=== PATIENT | male | born 1950 | race Caucasian/White ===

== ENCOUNTER 2020-07-20 06:21 | Day surgery (SDC) | payer MEDICARE, SELFPAY ==
--- NOTE | 2020-07-19 12:18 | HO.ANESPROP2 ---
Documented by User: Sasha Henry 07/19/20 12:21 HPI - Anesthesia Eval Consult details Narrative: 69yo M for TURBT Last TURBT done 11/2019 with GA-LMA 5 PMFSH Past Medical History Medical History Bladder tumor Elevated cholesterol Hematuria HTN (hypertension) Prostate CA Surgical History Surgical History H/O prostate biopsy Social History Social History Smoking Status: Never smoker Second Hand Smoke Exposure: No Use of substances other than those prescribed or required for medical reasons: No Advance Directives: No Advance Directives Information Provided: No Meds Allergies Allergy/AdvReac Type Severity Reaction Status Date / Time No Known Allergies Allergy Unverified 07/01/20 15:38 [No Known Allergies*] acetaminophen [Percocet] AdvReac Unknown face got Verified 04/15/20 00:00 really red oxycodone [Percocet] AdvReac Unknown face got Verified 04/15/20 00:00 really red Home Medications Medication Instructions Recorded Confirmed Type atorvastatin 1 tab PO DAILY 07/19/20 07/19/20 History enzalutamide [Xtandi] mg PO 07/19/20 07/19/20 History lisinopril 1 tab PO DAILY 07/19/20 07/19/20 History tamsulosin 1 cap PO BID 07/19/20 07/19/20 History Exam Exam Date and Time: July 19, 2020 1218 Pertinent Lab Results Pertinent Lab Results: EKG 05/2020 NSR@72. LAD Laboratory Tests 06/03/20 06/03/20 06/03/20 20:21 20:21 20:21 WBC 9.0 Hgb 13.2 L Hct 40.3 L Plt Count 305 PT 10.4 L INR 0.9 APTT 30.6 Sodium 140 Potassium 4.8 Chloride 106 Bicarbonate 26 Anion Gap 13 BUN 38 H Creatinine 1.39 Estimated Creat Clear 63.8 Est GFR (Non-Af Amer) 51 Random Glucose 114 Assessment and Plan Assessment Anesthesia Assessment: Chart Reviewed Documented by User: Lisbeth Salas 07/20/20 08:15 PMFSH Past Medical History Medical History Bladder tumor Elevated cholesterol Hematuria HTN (hypertension) Prostate CA Surgical History Surgical History H/O prostate biopsy Social History Social History Smoking Status: Never smoker Second Hand Smoke Exposure: No Use of substances other than those prescribed or required for medical reasons: No Advance Directives: No Advance Directives Information Provided: No Meds Allergies Allergy/AdvReac Type Severity Reaction Status Date / Time No Known Allergies Allergy Unverified 07/01/20 15:38 [No Known Allergies*] acetaminophen [Percocet] AdvReac Unknown face got Verified 04/15/20 00:00 really red oxycodone [Percocet] AdvReac Unknown face got Verified 04/15/20 00:00 really red Home Medications Medication Instructions Recorded Confirmed Type atorvastatin 1 tab PO DAILY 07/19/20 07/19/20 History enzalutamide [Xtandi] mg PO 07/19/20 07/19/20 History lisinopril 1 tab PO DAILY 07/19/20 07/19/20 History tamsulosin 1 cap PO BID 07/19/20 07/19/20 History Assessment and Plan Assessment Anesthesia Assessment: Anesthesia Plan Discussed, Consent Obtained and Chart Reviewed Final Anesthetic Review NPO: Yes ASA Class: II Final Preanesthetic Review: No Changes in Pt Med Stat, Meds & Allergies Reviewed, Consent Obtained/Reviewed, Med/Surg/Anes Hx Reviewed and Anes Risks/Benef Reviewed Patient Risk: Low Procedure Risk: Low Assessment/Block/Sedation in SS: Assess/Block/Sedation-SS Anesthetic Plan Anesthetic Plan: GA Disposition: Standard PACU
[2020-07-20] VITALS (8 sets, daily range): BP systolic 124–141; BP diastolic 76–88; PULSE 59–71; RESP 16–20; TEMP 36; O2SAT 93–99; BMI 30.5
[2020-07-20] MEDS: levoFLOXacin/D5W 500 MG/100 ML PIGGYBACK 100 MG IV (07:00)
[2020-07-20] MEDS: Lactated Ringers 1,000 ML 100 ML IVCONT (07:00)
--- NOTE | 2020-07-20 07:22 | MHC.SHP ---
Surgical H&P Section A The patient is an INPATIENT: No The History & Physical has been completed within 30 days and I have reviewed it.: Yes Section B Chief Complaint: Secondary malignant neoplasm Allergies: Allergies Allergy/AdvReac Type Severity Reaction Status Date / Time No Known Allergies Allergy Unverified 07/01/20 15:38 [No Known Allergies*] acetaminophen [Percocet] AdvReac Unknown face got Verified 04/15/20 00:00 really red oxycodone [Percocet] AdvReac Unknown face got Verified 04/15/20 00:00 really red Plan Patient has been examined and remains a candidate for the planned procedure
[2020-07-20] MEDS: Gentamicin Sulfate/NaCl 80 MG/100 ML PIGGYBACK 100 MG IV (07:45)
--- NOTE | 2020-07-20 08:14 | PM.OP ---
Brief Operative Note Date of procedure: 07/20/20 Pre-op diagnosis: bladder cancer Post-op diagnosis: same Procedure: TURBT Anesthesia: GLMA Surgeon: Leon Jessica III Pathology: other (dome lesions pappillary. >2.5 less gutierrez 5 cm) Condition: stable Disposition: same day
--- NOTE | 2020-07-20 08:15 | HO.ANESPROP2 ---
[facility] Past Medical History Medical History Bladder tumor Elevated cholesterol Hematuria HTN (hypertension) Prostate CA Surgical History Surgical History H/O prostate biopsy Social History Social History Smoking Status: Never smoker Second Hand Smoke Exposure: No Use of substances other than those prescribed or required for medical reasons: No Advance Directives: No Advance Directives Information Provided: No Meds Allergies Allergy/AdvReac Type Severity Reaction Status Date / Time No Known Allergies Allergy Unverified 07/01/20 15:38 [No Known Allergies*] acetaminophen [Percocet] AdvReac Unknown face got Verified 04/15/20 00:00 really red oxycodone [Percocet] AdvReac Unknown face got Verified 04/15/20 00:00 really red Home Medications Medication Instructions Recorded Confirmed Type atorvastatin 1 tab PO DAILY 07/19/20 07/19/20 History enzalutamide [Xtandi] mg PO 07/19/20 07/19/20 History lisinopril 1 tab PO DAILY 07/19/20 07/19/20 History tamsulosin 1 cap PO BID 07/19/20 07/19/20 History Exam Exam Date and Time: July 20, 202015 Height,Weight and Vital Signs: Height 6 ft Weight 102.058 kg Last Vital Signs Temp 96.8 F 07/20/20 07:23 Pulse 71 07/20/20 07:23 Resp 16 07/20/20 07:23 BP 141/87 H 07/20/20 07:23 Pulse Ox 97 07/20/20 07:23 Airway Mallampati Class: II TM Dist: >3cm Neck ROM: Full Loose/Missing/Broken Teeth: No
--- NOTE | 2020-07-20 10:24 | HO.POSTANES ---
Post Anesthesia Evaluation Post Anesthesia Evaluation Vital Signs: Vital Signs Temp Pulse Resp BP Pulse Ox 07/20/20 10:08 60 20 137/87 95 07/20/20 09:51 62 20 139/80 99 07/20/20 09:36 59 20 137/88 98 07/20/20 09:21 65 16 135/77 95 07/20/20 09:16 69 16 133/80 93 07/20/20 09:11 67 16 131/76 93 07/20/20 09:06 71 16 124/77 95 07/20/20 07:23 96.8 F 71 16 141/87 H 97 Anesthesia: General LMA Mental Status: Awake Pain Control: Satisfactory Nausea/Vomiting: None Hydration: Adequate Anesthesia-Related Issues: No Anes. Related Issues
== END 2020-07-20 10:29 | disposition home or self-care (01) ==
PROVIDERS: PCP Family Medicine; Visit Provider Urology
PROC: 0TBB8ZZ Excision of Bladder, Via Natural or Artificial Opening Endoscopic (ICD-10-PCS; CPT 52235; principal; 2020-07-20 07:50)
DX: C67.1 Malignant neoplasm of dome of bladder (principal); Z85.46 Personal history of malignant neoplasm of prostate; I10 Essential (primary) hypertension; E78.00 Pure hypercholesterolemia, unspecified; Z79.899 Other long term (current) drug therapy; Z87.891 Personal history of nicotine dependence
CPT/HCPCS: 52235; 88307; J1580; J1956; J2405; J3010

== ENCOUNTER → 2020-07-29 14:25 | Outpatient (BNVA) | payer MEDICARE, SELFPAY | PROVIDERS: PCP Family Medicine; Visit Provider Urology | DX: Z48.3 Aftercare following surgery for neoplasm (principal); R35.1 Nocturia | CPT/HCPCS: 51798; 99214 ==

== ENCOUNTER 2020-08-26 11:06 | Outpatient (REF) | payer MEDICARE, SELFPAY ==
[2020-08-26 14:51] LABS: Prostate Specific Antigen 0.18 ng/mL (<0.05-4.0)
== END 2020-08-26 11:07 | disposition home or self-care (01) ==
LOC: HO.10HDL 11:06
PROVIDERS: Visit Provider Urology
DX: C61 Malignant neoplasm of prostate (principal)
CPT/HCPCS: 84153

== ENCOUNTER → 2020-10-28 13:27 | Outpatient (BNVA) | payer MEDICARE, SELFPAY | PROVIDERS: PCP Family Medicine; Visit Provider Urology | DX: C61 Malignant neoplasm of prostate (principal); C67.1 Malignant neoplasm of dome of bladder | CPT/HCPCS: 52000; 81002; 99212 ==

== ENCOUNTER 2020-11-08 19:36 | Emergency (ER) | payer MEDICARE, SELFPAY ==
[2020-11-08] VITALS (7 sets, daily range): BP systolic 120–144; BP diastolic 69–84; PULSE 76–129; RESP 16–21; TEMP 36.7–36.8; O2SAT 94–99; BMI 28.8
--- NOTE | 2020-11-08 19:50 | ECG_ITS ---
Test Reason : SYNCOPE Blood Pressure : / mmHG Vent. Rate : 085 BPM Atrial Rate : 085 BPM P-R Int : 152 ms QRS Dur : 108 ms QT Int : 406 ms P-R-T Axes : 023 -77 012 degrees QTc Int : 483 ms Normal sinus rhythm Pulmonary disease pattern Left anterior fascicular block Prolonged QT Abnormal ECG When compared to the previous EKG of No significant changes seen Referred By: Flory Juan Electronically Signed By:Shaheen Damian
--- NOTE | 2020-11-08 19:50 | CT_ITS ---
EXAMINATION: CT HEAD WITH/WITHOUT CONTRAST CLINICAL INFORMATION: Near syncope. Headache. BLADDER CA, HIGH TESS, HTN, PROSTATE CA COMPARISON: CT head 06/03/2020 MR brain 05/25/2020 TECHNIQUE: Contiguous axial imaging was performed from the skull base to vertex before and after the administration of 100 mL of Omnipaque [address] examination was performed using dose optimization techniques as appropriate, variously including the following: *Automated exposure control *Adjustment of mA and/or kV according to patient size (this includes techniques or standardized protocols for targeted exams where dose is matched to indication/reason for exam; i.e. extremities or head) *Use of iterative reconstruction technique DLP: 1638 mGy-cm FINDINGS: There is no evidence of acute intracranial hemorrhage or territorial infarction. No abnormal mass effect or midline shift is seen. Cade to white matter differentiation is well preserved. No extra-axial fluid collections are identified. There is no abnormal enhancement. There is atrophy with prominence of the ventricles and the sulci and hypodensity of the periventricular white matter due to chronic small vessel ischemic disease. There are vascular calcifications of the internal carotid arteries bilaterally. The osseous structures and soft tissues are normal. The mastoid air cells and visualized portions of the paranasal sinuses are well aerated. CT/CT head/brain wo/w con IMPRESSION: No acute intracranial pathology.
--- NOTE | 2020-11-08 19:51 | XR_ITS ---
EXAMINATION: PORTABLE CHEST 1 VIEW CLINICAL INFORMATION: near syncope . COMPARISON: 06/03/2020. TECHNIQUE: Portable frontal view of the chest was obtained. FINDINGS: The lungs are hypoexpanded with linear left basilar markings more likely due to atelectasis. No focal infiltrate, effusion, edema, or pneumothorax. Cardiac and mediastinal silhouettes are within normal limits for technique. No acute bony abnormality seen. XR/XR chest 1V IMPRESSION: Hypoexpanded with linear left basilar markings more likely due to atelectasis
--- NOTE | 2020-11-08 19:59 | CT_ITS ---
EXAMINATION: CTA CHEST, ABDOMEN AND PELVIS WITH CONTRAST CLINICAL INFORMATION: Assess for dissection, abdominal pain, near syncope. COMPARISON: CT abdomen pelvis 07/03/2019 TECHNIQUE: Multidetector volumetric imaging was performed from the thoracic inlet through the pubic symphysis before as well as following administration of 100 mL of Omnipaque 350. Sagittal and coronal reformatted images were obtained on the technologist's workstation. This CT examination was performed using dose optimization techniques as appropriate, variously including the following: *Automated exposure control. *Adjustment of mA and/or kV according to patient size (this includes techniques or standardized protocols for targeted exams where dose is matched to indication/reason for exam; i.e. extremities or head). *Use of iterative reconstruction technique. DLP: 450 mGy-cm VASCULAR FINDINGS: CHEST: The thoracic aorta appears unremarkable without aneurysm or dissection. A three-vessel branching pattern of the aortic arch is seen with widely patent but ectatic great vessels. The pulmonary arteries show no definitive evidence of pulmonary emboli. There is some motion artifact at the bases which limits assessment. The pulmonary veins are unremarkable. ABDOMEN AND PELVIS: The abdominal aorta appears normal without aneurysm or dissection. Aortic bifurcation is patent. The iliofemoral arteries are normal. The right femoral bifurcation is low. The celiac and SMA are patent as is the GRIFFIN. The celiac is a rather small caliber vessel. Single renal arteries are present bilaterally which are patent. NONVASCULAR FINDINGS: CHEST: Lung: There is some patchy opacities/atelectasis present in the lingula. The lungs are otherwise clear without focal opacity or nodule. Mediastinum: The mediastinum is normal. The central vascular structures are unremarkable. No hilar or mediastinal lymphadenopathy. Pericardium/Pleura: No significant effusion. No pleural mass or thickening. Chest Wall/Axilla: Degenerative changes present in the spine. No bony destructive lesions seen. No axillary adenopathy. ABDOMEN/PELVIS: Peritoneal Space: No significant free air or free fluid identified. Previously seen ascites has resolved. Liver, Gallbladder, Biliary Tree: The liver is normal in size, shape, and attenuation. A small 5 mm hypodensity seen just below the dome of the right hemidiaphragm. No other focal hepatic lesion or biliary ductal dilatation is present. The gallbladder is contracted but otherwise unremarkable with no evidence of radiopaque gallstones, gallbladder wall thickening, or obvious pericholecystic inflammatory changes. Pancreas: Unremarkable. Spleen: Unremarkable. Adrenal Glands: Unremarkable. Kidneys and Ureters: The kidneys are normal in size, shape, and attenuation. No hydronephrosis, hydroureter, or calculi seen. No perinephric stranding. Bladder: Unremarkable. Gastrointestinal Tract: Diverticula are present predominantly in the sigmoid without evidence of diverticulitis. The small and large bowel are otherwise unremarkable. The appendix is unremarkable. Abdominal Wall: No significant hernia is appreciated. Lymph Nodes: No lymphadenopathy. PELVIC VISCERA: Unremarkable. A large calcification is noted at the base of the prostate on the left. OSSEUS STRUCTURES: Degenerative changes present throughout the spine most marked at L3-L4, L4-L5 and L5-S1. No bony destructive lesions seen. CT/CT angio chest PE protocol IMPRESSION: 1. No evidence of pulmonary emboli. 2. No evidence of aortic dissection. 3. Incidental note made of patchy changes in the lingula, degenerative changes in the spine, tiny hepatic hypodensity and colonic diverticulosis.
[2020-11-08] MEDS: 0.9 % Sodium Chloride 1,000 ML 999 ML IV (20:20)
--- NOTE | 2020-11-08 20:23 | ED.GENADULT ---
HPI - General Adult General Chief complaint: Syncope Stated complaint: syncope fall Time Seen by Provider: 11/08/20 19:41 Source: patient Mode of arrival: ambulatory Limitations: no limitations History of Present Illness HPI narrative: 62-year-old male with a past medical history of high cholesterol, hypertension, prostate cancer which is metastatic on Xandi and Lupron injections here with complaints of near syncopal episode which occurred in a shower. Per patient he went to get into the shower and felt well prior to this. He started to feel hot all over, had a headache and felt lightheaded. He also had some associated chest pain and abdominal pain with shortness of breath. No nausea, vomiting, diaphoresis, cough, fevers, chills, shaking activity, diarrhea. Patient now at rest denies lightheadedness but is still complaining of a generalized headache with chest and abdominal pain. Per report from EMS there was also concern that the patient was slow to respond, lethargic at times. Onset (ago): hour(s) (<1 hr [employer]) Location: head, chest and abdomen Related Data Home Medications Medication Instructions Recorded Confirmed atorvastatin 1 tab PO DAILY 07/19/20 10/28/20 lisinopril 1 tab PO DAILY 07/19/20 10/28/20 tamsulosin 1 cap PO BID 07/19/20 10/28/20 Previous Rx's Medication Instructions Recorded enzalutamide 40 mg capsule 80 mg PO DAILY #60 cap 09/20/20 Allergies Allergy/AdvReac Type Severity Reaction Status Date / Time No Known Allergies Allergy Unverified 07/01/20 15:38 [No Known Allergies*] acetaminophen [Percocet] AdvReac Unknown face got Verified 04/15/20 00:00 really red oxycodone [Percocet] AdvReac Unknown face got Verified 04/15/20 00:00 really red Review of Systems Review of Systems: Yes all other systems are reviewed and are negative Constitutional: Constitutional: Reports no additional constitutional complaints, Denies body ache(s), Denies chills, Denies fever(s), Reports headache(s) and Denies weakness Eyes: Eyes: Reports no additional eye complaints and Denies change in vision ENT: Reports system reviewed and no additional complaints, except as documented, Reports dizziness, Reports headache(s), Denies nasal congestion, Denies nasal discharge and Denies neck pain Cardiovascular: Cardiovascular: Reports no additional cardiovascular complaints, Reports chest pain, Denies leg edema and Denies dyspnea Respiratory: Respiratory: Reports no additional respiratory complaints, Denies cough and Denies dyspnea Gastrointestinal: Gastrointestinal: Reports no additional gastrointestinal complaints, Reports abdominal pain, Denies diarrhea, Denies nausea and Denies vomiting Genitourinary: Genitourinary: Denies urinary incontinence Musculoskeletal: Musculoskeletal: Reports no additional musculoskeletal complaints, Denies back pain, Denies arthralgias, Denies joint swelling, Denies neck pain, Denies numbness and Denies tingling Integumentary/Breasts: Skin/Breast: Reports system reviewed and no additional complaints, except as docu and Denies rash Neurologic: Reports system reviewed and no additional complaints, except as documented, Denies Abnormal speech present, Reports dizziness, Reports headache(s), Denies numbness, Denies tingling and Denies weakness PMFSH Past Medical History Medical History Bladder tumor Elevated cholesterol Hematuria HTN (hypertension) Prostate CA Surgical History H/O prostate biopsy Social History Social History Alcohol intake: never Smoking Status: Never smoker Smoked in Last 30 Days: No Second Hand Smoke Exposure: No Use of substances other than those prescribed or required for medical reasons: No Advance Directives: No Advance Directives Information Provided: No Physical Exam Vital Signs: Vital Signs: Last Vital Signs Temp 97.6 F 11/09/20 01:44 Pulse 72 11/09/20 01:44 Resp 16 11/09/20 01:44 BP 121/51 L 11/09/20 01:44 Pulse Ox 96 11/09/20 01:44 Body Mass Index 28.8 Const: General: alert Orientation/consciousness: patient oriented x3 Limitations: no limitations HENMT: Head: Yes normal to inspection Ears: hearing grossly normal bilaterally General nose exam: Normal external nose present Face and sinus: Yes normal facial exam Mouth: Normal oral and palatal mucosa present Throat: Yes posterior oropharynx normal Eyes: General: appearance normal, both eyes and all related structures Visual Braxton: normal visual braxton by confrontation Alignment and Position: alignment normal Pupils: Equal, round and reactive pupils present EOM: EOMs intact bilaterally Neck: Neck: Yes normal visual inspection Chest: Chest palpation & inspection: normal inspection of the chest Resp: Effort & Inspection: normal respiratory effort Auscultation: clear to auscultation bilaterally Cardio: Rate: regular rate Rhythm: regular rhythm Bruits: no abdominal aortic bruits Peripheral pulses: Peripheral pulses 2+ throughout GI: Inspection: Yes normal to inspection Palpation (GI): No Abdominal aortic bruit present, Soft to palpation and Tenderness to palpation present (GI) (moderate, mild guarding. no rebound ) in the epigastrum Auscultation: normal bowel sounds Back/Spine/Pelvis: Thoracic/Lumbar Spine: thoracic and lumbar spine normal to inspection Skin: General skin exam: no rashes or lesions noted Neuro: Other: slow to respond, requires frequent prompting for questions General: patient oriented x3, no focal motor deficits, normal sensation to monofilament and Unable to assess gait Cranial nerves: Yes CN's II-XII intact bilaterally, Yes Equal, round and reactive pupils present, Yes Bilaterally intact EOM present, Yes Nystagmus not present, Yes Normal facial strength present and Yes Midline tongue present Cognition (Neuro): normal cognition Speech: No Abnormal speech present Gait exam (Neuro): Unable to assess gait Motor exam (neuro): 5/5 motor strength present throughout Sensory Exam: Normal double simultaneous stimulation for sensation Coordination: [id number] test normal Extrem: General: Yes normal to inspection NIH Stroke Scale Internal: Initial- Upon Arrival Level of Consciousness: Alert Level of Consciousness Questions: Answers both questions correctly Level of Consciousness Commands: Performs both tasks correctly Best Gaze: Normal Visual: No visual loss Facial Palsy: Normal Motor Arm (Right): No drift Motor Arm (Left): No drift Motor Leg (Right): No drift Motor Leg (Left): No drift Limb Ataxia: Absent Sensory: Normal Best Language: No aphasia Dysarthia: Normal Extinction and Inattention: No abnormality Score: 0 Course Course Course Narrative: 70-year-old male after near syncopal episode in the shower now complaining of generalized headache with chest and abdominal pain. There was also concern for some confusion from EMS and family. Patient is alert and oriented but slow to respond to questions and requires frequent prompting. No overt neurological deficit. Will plan for CT head, CT abdomen and pelvis and CTA chest, labs, UA, EKG, orthostatic vital signs. 0100-imaging shows no evidence of PE, no evidence of aortic dissection and no acute intracranial pathology. Labs including troponin are unremarkable. Orthostatics were significantly positive with a more than 40 point increase in his heart rate. The patient received 1 L of normal saline. I went to re-evaluate him and he is feeling much improved. He is alert and oriented and answering questions appropriately. He would like to be discharged home. Likely near syncope, most likely from vasovagal being in the warm shower. Will plan for repeat troponin and if negative discharge home. 0200-Sign out to night team pending above. Medical Decision Making MDM Narrative Medical decision making narrative: ICH vs lesion vs SAH, PE, Aortic dissection orthostatic hypotention, electrolyte abnormality, anemia, acs, underlying infection (PNA, UTI) 0100-less likely ICH or SAH with negative CT head and symptoms improved. Less likely PE with negative CTA. Less likely aortic dissection with negative CT Abd with IV contrast. Less likely electrolyte abnormality with normal labs. Likely anemia with normal CBCs. Less likely ACS with EKG which shows no ischemic changes and troponin x2 negative. The likely underlying infection with negative chest x-ray, UA and COVID-19. Medical Records Medical records reviewed: Yes I reviewed the patient's medical records. Lab Data Lab results reviewed: Yes I reviewed the patient's lab results. Result diagrams: 11/08/20 20:28 11/08/20 21:05 Labs: Lab Results 11/08/20 11/08/20 11/08/20 Range/Units 20:28 20:28 20:28 WBC 10.5 (4.8-10.8) X10*3/uL RBC 4.33 L (4.60-5.80) X10*6/uL Hgb 14.1 (14.0-18.0) g/dl Hct 42.2 (42-52) % MCV 97.5 (80-98) fL MCH 32.6 (27.0-33.0) pg MCHC 33.4 (31.0-36.0) g/dl RDW 13.0 (11.0-16.0) % Plt Count 313 (160-400) X10*3/uL MPV 9.9 (9.4-12.4) fL Immature Gran % (Auto) 0.3 (0.0-0.4) % Neut % (Auto) 71.1 (45-73) % Lymph % (Auto) 21.2 (20-40) % [place] % (Auto) 5.7 (2-11) % Eos % (Auto) 1.2 (0-4) % Baso % (Auto) 0.5 (0-2) % Lymph # (Auto) 2.2 (1.2-4.9) X10*3/uL [place] # (Auto) 0.6 (0.1-1.2) X10*3/uL Eos # (Auto) 0.1 (0.0-0.4) X10*3/uL Baso # (Auto) 0.1 (0.0-0.2) X10*3/uL Abs Immat Gran (auto) 0.03 (0.00-0.03) X10*3/uL Absolute Neuts (auto) 7.4 (2.0-8.3) X10*3/uL Absolute Nucleated RBC 0.000 (0.0-0.012) X10*3/uL Nucleated RBC % (auto) 0.0 (0.0-0.2) /100WBC PT 10.3 L (10.8-13.0) SEC INR 0.9 (0.9-1.1) Sodium (135-145) mmol/L Potassium (3.3-5.1) mmol/l Chloride (96-108) mmol/L Carbon Dioxide (22-29) mmol/L Anion Gap (12-20) BUN (9-16) mg/dL Creatinine (0.5-1.4) mg/dL Estim Creat Clear Calc Estimated GFR Random Glucose (60-115) mg/dL Calcium (8.4-10.2) mg/dL Magnesium (1.6-2.6) mg/dL Total Bilirubin (0.0-1.0) mg/dL Direct Bilirubin (0.0-0.5) mg/dL AST (5-37) U/L ALT (0-40) U/L Alkaline Phosphatase (39-117) U/L Troponin I High Sens < 3.5 (<3.5-35.0) ng/L Total Protein (6.5-8.0) g/dL Albumin (3.5-5.0) g/dL Urine Color Urine Appearance Urine pH (5.0-8.0) Ur Specific [place] (1.005-1.025) Urine Protein (NEG-TRACE) MG/DL Urine Glucose (UA) (NEG) MG/DL Urine Ketones (NEG) MG/DL Urine Blood (NEG) Urine Nitrite (NEG) Ur Leukocyte Esterase (NEG) COVID-19 ([facility]) (Negative) COVID-19 Clin Com 11/08/20 11/08/20 11/08/20 Range/Units 21:05 23:51 23:51 WBC (4.8-10.8) X10*3/uL RBC (4.60-5.80) X10*6/uL Hgb (14.0-18.0) g/dl Hct (42-52) % MCV (80-98) fL MCH (27.0-33.0) pg MCHC (31.0-36.0) g/dl RDW (11.0-16.0) % Plt Count (160-400) X10*3/uL MPV (9.4-12.4) fL Immature Gran % (Auto) (0.0-0.4) % Neut % (Auto) (45-73) % Lymph % (Auto) (20-40) % [place] % (Auto) (2-11) % Eos % (Auto) (0-4) % Baso % (Auto) (0-2) % Lymph # (Auto) (1.2-4.9) X10*3/uL [place] # (Auto) (0.1-1.2) X10*3/uL Eos # (Auto) (0.0-0.4) X10*3/uL Baso # (Auto) (0.0-0.2) X10*3/uL Abs Immat Gran (auto) (0.00-0.03) X10*3/uL Absolute Neuts (auto) (2.0-8.3) X10*3/uL Absolute Nucleated RBC (0.0-0.012) X10*3/uL Nucleated RBC % (auto) (0.0-0.2) /100WBC PT (10.8-13.0) SEC INR (0.9-1.1) Sodium 141 (135-145) mmol/L Potassium 5.1 (3.3-5.1) mmol/l Chloride 109 H (96-108) mmol/L Carbon Dioxide 24 (22-29) mmol/L Anion Gap 13 (12-20) BUN 32 H (9-16) mg/dL Creatinine 1.22 (0.5-1.4) mg/dL Estim Creat Clear Calc 73.8 Estimated GFR 59 Random Glucose 138 H (60-115) mg/dL Calcium 8.7 (8.4-10.2) mg/dL Magnesium 2.2 (1.6-2.6) mg/dL Total Bilirubin 0.9 (0.0-1.0) mg/dL Direct Bilirubin 0.3 (0.0-0.5) mg/dL AST 22 (5-37) U/L ALT 21 (0-40) U/L Alkaline Phosphatase 110 (39-117) U/L Troponin I High Sens (<3.5-35.0) ng/L Total Protein 6.8 (6.5-8.0) g/dL Albumin 3.8 (3.5-5.0) g/dL Urine Color YELLOW Urine Appearance CLEAR Urine pH 6.5 (5.0-8.0) Ur Specific [place] <= 1.005 (1.005-1.025) Urine Protein TRACE (NEG-TRACE) MG/DL Urine Glucose (UA) NEG (NEG) MG/DL Urine Ketones NEG (NEG) MG/DL Urine Blood NEG (NEG) Urine Nitrite NEG (NEG) Ur Leukocyte Esterase NEG (NEG) COVID-19 ([facility]) Negative (Negative) COVID-19 Clin Com See Note 11/09/20 Range/Units 01:43 WBC (4.8-10.8) X10*3/uL RBC (4.60-5.80) X10*6/uL Hgb (14.0-18.0) g/dl Hct (42-52) % MCV (80-98) fL MCH (27.0-33.0) pg MCHC (31.0-36.0) g/dl RDW (11.0-16.0) % Plt Count (160-400) X10*3/uL MPV (9.4-12.4) fL Immature Gran % (Auto) (0.0-0.4) % Neut % (Auto) (45-73) % Lymph % (Auto) (20-40) % [place] % (Auto) (2-11) % Eos % (Auto) (0-4) % Baso % (Auto) (0-2) % Lymph # (Auto) (1.2-4.9) X10*3/uL [place] # (Auto) (0.1-1.2) X10*3/uL Eos # (Auto) (0.0-0.4) X10*3/uL Baso # (Auto) (0.0-0.2) X10*3/uL Abs Immat Gran (auto) (0.00-0.03) X10*3/uL Absolute Neuts (auto) (2.0-8.3) X10*3/uL Absolute Nucleated RBC (0.0-0.012) X10*3/uL Nucleated RBC % (auto) (0.0-0.2) /100WBC PT (10.8-13.0) SEC INR (0.9-1.1) Sodium (135-145) mmol/L Potassium (3.3-5.1) mmol/l Chloride (96-108) mmol/L Carbon Dioxide (22-29) mmol/L Anion Gap (12-20) BUN (9-16) mg/dL Creatinine (0.5-1.4) mg/dL Estim Creat Clear Calc Estimated GFR Random Glucose (60-115) mg/dL Calcium (8.4-10.2) mg/dL Magnesium (1.6-2.6) mg/dL Total Bilirubin (0.0-1.0) mg/dL Direct Bilirubin (0.0-0.5) mg/dL AST (5-37) U/L ALT (0-40) U/L Alkaline Phosphatase (39-117) U/L Troponin I High Sens < 3.5 (<3.5-35.0) ng/L Total Protein (6.5-8.0) g/dL Albumin (3.5-5.0) g/dL Urine Color Urine Appearance Urine pH (5.0-8.0) Ur Specific [place] (1.005-1.025) Urine Protein (NEG-TRACE) MG/DL Urine Glucose (UA) (NEG) MG/DL Urine Ketones (NEG) MG/DL Urine Blood (NEG) Urine Nitrite (NEG) Ur Leukocyte Esterase (NEG) COVID-19 ([facility]) (Negative) COVID-19 Clin Com Imaging Data Chest x-ray: Attestation: I personally reviewed and interpreted this imaging study as follows: Radiologist's impression: [address] [id number] ReportSigned Patient: Kody Tinajero WMR#: [id number]: 1950cct:[id number]/Sex: 70 / MADM Date: 11/08/20Loc: HO.EDAttending Dr: Ordering Physician: KAELA LEON NP Date of Service: 11/08/20 Procedure(s): XR chest 1V Accession Number(s): [id number] cc: KAELA LEON NP~ EXAMINATION: PORTABLE CHEST 1 VIEW CLINICAL INFORMATION: near syncope . COMPARISON: 06/03/2020. TECHNIQUE: Portable frontal view of the chest was obtained. FINDINGS: The lungs are hypoexpanded with linear left basilar markings more likely due to atelectasis. No focal infiltrate, effusion, edema, or pneumothorax. Cardiac and mediastinal silhouettes are within normal limits for technique. No acute bony abnormality seen. XR/XR chest 1V IMPRESSION: Hypoexpanded with linear left basilar markings more likely due to atelectasis CT scan - head: Attestation: I personally reviewed and interpreted this imaging study as follows: Radiologist's impression: EXAMINATION: CT HEAD WITH/WITHOUT CONTRAST CLINICAL INFORMATION: Near syncope. Headache. BLADDER CA, HIGH TESS, HTN, PROSTATE CA COMPARISON: CT head 06/03/2020 MR brain 05/25/2020 TECHNIQUE: Contiguous axial imaging was performed from the skull base to vertex before and after the administration of 100 mL of Omnipaque [address] examination was performed using dose optimization techniques as appropriate, variously including the following: *Automated exposure control *Adjustment of mA and/or kV according to patient size (this includes techniques or standardized protocols for targeted exams where dose is matched to indication/reason for exam; i.e. extremities or head) *Use of iterative reconstruction technique DLP: 1638 mGy-cm FINDINGS: There is no evidence of acute intracranial hemorrhage or territorial infarction. No abnormal mass effect or midline shift is seen. Cade to white matter differentiation is well preserved. No extra-axial fluid collections are identified. There is no abnormal enhancement. There is atrophy with prominence of the ventricles and the sulci and hypodensity of the periventricular white matter due to chronic small vessel ischemic disease. There are vascular calcifications of the internal carotid arteries bilaterally. The osseous structures and soft tissues are normal. The mastoid air cells and visualized portions of the paranasal sinuses are well aerated. CT/CT head/brain wo/w con IMPRESSION: No acute intracranial pathology. CTA chest, Ct A/P with contrast: Attestation: I personally reviewed and interpreted this imaging study as follows: Radiologist's impression: EXAMINATION: CTA CHEST, ABDOMEN AND PELVIS WITH CONTRAST CLINICAL INFORMATION: Assess for dissection, abdominal pain, near syncope. COMPARISON: CT abdomen pelvis 07/03/2019 TECHNIQUE: Multidetector volumetric imaging was performed from the thoracic inlet through the pubic symphysis before as well as following administration of 100 mL of Omnipaque 350. Sagittal and coronal reformatted images were obtained on the technologist's workstation. This CT examination was performed using dose optimization techniques as appropriate, variously including the following: *Automated exposure control. *Adjustment of mA and/or kV according to patient size (this includes techniques or standardized protocols for targeted exams where dose is matched to indication/reason for exam; i.e. extremities or head). *Use of iterative reconstruction technique. DLP: 450 mGy-cm VASCULAR FINDINGS: CHEST: The thoracic aorta appears unremarkable without aneurysm or dissection. A three-vessel branching pattern of the aortic arch is seen with widely patent but ectatic great vessels. The pulmonary arteries show no definitive evidence of pulmonary emboli. There is some motion artifact at the bases which limits assessment. The pulmonary veins are unremarkable. ABDOMEN AND PELVIS: The abdominal aorta appears normal without aneurysm or dissection. Aortic bifurcation is patent. The iliofemoral arteries are normal. The right femoral bifurcation is low. The celiac and SMA are patent as is the GRIFFIN. The celiac is a rather small caliber vessel. Single renal arteries are present bilaterally which are patent. NONVASCULAR FINDINGS: CHEST: Lung: There is some patchy opacities/atelectasis present in the lingula. The lungs are otherwise clear without focal opacity or nodule. Mediastinum: The mediastinum is normal. The central vascular structures are unremarkable. No hilar or mediastinal lymphadenopathy. Pericardium/Pleura: No significant effusion. No pleural mass or thickening. Chest Wall/Axilla: Degenerative changes present in the spine. No bony destructive lesions seen. No axillary adenopathy. ABDOMEN/PELVIS: Peritoneal Space: No significant free air or free fluid identified. Previously seen ascites has resolved. Liver, Gallbladder, Biliary Tree: The liver is normal in size, shape, and attenuation. A small 5 mm hypodensity seen just below the dome of the right hemidiaphragm. No other focal hepatic lesion or biliary ductal dilatation is present. The gallbladder is contracted but otherwise unremarkable with no evidence of radiopaque gallstones, gallbladder wall thickening, or obvious pericholecystic inflammatory changes. Pancreas: Unremarkable. Spleen: Unremarkable. Adrenal Glands: Unremarkable. Kidneys and Ureters: The kidneys are normal in size, shape, and attenuation. No hydronephrosis, hydroureter, or calculi seen. No perinephric stranding. Bladder: Unremarkable. Gastrointestinal Tract: Diverticula are present predominantly in the sigmoid without evidence of diverticulitis. The small and large bowel are otherwise unremarkable. The appendix is unremarkable. Abdominal Wall: No significant hernia is appreciated. Lymph Nodes: No lymphadenopathy. PELVIC VISCERA: Unremarkable. A large calcification is noted at the base of the prostate on the left. OSSEUS STRUCTURES: Degenerative changes present throughout the spine most marked at L3-L4, L4-L5 and L5-S1. No bony destructive lesions seen. CT/CT angio abdomen pelvis IMPRESSION: 1. No evidence of pulmonary emboli. 2. No evidence of aortic dissection. 3. Incidental note made of patchy changes in the lingula, degenerative changes in the spine, tiny hepatic hypodensity and colonic diverticulosis. ECG Data Attestation: I personally reviewed and interpreted this ECG as follows: Interpretation: NSR with rate 85, normal pr, normal qrs, prolonged qtc 483 Discharge Plan Discharge Clinical Impression: Orthostatic hypotension, Vaso vagal episode Patient Disposition: Home, Self-Care Instructions: Hypotension (ED), Near Syncope (ED) Additional Instructions: Change positions slowly Drink plenty of fluids stay well hydrated. Prescriptions: No Action enzalutamide [Xtandi] 40 mg capsule 80 mg PO DAILY Qty: 60 RF: 5 atorvastatin 40 mg tablet 1 tab PO DAILY RF: 0 tamsulosin 0.4 mg capsule 1 cap PO BID RF: 0 lisinopril 10 mg tablet 1 tab PO DAILY RF: 0 Referrals: Physician,Unknown [Primary Care Provider] - 2 days
[2020-11-08 20:38] LABS: MANUAL DIFF FLAG NO
[2020-11-08 20:39] LABS: Basophils Absolute Auto 0.1 X10*3/uL (0.0-0.2); Basophils Percent Auto 0.5 % (0-2); Eosinophils Absolute Auto 0.1 X10*3/uL (0.0-0.4); Eosinophils Percent Auto 1.2 % (0-4); Hematocrit 42.2 % (42-52); Hemoglobin 14.1 g/dl (14.0-18.0); Imm Gran Abs Auto 0.03 X10*3/uL (0.00-0.03); Imm Gran Pct Auto 0.3 % (0.0-0.4); Lymphocytes Absolute Auto 2.2 X10*3/uL (1.2-4.9); Lymphocytes Percent Auto 21.2 % (20-40); Mean Corpuscular HGB Conc 33.4 g/dl (31.0-36.0); Mean Corpuscular Hemoglobin 32.6 pg (27.0-33.0); Mean Corpuscular Volume 97.5 fL (80-98); Mean Platelet Volume 9.9 fL (9.4-12.4); Monocytes Absolute Auto 0.6 X10*3/uL (0.1-1.2); Monocytes Percent Auto 5.7 % (2-11); Neutrophils Absolute Auto 7.4 X10*3/uL (2.0-8.3); Neutrophils Percent Auto 71.1 % (45-73); Platelet Count 313 X10*3/uL (160-400); Red Blood Count 4.33 X10*6/uL (4.60-5.80); White Blood Count 10.5 X10*3/uL (4.8-10.8)
[2020-11-08 20:49] LABS: INTERNATIONAL NORM RATIO 0.9 (0.9-1.1); Prothrombin Time 10.3 SEC (10.8-13.0)
[2020-11-08 21:13] LABS: Troponin-I High Sensitivity < 3.5 ng/L (<3.5-35.0)
[2020-11-08] MEDS: iohexoL 350 MG/ML 100 ML INFUS..BTL IV (21:38)
[2020-11-08 21:39] LABS: Alanine Aminotransferase 21 U/L (0-40); Albumin Level 3.8 g/dL (3.5-5.0); Alkaline Phosphatase 110 U/L (39-117); Anion Gap 13 (12-20); Aspartate Amino Transferase 22 U/L (5-37); Bilirubin Direct 0.3 mg/dL (0.0-0.5); Bilirubin Total 0.9 mg/dL (0.0-1.0); Blood Urea Nitrogen 32 mg/dL (9-16); Calcium 8.7 mg/dL (8.4-10.2); Carbon Dioxide 24 mmol/L (22-29); Chloride 109 mmol/L (96-108); Creatinine Clr Calc Pharmacy 73.8; Estimated Glomerular Filt Rate 59; Glucose Random 138 mg/dL (60-115); Magnesium 2.2 mg/dL (1.6-2.6); Potassium 5.1 mmol/l (3.3-5.1); Sodium 141 mmol/L (135-145); Total Protein 6.8 g/dL (6.5-8.0)
[2020-11-09 00:14] LABS: Glucose Urine UA NEG (NEG); Leukocyte Esterase Urine NEG (NEG); Nitrite Urine NEG (NEG); PH 6.5 (5.0-8.0); Specific Gravity - Urine <= 1.005 (1.005-1.025); Urine Blood NEG (NEG); Urine Ketones NEG (NEG); Urine Protein TRACE MG/DL (NEG-TRACE)
[2020-11-09 00:17] LABS: Appearance Urine CLEAR; Color Urine YELLOW
[2020-11-09 00:20] LABS: COVID-19 Test Negative (Negative)
[2020-11-09 01:44] VITALS: BP 121/51; PULSE 72; RESP 16; TEMP 36.4; O2SAT 96
[2020-11-09 02:12] LABS: Troponin-I High Sensitivity < 3.5 ng/L (<3.5-35.0)
== END 2020-11-09 03:43 | disposition home or self-care (01) ==
PROVIDERS: Nurse Practitioner Family; Emergency Provider Emergency Medicine Emergency Medical Services
DX: R55 Syncope and collapse (principal); I95.1 Orthostatic hypotension; Z20.822 Contact with and (suspected) exposure to COVID-19; I10 Essential (primary) hypertension; Z85.46 Personal history of malignant neoplasm of prostate; Z79.899 Other long term (current) drug therapy
CPT/HCPCS: 36415; 70470; 71045; 71275; 74174; 80048; 80076; 81003; 83735; 84484; 85025; 85610; 87635; 93005; 96360; 99284; 99285; Q9967

== ENCOUNTER → 2020-11-25 09:54 | Outpatient (BNVA) | payer MEDICARE, SELFPAY | PROVIDERS: Visit Provider Urology | DX: C61 Malignant neoplasm of prostate (principal); C79.51 Secondary malignant neoplasm of bone; C67.1 Malignant neoplasm of dome of bladder; M85.80 Other specified disorders of bone density and structure, unspecified site | CPT/HCPCS: 96402; 99212; J9217 ==

== ENCOUNTER 2020-12-13 07:05 | Day surgery (SDC) | payer MEDICARE, SELFPAY ==
--- NOTE | 2020-11-08 13:27 | HO.ANESPROP2 ---
HPI - Anesthesia Eval Consult details Narrative: 70yo M for TUR Bladder Tumor with Cystoscopy s/p TURBT with GA-LMA4 07/2020 Surgery cx'd 11/09/20 d/t pt in ED with orthostatic hypotn. Recommend f/u with PCP [facility] Past Medical History Medical History Bladder tumor Elevated cholesterol Hematuria HTN (hypertension) Prostate CA Surgical History Surgical History H/O prostate biopsy Social History Social History Alcohol intake: never Smoking Status: Never smoker Smoked in Last 30 Days: No Second Hand Smoke Exposure: No Use of substances other than those prescribed or required for medical reasons: No Advance Directives: No Advance Directives Information Provided: No Meds Allergies Allergy/AdvReac Type Severity Reaction Status Date / Time No Known Allergies Allergy Unverified 07/01/20 15:38 [No Known Allergies*] acetaminophen [Percocet] AdvReac Unknown face got Verified 04/15/20 00:00 really red oxycodone [Percocet] AdvReac Unknown face got Verified 04/15/20 00:00 really red Home Medications Medication Instructions Recorded Confirmed Type atorvastatin 1 tab PO DAILY 07/19/20 10/28/20 History lisinopril 1 tab PO DAILY 07/19/20 10/28/20 History tamsulosin 1 cap PO BID 07/19/20 10/28/20 History Exam Exam Date and Time: November 08, 2020 1327 Pertinent Lab Results Pertinent Lab Results: Laboratory Tests 06/03/20 06/03/20 20:21 20:21 WBC 9.0 Hgb 13.2 L Hct 40.3 L Plt Count 305 Sodium 140 Potassium 4.8 Chloride 106 BUN 38 H Creatinine 1.39 Assessment and Plan Assessment Anesthesia Assessment: Chart Reviewed
[2020-11-08 16:04] VITALS: BMI 21.7
[2020-12-07 12:58] VITALS: BMI 29.1
--- NOTE | 2020-12-10 12:27 | HO.ANESPROP2 ---
Documented by User: Sasha Henry 12/10/20 12:41 HPI - Anesthesia Eval Consult details Narrative: 70yo M for TUR Bladder Tumor with Cystoscopy s/p TURBT with GA-[id number] 07/2020 Surgery cx'd 11/09/20 d/t pt in ED with orthostatic hypotn. Recommend f/u with PCP - T/C to pcp confirms that PMFSH Active Problems Active Problems: All Active Problems (Updated 12/07/20 @ 12:53 by Indigo Morrison) Bladder cancer (Acute) Prostate cancer metastatic to bone (Acute) Osteopenia due to cancer therapy (Acute) Prostate CA (Acute) Past Medical History Medical History Bladder tumor Bone cancer Elevated cholesterol Hematuria HTN (hypertension) Prostate CA Surgical History Surgical History H/O prostate biopsy History of cystoscopy Social History Social History Are you a primary career services assistant to a significant other at home: No Do you presently have visiting nurse or other home services: No Alcohol intake: never Smoking Status: Never smoker Second Hand Smoke Exposure: No Use of substances other than those prescribed or required for medical reasons: No Have you been hit, kicked, punched, or otherwise hurt by someone within the past year? If so, by whom?: No Advance Directives: No Advance Directives Information Provided: No Advance Directives on File: No Recently lost weight without trying: No Meds Allergies Allergy/AdvReac Type Severity Reaction Status Date / Time oxycodone [Percocet] AdvReac Intermediate face got Verified 12/13/20 07:30 really red Home Medications Medication Instructions Recorded Confirmed Last Taken Type atorvastatin 1 tab PO DAILY 07/19/20 12/07/20 Unknown History lisinopril 1 tab PO DAILY 07/19/20 12/07/20 Unknown History tamsulosin 1 cap PO BID 07/19/20 12/07/20 Unknown History aspirin [Aspir-81] 81 mg PO DAILY 12/07/20 12/07/20 12/04/20 19:00 History cholecalciferol (vitamin D3) 1 cap PO DAILY 12/07/20 12/07/20 Unknown History Exam Exam Date and Time: December 10, 2020 1227 Height,Weight and Vital Signs: Height 6 ft Weight 97.522 kg Pertinent Lab Results Pertinent Lab Results: Laboratory Tests 11/08/20 11/08/20 20:28 21:05 WBC 10.5 Hgb 14.1 Hct 42.2 Plt Count 313 Sodium 141 Potassium 5.1 Chloride 109 H Carbon Dioxide 24 BUN 32 H Creatinine 1.22 Narrative Narrative: EKG 10/2020 Normal sinus rhythm Pulmonary disease pattern Left anterior fascicular block Prolonged QT Abnormal ECG When compared to the previous EKG of No significant changes seen Documented by User: Yaz Galdamez 12/13/20 08:06 PMFSH Past Medical History Medical History Bladder tumor Bone cancer Elevated cholesterol Hematuria HTN (hypertension) Prostate CA Surgical History Surgical History H/O prostate biopsy History of cystoscopy Social History Social History Are you a primary career services assistant to a significant other at home: No Do you presently have visiting nurse or other home services: No Alcohol intake: never Smoking Status: Never smoker Second Hand Smoke Exposure: No Use of substances other than those prescribed or required for medical reasons: No Have you been hit, kicked, punched, or otherwise hurt by someone within the past year? If so, by whom?: No Advance Directives: No Advance Directives Information Provided: No Advance Directives on File: No Recently lost weight without trying: No Meds Allergies Allergy/AdvReac Type Severity Reaction Status Date / Time oxycodone [Percocet] AdvReac Intermediate face got Verified 12/13/20 07:30 really red Home Medications Medication Instructions Recorded Confirmed Last Taken Type atorvastatin 1 tab PO DAILY 07/19/20 12/07/20 Unknown History lisinopril 1 tab PO DAILY 07/19/20 12/07/20 Unknown History tamsulosin 1 cap PO BID 07/19/20 12/07/20 Unknown History aspirin [Aspir-81] 81 mg PO DAILY 12/07/20 12/07/20 12/04/20 19:00 History cholecalciferol (vitamin D3) 1 cap PO DAILY 12/07/20 12/07/20 Unknown History Exam Airway Mallampati Class: II Neck ROM: Full Loose/Missing/Broken Teeth: No Heart: RRR Lungs: CTA Assessment and Plan Assessment Anesthesia Assessment: Anesthesia Plan Discussed and Chart Reviewed Final Anesthetic Review NPO: Yes ASA Class: III Final Preanesthetic Review: Meds/Allgs Chart Reviewed, Consent Obtained/Reviewed and Anes Risks/Benef Reviewed Patient Risk: Intermediate Procedure Risk: Low Anesthetic Plan Anesthetic Plan: GA Disposition: Standard PACU
[2020-12-13] VITALS (9 sets, daily range): BP systolic 135–162; BP diastolic 74–97; PULSE 58–77; RESP 14–20; TEMP 36.1–36.5; O2SAT 95–97
[2020-12-13] MEDS: levoFLOXacin 500 MG TABLET PO (08:01)
--- NOTE | 2020-12-13 08:35 | MHC.SHP ---
Pre-Procedural Eval Section A The patient is an INPATIENT: No Changes since office visit: No Cold of Flu in the past 2 weeks, No New Medical Problems, No Changes in Medication and No Patient answered all questions The History & Physical has been completed within 30 days and I have reviewed it.: Yes Section B Chief Complaint: malignant neoplasm Allergies: Allergies Allergy/AdvReac Type Severity Reaction Status Date / Time oxycodone [Percocet] AdvReac Intermediate face got Verified 12/13/20 07:30 really red Plan I have reviewed the history and physical and performed a pertinent physical examination on my patient. No changes have occurred unless specified. Cystoscopy, transurethral resection of bladder tumor
--- NOTE | 2020-12-13 09:23 | PM.OP ---
Brief Operative Note Date of Service: 12/13/20 Pre-op diagnosis: Bladder cancer Post-op diagnosis: same Procedure: TURBT medium with multiple small tumors Surgeon: Dom Maier MD Anesthesia: GLMA Estimated blood loss (mL): 0 Pathology: other ( bladder tumors) Condition: stable Disposition: same day
--- NOTE | 2020-12-13 09:26 | W.PM.OPN ---
Operative Note Operative Note Date of Service: 12/13/20 Narrative: PreOperative Diagnosis: bladder cancer recurrence Post Operative Diagnosis: multiple recurrent bladder cancer lesions Procedure: transurethral resection of bladder tumor. Medium plus multiple satellite lesions Surgeon: Dr Dom Maier Anesthesia: general Indications for procedure: this is a 70-year-old male. prior history of bladder cancer with resection. Also prostate cancer with radiation and metastatic to bone. At surveillance cystoscopy had multiple lesions within the bladder including a 2 cm lesion at the anterior dome. Recommendation for TURBT. Would also benefit from postprocedure intravesical therapy. Procedure: After informed consent was verified the patient was brought to the operating room and placed in a supine position. anesthesia was administered per protocol. the patient was placed in a modified dorsal lithotomy position and prepped and draped in sterile fashion. A safety pause was performed. Antibiotics have been given. A 22 Tristanian cystoscope inserted per urethra. Multiple small less than 5 mm lesions with seen within the dome of the bladder. There was a 2 cm lesion on the anterior bladder wall which was difficult to access. Using a resectoscope we were able to remove the 2 cm lesion on the anterior bladder wall. We were able to fulgurate other recurrent lesions. For separate lesions were fulgurated. We removed the resectoscope and placed a regular cystoscope with the Bugbee. The Bugbee was used to then cauterize the anterior bladder wall lesion which was difficult to reach with the resectoscope. Once this had been completed we switched to a 70 degree lens and re-examined the bladder. There was areas of mucosal change that was seen particularly around the dome and this was fulgurated. At the completion the procedure specimens were taken and will be sent for pathology. A belladonna and opiate suppository was used for. Procedure pain management. He tolerated procedure well was extubated in operating room transferred in stable condition to recovery area. Pathology: Bladder lesions Drains: none
== END 2020-12-13 11:38 | disposition home or self-care (01) ==
PROVIDERS: PCP Family Medicine; Visit Provider Urology
PROC: 0TBB8ZZ Excision of Bladder, Via Natural or Artificial Opening Endoscopic (ICD-10-PCS; CPT 52234; principal; 2020-12-13 08:50)
DX: C67.3 Malignant neoplasm of anterior wall of bladder (principal); C61 Malignant neoplasm of prostate; C79.51 Secondary malignant neoplasm of bone; Z92.3 Personal history of irradiation; Z85.51 Personal history of malignant neoplasm of bladder; Z79.82 Long term (current) use of aspirin; Z79.899 Other long term (current) drug therapy
CPT/HCPCS: 52234; 88307; J1100; J1580; J2405; J3010

== ENCOUNTER → 2021-01-05 09:26 | Outpatient (BNVA) | payer MEDICARE, SELFPAY | PROVIDERS: PCP Family Medicine; Visit Provider Urology | DX: C61 Malignant neoplasm of prostate (principal); C79.51 Secondary malignant neoplasm of bone; C67.1 Malignant neoplasm of dome of bladder; M85.80 Other specified disorders of bone density and structure, unspecified site | CPT/HCPCS: 81002; 99212 ==

== ENCOUNTER 2021-02-21 09:02 | Outpatient (REF) | payer MEDICARE, SELFPAY ==
[2021-02-21 09:31] LABS: Glucose Urine UA NEG (NEG); Leukocyte Esterase Urine NEG (NEG); Nitrite Urine NEG (NEG); Specific Gravity - Urine 1.025 (1.005-1.025); Urine Blood NEG (NEG); Urine Ketones NEG (NEG); Urine Protein NEG (NEG-TRACE)
[2021-02-21 09:34] LABS: Appearance Urine CLEAR; Color Urine YELLOW
[2021-02-21 09:56] LABS: RBC Urine 0 /HPF (0); WBC Urine 0 /HPF (0-4)
[2021-02-21 10:57] LABS: Blood Urea Nitrogen 28 mg/dL (9-16); Estimated Glomerular Filt Rate 53
[2021-02-21 11:22] LABS: Prostate Specific Antigen 0.23 ng/mL (<0.05-4.0)
== END 2021-02-21 09:03 | disposition home or self-care (01) ==
LOC: HO.LAB 09:02
PROVIDERS: PCP Family Medicine; Visit Provider Urology
DX: Z12.5 Encounter for screening for malignant neoplasm of prostate (principal); N26.1 Atrophy of kidney (terminal); C67.9 Malignant neoplasm of bladder, unspecified; N40.1 Benign prostatic hyperplasia with lower urinary tract symptoms; N13.8 Other obstructive and reflux uropathy; C61 Malignant neoplasm of prostate
CPT/HCPCS: 36415; 81001; 82565; 84153; 84520

== ENCOUNTER → 2021-03-02 12:01 | Outpatient (REF) | payer MEDICARE, SELFPAY ==
--- NOTE | ~2021-03-02 | MM_ITS ---
EXAMINATION: BONE DENSITOMETRY CLINICAL INDICATION: Malignant neoplasm of prostate. COMPARISON: None (current study represents initial baseline exam). TECHNIQUE: Using a [employer] DXA System (software version: 13.1) manufactured by [employer], dual-energy x-ray absorptiometry was performed of the lumbar spine and left hip. The images are of good technical quality. Summary results are attached. FINDINGS: AP SPINE L1-L4: BMD 1.431 g/cm2, Z-score 1.6, T-score 1.8, normal. LEFT FEMUR, NECK: BMD 0.810 g/cm2, Z-score -1.3, T-score -2.0, osteopenia. LEFT FEMUR, TOTAL: BMD 0.934 g/cm2, Z-score -0.9, T-score -1.2, osteopenia. IDENTIFIED RISK FACTORS: None listed. HISTORY OF FRACTURE: None listed. MEDICATIONS: Vitamin D. MM/XR DEXA axial skeleton IMPRESSION: 1. DIAGNOSIS: Osteopenia based on the lowest T-score value of -2.0 in the femoral neck applying World Health Organization criteria. 2. 10-YEAR FRACTURE RISK PREDICTION, FRAX: Major osteoporotic fracture (clinical spine, forearm, hip or shoulder) 7.3%. Hip fracture 1.7%. 3. Treatment Recommendations: NOF guidelines recommend consideration for treatment in postmenopausal women and men age 50 and older presenting with the following: -A hip or vertebral (clinical or morphometric) fracture. -T-score less than or equal to -2.5 at the femoral neck or spine after appropriate evaluation to exclude secondary causes. -Low bone mass at the hip or spine and a 10-year fracture probability by FRAX of greater than or equal to 3% for hip fracture or greater than or equal to 20% for major osteoporotic fracture based on the [place] adapted WHO algorithm. 4. Other Recommendations: All treatment decisions require clinical judgment and consideration of individual patient factors, including patient preferences, comorbidities, previous drug use, risk factors not captured in the FRAX model (e.g. frailty, falls, vitamin D deficiency, increased bone turnover, interval significant decline in bone density) and possible under or overestimation of fracture risk by FRAX. Additional medical evaluation for secondary cause of low bone mineral density may be appropriate. FUTURE SCAN RECOMMENDATION: People with diagnosed cases of osteoporosis or at high risk for fracture should have regular bone mineral density tests. For patients eligible for Medicare, routine testing is allowed once every 2 years. The testing frequency can be increased to one year for patients who have rapidly progressing disease, those who are receiving or discontinuing medical therapy to restore bone mass, or have additional risk factors.
== END ==
LOC: HO.NUCMED 12:01
PROVIDERS: PCP Family Medicine; Visit Provider Urology
DX: Z13.820 Encounter for screening for osteoporosis (principal); M85.80 Other specified disorders of bone density and structure, unspecified site; C61 Malignant neoplasm of prostate; C79.51 Secondary malignant neoplasm of bone; Z79.899 Other long term (current) drug therapy
CPT/HCPCS: 77080

== ENCOUNTER 2021-03-02 12:16 | Outpatient (REF) | payer MEDICARE, SELFPAY | END 2021-03-02 12:17 | disposition home or self-care (01) | LOC: HO.MAMMO 12:16 | PROVIDERS: PCP Family Medicine; Visit Provider Urology | DX: Z13.89 Encounter for screening for other disorder (principal) ==

== ENCOUNTER → 2021-03-07 09:54 | Outpatient (REF) | payer MEDICARE, SELFPAY ==
--- NOTE | ~2021-03-07 | NM_ITS ---
EXAMINATION: NM BONE SCAN OF THE WHOLE BODY CLINICAL INFORMATION: Malignant neoplasm of prostate. Bladder tumor, secondary malignant neoplasm of bone. COMPARISON: The previous bone scan dated 10/17/2019 is available for comparison. Radiographs of the chest dated 11/08/2020 and of the lumbar spine dated 06/03/2020 are available for comparison. CT angiogram of the chest dated 11/08/2020 is also available for comparison. TECHNIQUE: Multiple gamma scintillation camera images of the whole body were performed 3 hours following the intravenous administration of 37 mCi Tc-99m MDP. FINDINGS: In the head, no significant abnormalities are present. In the thoracic cage and upper extremities, there is minimally increased activity in the acromioclavicular and sternoclavicular joints bilaterally and in a faint subacromial focus in the lateral aspect of the right humeral head. In the spine, a mild thoracolumbar scoliosis with lumbar convexity to the right is noted. There is minimally increased activity in the left side of L5 for. In the pelvis, there is minimally increased activity in the superior lip of the right acetabulum. There is also faintly increased activity in a focus in the posterior right iliac bone adjacent to the sacroiliac joint. In the lower extremities, mildly increased activity is present in a small focus in the medial compartment of the right knee. There is a mild diffuse increase in activity in the anterolateral cortices of the proximal two thirds of both tibias, probably due to a diffuse periostitis and possibly exercise related. There is a small focus of mildly increased activity present in the proximal left foot. No other definite bony abnormalities are noted. The urinary bladder and faint visualization of both kidneys are noted. Compared to the previous scan dated 10/17/2019, a variously present mild left sixth rib lesion is no longer present. A faint posterior right ninth rib lesion has also resolved. Abnormality in the posterior right iliac bone is significantly less intense on the current study. The diffuse activity in the anterolateral cortices of the tibias on the current study is a new finding. The remainder the scan is unchanged. NM/ND bone scan whole body IMPRESSION: 1. Resolving metastatic tumor involvement of bone. A very mild abnormality in the posterior right iliac bone is noted, significantly improved from the prior study and consistent with a healing metastasis. No other abnormalities suspicious for metastases are now present. 2. A few additional mild nonspecific abnormalities are noted as described above and these are all likely arthritic or traumatic in etiology. None of these abnormalities is strongly suspicious for metastatic disease.
== END ==
LOC: HO.NUCMED 09:54
PROVIDERS: Visit Provider Urology
DX: C61 Malignant neoplasm of prostate (principal); C79.51 Secondary malignant neoplasm of bone
CPT/HCPCS: 78306; A9503

== ENCOUNTER → 2021-03-08 11:23 | Outpatient (BNVA) | payer MEDICARE, SELFPAY | PROVIDERS: Visit Provider Urology | DX: N39.0 Urinary tract infection, site not specified (principal); C67.1 Malignant neoplasm of dome of bladder; C61 Malignant neoplasm of prostate; C79.51 Secondary malignant neoplasm of bone | CPT/HCPCS: 99212 ==

== ENCOUNTER → 2021-04-12 12:50 | Outpatient (BNVA) | payer MEDICARE, SELFPAY | PROVIDERS: PCP Family Medicine; Visit Provider Urology | DX: C67.1 Malignant neoplasm of dome of bladder (principal); C61 Malignant neoplasm of prostate; C79.51 Secondary malignant neoplasm of bone | CPT/HCPCS: 52000; 99212 ==

== ENCOUNTER 2021-05-14 01:21 | Emergency (ER) | payer MEDICARE, SELFPAY ==
--- NOTE | ~2021-05-14 | XR_ITS ---
EXAMINATION: XR CHEST CLINICAL INFORMATION: Cough COMPARISON: 11/08/2020 TECHNIQUE: Frontal view of the chest was obtained. XR/XR chest 1V FINDINGS/IMPRESSION: Low lung volumes and left basilar subsegmental atelectasis. No discrete consolidation. No pleural effusion or pneumothorax. Normal heart size and pulmonary vascularity. No acute or suspicious osseous abnormalities.
--- NOTE | ~2021-05-14 | CT_ITS ---
EXAMINATION: CT HEAD WITHOUT CONTRAST CLINICAL INFORMATION: Headache. COMPARISON: 11/08/2020 TECHNIQUE: Contiguous axial imaging was performed from the skull base to vertex without intravenous administration of contrast. This CT examination was performed using dose optimization techniques as appropriate, variously including the following: *Automated exposure control *Adjustment of mA and/or kV according to patient size (this includes techniques or standardized protocols for targeted exams where dose is matched to indication/reason for exam; i.e. extremities or head) *Use of iterative reconstruction technique DLP: 936 mGy-cm FINDINGS: There is no evidence of acute intracranial hemorrhage or territorial infarction. No abnormal mass effect or midline shift is seen. Cade to white matter differentiation is well preserved. No extra-axial fluid collections are identified. The ventricles are normal in size. Patchy and confluent subcortical and periventricular white matter low-attenuation changes redemonstrated. The osseous structures and soft tissues are normal. The mastoid air cells and visualized portions of the paranasal sinuses are well aerated. CT/CT head/brain wo con IMPRESSION: No acute intracranial pathology. Severe chronic white matter small vessel ischemic changes
--- NOTE | ~2021-05-14 | CT_ITS ---
EXAMINATION: CT ABDOMEN AND PELVIS WITHOUT CONTRAST CLINICAL INFORMATION: Abdominal pain. Diarrhea. COMPARISON: 11/08/2020 TECHNIQUE: Multidetector volumetric imaging was performed from the superior aspect of the liver through the pubic symphysis. Sagittal and coronal reformatted images were obtained on the technologist's workstation. This CT examination was performed using dose optimization techniques as appropriate, variously including the following: *Automated exposure control *Adjustment of mA and/or kV according to patient size (this includes techniques or standardized protocols for targeted exams where dose is matched to indication/reason for exam; i.e. extremities or head) *Use of iterative reconstruction technique DLP: 1485 mGy-cm FINDINGS: LUNG BASES: The visualized lung bases are unremarkable. LIVER, GALLBLADDER, AND BILIARY TREE: The liver is normal in size, shape, and attenuation. No focal hepatic lesion or biliary ductal dilatation is present. Gallbladder unremarkable. PANCREAS: Unremarkable. SPLEEN: Unremarkable. ADRENAL GLANDS: Unremarkable. KIDNEYS AND URETERS: The kidneys are normal in size, shape, and attenuation. No hydronephrosis, hydroureter, or calculi seen. No perinephric stranding. BLADDER: Unremarkable. GASTROINTESTINAL TRACT: Scattered colonic diverticula, most concentrated within the sigmoid colon. No evidence of diverticulitis. Normal appendix. ABDOMINAL WALL: No significant hernia is appreciated. LYMPH NODES: Normal. VASCULAR: Unremarkable. PELVIC VISCERA: Unremarkable. OSSEOUS STRUCTURES: No acute or suspicious osseous abnormalities. CT/CT abdomen pelvis wo con IMPRESSION: No acute findings within the abdomen or pelvis. Sigmoid colonic diverticulosis without evidence of diverticulitis.
[2021-05-14 01:28] VITALS: BP 171/69; PULSE 86; PULSE 92; RESP 18; TEMP 37; O2SAT 97; O2SAT 98; BMI 28.5
--- NOTE | 2021-05-14 01:32 | ECG_ITS ---
Test Reason : FALL Blood Pressure : / mmHG Vent. Rate : 085 BPM Atrial Rate : 394 BPM P-R Int : 000 ms QRS Dur : 102 ms QT Int : 394 ms P-R-T Axes : 006 -77 017 degrees QTc Int : 468 ms Artifact in tracing Normal sinus rhythm Left anterior fascicular block Abnormal ECG When compared with ECG of 08-NOV-2020 19:53, No significant changes seen Referred By: Yaz Pandey Electronically Signed By:CALIN MARTINEZ
[2021-05-14 01:39] LABS: Glucose, Whole Blood 154 mg/dL (60-115)
--- NOTE | 2021-05-14 02:01 | ED.FALL ---
HPI - Fall General Chief Complaint: Fall <Yaz Pandey MD - Last Filed: 05/14/21 07:05> Stated Complaint: PLASCENCIA S/P FALL FROM SITTING <Yaz Pandey MD - Last Filed: 05/14/21 07:05> Time Seen by Provider: 05/14/21 01:22 <Yaz Pandey MD - Last Filed: 05/14/21 07:05> Source: patient <Yaz Pandey MD - Last Filed: 05/14/21 07:05> Mode of arrival: EMS <Yaz Pandey MD - Last Filed: 05/14/21 07:05> History of Present Illness HPI Narrative: This is a 70-year-old male with history of metastatic prostate cancer, baseline weakness and can only ambulate with assistance as well as a cane at baseline and states that this evening he got out of the shower and had a bad headache so thought that he would lie down for a little while to see if it resolved, but then felt like he had to have a bowel movement and when he got up to go to the bathroom he was unable to make it and fell. He states he did hit his head, but he had the headache prior and denies any loss of consciousness. Patient is not on any blood thinners. <Yaz Pandey MD - Last Filed: 05/14/21 07:05> Related Data Home Medications: Home Medications Medication Instructions Recorded Confirmed atorvastatin 40 mg tablet 1 tab PO BEDTIME 07/19/20 05/14/21 lisinopril 10 mg tablet 1 tab PO DAILY 07/19/20 05/14/21 aspirin 81 mg tablet,delayed 81 mg PO DAILY 12/07/20 05/14/21 release cholecalciferol (vitamin D3) 50 1 cap PO DAILY 12/07/20 05/14/21 mcg (2,000 unit) capsule riboflavin (vitamin B2) 100 mg 200 mg PO QAM 01/05/21 05/14/21 tablet amlodipine 2.5 mg tablet 5 mg PO DAILY 04/12/21 05/14/21 enzalutamide 40 mg capsule (Xtandi) 80 mg PO BID 05/14/21 05/14/21 magnesium 200 mg tablet 400 mg PO BID 05/14/21 05/14/21 <Yaz Pandey MD - Last Filed: 05/14/21 07:05> Allergies/Adverse Reactions: Allergies Allergy/AdvReac Type Severity Reaction Status Date / Time oxycodone [Percocet] AdvReac Intermediate face got Verified 04/12/21 12:56 really red <Yaz Pandey MD - Last Filed: 05/14/21 07:05> Review of Systems Review of Systems: Pertinent positives and negatives as stated in HPI and 10 point review of systems is otherwise negative. <Yaz Pandey MD - Last Filed: 05/14/21 07:05> PMFSH Past Medical History Source: nursing notes reviewed <Yaz Pandey MD - Last Filed: 05/14/21 07:05> Medical History: Medical History Bladder tumor Bone cancer Elevated cholesterol Hematuria HTN (hypertension) Prostate CA <Yaz Pandey MD - Last Filed: 05/14/21 07:05> Surgical History: Surgical History H/O prostate biopsy History of cystoscopy <Yaz Pandey MD - Last Filed: 05/14/21 07:05> Social History Social History: Social History Are you a primary health care marketing manager to a significant other at home: No Do you presently have visiting nurse or other home services: No Alcohol intake: never Second Hand Smoke Exposure: No Advance Directives: No Advance Directives Information Provided: No <Yaz Pandey MD - Last Filed: 05/14/21 07:05> Physical Exam Vital Signs: Vital Signs: Last Vital Signs Temp 98.3 F 05/14/21 11:35 Pulse 79 05/14/21 11:35 Resp 17 05/14/21 11:35 BP 138/91 H 05/14/21 11:35 Pulse Ox 95 05/14/21 11:35 Body Mass Index 28.5 VITAL SIGNS: Reviewed. GENERAL: Well developed, well nourished, in no acute distress. HEAD: Normocephalic/atraumatic EYES: PERRLA, EOMI EARS: Ext canals without abnormality OROPHARYNX: no oral lesions noted, posterior pharynx clear, mildly dry mucosa NECK: Supple, no adenopathy LUNGS: Normal breath sounds. No adventitious sounds or accessory muscle use. SpO2<98> CARDIOVASCULAR: Regular rate and rhythm without noted murmurs, no JVD or lower extremity edema. ABDOMEN: Soft, non-tender, non-distended with bowel sounds. MUSCULOSKELETAL: No tenderness, deformities, or effusions noted on gross inspection, but obvious muscle wasting EXTREMITIES: No cyanosis, clubbing or edema. SKIN: Inspection of the skin reveals no rashes NEUROLOGIC: Alert and oriented x 4. Strength significantly limited and sensation to light touch were grossly intact x 4, tremulous, left hand is noted to slightly drift and unable to supinate for pronator evaluation <Yaz Pandey MD - Last Filed: 05/14/21 07:05> Vital Signs: Last Vital Signs Temp 98.3 F 05/14/21 11:35 Pulse 79 05/14/21 11:35 Resp 17 05/14/21 11:35 BP 138/91 H 05/14/21 11:35 Pulse Ox 95 05/14/21 11:35 Body Mass Index 28.5 <Kanu Lan MD - Last Filed: 05/14/21 14:59> Course Course Course Narrative: 70-year-old male with history and clinical presentation of metastatic prostate cancer concerning for possible intracranial spread given patient's loss of bowel movement combine with headache and concerns regarding pronator evaluation. Will assess with CT of the head, provide Tylenol, and obtain basic labs. Review of all investigations shows a mild leukocytosis with left shift, however chest x-ray and urine are negative for acute findings. Review of CT of the head and neurological findings are without acute abnormalities and patient's noted deficits are baseline. On re-evaluation patient still complains of headache without visual changes, IV fluids were provided given that there was a noted mild VINCENZO and suspect mild dehydration as a contributing factor. CT scan to ensure no evidence of colitis. Signed out to Dr. Lan <Yaz Pandey MD - Last Filed: 05/14/21 07:05> Reevaluation(s) Reevaluation #1: this is an addendum THIS DOCUMENT IS DR PANDEY i AM WRITING AN ADDENDUM. HE FAILED PHYSICAL THERAPY,[facility] WAS CONSULTED AND PT WILL BE TRANSFER TO HALF-WAY <Kanu Lan MD - Last Filed: 05/14/21 14:59> MDM - Fall Lab Data Result diagrams: : 05/14/21 03:05 05/14/21 03:05 <Yaz Pandey MD - Last Filed: 05/14/21 07:05> Labs: Lab Results 05/14/21 05/14/21 05/14/21 Range/Units 01:33 03:05 03:05 WBC 12.2 H (4.8-10.8) X10*3/uL RBC 4.37 L (4.60-5.80) X10*6/uL Hgb 14.3 (14.0-18.0) g/dl Hct 42.2 (42-52) % MCV 96.6 (80-98) fL MCH 32.7 (27.0-33.0) pg MCHC 33.9 (31.0-36.0) g/dl RDW 13.0 (11.0-16.0) % Plt Count 297 (160-400) X10*3/uL MPV 9.8 (9.4-12.4) fL Immature Gran % (Auto) 0.3 (0.0-0.4) % Neut % (Auto) 77.3 H (45-73) % Lymph % (Auto) 15.8 L (20-40) % [place] % (Auto) 5.8 (2-11) % Eos % (Auto) 0.5 (0-4) % Baso % (Auto) 0.3 (0-2) % Lymph # (Auto) 1.9 (1.2-4.9) X10*3/uL [place] # (Auto) 0.7 (0.1-1.2) X10*3/uL Eos # (Auto) 0.1 (0.0-0.4) X10*3/uL Baso # (Auto) 0.0 (0.0-0.2) X10*3/uL Abs Immat Gran (auto) 0.04 H (0.00-0.03) X10*3/uL Absolute Neuts (auto) 9.4 H (2.0-8.3) X10*3/uL Absolute Nucleated RBC 0.000 (0.0-0.012) X10*3/uL Nucleated RBC % (auto) 0.0 (0.0-0.2) /100WBC PT 11.2 (9.9-13.0) SEC INR 1.0 (0.9-1.1) Sodium (135-145) mmol/L Potassium (3.3-5.1) mmol/L Chloride (96-108) mmol/L Carbon Dioxide (22-29) mmol/L Anion Gap (12-20) BUN (9-16) mg/dL Creatinine (0.5-1.4) mg/dL Estim Creat Clear Calc Estimated GFR POC Glucose 154 H (60-115) mg/dL Random Glucose (60-115) mg/dL Calcium (8.4-10.2) mg/dL Total Bilirubin (0.0-1.0) mg/dL AST (5-37) U/L ALT (0-40) U/L Alkaline Phosphatase (39-117) U/L B-Natriuretic Peptide (<100) pg/mL Total Protein (6.5-8.0) g/dL Albumin (3.5-5.0) g/dL Urine Color Urine Appearance Urine pH (5.0-8.0) Ur Specific [place] (1.005-1.025) Urine Protein (NEG-TRACE) MG/DL Urine Glucose (UA) (NEG) MG/DL Urine Ketones (NEG) MG/DL Urine Blood (NEG) Urine Nitrite (NEG) Ur Leukocyte Esterase (NEG) Urine RBC (0) /HPF Urine WBC (0-4) /HPF Ur Squamous Epith Cells /LPF Urine Bacteria /LPF Urine Mucus /LPF COVID-19 ([facility]) (Negative) COVID-19 Clin Com 05/14/21 05/14/21 05/14/21 Range/Units 03:05 03:05 03:05 WBC (4.8-10.8) X10*3/uL RBC (4.60-5.80) X10*6/uL Hgb (14.0-18.0) g/dl Hct (42-52) % MCV (80-98) fL MCH (27.0-33.0) pg MCHC (31.0-36.0) g/dl RDW (11.0-16.0) % Plt Count (160-400) X10*3/uL MPV (9.4-12.4) fL Immature Gran % (Auto) (0.0-0.4) % Neut % (Auto) (45-73) % Lymph % (Auto) (20-40) % [place] % (Auto) (2-11) % Eos % (Auto) (0-4) % Baso % (Auto) (0-2) % Lymph # (Auto) (1.2-4.9) X10*3/uL [place] # (Auto) (0.1-1.2) X10*3/uL Eos # (Auto) (0.0-0.4) X10*3/uL Baso # (Auto) (0.0-0.2) X10*3/uL Abs Immat Gran (auto) (0.00-0.03) X10*3/uL Absolute Neuts (auto) (2.0-8.3) X10*3/uL Absolute Nucleated RBC (0.0-0.012) X10*3/uL Nucleated RBC % (auto) (0.0-0.2) /100WBC PT (9.9-13.0) SEC INR (0.9-1.1) Sodium 139 (135-145) mmol/L Potassium 4.6 (3.3-5.1) mmol/L Chloride 104 (96-108) mmol/L Carbon Dioxide 25 (22-29) mmol/L Anion Gap 15 (12-20) BUN 32 H (9-16) mg/dL Creatinine 1.50 H (0.5-1.4) mg/dL Estim Creat Clear Calc 56.4 Estimated GFR 47 POC Glucose (60-115) mg/dL Random Glucose 148 H (60-115) mg/dL Calcium 9.9 D (8.4-10.2) mg/dL Total Bilirubin 1.1 H (0.0-1.0) mg/dL AST 20 (5-37) U/L ALT 18 (0-40) U/L Alkaline Phosphatase 116 (39-117) U/L B-Natriuretic Peptide < 10 (<100) pg/mL Total Protein 7.1 (6.5-8.0) g/dL Albumin 3.9 (3.5-5.0) g/dL Urine Color DARK YELLOW Urine Appearance CLEAR Urine pH 6.0 (5.0-8.0) Ur Specific [place] >= 1.030 H (1.005-1.025) Urine Protein NEG (NEG-TRACE) MG/DL Urine Glucose (UA) NEG (NEG) MG/DL Urine Ketones NEG (NEG) MG/DL Urine Blood TRACE (NEG) Urine Nitrite NEG (NEG) Ur Leukocyte Esterase NEG (NEG) Urine RBC 0-2 (0) /HPF Urine WBC 0-2 (0-4) /HPF Ur Squamous Epith Cells TRACE /LPF Urine Bacteria NONE /LPF Urine Mucus 4+ /LPF COVID-19 ([facility]) (Negative) COVID-19 Clin Com 05/14/21 Range/Units 12:22 WBC (4.8-10.8) X10*3/uL RBC (4.60-5.80) X10*6/uL Hgb (14.0-18.0) g/dl Hct (42-52) % MCV (80-98) fL MCH (27.0-33.0) pg MCHC (31.0-36.0) g/dl RDW (11.0-16.0) % Plt Count (160-400) X10*3/uL MPV (9.4-12.4) fL Immature Gran % (Auto) (0.0-0.4) % Neut % (Auto) (45-73) % Lymph % (Auto) (20-40) % [place] % (Auto) (2-11) % Eos % (Auto) (0-4) % Baso % (Auto) (0-2) % Lymph # (Auto) (1.2-4.9) X10*3/uL [place] # (Auto) (0.1-1.2) X10*3/uL Eos # (Auto) (0.0-0.4) X10*3/uL Baso # (Auto) (0.0-0.2) X10*3/uL Abs Immat Gran (auto) (0.00-0.03) X10*3/uL Absolute Neuts (auto) (2.0-8.3) X10*3/uL Absolute Nucleated RBC (0.0-0.012) X10*3/uL Nucleated RBC % (auto) (0.0-0.2) /100WBC PT (9.9-13.0) SEC INR (0.9-1.1) Sodium (135-145) mmol/L Potassium (3.3-5.1) mmol/L Chloride (96-108) mmol/L Carbon Dioxide (22-29) mmol/L Anion Gap (12-20) BUN (9-16) mg/dL Creatinine (0.5-1.4) mg/dL Estim Creat Clear Calc Estimated GFR POC Glucose (60-115) mg/dL Random Glucose (60-115) mg/dL Calcium (8.4-10.2) mg/dL Total Bilirubin (0.0-1.0) mg/dL AST (5-37) U/L ALT (0-40) U/L Alkaline Phosphatase (39-117) U/L B-Natriuretic Peptide (<100) pg/mL Total Protein (6.5-8.0) g/dL Albumin (3.5-5.0) g/dL Urine Color Urine Appearance Urine pH (5.0-8.0) Ur Specific [place] (1.005-1.025) Urine Protein (NEG-TRACE) MG/DL Urine Glucose (UA) (NEG) MG/DL Urine Ketones (NEG) MG/DL Urine Blood (NEG) Urine Nitrite (NEG) Ur Leukocyte Esterase (NEG) Urine RBC (0) /HPF Urine WBC (0-4) /HPF Ur Squamous Epith Cells /LPF Urine Bacteria /LPF Urine Mucus /LPF COVID-19 ([facility]) Negative (Negative) COVID-19 Clin Com See Note <Yaz Pandey MD - Last Filed: 05/14/21 07:05> Lab Results 05/14/21 05/14/21 05/14/21 Range/Units 01:33 03:05 03:05 WBC 12.2 H (4.8-10.8) X10*3/uL RBC 4.37 L (4.60-5.80) X10*6/uL Hgb 14.3 (14.0-18.0) g/dl Hct 42.2 (42-52) % MCV 96.6 (80-98) fL MCH 32.7 (27.0-33.0) pg MCHC 33.9 (31.0-36.0) g/dl RDW 13.0 (11.0-16.0) % Plt Count 297 (160-400) X10*3/uL MPV 9.8 (9.4-12.4) fL Immature Gran % (Auto) 0.3 (0.0-0.4) % Neut % (Auto) 77.3 H (45-73) % Lymph % (Auto) 15.8 L (20-40) % [place] % (Auto) 5.8 (2-11) % Eos % (Auto) 0.5 (0-4) % Baso % (Auto) 0.3 (0-2) % Lymph # (Auto) 1.9 (1.2-4.9) X10*3/uL [place] # (Auto) 0.7 (0.1-1.2) X10*3/uL Eos # (Auto) 0.1 (0.0-0.4) X10*3/uL Baso # (Auto) 0.0 (0.0-0.2) X10*3/uL Abs Immat Gran (auto) 0.04 H (0.00-0.03) X10*3/uL Absolute Neuts (auto) 9.4 H (2.0-8.3) X10*3/uL Absolute Nucleated RBC 0.000 (0.0-0.012) X10*3/uL Nucleated RBC % (auto) 0.0 (0.0-0.2) /100WBC PT 11.2 (9.9-13.0) SEC INR 1.0 (0.9-1.1) Sodium (135-145) mmol/L Potassium (3.3-5.1) mmol/L Chloride (96-108) mmol/L Carbon Dioxide (22-29) mmol/L Anion Gap (12-20) BUN (9-16) mg/dL Creatinine (0.5-1.4) mg/dL Estim Creat Clear Calc Estimated GFR POC Glucose 154 H (60-115) mg/dL Random Glucose (60-115) mg/dL Calcium (8.4-10.2) mg/dL Total Bilirubin (0.0-1.0) mg/dL AST (5-37) U/L ALT (0-40) U/L Alkaline Phosphatase (39-117) U/L B-Natriuretic Peptide (<100) pg/mL Total Protein (6.5-8.0) g/dL Albumin (3.5-5.0) g/dL Urine Color Urine Appearance Urine pH (5.0-8.0) Ur Specific [place] (1.005-1.025) Urine Protein (NEG-TRACE) MG/DL Urine Glucose (UA) (NEG) MG/DL Urine Ketones (NEG) MG/DL Urine Blood (NEG) Urine Nitrite (NEG) Ur Leukocyte Esterase (NEG) Urine RBC (0) /HPF Urine WBC (0-4) /HPF Ur Squamous Epith Cells /LPF Urine Bacteria /LPF Urine Mucus /LPF COVID-19 ([facility]) (Negative) COVID-19 Clin Com 05/14/21 05/14/21 05/14/21 Range/Units 03:05 03:05 03:05 WBC (4.8-10.8) X10*3/uL RBC (4.60-5.80) X10*6/uL Hgb (14.0-18.0) g/dl Hct (42-52) % MCV (80-98) fL MCH (27.0-33.0) pg MCHC (31.0-36.0) g/dl RDW (11.0-16.0) % Plt Count (160-400) X10*3/uL MPV (9.4-12.4) fL Immature Gran % (Auto) (0.0-0.4) % Neut % (Auto) (45-73) % Lymph % (Auto) (20-40) % [place] % (Auto) (2-11) % Eos % (Auto) (0-4) % Baso % (Auto) (0-2) % Lymph # (Auto) (1.2-4.9) X10*3/uL [place] # (Auto) (0.1-1.2) X10*3/uL Eos # (Auto) (0.0-0.4) X10*3/uL Baso # (Auto) (0.0-0.2) X10*3/uL Abs Immat Gran (auto) (0.00-0.03) X10*3/uL Absolute Neuts (auto) (2.0-8.3) X10*3/uL Absolute Nucleated RBC (0.0-0.012) X10*3/uL Nucleated RBC % (auto) (0.0-0.2) /100WBC PT (9.9-13.0) SEC INR (0.9-1.1) Sodium 139 (135-145) mmol/L Potassium 4.6 (3.3-5.1) mmol/L Chloride 104 (96-108) mmol/L Carbon Dioxide 25 (22-29) mmol/L Anion Gap 15 (12-20) BUN 32 H (9-16) mg/dL Creatinine 1.50 H (0.5-1.4) mg/dL Estim Creat Clear Calc 56.4 Estimated GFR 47 POC Glucose (60-115) mg/dL Random Glucose 148 H (60-115) mg/dL Calcium 9.9 D (8.4-10.2) mg/dL Total Bilirubin 1.1 H (0.0-1.0) mg/dL AST 20 (5-37) U/L ALT 18 (0-40) U/L Alkaline Phosphatase 116 (39-117) U/L B-Natriuretic Peptide < 10 (<100) pg/mL Total Protein 7.1 (6.5-8.0) g/dL Albumin 3.9 (3.5-5.0) g/dL Urine Color DARK YELLOW Urine Appearance CLEAR Urine pH 6.0 (5.0-8.0) Ur Specific [place] >= 1.030 H (1.005-1.025) Urine Protein NEG (NEG-TRACE) MG/DL Urine Glucose (UA) NEG (NEG) MG/DL Urine Ketones NEG (NEG) MG/DL Urine Blood TRACE (NEG) Urine Nitrite NEG (NEG) Ur Leukocyte Esterase NEG (NEG) Urine RBC 0-2 (0) /HPF Urine WBC 0-2 (0-4) /HPF Ur Squamous Epith Cells TRACE /LPF Urine Bacteria NONE /LPF Urine Mucus 4+ /LPF COVID-19 ([facility]) (Negative) COVID-19 Clin Com 05/14/21 Range/Units 12:22 WBC (4.8-10.8) X10*3/uL RBC (4.60-5.80) X10*6/uL Hgb (14.0-18.0) g/dl Hct (42-52) % MCV (80-98) fL MCH (27.0-33.0) pg MCHC (31.0-36.0) g/dl RDW (11.0-16.0) % Plt Count (160-400) X10*3/uL MPV (9.4-12.4) fL Immature Gran % (Auto) (0.0-0.4) % Neut % (Auto) (45-73) % Lymph % (Auto) (20-40) % [place] % (Auto) (2-11) % Eos % (Auto) (0-4) % Baso % (Auto) (0-2) % Lymph # (Auto) (1.2-4.9) X10*3/uL [place] # (Auto) (0.1-1.2) X10*3/uL Eos # (Auto) (0.0-0.4) X10*3/uL Baso # (Auto) (0.0-0.2) X10*3/uL Abs Immat Gran (auto) (0.00-0.03) X10*3/uL Absolute Neuts (auto) (2.0-8.3) X10*3/uL Absolute Nucleated RBC (0.0-0.012) X10*3/uL Nucleated RBC % (auto) (0.0-0.2) /100WBC PT (9.9-13.0) SEC INR (0.9-1.1) Sodium (135-145) mmol/L Potassium (3.3-5.1) mmol/L Chloride (96-108) mmol/L Carbon Dioxide (22-29) mmol/L Anion Gap (12-20) BUN (9-16) mg/dL Creatinine (0.5-1.4) mg/dL Estim Creat Clear Calc Estimated GFR POC Glucose (60-115) mg/dL Random Glucose (60-115) mg/dL Calcium (8.4-10.2) mg/dL Total Bilirubin (0.0-1.0) mg/dL AST (5-37) U/L ALT (0-40) U/L Alkaline Phosphatase (39-117) U/L B-Natriuretic Peptide (<100) pg/mL Total Protein (6.5-8.0) g/dL Albumin (3.5-5.0) g/dL Urine Color Urine Appearance Urine pH (5.0-8.0) Ur Specific [place] (1.005-1.025) Urine Protein (NEG-TRACE) MG/DL Urine Glucose (UA) (NEG) MG/DL Urine Ketones (NEG) MG/DL Urine Blood (NEG) Urine Nitrite (NEG) Ur Leukocyte Esterase (NEG) Urine RBC (0) /HPF Urine WBC (0-4) /HPF Ur Squamous Epith Cells /LPF Urine Bacteria /LPF Urine Mucus /LPF COVID-19 ([facility]) Negative (Negative) COVID-19 Clin Com See Note <Kanu Lan MD - Last Filed: 05/14/21 14:59> ECG Data Attestation: I personally reviewed and interpreted this ECG as follows: <Yaz Pandey MD - Last Filed: 05/14/21 07:05> Prior ECG tracings: available for review (11/08/2020 no acute changes on comparison) <Yaz Pandey MD - Last Filed: 05/14/21 07:05> Interpretation: This is normal sinus rhythm, HR-85, no STEMI, QTC within normal limits. <Yaz Pandey MD - Last Filed: 05/14/21 07:05> Discharge Plan Discharge Clinical Impression: Headache, Fall <Yaz Pandey MD - Last Filed: 05/14/21 07:05> Patient Disposition: Home, Self-Care <Yaz Pandey MD - Last Filed: 05/14/21 07:05> Instructions: Fall Prevention for Older Adults (ED), General Headache (ED) <Yaz Pandey MD - Last Filed: 05/14/21 07:05> Additional Instructions: 1. Resume all home medications as prescribed. 2. Increase fluid hydration especially with water. 3. Please follow-up with your primary care provider as well as your urologist for re-evaluation. Return to the ER for acute worsening of symptoms. <Yaz Pandey MD - Last Filed: 05/14/21 07:05> Prescriptions: No [facility] cholecalciferol (vitamin D3) 50 mcg (2,000 unit) capsule 1 cap PO DAILY RF: 0 aspirin 81 mg Tablet,Delayed Release (Dr/Ec) 81 mg PO DAILY RF: 0 Xtandi 40 mg capsule 80 mg PO BID RF: 0 magnesium 200 mg Tablet 400 mg PO BID RF: 0 atorvastatin 40 mg tablet 1 tab PO BEDTIME RF: 0 lisinopril 10 mg tablet 1 tab PO DAILY RF: 0 <Yaz Pandey MD - Last Filed: 05/14/21 07:05> Referrals: Dom Maier MD [Physician] - 2 days <Yaz Pandey MD - Last Filed: 05/14/21 07:05>
[2021-05-14] MEDS: Acetaminophen 325 MG TABLET 975 MG PO (02:04)
[2021-05-14 03:08] VITALS: PULSE 77; RESP 16
[2021-05-14 03:10] LABS: MANUAL DIFF FLAG NO
[2021-05-14 03:13] LABS: Basophils Percent Auto 0.3 % (0-2); Eosinophils Absolute Auto 0.1 X10*3/uL (0.0-0.4); Eosinophils Percent Auto 0.5 % (0-4); Hematocrit 42.2 % (42-52); Hemoglobin 14.3 g/dl (14.0-18.0); Imm Gran Abs Auto 0.04 X10*3/uL (0.00-0.03); Imm Gran Pct Auto 0.3 % (0.0-0.4); Lymphocytes Absolute Auto 1.9 X10*3/uL (1.2-4.9); Lymphocytes Percent Auto 15.8 % (20-40); Mean Corpuscular HGB Conc 33.9 g/dl (31.0-36.0); Mean Corpuscular Hemoglobin 32.7 pg (27.0-33.0); Mean Corpuscular Volume 96.6 fL (80-98); Mean Platelet Volume 9.8 fL (9.4-12.4); Monocytes Absolute Auto 0.7 X10*3/uL (0.1-1.2); Monocytes Percent Auto 5.8 % (2-11); Neutrophils Absolute Auto 9.4 X10*3/uL (2.0-8.3); Neutrophils Percent Auto 77.3 % (45-73); Platelet Count 297 X10*3/uL (160-400); Red Blood Count 4.37 X10*6/uL (4.60-5.80); White Blood Count 12.2 X10*3/uL (4.8-10.8)
[2021-05-14 03:15] LABS: Glucose Urine UA NEG (NEG); Leukocyte Esterase Urine NEG (NEG); Nitrite Urine NEG (NEG); Specific Gravity - Urine >= 1.030 (1.005-1.025); UACC Culture Trigger NO; Urine Blood TRACE (NEG); Urine Ketones NEG (NEG); Urine Protein NEG (NEG-TRACE)
[2021-05-14 03:24] LABS: Prothrombin Time 11.2 SEC (9.9-13.0)
[2021-05-14 03:28] LABS: Appearance Urine CLEAR; Color Urine DARK YELLOW
[2021-05-14] MEDS: Ketorolac Tromethamine 15 MG/ML VIAL IVPUSH (03:33)
[2021-05-14 03:48] LABS: RBC Urine 0-2 /HPF (0); Squamous Epithelial Cell Urine TRACE /LPF; WBC Urine 0-2 /HPF (0-4)
[2021-05-14 03:49] LABS: Mucus Urine 4+ /LPF
[2021-05-14 03:50] LABS: Alanine Aminotransferase 18 U/L (0-40); Albumin Level 3.9 g/dL (3.5-5.0); Alkaline Phosphatase 116 U/L (39-117); Anion Gap 15 (12-20); Aspartate Amino Transferase 20 U/L (5-37); Bilirubin Total 1.1 mg/dL (0.0-1.0); Blood Urea Nitrogen 32 mg/dL (9-16); Calcium 9.9 mg/dL (8.4-10.2); Carbon Dioxide 25 mmol/L (22-29); Chloride 104 mmol/L (96-108); Creatinine Clr Calc Pharmacy 56.4; Estimated Glomerular Filt Rate 47; Glucose Random 148 mg/dL (60-115); Potassium 4.6 mmol/L (3.3-5.1); Sodium 139 mmol/L (135-145); Total Protein 7.1 g/dL (6.5-8.0)
[2021-05-14 04:40] LABS: B Type Natriuretic Peptide < 10 pg/mL (<100)
[2021-05-14 04:48] VITALS: PULSE 87; RESP 16
[2021-05-14] MEDS: 0.9 % Sodium Chloride 1,000 ML 999 ML IV (05:30)
[2021-05-14 06:58] VITALS: BP 143/74; PULSE 81; RESP 14; TEMP 36.4
[2021-05-14 07:25] VITALS: BP 125/59; PULSE 86; RESP 16; O2SAT 97
--- NOTE | 2021-05-14 07:26 | PC.NURSE ---
Pt alert/awake/oriented. Using urinal as needed. States 10/10 headache unchanged since arrival but reports headache feels similar to headaches in past, frontal. Denies nausea or light sensitivity. Skin pwd. Fluids continue to infuse. NSR on tele however artifact on tele d/t tremors. Awaiting CT scan results and dispo.
--- NOTE | 2021-05-14 08:05 | PC.NURSE ---
Spoke to pts Florencia with permission of pt contact [phone]
--- NOTE | 2021-05-14 09:01 | PC.NURSE ---
Plan for case management
--- NOTE | 2021-05-14 09:51 | PC.NURSE ---
Tech to bedside to assist in using commode, difficult to transfer needing assist of two, unable to have bowel movement
[2021-05-14 11:35] VITALS: BP 138/91; PULSE 79; RESP 17; TEMP 36.8; O2SAT 95
--- NOTE | 2021-05-14 12:19 | MHC.CM.PN ---
PT IN ED S/P FALL, PT RECENT;Y CMPLETED 6 WKS CHEM HERE AT [facility] [place], PT HAS BEEN WEEK AND NOT ABLE TO GET IN & OUT OF SHOWER ALONE, PT'S WAS CALLED W/PT PERMISSION AND SHE REPORTED INCREASE IN FALLS AT HOME AND PT BEING VERY WEEK, REPORTS PT IS ON XTANDI BID AND CM HAS ASKED HER TO BRING IN MEDICATION IN CASE IT IS REQUESTED BY SNF, PT DOES NOT HAVE ANOTHER APPT W/DR. [facility] UNTIL JUN/JUL 2012. 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 PT'S REQUESTING [facility], PT OK W/CHOICE AND HAS NO OTHER CHOICES AT THIS TIME. CM WILL CONT TO FOLLOW UNTIL PT'S D/C IS COMPLETE. D/C PLAN: [facility], [facility]
[2021-05-14 12:41] LABS: COVID-19 Test Negative (Negative)
--- NOTE | 2021-05-14 13:06 | MHC.CM.PN ---
CM CONTACTED PT'S CHRISTOPHER AT 1:01PM [phone] FOR ADDITIONAL SNF CHOICES DUE TO [facility] NOT CERTAIN THEY WILL HAVE A BED, REFERRAL PLACED TO [facility] PER REQUEST.
--- NOTE | 2021-05-14 14:53 | MHC.CM.PN ---
[facility] PT, PLAN IS FOR 0 TRANSFER, [facility] FOR [facility], CM CONTACTED PT'S PER REQUEST W/DETAILS OF SNF AND TIME REQUESTED, PT DOES OT HAVE A CELL PHONE TO CALL. D/C PLAN: [facility] FOR W/E AND STR FOR SUNDAY PER SNF, [facility] FOR [facility] TRANSPORT.
--- NOTE | 2021-05-14 16:31 | PC.NURSE ---
report given to Adi harper, expecting transport to facility shortly.
== END 2021-05-14 17:00 | disposition skilled nursing facility (03) ==
PROVIDERS: Student in an Organized Health Care Education/Training Program; Emergency Provider Emergency Medicine
DX: R51.9 Headache, unspecified (principal); I10 Essential (primary) hypertension; Z91.81 History of falling; Z85.46 Personal history of malignant neoplasm of prostate; Z85.830 Personal history of malignant neoplasm of bone; Z85.51 Personal history of malignant neoplasm of bladder; Z20.822 Contact with and (suspected) exposure to COVID-19
CPT/HCPCS: 36415; 70450; 71045; 74176; 80053; 81001; 82947; 83880; 85025; 85610; 87635; 93005; 96361; 96374; 96375; 97162; 99284; 99285; J1885; J2405

== ENCOUNTER 2021-05-20 06:48 | Outpatient (REF) | payer MEDICARE, SELFPAY ==
[2021-05-20 07:07] LABS: Hematocrit 37.7 % (42-52); Hemoglobin 12.3 g/dl (14.0-18.0); Mean Corpuscular HGB Conc 32.6 g/dl (31.0-36.0); Mean Corpuscular Hemoglobin 32.1 pg (27.0-33.0); Mean Corpuscular Volume 98.4 fL (80-98); Mean Platelet Volume 10.5 fL (9.4-12.4); Platelet Count 246 X10*3/uL (160-400); Red Blood Count 3.83 X10*6/uL (4.60-5.80); White Blood Count 6.7 X10*3/uL (4.8-10.8)
[2021-05-20 07:51] LABS: Alanine Aminotransferase 15 U/L (0-40); Albumin Level 3.4 g/dL (3.5-5.0); Alkaline Phosphatase 88 U/L (39-117); Anion Gap 16 (12-20); Aspartate Amino Transferase 21 U/L (5-37); Blood Urea Nitrogen 23 mg/dL (9-16); Carbon Dioxide 22 mmol/L (22-29); Chloride 106 mmol/L (96-108); Estimated Glomerular Filt Rate 48; Glucose Random 87 mg/dL (60-115); Potassium 4.7 mmol/L (3.3-5.1); Sodium 139 mmol/L (135-145); Total Protein 6.3 g/dL (6.5-8.0)
== END 2021-05-20 06:49 | disposition home or self-care (01) ==
LOC: HO.MMNH1L 06:48
PROVIDERS: Visit Provider Family Medicine
DX: C61 Malignant neoplasm of prostate (principal); I10 Essential (primary) hypertension; R31.9 Hematuria, unspecified
CPT/HCPCS: 36415; 80053; 85027

== ENCOUNTER 2021-05-23 05:00 | Outpatient (REF) | payer MEDICARE, SELFPAY ==
[2021-05-23 07:05] LABS: Hematocrit 37.4 % (42-52); Hemoglobin 12.2 g/dl (14.0-18.0); Mean Corpuscular HGB Conc 32.6 g/dl (31.0-36.0); Mean Corpuscular Hemoglobin 32.4 pg (27.0-33.0); Mean Corpuscular Volume 99.2 fL (80-98); Mean Platelet Volume 10.5 fL (9.4-12.4); Platelet Count 265 X10*3/uL (160-400); Red Blood Count 3.77 X10*6/uL (4.60-5.80); Red Cell Distribution Width 13.2 % (11.0-16.0); White Blood Count 6.6 X10*3/uL (4.8-10.8)
[2021-05-23 07:45] LABS: Alanine Aminotransferase 18 U/L (0-40); Albumin Level 3.5 g/dL (3.5-5.0); Alkaline Phosphatase 84 U/L (39-117); Anion Gap 14 (12-20); Aspartate Amino Transferase 19 U/L (5-37); Bilirubin Total 0.7 mg/dL (0.0-1.0); Blood Urea Nitrogen 23 mg/dL (9-16); Calcium 8.9 mg/dL (8.4-10.2); Carbon Dioxide 24 mmol/L (22-29); Chloride 105 mmol/L (96-108); Estimated Glomerular Filt Rate 54; Glucose Random 86 mg/dL (60-115); Sodium 138 mmol/L (135-145); Total Protein 6.2 g/dL (6.5-8.0)
== END 2021-05-23 05:01 | disposition home or self-care (01) ==
LOC: HO.MMNH1L 05:00
PROVIDERS: Visit Provider Family Medicine
DX: C61 Malignant neoplasm of prostate (principal); I10 Essential (primary) hypertension; R31.9 Hematuria, unspecified
CPT/HCPCS: 36415; 80053; 85027

== ENCOUNTER 2021-05-30 00:26 | Outpatient (REF) | payer MEDICARE, SELFPAY | END 2021-05-30 00:27 | disposition home or self-care (01) | LOC: HO.MMNH1L 00:26 | PROVIDERS: Visit Provider Family Medicine | DX: Z13.89 Encounter for screening for other disorder (principal) ==

== ENCOUNTER 2021-06-14 14:33 | Emergency (ER) | payer MEDICARE, SELFPAY ==
--- NOTE | ~2021-06-14 | CT_ITS ---
EXAMINATION: CT HEAD WITHOUT CONTRAST (STROKE PROTOCOL) CLINICAL INFORMATION: Stroke protocol. Unable to move lower extremities COMPARISON: Previous head CT scans most recent 05/14/2021 TECHNIQUE: Contiguous axial imaging was performed from the skull base to vertex without intravenous administration of contrast. This CT examination was performed using dose optimization techniques as appropriate, variously including the following: *Automated exposure control *Adjustment of mA and/or kV according to patient size (this includes techniques or standardized protocols for targeted exams where dose is matched to indication/reason for exam; i.e. extremities or head) *Use of iterative reconstruction technique DLP: 8 6 mGy-cm FINDINGS: There is no evidence of an extra-axial collection. There is no evidence of intra-axial or extra-axial hemorrhage. The ventricles and extra-axial CSF spaces are prominent for the patient's age suggestive of mild generalized atrophy. There is extensive periventricular white matter disease. This is similar to previous exam. No mass, mass effect or infarct is seen. Review of bone windows is normal. No skull fracture is seen. Visualized paranasal sinuses, mastoid air cells and middle ears are clear. CT/CT head for stroke IMPRESSION: No acute findings. Atrophy and extensive periventricular white matter disease. This critical result was discussed with Herlinda Hall at 1529 hours on 06/14/2021. It was ascertained that the content and urgency of the report was understood at the time of direct communication.
--- NOTE | ~2021-06-14 | CT_ITS ---
EXAMINATION: CT ANGIOGRAM HEAD CT ANGIOGRAM NECK CLINICAL INFORMATION: Unable to move lower extremities. COMPARISON: CT head from 06/14/2021. TECHNIQUE: Initial noncontrast legal assistant imaging of the head and neck was performed. Comparison is made with noncontrast head CT from earlier today. Test bolus sequences followed by intravenous administration 70 mL of Omnipaque 350. Helical imaging was performed in the axial plane from the aortic arch to the skull vertex. Delayed postcontrast imaging of the head was also performed. The data was processed at the rad technologist's workstation for generation of MIP sequences. Angled MIPs and volume rendered reformatted images were also generated at an offline 3D workstation. Stenoses are assessed in accordance with NASCET criteria unless otherwise indicated. This CT examination was performed using dose optimization techniques as appropriate, variously including the following: *Automated exposure control. *Adjustment of mA and/or kV according to patient size (this includes techniques or standardized protocols for targeted exams where dose is matched to indication/reason for exam; i.e. extremities or head). *Use of iterative reconstruction technique. DLP: 1648 mGy-cm FINDINGS: CT Head: There is no evidence of acute intracranial hemorrhage or edematous territorial infarction. Confluent hypoattenuation in the periventricular and deep white matter. Cade-white matter differentiation is preserved. Proportional prominence of the ventricles and sulcal spaces. No evidence for obstructive hydrocephalus. No abnormal mass effect or midline shift. No extra-axial fluid collections. No pathologic intra-axial enhancement or regional oligemia. No acute soft tissue or osseous abnormalities. Mild mucosal thickening of the paranasal sinuses. The mastoid air cells and middle ear cavities are clear. Mild to moderate degenerative arthropathy of the temporal mandibular joints. Periapical lucencies associated with the roots of the maxillary left-sided molars. CT Neck: The thyroid gland and remaining cervical soft tissues are within normal limits. Advanced degenerative disc disease at C3-C4, C4-C5, and C6-C7. Moderate degenerative disc disease at C2-C3 and C5-C6. Associated disc-osteophyte complex region. Facet and uncovertebral joint arthropathy leads to osseous encroachment on the neural foramina from C2-C6. CT Upper Chest: The visualized lung apices and upper mediastinum are within normal limits. Neck CTA: Aortic Arch: Normal contour and caliber with mild calcific a sclerotic disease. Classic 3 vessel branching pattern of the aortic arch. Great Vessel Origins: No significant stenosis of the branch origins. Right Common Carotid Artery: No focal stenosis or occlusion. Cervical Right Internal Carotid Artery: Normal opacification without focal stenosis or occlusion. Left Common Carotid Artery: No focal stenosis or occlusion. Cervical Left Internal Carotid Artery: Mild calcific atherosclerotic disease of the carotid bulb and proximal internal carotid artery without flow-limiting stenosis. Cervical Right Vertebral Artery: No focal stenosis or occlusion. Cervical Left Vertebral Artery: Dominant. No focal stenosis or occlusion. Brain CTA: Intracranial Internal Carotid Arteries: No focal stenosis or occlusion. Right Anterior Cerebral Artery: Normal A1 segment. Normal opacification of the distal DYLAN segments. Left Anterior Cerebral Artery: Normal A1 segment. Normal opacification of the distal DYLAN segments. Anterior Communicating Artery: Normal. Right Middle Cerebral Artery: Normal M1 segment of the MCA without focal stenosis or occlusion. Normal arborization of the distal segments. Left Middle Cerebral Artery: Normal M1 segment of the MCA without focal stenosis or occlusion. Normal arborization of the distal segments. Right Vertebral Artery: Normal V4 segment. Normal opacification of the proximal segments of the posterior inferior cerebellar artery. Left Vertebral Artery: Normal V4 segment. Normal opacification of the proximal segments of the posterior inferior cerebellar artery. Basilar Artery: Normal without focal stenosis or occlusion. Normal appearance of the proximal superior cerebellar arteries. Right Posterior Cerebral Artery: Normal P1 segment. Normal opacification of the distal AUDIO OPERATOR segments. Left Posterior Cerebral Artery: Normal P1 segment. Normal opacification of the distal AUDIO OPERATOR segments. Normal opacification of the superior sagittal, straight, transverse, and sigmoid sinuses. CT/CT angio head neck stroke IMPRESSION: 1. No evidence of acute intracranial hemorrhage or edematous territorial infarction. Extensive chronic white matter disease. Mild generalized cerebral volume loss. 2. CTA of the head and neck without proximal occlusion or flow-limiting stenosis. 3. Moderate multilevel degenerative spondyloarthropathy of the cervical spine. This critical result was discussed with Dr. Sweet at 15:50 on 06/14/2021 and it was ascertained that the content and urgency of the report was understood at the time of direct communication.
--- NOTE | 2021-06-14 14:50 | ECG_ITS ---
Test Reason : WEAKNESS Blood Pressure : / mmHG Vent. Rate : 084 BPM Atrial Rate : 084 BPM P-R Int : 160 ms QRS Dur : 104 ms QT Int : 380 ms P-R-T Axes : 051 -74 009 degrees QTc Int : 449 ms Normal sinus rhythm Left anterior fascicular block Abnormal ECG When compared with ECG of 14-MAY-2021 01:32, No significant change was found Referred By: Herlinda Hall Electronically Signed By:MARISA ACUÑA
[2021-06-14 14:52] VITALS: BP 134/102; BP 144/87; PULSE 88; PULSE 90; RESP 22; TEMP 36.7; O2SAT 94; O2SAT 95; BMI 31.1
--- NOTE | 2021-06-14 14:53 | ED_ITS ---
HPI - General Adult General Chief complaint: Weakness Stated complaint: weakness Time Seen by Provider: 06/14/21 14:37 Source: patient and EMS Mode of arrival: EMS Limitations: no limitations History of Present Illness HPI narrative: Patient comes via EMS from home. According to EMS, sometime this afternoon patient had acute onset of severe frontal headache, blurred vision, and lower extremity weakness. Patient states that his symptoms started approximately around 14:00. On arrival to the emergency room, patient states that he can barely move his lower extremities. Patient states that this is the 2nd time it happens to him, last time was approximately 5 years ago. Patient is on baby aspirin. Related Data Home Medications Medication Instructions Recorded Confirmed atorvastatin 40 mg tablet 1 tab PO BEDTIME 07/19/20 05/14/21 lisinopril 10 mg tablet 1 tab PO DAILY 07/19/20 05/14/21 aspirin 81 mg tablet,delayed 81 mg PO DAILY 12/07/20 05/14/21 release cholecalciferol (vitamin D3) 50 1 cap PO DAILY 12/07/20 05/14/21 mcg (2,000 unit) capsule riboflavin (vitamin B2) 100 mg 200 mg PO QAM 01/05/21 05/14/21 tablet amlodipine 2.5 mg tablet 5 mg PO DAILY 04/12/21 05/14/21 enzalutamide 40 mg capsule (Xtandi) 80 mg PO BID 05/14/21 05/14/21 magnesium 200 mg tablet 400 mg PO BID 05/14/21 05/14/21 Allergies Allergy/AdvReac Type Severity Reaction Status Date / Time oxycodone [Percocet] AdvReac Intermediate face got Verified 04/12/21 12:56 really red Review of Systems Review of Systems: Constitutional : No Weight loss, No Fever, No Chills, No Night Sweats, No Fatigue, No Malaise ENT/Mouth : No Hearing loss, No Ear Pain, No Nasal Congestion, No Sinus Pain, No Hoarseness, No sore throat, No Rhinorrhea, No Swallowing Difficulty Eyes: No Eye Pain, No Swelling, No Redness, No Foreign Body, No Discharge, complaining of blurry vision Cardiovascular : No Chest Pain, No SOB, No Dyspnea on Exertion, No Orthopnea, No Edema, No Palpitations Respiratory : No Cough, No Sputum, No Wheezing, No Smoke Exposure, No Dyspnea Gastrointestinal : No Nausea, No Vomiting, No Diarrhea, No Constipation, No abdominal Pain, No Hematochezia, No Melena Genitourinary : no irregular bleeding, No Dysuria, No Urinary Frequency, No Hematuria, No Urinary Incontinence, No Urgency, No Flank Pain, No Urinary Flow Changes, No Hesitancy Musculoskeletal : No joint pain, No Myalgias, No Joint Swelling, unable to lift both lower extremities from the stretcher Skin : No Skin Lesions, No rash, complaining of bilateral lower extremity weakness Neuro : Bilateral lower extremity weakness No Numbness, No Paresthesias, No Loss of Consciousness, No Dizziness, complaining of intense Headache Psych : No Anxiety/Panic, No Depression, No SI/HI/AH/VH, No Social Issues, Heme/Lymph: No Bruising, No Bleeding,No Lymphadenopathy Endocrine : No Polyuria, No Polydipsia, No Temperature Intolerance PMFSH Past Medical History Medical History Bladder tumor Bone cancer Elevated cholesterol Hematuria HTN (hypertension) Prostate CA Surgical History H/O prostate biopsy History of cystoscopy Social History Social History Are you a primary director of career resources to a significant other at home: No Do you presently have visiting nurse or other home services: No Alcohol intake: never Second Hand Smoke Exposure: No Advance Directives: No Advance Directives Information Provided: No Physical Exam Vital Signs: Vital Signs: Last Vital Signs Temp 98.1 F 06/14/21 17:33 Pulse 71 06/14/21 17:33 Resp 14 06/14/21 17:33 BP 141/67 H 06/14/21 17:33 Pulse Ox 95 06/14/21 17:33 Body Mass Index 31.1 Appearance: Alert. Oriented X3. No acute distress. Eyes: Pupils equal, round and reactive to light. ENT: Pharynx normal. Neck: Normal inspection. Neck supple. No lymph nodes noted. No crepitus CVS: Normal heart rate and rhythm. Pulses normal. Normal S1 and S2 Respiratory: No respiratory distress. Breath sounds normal. No Wheezing. No rales Abdomen: Soft and nontender. No rigidity. No distention. good BS x4 Skin: Skin warm and dry. Normal skin color. Normal skin turgor. Extremities: No lower extremity edema. No lower extremity edema. No Lacerations. No Rash Neuro: Oriented X 3. No motor deficit. , No sensory deficit. Difficulty moving bilateral lower extremities Const: Other: Appearance: Alert. Oriented X3. Very anxious Eyes: Pupils equal, round and reactive to light. ENT: Pharynx normal. Neck: Normal inspection. Neck supple. No lymph nodes noted. No crepitus CVS: Normal heart rate and rhythm. Pulses normal. Normal S1 and S2 Respiratory: No respiratory distress. Breath sounds normal. No Wheezing. No rales Abdomen: Soft and nontender. No rigidity. No distention. good BS x4 Skin: Skin warm and dry. Normal skin color. Normal skin turgor. Extremities: No lower extremity edema. Patient can lift both lower extremities approximately 2 in from the stretcher. Neuro: Oriented X 3. No slurred speech. NIH Stroke Scale Level of Consciousness: Alert Level of Consciousness Questions: Answers both questions correctly Level of Consciousness Commands: Performs both tasks correctly Best Gaze: Normal Visual: No visual loss Facial Palsy: Normal Motor Arm (Right): No drift Motor Arm (Left): No drift Motor Leg (Right): Some effort against gravity Motor Leg (Left): Some effort against gravity Limb Ataxia: Absent Sensory: Normal Best Language: No aphasia Dysarthia: Normal Extinction and Inattention: No abnormality Score: 4 Course Course Course Narrative: At this time, 16:00, patient states that his headache is nearly resolved after receiving 2 mg of morphine. Patient is now almost as ymptomatic, patient regained his full strength in the lower extremities Patient is able to ambulate with help of a cane as he usually does at baseline. Patient's symptoms likely secondary to a migraine headache Medical Decision Making Lab Data Result diagrams: 06/14/21 15:45 06/14/21 15:45 Labs: Lab Results 06/14/21 06/14/21 06/14/21 Range/Units 15:45 15:45 15:45 WBC 8.5 (4.8-10.8) X10*3/uL RBC 4.09 L (4.60-5.80) X10*6/uL Hgb 13.4 L (14.0-18.0) g/dl Hct 40.1 L (42-52) % MCV 98.0 (80-98) fL MCH 32.8 (27.0-33.0) pg MCHC 33.4 (31.0-36.0) g/dl RDW 13.1 (11.0-16.0) % Plt Count 268 (160-400) X10*3/uL MPV 10.1 (9.4-12.4) fL Immature Gran % (Auto) 0.6 H (0.0-0.4) % Neut % (Auto) 69.0 (45-73) % Lymph % (Auto) 21.3 (20-40) % Orange % (Auto) 7.3 (2-11) % Eos % (Auto) 1.4 (0-4) % Baso % (Auto) 0.4 (0-2) % Lymph # (Auto) 1.8 (1.2-4.9) X10*3/uL Orange # (Auto) 0.6 (0.1-1.2) X10*3/uL Eos # (Auto) 0.1 (0.0-0.4) X10*3/uL Baso # (Auto) 0.0 (0.0-0.2) X10*3/uL Abs Immat Gran (auto) 0.05 H (0.00-0.03) X10*3/uL Absolute Neuts (auto) 5.9 (2.0-8.3) X10*3/uL Absolute Nucleated RBC 0.000 (0.0-0.012) X10*3/uL Nucleated RBC % (auto) 0.0 (0.0-0.2) /100WBC Sodium 138 (135-145) mmol/L Potassium 4.6 (3.3-5.1) mmol/L Chloride 104 (96-108) mmol/L Carbon Dioxide 27 (22-29) mmol/L Anion Gap 12 (12-20) BUN 28 H (9-16) mg/dL Creatinine 1.24 (0.5-1.4) mg/dL Estim Creat Clear Calc 71.2 Estimated GFR 58 Random Glucose 103 (60-115) mg/dL Lactic Acid (0.5-2.0) mmol/L Calcium 9.4 (8.4-10.2) mg/dL Total Bilirubin 0.8 (0.0-1.0) mg/dL Direct Bilirubin 0.3 (0.0-0.5) mg/dL AST 17 (5-37) U/L ALT 15 (0-40) U/L Alkaline Phosphatase 111 D (39-117) U/L Troponin I High Sens (<3.5-35.0) ng/L Total Protein 6.8 (6.5-8.0) g/dL Albumin 3.6 (3.5-5.0) g/dL Urine Color Urine Appearance Urine pH (5.0-8.0) Ur Specific Ellsworth (1.005-1.025) Urine Protein (NEG-TRACE) MG/DL Urine Glucose (UA) (NEG) MG/DL Urine Ketones (NEG) MG/DL Urine Blood (NEG) Urine Nitrite (NEG) Ur Leukocyte Esterase (NEG) Urine RBC (0) /HPF Urine WBC (0-4) /HPF Ur Squamous Epith Cells /LPF Urine Bacteria /LPF 06/14/21 06/14/21 06/14/21 Range/Units 15:45 15:45 17:51 WBC (4.8-10.8) X10*3/uL RBC (4.60-5.80) X10*6/uL Hgb (14.0-18.0) g/dl Hct (42-52) % MCV (80-98) fL MCH (27.0-33.0) pg MCHC (31.0-36.0) g/dl RDW (11.0-16.0) % Plt Count (160-400) X10*3/uL MPV (9.4-12.4) fL Immature Gran % (Auto) (0.0-0.4) % Neut % (Auto) (45-73) % Lymph % (Auto) (20-40) % Orange % (Auto) (2-11) % Eos % (Auto) (0-4) % Baso % (Auto) (0-2) % Lymph # (Auto) (1.2-4.9) X10*3/uL Orange # (Auto) (0.1-1.2) X10*3/uL Eos # (Auto) (0.0-0.4) X10*3/uL Baso # (Auto) (0.0-0.2) X10*3/uL Abs Immat Gran (auto) (0.00-0.03) X10*3/uL Absolute Neuts (auto) (2.0-8.3) X10*3/uL Absolute Nucleated RBC (0.0-0.012) X10*3/uL Nucleated RBC % (auto) (0.0-0.2) /100WBC Sodium (135-145) mmol/L Potassium (3.3-5.1) mmol/L Chloride (96-108) mmol/L Carbon Dioxide (22-29) mmol/L Anion Gap (12-20) BUN (9-16) mg/dL Creatinine (0.5-1.4) mg/dL Estim Creat Clear Calc Estimated GFR Random Glucose (60-115) mg/dL Lactic Acid 1.4 (0.5-2.0) mmol/L Calcium (8.4-10.2) mg/dL Total Bilirubin (0.0-1.0) mg/dL Direct Bilirubin (0.0-0.5) mg/dL AST (5-37) U/L ALT (0-40) U/L Alkaline Phosphatase (39-117) U/L Troponin I High Sens < 3.5 (<3.5-35.0) ng/L Total Protein (6.5-8.0) g/dL Albumin (3.5-5.0) g/dL Urine Color YELLOW Urine Appearance CLEAR Urine pH 6.5 (5.0-8.0) Ur Specific Ellsworth <= 1.005 (1.005-1.025) Urine Protein NEG (NEG-TRACE) MG/DL Urine Glucose (UA) NEG (NEG) MG/DL Urine Ketones NEG (NEG) MG/DL Urine Blood TRACE (NEG) Urine Nitrite NEG (NEG) Ur Leukocyte Esterase NEG (NEG) Urine RBC 5-9 H (0) /HPF Urine WBC 0-2 (0-4) /HPF Ur Squamous Epith Cells NONE /LPF Urine Bacteria NONE /LPF Imaging Data Head CT: Radiologist's impression: FINDINGS: CT Head: There is no evidence of acute intracranial hemorrhage or edematous territorial infarction. Confluent hypoattenuation in the periventricular and deep white matter. Cade-white matter differentiation is preserved. Proportional prominence of the ventricles and sulcal spaces. No evidence for obstructive hydrocephalus. No abnormal mass effect or midline shift. No extra-axial fluid collections. No pathologic intra-axial enhancement or regional oligemia. No acute soft tissue or osseous abnormalities. Mild mucosal thickening of the paranasal sinuses. The mastoid air cells and middle ear cavities are clear. Mild to moderate degenerative arthropathy of the temporal mandibular joints. Periapical lucencies associated with the roots of the maxillary left-sided molars. CT Neck: The thyroid gland and remaining cervical soft tissues are within normal limits. Advanced degenerative disc disease at C3-C4, C4-C5, and C6-C7. Moderate degenerative disc disease at C2-C3 and C5-C6. Associated disc-osteophyte complex region. Facet and uncovertebral joint arthropathy leads to osseous encroachment on the neural foramina from C2-C6. CT Upper Chest: The visualized lung apices and upper mediastinum are within normal limits. Neck CTA: Aortic Arch: Normal contour and caliber with mild calcific a sclerotic disease. Classic 3 vessel branching pattern of the aortic arch. Great Vessel Origins: No significant stenosis of the branch origins. Right Common Carotid Artery: No focal stenosis or occlusion. Cervical Right Internal Carotid Artery: Normal opacification without focal stenosis or occlusion. Left Common Carotid Artery: No focal stenosis or occlusion. Cervical Left Internal Carotid Artery: Mild calcific atherosclerotic disease of the carotid bulb and proximal internal carotid artery without flow-limiting stenosis. Cervical Right Vertebral Artery: No focal stenosis or occlusion. Cervical Left Vertebral Artery: Dominant. No focal stenosis or occlusion. Brain CTA: Intracranial Internal Carotid Arteries: No focal stenosis or occlusion. Right Anterior Cerebral Artery: Normal A1 segment. Normal opacification of the distal DYLAN segments. Left Anterior Cerebral Artery: Normal A1 segment. Normal opacification of the distal DYLAN segments. Anterior Communicating Artery: Normal. Right Middle Cerebral Artery: Normal M1 segment of the MCA without focal stenosis or occlusion. Normal arborization of the distal segments. Left Middle Cerebral Artery: Normal M1 segment of the MCA without focal stenosis or occlusion. Normal arborization of the distal segments. Right Vertebral Artery: Normal V4 segment. Normal opacification of the proximal segments of the posterior inferior cerebellar artery. Left Vertebral Artery: Normal V4 segment. Normal opacification of the proximal segments of the posterior inferior cerebellar artery. Basilar Artery: Normal without focal stenosis or occlusion. Normal appearance of the proximal superior cerebellar arteries. Right Posterior Cerebral Artery: Normal P1 segment. Normal opacification of the distal CANVAS CUTTER MACHINE segments. Left Posterior Cerebral Artery: Normal P1 segment. Normal opacification of the distal CANVAS CUTTER MACHINE segments. Normal opacification of the superior sagittal, straight, transverse, and sigmoid sinuses. CT/CT angio head? neck stroke IMPRESSION: 1. No evidence of acute intracranial hemorrhage or edematous territorial infarction. Extensive chronic white matter disease. Mild generalized cerebral volume loss. ? 2. CTA of the head and neck without proximal occlusion or flow-limiting stenosis. ? 3. Moderate multilevel degenerative spondyloarthropathy of the cervical spine. ? Discharge Plan Discharge Clinical Impression: Leg weakness, bilateral Migraine Qualifiers: Migraine type: unspecified Intractability: not intractable Patient Disposition: Home, Self-Care Instructions: Acute Headache (ED) Additional Instructions: Please follow-up with your primary care physician tomorrow. If you have any worsening or new symptoms, please return to the emergency room or call 911 Prescriptions: No Action cholecalciferol (vitamin D3) 50 mcg (2,000 unit) capsule 1 cap PO DAILY RF: 0 aspirin 81 mg Tablet,Delayed Release (Dr/Ec) 81 mg PO DAILY RF: 0 Xtandi 40 mg capsule 80 mg PO BID RF: 0 magnesium 200 mg Tablet 400 mg PO BID RF: 0 atorvastatin 40 mg tablet 1 tab PO BEDTIME RF: 0 lisinopril 10 mg tablet 1 tab PO DAILY RF: 0
[2021-06-14 15:02] VITALS: BP 144/87; PULSE 86; RESP 28; TEMP 36.7; O2SAT 95
[2021-06-14] MEDS: iohexoL 350 MG/ML 100 ML INFUS..BTL IV (15:29)
[2021-06-14 15:49] VITALS: RESP 20
[2021-06-14] MEDS: 0.9 % Sodium Chloride 1,000 ML 999 ML IVCONT (15:49)
[2021-06-14] MEDS: Morphine Sulfate 2 MG/ML CARTRIDGE IVPUSH (15:49)
[2021-06-14 15:57] LABS: MANUAL DIFF FLAG NO
[2021-06-14 16:00] LABS: Basophils Percent Auto 0.4 % (0-2); Eosinophils Absolute Auto 0.1 X10*3/uL (0.0-0.4); Eosinophils Percent Auto 1.4 % (0-4); Hematocrit 40.1 % (42-52); Hemoglobin 13.4 g/dl (14.0-18.0); Imm Gran Abs Auto 0.05 X10*3/uL (0.00-0.03); Imm Gran Pct Auto 0.6 % (0.0-0.4); Lymphocytes Absolute Auto 1.8 X10*3/uL (1.2-4.9); Lymphocytes Percent Auto 21.3 % (20-40); Mean Corpuscular HGB Conc 33.4 g/dl (31.0-36.0); Mean Corpuscular Hemoglobin 32.8 pg (27.0-33.0); Mean Platelet Volume 10.1 fL (9.4-12.4); Monocytes Absolute Auto 0.6 X10*3/uL (0.1-1.2); Monocytes Percent Auto 7.3 % (2-11); Neutrophils Absolute Auto 5.9 X10*3/uL (2.0-8.3); Platelet Count 268 X10*3/uL (160-400); Red Blood Count 4.09 X10*6/uL (4.60-5.80); Red Cell Distribution Width 13.1 % (11.0-16.0); White Blood Count 8.5 X10*3/uL (4.8-10.8)
[2021-06-14 16:12] LABS: Lactic Acid 1.4 mmol/L (0.5-2.0)
[2021-06-14 16:16] LABS: Alanine Aminotransferase 15 U/L (0-40); Albumin Level 3.6 g/dL (3.5-5.0); Alkaline Phosphatase 111 U/L (39-117); Aspartate Amino Transferase 17 U/L (5-37); Bilirubin Direct 0.3 mg/dL (0.0-0.5); Bilirubin Total 0.8 mg/dL (0.0-1.0); Total Protein 6.8 g/dL (6.5-8.0)
[2021-06-14 16:23] LABS: Anion Gap 12 (12-20); Blood Urea Nitrogen 28 mg/dL (9-16); Calcium 9.4 mg/dL (8.4-10.2); Carbon Dioxide 27 mmol/L (22-29); Chloride 104 mmol/L (96-108); Creatinine Clr Calc Pharmacy 71.2; Estimated Glomerular Filt Rate 58; Glucose Random 103 mg/dL (60-115); Potassium 4.6 mmol/L (3.3-5.1); Sodium 138 mmol/L (135-145); Troponin-I High Sensitivity < 3.5 ng/L (<3.5-35.0)
[2021-06-14 17:33] VITALS: BP 141/67; PULSE 71; RESP 14; TEMP 36.7; O2SAT 95
[2021-06-14 18:09] LABS: Glucose Urine UA NEG (NEG); Leukocyte Esterase Urine NEG (NEG); Nitrite Urine NEG (NEG); PH 6.5 (5.0-8.0); Specific Gravity - Urine <= 1.005 (1.005-1.025); UACC Culture Trigger NO; Urine Blood TRACE (NEG); Urine Ketones NEG (NEG); Urine Protein NEG (NEG-TRACE)
[2021-06-14 18:11] LABS: Appearance Urine CLEAR; Color Urine YELLOW
[2021-06-14 18:26] LABS: WBC Urine 0-2 /HPF (0-4)
--- NOTE | 2021-06-14 19:28 | PC.NURSE ---
PT AMBULATED WITH RUIZ STEADY GAIT USING WALKER, STS NORMALLY USES A CANE AT HOME. PT REPORTS TOTAL RESOLUTION OF SX, STS FEELS WELL AND IS READY FOR D/C.
== END 2021-06-14 19:29 | disposition home or self-care (01) ==
PROVIDERS: Emergency Provider Emergency Medicine; PCP Family Medicine
DX: G43.909 Migraine, unspecified, not intractable, without status migrainosus (principal); R53.1 Weakness; I10 Essential (primary) hypertension; Z79.82 Long term (current) use of aspirin; Z79.899 Other long term (current) drug therapy; Z79.02 Long term (current) use of antithrombotics/antiplatelets; Z85.46 Personal history of malignant neoplasm of prostate; Z85.51 Personal history of malignant neoplasm of bladder
CPT/HCPCS: 36415; 70450; 70496; 70498; 80048; 80076; 81001; 83605; 84484; 85025; 87040; 93005; 96361; 96374; 99285; J2270; Q9967

== ENCOUNTER 2021-06-29 11:57 | Outpatient (REF) | payer MEDICARE, SELFPAY ==
[2021-06-29 13:51] LABS: Appearance Urine CLEAR; Color Urine YELLOW; Glucose Urine UA NEG (NEG); Leukocyte Esterase Urine NEG (NEG); Nitrite Urine NEG (NEG); Specific Gravity - Urine 1.025 (1.005-1.025); Urine Blood NEG (NEG); Urine Ketones NEG (NEG); Urine Protein NEG (NEG-TRACE)
[2021-06-29 14:14] LABS: RBC Urine 0 /HPF (0); Squamous Epithelial Cell Urine TRACE /LPF; WBC Urine 0 /HPF (0-4)
[2021-06-29 14:41] LABS: Prostate Specific Antigen 0.21 ng/mL (<0.05-4.0)
[2021-07-03 11:01] LABS: Testosterone, Total 9 ng/dL (250-1100)
== END 2021-06-29 11:58 | disposition home or self-care (01) ==
LOC: HO.LAB 11:57
PROVIDERS: Visit Provider Urology
DX: C61 Malignant neoplasm of prostate (principal); C67.9 Malignant neoplasm of bladder, unspecified
CPT/HCPCS: 36415; 81001; 84153; 84403

== ENCOUNTER 2021-07-10 14:07 | Observation (INO) | payer MEDICARE, SELFPAY ==
[2021-07-10] VITALS (8 sets, daily range): BP systolic 120–145; BP diastolic 51–80; PULSE 51–78; RESP 17–18; TEMP 36.4–36.6; O2SAT 96–99; BMI 28.5
--- NOTE | 2021-07-10 | ECG_ITS ---
Test Reason : GENERAL MEDICAL Blood Pressure : / mmHG Vent. Rate : 055 BPM Atrial Rate : 055 BPM P-R Int : 156 ms QRS Dur : 104 ms QT Int : 460 ms P-R-T Axes : -03 -57 -07 degrees QTc Int : 440 ms Sinus bradycardia Left anterior fascicular block Cannot rule out Anterior infarct , age undetermined Abnormal ECG When compared with ECG of 14-JUN-2021 15:02, Vent. rate has decreased BY 29 BPM Referred By: Generic ED Physician Electronically Signed By:MARISA ACUÑA
--- NOTE | ~2021-07-10 | CT_ITS ---
EXAMINATION: CT HEAD WITHOUT CONTRAST CLINICAL INFORMATION: Syncope versus seizure COMPARISON: Baseline 06/14/2021 TECHNIQUE: Contiguous axial imaging was performed from the skull base to vertex without intravenous administration of contrast. This CT examination was performed using dose optimization techniques as appropriate, variously including the following: *Automated exposure control *Adjustment of mA and/or kV according to patient size (this includes techniques or standardized protocols for targeted exams where dose is matched to indication/reason for exam; i.e. extremities or head) *Use of iterative reconstruction technique DLP: 289 mGy-cm FINDINGS: There is no evidence of acute intracranial hemorrhage or territorial infarction. No abnormal mass effect or midline shift is seen. [place]ade to white matter differentiation is well preserved. No extra-axial fluid collections are identified. The ventricles are normal in size. Symmetrical white matter changes most consistent with terminal supply white matter chronic lacunar ischemic/infarct involving the huerta radiata and centrum semiovale. The osseous structures and soft tissues are normal. The mastoid air cells and visualized portions of the paranasal sinuses are well aerated. CT/CT head/brain wo con IMPRESSION: No acute intracranial pathology.
--- NOTE | ~2021-07-10 | CT_ITS ---
EXAMINATION: CT CHEST WITHOUT CONTRAST CLINICAL INFORMATION: Suspected pneumonia. Syncope versus seizure. COMPARISON: CTA of the chest done on 11/08/2020. TECHNIQUE: Multidetector volumetric CT imaging of the chest was done. Axial MIP volume rendering provided. Sagittal and coronal reformatted images were obtained. This CT examination was performed using dose optimization techniques as appropriate, variously including the following: *Automated exposure control *Adjustment of mA and/or kV according to patient size (this includes techniques or standardized protocols for targeted exams where dose is matched to indication/reason for exam; i.e. extremities or head) *Use of iterative reconstruction technique DLP: 289.95 mGy-cm FINDINGS: HAND SOLE SEWER: Unremarkable. LUNGS: The lungs are clear with no evidence of inflammation or nodules. No significant change. Specifically, no evidence of any dense airspace consolidation is seen on either side. The tracheobronchial tree is patent. MEDIASTINUM: The mediastinum is normal. PLEURA: There is no pleural effusion. No pleural mass or thickening. AXILLA: No lymphadenopathy. UPPER ABDOMEN: Unremarkable. OSSEOUS STRUCTURES: No focal lesion. Marked diffuse osteopenia and increased midthoracic kyphosis. Multilevel degenerative spondylosis. CT/CT chest wo con IMPRESSION: No CT evidence of any dense airspace consolidation to suspect pneumonia. No significant change since prior CTA of the chest abdomen 11/08/2020.
--- NOTE | 2021-07-10 15:06 | ED_ITS ---
HPI - General Adult General Chief complaint: General Medical Stated complaint: SYNCOPAL EPISODE WHILE SITTING PER EMS Time Seen by Provider: 07/10/21 14:59 Source: patient Mode of arrival: ambulatory Limitations: no limitations History of Present Illness HPI narrative: Patient presents to ED for syncopal episode. Patient was on the couch talking to his a sister while watching television that he became unresponsive and had a bowel movement. patient was never blue and was breathing as per sister as per EMS. Patient syncopized as per EMS. Patient did not fall to the ground. Patient denies family and stating he was shaking. Patient states having a mild headache. Denies any chest pain, shortness of breath, nausea, vomiting, slurred speech and patient feeling normal [place] of extremities, or dizziness. Related Data Home Medications Medication Instructions Recorded Confirmed atorvastatin 40 mg tablet 1 tab PO BEDTIME 07/19/20 05/14/21 lisinopril 10 mg tablet 1 tab PO DAILY 07/19/20 05/14/21 aspirin 81 mg tablet,delayed 81 mg PO DAILY 12/07/20 05/14/21 release cholecalciferol (vitamin D3) 50 1 cap PO DAILY 12/07/20 05/14/21 mcg (2,000 unit) capsule riboflavin (vitamin B2) 100 mg 200 mg PO QAM 01/05/21 05/14/21 tablet amlodipine 2.5 mg tablet 5 mg PO DAILY 04/12/21 05/14/21 enzalutamide 40 mg capsule (Xtandi) 80 mg PO BID 05/14/21 05/14/21 magnesium 200 mg tablet 400 mg PO BID 05/14/21 05/14/21 Allergies Allergy/AdvReac Type Severity Reaction Status Date / Time oxycodone [Percocet] AdvReac Intermediate face got Verified 04/12/21 12:56 really red Review of Systems Review of Systems: Yes all other systems are reviewed and are negative Constitutional: Constitutional: Reports as per HPI, Reports no additional constitutional complaints and Reports headache(s) Eyes: Eyes: Reports as per HPI and Reports no additional eye complaints ENT: Reports system reviewed and no additional complaints, except as documented, Reports as per HPI and Reports headache(s) Cardiovascular: Cardiovascular: Reports as per HPI and Reports no additional cardiovascular complaints Respiratory: Respiratory: Reports as per HPI and Reports no additional respiratory complaints Gastrointestinal: Gastrointestinal: Reports as per HPI and Reports no additional gastrointestinal complaints Genitourinary: Genitourinary: Reports no additional male genitourinary complaints Musculoskeletal: Musculoskeletal: Reports no additional musculoskeletal complaints and Reports as per HPI Neurologic: Reports system reviewed and no additional complaints, except as documented, Reports as per HPI and Reports headache(s) Psychiatric: Psychiatric: Reports no additional psychiatric complaints and Reports as per HPI [facility] Past Medical History Medical History Bladder tumor Bone cancer Elevated cholesterol Hematuria HTN (hypertension) Prostate CA Surgical History H/O prostate biopsy History of cystoscopy Social History Social History Are you a primary child care coordinator to a significant other at home: No Do you presently have visiting nurse or other home services: No Alcohol intake: never Patient Tobacco Use Status: Never used Tobacco Second Hand Smoke Exposure: No Use of substances other than those prescribed or required for medical reasons: No Advance Directives: No Advance Directives Information Provided: No Physical Exam Vital Signs: Vital Signs: Last Vital Signs Temp 97.9 F 07/10/21 14:14 Pulse 54 07/10/21 16:39 Resp 18 07/10/21 16:39 BP 145/68 H 07/10/21 16:39 Pulse Ox 99 07/10/21 16:39 Body Mass Index 28.5 Const: General: cooperative, healthy appearing, comfortable, no acute dis tress, well developed, alert, awake and Physically active Orientation/consciousness: patient oriented x3 HENMT: Head: Yes normal to inspection, Yes No palpable skull fracture present, Yes normocephalic, Yes atraumatic and No abrasion Eyes: General: appearance normal, both eyes and all related structures Neck: Neck: Yes normal visual inspection, Yes full ROM, Yes no lymphadenopathy, Yes no meningeal signs, Yes trachea midline, Yes supple and No tender Chest: Chest palpation & inspection: normal inspection of the chest and normal palpation of entire chest wall Resp: Effort & Inspection: normal respiratory effort and able to speak in complete sentences Auscultation: clear to auscultation bilaterally Cardio: Jugular venous distension: no JVD Heart sounds: S1 normal heart sound present and S2 normal heart sound present GI: Inspection: Yes normal to inspection and No abdominal wall ecchymosis Palpation (GI): Soft to palpation, not firm, nontender, no guarding and not rigid : General: No CVA tenderness and Yes no CVA tenderness Back/Spine/Pelvis: Back: no CVA tenderness, No CVA tenderness and No back tenderness Skin: General skin exam: no rashes or lesions noted and elasticity normal Neuro: Other: Negative slurred speech. negative facial droop. negative pronator drift. All extremities equal strength and 5+. Finger to nose and rapid hand movement intact. General: patient oriented x3, no meningeal signs and CN's II-XI intact bilaterally Cranial nerves: Yes CN's II-XII intact bilaterally Extrem: General: Yes normal to inspection and Yes full ROM Psych: Appearance: grossly normal, well kempt and not disheveled Course Course Course Narrative: History physical exam and the seizure versus syncope. Patient have medical evaluation. EKG ordered. Reevaluation(s) Reevaluation #1: EKG negative STEMI. Head CT came back normal. Chest CT and UA negative for infection. Patient is hemodynamically stable. Vital signs stable. Awaiting for orthostatic vital signs. Patient accepted by hospitalist for admission for syncope. Time: 17:29 Reevaluation #2: Orthostatics were negative. Time: 17:35 Medical Decision Making [facility] Narrative Medical decision making narrative: Syncope vs seizure Lab Data Result diagrams: 07/10/21 15:36 07/10/21 15:36 Labs: Lab Results 07/10/21 07/10/21 07/10/21 Range/Units 15:36 15:36 15:36 WBC 10.1 (4.8-10.8) X10*3/uL RBC 4.15 L (4.60-5.80) X10*6/uL Hgb 13.5 L (14.0-18.0) g/dl Hct 40.5 L (42-52) % MCV 97.6 (80-98) fL MCH 32.5 (27.0-33.0) pg MCHC 33.3 (31.0-36.0) g/dl RDW 13.2 (11.0-16.0) % Plt Count 228 (160-400) X10*3/uL MPV 10.0 (9.4-12.4) fL Immature Gran % (Auto) 0.4 (0.0-0.4) % Neut % (Auto) 75.5 H (45-73) % Lymph % (Auto) 16.0 L (20-40) % [place] % (Auto) 6.7 (2-11) % Eos % (Auto) 1.0 (0-4) % Baso % (Auto) 0.4 (0-2) % Lymph # (Auto) 1.6 (1.2-4.9) X10*3/uL [place] # (Auto) 0.7 (0.1-1.2) X10*3/uL Eos # (Auto) 0.1 (0.0-0.4) X10*3/uL Baso # (Auto) 0.0 (0.0-0.2) X10*3/uL Abs Immat Gran (auto) 0.04 H (0.00-0.03) X10*3/uL Absolute Neuts (auto) 7.6 (2.0-8.3) X10*3/uL Absolute Nucleated RBC 0.000 (0.0-0.012) X10*3/uL Nucleated RBC % (auto) 0.0 (0.0-0.2) /100WBC Sodium 139 (135-145) mmol/L Potassium 4.6 (3.3-5.1) mmol/L Chloride 108 (96-108) mmol/L Carbon Dioxide 25 (22-29) mmol/L Anion Gap 11 L (12-20) BUN 36 H (9-16) mg/dL Creatinine 1.33 (0.5-1.4) mg/dL Estim Creat Clear Calc 63.6 Estimated GFR 53 Random Glucose 116 H (60-115) mg/dL Calcium 9.0 (8.4-10.2) mg/dL Magnesium 2.1 (1.6-2.6) mg/dL Total Bilirubin 1.2 H (0.0-1.0) mg/dL AST 17 (5-37) U/L ALT 16 (0-40) U/L Alkaline Phosphatase 101 (39-117) U/L Troponin I High Sens < 3.5 (<3.5-35.0) ng/L Total Protein 6.5 (6.5-8.0) g/dL Albumin 3.6 (3.5-5.0) g/dL Urine Color Urine Appearance Urine pH (5.0-8.0) Ur Specific [place] (1.005-1.025) Urine Protein (NEG-TRACE) MG/DL Urine Glucose (UA) (NEG) MG/DL Urine Ketones (NEG) MG/DL Urine Blood (NEG) Urine Nitrite (NEG) Ur Leukocyte Esterase (NEG) Urine Opiates Screen (Not Detect) Urine Fentanyl Screen (Not Detect) Ur Barbiturates Screen (Not Detect) Ur Phencyclidine Scrn (Not Detect) Ur Amphetamines Screen (Not Detect) U Benzodiazepines Scrn (Not Detect) Urine Cocaine Screen (Not Detect) U Marijuana (THC) Screen (Not Detect) 07/10/21 07/10/21 Range/Units 16:39 16:39 WBC (4.8-10.8) X10*3/uL RBC (4.60-5.80) X10*6/uL Hgb (14.0-18.0) g/dl Hct (42-52) % MCV (80-98) fL MCH (27.0-33.0) pg MCHC (31.0-36.0) g/dl RDW (11.0-16.0) % Plt Count (160-400) X10*3/uL MPV (9.4-12.4) fL Immature Gran % (Auto) (0.0-0.4) % Neut % (Auto) (45-73) % Lymph % (Auto) (20-40) % [place] % (Auto) (2-11) % Eos % (Auto) (0-4) % Baso % (Auto) (0-2) % Lymph # (Auto) (1.2-4.9) X10*3/uL [place] # (Auto) (0.1-1.2) X10*3/uL Eos # (Auto) (0.0-0.4) X10*3/uL Baso # (Auto) (0.0-0.2) X10*3/uL Abs Immat Gran (auto) (0.00-0.03) X10*3/uL Absolute Neuts (auto) (2.0-8.3) X10*3/uL Absolute Nucleated RBC (0.0-0.012) X10*3/uL Nucleated RBC % (auto) (0.0-0.2) /100WBC Sodium (135-145) mmol/L Potassium (3.3-5.1) mmol/L Chloride (96-108) mmol/L Carbon Dioxide (22-29) mmol/L Anion Gap (12-20) BUN (9-16) mg/dL Creatinine (0.5-1.4) mg/dL Estim Creat Clear Calc Estimated GFR Random Glucose (60-115) mg/dL Calcium (8.4-10.2) mg/dL Magnesium (1.6-2.6) mg/dL Total Bilirubin (0.0-1.0) mg/dL AST (5-37) U/L ALT (0-40) U/L Alkaline Phosphatase (39-117) U/L Troponin I High Sens (<3.5-35.0) ng/L Total Protein (6.5-8.0) g/dL Albumin (3.5-5.0) g/dL Urine Color YELLOW Urine Appearance CLEAR Urine pH 6.0 (5.0-8.0) Ur Specific [place] 1.020 (1.005-1.025) Urine Protein TRACE (NEG-TRACE) MG/DL Urine Glucose (UA) NEG (NEG) MG/DL Urine Ketones NEG (NEG) MG/DL Urine Blood NEG (NEG) Urine Nitrite NEG (NEG) Ur Leukocyte Esterase NEG (NEG) Urine Opiates Screen Not Detected (Not Detect) Urine Fentanyl Screen Not Detected (Not Detect) Ur Barbiturates Screen Not Detected (Not Detect) Ur Phencyclidine Scrn Not Detected (Not Detect) Ur Amphetamines Screen Not Detected (Not Detect) U Benzodiazepines Scrn Not Detected (Not Detect) Urine Cocaine Screen Not Detected (Not Detect) U Marijuana (THC) Screen Not Detected (Not Detect) ECG Data Interpretation: Sinus bradycardia. Ventricular rate 55. AK interval 156. Current 104. QTC 440. Left anterior faiscular block Negative Stemi Discharge Plan Discharge Clinical Impression: Syncope Patient Disposition: Admitted As Inpatient
[2021-07-10 15:41] LABS: MANUAL DIFF FLAG NO
[2021-07-10 15:42] LABS: Basophils Percent Auto 0.4 % (0-2); Eosinophils Absolute Auto 0.1 X10*3/uL (0.0-0.4); Hematocrit 40.5 % (42-52); Hemoglobin 13.5 g/dl (14.0-18.0); Imm Gran Abs Auto 0.04 X10*3/uL (0.00-0.03); Imm Gran Pct Auto 0.4 % (0.0-0.4); Lymphocytes Absolute Auto 1.6 X10*3/uL (1.2-4.9); Mean Corpuscular HGB Conc 33.3 g/dl (31.0-36.0); Mean Corpuscular Hemoglobin 32.5 pg (27.0-33.0); Mean Corpuscular Volume 97.6 fL (80-98); Monocytes Absolute Auto 0.7 X10*3/uL (0.1-1.2); Monocytes Percent Auto 6.7 % (2-11); Neutrophils Absolute Auto 7.6 X10*3/uL (2.0-8.3); Neutrophils Percent Auto 75.5 % (45-73); Platelet Count 228 X10*3/uL (160-400); Red Blood Count 4.15 X10*6/uL (4.60-5.80); Red Cell Distribution Width 13.2 % (11.0-16.0); White Blood Count 10.1 X10*3/uL (4.8-10.8)
[2021-07-10 16:04] LABS: Alanine Aminotransferase 16 U/L (0-40); Albumin Level 3.6 g/dL (3.5-5.0); Alkaline Phosphatase 101 U/L (39-117); Anion Gap 11 (12-20); Aspartate Amino Transferase 17 U/L (5-37); Bilirubin Total 1.2 mg/dL (0.0-1.0); Blood Urea Nitrogen 36 mg/dL (9-16); Carbon Dioxide 25 mmol/L (22-29); Chloride 108 mmol/L (96-108); Creatinine Clr Calc Pharmacy 63.6; Estimated Glomerular Filt Rate 53; Glucose Random 116 mg/dL (60-115); Magnesium 2.1 mg/dL (1.6-2.6); Potassium 4.6 mmol/L (3.3-5.1); Sodium 139 mmol/L (135-145); Total Protein 6.5 g/dL (6.5-8.0)
[2021-07-10 16:10] LABS: Troponin-I High Sensitivity < 3.5 ng/L (<3.5-35.0)
--- NOTE | 2021-07-10 16:42 | PC.NURSE ---
Pt is now awake, alert, and oriented x3 and conversing appropriately.
[2021-07-10 16:50] LABS: Appearance Urine CLEAR; Color Urine YELLOW; Glucose Urine UA NEG (NEG); Leukocyte Esterase Urine NEG (NEG); Nitrite Urine NEG (NEG); Urine Blood NEG (NEG); Urine Ketones NEG (NEG); Urine Protein TRACE MG/DL (NEG-TRACE)
[2021-07-10 17:02] LABS: Amphetamine Screen Urine Not Detected (Not Detect); Barbiturates, Urine Not Detected (Not Detect); Benzodiazepines Screen Urine Not Detected (Not Detect); Cannabinoid Screen Urine Not Detected (Not Detect); Cocaine Screen Urine Not Detected (Not Detect); Fentanyl, urine Not Detected (Not Detect); Opiate Screen Urine Not Detected (Not Detect); Phencyclidine Screen Urine Not Detected (Not Detect)
[2021-07-10 17:51] LABS: COVID-19 Test Negative (Negative); IDNOW Serial# 9DD0AD1C
--- NOTE | 2021-07-10 18:14 | PM.IMHP ---
History of Present Illness Date of Service: 07/10/21 Attending physician on admission: Mitra Bran Chief Complaint: Syncope 70-year-old gentleman with past medical history significant for prostate and bladder cancer, with frequent urination every 3-4 hours as well as history of loose bowel movement 3 times a day, developed abdominal pain at 13:00 went to the bathroom, felt dizzy had no bowel movement, therefore came back and sat on the couch talking to [id number] and , he passed out and had a bowel movement when he woke up his abdominal pain was resolved, he was awake alert, no tonic clonic seizures noted no taking biting patient underwent extensive workup in the emergency room including CT head and CTA that showed no acute abnormality, tele monitor shows no arrhythmia, EKG on admission showed sinus bradycardia, labs revealed normal hematocrit and WBC, BUN slightly elevated at 36 blood sugars stable at 116, patient is being admitted for syncope Review of Systems Review of Systems: General no headache no dizziness no fever chills. CVS no chest pain, no palpitation. Respiratory no cough, no sob. Gastrointestinal no nausea no vomiting, no abdominal pain, diarrhea urinary frequency chronic Musculoskeletal no pain Skin no rash Yes all other systems are reviewed and are negative [facility] Medical History Bladder tumor Bone cancer Elevated cholesterol Hematuria HTN (hypertension) Prostate CA Functional capacity: uses cane/walker Pertinent family history: Father is Mother is Has 3 brothers and 1 sister, no significant family history of frequent mature coronary artery disease Surgical History H/O prostate biopsy History of cystoscopy Social History Are you a primary healthcare administration internship to a significant other at home: No Do you presently have visiting nurse or other home services: No Alcohol intake: never Patient Tobacco Use Status: Never used Tobacco Second Hand Smoke Exposure: No Use of substances other than those prescribed or required for medical reasons: No Advance Directives: No Advance Directives Information Provided: No History of recent travel: No Meds Allergies Allergy/AdvReac Type Severity Reaction Status Date / Time oxycodone [Percocet] AdvReac Intermediate face got Verified 04/12/21 12:56 really red Active Medications: Current Medications Acetaminophen (Acetaminophen 325 Mg Tablet) 650 mg PO Q6H PRN PRN Reason: Pain, Mild (Pain Scale 1-3) Aspirin (Aspirin Enteric Coated 81 Mg Tablet.Dr) 81 mg PO DAILY [facility] Atorvastatin Calcium (Atorvastatin Calcium 40 Mg Tablet) 40 mg PO BEDTIME [facility] Enoxaparin Sodium (Enoxaparin Sodium 40 Mg/0.4 Ml Syringe) 40 mg SUBCUT Q24H [place] Lisinopril (Lisinopril 10 Mg Tablet) 10 mg PO DAILY [facility]; Protocol Ondansetron HCl (Ondansetron Hcl 4 Mg/2 Ml Vial) 4 mg IVPUSH Q8H PRN PRN Reason: Nausea and Vomiting Sodium Chloride (0.9 % Sodium Chloride Flush 3 Ml Syringe) 3 ml IVFLUSH QSHIFT [facility] Home Medications Medication Instructions Recorded Confirmed Last Taken Type atorvastatin 40 mg tablet 1 tab PO BEDTIME 07/19/20 07/10/21 07/09/21 History lisinopril 10 mg tablet 1 tab PO DAILY 07/19/20 07/10/21 07/10/21 History aspirin 81 mg tablet,delayed 81 mg PO DAILY 12/07/20 07/10/21 07/10/21 History release cholecalciferol (vitamin D3) 50 1 cap PO DAILY 12/07/20 07/10/21 07/10/21 History mcg (2,000 unit) capsule riboflavin (vitamin B2) 100 mg 200 mg PO QAM 01/05/21 07/10/21 07/10/21 History tablet amlodipine 2.5 mg tablet 5 mg PO DAILY 04/12/21 07/10/21 07/10/21 History enzalutamide 40 mg capsule (Xtandi) 80 mg PO BID 05/14/21 07/10/21 07/10/21 History magnesium 200 mg tablet 400 mg PO BID 05/14/21 07/10/21 07/10/21 History Physical Exam Vital Signs and Narrative: Vital Signs: Last Vital Signs Temp 97.9 F 07/10/21 14:14 Pulse 68 07/10/21 17:24 Resp 18 07/10/21 16:39 BP 132/75 07/10/21 17:24 Pulse Ox 99 07/10/21 16:39 Body Mass Index 28.5 General alert oriented x3, no acute distress. Neck is supple no JVD. CVS regular rate rhythm, systolic murmur Respiratory lungs clear to auscultation, no respiratory distress, no wheeze, no rhonchi. Gastrointestinal abdomen soft, obese, nontender, bowel sounds audible, no guarding , no rigidity. Extremities no clubbing cyanosis or edema. Neuro nonfocal, moving all 4 extremity, speech clear. Skin no rash Psych Appropriate affect Musculoskeletal no deformity Results Labs CBC and Chem 7: 07/10/21 15:36 07/10/21 15:36 Labs: Laboratory Results - last 24 hr 07/10/21 07/10/21 07/10/21 15:36 15:36 15:36 MCV 97.6 MCH 32.5 MCHC 33.3 RDW 13.2 Plt Count 228 MPV 10.0 Immature Gran % (Auto) 0.4 Neut % (Auto) 75.5 H Lymph % (Auto) 16.0 L [place] % (Auto) 6.7 Eos % (Auto) 1.0 Baso % (Auto) 0.4 Lymph # (Auto) 1.6 [place] # (Auto) 0.7 Eos # (Auto) 0.1 Baso # (Auto) 0.0 Abs Immat Gran (auto) 0.04 H Absolute Neuts (auto) 7.6 Absolute Nucleated RBC 0.000 Nucleated RBC % (auto) 0.0 Anion Gap 11 L Estim Creat Clear Calc 63.6 Estimated GFR 53 Random Glucose 116 H Calcium 9.0 Magnesium 2.1 Total Bilirubin 1.2 H AST 17 ALT 16 Alkaline Phosphatase 101 Troponin I High Sens < 3.5 Total Protein 6.5 Albumin 3.6 Urine Color Urine Appearance Urine pH Ur Specific [place] Urine Protein Urine Glucose (UA) Urine Ketones Urine Blood Urine Nitrite Ur Leukocyte Esterase Urine Opiates Screen Urine Fentanyl Screen Ur Barbiturates Screen Ur Phencyclidine Scrn Ur Amphetamines Screen U Benzodiazepines Scrn Urine Cocaine Screen U Marijuana (THC) Screen COVID-19 ([facility]) COVID-19 Clin Com 07/10/21 07/10/21 07/10/21 16:39 16:39 17:17 MCV MCH MCHC RDW Plt Count MPV Immature Gran % (Auto) Neut % (Auto) Lymph % (Auto) [place] % (Auto) Eos % (Auto) Baso % (Auto) Lymph # (Auto) [place] # (Auto) Eos # (Auto) Baso # (Auto) Abs Immat Gran (auto) Absolute Neuts (auto) Absolute Nucleated RBC Nucleated RBC % (auto) Anion Gap Estim Creat Clear Calc Estimated GFR Random Glucose Calcium Magnesium Total Bilirubin AST ALT Alkaline Phosphatase Troponin I High Sens Total Protein Albumin Urine Color YELLOW Urine Appearance CLEAR Urine pH 6.0 Ur Specific [place] 1.020 Urine Protein TRACE Urine Glucose (UA) NEG Urine Ketones NEG Urine Blood NEG Urine Nitrite NEG Ur Leukocyte Esterase NEG Urine Opiates Screen Not Detected Urine Fentanyl Screen Not Detected Ur Barbiturates Screen Not Detected Ur Phencyclidine Scrn Not Detected Ur Amphetamines Screen Not Detected U Benzodiazepines Scrn Not Detected Urine Cocaine Screen Not Detected U Marijuana (THC) Screen Not Detected COVID-19 ([facility]) Negative COVID-19 Clin Com See Note Imaging Radiologist's Impressions: Impressions Chest CT 07/10/21 15:19 IMPRESSION: No CT evidence of any dense airspace consolidation to suspect pneumonia. No significant change since prior CTA of the chest abdomen 11/08/2020. Head CT 07/10/21 15:19 IMPRESSION: No acute intracranial pathology. 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 Syncope Likely vasovagal in the setting of abdominal pain and bowel movement Orthostatic studies are unremarkable, CT head showed no acute abnormality, electrolytes are stable, no chest pain, normal troponin, EKG unremarkable, no evidence of infection, no arrhythmia on tele monitor Will admit patient to observation, continue tele monitor, neuro checks Hypertension BP stable, Continue Norvasc and lisinopril History of bladder and prostate cancer with frequent urination, UA showed no infection DVT prophylaxis with Lovenox Code status full code Quality Stroke Does the patient have a stroke diagnosis?: No VTE Prior VTE?: No VTE Risk Level:: Medical - moderate - high VTE Device Contraindication: Treatment Not Indicated VTE Drug Contraindication: N/A - Med Ordered
--- NOTE | 2021-07-10 18:56 | PC.NURSE ---
Pt's updated on admission and plan of care.
--- NOTE | 2021-07-10 20:06 | PC.NURSE ---
REPORT GIVEN TO MED/METHODS ENGINEER
[2021-07-10] MEDS: Enoxaparin Sodium 40 MG/0.4 ML SYRINGE SUBCUT (20:13)
[2021-07-10] MEDS: Atorvastatin Calcium 40 MG TABLET PO (20:13)
[2021-07-10] MEDS: 0.9 % Sodium Chloride Flush 3 ML SYRINGE IVFLUSH (21:27)
[2021-07-11] VITALS: BP 132/74; PULSE 65; RESP 17; TEMP 36.3; O2SAT 97
[2021-07-11 04:00] VITALS: BP 121/70; PULSE 53; RESP 17; TEMP 36.2; O2SAT 98
[2021-07-11 08:00] VITALS: BP 115/79; PULSE 52; RESP 18; TEMP 36.3; O2SAT 98
[2021-07-11] MEDS: 0.9 % Sodium Chloride Flush 3 ML SYRINGE IVFLUSH (08:13)
[2021-07-11] MEDS: lisinopriL 10 MG TABLET PO (08:13)
[2021-07-11] MEDS: Aspirin Enteric Coated 81 MG TABLET.DR PO (08:13)
--- NOTE | 2021-07-11 11:07 | MHC.CM.PN ---
CM MET WITH PT WHO REPORTS HE LIVES AT HOME WITH HIS AND HAS BEEN INDEPENDENT WITH ALL CARE PT REPORTS HE USES A CANE IN THE HOME BUT A WALKER WHEN HE GOES OUT. PT DOES NOT HAVE HOME SERVICES AT THIS TIME BUT REPORTS HE IS WORKING WITH [facility] TO GET HOME CARE. PT REPORTS HE HAS A HCP NAMING HIS HIS AGENT-COPY REQUESTED. PCP IS SVETLANA WOODRUFF IMM DELIVERED PT CLEARED TO [facility] TODAY WITH NO NEW SERVICES DAUGHTER TO TRANSPORT
[2021-07-11 12:00] VITALS: BP 134/78; PULSE 53; RESP 18; TEMP 36.2; O2SAT 99
--- NOTE | 2021-07-11 12:58 | PM.DS ---
DS: Providers Provider Date of Service: 07/11/21 Date of admission: 07/10/21 18:07 Primary care physician: Eric Dinh MD DS: Diagnosis Discharge Diagnosis (1) Syncope: Status: Acute (2) Bladder cancer: Status: Acute (3) Prostate CA: Status: Acute DS: Summary Hospital Course Hospital Course: History of presenting illness Chief Complaint: Syncope 70-year-old gentleman with past medical history significant for prostate and bladder cancer, with frequent urination every 3-4 hours as well as history of loose bowel movement 3 times a day, developed abdominal pain at 13:00 went to the bathroom, felt dizzy had no bowel movement, therefore came back and sat on the couch talking to [id number] and , he passed out and had a bowel movement when he woke up his abdominal pain was resolved, he was awake alert, no tonic clonic seizures noted no taking biting patient underwent extensive workup in the emergency room including CT head and CTA that showed no acute abnormality, tele monitor shows no arrhythmia, EKG on admission showed sinus bradycardia, labs revealed normal hematocrit and WBC, BUN slightly elevated at 36 blood sugars stable at 116, patient is being admitted for syncope Hospital course 70-year-old gentleman with past medical history significant for bladder and prostate cancer presented to [facility] with acute onset of syncope, likely vasovagal in the setting of abdominal pain and bowel movement Orthostatic studies unremarkable, CT head showed no acute abnormality, electrolytes are stable, no chest pain, normal troponin, EKG unremarkable, no evidence of infection, no arrhythmia on tele monitor, except noted to have bradycardia likely due to propranolol, no pauses, will reduce dose of propranolol from 80 mg daily to 60 mg daily, case discussed with patient recommend outpatient follow-up with primary care physician, bradycardia did not contribute to syncope Time Spent with Patient Time attestation: Total time spent providing and/or coordinating discharge services: Discharge coordination time: Greater than 30 minutes Quality: Stroke Does the patient have a stroke diagnosis?: No Physical Exam Vital Signs: Vital Signs: Last Vital Signs Temp 97.1 F 07/11/21 12:00 Pulse 53 07/11/21 12:00 Resp 18 07/11/21 12:00 BP 134/78 07/11/21 12:00 Pulse Ox 99 07/11/21 12:00 Body Mass Index 28.5 General alert orie nted x3, no acute distress.? Neck is supple no JVD. CV S? regular rate rh ythm, systolic mur mur Respiratory keeley ngs clear to auscu ltation, no respir atory distress, no wheeze, no rhonch i. Gastrointestina l abdomen soft, ob karen, nontender, pam wel sounds audible , no guarding , no rigidity. Extremi ties no clubbing c yanosis or edema. Neuro nonfocal, mo ving all 4 extremi ty, speech clear. Skin no rash Psych Appropriate affec t Musculoskeletal no deformity DS: Data Data Completed and Pending Labs on day of discharge: Laboratory Results - last 24 hr 07/10/21 07/10/21 07/10/21 15:36 15:36 15:36 WBC 10.1 RBC 4.15 L Hgb 13.5 L Hct 40.5 L MCV 97.6 MCH 32.5 MCHC 33.3 RDW 13.2 Plt Count 228 MPV 10.0 Immature Gran % (Auto) 0.4 Neut % (Auto) 75.5 H Lymph % (Auto) 16.0 L [place] % (Auto) 6.7 Eos % (Auto) 1.0 Baso % (Auto) 0.4 Lymph # (Auto) 1.6 [place] # (Auto) 0.7 Eos # (Auto) 0.1 Baso # (Auto) 0.0 Abs Immat Gran (auto) 0.04 H Absolute Neuts (auto) 7.6 Absolute Nucleated RBC 0.000 Nucleated RBC % (auto) 0.0 Sodium 139 Potassium 4.6 Chloride 108 Carbon Dioxide 25 Anion Gap 11 L BUN 36 H Creatinine 1.33 Estim Creat Clear Calc 63.6 Estimated GFR 53 Random Glucose 116 H Calcium 9.0 Magnesium 2.1 Total Bilirubin 1.2 H AST 17 ALT 16 Alkaline Phosphatase 101 Troponin I High Sens < 3.5 Total Protein 6.5 Albumin 3.6 Urine Color Urine Appearance Urine pH Ur Specific [place] Urine Protein Urine Glucose (UA) Urine Ketones Urine Blood Urine Nitrite Ur Leukocyte Esterase Urine Opiates Screen Urine Fentanyl Screen Ur Barbiturates Screen Ur Phencyclidine Scrn Ur Amphetamines Screen U Benzodiazepines Scrn Urine Cocaine Screen U Marijuana (THC) Screen COVID-19 ([facility]) COVID-19 Clin Com 07/10/21 07/10/21 07/10/21 16:39 16:39 17:17 WBC RBC Hgb Hct MCV MCH MCHC RDW Plt Count MPV Immature Gran % (Auto) Neut % (Auto) Lymph % (Auto) [place] % (Auto) Eos % (Auto) Baso % (Auto) Lymph # (Auto) [place] # (Auto) Eos # (Auto) Baso # (Auto) Abs Immat Gran (auto) Absolute Neuts (auto) Absolute Nucleated RBC Nucleated RBC % (auto) Sodium Potassium Chloride Carbon Dioxide Anion Gap BUN Creatinine Estim Creat Clear Calc Estimated GFR Random Glucose Calcium Magnesium Total Bilirubin AST ALT Alkaline Phosphatase Troponin I High Sens Total Protein Albumin Urine Color YELLOW Urine Appearance CLEAR Urine pH 6.0 Ur Specific [place] 1.020 Urine Protein TRACE Urine Glucose (UA) NEG Urine Ketones NEG Urine Blood NEG Urine Nitrite NEG Ur Leukocyte Esterase NEG Urine Opiates Screen Not Detected Urine Fentanyl Screen Not Detected Ur Barbiturates Screen Not Detected Ur Phencyclidine Scrn Not Detected Ur Amphetamines Screen Not Detected U Benzodiazepines Scrn Not Detected Urine Cocaine Screen Not Detected U Marijuana (THC) Screen Not Detected COVID-19 ([facility]) Negative COVID-19 Clin Com See Note Discharge Plan Discharge Patient Disposition: Home, Self-Care Discharge Diagnosis: syncope Referrals: Eric Dinh MD [Primary Care Provider] - 1 Week Discharge Medications: New propranolol 60 mg capsule,extended release 24 hr 60 mg PO DAILY Qty: 30 RF: 0 Continued cholecalciferol (vitamin D3) 50 mcg (2,000 unit) capsule 1 cap PO DAILY RF: 0 aspirin 81 mg Tablet,Delayed Release (Dr/Ec) 81 mg PO DAILY RF: 0 Xtandi 40 mg capsule 80 mg PO BID RF: 0 magnesium 200 mg Tablet 400 mg PO BID RF: 0 atorvastatin 40 mg tablet 1 tab PO BEDTIME RF: 0 tamsulosin 0.4 mg capsule 1 cap PO BID RF: 0 Discontinued propranolol 80 mg capsule,extended release 24 hr 1 cap PO DAILY RF: 0 Discharge Orders: Discharge Order (Routine); Ordered 07/11/21 Ordered By: Mitra Bran Diet: advance to usual diet Activity on Discharge: As tolerated Stand Alone Forms: Patient Portal Discharge page Care Plan Goals: Continue all home medications as before dose of propranolol lowered to 60 mg daily due to decreased heart rate, no further workup warranted at this time. Health Concerns: Bladder cancer/prostate cancer/hypertension continue home medication Plan of Treatment: Outpatient follow-up with primary care physician in next 1-2 weeks Assessment: As above
== END 2021-07-11 14:50 | disposition home or self-care (01) ==
LOC: HO.ED 17:32 → HO.EDOVER 18:30 → HO.S3 19:56
PROVIDERS: Physician Assistant; Admitting Provider Hospitalist; Emergency Provider Emergency Medicine Emergency Medical Services; PCP Family Medicine; Visit Provider Hospitalist
DX: R55 Syncope and collapse (principal); R41.82 Altered mental status, unspecified; C67.1 Malignant neoplasm of dome of bladder; C61 Malignant neoplasm of prostate; I10 Essential (primary) hypertension; R51.9 Headache, unspecified; R10.11 Right upper quadrant pain; I44.4 Left anterior fascicular block; R00.1 Bradycardia, unspecified; T44.7X5A Adverse effect of beta-adrenoreceptor antagonists, initial encounter; M85.80 Other specified disorders of bone density and structure, unspecified site; M40.04 Postural kyphosis, thoracic region; Z20.822 Contact with and (suspected) exposure to COVID-19; Z79.899 Other long term (current) drug therapy
CPT/HCPCS: 36415; 70450; 71250; 80053; 80307; 81003; 83735; 84484; 85025; 87635; 93005; 96372; 96374; 99218; 99285; J1650

== ENCOUNTER 2021-07-12 15:50 | Inpatient (IN) | payer MEDICARE, SELFPAY ==
--- NOTE | ~2021-07-12 | CT_ITS ---
EXAMINATION: CT HEAD WITHOUT CONTRAST CLINICAL INFORMATION: Headache. Right-sided weakness. COMPARISON: CT head July 10, 2021 TECHNIQUE: Contiguous axial imaging was performed from the skull base to vertex without intravenous administration of contrast. This CT examination was performed using dose optimization techniques as appropriate, variously including the following: *Automated exposure control *Adjustment of mA and/or kV according to patient size (this includes techniques or standardized protocols for targeted exams where dose is matched to indication/reason for exam; i.e. extremities or head) *Use of iterative reconstruction technique DLP: 788 mGy-cm FINDINGS: There is no evidence of acute intracranial hemorrhage or territorial infarction. No abnormal mass effect or midline shift is seen. Cade to white matter differentiation is well preserved. No extra-axial fluid collections are identified. There is generalized global volume loss. There is mild prominence of the ventricles and the sulci . There is moderate hypodensity of the periventricular white matter due to chronic small vessel ischemic disease. There are vascular calcifications of the internal carotid arteries bilaterally. The osseous structures and soft tissues are normal. The mastoid air cells and visualized portions of the paranasal sinuses are well aerated. CT/CT head/brain wo con IMPRESSION: No acute intracranial pathology.
--- NOTE | ~2021-07-12 | XR_ITS ---
EXAMINATION: XR CHEST CLINICAL INFORMATION: Right-sided weakness COMPARISON: Previous chest x-rays most recent April [address] June 2021 TECHNIQUE: 2 views of the chest were obtained. FINDINGS: The lung volumes are low. The cardiac and mediastinal contours are stable. There may be subsegmental atelectasis at the left lung base. The lungs are otherwise clear. There is no pleural effusion or pneumothorax. There are degenerative changes of the thoracic spine and ossification of the anterior longitudinal ligament. XR/XR chest 2V IMPRESSION: No evidence for acute disease in the chest.
--- NOTE | ~2021-07-12 | US_ITS ---
EXAMINATION: US EXTRACRANIAL CAROTID DUPLEX, BILATERAL CLINICAL INFORMATION: TIA COMPARISON: None TECHNIQUE: Real-time ultrasound and Doppler techniques (integrating B-mode 2-D vascular images, Doppler spectral analysis and color-flow Doppler imaging) were utilized to interrogate the extracranial carotid arteries, the vertebral arteries and proximal subclavian arteries bilaterally. The degree of stenosis is determined by criteria similar to NASCET. FINDINGS: Right Side: 1. There is no significant atherosclerotic plaque seen in the bifurcation/proximal ICA region. 2. The common carotid artery PSV proximally is 123 cm/s and distally 70 cm/s. 3. The proximal internal carotid artery velocities are 69 cm/s systolic and 21 cm/s diastolic. 4. The proximal external carotid artery PSV is 97 cm/s. 5. The vertebral artery shows antegrade flow. 6. The subclavian artery waveforms are normal. Left Side: 1. There is no significant atherosclerotic plaque seen in the bifurcation/proximal ICA region. 2. The common carotid artery PSV proximally is 93 cm/s and distally 94 cm/s. 3. The proximal internal carotid artery velocities are 57 cm/s systolic and 13 cm/s diastolic. 4. The proximal external carotid artery PSV is 58 cm/s. 5. The vertebral artery shows antegrade flow. 6. The subclavian artery waveforms are normal. Incidental findings: 8 mm heterogeneous nodule within the right thyroid lobe. US/US carotid duplex BI IMPRESSION: 1. RIGHT: Normal right internal carotid artery without atherosclerotic plaque or hemodynamically significant stenosis. 2. LEFT: Normal left internal carotid artery without atherosclerotic plaque or hemodynamically significant stenosis.
--- NOTE | ~2021-07-12 | MR_ITS ---
EXAMINATION: MR BRAIN WITHOUT AND WITH CONTRAST CLINICAL INFORMATION: History of prostate cancer. Transient ischemic attack. COMPARISON: CT head from 07/12/2021. CTA head and neck from 06/14/2021. Brain MRI from 05/25/2020. TECHNIQUE: MRI of the brain was obtained using routine sequences without and following the administration of 10 mL of Gadavist intravenous contrast. FINDINGS: No focal restricted diffusion is demonstrated to suggest acute or subacute cerebral ischemia. No evidence of acute hemorrhagic products on heme-sensitive imaging. Chronic focus of susceptibility artifact consistent with petechial microhemorrhage in the left parietal lobe. Confluent periventricular, deep white matter, and brainstem T2 FLAIR hyperintensity consistent with underlying microangiopathy. Proportional prominence of the ventricles and sulcal spaces without evidence of obstructive hydrocephalus. No abnormal mass effect. No midline shift. Normal appearance of the pituitary gland. Normal positioning of the cerebellar tonsils. Normal arterial and venous vascular flow voids are present. No abnormal contrast enhancement. Normal, homogeneous marrow signal. Moderate degenerative spondyloarthropathy of the visualized upper cervical spine. Mild mucosal thickening of the paranasal sinuses. No signal abnormalities within the mastoids. MR/MR head/brain wo/w con IMPRESSION: 1. No acute intracranial abnormalities. No abnormal intracranial enhancement. 2. Extensive underlying microangiopathy. Moderate generalized cerebral volume loss.
[2021-07-12 16:00] VITALS: BP 143/77; PULSE 58; RESP 16; TEMP 36.5; O2SAT 97; BMI 34.2
--- NOTE | 2021-07-12 16:09 | ECG_ITS ---
Test Reason : HEADACHE Blood Pressure : / mmHG Vent. Rate : 056 BPM Atrial Rate : 056 BPM P-R Int : 156 ms QRS Dur : 104 ms QT Int : 458 ms P-R-T Axes : 011 -64 007 degrees QTc Int : 441 ms Sinus bradycardia Left axis deviation Abnormal ECG When compared with ECG of 10-JUL-2021 14:38, No significant change was found Referred By: Shan Salgado Electronically Signed By:MARISA ACUÑA
--- NOTE | 2021-07-12 16:10 | ED_ITS ---
HPI - Headache General Chief Complaint: Headache Stated Complaint: headache Time Seen by Provider: 07/12/21 16:05 Source: patient and old records reviewed History of Present Illness HPI Narrative: Patient states he had severe sudden onset headache today. Accompanied with right-sided weakness. Including face arm leg. He states he had a similar episode over the weekend where he was brought into the hospital in the workup was negative. Although review of so prior records show he was in for syncope without mention of headache or weakness. He is on aspirin but no other blood thinners. He denies falls or trauma. Positive nausea no vomiting. He has history of bladder and prostate cancer for which he is currently undergoing treatment. Related Data Home Medications Medication Instructions Recorded Confirmed atorvastatin 40 mg tablet 1 tab PO BEDTIME 07/19/20 07/10/21 aspirin 81 mg tablet,delayed 81 mg PO DAILY 12/07/20 07/10/21 release cholecalciferol (vitamin D3) 50 1 cap PO DAILY 12/07/20 07/10/21 mcg (2,000 unit) capsule riboflavin (vitamin B2) 100 mg 200 mg PO QAM 01/05/21 07/10/21 tablet enzalutamide 40 mg capsule (Xtandi) 80 mg PO BID 05/14/21 07/10/21 magnesium 200 mg tablet 400 mg PO BID 05/14/21 07/10/21 tamsulosin 0.4 mg capsule 1 cap PO BID 07/10/21 07/10/21 Previous Rx's Medication Instructions Recorded propranolol 60 mg capsule,24 60 mg PO DAILY #30 cap 07/11/21 hr,extended release Allergies Allergy/AdvReac Type Severity Reaction Status Date / Time oxycodone [Percocet] AdvReac Intermediate face got Verified 04/12/21 12:56 really red Review of Systems Constitutional: Comments: Headache Eyes: Comments: Photophobia without vision change Cardiovascular: Comments: No chest pain Respiratory: Comments: No dyspnea Gastrointestinal: Comments: Abdominal pain which he states is diffuse. Similar to when he was brought in before. At that time and was relieved with bowel movement. CT scan of the abdomen was negative Neurologic: Comments: Right-sided weakness, face arm and leg Allergic/Immunologic: Comments: On chemotherapy [facility] Past Medical History Medical History Bladder tumor Bone cancer Elevated cholesterol Hematuria HTN (hypertension) Prostate CA Surgical History H/O prostate biopsy History of cystoscopy Social History Social History Are you a primary dialysis patient care technician to a significant other at home: No Do you presently have visiting nurse or other home services: No Alcohol intake: never Patient Tobacco Use Status: Never used Tobacco Second Hand Smoke Exposure: No Use of substances other than those prescribed or required for medical reasons: No Advance Directives: No Advance Directives Information Provided: No service: No Current occupational status: retired Physical Exam Vital Signs: Vital Signs: Last Vital Signs Temp 97.7 F 07/12/21 16:00 Pulse 58 07/12/21 16:00 Resp 18 07/12/21 16:22 BP 143/77 H 07/12/21 16:00 Pulse Ox 97 07/12/21 16:00 Body Mass Index 34.2 Const: Other: Patient is somnolent and appears uncomfortable. He is arousable with gentle shaking. HENMT: Other: Normocephalic atraumatic Eyes: Other: Pupils equal round reactive to light with normal tracking. Neck: Other: No meningismus noted Resp: Other: Clear and equal but mildly diminished Cardio: Other: Regular rate and rhythm without murmurs rubs or gallops Skin: Other: Pale dry, nondiaphoretic Neuro: Other: Right facial droop present. Right arm with decreased watch case polisher strength. Positive pronator drift. Right leg with some ability to lift against gravity. Left face and arm normal. Left leg slightly weak but not as pronounced as right leg NIH Stroke Scale Internal: Initial- Upon Arrival Time: 16:15 Level of Consciousness: Not Alert; but arousable by minor stimulation Level of Consciousness Questions: Answers both questions correctly Level of Consciousness Commands: Performs both tasks correctly Best Gaze: Normal Visual: No visual loss Facial Palsy: Partial paralysis Motor Arm (Right): Some effort against gravity Motor Arm (Left): No drift Motor Leg (Right): Some effort against gravity Motor Leg (Left): Drift Limb Ataxia: Absent Sensory: Normal Best Language: No aphasia Dysarthia: Normal Extinction and Inattention: No abnormality Score: 8 Course Course Course Narrative: Patient approximately 4 hours post S headache with neuro deficit. It is unclear if this is new onset or had been present during his last visit per patient. Either way he would not be a candidate for thrombolytics. Given the severe headache, is very concerning for possible intracranial hemorrhage. Will do a stat CT scan. 6:[address] scan shows no obvious hemorrhage or territorial infarct. She currently feels much better and is back to his neurologic baseline without headache. Looking back through his recent records, this is his 3rd visit for similar type symptoms. He has had CT angiography of head and neck which were negative. But he has not yet had a neurologic consult for an MRI. It is unclear whether he is having TIAs versus complex migraines. He has never had migraines before and is certainly high risk for potential TIA/especially thromboembolic. Will hospitalized for further workup and monitoring MDM - Headache Lab Data Result diagrams: 07/12/21 16:52 07/12/21 16:52 Labs: Lab Results 07/12/21 07/12/21 07/12/21 Range/Units 16:52 16:52 16:52 WBC 8.2 (4.8-10.8) X10*3/uL RBC 4.09 L (4.60-5.80) X10*6/uL Hgb 13.5 L (14.0-18.0) g/dl Hct 39.9 L (42-52) % MCV 97.6 (80-98) fL MCH 33.0 (27.0-33.0) pg MCHC 33.8 (31.0-36.0) g/dl RDW 13.3 (11.0-16.0) % Plt Count 230 (160-400) X10*3/uL MPV 9.8 (9.4-12.4) fL Immature Gran % (Auto) 0.1 (0.0-0.4) % Neut % (Auto) 55.5 (45-73) % Lymph % (Auto) 33.3 (20-40) % [place] % (Auto) 8.4 (2-11) % Eos % (Auto) 2.2 (0-4) % Baso % (Auto) 0.5 (0-2) % Lymph # (Auto) 2.7 (1.2-4.9) X10*3/uL [place] # (Auto) 0.7 (0.1-1.2) X10*3/uL Eos # (Auto) 0.2 (0.0-0.4) X10*3/uL Baso # (Auto) 0.0 (0.0-0.2) X10*3/uL Abs Immat Gran (auto) 0.01 (0.00-0.03) X10*3/uL Absolute Neuts (auto) 4.6 (2.0-8.3) X10*3/uL Absolute Nucleated RBC 0.000 (0.0-0.012) X10*3/uL Nucleated RBC % (auto) 0.0 (0.0-0.2) /100WBC PT 10.1 (9.9-13.0) SEC INR 0.9 (0.9-1.1) D-Dimer < 200 NG/ML Sodium 141 (135-145) mmol/L Potassium 5.1 (3.3-5.1) mmol/L Chloride 108 (96-108) mmol/L Carbon Dioxide 27 (22-29) mmol/L Anion Gap 11 L (12-20) BUN 42 H (9-16) mg/dL Creatinine 1.37 (0.5-1.4) mg/dL Estim Creat Clear Calc 59.7 Estimated GFR 52 Random Glucose 107 (60-115) mg/dL Calcium 9.4 (8.4-10.2) mg/dL Total Bilirubin 1.2 H (0.0-1.0) mg/dL AST 18 (5-37) U/L ALT 15 (0-40) U/L Alkaline Phosphatase 110 (39-117) U/L Ammonia (13-55) umol/L Total Protein 6.9 (6.5-8.0) g/dL Albumin 3.8 (3.5-5.0) g/dL COVID-19 ([facility]) (Negative) COVID-19 Clin Com 07/12/21 07/12/21 Range/Units 16:52 16:52 WBC (4.8-10.8) X10*3/uL RBC (4.60-5.80) X10*6/uL Hgb (14.0-18.0) g/dl Hct (42-52) % MCV (80-98) fL MCH (27.0-33.0) pg MCHC (31.0-36.0) g/dl RDW (11.0-16.0) % Plt Count (160-400) X10*3/uL MPV (9.4-12.4) fL Immature Gran % (Auto) (0.0-0.4) % Neut % (Auto) (45-73) % Lymph % (Auto) (20-40) % [place] % (Auto) (2-11) % Eos % (Auto) (0-4) % Baso % (Auto) (0-2) % Lymph # (Auto) (1.2-4.9) X10*3/uL [place] # (Auto) (0.1-1.2) X10*3/uL Eos # (Auto) (0.0-0.4) X10*3/uL Baso # (Auto) (0.0-0.2) X10*3/uL Abs Immat Gran (auto) (0.00-0.03) X10*3/uL Absolute Neuts (auto) (2.0-8.3) X10*3/uL Absolute Nucleated RBC (0.0-0.012) X10*3/uL Nucleated RBC % (auto) (0.0-0.2) /100WBC PT (9.9-13.0) SEC INR (0.9-1.1) D-Dimer NG/ML Sodium (135-145) mmol/L Potassium (3.3-5.1) mmol/L Chloride (96-108) mmol/L Carbon Dioxide (22-29) mmol/L Anion Gap (12-20) BUN (9-16) mg/dL Creatinine (0.5-1.4) mg/dL Estim Creat Clear Calc Estimated GFR Random Glucose (60-115) mg/dL Calcium (8.4-10.2) mg/dL Total Bilirubin (0.0-1.0) mg/dL AST (5-37) U/L ALT (0-40) U/L Alkaline Phosphatase (39-117) U/L Ammonia 28 (13-55) umol/L Total Protein (6.5-8.0) g/dL Albumin (3.5-5.0) g/dL COVID-19 ([facility]) Negative (Negative) COVID-19 Clin Com See Note Discharge Plan Discharge Clinical Impression: Brain TIA Prescriptions: No Action cholecalciferol (vitamin D3) 50 mcg (2,000 unit) capsule 1 cap PO DAILY RF: 0 aspirin 81 mg Tablet,Delayed Release (Dr/Ec) 81 mg PO DAILY RF: 0 Xtandi 40 mg capsule 80 mg PO BID RF: 0 magnesium 200 mg Tablet 400 mg PO BID RF: 0 atorvastatin 40 mg tablet 1 tab PO BEDTIME RF: 0 tamsulosin 0.4 mg capsule 1 cap PO BID RF: 0 propranolol 60 mg capsule,extended release 24 hr 60 mg PO DAILY Qty: 30 RF: 0
[2021-07-12 16:22] VITALS: RESP 18
[2021-07-12] MEDS: HYDROmorphone HCl 1 MG/ML SYRINGE IVPUSH (16:22)
[2021-07-12] MEDS: ondansetron HCL 4 MG/2 ML VIAL IVPUSH (16:22)
[2021-07-12 17:02] LABS: MANUAL DIFF FLAG NO
[2021-07-12 17:04] LABS: Basophils Percent Auto 0.5 % (0-2); Eosinophils Absolute Auto 0.2 X10*3/uL (0.0-0.4); Eosinophils Percent Auto 2.2 % (0-4); Hematocrit 39.9 % (42-52); Hemoglobin 13.5 g/dl (14.0-18.0); Imm Gran Abs Auto 0.01 X10*3/uL (0.00-0.03); Imm Gran Pct Auto 0.1 % (0.0-0.4); Lymphocytes Absolute Auto 2.7 X10*3/uL (1.2-4.9); Lymphocytes Percent Auto 33.3 % (20-40); Mean Corpuscular HGB Conc 33.8 g/dl (31.0-36.0); Mean Corpuscular Volume 97.6 fL (80-98); Mean Platelet Volume 9.8 fL (9.4-12.4); Monocytes Absolute Auto 0.7 X10*3/uL (0.1-1.2); Monocytes Percent Auto 8.4 % (2-11); Neutrophils Absolute Auto 4.6 X10*3/uL (2.0-8.3); Neutrophils Percent Auto 55.5 % (45-73); Platelet Count 230 X10*3/uL (160-400); Red Blood Count 4.09 X10*6/uL (4.60-5.80); Red Cell Distribution Width 13.3 % (11.0-16.0); White Blood Count 8.2 X10*3/uL (4.8-10.8)
[2021-07-12 17:10] LABS: INTERNATIONAL NORM RATIO 0.9 (0.9-1.1); Prothrombin Time 10.1 SEC (9.9-13.0)
[2021-07-12 17:15] LABS: D Dimer < 200 NG/ML
[2021-07-12 17:21] LABS: Alanine Aminotransferase 15 U/L (0-40); Albumin Level 3.8 g/dL (3.5-5.0); Alkaline Phosphatase 110 U/L (39-117); Anion Gap 11 (12-20); Aspartate Amino Transferase 18 U/L (5-37); Bilirubin Total 1.2 mg/dL (0.0-1.0); Blood Urea Nitrogen 42 mg/dL (9-16); Calcium 9.4 mg/dL (8.4-10.2); Carbon Dioxide 27 mmol/L (22-29); Chloride 108 mmol/L (96-108); Creatinine Clr Calc Pharmacy 59.7; Estimated Glomerular Filt Rate 52; Glucose Random 107 mg/dL (60-115); Potassium 5.1 mmol/L (3.3-5.1); Sodium 141 mmol/L (135-145); Total Protein 6.9 g/dL (6.5-8.0)
[2021-07-12 17:27] LABS: COVID-19 Test Negative (Negative)
[2021-07-12 17:31] LABS: Ammonia 28 umol/L (13-55)
--- NOTE | 2021-07-12 18:13 | PC.NURSE ---
updated on plan of care- reports that she is concerned these episodes are happening due to oral chemo
--- NOTE | 2021-07-12 18:47 | PM.IMHP ---
History of Present Illness Date of Service: 07/12/21 62-year-old male with history of metastatic prostate cancer presents today to ER with acute onset of headache accompanied by right-sided weakness. He was seen in the ER CT scan negative for acute pathology; per ER MD symptoms resolve spontaneously. In review of chart patient seen 05/14/2021 for a fall out of a chair that was preceded by a bad headache. He was seen again 06/14/2021 for complaints of acute onset severe frontal headache blurred vision and bilateral lower extremity weakness. Again workup was negative and he was discharged to home. He was seen and admitted for questionable syncopal episode. Orthostatics studies were unremarkable CT was negative and labs were unremarkable. It was thought his syncope was related to bradycardia related to his beta rigoberto use. Today represents the 4th episode of abnormal neural presentations that have been preceded by headache. Patient states that he has been told these may be complex migraines; this is the 1st episode of hemiparesis that resolved. He will be admitted for further workup and Neuro consult. In the ER, all his presenting symptoms have resolved. Review of Systems Constitutional: Comments: No acute distress. All ROS negative save those mentioned in HPI. FORMERLY [facility], [facility]1983 Medical History Bladder tumor Bone cancer Elevated cholesterol Hematuria HTN (hypertension) Prostate CA Pertinent family history: . Surgical History H/O prostate biopsy History of cystoscopy Social History Are you a primary care transition manager to a significant other at home: No Do you presently have visiting nurse or other home services: No Alcohol intake: never Patient Tobacco Use Status: Never used Tobacco Second Hand Smoke Exposure: No Use of substances other than those prescribed or required for medical reasons: No Advance Directives: No Advance Directives Information Provided: No service: No Current occupational status: retired Meds Allergies Allergy/AdvReac Type Severity Reaction Status Date / Time oxycodone [Percocet] AdvReac Intermediate face got Verified 04/12/21 12:56 really red Home Medications Medication Instructions Recorded Confirmed Last Taken Type atorvastatin 40 mg tablet 1 tab PO BEDTIME 07/19/20 07/10/21 07/09/21 History aspirin 81 mg tablet,delayed 81 mg PO DAILY 12/07/20 07/10/21 07/10/21 History release cholecalciferol (vitamin D3) 50 1 cap PO DAILY 12/07/20 07/10/21 07/10/21 History mcg (2,000 unit) capsule riboflavin (vitamin B2) 100 mg 200 mg PO QAM 01/05/21 07/10/21 07/10/21 History tablet enzalutamide 40 mg capsule (Xtandi) 80 mg PO BID 05/14/21 07/10/21 07/10/21 History magnesium 200 mg tablet 400 mg PO BID 05/14/21 07/10/21 07/10/21 History tamsulosin 0.4 mg capsule 1 cap PO BID 07/10/21 07/10/21 07/10/21 History Physical Exam Vital Signs and Narrative: Vital Signs: Last Vital Signs Temp 97.7 F 07/12/21 16:00 Pulse 58 07/12/21 16:00 Resp 18 07/12/21 16:22 BP 143/77 H 07/12/21 16:00 Pulse Ox 97 07/12/21 16:00 Body Mass Index 34.2 Const: Other: Awake alert oriented x3 no acute distress HENMT: Other: TMs lujan and lucent bilaterally. Oropharynx clear membranes moist Neck: Other: No JVD or bruit Resp: Other: Lungs clear to auscultation and percussion. No wheezes rales or rhonchi Cardio: Other: No S4 positive S1-S2 GI: Other: Soft nontender nondistended with normoactive bowel sounds. There is no appreciable hepatosplenomegaly. No peritoneal signs Neuro: Other: Cranial nerves 2-12 grossly intact as tested. Motor is 5/5 all extremities. Sensation is intact. There is no pronator drift. Toes are downgoing. Not ambulated Extrem: Other: No edema bilaterally Results Labs CBC and Chem 7: 07/12/21 16:52 07/12/21 16:52 Labs: Laboratory Results - last 24 hr 07/12/21 07/12/21 07/12/21 16:52 16:52 16:52 MCV 97.6 MCH 33.0 MCHC 33.8 RDW 13.3 Plt Count 230 MPV 9.8 Immature Gran % (Auto) 0.1 Neut % (Auto) 55.5 Lymph % (Auto) 33.3 [place] % (Auto) 8.4 Eos % (Auto) 2.2 Baso % (Auto) 0.5 Lymph # (Auto) 2.7 [place] # (Auto) 0.7 Eos # (Auto) 0.2 Baso # (Auto) 0.0 Abs Immat Gran (auto) 0.01 Absolute Neuts (auto) 4.6 Absolute Nucleated RBC 0.000 Nucleated RBC % (auto) 0.0 PT 10.1 INR 0.9 D-Dimer < 200 Anion Gap 11 L Estim Creat Clear Calc 59.7 Estimated GFR 52 Random Glucose 107 Calcium 9.4 Total Bilirubin 1.2 H AST 18 ALT 15 Alkaline Phosphatase 110 Ammonia Total Protein 6.9 Albumin 3.8 COVID-19 ([facility]) COVID-19 [email or web address] Com 07/12/21 07/12/21 16:52 16:52 MCV MCH MCHC RDW Plt Count MPV Immature Gran % (Auto) Neut % (Auto) Lymph % (Auto) [place] % (Auto) Eos % (Auto) Baso % (Auto) Lymph # (Auto) [place] # (Auto) Eos # (Auto) Baso # (Auto) Abs Immat Gran (auto) Absolute Neuts (auto) Absolute Nucleated RBC Nucleated RBC % (auto) PT INR D-Dimer Anion Gap Estim Creat Clear Calc Estimated GFR Random Glucose Calcium Total Bilirubin AST ALT Alkaline Phosphatase Ammonia 28 Total Protein Albumin COVID-19 ([facility]) Negative COVID-19 Clin Com See Note Imaging Radiologist's Impressions: Impressions Head CT 07/12/21 16:07 IMPRESSION: No acute intracranial pathology. Chest X-Ray 07/12/21 16:09 IMPRESSION: No evidence for acute disease in the chest. Assessment and Plan (1) Prostate CA: Status: Acute (2) Right hemiparesis: Status: Acute 70-year-old gentleman with multiple presentations to the ER for multiple neurological complaints most recently being right-sided hemiparesis preceded by severe frontal headache; all symptoms have since resolved. CT negative for acute pathology. Will be admitted for further workup and imaging 1. Transient right hemiparesis: Query TIA versus complex migraine. Will admit consult neurology and book carotids echo and MRI with and without contrast. Will add telemetry and monitor to rule out arrhythmias. Patient takes outpatient aspirin 81 mg will continue same 2. Prostate cancer: Follows with Dr. Maier. Continue outpatient therapies. Consult Dr. Maier only if issues arise 3. Full code. Donna ness Quality Stroke Does the patient have a stroke diagnosis?: No VTE Prior VTE?: No VTE Risk Level:: Medical - moderate - high VTE Device Contraindication: N/A - Device Ordered VTE Drug Contraindication: Treatment Not Indicated
[2021-07-12 19:25] VITALS: BP 143/82; PULSE 60; RESP 18; TEMP 36.6; O2SAT 97
--- NOTE | 2021-07-12 19:35 | MHC.CM.PN ---
CM met with admitted patient, with bed assignment pending. IMM reviewed and signed 07/12/2021@1915. HCP on file. HCP/ Florencia Tinajero ([phone]). Pt lives with . PCP is Dr. Eric Acosta at [facility] in [place]. Uses a cane and has no services. Pt has metastatic prostate CA, is on oral chemotherapy, and sees Dr. Maier. Pt's only complaint is that he tires easily. Pt is fully vaccinated with Moderna. D/C plan is home without services. Transportation by daughter, as his does not drive. CM to follow for d/c needs.
--- NOTE | 2021-07-12 19:43 | PC.NURSE ---
Pt alert and oriented x4, calm and cooperative. Pt states 5/10 headache, denies N/V, chest pain, or SOB. Pt denies dizziness at this time. IV intact. Vitals stable. Pt in MRI. Will continue to monitor.
[2021-07-12 20:00] VITALS: BP 135/82; PULSE 55; RESP 18; TEMP 36.5; O2SAT 97
--- NOTE | 2021-07-12 20:31 | PC.NURSE ---
Called to give report to ERNESTO Jones, waiting for call back.
[2021-07-12 21:52] VITALS: BMI 34.2
[2021-07-12 21:59] LABS: Appearance Urine CLEAR; Color Urine YELLOW; Glucose Urine UA NEG (NEG); Leukocyte Esterase Urine NEG (NEG); Nitrite Urine NEG (NEG); PH 5.5 (5.0-8.0); Specific Gravity - Urine 1.025 (1.005-1.025); Urine Blood NEG (NEG); Urine Ketones NEG (NEG); Urine Protein NEG (NEG-TRACE)
[2021-07-12 23:32] VITALS: BP 131/65; PULSE 54; RESP 18; TEMP 36.4; O2SAT 95
[2021-07-13 03:40] VITALS: BP 110/60; PULSE 55; RESP 18; TEMP 36.4; O2SAT 97
[2021-07-13] MEDS: Tamsulosin HCL 0.4 MG CAPSULE PO (07:42)
[2021-07-13] MEDS: Aspirin Enteric Coated 81 MG TABLET.DR PO (07:42)
[2021-07-13] MEDS: Atorvastatin Calcium 40 MG TABLET PO (07:43)
[2021-07-13 07:58] VITALS: BP 124/71; PULSE 52; RESP 20; TEMP 36.9; O2SAT 96
--- NOTE | 2021-07-13 11:17 | PM.NEUROCN ---
History of Present Illness Data of Consult Service Date: 07/13/21 Primary Care Provider: Unknown Physician HPI Reason for consult: Headache 70 years old man with metastatic prostate cancer started having headaches few months ago. Now headaches are happening about 2 to 3 times a week. Sometime it was lasting for couple of hours and sometime whole day. Pain was usually frontal. When it was severe it was about 8 or 9/10 in intensity and when mild it was about 2/10. Sometime he had associated symptoms such as numbness or weakness and he had been to emergency room with these symptoms and headaches. This time he came with some numbness on right side. He said that now headache was gone and the numbness was gone. Review of Systems Review of Systems: No recent cold or flu-like illness or trauma. [facility] Past Medical History Medical History Bladder tumor Bone cancer Elevated cholesterol Hematuria HTN (hypertension) Prostate CA Surgical History Surgical History H/O prostate biopsy History of cystoscopy Social History Social History Household Members: Spouse Housing: House Are you a primary personal care service provider to a significant other at home: No Do you presently have visiting nurse or other home services: Yes Alcohol intake: never Patient Tobacco Use Status: Never used Tobacco Second Hand Smoke Exposure: No Use of substances other than those prescribed or required for medical reasons: No Have you been hit, kicked, punched, or otherwise hurt by someone within the past year? If so, by whom?: No Do you feel safe in your current relationship?: Yes Is there a partner from a previous relationship who is making you feel unsafe now?: No Are you made to feel afraid or neglected: No Advance Directives: No Advance Directives Information Provided: No Do you have thoughts of harming others: None Do you have a plan to hurt others: No Plan Recently lost weight without trying: Yes How much weight loss: 2-13 pounds Eating poorly because of decreased appetite: No Nutrition screen score: 3 Nutrition Risks: No Nutritional Risk Poor oral hygiene: No service: No Current occupational status: retired Meds Allergies Allergy/AdvReac Type Severity Reaction Status Date / Time oxycodone [Percocet] AdvReac Intermediate face got Verified 04/12/21 12:56 really red Active Medications: Current Medications Acetaminophen (Acetaminophen 325 Mg Tablet) 650 mg PO Q6H PRN PRN Reason: Pain, Mild (Pain Scale 1-3) Aspirin (Aspirin Enteric Coated 81 Mg Tablet.Dr) 81 mg PO DAILY [facility] Last Admin: 07/13/21 07:42 Dose: 81 mg Documented by: Atorvastatin Calcium (Atorvastatin Calcium 40 Mg Tablet) 40 mg PO DAILY [facility] Last Admin: 07/13/21 07:43 Dose: 40 mg Documented by: Melatonin (Melatonin 3 Mg Tablet) 6 mg PO BEDTIME PRN PRN Reason: Insomnia Non-Formulary Medication (Xtandi) 80 mg PO BID@0800,1800 [facility] Ondansetron HCl (Ondansetron Hcl 4 Mg/2 Ml Vial) 4 mg IVPUSH Q8H PRN PRN Reason: Nausea and Vomiting Propranolol HCl (Propranolol Hcl La 80 Mg Cap.Sa.24h) 80 mg PO DAILY [facility]; Protocol Last Admin: 07/13/21 07:44 Dose: Not Given Documented by: Sodium Chloride (0.9 % Sodium Chloride Flush 3 Ml Syringe) 3 ml IVFLUSH QSHIFT [facility] Last Admin: 07/13/21 03:07 Dose: Not Given Documented by: Tamsulosin HCl (Tamsulosin Hcl 0.4 Mg Capsule) 0.4 mg PO DAILY [facility] Last Admin: 07/13/21 07:42 Dose: 0.4 mg Documented by: Home Medications Medication Instructions Recorded Confirmed Last Taken Type atorvastatin 40 mg tablet 1 tab PO BEDTIME 07/19/20 07/10/21 07/09/21 History aspirin 81 mg tablet,delayed 81 mg PO DAILY 12/07/20 07/10/21 07/10/21 History release cholecalciferol (vitamin D3) 50 1 cap PO DAILY 12/07/20 07/10/21 07/10/21 History mcg (2,000 unit) capsule riboflavin (vitamin B2) 100 mg 200 mg PO QAM 01/05/21 07/10/21 07/10/21 History tablet enzalutamide 40 mg capsule (Xtandi) 80 mg PO BID 05/14/21 07/10/21 07/10/21 History magnesium 200 mg tablet 400 mg PO BID 05/14/21 07/10/21 07/10/21 History tamsulosin 0.4 mg capsule 1 cap PO BID 07/10/21 07/10/21 07/10/21 History Physical Exam Vital Signs: Vital Signs: Last Vital Signs Temp 98.4 F 07/13/21 07:58 Pulse 52 07/13/21 07:58 Resp 20 07/13/21 07:58 BP 124/71 07/13/21 07:58 Pulse Ox 96 07/13/21 07:58 Body Mass Index 34.2 Neuro: Other: He was alert and awake with normal spontaneity of speech fluency comprehension and affect. Face was symmetrical. Visual trujillo are full. There was no obvious focal weakness. There was mild had mild hand tremor. Deep tendon reflexes were trace to absent with flexor plantars. Results Labs CBC & Chem 7: 07/12/21 16:52 07/12/21 16:52 Labs: Short CBC 07/12/21 Range/Units 16:52 WBC 8.2 (4.8-10.8) X10*3/uL Hgb 13.5 L (14.0-18.0) g/dl Hct 39.9 L (42-52) % Plt Count 230 (160-400) X10*3/uL BMP 07/12/21 16:52 Sodium 141 Potassium 5.1 Chloride 108 Carbon Dioxide 27 BUN 42 H Creatinine 1.37 Calcium 9.4 Liver Function 07/12/21 Range/Units 16:52 Total Bilirubin 1.2 H (0.0-1.0) mg/dL AST 18 (5-37) U/L ALT 15 (0-40) U/L Alkaline Phosphatase 110 (39-117) U/L Albumin 3.8 (3.5-5.0) g/dL Urine 07/12/21 Range/Units 21:47 Urine Color YELLOW Urine Appearance CLEAR Urine pH 5.5 (5.0-8.0) Ur Specific [place] 1.025 (1.005-1.025) Urine Protein NEG (NEG-TRACE) MG/DL Urine Glucose (UA) NEG (NEG) MG/DL His noncontrast head CT revealed moderate to severe chronic microvascular ischemic changes and mild atrophy. MRI of brain again reveals same findings with no acute lesion. Carotid ultrasound did not reveal any significant stenosis. Chest x-ray was okay. Assessment and Plan (1) Migraine equivalent syndrome: Status: Acute 70 years old man with migraine and migraine equivalent syndrome resulting in stroke-like symptoms. At this time headache was mostly resolved and symptoms were also resolved. With significant frequency and frequent visits to emergency room, and ongoing headaches in spite of taking a beta-rigoberto, I recommend starting him on topiramate 25 mg at night for headache control. (2) Cerebral microvascular disease: Status: Acute Control of vascular risk factors, anti-platelet agent and statin are recommended. This amount of microvascular disease and atrophy can result in cognitive difficulties or dementia. (3) Tremor: Status: Acute Not significant to prescribe any medicines Procedures Date of Service Date of Service: 07/13/21
[2021-07-13 11:31] VITALS: BP 128/79; PULSE 54; RESP 20; TEMP 36.6; O2SAT 97
--- NOTE | 2021-07-13 13:01 | P.DS_ITS ---
DS: Providers Provider Date of Service: 07/13/21 Date of admission: 07/12/21 19:08 Primary care physician: Unknown Physician Consults: 07/12/21 19:07 Consult to Neurology Routine Consulting Provider: [facility] Reason for consultation: TIA vs Complex Migraine DS: Diagnosis Discharge Diagnosis (1) Migraine equivalent syndrome: Status: Acute (2) Cerebral microvascular disease: Status: Acute (3) Tremor: Status: Acute DS: Summary Hospital Course Hospital Course: History of presenting illness 62-year-old male with history of metastatic prostate cancer presents today to ER with acute onset of headache accompanied by right-sided weakness.? He was seen in the ER CT scan negative for acute pathology; per ER MD symptoms resolve spontaneously.? In review of chart patient seen 05/14/2021 for a fall out of a chair that was preceded by a bad headache.? He was seen again 06/14/2021 for complaints of acute onset severe frontal headache blurred vision and bilateral lower extremity weakness.? Again workup was negative and he was discharged to home. He was seen and admitted for questionable syncopal episode.? Orthostatics studies were unremarkable CT was negative and labs were unremarkable.? It was thought his syncope was related to bradycardia related to his beta rigoberto use.? Today represents the 4th episode of abnormal neural presentations that have been preceded by headache.? Patient states that he has been told these may be complex migraines; this is the 1st episode of hemiparesis that resolved.? He will be admitted for further workup and Neuro consult.? In the ER, all his presenting symptoms have? resolved.? Hospital course 70-year-old gentleman with past medical history of metastatic prostate cancer , recently discharged from [facility] after an episode of vasovagal syncope, presented to [facility] due to symptoms of headache and right upper extremity numbness, workup in the ER including CT scan was negative but due to recurrent presentation to the ER as well as acute worsening of headache with history of metastatic prostate cancer patient was admitted to [facility] close neurological monitoring, during his stay in the hospital patient did not have any neuro deficit all his neurological symptoms were resolved and MRI study showed no evidence of acute CVA or mass patient was noted to have significant underlying microangiopathy, patient seen by Dr. Roth and he has been diagnosed to have complex migraine patient has been placed on Topamax 25 mg at bedtime, patient is on aspirin and Lipitor with high risk of acute stroke since patient is hemodynamically stable he is being discharged home and has been recommended to continue all home medications as before. Time Spent with Patient Time attestation: Total time spent providing and/or coordinating discharge services: Discharge coordination time: Greater than 30 minutes Quality: Stroke Does the patient have a stroke diagnosis?: No Physical Exam Vital Signs: Vital Signs: Last Vital Signs Temp 97.8 F 07/13/21 11:31 Pulse 54 07/13/21 11:31 Resp 20 07/13/21 11:31 BP 128/79 07/13/21 11:31 Pulse Ox 97 07/13/21 11:31 Body Mass Index 34.2 General alert oriented x3, no acutedistress.? Neck is?supple no JVD. CVS? regular rate rhythm, systolic mur Respiratory lungs clear to auscultation, no respiratory distress, no?wheeze, no rhonchi. Gastrointestinal abdomen soft, obese, nontender, bowel sounds audible, no guarding , no?rigidity. Extremities no clubbing cyanosis or edema. Neuro nonfocal, moving all 4 extremity, speech clear. Skin no rash Psych?Appropriate affect Musculoskeletal no deformity DS: Data Data Completed and Pending Labs on day of discharge: Laboratory Results - last 24 hr 07/12/21 07/12/21 07/12/21 16:52 16:52 16:52 WBC 8.2 RBC 4.09 L Hgb 13.5 L Hct 39.9 L MCV 97.6 MCH 33.0 MCHC 33.8 RDW 13.3 Plt Count 230 MPV 9.8 Immature Gran % (Auto) 0.1 Neut % (Auto) 55.5 Lymph % (Auto) 33.3 [place] % (Auto) 8.4 Eos % (Auto) 2.2 Baso % (Auto) 0.5 Lymph # (Auto) 2.7 [place] # (Auto) 0.7 Eos # (Auto) 0.2 Baso # (Auto) 0.0 Abs Immat Gran (auto) 0.01 Absolute Neuts (auto) 4.6 Absolute Nucleated RBC 0.000 Nucleated RBC % (auto) 0.0 PT 10.1 INR 0.9 D-Dimer < 200 Sodium 141 Potassium 5.1 Chloride 108 Carbon Dioxide 27 Anion Gap 11 L BUN 42 H Creatinine 1.37 Estim Creat Clear Calc 59.7 Estimated GFR 52 Random Glucose 107 Calcium 9.4 Total Bilirubin 1.2 H AST 18 ALT 15 Alkaline Phosphatase 110 Ammonia Total Protein 6.9 Albumin 3.8 Urine Color Urine Appearance Urine pH Ur Specific [place] Urine Protein Urine Glucose (UA) Urine Ketones Urine Blood Urine Nitrite Ur Leukocyte Esterase COVID-19 ([facility]) COVID-19 Clin Com 07/12/21 07/12/21 07/12/21 16:52 16:52 21:47 WBC RBC Hgb Hct MCV MCH MCHC RDW Plt Count MPV Immature Gran % (Auto) Neut % (Auto) Lymph % (Auto) [place] % (Auto) Eos % (Auto) Baso % (Auto) Lymph # (Auto) [place] # (Auto) Eos # (Auto) Baso # (Auto) Abs Immat Gran (auto) Absolute Neuts (auto) Absolute Nucleated RBC Nucleated RBC % (auto) PT INR D-Dimer Sodium Potassium Chloride Carbon Dioxide Anion Gap BUN Creatinine Estim Creat Clear Calc Estimated GFR Random Glucose Calcium Total Bilirubin AST ALT Alkaline Phosphatase Am[place] 28 Total Protein Albumin Urine Color YELLOW Urine Appearance CLEAR Urine pH 5.5 Ur Specific [place] 1.025 Urine Protein NEG Urine Glucose (UA) NEG Urine Ketones NEG Urine Blood NEG Urine Nitrite NEG Ur Leukocyte Esterase NEG COVID-19 ([facility]) Negative COVID-19 Clin Com See Note Discharge Plan Discharge Patient Disposition: Home, Self-Care Discharge Diagnosis: Migraine syndrome Transient neurological deficit Cerebral microvascular disease Referrals: Physician,Unknown [Primary Care Provider] - 1 Week Discharge Medications: New topiramate 25 mg Tablet 25 mg PO BEDTIME Qty: 30 RF: 0 Continued cholecalciferol (vitamin D3) 50 mcg (2,000 unit) capsule 1 cap PO DAILY RF: 0 aspirin 81 mg Tablet,Delayed Release (Dr/Ec) 81 mg PO DAILY RF: 0 Xtandi 40 mg capsule 80 mg PO BID RF: 0 magnesium 200 mg Tablet 400 mg PO BID RF: 0 atorvastatin 40 mg tablet 1 tab PO BEDTIME RF: 0 tamsulosin 0.4 mg capsule 1 cap PO BID RF: 0 propranolol 60 mg capsule,extended release 24 hr 60 mg PO DAILY Qty: 30 RF: 0 Discharge Orders: Discharge Order (Routine); Ordered 07/13/21 Ordered By: Mitra Bran Diet: low fat, low cholesterol Activity on Discharge: As tolerated Stand Alone Forms: Patient Portal Discharge page Care Plan Goals: Complex migraine is start using Topamax 25 mg at bedtime return to check with any worsening symptoms of weakness numbness or worsening headache. Health Concerns: Bladder and prostate CA continue all home medication Plan of Treatment: Outpatient follow-up with PCP and Urology in next 1-2 weeks Assessment: as above
--- NOTE | 2021-07-13 13:15 | MHC.CM.PN ---
IMM 07/12/21 Male 70 DX TIA. He is discharged today to home. No services have been ordered. Family is proving transportation to home.
== END 2021-07-13 15:18 | disposition home or self-care (01) | DRG 103 ==
LOC: HO.ED 18:14 → HO.IMC 19:51
PROVIDERS: Admitting Provider Hospitalist; Emergency Provider Emergency Medicine; Visit Provider Hospitalist
DX: G43.909 Migraine, unspecified, not intractable, without status migrainosus (principal); G81.91 Hemiplegia, unspecified affecting right dominant side; I67.9 Cerebrovascular disease, unspecified; C61 Malignant neoplasm of prostate; Z20.822 Contact with and (suspected) exposure to COVID-19; Z88.5 Allergy status to narcotic agent; Z79.82 Long term (current) use of aspirin; Z79.899 Other long term (current) drug therapy
CPT/HCPCS: 36415; 70450; 70553; 71046; 80053; 81003; 82140; 85025; 85379; 85610; 87635; 93005; 93880; 99285; A9585; J1170; J2405

== ENCOUNTER 2021-08-11 10:17 | Outpatient (REF) | payer MEDICARE, SELFPAY ==
[2021-08-12 14:31] LABS: Urine Cytology See Pathology rpt
== END 2021-08-11 10:18 | disposition home or self-care (01) ==
LOC: HO.LAB 10:17
PROVIDERS: PCP Family Medicine; Visit Provider Urology
DX: C61 Malignant neoplasm of prostate (principal); C79.51 Secondary malignant neoplasm of bone; C67.1 Malignant neoplasm of dome of bladder; M85.80 Other specified disorders of bone density and structure, unspecified site
CPT/HCPCS: 52000; 88112; 99212

== ENCOUNTER 2021-08-29 07:59 | Emergency (ER) | payer MEDICARE, SELFPAY ==
--- NOTE | ~2021-08-29 | CT_ITS ---
EXAMINATION: CT CERVICAL SPINE WITHOUT CONTRAST CLINICAL INFORMATION: Fall 2 days ago COMPARISON: None TECHNIQUE: Axial images through the cervical spine without contrast. Sagittal and coronal reconstructions on the technologist workstation were performed. This CT examination was performed using dose optimization techniques as appropriate, variously including the following: *Automated exposure control *Adjustment of mA and/or kV according to patient size (this includes techniques or standardized protocols for targeted exams where dose is matched to indication/reason for exam; i.e. extremities or head) *Use of iterative reconstruction technique DLP: 632 mGy-cm FINDINGS: Bone alignment is normal. No fracture or dislocation is seen. There is spondylosis and degenerative disc disease from C3-C4 and C6-C7. Prevertebral soft tissues are normal. Visualized lung apices are clear. CT/CT cervical spine wo con IMPRESSION: Degenerative changes. No fracture or dislocation seen.
--- NOTE | ~2021-08-29 | CT_ITS ---
EXAMINATION: CT HEAD WITHOUT CONTRAST CLINICAL INFORMATION: Trauma. Fall 2 days ago. COMPARISON: Previous head CT most recent June 2021 TECHNIQUE: Contiguous axial imaging was performed from the skull base to vertex without intravenous administration of contrast. This CT examination was performed using dose optimization techniques as appropriate, variously including the following: *Automated exposure control *Adjustment of mA and/or kV according to patient size (this includes techniques or standardized protocols for targeted exams where dose is matched to indication/reason for exam; i.e. extremities or head) *Use of iterative reconstruction technique DLP: 963 mGy-cm FINDINGS: There is no evidence of an extra-axial collection. There is no evidence of intra or extra-axial hemorrhage. The ventricles and extra-axial CSF spaces are prominent suggestive of mild generalized atrophy. There is nonspecific periventricular white matter disease. No mass, mass effect or infarct is seen. No skull fracture is seen. There is mild membranous soft tissue thickening seen in the floor of the maxillary sinuses, left greater than right. Visualized paranasal sinuses, mastoid air cells and middle ears are otherwise clear. CT/CT head/brain wo con IMPRESSION: No acute findings. Generalized atrophy and nonspecific periventricular white matter disease similar to previous exams.
[2021-08-29 08:10] VITALS: BP 142/80; PULSE 65; O2SAT 98
[2021-08-29 08:14] VITALS: BP 144/80; PULSE 65; RESP 18; TEMP 36.6; O2SAT 94; BMI 29.9
--- NOTE | 2021-08-29 08:15 | ECG_ITS ---
Test Reason : FALL Blood Pressure : / mmHG Vent. Rate : 060 BPM Atrial Rate : 060 BPM P-R Int : 150 ms QRS Dur : 102 ms QT Int : 438 ms P-R-T Axes : -03 -66 006 degrees QTc Int : 438 ms Normal sinus rhythm Left axis deviation Poor R wave progression Left anterior fascicular block Abnormal ECG When compared with ECG of 12-JUL-2021 16:39, No significant change was found Referred By: Kanu Lan Electronically Signed By:DIPAK BROWNLEE MD
--- NOTE | 2021-08-29 08:21 | ED.GENADULT ---
HPI - General Adult General Chief complaint: General Medical Stated complaint: FALL SUNDAY, BACK & HEAD PAIN W/DIZZINESS TODAY Time Seen by Provider: 08/29/21 08:15 Source: patient and EMS Mode of arrival: EMS Limitations: no limitations History of Present Illness HPI narrative: This is a 71 years old male presented to the emergency department by ambulance with chief complaining of a headache and dizziness. He states that he fell on Sunday he was at the soccer game , the fall was mechanical, he he missed 1 of the steps, he states that he hit his head, he states that he was okay yesterday Sunday and then this morning when to the bathrom felt dizzy nad had headache. he arrived by ambulance with C-collar on. The patient has also history of dizziness and he took 25 mg of meclizine just before the ambulance arrived. Patient was also history of metastatic bladder cancer. To be noted that had an MRI a couple a month ago which was normal Onset (ago): day(s) (3) Location: head Radiation: non-radiation Severity: moderate Quality: aching Pain Consistency: constant Relieving factors: none Exacerbating factors: none Associated symptoms: denies other symptoms Related Data Home Medications Medication Instructions Recorded Confirmed atorvastatin 40 mg tablet 1 tab PO BEDTIME 07/19/20 07/10/21 aspirin 81 mg tablet,delayed 81 mg PO DAILY 12/07/20 07/10/21 release cholecalciferol (vitamin D3) 50 1 cap PO DAILY 12/07/20 07/10/21 mcg (2,000 unit) capsule riboflavin (vitamin B2) 100 mg 200 mg PO QAM 01/05/21 07/10/21 tablet enzalutamide 40 mg capsule (Xtandi) 80 mg PO BID 05/14/21 07/10/21 magnesium 200 mg tablet 400 mg PO BID 05/14/21 07/10/21 tamsulosin 0.4 mg capsule 1 cap PO BID 07/10/21 07/10/21 propranolol 80 mg capsule,24 80 mg PO DAILY 08/11/21 hr,extended release Previous Rx's Medication Instructions Recorded propranolol 60 mg capsule,24 60 mg PO DAILY #30 cap 07/11/21 hr,extended release topiramate 25 mg tablet 25 mg PO BEDTIME #30 tab 07/13/21 Allergies Allergy/AdvReac Type Severity Reaction Status Date / Time oxycodone [Percocet] AdvReac Intermediate face got Verified 08/11/21 10:25 really red Review of Systems Review of Systems: Yes all other systems are reviewed and are negative Constitutional: Constitutional: Denies fever(s) and Reports headache(s) ENT: Reports dizziness and Reports headache(s) Cardiovascular: Cardiovascular: Denies Loss of Consciousness, Denies dyspnea and Denies dyspnea on exertion Respiratory: Respiratory: Reports no additional respiratory complaints, Denies dyspnea and Denies dyspnea on exertion Musculoskeletal: Musculoskeletal: Reports no additional musculoskeletal complaints Neurologic: Reports dizziness and Reports headache(s) [facility] Past Medical History Medical History Bladder cancer Bladder tumor Bone cancer Cerebral microvascular disease Elevated cholesterol Hematuria HTN (hypertension) Prostate CA Tremor Surgical History H/O prostate biopsy History of cystoscopy Social History Social History Household Members: Spouse Housing: House Are you a primary hospice home care coordinator to a significant other at home: No Do you presently have visiting nurse or other home services: Yes Alcohol intake: never Patient Tobacco Use Status: Never used Tobacco Second Hand Smoke Exposure: No Advance Directives: No Advance Directives Information Provided: No service: No Current occupational status: retired Physical Exam Vital Signs: Vital Signs: Last Vital Signs Temp 98 F 08/29/21 08:14 Pulse 77 08/29/21 11:07 Resp 19 08/29/21 11:07 BP 144/78 H 08/29/21 11:07 Pulse Ox 97 08/29/21 11:07 Body Mass Index 29.9 Const: General: cooperative, comfortable, no acute distress, well developed, alert and awake HENMT: Head: Yes normal to inspection Ears: hearing grossly normal bilaterally Face and sinus: Yes normal facial exam Mouth: Normal oral and palatal mucosa present Eyes: General: appearance normal, both eyes and all related structures Conjunctivae: conjunctivae normal EOM: EOMs intact bilaterally Neck: Neck: Yes no lymphadenopathy, Yes no meningeal signs, Yes trachea midline and No anterior neck swelling Chest: Chest palpation & inspection: normal inspection of the chest Resp: Effort & Inspection: normal respiratory effort Auscultation: clear to auscultation bilaterally Cardio: Jugular venous distension: no JVD Palpation: normal PMI Rate: regular rate Rhythm: regular rhythm GI: Inspection: Yes normal to inspection Palpation (GI): Soft to palpation, not firm, nontender and no guarding Skin: General skin exam: no rashes or lesions noted, elasticity normal and turgor normal Neuro: General: no meningeal signs Course Reevaluation(s) Reevaluation #1: Patient is feeling better dizziness is much better at this time, the patient was ambulated in the hallway by nurse Guilherme and he did very well. I do not think we need to do any further workup for his dizziness, patient tells me that he had dizziness in in the past which he describes as vertigo so at this point is ambulating well,he is feeling better we will discharge the patient home a Medical Decision Making Lab Data Result diagrams: 08/29/21 08:29 08/29/21 08:29 Labs: Lab Results 08/29/21 08/29/21 08/29/21 Range/Units 08:29 08:29 08:29 WBC 5.9 (4.8-10.8) X10*3/uL RBC 4.13 L (4.60-5.80) X10*6/uL Hgb 13.4 L (14.0-18.0) g/dl Hct 40.5 L (42.0-52.0) % MCV 98.1 H (80.0-98.0) fL MCH 32.4 (27.0-33.0) pg MCHC 33.1 (31.0-36.0) g/dl RDW 14.2 (11.0-16.0) % Plt Count 244 (160-400) X10*3/uL MPV 10.3 (9.4-12.4) fL Immature Gran % (Auto) 0.2 (0.0-0.4) % Neut % (Auto) 49.6 (45-73) % Lymph % (Auto) 38.9 (20-40) % Barber % (Auto) 8.3 (2-11) % Eos % (Auto) 2.0 (0-4) % Baso % (Auto) 1.0 (0-2) % Lymph # (Auto) 2.3 (1.2-4.9) X10*3/uL Barber # (Auto) 0.5 (0.1-1.2) X10*3/uL Eos # (Auto) 0.1 (0.0-0.4) X10*3/uL Baso # (Auto) 0.1 (0.0-0.2) X10*3/uL Abs Immat Gran (auto) 0.01 (0.00-0.03) X10*3/uL Absolute Neuts (auto) 2.9 (2.0-8.3) x10*3/uL Absolute Nucleated RBC 0.000 (0.0-0.012) X10*3/uL Nucleated RBC % (auto) 0.0 (0.0-0.2) /100WBC Sodium 141 (135-145) mmol/L Potassium 4.6 (3.3-5.1) mmol/L Chloride 109 H (96-108) mmol/L Carbon Dioxide 26 (22-29) mmol/L Anion Gap 11 L (12-20) BUN 30 H (9-16) mg/dL Creatinine 1.40 (0.5-1.4) mg/dL Estim Creat Clear Calc 60.9 Estimated GFR 50 Random Glucose 105 (60-115) mg/dL Calcium 9.4 (8.4-10.2) mg/dL Total Bilirubin 1.2 H (0.0-1.0) mg/dL AST 20 (5-37) U/L ALT 18 (0-40) U/L Alkaline Phosphatase 100 (39-117) U/L Troponin I High Sens < 3.5 (<3.5-35.0) ng/L Total Protein 6.7 (6.5-8.0) g/dL Albumin 3.8 (3.5-5.0) g/dL Imaging Data ct head: Attestation: I personally reviewed and interpreted this imaging study as follows: Radiologist's impression: *Adjustment of mA and/or kV according to patient size (this includes techniques or standardized protocols for targeted exams where dose is matched to indication/reason for exam; i.e. extremities or head) *Use of iterative reconstruction technique DLP: 963 mGy-cm FINDINGS: There is no evidence of an extra-axial collection. There is no evidence of intra or extra-axial hemorrhage. The ventricles and extra-axial CSF spaces are prominent suggestive of mild generalized atrophy. There is nonspecific periventricular white matter disease. No mass, mass effect or infarct is seen. No skull fracture is seen.? There is mild membranous soft tissue thickening seen in the floor of the maxillary sinuses, left greater than right. Visualized paranasal sinuses, mastoid air cells and middle ears are otherwise clear. ? CT/CT head/brain wo con IMPRESSION: No acute findings. Generalized atrophy and nonspecific periventricular white matter disease similar to previous exams. Dictated By: Yaz Machado MD Signed By: <Electronically signed by Yaz Machado MD in OV> 08/29/21937 DD/ 4 TD/TT:? Database Design Analyst: VLAD ECG Data Attestation: I personally reviewed and interpreted this ECG as follows: Pacemaker model: NSR 60 no ischemic changes Discharge Plan Discharge Clinical Impression: Dizziness, Head ache Patient Disposition: Home, Self-Care Instructions: Dizziness (ED) Additional Instructions: Please follow-up with your primary care physician return to the emergency department if you worse any concern Prescriptions: No Action cholecalciferol (vitamin D3) 50 mcg (2,000 unit) capsule 1 cap PO DAILY RF: 0 aspirin 81 mg Tablet,Delayed Release (Dr/Ec) 81 mg PO DAILY RF: 0 Xtandi 40 mg capsule 80 mg PO BID RF: 0 magnesium 200 mg Tablet 400 mg PO BID RF: 0 atorvastatin 40 mg tablet 1 tab PO BEDTIME RF: 0 tamsulosin 0.4 mg capsule 1 cap PO BID RF: 0 propranolol 60 mg capsule,extended release 24 hr 60 mg PO DAILY Qty: 30 RF: 0 topiramate 25 mg Tablet 25 mg PO BEDTIME Qty: 30 RF: 0 Referrals: Eric Dinh MD [Primary Care Provider] - 2 days Interventions: ED Discharge Assessment Last Done: 08/29/21 11:07 Discharge Date/Time: 08/29/21 11:08
[2021-08-29 08:33] LABS: MANUAL DIFF FLAG NO
[2021-08-29] MEDS: diazePAM 5 MG TABLET PO (08:33)
[2021-08-29 08:43] LABS: Basophils Absolute Auto 0.1 X10*3/uL (0.0-0.2); Eosinophils Absolute Auto 0.1 X10*3/uL (0.0-0.4); Hematocrit 40.5 % (42.0-52.0); Hemoglobin 13.4 g/dl (14.0-18.0); Imm Gran Abs Auto 0.01 X10*3/uL (0.00-0.03); Imm Gran Pct Auto 0.2 % (0.0-0.4); Lymphocytes Absolute Auto 2.3 X10*3/uL (1.2-4.9); Lymphocytes Percent Auto 38.9 % (20-40); Mean Corpuscular HGB Conc 33.1 g/dl (31.0-36.0); Mean Corpuscular Hemoglobin 32.4 pg (27.0-33.0); Mean Corpuscular Volume 98.1 fL (80.0-98.0); Mean Platelet Volume 10.3 fL (9.4-12.4); Monocytes Absolute Auto 0.5 X10*3/uL (0.1-1.2); Monocytes Percent Auto 8.3 % (2-11); Neutrophils Absolute Auto 2.9 x10*3/uL (2.0-8.3); Neutrophils Percent Auto 49.6 % (45-73); Platelet Count 244 X10*3/uL (160-400); Red Blood Count 4.13 X10*6/uL (4.60-5.80); Red Cell Distribution Width 14.2 % (11.0-16.0); White Blood Count 5.9 X10*3/uL (4.8-10.8)
[2021-08-29 08:51] LABS: Alanine Aminotransferase 18 U/L (0-40); Albumin Level 3.8 g/dL (3.5-5.0); Alkaline Phosphatase 100 U/L (39-117); Anion Gap 11 (12-20); Aspartate Amino Transferase 20 U/L (5-37); Bilirubin Total 1.2 mg/dL (0.0-1.0); Blood Urea Nitrogen 30 mg/dL (9-16); Calcium 9.4 mg/dL (8.4-10.2); Carbon Dioxide 26 mmol/L (22-29); Chloride 109 mmol/L (96-108); Creatinine Clr Calc Pharmacy 60.9; Estimated Glomerular Filt Rate 50; Glucose Random 105 mg/dL (60-115); Potassium 4.6 mmol/L (3.3-5.1); Sodium 141 mmol/L (135-145); Total Protein 6.7 g/dL (6.5-8.0)
[2021-08-29 08:53] LABS: Troponin-I High Sensitivity < 3.5 ng/L (<3.5-35.0)
[2021-08-29 11:07] VITALS: BP 144/78; PULSE 77; RESP 19; O2SAT 97
== END 2021-08-29 11:08 | disposition home or self-care (01) ==
PROVIDERS: Emergency Provider Emergency Medicine; PCP Family Medicine
DX: R51.9 Headache, unspecified (principal); R42 Dizziness and giddiness; I10 Essential (primary) hypertension; Z91.81 History of falling
CPT/HCPCS: 36415; 70450; 72125; 80053; 84484; 85025; 93005; 99284

== ENCOUNTER 2021-10-10 18:02 | Emergency (ER) | payer MEDICARE, SELFPAY ==
[2021-10-10 18:21] VITALS: BP 139/73; BP 156/95; PULSE 84; PULSE 92; RESP 18; TEMP 36.9; O2SAT 97; BMI 31.1
--- NOTE | 2021-10-10 20:04 | ED.GENADULT ---
HPI - General Adult General Chief complaint: Seizure Stated complaint: MULTIPLE NEAR SYNCOPAL EPISODES PER EMSS Time Seen by Provider: 10/10/21 19:48 Source: patient Mode of arrival: EMS Limitations: no limitations History of Present Illness HPI narrative: 71-year-old male who presents emergency department for evaluation of headache, dizziness and staring spells. The patient states that he was eating dinner at around 3:00 p.m.. He states he then developed a headache which he describes as a throbbing sensation in the frontal part of his head. The headache was 8/10. He states that he felt weak. He also states that he felt dizzy which she describes as a slight spinning sensation. He then stared off into space. He states that he was aware of staring but was not aware of what he was looking at. This symptom lasted approximately 2-3 minutes. Patient states that he gets 3 or 4 of these episodes per day. The patient was seen in the emergency department on 08/29/2021 for dizziness and a fall. At that time he had a CT scan of the brain which revealed no acute fracture. The patient was hospitalized on 07/13/2021 for a brain TIA and had a neurology consult by Dr. Roth. Dr. 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 Patient was already taking a beta-rigoberto for his migraine headaches and he was started on topiramate 25 mg at night. The patient states that since starting this medication he has not had any reduction of the number of migraines that he has been getting. The patient had an MRI of the brain on 07/12/2021 which revealed significant microangiopathy with moderate volume loss but no other acute abnormalities. Related Data Home Medications Medication Instructions Recorded Confirmed atorvastatin 40 mg tablet 1 tab PO BEDTIME 07/19/20 07/10/21 aspirin 81 mg tablet,delayed 81 mg PO DAILY 12/07/20 07/10/21 release cholecalciferol (vitamin D3) 50 1 cap PO DAILY 12/07/20 07/10/21 mcg (2,000 unit) capsule riboflavin (vitamin B2) 100 mg 200 mg PO QAM 01/05/21 07/10/21 tablet enzalutamide 40 mg capsule (Xtandi) 80 mg PO BID 05/14/21 07/10/21 magnesium 200 mg tablet 400 mg PO BID 05/14/21 07/10/21 tamsulosin 0.4 mg capsule 1 cap PO BID 07/10/21 07/10/21 propranolol 80 mg capsule,24 80 mg PO DAILY 08/11/21 hr,extended release Previous Rx's Medication Instructions Recorded propranolol 60 mg capsule,24 60 mg PO DAILY #30 cap 07/11/21 hr,extended release topiramate 25 mg tablet 25 mg PO BEDTIME #30 tab 07/13/21 metoclopramide HCl 10 mg tablet 10 mg PO Q6H PRN #14 tab 10/10/21 (Reglan) topiramate 50 mg tablet 50 mg PO BEDTIME #30 tab 10/10/21 Allergies Allergy/AdvReac Type Severity Reaction Status Date / Time oxycodone [Percocet] AdvReac Intermediate face got Verified 08/11/21 10:25 really red Review of Systems Review of Systems: Yes all other systems are reviewed and are negative [facility] Past Medical History [facility] Narrative: Social history: The patient lives at home with his and family. Denies tobacco use. He denies alcohol use. He denies drug use. Medical History Bladder cancer Bladder tumor Bone cancer Cerebral microvascular disease Elevated cholesterol Hematuria HTN (hypertension) Prostate CA Tremor Surgical History H/O prostate biopsy History of cystoscopy Social History Social History Household Members: Spouse Housing: House Are you a primary residential care facility manager to a significant other at home: No Do you presently have visiting nurse or other home services: Yes Alcohol intake: never Patient Tobacco Use Status: Never used Tobacco Second Hand Smoke Exposure: No Advance Directives: No Advance Directives Information Provided: Yes service: No Current occupational status: retired Physical Exam Vital Signs: Vital Signs: Last Vital Signs Temp 98.4 F 10/10/21 18:21 Pulse 84 10/10/21 18:21 Resp 18 10/10/21 18:21 BP 156/95 H 10/10/21 18:21 Pulse Ox 97 10/10/21 18:21 BMI result Body Mass Index 31.1 Const: General: cooperative and no acute distress Orientation/consciousness: oriented to person and oriented to place Limitations: no limitations HENMT: Head: Yes normal to inspection, Yes normocephalic and Yes atraumatic Ears: external ears normal General nose exam: Normal external nose present Face and sinus: Yes normal facial exam Mouth: Normal oral and palatal mucosa present Throat: Yes posterior oropharynx normal Eyes: General: appearance normal, both eyes and all related structures Pupils: Equal, round and reactive pupils present Neck: Neck: Yes normal visual inspection, Yes no lymphadenopathy, Yes trachea midline and Yes supple Chest: Chest palpation & inspection: normal inspection of the chest and normal palpation of entire chest wall Resp: Effort & Inspection: normal respiratory effort and able to speak in complete sentences Auscultation: clear to auscultation bilaterally Cardio: Rate: regular rate Rhythm: regular rhythm Heart sounds: S1 normal heart sound present, S2 normal heart sound present and no murmurs GI: Inspection: Yes normal to inspection Palpation (GI): Soft to palpation, nontender and no guarding Auscultation: normal bowel sounds : General: Yes no CVA tenderness Back/Spine/Pelvis: Back: no CVA tenderness Skin: General skin exam: no rashes or lesions noted Neuro: General: oriented to person and oriented to place Cranial nerves: Yes CN's II-XII intact bilaterally and Yes Equal, round and reactive pupils present Cognition (Neuro): normal cognition Motor exam (neuro): 5/5 motor strength present throughout Extrem: General: Yes normal to inspection Psych: Appearance: grossly normal Speech and movement: Normal speech and movement present Affect: normal affect Attitude: cooperative Thought process: Normal thought process present Thought content: Normal thought content present Course Course Course Narrative: 71-year-old male who presents emergency department for evaluation of headache, dizziness and an episode of staring that occurred while he was eating dinner at 5:00 p.m. today. The patient states that he gets 3-4 of these episodes per day. The patient was hospitalized 07/13/2021 for possible TIA and was felt to have a migraine syndrome with stroke like symptoms and started on topiramate 25 mg at night with no reduction in the number migraine headaches these been getting. At the time my evaluation the patient states that he is having a throbbing headache located in the frontal part of his head which is 8/10. His exam is otherwise unremarkable. I ordered a laboratory evaluation includes CBC, troponin. Patient was ordered to get Toradol 15 mg IV, Reglan 10 mg IV and Benadryl 25 mg IV for his migraine headache. 2253: Patient's laboratory evaluation was unremarkable. The patient did get complete relief of his headache with the above regimen. At this time, I believe that the patient's symptoms are related to his migraine syndrome and I did discuss this with him. I will increase the patient's topiramate to 50 mg at night. He will also be started on the following migraine regimen: Excedrin migraine 1 pill, Benadryl 25 mg and Reglan 10 mg every 6 hours as needed for migraine headaches. The patient was advised to follow-up with his PCP and with his neurologist for re-evaluation. Patient was given printed and verbal instructions and discharged home. Medical Decision Making Lab Data Result diagrams: 10/10/21 21:03 10/10/21 21:03 Labs: Lab Results 10/10/21 10/10/21 Range/Units 21:03 21:03 WBC 8.0 (4.8-10.8) X10*3/uL RBC 4.44 L (4.60-5.80) X10*6/uL Hgb 14.4 (14.0-18.0) g/dl Hct 43.7 (42.0-52.0) % MCV 98.4 H (80.0-98.0) fL MCH 32.4 (27.0-33.0) pg MCHC 33.0 (31.0-36.0) g/dl RDW 13.4 (11.0-16.0) % Plt Count 231 (160-400) X10*3/uL MPV 10.3 (9.4-12.4) fL Immature Gran % (Auto) 0.3 (0.0-0.4) % Neut % (Auto) 76.1 H (45-73) % Lymph % (Auto) 15.3 L (20-40) % Grimes % (Auto) 6.8 (2-11) % Eos % (Auto) 1.0 (0-4) % Baso % (Auto) 0.5 (0-2) % Lymph # (Auto) 1.2 (1.2-4.9) X10*3/uL Grimes # (Auto) 0.5 (0.1-1.2) X10*3/uL Eos # (Auto) 0.1 (0.0-0.4) X10*3/uL Baso # (Auto) 0.0 (0.0-0.2) X10*3/uL Abs Immat Gran (auto) 0.02 (0.00-0.03) X10*3/uL Absolute Neuts (auto) 6.1 (2.0-8.3) x10*3/uL Absolute Nucleated RBC 0.000 (0.0-0.012) X10*3/uL Nucleated RBC % (auto) 0.0 (0.0-0.2) /100WBC Troponin I High Sens < 3.5 (<3.5-35.0) ng/L Discharge Plan Discharge Clinical Impression: Migraine Patient Disposition: Home, Self-Care Instructions: Migraine Headache (ED) Additional Instructions: At this time, I believe that your symptoms are being caused by your migraine headache syndrome. I am increasing her topiramate from 25 mg at night to 50 mg at night to see if this reduces the number of episodes of headaches that you get per week. I want you to take the following 3 medications together every 6 hours as needed for your migraine headache, nausea or vomiting. Reglan (metoclopramide) in 10 mg, 1 pill Benadryl 25 mg, 1 pills Excedrin migraine, 1 pills. After you take these medications, lie down in a dark quiet room and try to fall asleep. These medications will make you sleepy, do not drive or work after taking these medications. Follow-up with your doctor in 2 days. Please return to the emergency department if your symptoms get worse or if you develop any symptoms that are concerning to you. Prescriptions: New topiramate 50 mg tablet 50 mg PO BEDTIME Qty: 30 RF: 0 metoclopramide HCl [Reglan] 10 mg tablet 10 mg PO Q6H PRN (Reason: headaches,nausea, vomiting) Qty: 14 RF: 0 No Action cholecalciferol (vitamin D3) 50 mcg (2,000 unit) capsule 1 cap PO DAILY RF: 0 aspirin 81 mg Tablet,Delayed Release (Dr/Ec) 81 mg PO DAILY RF: 0 Xtandi 40 mg capsule 80 mg PO BID RF: 0 magnesium 200 mg Tablet 400 mg PO BID RF: 0 atorvastatin 40 mg tablet 1 tab PO BEDTIME RF: 0 tamsulosin 0.4 mg capsule 1 cap PO BID RF: 0 propranolol 60 mg capsule,extended release 24 hr 60 mg PO DAILY Qty: 30 RF: 0 topiramate 25 mg Tablet 25 mg PO BEDTIME Qty: 30 RF: 0
[2021-10-10] MEDS: Ketorolac Tromethamine 30 MG/ML VIAL 15 MG IVPUSH (21:07)
[2021-10-10 21:08] LABS: MANUAL DIFF FLAG NO
[2021-10-10] MEDS: Metoclopramide HCl 10 MG/2 ML VIAL IVPUSH (21:08)
[2021-10-10] MEDS: diphenhydrAMINE HCL 50 MG/ML VIAL 25 MG IVPUSH (21:09)
[2021-10-10 21:12] LABS: Basophils Percent Auto 0.5 % (0-2); Eosinophils Absolute Auto 0.1 X10*3/uL (0.0-0.4); Hematocrit 43.7 % (42.0-52.0); Hemoglobin 14.4 g/dl (14.0-18.0); Imm Gran Abs Auto 0.02 X10*3/uL (0.00-0.03); Imm Gran Pct Auto 0.3 % (0.0-0.4); Lymphocytes Absolute Auto 1.2 X10*3/uL (1.2-4.9); Lymphocytes Percent Auto 15.3 % (20-40); Mean Corpuscular Hemoglobin 32.4 pg (27.0-33.0); Mean Corpuscular Volume 98.4 fL (80.0-98.0); Mean Platelet Volume 10.3 fL (9.4-12.4); Monocytes Absolute Auto 0.5 X10*3/uL (0.1-1.2); Monocytes Percent Auto 6.8 % (2-11); Neutrophils Absolute Auto 6.1 x10*3/uL (2.0-8.3); Neutrophils Percent Auto 76.1 % (45-73); Platelet Count 231 X10*3/uL (160-400); Red Blood Count 4.44 X10*6/uL (4.60-5.80); Red Cell Distribution Width 13.4 % (11.0-16.0)
[2021-10-10 21:32] LABS: Troponin-I High Sensitivity < 3.5 ng/L (<3.5-35.0)
== END 2021-10-10 23:27 | disposition home or self-care (01) ==
PROVIDERS: Emergency Provider Emergency Medicine Emergency Medical Services
DX: G43.009 Migraine without aura, not intractable, without status migrainosus (principal); I10 Essential (primary) hypertension; Z79.899 Other long term (current) drug therapy
CPT/HCPCS: 36415; 84484; 85025; 96374; 96375; 99283; 99284; J1200; J1885; J2765

== ENCOUNTER 2021-11-03 16:34 | Emergency (ER) | payer MEDICARE, SELFPAY ==
--- NOTE | ~2021-11-03 | CT_ITS ---
EXAMINATION: CT HEAD WITHOUT CONTRAST CLINICAL INFORMATION: Syncope. Fall. Trauma. COMPARISON: CT head 08/29/2021 TECHNIQUE: Contiguous axial imaging was performed from the skull base to vertex without intravenous administration of contrast. Coronal and sagittal reformatted images are performed at CT scanner This CT examination was performed using dose optimization techniques as appropriate, variously including the following: *Automated exposure control *Adjustment of mA and/or kV according to patient size (this includes techniques or standardized protocols for targeted exams where dose is matched to indication/reason for exam; i.e. extremities or head) *Use of iterative reconstruction technique DLP: 852 mGy-cm FINDINGS: There is no evidence of acute intracranial hemorrhage or territorial infarction. No abnormal mass effect or midline shift is seen. Cade to white matter differentiation is well preserved. No extra-axial fluid collections are identified. There is generalized global volume loss. There is mild prominence of the ventricles and the sulci . There is mild hypodensity of the periventricular white matter due to chronic small vessel ischemic disease. The osseous structures and soft tissues are normal. The mastoid air cells and visualized portions of the paranasal sinuses are well aerated. CT/CT head/brain wo con IMPRESSION: No acute intracranial pathology.
[2021-11-03 16:45] VITALS: BP 148/75; PULSE 63; RESP 22; TEMP 36.4; O2SAT 99; BMI 26.7
--- NOTE | 2021-11-03 16:54 | ED.SYNCOPE ---
HPI - Syncope General Chief Complaint: Syncope Stated Complaint: SYNCOPE Time Seen by Provider: 11/03/21 16:53 Source: patient Mode of arrival: ambulatory Limitations: no limitations History of Present Illness HPI narrative: Patient's history of seizures ,prostate cancer chronic headaches was in the kitchen next to the sink with family when told them he is not feeling well having headache and dizzy and next thing they noticed he was collapsed but his grandson held him from his armpit to avoid the fall no head injury patient completely lost consciousness had jerking movements of the head and tremors of the upper extremity whole episode lasted for 15 minutes when EMS came patient was in deep sleep and they had to pinch hard to wake him up patient does not remember anything after feeling dizzy patient had last seizure about 7 years ago but not like Related Data Home Medications Medication Instructions Recorded Confirmed atorvastatin 40 mg tablet 1 tab PO BEDTIME 07/19/20 07/10/21 aspirin 81 mg tablet,delayed 81 mg PO DAILY 12/07/20 07/10/21 release cholecalciferol (vitamin D3) 50 1 cap PO DAILY 12/07/20 07/10/21 mcg (2,000 unit) capsule riboflavin (vitamin B2) 100 mg 200 mg PO QAM 01/05/21 07/10/21 tablet enzalutamide 40 mg capsule (Xtandi) 80 mg PO BID 05/14/21 07/10/21 magnesium 200 mg tablet 400 mg PO BID 05/14/21 07/10/21 tamsulosin 0.4 mg capsule 1 cap PO BID 07/10/21 07/10/21 propranolol 80 mg capsule,24 80 mg PO DAILY 08/11/21 hr,extended release Previous Rx's Medication Instructions Recorded propranolol 60 mg capsule,24 60 mg PO DAILY #30 cap 07/11/21 hr,extended release topiramate 25 mg tablet 25 mg PO BEDTIME #30 tab 07/13/21 metoclopramide HCl 10 mg tablet 10 mg PO Q6H PRN #14 tab 10/10/21 (Reglan) topiramate 50 mg tablet 50 mg PO BEDTIME #30 tab 10/10/21 Allergies Allergy/AdvReac Type Severity Reaction Status Date / Time oxycodone [Percocet] AdvReac Intermediate face got Verified 08/11/21 10:25 really red Review of Systems Review of Systems: Yes all other systems are reviewed and are negative PMFSH Past Medical History Medical History Bladder cancer Bladder tumor Bone cancer Cerebral microvascular disease Elevated cholesterol Hematuria HTN (hypertension) Prostate CA Tremor Surgical History H/O prostate biopsy History of cystoscopy Social History Social History Household Members: Spouse Housing: House Are you a primary care coordination manager to a significant other at home: No Do you presently have visiting nurse or other home services: Yes Alcohol intake: never Patient Tobacco Use Status: Never used Tobacco Second Hand Smoke Exposure: No Advance Directives: No Advance Directives Information Provided: No service: No Current occupational status: retired Physical Exam Vital Signs: Vital Signs: Last Vital Signs Temp 98.0 F 11/03/21 18:23 Pulse 63 11/03/21 18:23 Resp 20 11/03/21 18:23 BP 125/79 11/03/21 18:23 Pulse Ox 95 11/03/21 18:23 BMI result Body Mass Index 26.7 Appearance: Alert. Oriented X3. No acute distress. Eyes: PERRLA, No Nystagmus ENT: Pharynx normal. Oral Mucosa moist no tongue bite Neck: Normal inspection. Neck supple. CVS: Normal heart rate and rhythm. Pulses normal. Respiratory: No respiratory distress. Equal air entry bilateral, no wheezing/rales/rhonchi Abdomen: Soft and nontender. Bowel sounds are present, no mass palpable, no CVA tenderness Skin: Skin warm and dry. Normal skin color. Normal skin turgor. Extremities: No lower extremity edema. No calf tenderness Neuro: Oriented X 3. No motor deficit. No sensory deficit.No cerebellar signs , cranial nerves II-XII intact MDM - Syncope MDM Narrative Medical decision making narrative: Patient symptoms likely from a seizure orthostatics normal workup negative CT scan of the head is negative discharge patient home advised to follow with neurologist to continue Keppra patient was given extra dose of Keppra 500 mg in the ER Lab Data Attestation: I reviewed the patient's lab results. Result diagrams: 11/03/21 17:30 11/03/21 17:30 Labs: Lab Results 11/03/21 11/03/21 11/03/21 Range/Units 17:25 17:30 17:30 WBC 6.4 (4.8-10.8) X10*3/uL RBC 4.14 L (4.60-5.80) X10*6/uL Hgb 13.5 L (14.0-18.0) g/dl Hct 40.7 L (42.0-52.0) % MCV 98.3 H (80.0-98.0) fL MCH 32.6 (27.0-33.0) pg MCHC 33.2 (31.0-36.0) g/dl RDW 12.9 (11.0-16.0) % Plt Count 227 (160-400) X10*3/uL MPV 10.0 (9.4-12.4) fL Immature Gran % (Auto) 0.2 (0.0-0.4) % Neut % (Auto) 45.8 (45-73) % Lymph % (Auto) 41.7 H (20-40) % [place] % (Auto) 9.0 (2-11) % Eos % (Auto) 2.8 (0-4) % Baso % (Auto) 0.5 (0-2) % Lymph # (Auto) 2.7 (1.2-4.9) X10*3/uL [place] # (Auto) 0.6 (0.1-1.2) X10*3/uL Eos # (Auto) 0.2 (0.0-0.4) X10*3/uL Baso # (Auto) 0.0 (0.0-0.2) X10*3/uL Abs Immat Gran (auto) 0.01 (0.00-0.03) X10*3/uL Absolute Neuts (auto) 2.9 (2.0-8.3) x10*3/uL Absolute Nucleated RBC 0.000 (0.0-0.012) X10*3/uL Nucleated RBC % (auto) 0.0 (0.0-0.2) /100WBC Sodium 142 (135-145) mmol/L Potassium 4.7 (3.3-5.1) mmol/L Chloride 108 (96-108) mmol/L Carbon Dioxide 29 (22-29) mmol/L Anion Gap 10 L (12-20) BUN 29 H (9-16) mg/dL Creatinine 1.17 (0.5-1.4) mg/dL Estim Creat Clear Calc 73.1 Estimated GFR > 60 Random Glucose 100 (60-115) mg/dL Calcium 9.2 (8.4-10.2) mg/dL Magnesium 2.2 (1.6-2.6) mg/dL Troponin I High Sens (<3.5-35.0) ng/L COVID-19 ([facility]) Negative (Negative) COVID-19 Clin Com See Note 11/03/21 Range/Units 17:30 WBC (4.8-10.8) X10*3/uL RBC (4.60-5.80) X10*6/uL Hgb (14.0-18.0) g/dl Hct (42.0-52.0) % MCV (80.0-98.0) fL MCH (27.0-33.0) pg MCHC (31.0-36.0) g/dl RDW (11.0-16.0) % Plt Count (160-400) X10*3/uL MPV (9.4-12.4) fL Immature Gran % (Auto) (0.0-0.4) % Neut % (Auto) (45-73) % Lymph % (Auto) (20-40) % [place] % (Auto) (2-11) % Eos % (Auto) (0-4) % Baso % (Auto) (0-2) % Lymph # (Auto) (1.2-4.9) X10*3/uL [place] # (Auto) (0.1-1.2) X10*3/uL Eos # (Auto) (0.0-0.4) X10*3/uL Baso # (Auto) (0.0-0.2) X10*3/uL Abs Immat Gran (auto) (0.00-0.03) X10*3/uL Absolute Neuts (auto) (2.0-8.3) x10*3/uL Absolute Nucleated RBC (0.0-0.012) X10*3/uL Nucleated RBC % (auto) (0.0-0.2) /100WBC Sodium (135-145) mmol/L Potassium (3.3-5.1) mmol/L Chloride (96-108) mmol/L Carbon Dioxide (22-29) mmol/L Anion Gap (12-20) BUN (9-16) mg/dL Creatinine (0.5-1.4) mg/dL Estim Creat Clear Calc Estimated GFR Random Glucose (60-115) mg/dL Calcium (8.4-10.2) mg/dL Magnesium (1.6-2.6) mg/dL Troponin I High Sens < 3.5 (<3.5-35.0) ng/L COVID-19 ([facility]) (Negative) COVID-19 Clin Com Discharge Plan Discharge Clinical Impression: Seizure Patient Disposition: Home, Self-Care Instructions: Recurrent Seizures in Adults (ED) Additional Instructions: Continue your Levitiracetam as prescribed by your neurologist Follow-up with neurologist regarding further management Prescriptions: No Action cholecalciferol (vitamin D3) 50 mcg (2,000 unit) capsule 1 cap PO DAILY RF: 0 aspirin 81 mg Tablet,Delayed Release (Dr/Ec) 81 mg PO DAILY RF: 0 Xtandi 40 mg capsule 80 mg PO BID RF: 0 magnesium 200 mg Tablet 400 mg PO BID RF: 0 atorvastatin 40 mg tablet 1 tab PO BEDTIME RF: 0 tamsulosin 0.4 mg capsule 1 cap PO BID RF: 0 propranolol 60 mg capsule,extended release 24 hr 60 mg PO DAILY Qty: 30 RF: 0 topiramate 25 mg Tablet 25 mg PO BEDTIME Qty: 30 RF: 0 topiramate 50 mg tablet 50 mg PO BEDTIME Qty: 30 RF: 0 metoclopramide HCl [Reglan] 10 mg tablet 10 mg PO Q6H PRN (Reason: headaches,nausea, vomiting) Qty: 14 RF: 0
--- NOTE | 2021-11-03 16:57 | PC.NURSE ---
pt alert and oriented x4, vss, pt reports 8/10 headache that has been happening for a while but he is unsure of an exact time frame. pt reports he got up to go to the bathroom at home then felt dizzy and passed out. he reports that his grandson helped him to sit down but he doesn't remember anything after that. pt reports he was recently started on Levitiracetam at the beginning of this month because he has been having headaches.
[2021-11-03 17:04] VITALS: O2SAT 99
--- NOTE | 2021-11-03 17:11 | ECG_ITS ---
Test Reason : SYNCOPAL EPISODE Blood Pressure : / mmHG Vent. Rate : 061 BPM Atrial Rate : 061 BPM P-R Int : 154 ms QRS Dur : 108 ms QT Int : 436 ms P-R-T Axes : 017 -69 006 degrees QTc Int : 438 ms Normal sinus rhythm Left axis deviation Abnormal ECG When compared with ECG of 29-AUG-2021 08:32, No significant change was found Referred By: Albin Simon Electronically Signed By:Shaheen Damian
[2021-11-03 17:31] VITALS: BP 160/86; PULSE 64
[2021-11-03 17:37] VITALS: BP 160/88; PULSE 66
[2021-11-03 17:39] VITALS: BP 166/88; PULSE 90
[2021-11-03 17:39] LABS: MANUAL DIFF FLAG NO
[2021-11-03 17:41] LABS: Basophils Percent Auto 0.5 % (0-2); Eosinophils Absolute Auto 0.2 X10*3/uL (0.0-0.4); Eosinophils Percent Auto 2.8 % (0-4); Hematocrit 40.7 % (42.0-52.0); Hemoglobin 13.5 g/dl (14.0-18.0); Imm Gran Abs Auto 0.01 X10*3/uL (0.00-0.03); Imm Gran Pct Auto 0.2 % (0.0-0.4); Lymphocytes Absolute Auto 2.7 X10*3/uL (1.2-4.9); Lymphocytes Percent Auto 41.7 % (20-40); Mean Corpuscular HGB Conc 33.2 g/dl (31.0-36.0); Mean Corpuscular Hemoglobin 32.6 pg (27.0-33.0); Mean Corpuscular Volume 98.3 fL (80.0-98.0); Monocytes Absolute Auto 0.6 X10*3/uL (0.1-1.2); Neutrophils Absolute Auto 2.9 x10*3/uL (2.0-8.3); Neutrophils Percent Auto 45.8 % (45-73); Platelet Count 227 X10*3/uL (160-400); Red Blood Count 4.14 X10*6/uL (4.60-5.80); Red Cell Distribution Width 12.9 % (11.0-16.0); White Blood Count 6.4 X10*3/uL (4.8-10.8)
[2021-11-03 17:53] LABS: Anion Gap 10 (12-20); Blood Urea Nitrogen 29 mg/dL (9-16); Calcium 9.2 mg/dL (8.4-10.2); Carbon Dioxide 29 mmol/L (22-29); Chloride 108 mmol/L (96-108); Creatinine Clr Calc Pharmacy 73.1; Estimated Glomerular Filt Rate > 60; Glucose Random 100 mg/dL (60-115); Magnesium 2.2 mg/dL (1.6-2.6); Potassium 4.7 mmol/L (3.3-5.1); Sodium 142 mmol/L (135-145)
[2021-11-03 17:58] LABS: COVID-19 Test Negative (Negative)
[2021-11-03 17:59] LABS: Troponin-I High Sensitivity < 3.5 ng/L (<3.5-35.0)
[2021-11-03 18:23] VITALS: BP 125/79; PULSE 63; RESP 20; TEMP 36.7; O2SAT 95
[2021-11-03] MEDS: levETIRAcetam 500 MG TABLET PO (19:28)
== END 2021-11-03 19:34 | disposition home or self-care (01) ==
PROVIDERS: Emergency Provider Internal Medicine
DX: R56.9 Unspecified convulsions (principal); Z20.822 Contact with and (suspected) exposure to COVID-19; I10 Essential (primary) hypertension; E78.5 Hyperlipidemia, unspecified; Z85.51 Personal history of malignant neoplasm of bladder; Z85.46 Personal history of malignant neoplasm of prostate; Z85.830 Personal history of malignant neoplasm of bone; Z79.82 Long term (current) use of aspirin; Z79.02 Long term (current) use of antithrombotics/antiplatelets; Z79.899 Other long term (current) drug therapy
CPT/HCPCS: 70450; 80048; 83735; 84484; 85025; 87635; 93005; 99284; 99285

== ENCOUNTER 2021-11-05 17:15 | Emergency (ER) | payer MEDICARE, SELFPAY ==
--- NOTE | ~2021-11-05 | XR_ITS ---
EXAMINATION: PORTABLE CHEST 1 VIEW CLINICAL INFORMATION: Altered mental status, chest pain, rule out pneumonia . COMPARISON: 07/12/2021. TECHNIQUE: Portable frontal view of the chest was obtained. FINDINGS: The lungs are well expanded. No focal infiltrate, effusion, edema, or pneumothorax. Cardiac and mediastinal silhouettes are within normal limits for technique. No acute bony abnormality seen. XR/XR chest 1V IMPRESSION: No evidence of acute disease compared to 07/12/2021.
--- NOTE | ~2021-11-05 | CT_ITS ---
EXAMINATION: CT HEAD WITHOUT CONTRAST CLINICAL INFORMATION: Stroke protocol, headache all day, altered mental status. COMPARISON: CT head dated from 11/03/2021 and 08/29/2021. TECHNIQUE: Contiguous axial imaging was performed from the skull base to vertex without intravenous administration of contrast. This CT examination was performed using dose optimization techniques as appropriate, variously including the following: *Automated exposure control *Adjustment of mA and/or kV according to patient size (this includes techniques or standardized protocols for targeted exams where dose is matched to indication/reason for exam; i.e. extremities or head) *Use of iterative reconstruction technique DLP: 890 mGy-cm FINDINGS: Evaluation is somewhat limited due to motion. There is no evidence of acute intracranial hemorrhage or edematous territorial infarction. Confluent hypoattenuation in the periventricular and deep white matter. Cade-white matter differentiation is preserved. Proportional prominence of the ventricles and sulcal spaces. No evidence for obstructive hydrocephalus. No abnormal mass effect or midline shift. No extra-axial fluid collections. No acute soft tissue or osseous abnormalities. Mild mucosal thickening of the paranasal sinuses. The mastoids are clear. CT/CT head for stroke IMPRESSION: There is redemonstration of a background of extensive white matter changes not significantly changed and which may obscure subtle infarcts; in this setting, if focal neurologic deficits are present and if there is a high clinical suspicious for an acute cerebrovascular accident, recommend correlation with an MR of the brain. No intracranial hemorrhage nor abnormal mass effect. This critical result was discussed with Andrés Thakkar at 11/05/2021 5:54 PM and it was ascertained that the content and urgency of the report was understood at the time of direct communication.
--- NOTE | 2021-11-05 17:21 | ECG_ITS ---
Test Reason : Possible stroke Blood Pressure : / mmHG Vent. Rate : 066 BPM Atrial Rate : 066 BPM P-R Int : 156 ms QRS Dur : 108 ms QT Int : 420 ms P-R-T Axes : 015 -63 007 degrees QTc Int : 440 ms Normal sinus rhythm Left axis deviation Abnormal ECG When compared with ECG of 03-NOV-2021 17:20, No significant change was found Referred By: Andrés Thakkar Electronically Signed By:Shaheen Damian
[2021-11-05 17:33] LABS: Prothrombin Time Whole Bld POC 11.7 sec (11.1-13.5)
[2021-11-05 17:37] VITALS: BP 153/66; PULSE 66; RESP 14; TEMP 36.9; O2SAT 97
[2021-11-05 17:41] VITALS: BP 145/87; BP 153/66; PULSE 65; PULSE 84; RESP 18; TEMP 36.8; O2SAT 98; BMI 29.8
[2021-11-05 17:57] LABS: Glucose, Whole Blood 100 mg/dL (60-115)
[2021-11-05 19:42] LABS: MANUAL DIFF FLAG NO
[2021-11-05 19:43] LABS: Basophils Percent Auto 0.5 % (0-2); Eosinophils Absolute Auto 0.2 X10*3/uL (0.0-0.4); Hematocrit 42.4 % (42.0-52.0); Hemoglobin 14.3 g/dl (14.0-18.0); Imm Gran Abs Auto 0.02 X10*3/uL (0.00-0.03); Imm Gran Pct Auto 0.3 % (0.0-0.4); Lymphocytes Absolute Auto 2.7 X10*3/uL (1.2-4.9); Lymphocytes Percent Auto 36.1 % (20-40); Mean Corpuscular HGB Conc 33.7 g/dl (31.0-36.0); Mean Corpuscular Hemoglobin 33.5 pg (27.0-33.0); Mean Corpuscular Volume 99.3 fL (80.0-98.0); Mean Platelet Volume 10.1 fL (9.4-12.4); Monocytes Absolute Auto 0.6 X10*3/uL (0.1-1.2); Monocytes Percent Auto 8.7 % (2-11); Neutrophils Absolute Auto 3.9 x10*3/uL (2.0-8.3); Neutrophils Percent Auto 52.4 % (45-73); Platelet Count 233 X10*3/uL (160-400); Red Blood Count 4.27 X10*6/uL (4.60-5.80); Red Cell Distribution Width 13.1 % (11.0-16.0); White Blood Count 7.4 X10*3/uL (4.8-10.8)
[2021-11-05 19:49] LABS: INTERNATIONAL NORM RATIO 0.9 (0.9-1.1); Prothrombin Time 9.9 SEC (9.9-13.0)
[2021-11-05 19:51] LABS: Appearance Urine CLEAR; Color Urine YELLOW; Glucose Urine UA NEG (NEG); Leukocyte Esterase Urine NEG (NEG); Nitrite Urine NEG (NEG); Urine Blood NEG (NEG); Urine Ketones NEG (NEG); Urine Protein NEG (NEG-TRACE)
[2021-11-05 19:51] LABS: Partial Thromboplastin Time 32.4 SEC (24.1-38.0)
[2021-11-05 19:58] LABS: Alanine Aminotransferase 18 U/L (0-40); Albumin Level 3.7 g/dL (3.5-5.0); Alkaline Phosphatase 113 U/L (39-117); Anion Gap 10 (12-20); Aspartate Amino Transferase 22 U/L (5-37); Bilirubin Direct 0.3 mg/dL (0.0-0.5); Bilirubin Total 0.5 mg/dL (0.0-1.0); Blood Urea Nitrogen 32 mg/dL (9-16); Calcium 9.7 mg/dL (8.4-10.2); Carbon Dioxide 30 mmol/L (22-29); Chloride 108 mmol/L (96-108); Creatinine Clr Calc Pharmacy 60.4; Estimated Glomerular Filt Rate 50; Glucose Random 97 mg/dL (60-115); Potassium 5.4 mmol/L (3.3-5.1); Sodium 143 mmol/L (135-145); Total Protein 7.1 g/dL (6.5-8.0)
[2021-11-05 20:02] LABS: Troponin-I High Sensitivity < 3.5 ng/L (<3.5-35.0)
[2021-11-05 20:22] LABS: Stroke Lab Use COMPLETE
[2021-11-05] MEDS: levETIRAcetam in NaCl (iso-os) 500 MG/100 ML PIGGYBACK 400 MG IV (20:41)
--- NOTE | 2021-11-05 21:26 | ED_ITS ---
HPI - Neuro Symptoms/Deficit General Chief Complaint: Stroke Stated Complaint: stroke Time Seen by Provider: 11/05/21 17:20 Source: patient and family ( Florencia) Mode of arrival: EMS Limitations: altered mental status History of Present Illness HPI Narrative: 71-year-old male who was brought to the emergency department for altered mental status possible stroke alert. According to the paramedics, the patient had a headache all day and suddenly had altered mental status and his called an ambulance. The patient had a similar presentation 2 days prior and was seen here in the emergency department and diagnosed with seizure. On presentation, the patient was somnolent but arousable, he was able to tell me his name, he appeared to have generalized weakness otherwise his exam was unremarkable. According to his , Florencia, the patient woke up this morning and ate breakfast and lunch. Shortly after lunch and just before supper he started to complain of a headache. Patient told me that the headache was located in his forehead, the headache was a constant, dull pain which was 7/10. He had asso ciated dizziness but no nausea or vomiting. He then sat down to eat supper and his states that he passed out. She states that his hands began to shake and then has whole body started to shake. She called 911 and the patient was brought to the emergency department. The patient was taking Keppra 250 mg twice a day but after his seizure 2 days prior, his neurologist increased his Keppra to 500 mg twice a day. He denied fever, chills, cough, chest pain, shortness of breath. Related Data Home Medications Medication Instructions Recorded Confirmed atorvastatin 40 mg tablet 1 tab PO BEDTIME 07/19/20 07/10/21 aspirin 81 mg tablet,delayed 81 mg PO DAILY 12/07/20 07/10/21 release cholecalciferol (vitamin D3) 50 1 cap PO DAILY 12/07/20 07/10/21 mcg (2,000 unit) capsule riboflavin (vitamin B2) 100 mg 200 mg PO QAM 01/05/21 07/10/21 tablet enzalutamide 40 mg capsule (Xtandi) 80 mg PO BID 05/14/21 07/10/21 magnesium 200 mg tablet 400 mg PO BID 05/14/21 07/10/21 tamsulosin 0.4 mg capsule 1 cap PO BID 07/10/21 07/10/21 propranolol 80 mg capsule,24 80 mg PO DAILY 08/11/21 hr,extended release Previous Rx's Medication Instructions Recorded propranolol 60 mg capsule,24 60 mg PO DAILY #30 cap 07/11/21 hr,extended release topiramate 25 mg tablet 25 mg PO BEDTIME #30 tab 07/13/21 metoclopramide HCl 10 mg tablet 10 mg PO Q6H PRN #14 tab 10/10/21 (Reglan) topiramate 50 mg tablet 50 mg PO BEDTIME #30 tab 10/10/21 levetiracetam 500 mg tablet 500 mg PO BID #60 tab 11/05/21 (Keppra) Allergies Allergy/AdvReac Type Severity Reaction Status Date / Time oxycodone [Percocet] AdvReac Intermediate face got Verified 08/11/21 10:25 really red Review of Systems Review of Systems: Yes all other systems are reviewed and are negative [facility] Past Medical History Medical History Bladder cancer Bladder tumor Bone cancer Cerebral microvascular disease Elevated cholesterol Hematuria HTN (hypertension) Prostate CA Tremor Surgical History H/O prostate biopsy History of cystoscopy Social History Social History Household Members: Spouse Housing: House Are you a primary acute care nursing assistant to a significant other at home: No Do you presently have visiting nurse or other home services: Yes Alcohol intake: never Patient Tobacco Use Status: Never used Tobacco Second Hand Smoke Exposure: No Advance Directives: Yes Advance Directives Information Provided: No Advance Directives on File: No service: No Current occupational status: retired Physical Exam Vital Signs: Vital Signs: Last Vital Signs Temp 98.3 F 11/05/21 17:41 Pulse 65 11/05/21 17:41 Resp 18 11/05/21 17:41 BP 153/66 H 11/05/21 17:41 Pulse Ox 98 11/05/21 17:41 BMI result Body Mass Index 29.8 Const: Other: On initial presentation the patient was somnolent, he was able t o tell me his name, he appeared to have generalized weakness, his neurologic exam appeared to be nonfocal. After he came back from CT scan and being in the emergency department for approximately 30 minutes, patient was awake and alert able to give a very good history without any difficulty. HENMT: Head: Yes normal to inspection, Yes normocephalic and Yes atraumatic Ears: external ears normal General nose exam: Normal external nose present Face and sinus: Yes normal facial exam Mouth: Normal oral and palatal mucosa present Throat: Yes posterior oropharynx normal Eyes: General: appearance normal, both eyes and all related structures Pupils: Equal, round and reactive pupils present Neck: Neck: Yes normal visual inspection, Yes no lymphadenopathy, Yes trachea midline and Yes supple Chest: Chest palpation & inspection: normal inspection of the chest and normal palpation of entire chest wall Resp: Effort & Inspection: normal respiratory effort and able to speak in complete sentences Auscultation: clear to auscultation bilaterally Cardio: Rate: regular rate Rhythm: regular rhythm Heart sounds: S1 normal heart sound present, S2 normal heart sound present and no murmurs GI: Inspection: Yes normal to inspection Palpation (GI): Soft to palpation, nontender and no guarding Auscultation: normal bowel sounds : General: Yes no CVA tenderness Back/Spine/Pelvis: Back: no CVA tenderness Skin: General skin exam: no rashes or lesions noted Neuro: Cranial nerves: Yes CN's II-XII intact bilaterally and Yes Equal, round and reactive pupils present Cognition (Neuro): normal cognition Motor exam (neuro): 5/5 motor strength present throughout Extrem: General: Yes normal to inspection Psych: Appearance: grossly normal Speech and movement: Normal speech and movement present Affect: normal affect Attitude: cooperative Thought process: Normal thought process present Thought content: Normal thought content present Course Course Course Narrative: 71-year-old male who is being treated for seizures by his ne urologist who had a seizure-like episode 2 days prior and today presents with a another seizure-like episode at home. The patient did have a headache and dizziness which seem to proceed seizure activity. Initially the patient was somnolent and altered but after approximately 30 minutes in the emergency department he was awake and alert and had a normal neurologic exam. The patient's laboratory evaluation was unremarkable. The patient's COVID-19 test was negative. Twelve EKG was normal with a normal QTC interval. Chest x-ray was normal CT scan of the brain which revealed no acute process however the patient does have severe white matter changes with multiple tiny infarcts. This was unchanged from his CT scan 2 days prior and from August 2021. The patient was loaded with Keppra 500 mg IV. He was advised to continue taking his Keppra 500 mg twice a day. I did discuss the patient's presentation with his as well. patient was discharged home advised to contact his neurologist on Sunday morning, 11/07/2021 to discuss further management. MDM - Neuro Symptoms/Deficit Lab Data Result diagrams: 11/05/21 19:34 11/05/21 19:34 Labs: Lab Results 11/05/21 11/05/21 11/05/21 Range/Units 17:27 17:52 19:34 WBC (4.8-10.8) X10*3/uL RBC (4.60-5.80) X10*6/uL Hgb (14.0-18.0) g/dl Hct (42.0-52.0) % MCV (80.0-98.0) fL MCH (27.0-33.0) pg MCHC (31.0-36.0) g/dl RDW (11.0-16.0) % Plt Count (160-400) X10*3/uL MPV (9.4-12.4) fL Immature Gran % (Auto) (0.0-0.4) % Neut % (Auto) (45-73) % Lymph % (Auto) (20-40) % [place] % (Auto) (2-11) % Eos % (Auto) (0-4) % Baso % (Auto) (0-2) % Lymph # (Auto) (1.2-4.9) X10*3/uL [place] # (Auto) (0.1-1.2) X10*3/uL Eos # (Auto) (0.0-0.4) X10*3/uL Baso # (Auto) (0.0-0.2) X10*3/uL Abs Immat Gran (auto) (0.00-0.03) X10*3/uL Absolute Neuts (auto) (2.0-8.3) x10*3/uL Absolute Nucleated RBC (0.0-0.012) X10*3/uL Nucleated RBC % (auto) (0.0-0.2) /100WBC PT (9.9-13.0) SEC Whole Blood PT 11.7 (11.1-13.5) sec INR (0.9-1.1) Whole Blood INR 1.0 (0.9-1.1) APTT (24.1-38.0) SEC Sodium 143 (135-145) mmol/L Potassium 5.4 H (3.3-5.1) mmol/L Chloride 108 (96-108) mmol/L Carbon Dioxide 30 H (22-29) mmol/L Anion Gap 10 L (12-20) BUN 32 H (9-16) mg/dL Creatinine 1.41 H (0.5-1.4) mg/dL Estim Creat Clear Calc 60.4 Estimated GFR 50 POC Glucose 100 (60-115) mg/dL Random Glucose 97 (60-115) mg/dL Calcium 9.7 (8.4-10.2) mg/dL Total Bilirubin 0.5 (0.0-1.0) mg/dL Direct Bilirubin 0.3 (0.0-0.5) mg/dL AST 22 (5-37) U/L ALT 18 (0-40) U/L Alkaline Phosphatase 113 (39-117) U/L Total Creatine Kinase 63 (38-174) U/L Troponin I High Sens (<3.5-35.0) ng/L Total Protein 7.1 (6.5-8.0) g/dL Albumin 3.7 (3.5-5.0) g/dL Urine Color Urine Appearance Urine pH (5.0-8.0) Ur Specific [place] (1.005-1.025) Urine Protein (NEG-TRACE) MG/DL Urine Glucose (UA) (NEG) MG/DL Urine Ketones (NEG) MG/DL Urine Blood (NEG) Urine Nitrite (NEG) Ur Leukocyte Esterase (NEG) 11/05/21 11/05/21 11/05/21 Range/Units 19:34 19:34 19:34 WBC 7.4 (4.8-10.8) X10*3/uL RBC 4.27 L (4.60-5.80) X10*6/uL Hgb 14.3 (14.0-18.0) g/dl Hct 42.4 (42.0-52.0) % MCV 99.3 H (80.0-98.0) fL MCH 33.5 H (27.0-33.0) pg MCHC 33.7 (31.0-36.0) g/dl RDW 13.1 (11.0-16.0) % Plt Count 233 (160-400) X10*3/uL MPV 10.1 (9.4-12.4) fL Immature Gran % (Auto) 0.3 (0.0-0.4) % Neut % (Auto) 52.4 (45-73) % Lymph % (Auto) 36.1 (20-40) % [place] % (Auto) 8.7 (2-11) % Eos % (Auto) 2.0 (0-4) % Baso % (Auto) 0.5 (0-2) % Lymph # (Auto) 2.7 (1.2-4.9) X10*3/uL [place] # (Auto) 0.6 (0.1-1.2) X10*3/uL Eos # (Auto) 0.2 (0.0-0.4) X10*3/uL Baso # (Auto) 0.0 (0.0-0.2) X10*3/uL Abs Immat Gran (auto) 0.02 (0.00-0.03) X10*3/uL Absolute Neuts (auto) 3.9 (2.0-8.3) x10*3/uL Absolute Nucleated RBC 0.000 (0.0-0.012) X10*3/uL Nucleated RBC % (auto) 0.0 (0.0-0.2) /100WBC PT 9.9 (9.9-13.0) SEC Whole Blood PT (11.1-13.5) sec INR 0.9 (0.9-1.1) Whole Blood INR (0.9-1.1) APTT 32.4 (24.1-38.0) SEC Sodium (135-145) mmol/L Potassium (3.3-5.1) mmol/L Chloride (96-108) mmol/L Carbon Dioxide (22-29) mmol/L Anion Gap (12-20) BUN (9-16) mg/dL Creatinine (0.5-1.4) mg/dL Estim Creat Clear Calc Estimated GFR POC Glucose (60-115) mg/dL Random Glucose (60-115) mg/dL Calcium (8.4-10.2) mg/dL Total Bilirubin (0.0-1.0) mg/dL Direct Bilirubin (0.0-0.5) mg/dL AST (5-37) U/L ALT (0-40) U/L Alkaline Phosphatase (39-117) U/L Total Creatine Kinase (38-174) U/L Troponin I High Sens < 3.5 (<3.5-35.0) ng/L Total Protein (6.5-8.0) g/dL Albumin (3.5-5.0) g/dL Urine Color Urine Appearance Urine pH (5.0-8.0) Ur Specific [place] (1.005-1.025) Urine Protein (NEG-TRACE) MG/DL Urine Glucose (UA) (NEG) MG/DL Urine Ketones (NEG) MG/DL Urine Blood (NEG) Urine Nitrite (NEG) Ur Leukocyte Esterase (NEG) 11/05/21 Range/Units 19:45 WBC (4.8-10.8) X10*3/uL RBC (4.60-5.80) X10*6/uL Hgb (14.0-18.0) g/dl Hct (42.0-52.0) % MCV (80.0-98.0) fL MCH (27.0-33.0) pg MCHC (31.0-36.0) g/dl RDW (11.0-16.0) % Plt Count (160-400) X10*3/uL MPV (9.4-12.4) fL Immature Gran % (Auto) (0.0-0.4) % Neut % (Auto) (45-73) % Lymph % (Auto) (20-40) % [place] % (Auto) (2-11) % Eos % (Auto) (0-4) % Baso % (Auto) (0-2) % Lymph # (Auto) (1.2-4.9) X10*3/uL [place] # (Auto) (0.1-1.2) X10*3/uL Eos # (Auto) (0.0-0.4) X10*3/uL Baso # (Auto) (0.0-0.2) X10*3/uL Abs Immat Gran (auto) (0.00-0.03) X10*3/uL Absolute Neuts (auto) (2.0-8.3) x10*3/uL Absolute Nucleated RBC (0.0-0.012) X10*3/uL Nucleated RBC % (auto) (0.0-0.2) /100WBC PT (9.9-13.0) SEC Whole Blood PT (11.1-13.5) sec INR (0.9-1.1) Whole Blood INR (0.9-1.1) APTT (24.1-38.0) SEC Sodium (135-145) mmol/L Potassium (3.3-5.1) mmol/L Chloride (96-108) mmol/L Carbon Dioxide (22-29) mmol/L Anion Gap (12-20) BUN (9-16) mg/dL Creatinine (0.5-1.4) mg/dL Estim Creat Clear Calc Estimated GFR POC Glucose (60-115) mg/dL Random Glucose (60-115) mg/dL Calcium (8.4-10.2) mg/dL Total Bilirubin (0.0-1.0) mg/dL Direct Bilirubin (0.0-0.5) mg/dL AST (5-37) U/L ALT (0-40) U/L Alkaline Phosphatase (39-117) U/L Total Creatine Kinase (38-174) U/L Troponin I High Sens (<3.5-35.0) ng/L Total Protein (6.5-8.0) g/dL Albumin (3.5-5.0) g/dL Urine Color YELLOW Urine Appearance CLEAR Urine pH 6.0 (5.0-8.0) Ur Specific [place] 1.020 (1.005-1.025) Urine Protein NEG (NEG-TRACE) MG/DL Urine Glucose (UA) NEG (NEG) MG/DL Urine Ketones NEG (NEG) MG/DL Urine Blood NEG (NEG) Urine Nitrite NEG (NEG) Ur Leukocyte Esterase NEG (NEG) ECG Data Attestation: I personally reviewed and interpreted this ECG as follows: Interpretation: 1743: Normal sinus rhythm with a rate of 66, normal NC, QRS du ration QTC interval, no ST segment elevation, no ST segment depression, no PACs, no PVCs. Discharge Plan Discharge Clinical Impression: Seizure Patient Disposition: Home, Self-Care Instructions: Epilepsy (ED) Additional Instructions: Based on your 's description of what happened to you at home, you had a seizure. Your received Keppra (levetiracetam) 500 mg here in the emergency department. Take your nighttime dose of Keppra when you get home. Continue to take Keppra 500 mg twice a day. Call your neurologist on Sunday morning to discuss the fact that you had another seizure. My thought is the higher dose of Keppra should help prevent you from having another seizure. Follow-up with your doctor in 2 days. Please return to the emergency department if your symptoms get worse or if you develop any symptoms that are concerning to you. Prescriptions: New levetiracetam [Keppra] 500 mg tablet 500 mg PO BID Qty: 60 RF: 0 No Action cholecalciferol (vitamin D3) 50 mcg (2,000 unit) capsule 1 cap PO DAILY RF: 0 aspirin 81 mg Tablet,Delayed Release (Dr/Ec) 81 mg PO DAILY RF: 0 Xtandi 40 mg capsule 80 mg PO BID RF: 0 magnesium 200 mg Tablet 400 mg PO BID RF: 0 atorvastatin 40 mg tablet 1 tab PO BEDTIME RF: 0 tamsulosin 0.4 mg capsule 1 cap PO BID RF: 0 propranolol 60 mg capsule,extended release 24 hr 60 mg PO DAILY Qty: 30 RF: 0 topiramate 25 mg Tablet 25 mg PO BEDTIME Qty: 30 RF: 0 topiramate 50 mg tablet 50 mg PO BEDTIME Qty: 30 RF: 0 metoclopramide HCl [Reglan] 10 mg tablet 10 mg PO Q6H PRN (Reason: headaches,nausea, vomiting) Qty: 14 RF: 0
--- NOTE | 2021-11-05 21:41 | PC.NURSE ---
I assumed care of this pt at 1900 on my arrival. Since that time the pt has remained alert and oriented x 3, without chest pain or shortness of breath, He makes eye contact with RN and has been calm and cooperative. he speaks in full sentences, no cyanosis, respirations non-labored, room air sat's 95% or better.Shortly after my arrival MD Fitzgerald met with pt and requested the pt be given a loading dose of Keppra. This was administered without incident and the pt has been discharged at this time. I assisted the pt into a wheelchair 0 he was able to transfer himself from stretcher to wheelchair independently with slow but steady gait with one stand by assist. While he was standing he voided into bedside urinal without difficulty. He verbalized an understanding of all DC instructions.
[2021-11-10 14:47] LABS: Levetiracetam Keppra 10.2 mcg/mL (12.0-46.0)
== END 2021-11-05 21:41 | disposition home or self-care (01) ==
PROVIDERS: Emergency Provider Emergency Medicine Emergency Medical Services
DX: R56.9 Unspecified convulsions (principal); E78.5 Hyperlipidemia, unspecified; Z79.02 Long term (current) use of antithrombotics/antiplatelets; Z79.82 Long term (current) use of aspirin; Z79.899 Other long term (current) drug therapy; Z85.51 Personal history of malignant neoplasm of bladder; Z85.830 Personal history of malignant neoplasm of bone; Z85.46 Personal history of malignant neoplasm of prostate
CPT/HCPCS: 36415; 70450; 71045; 80048; 80076; 80177; 81003; 82550; 82947; 84484; 85025; 85610; 85730; 93005; 96374; 99283; 99284; J1953

== ENCOUNTER 2021-11-07 12:26 | Emergency (ER) | payer MEDICARE, SELFPAY ==
[2021-11-07 12:29] VITALS: BP 150/90; BP 165/86; PULSE 62; PULSE 65; RESP 18; TEMP 37.6; O2SAT 96; O2SAT 99; BMI 33.1
--- NOTE | 2021-11-07 12:39 | ECG_ITS ---
Test Reason : ?SEIZURE Blood Pressure : / mmHG Vent. Rate : 062 BPM Atrial Rate : 062 BPM P-R Int : 146 ms QRS Dur : 110 ms QT Int : 446 ms P-R-T Axes : 008 -65 -01 degrees QTc Int : 452 ms Normal sinus rhythm Left axis deviation Abnormal ECG When compared with ECG of 05-NOV-2021 17:43, No significant change was found Referred By: Herlinda Hall Electronically Signed By:DIPESH FLORES MD
--- NOTE | 2021-11-07 12:42 | ED_ITS ---
HPI - Headache General Chief Complaint: Headache Stated Complaint: severe headache, intermittent seizures Time Seen by Provider: 11/07/21 12:36 Source: EMS Mode of arrival: EMS Limitations: other History of Present Illness HPI Narrative: patient comes to the emergency room from home. This morning, patient had severe headache, staring episodes with unresponsiveness while holding his eyes open. No tonic clonic seizures. Of note, patient has been evaluated in this emergency room several times for similar episodes of headache, stroke-like symptoms, seizure-like Activity. Patient was seen here 2 days ago for similar complaint. patient is currently taking Keppra 500 mg b.i.d., patient was supposed to have an appointment with neurology today. at this time, patient is alert, states that he has a headache Related Data Home Medications Medication Instructions Recorded Confirmed atorvastatin 40 mg tablet 1 tab PO BEDTIME 07/19/20 07/10/21 aspirin 81 mg tablet,delayed 81 mg PO DAILY 12/07/20 07/10/21 release cholecalciferol (vitamin D3) 50 1 cap PO DAILY 12/07/20 07/10/21 mcg (2,000 unit) capsule riboflavin (vitamin B2) 100 mg 200 mg PO QAM 01/05/21 07/10/21 tablet enzalutamide 40 mg capsule (Xtandi) 80 mg PO BID 05/14/21 07/10/21 magnesium 200 mg tablet 400 mg PO BID 05/14/21 07/10/21 tamsulosin 0.4 mg capsule 1 cap PO BID 07/10/21 07/10/21 propranolol 80 mg capsule,24 80 mg PO DAILY 08/11/21 hr,extended release Previous Rx's Medication Instructions Recorded propranolol 60 mg capsule,24 60 mg PO DAILY #30 cap 07/11/21 hr,extended release topiramate 25 mg tablet 25 mg PO BEDTIME #30 tab 07/13/21 metoclopramide HCl 10 mg tablet 10 mg PO Q6H PRN #14 tab 10/10/21 (Reglan) topiramate 50 mg tablet 50 mg PO BEDTIME #30 tab 10/10/21 levetiracetam 500 mg tablet 500 mg PO BID #60 tab 11/05/21 (Keppra) [id number]-rzrjtiasuvups-wbbxyzrb 1 cap PO TID PRN #7 cap 11/07/21 50 mg-300 mg-40 mg capsule (Fioricet) topiramate 25 mg tablet 25 mg PO BID #60 tab 11/07/21 Allergies Allergy/AdvReac Type Severity Reaction Status Date / Time oxycodone [Percocet] AdvReac Intermediate face got Verified 08/11/21 10:25 really red Review of Systems Review of Systems: Constitutional : No Weight loss, No Fever, No Chills, No Night Sweats, No Fatigue, No Malaise ENT/Mouth : No Hearing loss, No Ear Pain, No Nasal Congestion, No Sinus Pain, No Hoarseness, No sore throat, No Rhinorrhea, No Swallowing Difficulty Eyes: No Eye Pain, No Swelling, No Redness, No Foreign Body, No Discharge, No Vision Changes Cardiovascular : No Chest Pain, No SOB, No Dyspnea on Exertion, No Orthopnea, No Edema, No Palpitations Respiratory : No Cough, No Sputum, No Wheezing, No Smoke Exposure, No Dyspnea Gastrointestinal : No Nausea, No Vomiting, No Diarrhea, No Constipation, No abdominal Pain, No Hematochezia, No Melena Genitourinary : no irregular bleeding, No Dysuria, No Urinary Frequency, No Hematuria, No Urinary Incontinence, No Urgency, No Flank Pain, No Urinary Flow Changes, No Hesitancy Musculoskeletal : No joint pain, No Myalgias, No Joint Swelling Skin : No Skin Lesions, No rash Neuro : No Weakness, No Numbness, No Paresthesias, patient complaining of a headache Psych : No Anxiety/Panic, No Depression, No SI/HI/AH/VH, No Social Issues, Heme/Lymph: No Bruising, No Bleeding,No Lymphadenopathy Endocrine : No Polyuria, No Polydipsia, No Temperature Intolerance [facility] Past Medical History Medical History Bladder cancer Bladder tumor Bone cancer Cerebral microvascular disease Elevated cholesterol Hematuria HTN (hypertension) Prostate CA Tremor Surgical History H/O prostate biopsy History of cystoscopy Social History Social History Household Members: Spouse Housing: House Are you a primary critical care paramedic to a significant other at home: No Do you presently have visiting nurse or other home services: Yes Alcohol intake: never Patient Tobacco Use Status: Never used Tobacco Second Hand Smoke Exposure: No Advance Directives: No Advance Directives Information Provided: Yes service: No Current occupational status: retired Physical Exam Vital Signs: Vital Signs: Last Vital Signs Temp 98.3 F 11/07/21 13:00 Pulse 62 11/07/21 15:14 Resp 18 11/07/21 15:14 BP 125/83 11/07/21 15:14 Pulse Ox 93 11/07/21 15:14 BMI result Body Mass Index 33.1 Const: Other: Appearance: Alert. No acute distress. Eyes: Pupils equal, round and reactive to light. ENT: Pharynx normal. Neck: Normal inspection. Neck supple. No lymph nodes noted. No crepitus CVS: Normal heart rate and rhythm. Pulses normal. Normal S1 and S2 Respiratory: No respiratory distress. Breath sounds normal. No Wheezing. No rales Abdomen: Soft and nontender. No rigidity. No distention. Skin: Skin warm and dry. Normal skin color. Normal skin turgor. Extremities: No lower extremity edema. No Lacerations. No Rash Neuro: Oriented X 3. No motor deficit. No sensory deficit. Moving all extermities. No slurred speech. Course Course Course Narrative: I discussed the patient with Dr. Roth from Neurology. patient had a CT scan done 2 days ago, showing chronic changes. At this time, patient has no new physical findings. A CT scan of the head is not indicated at this time. Patient does not have stroke-like symptoms, patient is awake alert, states the headache is decreasing. Patient was given 1 dose of Tylenol and he is about to receive 1 dose of sumatriptan. Patient states that in the past he has been told that he has migraines. Dr. Roth is going to come down and evaluate the patient and then decided the patient needs to be admitted for EEG. Patient's vitals stable, physician observation started at 15:00 Dr. Roth evaluated the patient, patient will be discharged home, we will at topiramate 25 mg twice a day, patient to continue taking Keppra 500 mg b.i.d. And p.r.n. Fioricet maximum twice a week for headaches I discussed the plan with the patient, agrees with plan, patient will be discharged home MDM - Headache Lab Data Result diagrams: 11/07/21 12:51 11/07/21 12:51 Labs: Lab Results 11/07/21 11/07/21 Range/Units 12:51 12:51 WBC 6.6 (4.8-10.8) X10*3/uL RBC 4.28 L (4.60-5.80) X10*6/uL Hgb 14.2 (14.0-18.0) g/dl Hct 42.2 (42.0-52.0) % MCV 98.6 H (80.0-98.0) fL MCH 33.2 H (27.0-33.0) pg MCHC 33.6 (31.0-36.0) g/dl RDW 13.0 (11.0-16.0) % Plt Count 214 (160-400) X10*3/uL MPV 9.9 (9.4-12.4) fL Immature Gran % (Auto) 0.2 (0.0-0.4) % Neut % (Auto) 51.2 (45-73) % Lymph % (Auto) 37.8 (20-40) % [place] % (Auto) 8.8 (2-11) % Eos % (Auto) 1.5 (0-4) % Baso % (Auto) 0.5 (0-2) % Lymph # (Auto) 2.5 (1.2-4.9) X10*3/uL [place] # (Auto) 0.6 (0.1-1.2) X10*3/uL Eos # (Auto) 0.1 (0.0-0.4) X10*3/uL Baso # (Auto) 0.0 (0.0-0.2) X10*3/uL Abs Immat Gran (auto) 0.01 (0.00-0.03) X10*3/uL Absolute Neuts (auto) 3.4 (2.0-8.3) x10*3/uL Absolute Nucleated RBC 0.000 (0.0-0.012) X10*3/uL Nucleated RBC % (auto) 0.0 (0.0-0.2) /100WBC Sodium 140 (135-145) mmol/L Potassium 4.9 (3.3-5.1) mmol/L Chloride 106 (96-108) mmol/L Carbon Dioxide 27 (22-29) mmol/L Anion Gap 12 (12-20) BUN 29 H (9-16) mg/dL Creatinine 1.32 (0.5-1.4) mg/dL Estim Creat Clear Calc 67.9 Estimated GFR 54 Random Glucose 84 (60-115) mg/dL Calcium 9.8 (8.4-10.2) mg/dL Total Bilirubin 1.0 (0.0-1.0) mg/dL Direct Bilirubin 0.4 (0.0-0.5) mg/dL AST 21 (5-37) U/L ALT 21 (0-40) U/L Alkaline Phosphatase 103 (39-117) U/L Total Protein 7.2 (6.5-8.0) g/dL Albumin 3.8 (3.5-5.0) g/dL Discharge Plan Discharge Clinical Impression: Migraine headache without aura Patient Disposition: Home, Self-Care Instructions: Migraine Headache (ED) Additional Instructions: continue taking Keppra twice a day, we added a 2nd medication, topiramate. Please follow-up with your primary care physician tomorrow. If you have any worsening or new symptoms, please return to the emergency room or call 911 Prescriptions: New topiramate 25 mg tablet 25 mg PO BID Qty: 60 RF: 0 [id number]-maddqlabthzhk-krpr [Fioricet] 50-300-40 mg capsule 1 cap PO TID PRN (Reason: pain) Qty: 7 RF: 0 No Action cholecalciferol (vitamin D3) 50 mcg (2,000 unit) capsule 1 cap PO DAILY RF: 0 aspirin 81 mg Tablet,Delayed Release (Dr/Ec) 81 mg PO DAILY RF: 0 Xtandi 40 mg capsule 80 mg PO BID RF: 0 magnesium 200 mg Tablet 400 mg PO BID RF: 0 atorvastatin 40 mg tablet 1 tab PO BEDTIME RF: 0 tamsulosin 0.4 mg capsule 1 cap PO BID RF: 0 propranolol 60 mg capsule,extended release 24 hr 60 mg PO DAILY Qty: 30 RF: 0 topiramate 25 mg Tablet 25 mg PO BEDTIME Qty: 30 RF: 0 topiramate 50 mg tablet 50 mg PO BEDTIME Qty: 30 RF: 0 metoclopramide HCl [Reglan] 10 mg tablet 10 mg PO Q6H PRN (Reason: headaches,nausea, vomiting) Qty: 14 RF: 0 levetiracetam [Keppra] 500 mg tablet 500 mg PO BID Qty: 60 RF: 0 Referrals: Gilda Roth MD [Physician] - 1 week
[2021-11-07] MEDS: Acetaminophen 325 MG TABLET 650 MG PO (12:47)
[2021-11-07 13:00] VITALS: BP 165/86; PULSE 67; RESP 15; TEMP 36.8; O2SAT 95
[2021-11-07 13:01] LABS: MANUAL DIFF FLAG NO
[2021-11-07 13:04] LABS: Basophils Percent Auto 0.5 % (0-2); Eosinophils Absolute Auto 0.1 X10*3/uL (0.0-0.4); Eosinophils Percent Auto 1.5 % (0-4); Hematocrit 42.2 % (42.0-52.0); Hemoglobin 14.2 g/dl (14.0-18.0); Imm Gran Abs Auto 0.01 X10*3/uL (0.00-0.03); Imm Gran Pct Auto 0.2 % (0.0-0.4); Lymphocytes Absolute Auto 2.5 X10*3/uL (1.2-4.9); Lymphocytes Percent Auto 37.8 % (20-40); Mean Corpuscular HGB Conc 33.6 g/dl (31.0-36.0); Mean Corpuscular Hemoglobin 33.2 pg (27.0-33.0); Mean Corpuscular Volume 98.6 fL (80.0-98.0); Mean Platelet Volume 9.9 fL (9.4-12.4); Monocytes Absolute Auto 0.6 X10*3/uL (0.1-1.2); Monocytes Percent Auto 8.8 % (2-11); Neutrophils Absolute Auto 3.4 x10*3/uL (2.0-8.3); Neutrophils Percent Auto 51.2 % (45-73); Platelet Count 214 X10*3/uL (160-400); Red Blood Count 4.28 X10*6/uL (4.60-5.80); White Blood Count 6.6 X10*3/uL (4.8-10.8)
[2021-11-07 13:17] LABS: Alanine Aminotransferase 21 U/L (0-40); Albumin Level 3.8 g/dL (3.5-5.0); Alkaline Phosphatase 103 U/L (39-117); Anion Gap 12 (12-20); Aspartate Amino Transferase 21 U/L (5-37); Bilirubin Direct 0.4 mg/dL (0.0-0.5); Blood Urea Nitrogen 29 mg/dL (9-16); Calcium 9.8 mg/dL (8.4-10.2); Carbon Dioxide 27 mmol/L (22-29); Chloride 106 mmol/L (96-108); Creatinine Clr Calc Pharmacy 67.9; Estimated Glomerular Filt Rate 54; Glucose Random 84 mg/dL (60-115); Potassium 4.9 mmol/L (3.3-5.1); Sodium 140 mmol/L (135-145); Total Protein 7.2 g/dL (6.5-8.0)
--- NOTE | 2021-11-07 14:54 | PC.NURSE ---
Awaiting for debi short to evaluate for neuro prior to discharge.
--- NOTE | 2021-11-07 14:59 | PC.NURSE ---
Gonzalez at bedside now.
--- NOTE | 2021-11-07 15:00 | PC.NURSE ---
med administration delayed due to needing to come from pharmacy
[2021-11-07] MEDS: SUMAtriptan succinate 50 MG TABLET PO (15:04)
[2021-11-07 15:14] VITALS: BP 125/83; PULSE 62; RESP 18; O2SAT 93
--- NOTE | 2021-11-07 15:57 | PM.NEUROCN ---
History of Present Illness Data of Consult Service Date: 11/07/21 Primary Care Provider: Unknown Physician HPI Reason for consult: Headache and seizure disorder 71 years old man with history of prostate cancer and extensive microvascular ischemic changes of brain probably suffered from complex partial seizure disorder presenting as staring and unresponsiveness episodes and headaches. He also reportedly has suffered from headaches at least for couple of years. More recently headaches were occurring almost daily and lasting few hours. Typically he was waking up with a headache. He denied taking any xapn-jsm-turxlcw medicine for headache treatment. He denied any cold or flu-like illness. Review of Systems Review of Systems: No recent cold or flu-like illness or trauma PMFSH Past Medical History Medical History Bladder cancer Bladder tumor Bone cancer Cerebral microvascular disease Elevated cholesterol Hematuria HTN (hypertension) Prostate CA Tremor Surgical History Surgical History H/O prostate biopsy History of cystoscopy Social History Social History Household Members: Spouse Housing: House Are you a primary care transitions manager to a significant other at home: No Do you presently have visiting nurse or other home services: Yes Alcohol intake: never Patient Tobacco Use Status: Never used Tobacco Second Hand Smoke Exposure: No Advance Directives: No Advance Directives Information Provided: Yes service: No Current occupational status: retired Meds Allergies Allergy/AdvReac Type Severity Reaction Status Date / Time oxycodone [Percocet] AdvReac Intermediate face got Verified 08/11/21 10:25 really red Home Medications Medication Instructions Recorded Confirmed Last Taken Type atorvastatin 40 mg tablet 1 tab PO BEDTIME 07/19/20 07/10/21 07/09/21 History aspirin 81 mg tablet,delayed 81 mg PO DAILY 12/07/20 07/10/21 07/10/21 History release cholecalciferol (vitamin D3) 50 1 cap PO DAILY 12/07/20 07/10/21 07/10/21 History mcg (2,000 unit) capsule riboflavin (vitamin B2) 100 mg 200 mg PO QAM 01/05/21 07/10/21 07/10/21 History tablet enzalutamide 40 mg capsule (Xtandi) 80 mg PO BID 05/14/21 07/10/21 07/10/21 History magnesium 200 mg tablet 400 mg PO BID 05/14/21 07/10/21 07/10/21 History tamsulosin 0.4 mg capsule 1 cap PO BID 07/10/21 07/10/21 07/10/21 History propranolol 80 mg capsule,24 80 mg PO DAILY 08/11/21 Unknown History hr,extended release Physical Exam Vital Signs: Vital Signs: Last Vital Signs Temp 98.3 F 11/07/21 13:00 Pulse 62 11/07/21 15:14 Resp 18 11/07/21 15:14 BP 125/83 11/07/21 15:14 Pulse Ox 93 11/07/21 15:14 BMI result Body Mass Index 33.1 Neuro: Other: He was alert and awake with normal spontaneity of speech fluency comprehension and affect. Face was symmetrical. Visual trujillo are full. Pupils were round reactive. Deep tendon reflexes were absent with flat plantars. Results Labs CBC & Chem 7: 11/07/21 12:51 11/07/21 12:51 Labs: Short CBC 11/07/21 Range/Units 12:51 WBC 6.6 (4.8-10.8) X10*3/uL Hgb 14.2 (14.0-18.0) g/dl Hct 42.2 (42.0-52.0) % Plt Count 214 (160-400) X10*3/uL BMP 11/07/21 12:51 Sodium 140 Potassium 4.9 Chloride 106 Carbon Dioxide 27 BUN 29 H Creatinine 1.32 Calcium 9.8 Liver Function 11/07/21 Range/Units 12:51 Total Bilirubin 1.0 (0.0-1.0) mg/dL Direct Bilirubin 0.4 (0.0-0.5) mg/dL AST 21 (5-37) U/L ALT 21 (0-40) U/L Alkaline Phosphatase 103 (39-117) U/L Albumin 3.8 (3.5-5.0) g/dL Noncontrast head CT reveals significant microvascular ischemic changes of brain. An EEG done couple of days ago did not reveal any epileptic tendency. It was revealing generalized slowing. Assessment and Plan (1) Migraine headache without aura: Status: Acute 71 years old man with past medical history of prostate cancer, X extensive microvascular ischemic changes of brain, clinical symptoms suggestive of complex partial seizure disorder though 1 EEG was negative, and migraine type of headaches. He also had an MRI of brain in June of last year that did not reveal any other pathology. CTA of brain and neck did not reveal any vascular disease. At this time my recommendation is to continue levetiracetam 500 mg twice a day and add topiramate 25 mg twice a day for migraine control. He could continue to use Fioricet as needed but not more than 2 times a week. (2) Seizure disorder: Status: Acute (3) Cerebral microvascular disease: Status: Acute Procedures Date of Service Date of Service: 11/07/21
[2021-11-07] MEDS: Topiramate 25 MG TABLET PO (16:23)
[2021-11-11 06:12] LABS: Levetiracetam Keppra 17.1 mcg/mL (12.0-46.0)
== END 2021-11-07 16:44 | disposition home or self-care (01) ==
PROVIDERS: Emergency Provider Emergency Medicine
DX: G43.009 Migraine without aura, not intractable, without status migrainosus (principal); I10 Essential (primary) hypertension; E78.5 Hyperlipidemia, unspecified; Z79.02 Long term (current) use of antithrombotics/antiplatelets; Z79.899 Other long term (current) drug therapy; Z79.82 Long term (current) use of aspirin; Z85.51 Personal history of malignant neoplasm of bladder; Z85.830 Personal history of malignant neoplasm of bone; Z85.46 Personal history of malignant neoplasm of prostate; Z87.440 Personal history of urinary (tract) infections
CPT/HCPCS: 36415; 80048; 80076; 80177; 85025; 93005; 99284

== ENCOUNTER → 2021-11-16 09:59 | Outpatient (REF) | payer MEDICARE, SELFPAY ==
--- NOTE | ~2021-11-16 | NM_ITS ---
EXAMINATION: NM BONE SCAN OF THE WHOLE BODY CLINICAL INFORMATION: Malignant neoplasm of prostate. COMPARISON: The previous bone scan dated 03/07/2021 is available for comparison. A radiograph of the chest dated 11/05/2021 is available for comparison. TECHNIQUE: Multiple gamma scintillation camera images of the whole body were performed 3 hours following the intravenous administration of 36 mCi Tc-99m MDP. FINDINGS: In the head, no significant abnormalities are present. In the thoracic cage and upper extremities, there is mildly increased activity in the acromioclavicular and sternoclavicular joints bilaterally and mildly in the glenohumeral articulation of the right shoulder and in a small mild focus in the lateral subacromial region of the right humeral head. Some residual radiopharmaceutical at the injection site in the right antecubital fossa is noted. In the spine, a mild thoracolumbar kyphoscoliosis is present with upper lumbar convexity to the right. There is minimally increased activity in the right side of the lumbar spine at L4. In the pelvis, there is very minimal, barely perceptibly increased activity in the superior aspect of the posterior right iliac bone adjacent to the sacroiliac joint. There is minimally increased activity in the superior lip of the right acetabulum and in the inferior aspect of the left acetabulum. In the lower extremities, there is a small mild focus of increased activity present in the medial compartment of the left knee. There is a mild diffuse increase in activity in the cortical bone of the mid tibial shafts bilaterally, and this is slightly more prominent on the left. There is a small focus of minimally increased activity present in the proximal left foot. No other definite bony abnormalities are noted. The urinary bladder and faint visualization of both kidneys are noted. Compared to the previous bone scan dated 03/07/2021, the activity in the posterior right iliac bone is less intense on the current study. The remainder the scan is not significantly changed. NM/AK bone scan whole body IMPRESSION: 1. Continued improvement in abnormality in the posterior right iliac bone. This is consistent with continued bone remodeling at a prior metastatic site. No new abnormalities suspicious for metastatic disease are present. 2. A few additional mild nonspecific abnormalities are noted as described above and these are all likely arthritic or traumatic in etiology. None of these abnormalities is strongly suspicious for metastatic disease.
== END ==
LOC: HO.NUCMED 09:59
PROVIDERS: Visit Provider Urology
DX: C61 Malignant neoplasm of prostate (principal); C79.51 Secondary malignant neoplasm of bone
CPT/HCPCS: 78306; A9503

== ENCOUNTER 2021-12-14 07:24 | Outpatient (REF) | payer MEDICARE, SELFPAY ==
[2021-12-14 09:06] LABS: Prostate Specific Antigen 0.42 ng/mL (<0.05-4.0)
[2021-12-19 10:07] LABS: Testosterone, Total 122 ng/dL (250-1100)
== END 2021-12-14 07:25 | disposition home or self-care (01) ==
LOC: HO.LAB 07:24
PROVIDERS: PCP Family Medicine; Visit Provider Urology
DX: Z12.5 Encounter for screening for malignant neoplasm of prostate (principal); C61 Malignant neoplasm of prostate; C79.51 Secondary malignant neoplasm of bone
CPT/HCPCS: 36415; 84153; 84403

== ENCOUNTER → 2021-12-23 08:25 | Outpatient (BNVA) | payer MEDICARE, SELFPAY | PROVIDERS: PCP Family Medicine; Visit Provider Urology | DX: C61 Malignant neoplasm of prostate (principal); C79.51 Secondary malignant neoplasm of bone | CPT/HCPCS: Q3014 ==

== ENCOUNTER 2022-01-03 10:35 | Emergency (ER) | payer MEDICARE, SELFPAY ==
--- NOTE | ~2022-01-03 | CT_ITS ---
EXAMINATION: CT HEAD WITHOUT CONTRAST CLINICAL INFORMATION: Seizure. Patient on chemotherapy. COMPARISON: Previous head CT most recent October 2021 TECHNIQUE: Contiguous axial imaging was performed from the skull base to vertex without intravenous administration of contrast. This CT examination was performed using dose optimization techniques as appropriate, variously including the following: *Automated exposure control *Adjustment of mA and/or kV according to patient size (this includes techniques or standardized protocols for targeted exams where dose is matched to indication/reason for exam; i.e. extremities or head) *Use of iterative reconstruction technique DLP: 851 mGy-cm FINDINGS: There is no evidence of an extra-axial collection. There is no evidence of intra-axial or extra-axial hemorrhage. The ventricles and extra-axial CSF spaces are appropriate. There is extensive nonspecific periventricular white matter disease. This is similar to previous exam. No mass, mass effect or infarct is seen. Review of bone windows is normal. Visualized paranasal sinuses, mastoid air cells and middle ears are clear. CT/CT head/brain wo con IMPRESSION: No acute intracranial findings. Extensive periventricular white matter disease similar to previous exams.
[2022-01-03 10:50] VITALS: BP 138/79; BP 142/68; PULSE 59; RESP 18; TEMP 36.8; O2SAT 97; BMI 30.4
--- NOTE | 2022-01-03 12:20 | ED_ITS ---
HPI - Headache General Chief Complaint: Headache Stated Complaint: HEAD PAIN Time Seen by Provider: 01/03/22 11:12 Source: patient Mode of arrival: ambulatory Limitations: no limitations History of Present Illness HPI Narrative: 71-year-old male with a history of seizures, metastatic prostate cancer, complex migraines, and cerebral microvascular ischemic disease, presents for headache that started gradually 4 days ago. Today it is worse, he states it is all all over his entire head, states the pain is an 8/10. States his vision was blurry earlier, he does not have blurry vision now. No nausea or vomiting. States he had a seizure 4 days ago, witnessed by his . States he is on Topamax for his headache, Keppra for his seizures. I see in his chart he is also prescribed Fioricet, and it sounds like patient has not taken that. Patient is not entirely clear on all of his medications. Patient denies any focal neuro symptoms, states he feels generally weak. States he almost fell over when he went to the bathroom today, and did not sharp because he felt like he was too weak. Patient is on chemotherapy MD elicited complaint: headache Pertinent past history: migraines Onset (ago): day(s) (4) Onset description: gradually Location: diffuse Severity: severe Pain scale (0-10): 8 Related Data Home Medications Medication Instructions Recorded Confirmed atorvastatin 40 mg tablet 1 tab PO BEDTIME 07/19/20 07/10/21 aspirin 81 mg tablet,delayed 81 mg PO DAILY 12/07/20 07/10/21 release cholecalciferol (vitamin D3) 50 1 cap PO DAILY 12/07/20 07/10/21 mcg (2,000 unit) capsule riboflavin (vitamin B2) 100 mg 200 mg PO QAM 01/05/21 07/10/21 tablet magnesium 200 mg tablet 400 mg PO BID 05/14/21 07/10/21 tamsulosin 0.4 mg capsule 1 cap PO BID 07/10/21 07/10/21 propranolol 80 mg capsule,24 80 mg PO DAILY 08/11/21 hr,extended release levetiracetam 250 mg tablet 250 mg PO Q12H 12/23/21 Previous Rx's Medication Instructions Recorded propranolol 60 mg capsule,24 60 mg PO DAILY #30 cap 07/11/21 hr,extended release topiramate 25 mg tablet 25 mg PO BEDTIME #30 tab 07/13/21 metoclopramide HCl 10 mg tablet 10 mg PO Q6H PRN #14 tab 10/10/21 (Reglan) topiramate 50 mg tablet 50 mg PO BEDTIME #30 tab 10/10/21 levetiracetam 500 mg tablet 500 mg PO BID #60 tab 11/05/21 (Keppra) [id number]-meoiobzadinwp-bpbizxyx 1 cap PO TID PRN #7 cap 11/07/21 50 mg-300 mg-40 mg capsule (Fioricet) topiramate 25 mg tablet 25 mg PO BID #60 tab 11/07/21 prednisone 2.5 mg tablet 2.5 mg PO BID 30 Days #60 tab 12/23/21 abiraterone 250 mg tablet 1,000 mg PO DAILY 30 Days #120 tab 12/30/21 dexamethasone 6 mg tablet 6 mg PO DAILY 3 Days #3 tab 01/03/22 Allergies Allergy/AdvReac Type Severity Reaction Status Date / Time oxycodone [Percocet] AdvReac Intermediate face got Verified 12/23/21 08:26 really red Review of Systems Constitutional: Constitutional: Denies body ache(s), Denies chills, Denies fatigue, Denies fever(s), Reports headache(s), Denies malaise and Reports weakness Eyes: Eyes: Reports blurry vision and Denies diplopia ENT: Denies vertigo, Denies dizziness, Denies otalgia, Reports headache(s), Denies mouth pain, Denies post nasal drip, Denies sinus pain, Denies sinus pressure, Denies sore throat and Denies throat swelling Cardiovascular: Cardiovascular: Denies chest pain, Denies syncope, Denies leg edema, Denies lightheadedness, Denies Loss of Consciousness, Denies palpitations and Denies dyspnea Respiratory: Respiratory: Denies chest congestion, Denies cough and Denies dyspnea Gastrointestinal: Gastrointestinal: Denies abdominal pain, Denies hematochezia, Denies constipation, Denies diarrhea and Denies vomiting Genitourinary: Genitourinary: Reports no additional male genitourinary complaints Musculoskeletal: Musculoskeletal: Reports no additional musculoskeletal co mplaints and Denies tingling Neurologic: Denies Abnormal speech present, Denies confusion, Denies vertigo, Denies dizziness, Denies syncope, Reports headache(s), Denies focal weakness, Reports seizure-like activity, Denies Sensory deficit (Neuro), Denies tingling, Denies paresthesias and Reports weakness Psychiatric: Psychiatric: Denies anxiety, Denies confusion and Denies depression Endocrine: Endocrine: Denies fatigue and Denies palpitations Allergic/Immunologic: Allergic/Immunologic: Denies throat swelling PMFSH Past Medical History Medical History Bladder cancer Bladder tumor Bone cancer Cerebral microvascular disease Elevated cholesterol Hematuria HTN (hypertension) Prostate CA Tremor Surgical History H/O prostate biopsy History of cystoscopy Social History Social History Household Members: Spouse Housing: House Are you a primary youth career specialist to a significant other at home: No Do you presently have visiting nurse or other home services: Yes Alcohol intake: never Patient Tobacco Use Status: Never used Tobacco Second Hand Smoke Exposure: No Use of substances other than those prescribed or required for medical reasons: No Advance Directives: Yes Advance Directives Information Provided: No Advance Directives on File: No service: No Current occupational status: retired Physical Exam Vital Signs: Vital Signs: Last Vital Signs Temp 98.2 F 01/03/22 10:50 Pulse 55 01/03/22 14:00 Resp 18 01/03/22 14:00 BP 130/71 01/03/22 14:00 Pulse Ox 96 01/03/22 14:00 BMI result Body Mass Index 30.4 Const: General: No confusion Nutritional Appearance: well nourished Orientation/consciousness: patient oriented x3 and No confusion Limitations: no limitations HEENT: Head: Yes normal to inspection, Yes normocephalic and Yes atraumatic Ears: hearing grossly normal bilaterally, external ears normal, TM's normal bilaterally and EAC's normal General nose exam: Normal external nose present Face and sinus: Yes normal facial exam and Yes sinuses nontender Mouth: Normal oral and palatal mucosa present Throat: Yes posterior oropharynx normal Eyes: Conjunctivae: conjunctivae normal Pupils: Equal, round and reactive pupils present EOM: EOMs intact bilaterally Neck: Neck: Yes full ROM, Yes no lymphadenopathy and Yes supple Resp: Effort & Inspection: normal respiratory effort and able to speak in complete sentences Auscultation: clear to auscultation bilaterally, no crackles, no rales, no rhonchi and no wheezes Cardio: Rate: regular rate Rhythm: regular rhythm Heart sounds: S1 normal heart sound present and S2 normal heart sound present GI: Inspection: Yes normal to inspection Palpation (GI): Soft to palpation, nontender, no guarding and not rigid Percussion: Yes normal to percussion Auscultation: normal bowel sounds Skin: General skin exam: no rashes or lesions noted Neuro: General: patient oriented x3, No confusion and Unable to assess gait (pt felt too weak to walk) Cranial nerves: Yes CN's II-XII intact bilaterally, Yes Facial sensation intact/muscles of mastication intact, Yes Equal, round and reactive pupils present, Yes Normal accommodation reflex present, Yes Bilaterally intact EOM present, Yes Nystagmus not present, Yes Normal facial strength present, Yes Midline tongue present, Yes Ability to bilaterally rotate head present and Yes Ability to bilaterally elevate shoulders present Cognition (Neuro): normal cognition Speech: No Abnormal speech present Gait exam (Neuro): Unable to assess gait (pt felt too weak to walk) Motor exam (neuro): 5/5 motor strength present throughout, Pronator motor function not present and Tremors during motor activity present (mild) Sensory Exam: No Sensory deficit (Neuro) Deep tendon reflexes (DTR's): Right brachioradialis reflex intensity grade: 1+, Left brachioradialis reflex intens ity grade: 1+, Right patellar reflex intensity grade: 1+ and Left patellar reflex intensity grade: 1+ Coordination: [id number]-hg-qtdv test normal Romberg Test: Negative Pupils: Normal pupillary reactivity/response: bilater al Extrem: General: Yes normal to inspection and Yes full ROM Psych: Appearance: grossly normal Affect: normal affect Attitude: cooperative Thought process: Normal thought process present Course Course Course Narrative: 71-year-old male with past medical history of metastatic prostate cancer, complex migraines, seizure, and cerebral microvascular ischemic disease presents for 4 days of worsening headache. Patient had a seizure 4 days ago that was witnessed by his . States he had blurry vision this morning that has now resolved. States he has blurry vision with his migraines. States he is taking his Topamax for headache, it is not working. On exam, patient has no focal neuro deficits, patient was weak and shaky so I did not walk him. Will CT head for mets or bleeds Will get labs and urine, treating patient with migraine cocktail of Toradol, Reglan, Benadryl. Reevaluation(s) Reevaluation #1: On re-examination, patient is feeling much better, states his headache is almost entirely gone. Labs only remarkable for a mildly elevated potassium of 5.2, bilirubin 1.2 Awaiting results of head CT Reevaluation #2: CT/CT head/brain wo con IMPRESSION: No acute intracranial findings. Extensive periventricular white matter disease similar to previous exams. Gave Dexamethasone and a prescription for same so patient does not get rebound headache. I gave return precaution of sudden severe headache, visual changes, focal neuro deficits, patient should return immediately to emergency room. Advised patient to call neurologist for follow-up appointment. MDM - Headache Lab Data Result diagrams: 01/03/22 12:23 01/03/22 12:23 Labs: Lab Results 01/03/22 01/03/22 01/03/22 Range/Units 12:23 12:23 14:49 WBC 6.5 (4.8-10.8) X10*3/uL RBC 4.33 L (4.60-5.80) X10*6/uL Hgb 13.9 L (14.0-18.0) g/dl Hct 42.7 (42.0-52.0) % MCV 98.6 H (80.0-98.0) fL MCH 32.1 (27.0-33.0) pg MCHC 32.6 (31.0-36.0) g/dl RDW 13.2 (11.0-16.0) % Plt Count 268 D (160-400) X10*3/uL MPV 9.9 (9.4-12.4) fL Immature Gran % (Auto) 0.3 (0.0-0.4) % Neut % (Auto) 54.5 (45-73) % Lymph % (Auto) 35.3 (20-40) % [place] % (Auto) 7.3 (2-11) % Eos % (Auto) 1.7 (0-4) % Baso % (Auto) 0.9 (0-2) % Lymph # (Auto) 2.3 (1.2-4.9) X10*3/uL [place] # (Auto) 0.5 (0.1-1.2) X10*3/uL Eos # (Auto) 0.1 (0.0-0.4) X10*3/uL Baso # (Auto) 0.1 (0.0-0.2) X10*3/uL Abs Immat Gran (auto) 0.02 (0.00-0.03) X10*3/uL Absolute Neuts (auto) 3.5 (2.0-8.3) x10*3/uL Absolute Nucleated RBC 0.000 (0.0-0.012) X10*3/uL Nucleated RBC % (auto) 0.0 (0.0-0.2) /100WBC Sodium 140 (135-145) mmol/L Potassium 5.2 H (3.3-5.1) mmol/L Chloride 108 (96-108) mmol/L Carbon Dioxide 25 (22-29) mmol/L Anion Gap 12 (12-20) BUN 33 H (9-16) mg/dL Creatinine 1.39 (0.5-1.4) mg/dL Estim Creat Clear Calc 61.9 Estimated GFR 51 Random Glucose 106 (60-115) mg/dL Calcium 9.7 (8.4-10.2) mg/dL Total Bilirubin 1.2 H (0.0-1.0) mg/dL AST 19 (5-37) U/L ALT 18 (0-40) U/L Alkaline Phosphatase 112 (39-117) U/L Total Protein 7.1 (6.5-8.0) g/dL Albumin 3.8 (3.5-5.0) g/dL Urine Color YELLOW Urine Appearance CLEAR Urine pH 6.0 (5.0-8.0) Ur Specific [place] 1.010 (1.005-1.025) Urine Protein NEG (NEG-TRACE) MG/DL Urine Glucose (UA) NEG (NEG) MG/DL Urine Ketones NEG (NEG) MG/DL Urine Blood NEG (NEG) Urine Nitrite NEG (NEG) Ur Leukocyte Esterase NEG (NEG) Discharge Plan Discharge Clinical Impression: Migraine Patient Disposition: Home, Self-Care Instructions: Migraine Headache (ED) Additional Instructions: Please call your neurologist for follow-up appointment. Please call them today or early tomorrow morning. Please take dexamethasone starting tomorrow, take 1 pill once a day for the next 3 days. This will help with a rebound headache. Please return to the emergency room if you have any sudden severe headache, visual changes, if you feel weak or numb on 1 side or the other, or for any new or concerning symptoms. Prescriptions: New dexamethasone 6 mg tablet 6 mg PO DAILY 3 Days Qty: 3 0RF No Action abiraterone 250 mg tablet 1,000 mg PO DAILY 30 Days Qty: 120 5RF Rx Instructions: must be taken on empty stomach, at least 1 hr before or 2 hrs after a meal/food cholecalciferol (vitamin D3) 50 mcg (2,000 unit) capsule 1 cap PO DAILY 0RF aspirin 81 mg Tablet,Delayed Release (Dr/Ec) 81 mg PO DAILY 0RF magnesium 200 mg Tablet 400 mg PO BID 0RF atorvastatin 40 mg tablet 1 tab PO BEDTIME 0RF tamsulosin 0.4 mg capsule 1 cap PO BID 0RF propranolol 60 mg capsule,extended release 24 hr 60 mg PO DAILY Qty: 30 0RF topiramate 25 mg Tablet 25 mg PO BEDTIME Qty: 30 0RF topiramate 25 mg tablet 25 mg PO BID Qty: 60 0RF [id number] [Fioricet] 50-300-40 mg capsule 1 cap PO TID PRN (Reason: pain) Qty: 7 0RF Rx Instructions: with no more than 2 days per week topiramate 50 mg tablet 50 mg PO BEDTIME Qty: 30 0RF metoclopramide HCl [Reglan] 10 mg tablet 10 mg PO Q6H PRN (Reason: headaches,nausea, vomiting) Qty: 14 0RF levetiracetam [Keppra] 500 mg tablet 500 mg PO BID Qty: 60 0RF propranolol 80 mg capsule,extended release 24 hr 80 mg PO DAILY 0RF riboflavin (vitamin B2) 100 mg tablet 200 mg PO QAM 0RF levetiracetam 250 mg tablet 250 mg PO Q12H 0RF prednisone 2.5 mg tablet 2.5 mg PO BID 30 Days Qty: 60 5RF
[2022-01-03 12:34] LABS: MANUAL DIFF FLAG NO
[2022-01-03 12:36] LABS: Basophils Absolute Auto 0.1 X10*3/uL (0.0-0.2); Basophils Percent Auto 0.9 % (0-2); Eosinophils Absolute Auto 0.1 X10*3/uL (0.0-0.4); Eosinophils Percent Auto 1.7 % (0-4); Hematocrit 42.7 % (42.0-52.0); Hemoglobin 13.9 g/dl (14.0-18.0); Imm Gran Abs Auto 0.02 X10*3/uL (0.00-0.03); Imm Gran Pct Auto 0.3 % (0.0-0.4); Lymphocytes Absolute Auto 2.3 X10*3/uL (1.2-4.9); Lymphocytes Percent Auto 35.3 % (20-40); Mean Corpuscular HGB Conc 32.6 g/dl (31.0-36.0); Mean Corpuscular Hemoglobin 32.1 pg (27.0-33.0); Mean Corpuscular Volume 98.6 fL (80.0-98.0); Mean Platelet Volume 9.9 fL (9.4-12.4); Monocytes Absolute Auto 0.5 X10*3/uL (0.1-1.2); Monocytes Percent Auto 7.3 % (2-11); Neutrophils Absolute Auto 3.5 x10*3/uL (2.0-8.3); Neutrophils Percent Auto 54.5 % (45-73); Platelet Count 268 X10*3/uL (160-400); Red Blood Count 4.33 X10*6/uL (4.60-5.80); Red Cell Distribution Width 13.2 % (11.0-16.0); White Blood Count 6.5 X10*3/uL (4.8-10.8)
[2022-01-03] MEDS: diphenhydrAMINE HCL 50 MG/ML VIAL 25 MG IVPUSH (12:52)
[2022-01-03] MEDS: Ketorolac Tromethamine 15 MG/ML VIAL IVPUSH (12:52)
[2022-01-03] MEDS: 0.9 % Sodium Chloride 1,000 ML 999 ML IV (12:53)
[2022-01-03] MEDS: Metoclopramide HCl 10 MG/2 ML VIAL IVPUSH (12:53)
[2022-01-03 12:54] LABS: Alanine Aminotransferase 18 U/L (0-40); Albumin Level 3.8 g/dL (3.5-5.0); Alkaline Phosphatase 112 U/L (39-117); Anion Gap 12 (12-20); Aspartate Amino Transferase 19 U/L (5-37); Bilirubin Total 1.2 mg/dL (0.0-1.0); Blood Urea Nitrogen 33 mg/dL (9-16); Calcium 9.7 mg/dL (8.4-10.2); Carbon Dioxide 25 mmol/L (22-29); Chloride 108 mmol/L (96-108); Creatinine Clr Calc Pharmacy 61.9; Estimated Glomerular Filt Rate 51; Glucose Random 106 mg/dL (60-115); Potassium 5.2 mmol/L (3.3-5.1); Sodium 140 mmol/L (135-145); Total Protein 7.1 g/dL (6.5-8.0)
[2022-01-03 14:00] VITALS: BP 130/71; PULSE 55; RESP 18; O2SAT 96
--- NOTE | 2022-01-03 14:46 | PC.NURSE ---
PT STATES FEELING MUCH BETTER AFTER MEDICATIONS AND IS FEELING LIKE HE COULD GO HOME PROVIDER AWARE
[2022-01-03 15:01] LABS: Appearance Urine CLEAR; Color Urine YELLOW; Glucose Urine UA NEG (NEG); Leukocyte Esterase Urine NEG (NEG); Nitrite Urine NEG (NEG); Urine Blood NEG (NEG); Urine Ketones NEG (NEG); Urine Protein NEG (NEG-TRACE)
== END 2022-01-03 15:32 | disposition home or self-care (01) ==
PROVIDERS: Physician Assistant; Emergency Provider Emergency Medicine Emergency Medical Services; PCP Family Medicine
DX: G43.909 Migraine, unspecified, not intractable, without status migrainosus (principal); H53.8 Other visual disturbances; R53.1 Weakness; R25.1 Tremor, unspecified; C61 Malignant neoplasm of prostate; C67.9 Malignant neoplasm of bladder, unspecified; C79.51 Secondary malignant neoplasm of bone; Z92.21 Personal history of antineoplastic chemotherapy; Z79.02 Long term (current) use of antithrombotics/antiplatelets; Z79.82 Long term (current) use of aspirin
CPT/HCPCS: 36415; 70450; 80053; 81003; 85025; 96361; 96374; 96375; 99284; 99285; J1200; J1885; J2765

== ENCOUNTER 2022-01-21 16:40 | Emergency (ER) | payer OTHER, SELFPAY ==
--- NOTE | ~2022-01-21 | XR_ITS ---
EXAMINATION: XR chest 1V CLINICAL INFORMATION: Reason for Exam l costal margin pain with hx of prostate ca COMPARISON: Chest radiograph 11/05/2021 TECHNIQUE: One view of the chest XR/XR chest 1V FINDINGS/IMPRESSION: Few scattered linear airspace opacities favored to reflect atelectasis, and similar to prior. No pneumothorax. No pleural effusion. Normal cardiomediastinal silhouette. No acute osseous abnormality however given provided history of malignancy if any clinical concern for osseous disease a CT could be obtained.
[2022-01-21 16:53] VITALS: BP 140/80; PULSE 60; O2SAT 99
[2022-01-21 17:01] VITALS: BP 123/70; PULSE 61; RESP 20; TEMP 36.6; O2SAT 96; BMI 29.0
--- NOTE | 2022-01-21 17:08 | ED_ITS ---
HPI - Abdominal Pain General Chief Complaint: Abdominal Pain Stated Complaint: L FLANK LUMP PAINFUL TO TOUCH Time Seen by Provider: 01/21/22 17:08 Source: patient Mode of arrival: ambulatory Limitations: no limitations History of Present Illness HPI narrative: Patient with history of prostate cancer with Mets last bone scan done on 12/06 showed no active bone metastasis. Patient complaining of pain in left costal margin for last few weeks with slight swelling of the soft tissue today pain got worse and she came here no nausea no vomiting no shortness of breath no abdominal pain no fever no chills patient received 100 mcg of fentanyl by EMS Related Data Home Medications Medication Instructions Recorded Confirmed atorvastatin 40 mg tablet 1 tab PO BEDTIME 07/19/20 07/10/21 aspirin 81 mg tablet,delayed 81 mg PO DAILY 12/07/20 07/10/21 release cholecalciferol (vitamin D3) 50 1 cap PO DAILY 12/07/20 07/10/21 mcg (2,000 unit) capsule riboflavin (vitamin B2) 100 mg 200 mg PO QAM 01/05/21 07/10/21 tablet magnesium 200 mg tablet 400 mg PO BID 05/14/21 07/10/21 tamsulosin 0.4 mg capsule 1 cap PO BID 07/10/21 07/10/21 propranolol 80 mg capsule,24 80 mg PO DAILY 08/11/21 hr,extended release levetiracetam 250 mg tablet 250 mg PO Q12H 12/23/21 Previous Rx's Medication Instructions Recorded propranolol 60 mg capsule,24 60 mg PO DAILY #30 cap 07/11/21 hr,extended release topiramate 25 mg tablet 25 mg PO BEDTIME #30 tab 07/13/21 metoclopramide HCl 10 mg tablet 10 mg PO Q6H PRN #14 tab 10/10/21 (Reglan) topiramate 50 mg tablet 50 mg PO BEDTIME #30 tab 10/10/21 levetiracetam 500 mg tablet 500 mg PO BID #60 tab 11/05/21 (Keppra) [id number]-vretmdaygpylo-hggnomlq 1 cap PO TID PRN #7 cap 11/07/21 50 mg-300 mg-40 mg capsule (Fioricet) topiramate 25 mg tablet 25 mg PO BID #60 tab 11/07/21 prednisone 2.5 mg tablet 2.5 mg PO BID 30 Days #60 tab 12/23/21 abiraterone 250 mg tablet 1,000 mg PO DAILY 30 Days #120 tab 12/30/21 dexamethasone 6 mg tablet 6 mg PO DAILY 3 Days #3 tab 01/03/22 lidocaine 4 % topical patch 1 patch TOPICAL DAILY PRN #10 ea 01/21/22 (Aspercreme (lidocaine)) tramadol 50 mg tablet 50 mg PO Q6H PRN #20 tab 01/21/22 Allergies Allergy/AdvReac Type Severity Reaction Status Date / Time oxycodone [Percocet] AdvReac Intermediate face got Verified 12/23/21 08:26 really red Review of Systems Review of Systems Yes all other systems are reviewed and are negative [facility] Past Medical History Medical History Bladder cancer Bladder tumor Bone cancer Cerebral microvascular disease Elevated cholesterol Hematuria HTN (hypertension) Prostate CA Tremor Surgical History H/O prostate biopsy History of cystoscopy Social History Social History Household Members: Spouse Housing: House Are you a primary family member caretaker to a significant other at home: No Do you presently have visiting nurse or other home services: Yes Alcohol intake: never Patient Tobacco Use Status: Never used Tobacco Second Hand Smoke Exposure: No Use of substances other than those prescribed or required for medical reasons: No Advance Directives: No Advance Directives Information Provided: No service: No Current occupational status: retired Physical Exam ED Vital Signs: Vital Signs - 24 hr 01/21/22 17:01 01/21/22 18:04 Temperature 97.8 F Pulse Rate 61 59 Respiratory Rate 20 20 Blood Pressure 123/70 117/64 Pulse Oximetry 96 98 BMI result Body Mass Index 29.0 Const General: no acute distress Orientation/consciousness: patient oriented x3 HENMT Head: Yes normal to inspection, Yes normocephalic and Yes atraumatic Eyes General: appearance normal, both eyes and all related structures Chest Chest/axillae images: 1. Tenderness at the costal margin with slight soft tissue swelling Resp Effort & Inspection: normal respiratory effort Auscultation: clear to auscultation bilaterally Cardio Palpation: normal PMI Rate: regular rate Rhythm: regular rhythm Heart sounds: S1 normal heart sound present and S2 normal heart sound present GI Inspection: Yes normal to inspection Palpation (GI): Soft to palpation, nontender and no masses Auscultation: normal bowel sounds General: Yes no CVA tenderness Back/Spine/Pelvis Back: no CVA tenderness Neuro General: patient oriented x3 and no focal motor deficits Discharge Plan Discharge Clinical Impression: Musculoskeletal chest pain Patient Disposition: Home, Self-Care Instructions: Chest Wall Pain (ED) Additional Instructions: Apply Lidoderm patch as prescribed Pain medicine as prescribed Follow-up with your PCP Prescriptions: New lidocaine [Aspercreme (lidocaine HCl)] 4 % adhesive patch,medicated 1 patch topical DAILY PRN (Reason: pain) Qty: 10 0RF tramadol 50 mg tablet 50 mg PO Q6H PRN (Reason: pain) Qty: 20 0RF No Action abiraterone 250 mg tablet 1,000 mg PO DAILY 30 Days Qty: 120 5RF Rx Instructions: must be taken on empty stomach, at least 1 hr before or 2 hrs after a meal/food cholecalciferol (vitamin D3) 50 mcg (2,000 unit) capsule 1 cap PO DAILY 0RF aspirin 81 mg Tablet,Delayed Release (Dr/Ec) 81 mg PO DAILY 0RF magnesium 200 mg Tablet 400 mg PO BID 0RF atorvastatin 40 mg tablet 1 tab PO BEDTIME 0RF tamsulosin 0.4 mg capsule 1 cap PO BID 0RF propranolol 60 mg capsule,extended release 24 hr 60 mg PO DAILY Qty: 30 0RF topiramate 25 mg Tablet 25 mg PO BEDTIME Qty: 30 0RF topiramate 25 mg tablet 25 mg PO BID Qty: 60 0RF [id number] [Fioricet] 50-300-40 mg capsule 1 cap PO TID PRN (Reason: pain) Qty: 7 0RF Rx Instructions: with no more than 2 days per week dexamethasone 6 mg tablet 6 mg PO DAILY 3 Days Qty: 3 0RF topiramate 50 mg tablet 50 mg PO BEDTIME Qty: 30 0RF metoclopramide HCl [Reglan] 10 mg tablet 10 mg PO Q6H PRN (Reason: headaches,nausea, vomiting) Qty: 14 0RF levetiracetam [Keppra] 500 mg tablet 500 mg PO BID Qty: 60 0RF propranolol 80 mg capsule,extended release 24 hr 80 mg PO DAILY 0RF riboflavin (vitamin B2) 100 mg tablet 200 mg PO QAM 0RF levetiracetam 250 mg tablet 250 mg PO Q12H 0RF prednisone 2.5 mg tablet 2.5 mg PO BID 30 Days Qty: 60 5RF
[2022-01-21] MEDS: Lidocaine 4 % Patch ADH..PATCH 1 PATCH TRANSDERMA (18:03)
[2022-01-21 18:04] VITALS: BP 117/64; PULSE 59; RESP 20; O2SAT 98
== END 2022-01-21 19:35 | disposition home or self-care (01) ==
PROVIDERS: Emergency Provider Internal Medicine
DX: R07.89 Other chest pain (principal); R10.9 Unspecified abdominal pain; I10 Essential (primary) hypertension; E78.5 Hyperlipidemia, unspecified; Z79.02 Long term (current) use of antithrombotics/antiplatelets; Z79.82 Long term (current) use of aspirin; Z85.46 Personal history of malignant neoplasm of prostate; Z85.51 Personal history of malignant neoplasm of bladder; Z85.830 Personal history of malignant neoplasm of bone
CPT/HCPCS: 71045; 99283; 99284

== ENCOUNTER 2022-03-16 16:56 | Emergency (ER) | payer OTHER, SELFPAY ==
--- NOTE | ~2022-03-16 | XR_ITS ---
EXAMINATION: XR CHEST CLINICAL INFORMATION: Shortness of breath COMPARISON: 01/22/2020 TECHNIQUE: 2 views of the chest were obtained. FINDINGS: No significant abnormality is noted involving the heart, lungs, mediastinum, bony thorax or soft tissues. 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
[2022-03-16 17:13] VITALS: BP 134/70; PULSE 70; O2SAT 100; BMI 29.8
--- NOTE | 2022-03-16 17:36 | ECG_ITS ---
Test Reason : WEAKNESS Blood Pressure : / mmHG Vent. Rate : 057 BPM Atrial Rate : 057 BPM P-R Int : 148 ms QRS Dur : 098 ms QT Int : 450 ms P-R-T Axes : 019 -55 003 degrees QTc Int : 438 ms Poor data quality Sinus bradycardia Left axis deviation Abnormal ECG When compared with ECG of 07-NOV-2021 12:58, No significant change was found Referred By: Gurdeep Trevino Electronically Signed By:DIPESH FLORES MD
--- NOTE | 2022-03-16 17:39 | ED.GENADULT ---
HPI - General Adult General Chief complaint: Weakness Stated complaint: Flu like symptoms Time Seen by Provider: 03/16/22 17:36 Source: patient Limitations: no limitations History of Present Illness HPI narrative: This is a 71-year-old male with history of prostate cancer, bladder cancer with Mets to bone, who complains of weakness, chest pain, shortness of breath, cough which all began today. The patient denies any headache. He denies any rhinorrhea or sore throat. Has had a dry cough. He felt weak especially when he tried to get up and walk and says his had a prevent him from falling. His appetite has been decreased. He denies any vomiting or diarrhea. Does have some mild upper abdominal pain. He denies any swelling to his extremities. He has had COVID vaccinations and booster Related Data Home Medications Medication Instructions Recorded Confirmed atorvastatin 40 mg tablet 1 tab PO BEDTIME 07/19/20 07/10/21 aspirin 81 mg tablet,delayed 81 mg PO DAILY 12/07/20 07/10/21 release cholecalciferol (vitamin D3) 50 1 cap PO DAILY 12/07/20 07/10/21 mcg (2,000 unit) capsule riboflavin (vitamin B2) 100 mg 200 mg PO QAM 01/05/21 07/10/21 tablet magnesium 200 mg tablet 400 mg PO BID 05/14/21 07/10/21 tamsulosin 0.4 mg capsule 1 cap PO BID 07/10/21 07/10/21 propranolol 80 mg capsule,24 80 mg PO DAILY 08/11/21 hr,extended release levetiracetam 250 mg tablet 250 mg PO Q12H 12/23/21 Previous Rx's Medication Instructions Recorded propranolol 60 mg capsule,24 60 mg PO DAILY #30 cap 07/11/21 hr,extended release topiramate 25 mg tablet 25 mg PO BEDTIME #30 tab 07/13/21 metoclopramide HCl 10 mg tablet 10 mg PO Q6H PRN #14 tab 10/10/21 (Reglan) topiramate 50 mg tablet 50 mg PO BEDTIME #30 tab 10/10/21 levetiracetam 500 mg tablet 500 mg PO BID #60 tab 11/05/21 (Keppra) ocvrswyuvh-abmiurwathmtc-iixikdat 1 cap PO TID PRN #7 cap 11/07/21 50 mg-300 mg-40 mg capsule (Fioricet) topiramate 25 mg tablet 25 mg PO BID #60 tab 11/07/21 prednisone 2.5 mg tablet 2.5 mg PO BID 30 Days #60 tab 12/23/21 abiraterone 250 mg tablet 1,000 mg PO DAILY 30 Days #120 tab 12/30/21 dexamethasone 6 mg tablet 6 mg PO DAILY 3 Days #3 tab 01/03/22 lidocaine 4 % topical patch 1 patch TOPICAL DAILY PRN #10 ea 01/21/22 (Aspercreme (lidocaine)) tramadol 50 mg tablet 50 mg PO Q6H PRN #20 tab 01/21/22 Allergies Allergy/AdvReac Type Severity Reaction Status Date / Time oxycodone [Percocet] AdvReac Intermediate face got Verified 12/23/21 08:26 really red Review of Systems Review of Systems: Yes all other systems are reviewed and are negative Constitutional: Constitutional: Reports as per HPI, Denies fever(s) and Reports weakness Eyes: Eyes: Reports as per HPI and Reports no additional eye complaints ENT: Reports system reviewed and no additional complaints, except as documented, Reports as per HPI, Denies nasal congestion, Denies nasal discharge and Denies sore throat Cardiovascular: Cardiovascular: Reports as per HPI, Denies chest pain and Reports dyspnea Respiratory: Respiratory: Reports as per HPI, Reports cough and Reports dyspnea Gastrointestinal: Gastrointestinal: Reports as per HPI, Denies abdominal pain, Denies diarrhea, Reports nausea and Denies vomiting Genitourinary: Genitourinary: Reports as per HPI, Denies hematuria, Denies dysuria and Denies urinary frequency Musculoskeletal: Musculoskeletal: Reports no additional musculoskeletal complaints and Denies numbness Integumentary/Breasts: Skin/Breast: Reports as per HPI and Denies rash Neurologic: Reports as per HPI, Denies focal weakness, Denies numbness and Reports weakness Psychiatric: Psychiatric: Reports no additional psychiatric complaints and Reports as per HPI Endocrine: Endocrine: Reports no additional endocrine complaints and Reports as per HPI Hematologic/Lymphatic: Hematologic/Lymphatic: Reports no additional hematologic/lymphatic complaints, Reports as per HPI and Reports other (No peripheral edema) [facility] Past Medical History Medical History Bladder cancer Bladder tumor Bone cancer Cerebral microvascular disease Elevated cholesterol Hematuria HTN (hypertension) Prostate CA Tremor Surgical History H/O prostate biopsy History of cystoscopy Social History Social History Household Members: Spouse Housing: House Are you a primary assistant child care teacher to a significant other at home: No Do you presently have visiting nurse or other home services: Yes Alcohol intake: never Patient Tobacco Use Status: Never used Tobacco Second Hand Smoke Exposure: No Advance Directives: Yes Advance Directives Information Provided: No Advance Directives on File: No service: No Current occupational status: retired Physical Exam ED Vital Signs: Vital Signs - 24 hr 03/16/22 17:49 03/16/22 19:46 03/16/22 20:45 Temperature 97.6 F 98.2 F Pulse Rate 62 61 57 Respiratory Rate 18 16 16 Blood Pressure 131/76 124/74 119/67 Pulse Oximetry 100 100 100 BMI result Body Mass Index 29.8 Const Other: Patient somewhat pale-appearing, no distress General: no acute distress Orientation/consciousness: patient oriented x3 HENMT Head: Yes normal to inspection General nose exam: Normal external nose present Mouth: moist mucous membranes Throat: Yes posterior oropharynx normal, Yes tonsils normal and Yes uvula midline Eyes Eyelids: Yes eyelids normal Conjunctivae: conjunctivae normal Pupils: Equal, round and reactive pupils present Neck Neck: Yes supple Resp Effort & Inspection: normal respiratory effort Auscultation: clear to auscultation bilaterally Cardio Rate: regular rate Rhythm: regular rhythm Heart sounds: S1 normal heart sound present, S2 normal heart sound present, no gallops, no murmurs and no rubs GI Inspection: No distended Palpation (GI): Soft to palpation and Tenderness to palpation present (GI) (Mild epigastric) Auscultation: normal bowel sounds Skin General skin exam: other (Warm and dry) Neuro General: patient oriented x3 and CN's II-XI intact bilaterally Cranial nerves: Yes Equal, round and reactive pupils present Extrem General: Yes no pedal edema Psych Affect: normal affect Attitude: cooperative Medical Decision Making MDM Narrative Medical decision making narrative: Patient with multiple complaints, seemed concerned about having an acute illness that began today. Workup including CBC, chemistry, chest x-ray, EKG, urine, COVID, influenza, all negative. Patient felt better after IV hydration, and is safe for outpatient follow-up Lab Data Lab results reviewed: Yes I reviewed the patient's lab results. Result diagrams: 03/16/22 19:09 03/16/22 19:09 Labs: Lab Results 03/16/22 03/16/22 03/16/22 Range/Units 19:09 19:09 19:09 WBC 7.9 (4.8-10.8) X10*3/uL RBC 4.21 L (4.60-5.80) X10*6/uL Hgb 13.6 L (14.0-18.0) g/dl Hct 41.3 L (42.0-52.0) % MCV 98.1 H (80.0-98.0) fL MCH 32.3 (27.0-33.0) pg MCHC 32.9 (31.0-36.0) g/dl RDW 14.3 (11.0-16.0) % Plt Count 221 (160-400) X10*3/uL MPV 10.4 (9.4-12.4) fL Immature Gran % (Auto) 0.4 (0.0-0.4) % Neut % (Auto) 57.5 (45-73) % Lymph % (Auto) 33.5 (20-40) % [place] % (Auto) 7.6 (2-11) % Eos % (Auto) 0.6 (0-4) % Baso % (Auto) 0.4 (0-2) % Lymph # (Auto) 2.6 (1.2-4.9) X10*3/uL [place] # (Auto) 0.6 (0.1-1.2) X10*3/uL Eos # (Auto) 0.1 (0.0-0.4) X10*3/uL Baso # (Auto) 0.0 (0.0-0.2) X10*3/uL Abs Immat Gran (auto) 0.03 (0.00-0.03) X10*3/uL Absolute Neuts (auto) 4.5 (2.0-8.3) x10*3/uL Absolute Nucleated RBC 0.000 (0.0-0.012) X10*3/uL Nucleated RBC % (auto) 0.0 (0.0-0.2) /100WBC Sodium 140 (135-145) mmol/L Potassium 4.6 (3.3-5.1) mmol/L Chloride 108 (96-108) mmol/L Carbon Dioxide 25 (22-29) mmol/L Anion Gap 12 (12-20) BUN 33 H (9-16) mg/dL Creatinine 1.37 (0.5-1.4) mg/dL Estim Creat Clear Calc 62.2 Estimated GFR 52 Random Glucose 107 (60-115) mg/dL Calcium 9.3 (8.4-10.2) mg/dL Total Bilirubin 1.5 H (0.0-1.0) mg/dL AST 42 H D (5-37) U/L ALT 79 H (0-40) U/L Alkaline Phosphatase 113 (39-117) U/L Troponin I High Sens 4.8 (<3.5-35.0) ng/L Total Protein 6.8 (6.5-8.0) g/dL Albumin 3.6 (3.5-5.0) g/dL Urine Color Urine Appearance Urine pH (5.0-8.0) Ur Specific [place] (1.005-1.025) Urine Protein (NEG-TRACE) MG/DL Urine Glucose (UA) (NEG) MG/DL Urine Ketones (NEG) MG/DL Urine Blood (NEG) Urine Nitrite (NEG) Ur Leukocyte Esterase (NEG) COVID-19 (GENEVA) (Negative) COVID-19 Clin Com Influenza Type A (JORDAN) (Negative) Influenza Type B (JORDAN) (Negative) Influenza A & B Note 03/16/22 03/16/22 03/16/22 Range/Units 19:09 19:09 19:16 WBC (4.8-10.8) X10*3/uL RBC (4.60-5.80) X10*6/uL Hgb (14.0-18.0) g/dl Hct (42.0-52.0) % MCV (80.0-98.0) fL MCH (27.0-33.0) pg MCHC (31.0-36.0) g/dl RDW (11.0-16.0) % Plt Count (160-400) X10*3/uL MPV (9.4-12.4) fL Immature Gran % (Auto) (0.0-0.4) % Neut % (Auto) (45-73) % Lymph % (Auto) (20-40) % [place] % (Auto) (2-11) % Eos % (Auto) (0-4) % Baso % (Auto) (0-2) % Lymph # (Auto) (1.2-4.9) X10*3/uL [place] # (Auto) (0.1-1.2) X10*3/uL Eos # (Auto) (0.0-0.4) X10*3/uL Baso # (Auto) (0.0-0.2) X10*3/uL Abs Immat Gran (auto) (0.00-0.03) X10*3/uL Absolute Neuts (auto) (2.0-8.3) x10*3/uL Absolute Nucleated RBC (0.0-0.012) X10*3/uL Nucleated RBC % (auto) (0.0-0.2) /100WBC Sodium (135-145) mmol/L Potassium (3.3-5.1) mmol/L Chloride (96-108) mmol/L Carbon Dioxide (22-29) mmol/L Anion Gap (12-20) BUN (9-16) mg/dL Creatinine (0.5-1.4) mg/dL Estim Creat Clear Calc Estimated GFR Random Glucose (60-115) mg/dL Calcium (8.4-10.2) mg/dL Total Bilirubin (0.0-1.0) mg/dL AST (5-37) U/L ALT (0-40) U/L Alkaline Phosphatase (39-117) U/L Troponin I High Sens (<3.5-35.0) ng/L Total Protein (6.5-8.0) g/dL Albumin (3.5-5.0) g/dL Urine Color YELLOW Urine Appearance CLEAR Urine pH 6.0 (5.0-8.0) Ur Specific [place] 1.010 (1.005-1.025) Urine Protein NEG (NEG-TRACE) MG/DL Urine Glucose (UA) NEG (NEG) MG/DL Urine Ketones NEG (NEG) MG/DL Urine Blood NEG (NEG) Urine Nitrite NEG (NEG) Ur Leukocyte Esterase NEG (NEG) COVID-19 (GENEVA) Negative (Negative) COVID-19 Clin Com See Note Influenza Type A (JORDAN) Negative (Negative) Influenza Type B (JORDAN) Negative (Negative) Influenza A & B Note See Note Imaging Data Chest x-ray: Radiologist's impression: No acute pathology ECG Data Attestation: I personally reviewed and interpreted this ECG as follows: Prior ECG tracings: not available for review Interpretation: Sinus rhythm with a rate of 57. Left axis deviation. Baseline artifact. No ST elevation or depression. Discharge Plan Discharge Clinical Impression: Acute viral syndrome Patient Disposition: Home, Self-Care Instructions: Viral Syndrome (ED) Additional Instructions: Drink plenty of fluids. Continue current medications. Return for any new or worsened symptoms Prescriptions: No Action abiraterone 250 mg tablet 1,000 mg PO DAILY 30 Days Qty: 120 5RF Rx Instructions: must be taken on empty stomach, at least 1 hr before or 2 hrs after a meal/food cholecalciferol (vitamin D3) 50 mcg (2,000 unit) capsule 1 cap PO DAILY 0RF aspirin 81 mg Tablet,Delayed Release (Dr/Ec) 81 mg PO DAILY 0RF magnesium 200 mg Tablet 400 mg PO BID 0RF atorvastatin 40 mg tablet 1 tab PO BEDTIME 0RF tamsulosin 0.4 mg capsule 1 cap PO BID 0RF propranolol 60 mg capsule,extended release 24 hr 60 mg PO DAILY Qty: 30 0RF topiramate 25 mg Tablet 25 mg PO BEDTIME Qty: 30 0RF topiramate 25 mg tablet 25 mg PO BID Qty: 60 0RF jmykzzqhfk-gxtfrcupoejni-vldy [Fioricet] 50-300-40 mg capsule 1 cap PO TID PRN (Reason: pain) Qty: 7 0RF Rx Instructions: with no more than 2 days per week dexamethasone 6 mg tablet 6 mg PO DAILY 3 Days Qty: 3 0RF lidocaine [Aspercreme (lidocaine HCl)] 4 % adhesive patch,medicated 1 patch topical DAILY PRN (Reason: pain) Qty: 10 0RF tramadol 50 mg tablet 50 mg PO Q6H PRN (Reason: pain) Qty: 20 0RF topiramate 50 mg tablet 50 mg PO BEDTIME Qty: 30 0RF metoclopramide HCl [Reglan] 10 mg tablet 10 mg PO Q6H PRN (Reason: headaches,nausea, vomiting) Qty: 14 0RF levetiracetam [Keppra] 500 mg tablet 500 mg PO BID Qty: 60 0RF propranolol 80 mg capsule,extended release 24 hr 80 mg PO DAILY 0RF riboflavin (vitamin B2) 100 mg tablet 200 mg PO QAM 0RF levetiracetam 250 mg tablet 250 mg PO Q12H 0RF prednisone 2.5 mg tablet 2.5 mg PO BID 30 Days Qty: 60 5RF Interventions: ED Discharge Assessment Last Done: 03/16/22 21:10 Discharge Date/Time: 03/16/22 21:20
[2022-03-16 17:49] VITALS: BP 131/76; PULSE 62; RESP 18; TEMP 36.4; O2SAT 100
[2022-03-16] MEDS: 0.9 % Sodium Chloride 1,000 ML 999 ML IV (19:26)
[2022-03-16 19:30] LABS: MANUAL DIFF FLAG NO
[2022-03-16 19:32] LABS: Basophils Percent Auto 0.4 % (0-2); Eosinophils Absolute Auto 0.1 X10*3/uL (0.0-0.4); Eosinophils Percent Auto 0.6 % (0-4); Hematocrit 41.3 % (42.0-52.0); Hemoglobin 13.6 g/dl (14.0-18.0); Imm Gran Abs Auto 0.03 X10*3/uL (0.00-0.03); Imm Gran Pct Auto 0.4 % (0.0-0.4); Lymphocytes Absolute Auto 2.6 X10*3/uL (1.2-4.9); Lymphocytes Percent Auto 33.5 % (20-40); Mean Corpuscular HGB Conc 32.9 g/dl (31.0-36.0); Mean Corpuscular Hemoglobin 32.3 pg (27.0-33.0); Mean Corpuscular Volume 98.1 fL (80.0-98.0); Mean Platelet Volume 10.4 fL (9.4-12.4); Monocytes Absolute Auto 0.6 X10*3/uL (0.1-1.2); Monocytes Percent Auto 7.6 % (2-11); Neutrophils Absolute Auto 4.5 x10*3/uL (2.0-8.3); Neutrophils Percent Auto 57.5 % (45-73); Platelet Count 221 X10*3/uL (160-400); Red Blood Count 4.21 X10*6/uL (4.60-5.80); Red Cell Distribution Width 14.3 % (11.0-16.0); White Blood Count 7.9 X10*3/uL (4.8-10.8)
[2022-03-16 19:32] LABS: Appearance Urine CLEAR; Color Urine YELLOW; Glucose Urine UA NEG (NEG); Leukocyte Esterase Urine NEG (NEG); Nitrite Urine NEG (NEG); Urine Blood NEG (NEG); Urine Ketones NEG (NEG); Urine Protein NEG (NEG-TRACE)
[2022-03-16 19:46] VITALS: BP 124/74; PULSE 61; RESP 16; TEMP 36.8; O2SAT 100
[2022-03-16 19:47] LABS: Alanine Aminotransferase 79 U/L (0-40); Albumin Level 3.6 g/dL (3.5-5.0); Alkaline Phosphatase 113 U/L (39-117); Anion Gap 12 (12-20); Aspartate Amino Transferase 42 U/L (5-37); Bilirubin Total 1.5 mg/dL (0.0-1.0); Blood Urea Nitrogen 33 mg/dL (9-16); Calcium 9.3 mg/dL (8.4-10.2); Carbon Dioxide 25 mmol/L (22-29); Chloride 108 mmol/L (96-108); Creatinine Clr Calc Pharmacy 62.2; Estimated Glomerular Filt Rate 52; Glucose Random 107 mg/dL (60-115); Potassium 4.6 mmol/L (3.3-5.1); Sodium 140 mmol/L (135-145); Total Protein 6.8 g/dL (6.5-8.0)
--- NOTE | 2022-03-16 19:48 | PC.NURSE ---
PATIENT WAS CHANGE INTO HOSPITAL ATTIRE BY THIS PCT .
[2022-03-16 19:53] LABS: Troponin-I High Sensitivity 4.8 ng/L (<3.5-35.0)
[2022-03-16 20:03] LABS: COVID-19 Test Negative (Negative); IDNOW Serial# 16C4AD1C; Influenza A Negative (Negative); Influenza B2 Negative (Negative)
[2022-03-16 20:45] VITALS: BP 119/67; PULSE 57; RESP 16; O2SAT 100
== END 2022-03-16 21:20 | disposition home or self-care (01) ==
PROVIDERS: Emergency Provider Emergency Medicine; PCP Family Medicine
DX: B34.9 Viral infection, unspecified (principal); I10 Essential (primary) hypertension; C67.9 Malignant neoplasm of bladder, unspecified; C79.51 Secondary malignant neoplasm of bone; Z85.46 Personal history of malignant neoplasm of prostate; Z20.822 Contact with and (suspected) exposure to COVID-19
CPT/HCPCS: 71046; 80053; 81003; 84484; 85025; 87502; 87635; 93005; 96360; 99283; 99284

== ENCOUNTER 2022-03-25 08:52 | Outpatient (REF) | payer OTHER, SELFPAY ==
[2022-03-25 10:43] LABS: Prostate Specific Antigen 0.33 ng/mL (<0.05-4.0)
[2022-03-31 15:33] LABS: Testosterone, Total <1 ng/dL (250-1100)
== END 2022-03-25 08:53 | disposition home or self-care (01) ==
LOC: HO.LAB 08:52
PROVIDERS: PCP Family Medicine; Visit Provider Urology
DX: C61 Malignant neoplasm of prostate (principal); C79.51 Secondary malignant neoplasm of bone
CPT/HCPCS: 36415; 84153; 84403

== ENCOUNTER 2022-03-28 10:02 | Outpatient (REF) | payer OTHER, SELFPAY ==
[2022-03-28 16:57] LABS: Urine Cytology See Pathology rpt
== END 2022-03-28 10:03 | disposition home or self-care (01) ==
LOC: HO.LAB 10:02
PROVIDERS: Visit Provider Urology
DX: C67.1 Malignant neoplasm of dome of bladder (principal); C61 Malignant neoplasm of prostate; C79.51 Secondary malignant neoplasm of bone; M85.80 Other specified disorders of bone density and structure, unspecified site; I10 Essential (primary) hypertension; E78.00 Pure hypercholesterolemia, unspecified
CPT/HCPCS: 52000; 88112; 96402; 99212; J9217

== ENCOUNTER 2022-04-27 16:13 | Emergency (ER) | payer OTHER, SELFPAY ==
--- NOTE | ~2022-04-27 | CT_ITS ---
EXAMINATION: NONCONTRAST HEAD CT NONCONTRAST CERVICAL SPINE CT INDICATION INFORMATION: Trauma COMPARISON: Head CT 01/03/2022, CT cervical spine 08/29/2021 TECHNIQUE: Separate noncontrast CT examinations of the head and cervical spine were performed. Coronal and sagittal images were created for each examination at the technologist workstation. This CT examination was performed using dose optimization techniques as appropriate, variously including the following: *Automated exposure control *Adjustment of mA and/or kV according to patient size (this includes techniques or standardized protocols for targeted exams where dose is matched to indication/reason for exam; i.e. extremities or head) *Use of iterative reconstruction technique DLP: 1299 mGy-cm FINDINGS: HEAD: No intra or extra-axial fluid collection, hemorrhage, or mass. No ventriculomegaly. No midline shift or herniation. Basal cisterns are patent. Cade-white matter differentiation is maintained. No territorial encephalomalacia. Proportional prominence of the ventricles and sulcal spaces is consistent with mild volume loss. No appreciable change in confluent supratentorial white matter hypoattenuation bilaterally. No calvarial fracture or soft tissue abnormality. The mastoid air cells and visualized portions of the paranasal sinuses are well aerated. CERVICAL SPINE: Alignment: Minimal retrolisthesis at C3-C4 and C5-C6, unchanged. Vertebra: No acute fracture. No prevertebral soft tissue swelling. Degenerative disc disease: Moderate disc degenerative change at C3-C4 with disc height loss, endplate sclerosis, and endplate osteophytes. Milder disc degenerative changes at C4-C5, C5-C6, C6-C7, unchanged. Other findings: No cervical lymphadenopathy. Visualized major salivary glands and thyroid gland are unremarkable. Visualized lung apices are clear. CT/CT cervical spine wo con IMPRESSION: 1. No intracranial hemorrhage or calvarial fracture. 2. No traumatic subluxation or acute cervical spine fracture.
[2022-04-27 16:26] VITALS: BP 122/61; BP 125/58; PULSE 72; PULSE 94; RESP 18; TEMP 36.6; O2SAT 94; O2SAT 96; BMI 33.4
[2022-04-27 16:34] LABS: Glucose, Whole Blood 105 mg/dL (60-115)
--- NOTE | 2022-04-27 16:35 | ECG_ITS ---
Test Reason : SEIZURE Blood Pressure : / mmHG Vent. Rate : 062 BPM Atrial Rate : 062 BPM P-R Int : 148 ms QRS Dur : 110 ms QT Int : 458 ms P-R-T Axes : 019 -64 014 degrees QTc Int : 464 ms Normal sinus rhythm Left anterior fascicular block Abnormal ECG When compared with ECG of 16-MAR-2022 19:16, No significant change was found Referred By: Kanu Lan Electronically Signed By:DIPESH FLORES MD
--- NOTE | 2022-04-27 16:46 | ED.SEIZURE ---
HPI - Seizure General Chief Complaint: Seizure Stated Complaint: seizure at home- w/ hx. +head strike. -thinner, Time Seen by Provider: 04/27/22 16:31 Source: family and EMS Mode of arrival: EMS History of Present Illness HPI Narrative: this is 71 years old male with history of complex partial seizure brought in by ambulance with a possible seizure. The patient was stoma was sent him a in the shower after the shower start the patient down and family witnessed seizure. He was brought here awake and alert the head be confused MD complaint: seizure and possible seizure Onset (ago): hour(s) (1) Description of Episode: post-event confusion Witnessed: Yes - by Other (family) Trauma: No Seizure History: Yes Place: Home Possible Precipitating Event: none Associated symptoms: denies other symptoms Related Data Home Medications Medication Instructions Recorded Confirmed atorvastatin 40 mg tablet 1 tab PO BEDTIME 07/19/20 07/10/21 aspirin 81 mg tablet,delayed 81 mg PO DAILY 12/07/20 07/10/21 release cholecalciferol (vitamin D3) 50 1 cap PO DAILY 12/07/20 07/10/21 mcg (2,000 unit) capsule riboflavin (vitamin B2) 100 mg 200 mg PO QAM 01/05/21 07/10/21 tablet magnesium 200 mg tablet 400 mg PO BID 05/14/21 07/10/21 tamsulosin 0.4 mg capsule 1 cap PO BID 07/10/21 07/10/21 propranolol 80 mg capsule,24 80 mg PO DAILY 08/11/21 hr,extended release levetiracetam 250 mg tablet 250 mg PO Q12H 12/23/21 Previous Rx's Medication Instructions Recorded propranolol 60 mg capsule,24 60 mg PO DAILY #30 caps 07/11/21 hr,extended release topiramate 25 mg tablet 25 mg PO BEDTIME #30 tabs 07/13/21 metoclopramide HCl 10 mg tablet 10 mg PO Q6H PRN headaches,nausea, 10/10/21 (Reglan) vomiting #14 tabs topiramate 50 mg tablet 50 mg PO BEDTIME #30 tabs 10/10/21 levetiracetam 500 mg tablet 500 mg PO BID #60 tabs 11/05/21 (Keppra) [id number]-eeoqaawjvosiq-hsegomzn 1 cap PO TID PRN pain #7 caps 11/07/21 50 mg-300 mg-40 mg capsule (Fioricet) topiramate 25 mg tablet 25 mg PO BID #60 tabs 11/07/21 prednisone 2.5 mg tablet 2.5 mg PO BID 30 days #60 tabs 12/23/21 dexamethasone 6 mg tablet 6 mg PO DAILY 3 days #3 tabs 01/03/22 lidocaine 4 % topical patch 1 patch topical DAILY PRN pain #10 01/21/22 (Aspercreme (lidocaine)) ea tramadol 50 mg tablet 50 mg PO Q6H PRN pain #20 tabs 01/21/22 abiraterone 250 mg tablet 750 mg PO DAILY 30 days #90 tabs 04/18/22 Allergies Allergy/AdvReac Type Severity Reaction Status Date / Time oxycodone [Percocet] AdvReac Intermediate face got Verified 03/28/22 10:03 really red Review of Systems Review of Systems: Yes Other ( unable to do review of system because post-ictal) [facility] Past Medical History [facility] Narrative: patient has history of partial complex seizure is followed by a neurologist Medical History Bladder cancer Bladder tumor Bone cancer Cerebral microvascular disease Elevated cholesterol Hematuria HTN (hypertension) Prostate CA Tremor Surgical History H/O prostate biopsy History of cystoscopy Social History Social History Household Members: Spouse Housing: House Are you a primary career development engineer to a significant other at home: No Do you presently have visiting nurse or other home services: Yes Alcohol intake: never Patient Tobacco Use Status: Never used Tobacco Second Hand Smoke Exposure: No Advance Directives: Yes Advance Directives Information Provided: No Advance Directives on File: No service: No Current occupational status: retired Physical Exam Vital Signs: Vital Signs: Last Vital Signs Temp 97.8 F 04/27/22 16:26 Pulse 94 04/27/22 16:26 Resp 18 04/27/22 16:26 BP 122/61 04/27/22 16:26 Pulse Ox 94 04/27/22 16:26 O2 Del Method 04/27/22 16:26 BMI result Body Mass Index 33.4 Const: General: cooperative, comfortable and no acute distress Nutritional Appearance: average body habitus and well nourished HEENT: Head: Yes normal to inspection General nose exam: Normal external nose present Face and sinus: Yes normal facial exam Mouth: Normal oral and palatal mucosa present Teeth and gingiva: dentition normal Throat: Yes posterior oropharynx normal Neck: Neck: Yes full ROM and Yes no lymphadenopathy Chest: Chest palpation & inspection: normal inspection of the chest Resp: Effort & Inspection: normal respiratory effort and able to speak in complete sentences Auscultation: clear to auscultation bilaterally Cardio: Jugular venous distension: no JVD Rate: regular rate Rhythm: regular rhythm GI: Inspection: Yes normal to inspection Palpation (GI): Soft to palpation, not firm, nontender and no guarding : General: Yes no CVA tenderness Back/Spine/Pelvis: Back: no CVA tenderness Neuro: Other: he is awake and alert ,no motor deficit at this time is disoriented to time and place Course Reevaluation(s) Reevaluation #1: he is awake alert oriented x3 now head CT is negative labs are within normal limit I spoke with his I am planning to observe him a little longer in the monitor Time: 18:08 Reevaluation #2: I spoke with Dr sawyer he reccomend to double the keppra to 500 BID Reevaluation #3: patient is doing much better is awake alert oriented x3 wants to go home, at this point will discharge the patient home Time: 19:11 MDM - Seizure Lab Data Result diagrams: 04/27/22 17:08 04/27/22 17:08 Labs: Lab Results 04/27/22 04/27/22 04/27/22 Range/Units 16:27 17:08 17:08 WBC 7.0 (4.8-10.8) X10*3/uL RBC 4.09 L (4.60-5.80) X10*6/uL Hgb 13.6 L (14.0-18.0) g/dl Hct 40.6 L (42.0-52.0) % MCV 99.3 H (80.0-98.0) fL MCH 33.3 H (27.0-33.0) pg MCHC 33.5 (31.0-36.0) g/dl RDW 14.6 (11.0-16.0) % Plt Count 232 (160-400) X10*3/uL MPV 10.3 (9.4-12.4) fL Immature Gran % (Auto) 0.6 H (0.0-0.4) % Neut % (Auto) 59.0 (45-73) % Lymph % (Auto) 29.8 (20-40) % Letcher % (Auto) 8.9 (2-11) % Eos % (Auto) 1.0 (0-4) % Baso % (Auto) 0.7 (0-2) % Lymph # (Auto) 2.1 (1.2-4.9) X10*3/uL Letcher # (Auto) 0.6 (0.1-1.2) X10*3/uL Eos # (Auto) 0.1 (0.0-0.4) X10*3/uL Baso # (Auto) 0.1 (0.0-0.2) X10*3/uL Abs Immat Gran (auto) 0.04 H (0.00-0.03) X10*3/uL Absolute Neuts (auto) 4.1 (2.0-8.3) x10*3/uL Absolute Nucleated RBC 0.000 (0.0-0.012) X10*3/uL Nucleated RBC % (auto) 0.0 (0.0-0.2) /100WBC Sodium 139 (135-145) mmol/L Potassium 4.4 (3.3-5.1) mmol/L Chloride 107 (96-108) mmol/L Carbon Dioxide 24 (22-29) mmol/L Anion Gap 12 (12-20) BUN 31 H (9-16) mg/dL Creatinine 1.51 H (0.5-1.4) mg/dL Estim Creat Clear Calc 52.8 Estimated GFR 46 POC Glucose 105 (60-115) mg/dL Random Glucose 106 (60-115) mg/dL Calcium 9.0 (8.4-10.2) mg/dL Total Bilirubin 1.6 H (0.0-1.0) mg/dL AST 30 (5-37) U/L ALT 47 H (0-40) U/L Alkaline Phosphatase 134 H (39-117) U/L Troponin I High Sens (<3.5-35.0) ng/L Total Protein 7.0 (6.5-8.0) g/dL Albumin 3.8 (3.5-5.0) g/dL // Range/Units 17:08 WBC (4.8-10.8) X10*3/uL RBC (4.60-5.80) X10*6/uL Hgb (14.0-18.0) g/dl Hct (42.0-52.0) % MCV (80.0-98.0) fL MCH (27.0-33.0) pg MCHC (31.0-36.0) g/dl RDW (11.0-16.0) % Plt Count (160-400) X10*3/uL MPV (9.4-12.4) fL Immature Gran % (Auto) (0.0-0.4) % Neut % (Auto) (45-73) % Lymph % (Auto) (20-40) % Letcher % (Auto) (2-11) % Eos % (Auto) (0-4) % Baso % (Auto) (0-2) % Lymph # (Auto) (1.2-4.9) X10*3/uL Letcher # (Auto) (0.1-1.2) X10*3/uL Eos # (Auto) (0.0-0.4) X10*3/uL Baso # (Auto) (0.0-0.2) X10*3/uL Abs Immat Gran (auto) (0.00-0.03) X10*3/uL Absolute Neuts (auto) (2.0-8.3) x10*3/uL Absolute Nucleated RBC (0.0-0.012) X10*3/uL Nucleated RBC % (auto) (0.0-0.2) /100WBC Sodium (135-145) mmol/L Potassium (3.3-5.1) mmol/L Chloride (96-108) mmol/L Carbon Dioxide (22-29) mmol/L Anion Gap (12-20) BUN (9-16) mg/dL Creatinine (0.5-1.4) mg/dL Estim Creat Clear Calc Estimated GFR POC Glucose (60-115) mg/dL Random Glucose (60-115) mg/dL Calcium (8.4-10.2) mg/dL Total Bilirubin (0.0-1.0) mg/dL AST (5-37) U/L ALT (0-40) U/L Alkaline Phosphatase (39-117) U/L Troponin I High Sens < 3.5 (<3.5-35.0) ng/L Total Protein (6.5-8.0) g/dL Albumin (3.5-5.0) g/dL Imaging Data CT scan - head: Radiologist's impression: [address] [address] [address] Scan Report Signed Patient: Kody Tinajero MR#: [id number] : 1950 Acct:[id number] Age/Sex: 71 / M ADM Date: 04/27/22 Loc: HO.ED Attending Dr: Ordering Physician: Kanu Lan MD Date of Service: 04/27/22 Procedure(s): CT head/brain wo con Accession Number(s): [id number] cc: Kanu Lan MD~ EXAMINATION: NONCONTRAST HEAD CT NONCONTRAST CERVICAL SPINE CT INDICATION INFORMATION: Trauma COMPARISON: Head CT 01/03/2022, CT cervical spine 08/29/2021 TECHNIQUE: Separate noncontrast CT examinations of the head and cervical spine were performed. Coronal and sagittal images were created for each examination at the technologist workstation. This CT examination was performed using dose optimization techniques as appropriate, variously including the following: *Automated exposure control *Adjustment of mA and/or kV according to patient size (this includes techniques or standardized protocols for targeted exams where dose is matched to indication/reason for exam; i.e. extremities or head) *Use of iterative reconstruction technique DLP: 1299 mGy-cm FINDINGS: HEAD: No intra or extra-axial fluid collection, hemorrhage, or mass. No ventriculomegaly. No midline shift or herniation. Basal cisterns are patent. Cade-white matter differentiation is maintained. No territorial encephalomalacia. ?Proportional prominence of the ventricles and sulcal spaces is consistent with mild volume loss. No appreciable change in confluent supratentorial white matter hypoattenuation bilaterally. No calvarial fracture or soft tissue abnormality.? The mastoid air cells and visualized portions of the paranasal sinuses are well aerated. CERVICAL SPINE: Alignment: Minimal retrolisthesis at C3-C4 and C5-C6, unchanged. Vertebra: No acute fracture. No prevertebral soft tissue swelling. Degenerative disc disease: Moderate disc degenerative change at C3-C4 with disc height loss, endplate sclerosis, and endplate osteophytes. Milder disc degenerative changes at C4-C5, C5-C6, C6-C7, unchanged. Other findings: No cervical lymphadenopathy. Visualized major salivary glands and thyroid gland are unremarkable. Visualized lung apices are clear. CT/CT head/brain wo con IMPRESSION: ? 1. No intracranial hemorrhage or calvarial fracture. 2. No traumatic subluxation or acute cervical spine fracture. Dictated By: Ford Cronin Signed By: <Electronically signed by Ford? Mehrdad in OV> 04/27/22 3735 Discharge Plan Discharge Clinical Impression: Seizure disorder Patient Disposition: Home, Self-Care Instructions: Recurrent Seizures in Adults (ED) Additional Instructions: follow-up with your neurologist Dr. Roth, increase the Keppra (Levetiracetam ) 500 mg twice a day from a 250 twice a day that you were taking before, return to emergency room if you worse any concern Prescriptions: No Action abiraterone 250 mg tablet 750 mg PO DAILY 30 Days Qty: 90 5RF Rx Instructions: must be taken on empty stomach, at least 1 hr before or 2 hrs after a meal/food cholecalciferol (vitamin D3) 50 mcg (2,000 unit) capsule 1 cap PO DAILY aspirin 81 mg Tablet,Delayed Release (Dr/Ec) 81 mg PO DAILY magnesium 200 mg Tablet 400 mg PO BID atorvastatin 40 mg tablet 1 tab PO BEDTIME tamsulosin 0.4 mg capsule 1 cap PO BID propranolol 60 mg capsule,extended release 24 hr 60 mg PO DAILY Qty: 30 0RF topiramate 25 mg Tablet 25 mg PO BEDTIME Qty: 30 0RF topiramate 25 mg tablet 25 mg PO BID Qty: 60 0RF [id number]-qoxo [Fioricet] 50-300-40 mg capsule 1 cap PO TID PRN (Reason: pain) Qty: 7 0RF Rx Instructions: with no more than 2 days per week dexamethasone 6 mg tablet 6 mg PO DAILY 3 Days Qty: 3 0RF lidocaine [Aspercreme (lidocaine HCl)] 4 % adhesive patch,medicated 1 patch topical DAILY PRN (Reason: pain) Qty: 10 0RF tramadol 50 mg tablet 50 mg PO Q6H PRN (Reason: pain) Qty: 20 0RF topiramate 50 mg tablet 50 mg PO BEDTIME Qty: 30 0RF metoclopramide HCl [Reglan] 10 mg tablet 10 mg PO Q6H PRN (Reason: headaches,nausea, vomiting) Qty: 14 0RF levetiracetam [Keppra] 500 mg tablet 500 mg PO BID Qty: 60 0RF propranolol 80 mg capsule,extended release 24 hr 80 mg PO DAILY riboflavin (vitamin B2) 100 mg tablet 200 mg PO QAM levetiracetam 250 mg tablet 250 mg PO Q12H prednisone 2.5 mg tablet 2.5 mg PO BID 30 Days Qty: 60 5RF nitrofurantoin monohyd/m-cryst 100 mg capsule 100 mg PO ONCE Qty: 1 0RF lidocaine HCl 2 % jelly in applicator 10 ml intra-urethral ONCE Qty: 10 0RF Referrals: Gilda Roth MD [Physician] - Interventions: ED Discharge Assessment Last Done: 04/27/22 20:21 Discharge Date/Time: 04/27/22 20:21
[2022-04-27 17:12] LABS: MANUAL DIFF FLAG NO
[2022-04-27 17:30] LABS: Alanine Aminotransferase 47 U/L (0-40); Albumin Level 3.8 g/dL (3.5-5.0); Alkaline Phosphatase 134 U/L (39-117); Anion Gap 12 (12-20); Aspartate Amino Transferase 30 U/L (5-37); Bilirubin Total 1.6 mg/dL (0.0-1.0); Blood Urea Nitrogen 31 mg/dL (9-16); Carbon Dioxide 24 mmol/L (22-29); Chloride 107 mmol/L (96-108); Creatinine Clr Calc Pharmacy 52.8; Estimated Glomerular Filt Rate 46; Glucose Random 106 mg/dL (60-115); Potassium 4.4 mmol/L (3.3-5.1); Sodium 139 mmol/L (135-145)
[2022-04-27 17:32] LABS: Basophils Absolute Auto 0.1 X10*3/uL (0.0-0.2); Basophils Percent Auto 0.7 % (0-2); Eosinophils Absolute Auto 0.1 X10*3/uL (0.0-0.4); Hematocrit 40.6 % (42.0-52.0); Hemoglobin 13.6 g/dl (14.0-18.0); Imm Gran Abs Auto 0.04 X10*3/uL (0.00-0.03); Imm Gran Pct Auto 0.6 % (0.0-0.4); Lymphocytes Absolute Auto 2.1 X10*3/uL (1.2-4.9); Lymphocytes Percent Auto 29.8 % (20-40); Mean Corpuscular HGB Conc 33.5 g/dl (31.0-36.0); Mean Corpuscular Hemoglobin 33.3 pg (27.0-33.0); Mean Corpuscular Volume 99.3 fL (80.0-98.0); Mean Platelet Volume 10.3 fL (9.4-12.4); Monocytes Absolute Auto 0.6 X10*3/uL (0.1-1.2); Monocytes Percent Auto 8.9 % (2-11); Neutrophils Absolute Auto 4.1 x10*3/uL (2.0-8.3); Platelet Count 232 X10*3/uL (160-400); Red Blood Count 4.09 X10*6/uL (4.60-5.80); Red Cell Distribution Width 14.6 % (11.0-16.0)
[2022-04-27 17:33] LABS: Troponin-I High Sensitivity < 3.5 ng/L (<3.5-35.0)
[2022-04-27] MEDS: levETIRAcetam in NaCl (iso-os) 500 MG/100 ML PIGGYBACK 400 MG IV (18:21)
== END 2022-04-27 20:21 | disposition home or self-care (01) ==
PROVIDERS: Emergency Provider Emergency Medicine; PCP Family Medicine
DX: R56.9 Unspecified convulsions (principal); R51.9 Headache, unspecified; M54.2 Cervicalgia; Z79.899 Other long term (current) drug therapy; Z79.82 Long term (current) use of aspirin
CPT/HCPCS: 36415; 70450; 72125; 80053; 80177; 82947; 84484; 85025; 93005; 96374; 99284; 99285; J1953

== ENCOUNTER → 2022-05-12 13:23 | Outpatient (BNVA) | payer OTHER, SELFPAY | PROVIDERS: PCP Family Medicine; Visit Provider Urology | DX: C67.1 Malignant neoplasm of dome of bladder (principal); C61 Malignant neoplasm of prostate; C79.51 Secondary malignant neoplasm of bone; M85.80 Other specified disorders of bone density and structure, unspecified site | CPT/HCPCS: Q3014 ==

== ENCOUNTER 2022-05-17 08:58 | Outpatient (REF) | payer OTHER, SELFPAY ==
--- NOTE | ~2022-05-17 | MM_ITS ---
EXAMINATION: BONE DENSITOMETRY CLINICAL INDICATION: Other specified disorders of bone density and structure. COMPARISON: Baseline BD dated 03/02/2021. TECHNIQUE: Using a [employer] DXA System (software version: 13.1) manufactured by [employer], dual-energy x-ray absorptiometry was performed of the lumbar spine and left hip. The images are of good technical quality. Summary results are attached. FINDINGS: AP SPINE L1-L3 (excluding L4): The data of L1-L4 has been changed to exclude the L4 vertebral body, because degenerative changes at this level may cause overestimation of lumbar spine density. Current: BMD 1.325 g/cm2, Z-score 0.8, T-score 1.0, normal, 5.6% decrease from baseline (<5% change is not significant). Baseline: BMD 1.403 g/cm2. LEFT FEMUR, NECK: Current: BMD 0.769 g/cm2, Z-score -1.5, T-score -2.3, osteopenia. Baseline: BMD 0.810 g/cm2. LEFT FEMUR, TOTAL: Current: BMD 0.839 g/cm2, Z-score -1.5, T-score -1.8, osteopenia, 10.2% decrease from baseline (<5% change is not significant). Baseline: BMD 0.934 g/cm2. IDENTIFIED RISK FACTORS: Recurrent falls. HISTORY OF FRACTURE: None listed. MEDICATIONS: Vitamin D. MM/XR DEXA axial skeleton IMPRESSION: 1. DIAGNOSIS: Osteopenia based on the lowest T-score value of -2.3 in the femoral neck applying World Health Organization criteria. 2. 10-YEAR FRACTURE RISK PREDICTION, FRAX: Major osteoporotic fracture (clinical spine, forearm, hip or shoulder) 8.3%. Hip fracture 2.3%. 3. Treatment Recommendations: NOF guidelines recommend consideration for treatment in postmenopausal women and men age 50 and older presenting with the following: -A hip or vertebral (clinical or morphometric) fracture. -T-score less than or equal to -2.5 at the femoral neck or spine after appropriate evaluation to exclude secondary causes. -Low bone mass at the hip or spine and a 10-year fracture probability by FRAX of greater than or equal to 3% for hip fracture or greater than or equal to 20% for major osteoporotic fracture based on the [place] adapted WHO algorithm. 4. Other Recommendations: All treatment decisions require clinical judgment and consideration of individual patient factors, including patient preferences, comorbidities, previous drug use, risk factors not captured in the FRAX model (e.g. frailty, falls, vitamin D deficiency, increased bone turnover, interval significant decline in bone density) and possible under or overestimation of fracture risk by FRAX. Additional medical evaluation for secondary cause of low bone mineral density may be appropriate. FUTURE SCAN RECOMMENDATION: People with diagnosed cases of osteoporosis or at high risk for fracture should have regular bone mineral density tests. For patients eligible for Medicare, routine testing is allowed once every 2 years. The testing frequency can be increased to one year for patients who have rapidly progressing disease, those who are receiving or discontinuing medical therapy to restore bone mass, or have additional risk factors.
== END 2022-05-17 08:59 | disposition home or self-care (01) ==
LOC: HO.MAMMO 08:58
PROVIDERS: PCP Family Medicine; Visit Provider Urology
DX: Z13.820 Encounter for screening for osteoporosis (principal); M85.89 Other specified disorders of bone density and structure, multiple sites
CPT/HCPCS: 77080

== ENCOUNTER 2022-05-22 09:10 | Day surgery (SDC) | payer OTHER, SELFPAY ==
[2022-05-17 14:44] VITALS: BMI 28.5
--- NOTE | 2022-05-18 14:11 | P.CONAN_ITS ---
Documented by User: Sasha Henry NP 05/18/22 14:25 HPI - Anesthesia Eval Consult details Narrative: 71yo M for TUR Bladder Tumor with Gemcitabine s/p TURBT 12/2020 with [facility]-LMA [facility] 04/27/22 with seizure. Known seizure disorder. F/U with neuro 05/08/22. Increased Keppra PMFSH Active Problems Active Problems: All Active Problems (Updated 04/27/22 @ 19:15 by Kanu Lan MD) Prostate cancer metastatic to bone (Acute) Osteopenia due to cancer therapy (Acute) Recurrent UTI (urinary tract infection) (Acute) Migraine headache without aura (Acute) Seizure disorder (Acute) Cerebral microvascular disease (Acute) Bladder cancer (Acute) Past Medical History Medical History (Updated 05/19/22 @ 09:17 by Merle Salcido, ERNESTO) Bladder cancer Bladder tumor Bone cancer 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 Elevated cholesterol Hematuria HTN (hypertension) Prostate CA Tremor Surgical History Surgical History (Updated 05/17/22 @ 14:44 by Radha Moncada, ERNESTO) H/O prostate biopsy History of cystoscopy Hx of colonoscopy Social History Social History Household Members: Spouse Housing: House Are you a primary child care centre director to a significant other at home: No Do you presently have visiting nurse or other home services: No Alcohol intake: never Patient Tobacco Use Status: Never used Tobacco Second Hand Smoke Exposure: No service: No Current occupational status: retired Meds Allergies Allergy/AdvReac Type Severity Reaction Status Date / Time oxycodone [Percocet] AdvReac Intermediate face got Verified 05/12/22 08:58 really red Home Medications Medication Instructions Recorded Confirmed Last Taken Type atorvastatin 40 mg tablet 1 tab PO BEDTIME 07/19/20 05/17/22 07/09/21 History cholecalciferol (vitamin D3) 50 1 cap PO DAILY 12/07/20 05/17/22 07/10/21 History mcg (2,000 unit) capsule riboflavin (vitamin B2) 100 mg 200 mg PO BID 01/05/21 05/17/22 07/10/21 History tablet magnesium 200 mg tablet 250 mg PO BID 05/14/21 05/17/22 07/10/21 History tamsulosin 0.4 mg capsule 1 cap PO BID 07/10/21 05/17/22 07/10/21 History abiraterone 250 mg tablet 500 mg PO BEDTIME 05/17/22 05/17/22 Unknown History levetiracetam 500 mg tablet 1,000 mg PO BID 05/17/22 05/17/22 05/22/22 History (Keppra) topiramate 25 mg tablet 50 mg PO BID 05/17/22 05/17/22 05/22/22 History aspirin 81 mg tablet,delayed 81 mg PO DAILY 05/19/22 05/19/22 Unknown History release Exam Exam Date and Time: May 18, 2022 1411 Height,Weight and Vital Signs: Height 6 ft Weight 95.254 kg Pertinent Lab Results Pertinent Lab Results: Laboratory Tests 04/27/22 04/27/22 17:08 17:08 WBC 7.0 Hgb 13.6 L Hct 40.6 L Plt Count 232 Sodium 139 Potassium 4.4 Chloride 107 Carbon Dioxide 24 BUN 31 H Creatinine 1.51 H Narrative Narrative: EKG 04/2022 Vent. Rate : 062 BPM ? ? Atrial Rate : 062 BPM ?? P-R Int : 148 ms? QRS Dur : 110 ms ? ? QT Int : 458 ms ? ? ? P-R-T Axes : 019 -64 014 degrees ?? QTc Int : 464 ms ? Normal sinus rhythm Left anterior fascicular block Abnormal ECG When compared with ECG of 16-MAR-2022 19:16, No significant change was found CT head/brain wo con 04/27/22 IMPRESSION: ? 1. No intracranial hemorrhage or calvarial fracture. 2. No traumatic subluxation or acute cervical spine fracture. Documented by User: Lorenzo Shoemaker MD 05/22/22 17:19 HPI - Anesthesia Eval Consult details Narrative: 71yo M for TUR Bladder Tumor with Gemcitabine CVA s/p TURBT 12/2020 with GA-LMA 5 [facility] ED 04/27/22 with seizure. Known seizure disorder. F/U with neuro 05/08/22. Increased Keppra PMFSH Past Medical History Medical History (Updated 05/19/22 @ 09:17 by Merle Salcido, ERNESTO) Bladder cancer Bladder tumor Bone cancer 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 Elevated cholesterol Hematuria HTN (hypertension) Prostate CA Tremor Functional capacity: uses cane/walker Family History Family history of problems with anesthesia: No Surgical History Surgical History (Updated 05/17/22 @ 14:44 by Radha Moncada RN) H/O prostate biopsy History of cystoscopy Hx of colonoscopy History of Problems with Anesthesia: No Social History Social History Household Members: Spouse Housing: House Are you a primary child care centre director to a significant other at home: No Do you presently have visiting nurse or other home services: No Alcohol intake: never Patient Tobacco Use Status: Never used Tobacco Second Hand Smoke Exposure: No service: No Current occupational status: retired Meds Allergies Allergy/AdvReac Type Severity Reaction Status Date / Time oxycodone [Percocet] AdvReac Intermediate face got Verified 05/12/22 08:58 really red Home Medications Medication Instructions Recorded Confirmed Last Taken Type atorvastatin 40 mg tablet 1 tab PO BEDTIME 07/19/20 05/17/22 07/09/21 History cholecalciferol (vitamin D3) 50 1 cap PO DAILY 12/07/20 05/17/22 07/10/21 History mcg (2,000 unit) capsule riboflavin (vitamin B2) 100 mg 200 mg PO BID 01/05/21 05/17/22 07/10/21 History tablet magnesium 200 mg tablet 250 mg PO BID 05/14/21 05/17/22 07/10/21 History tamsulosin 0.4 mg capsule 1 cap PO BID 07/10/21 05/17/22 07/10/21 History abiraterone 250 mg tablet 500 mg PO BEDTIME 05/17/22 05/17/22 Unknown History levetiracetam 500 mg tablet 1,000 mg PO BID 05/17/22 05/17/22 05/22/22 History (Keppra) topiramate 25 mg tablet 50 mg PO BID 05/17/22 05/17/22 05/22/22 History aspirin 81 mg tablet,delayed 81 mg PO DAILY 05/19/22 05/19/22 Unknown History release Exam Airway Mallampati Class: IV TM Dist: >3cm Neck ROM: Full Loose/Missing/Broken Teeth: Yes Heart: S1,S2 Lungs: b/l breath sounds Assessment and Plan Assessment Anesthesia Assessment: Anesthesia Plan Discussed and Chart Reviewed Final Anesthetic Review Family History of Problems with Anesthesia: No History of Problems with Anesthesia: No NPO: Yes ASA Class: III Final Preanesthetic Review: Meds/Allgs Chart Reviewed, Consent Obtained/Reviewed and Anes Risks/Benef Reviewed Patient Risk: Intermediate Procedure Risk: Intermediate Anesthetic Plan Anesthetic Plan: GA Disposition: Standard PACU
[2022-05-22] VITALS (10 sets, daily range): BP systolic 117–178; BP diastolic 74–107; PULSE 54–85; RESP 16–20; TEMP 36.1–36.2; O2SAT 97–100
[2022-05-22] MEDS: Lactated Ringers 1,000 ML 100 ML IVCONT (09:41)
--- NOTE | 2022-05-22 11:29 | MHC.SHP ---
Pre-Procedural Eval Section A Date of Service: 05/22/22 The patient is an INPATIENT: No Changes since office visit: No Cold of Flu in the past 2 weeks, No New Medical Problems, No Changes in Medication and No Patient answered all questions The History & Physical has been completed within 30 days and I have reviewed it.: Yes Section B Chief Complaint: bladder cancer Details of Present Illness: cysto, bladder biopsy with fulgeration and gemcitabine Allergies: Allergies Allergy/AdvReac Type Severity Reaction Status Date / Time oxycodone [Percocet] AdvReac Intermediate face got Verified 05/12/22 08:58 really red Plan I have reviewed the history and physical and performed a pertinent physical examination on my patient. No changes have occurred unless specified.
--- NOTE | 2022-05-22 12:32 | P.OP_ITS ---
Operative Note Operative Note Date of Service: 05/22/22 Narrative: PreOperative Diagnosis: bladder cancer Post Operative Diagnosis: bladder cancer Procedure: TURBT large (multiple sites) with narrow band imaging and Gemcit abine installation Surgeon: Dr Dom Maier Anesthesia: general Indications for procedure: Recurrent low-grade bladder cancer on cystoscopy from office Procedure: After informed consent was verified the patient was brought to the operating room and placed in a supine position. Anesthesia was administered per protocol. The patient was placed in a modified dorsal lithotomy position and prepped and draped in a sterile fashion. Safety pause time-out was performed. Antibiotics were confirmed. A 26 Bulgarian continuous flow resectoscope was inserted per urethra. The visual obturator was used in order to minimize potential for urethral damage. on entry to the bladder we were able to see 3 small lesions along the base of the bladder to were the right sidewall. Looking around the bladder there were 3 other lesions in the largest lesion approximately 2 cm was on the dome of the bladder. each of the 6 lesions was removed using the resectoscope. Cautery was applied for approximately 0.5 cc around the stalk of each lesion. Narrow band imaging was used to re-examined the bladder at completion of the resection. Two other flat lesions against the bladder wall was seen and fulgurated. The bladder was emptied and specimens were removed and sent for pathology. At the completion of the procedure the bladder was irrigated. The cystoscope was removed. A [address] Stallworth catheter was inserted into the bladder. 10 cc was placed in the balloon. 2 g of gemcitabine in 100 cc of normal saline was instilled into the bladder. The flow from the catheter was left clamped. The inflow to the catheter was attached to a 3 L normal saline bag. The patient tolerated the procedure well. They were extubated in the operating room and transferred in stable condition to the recovery area. Gemcitabine will remain in the bladder for 1 hour. At the completion of 1 hour the clamp will be removed. The gemcitabine will be allowed to egress to the urine collection bag. The 3 L bag of normal saline will be run at maximum rate through the bladder in order to dilute any residual gemcitabine. The Stallworth c atheter will then be removed. Pathology: bladder tumors Drains: stallworth catheter
== END 2022-05-22 15:26 | disposition home or self-care (01) ==
PROVIDERS: PCP Family Medicine; Visit Provider Urology
PROC: 0TBB8ZZ Excision of Bladder, Via Natural or Artificial Opening Endoscopic (ICD-10-PCS; CPT 52240; principal; 2022-05-22 11:30)
DX: C67.1 Malignant neoplasm of dome of bladder (principal); C61 Malignant neoplasm of prostate; C79.51 Secondary malignant neoplasm of bone; M85.80 Other specified disorders of bone density and structure, unspecified site; I10 Essential (primary) hypertension; G40.209 Localization-related (focal) (partial) symptomatic epilepsy and epileptic syndromes with complex partial seizures, not intractable, without status epilepticus; E78.00 Pure hypercholesterolemia, unspecified; Z79.52 Long term (current) use of systemic steroids; Z79.82 Long term (current) use of aspirin; Z79.899 Other long term (current) drug therapy; Z88.8 Allergy status to other drugs, medicaments and biological substances
CPT/HCPCS: 52240; 51720; 88307; J1100; J1956; J2250; J2405; J3010; J9201

== ENCOUNTER 2022-05-24 09:11 | Emergency (ER) | payer OTHER, SELFPAY ==
--- NOTE | ~2022-05-24 | CT_ITS ---
EXAMINATION: CT ABDOMEN AND PELVIS WITHOUT CONTRAST CLINICAL INFORMATION: Low back pain. History of prostate/bladder cancer with bony metastases COMPARISON: CT abdomen pelvis 05/14/2021 TECHNIQUE: Multidetector volumetric imaging was performed from the superior aspect of the liver through the pubic symphysis. Sagittal and coronal reformatted images were obtained on the technologist's workstation. This CT examination was performed using dose optimization techniques as appropriate, variously including the following: *Automated exposure control *Adjustment of mA and/or kV according to patient size (this includes techniques or standardized protocols for targeted exams where dose is matched to indication/reason for exam; i.e. extremities or head) *Use of iterative reconstruction technique DLP: 799 mGy-cm FINDINGS: Visualized lung bases demonstrate mild atelectasis versus scarring. The liver demonstrates normal size, contour and attenuation. There are a few sub-5 mm hepatic hypodensities which are too small to accurately characterize. The gallbladder is normal in appearance. Punctate calcification along the gallbladder wall. The pancreas, spleen and adrenal glands are unremarkable. Symmetrically sized kidneys. No renal calculi or hydronephrosis bilaterally. Mild bilateral perinephric stranding again demonstrated, nonspecific. Normal caliber loops of small and large bowel. Mild to moderate colonic diverticulosis. No CT evidence to suggest active diverticulitis. Normal appendix. Normal caliber abdominal aorta. No retroperitoneal lymphadenopathy. The bladder is underdistended. There is subtle irregularity of the anterior bladder wall with some adjacent mesenteric stranding and foci of free air. The prostate gland is normal in size. No gross free pelvic fluid. Small left fat-containing inguinal hernia. No inguinal lymphadenopathy. Degenerative changes of the spine. CT/CT abdomen pelvis wo con IMPRESSION: Subtle irregularity of the anterior bladder wall with some adjacent mesenteric stranding and foci of free air. Findings are concerning for microperforation of the bladder. Clinical correlation recommended. Direct inspection of the bladder likely warranted. This Critical Result was discussed with BAILEY Stiles at 10:46 AM on 05/24/2022 and it was ascertained that the content and urgency of the report was understood at the time of direct communication. After the discussion, I was informed that the patient had undergone bladder surgery 2 days ago. Depending on the type of bladder surgery in is possible these findings represent post surgical changes. There is no gross extravasation of urine within the pelvis. Urgent urological consultation recommended. Clinical Fleischner guidelines were followed.
[2022-05-24 09:37] VITALS: BP 138/82; PULSE 52; RESP 18; TEMP 36.6; O2SAT 98; BMI 29.6
--- NOTE | 2022-05-24 09:57 | ED_ITS ---
HPI - General Adult General Chief complaint: General Medical Stated complaint: BACK PAIN Time Seen by Provider: 05/24/22 09:24 Source: patient and EMS Mode of arrival: EMS History of Present Illness HPI narrative: 71-year-old male with PMHx prostate CA, bladder CA with bony Mets, seizure disorder, HLD, HTN, s/p transurethral resection of bladder tumor on 05/[address] Maier, presenting to the ED complaining of acute on chronic low back pain worsening since last night. Reports back pain began after having multiple seizures at home 1 month ago, believed to hit his back. Denies more recent injury/or trauma. Took Tylenol without relief at home. Denies fever, chills, numbness, tingling, weakness, urinary incontinence/retention, abdominal pain, hematuria/dysuria Onset (ago): day(s) Related Data Home Medications Medication Instructions Recorded Confirmed atorvastatin 40 mg tablet 1 tab PO BEDTIME 07/19/20 05/17/22 cholecalciferol (vitamin D3) 50 1 cap PO DAILY 12/07/20 05/17/22 mcg (2,000 unit) capsule riboflavin (vitamin B2) 100 mg 200 mg PO BID 01/05/21 05/17/22 tablet magnesium 200 mg tablet 250 mg PO BID 05/14/21 05/17/22 tamsulosin 0.4 mg capsule 1 cap PO BID 07/10/21 05/17/22 abiraterone 250 mg tablet 500 mg PO BEDTIME 05/17/22 05/17/22 levetiracetam 500 mg tablet 1,000 mg PO BID 05/17/22 05/17/22 (Keppra) topiramate 25 mg tablet 50 mg PO BID 05/17/22 05/17/22 aspirin 81 mg tablet,delayed 81 mg PO DAILY 05/19/22 05/19/22 release Previous Rx's Medication Instructions Recorded metoclopramide HCl 10 mg tablet 10 mg PO Q6H PRN headaches,nausea, 10/10/21 (Reglan) vomiting #14 tabs kdkijawmkv-dimruiwezrydo-pzjrfann 1 cap PO TID PRN pain #7 caps 11/07/21 50 mg-300 mg-40 mg capsule (Fioricet) prednisone 2.5 mg tablet 2.5 mg PO BID 30 days #60 tabs 12/23/21 dexamethasone 6 mg tablet 6 mg PO DAILY 3 days #3 tabs 01/03/22 lidocaine 4 % topical patch 1 patch topical DAILY PRN pain #10 01/21/22 (Aspercreme (lidocaine)) ea tramadol 50 mg tablet 50 mg PO Q6H PRN pain #20 tabs 01/21/22 cyclobenzaprine 5 mg tablet 5 mg PO Q8H PRN pain (scale score 05/24/22 7-10) 5 days #14 tabs levofloxacin 750 mg tablet 750 mg PO DAILY 5 days #5 tabs 05/24/22 lidocaine 5 % topical patch 1 patch topical DAILY PRN pain #30 05/24/22 (Lidoderm) ea naproxen 500 mg tablet 500 mg PO BID PRN pain 10 days #20 05/24/22 tabs Allergies Allergy/AdvReac Type Severity Reaction Status Date / Time oxycodone [Percocet] AdvReac Intermediate face got Verified 05/12/22 08:58 really red Review of Systems Review of Systems: Constitutional:No Fever, No Chills, No Night Sweats, No Fatigue, No Malaise ENT/Mouth: No Ear Pain, No Nasal Congestion, No Hoarseness, No sore throat, No Rhinorrhea, No Swallowing Difficulty Eyes: No Eye Pain, No Swelling, No Redness, No Vision Changes Cardiovascular: No Chest Pain, No SOB, No Edema, No Palpitations Respiratory: No Cough, No Sputum, No Dyspnea Gastrointestinal: No Nausea, No Vomiting, No Diarrhea, No Constipation, No Abdominal pain Genitourinary: No irregular bleeding, No Dysuria, No Urinary Frequency, No Hematuria, No Urinary Incontinence/retention, No Flank Pain, No Urinary Flow Changes Musculoskeletal: + back pain, No Myalgias, No Joint Swelling Skin: No Skin Lesions, No rash Neuro: No Weakness, No Numbness, No Paresthesias, No Dizziness, No Headache Yes all other systems are reviewed and are negative Constitutional: Constitutional: Reports as per HPI Neurologic: Denies Sensory deficit (Neuro) [facility] Past Medical History Attestation statement: The following information was validated with the patient. Medical History (Updated 05/24/22 @ 14:12 by BAILEY Stiles) Bladder cancer Bladder tumor Bone cancer 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 Elevated cholesterol Hematuria HTN (hypertension) Prostate CA Tremor Surgical History (Updated 05/17/22 @ 14:44 by Radha Moncada RN) H/O prostate biopsy History of cystoscopy Hx of colonoscopy Social History Social History Household Members: Spouse Housing: House Are you a primary childcare administrator to a significant other at home: No Do you presently have visiting nurse or other home services: No Alcohol intake: never Patient Tobacco Use Status: Never used Tobacco Second Hand Smoke Exposure: No Advance Directives: Yes Advance Directives on File: Yes Advance Directives Date on File: 05/22/22 service: No Current occupational status: retired Physical Exam ED Vital Signs: Vital Signs - 24 hr 05/24/22 09:37 05/24/22 12:00 Temperature 97.9 F Pulse Rate 52 54 Respiratory Rate 18 18 Blood Pressure 138/82 Pulse Oximetry 98 96 Oxygen Delivery Method Room Air Room Air BMI result Body Mass Index 29.6 Const General: cooperative and no acute distress Orientation/consciousness: patient oriented x3 Limitations: no limitations HENMT Head: Yes normal to inspection and Yes atraumatic Ears: hearing grossly normal bilaterally General nose exam: Normal external nose present Face and sinus: Yes normal facial exam Eyes General: appearance normal, both eyes and all related structures EOM: EOMs intact bilaterally Neck Other: No midline cervical spinous tenderness Neck: Yes normal visual inspection and Yes no meningeal signs Resp Effort & Inspection: normal respiratory effort and no respiratory distress Auscultation: clear to auscultation bilaterally Cardio Rate: regular rate Heart sounds: S1 normal heart sound present and S2 normal heart sound present GI Inspection: Yes normal to inspection Palpation (GI): Soft to palpation, nontender, no guarding and not rigid General: Yes no CVA tenderness Back/Spine/Pelvis Other: No midline thoracic/lumbar spinous tenderness/step-off or deformity. + lower lumbar bilateral paraspinal and MSK/upper buttock tenderness to palpation reproducing subjective complaint. No ecchymosis/erythema Back: no CVA tenderness Skin Rashes: no rashes Wounds: no wounds Neuro Other: Strength intact throughout. No saddle anesthesia. Sensation intact to light touch. Neurovascular intact distally General: patient oriented x3, gait normal, tone normal, moves all extremities and no meningeal signs Gait exam (Neuro): Normal gait present Motor exam (neuro): 5/5 motor strength present throughout Sensory Exam: No Sensory deficit (Neuro) Extrem General: Yes normal to inspection Course Course Course Narrative: -no leukocytosis. H&H stable. ESR/CRP WNL > unlikely epidural abscess. BUN chronically elevated. T bili acute on chronically elevated. 1150--CT abdomen pelvis wo con IMPRESSION: Subtle irregularity of the anterior bladder wall with some adjacent mesenteric stranding and foci of free air. Findings are concerning for microperforation of the bladder. Clinical correlation recommended. Direct inspection of the bladder likely warranted. ? This Critical Result was discussed with BAILEY Stiles at 10:46 AM on 05/24/2022 and it was ascertained that the content and urgency of the report was understood at the time of direct communication. ? After the discussion, I was informed that the patient had undergone bladder surgery 2 days ago. Depending on the type of bladder surgery in is possible these findings represent post surgical changes. There is no gross extravasation of urine within the pelvis. Urgent urological consultation recommended. ? -Lactic/blood cultures added >> consulted Urology Dr. Maier >1220--case discussed with Urology Dr. Maier, states could be macro perforation, recommended Blanco catheter placement and p.o. antibiotics x5 days and will have patient follow-up in the office -patient given p.o. Levaquin in the ED. Lactic acid negative. Discussed PT/STR for acute on chronic back pain, patient would like to be discharged home, will try pain control w/Flexeril -patient tolerated Blanco catheter placement well rib also reports symptomatic improvement after p.o. Flexeril and Lidoderm patch, was able to stand without difficulty. Results discussed with patient including need close follow-up with Urology, he verbalized understanding and feel safe for discharge home at this time. -UA infected with wbc's, leuk esterase, and blood. This will be treated with p.o. Levaquin Medical Decision Making MDM Narrative Medical decision making narrative: 71-year-old male with PMHx prostate CA, bladder CA with bony Mets, seizure disorder, HLD, HTN, s/p transurethral resection of bladder tumor on 05/[address] Maier, presenting to the ED complaining of acute on chronic low back pain worsening since last night. On exam vital signs stable, NAD, nontoxic hue earing, no midline spinous tenderness throughout, paraspinal tenderness as noted above. No red flag symptoms. Sensation intact throughout, no saddle anesthesia. Abdomen is soft/nontender. Concern for exacerbation of bony Mets vs MSK pain/strain vs ?recent surgical complication. Epidural abscess lower on differential without fever/neuro deficits Plan: Labs, UA, ESR/CRP, CT abdomen/pelvis. Case discussed with Dr. Simon who is in agreement with plan Medical Records Medical records reviewed: Yes I reviewed the patient's medical records. Lab Data Lab results reviewed: Yes I reviewed the patient's lab results. Result diagrams: 05/24/22 10:20 05/24/22 10:20 Labs: Lab Results 05/24/22 05/24/22 05/24/22 Range/Units 10:20 10:20 10:20 WBC 8.0 (4.8-10.8) X10*3/uL RBC 3.82 L (4.60-5.80) X10*6/uL Hgb 12.8 L (14.0-18.0) g/dl Hct 38.9 L (42.0-52.0) % MCV 101.8 H (80.0-98.0) fL MCH 33.5 H (27.0-33.0) pg MCHC 32.9 (31.0-36.0) g/dl RDW 14.0 (11.0-16.0) % Plt Count 188 (160-400) X10*3/uL MPV 10.6 (9.4-12.4) fL Immature Gran % (Auto) 0.2 (0.0-0.4) % Neut % (Auto) 63.7 (45-73) % Lymph % (Auto) 30.5 (20-40) % [place] % (Auto) 3.6 (2-11) % Eos % (Auto) 1.4 (0-4) % Baso % (Auto) 0.6 (0-2) % Lymph # (Auto) 2.4 (1.2-4.9) X10*3/uL [place] # (Auto) 0.3 (0.1-1.2) X10*3/uL Eos # (Auto) 0.1 (0.0-0.4) X10*3/uL Baso # (Auto) 0.1 (0.0-0.2) X10*3/uL Abs Immat Gran (auto) 0.02 (0.00-0.03) X10*3/uL Absolute Neuts (auto) 5.1 (2.0-8.3) x10*3/uL Absolute Nucleated RBC 0.000 (0.0-0.012) X10*3/uL Nucleated RBC % (auto) 0.0 (0.0-0.2) /100WBC ESR 6 (0-15) MM/HR Sodium 143 (135-145) mmol/L Potassium 4.2 (3.3-5.1) mmol/L Chloride 110 H (96-108) mmol/L Carbon Dioxide 25 (22-29) mmol/L Anion Gap 12 (12-20) BUN 31 H (9-16) mg/dL Creatinine 1.20 (0.5-1.4) mg/dL Estim Creat Clear Calc 70.8 Estimated GFR > 60 Random Glucose 90 (60-115) mg/dL Lactic Acid (0.5-2.0) mmol/L Calcium 8.7 (8.4-10.2) mg/dL Magnesium 2.0 (1.6-2.6) mg/dL Total Bilirubin 2.4 H (0.0-1.0) mg/dL Direct Bilirubin 0.6 H (0.0-0.5) mg/dL AST 23 (5-37) U/L ALT 30 (0-40) U/L Alkaline Phosphatase 103 D (39-117) U/L C-Reactive Protein 0.09 (< or = 0.50) mg/dL Total Protein 6.3 L (6.5-8.0) g/dL Albumin 3.5 (3.5-5.0) g/dL Urine Color Urine Appearance Urine pH (5.0-8.0) Ur Specific [place] (1.005-1.025) Urine Protein (NEG-TRACE) MG/DL Urine Glucose (UA) (NEG) MG/DL Urine Ketones (NEG) MG/DL Urine Blood (NEG) Urine Nitrite (NEG) Ur Leukocyte Esterase (NEG) Urine RBC (0) /HPF Urine WBC (0-4) /HPF Ur Squamous Epith Cells /LPF Urine Bacteria /LPF 05/24/22 05/24/22 Range/Units 12:09 13:08 WBC (4.8-10.8) X10*3/uL RBC (4.60-5.80) X10*6/uL Hgb (14.0-18.0) g/dl Hct (42.0-52.0) % MCV (80.0-98.0) fL MCH (27.0-33.0) pg MCHC (31.0-36.0) g/dl RDW (11.0-16.0) % Plt Count (160-400) X10*3/uL MPV (9.4-12.4) fL Immature Gran % (Auto) (0.0-0.4) % Neut % (Auto) (45-73) % Lymph % (Auto) (20-40) % [place] % (Auto) (2-11) % Eos % (Auto) (0-4) % Baso % (Auto) (0-2) % Lymph # (Auto) (1.2-4.9) X10*3/uL [place] # (Auto) (0.1-1.2) X10*3/uL Eos # (Auto) (0.0-0.4) X10*3/uL Baso # (Auto) (0.0-0.2) X10*3/uL Abs Immat Gran (auto) (0.00-0.03) X10*3/uL Absolute Neuts (auto) (2.0-8.3) x10*3/uL Absolute Nucleated RBC (0.0-0.012) X10*3/uL Nucleated RBC % (auto) (0.0-0.2) /100WBC ESR (0-15) MM/HR Sodium (135-145) mmol/L Potassium (3.3-5.1) mmol/L Chloride (96-108) mmol/L Carbon Dioxide (22-29) mmol/L Anion Gap (12-20) BUN (9-16) mg/dL Creatinine (0.5-1.4) mg/dL Estim Creat Clear Calc Estimated GFR Random Glucose (60-115) mg/dL Lactic Acid 0.9 (0.5-2.0) mmol/L Calcium (8.4-10.2) mg/dL Magnesium (1.6-2.6) mg/dL Total Bilirubin (0.0-1.0) mg/dL Direct Bilirubin (0.0-0.5) mg/dL AST (5-37) U/L ALT (0-40) U/L Alkaline Phosphatase (39-117) U/L C-Reactive Protein (< or = 0.50) mg/dL Total Protein (6.5-8.0) g/dL Albumin (3.5-5.0) g/dL Urine Color STRAW Urine Appearance HAZY Urine pH 7.0 (5.0-8.0) Ur Specific [place] 1.010 (1.005-1.025) Urine Protein NEG (NEG-TRACE) MG/DL Urine Glucose (UA) 100 H (NEG) MG/DL Urine Ketones NEG (NEG) MG/DL Urine Blood 3+ H (NEG) Urine Nitrite NEG (NEG) Ur Leukocyte Esterase 2+ H (NEG) Urine RBC 15-29 H (0) /HPF Urine WBC 15-29 H (0-4) /HPF Ur Squamous Epith Cells TRACE /LPF Urine Bacteria TRACE /LPF Discharge Plan Discharge Clinical Impression: Post surgical complication, Lumbar back pain, Acute UTI Patient Disposition: Home, Self-Care Instructions: Back Pain (ED) Additional Instructions: Your CT scan is suggestive of a microperforation of her bladder which is likely from the procedure you recently had. You need to keep Blanco catheter in for 5 days and take Levaquin for 5 days as prescribed. Please call Dr. Maier for close follow-up. If you develop fever, chills, abdominal pain, nausea/vomiting or worsening/unbearable pain, urinary incontinence or retention please return to the ED immediately Flexeril is a muscle relaxer, take at night as it makes you drowsy, do not drive, drink alcohol, or operate machinery while taking it Naproxen as an anti-inflammatory / pain medication, take with food Lidoderm patches are numbing patches, apply to painful area In addition take Tylenol at home Prescriptions: New lidocaine [Lidoderm] 5 % adhesive patch,medicated 1 patch topical DAILY MDD remove after 12 hours PRN (Reason: pain) Qty: 30 0RF Rx Instructions: leave on most painful area for up to 12 hrs naproxen 500 mg tablet 500 mg PO BID PRN (Reason: pain) 10 Days Qty: 20 0RF cyclobenzaprine 5 mg tablet 5 mg PO Q8H PRN (Reason: pain (scale score 7-10)) 5 Days Qty: 14 0RF levofloxacin 750 mg tablet 750 mg PO DAILY 5 Days Qty: 5 0RF No Action cholecalciferol (vitamin D3) 50 mcg (2,000 unit) capsule 1 cap PO DAILY magnesium 200 mg Tablet 250 mg PO BID atorvastatin 40 mg tablet 1 tab PO BEDTIME tamsulosin 0.4 mg capsule 1 cap PO BID fkwdhmkqes-tcduyzkumqpif-jcsy [Fioricet] 50-300-40 mg capsule 1 cap PO TID PRN (Reason: pain) Qty: 7 0RF Rx Instructions: with no more than 2 days per week dexamethasone 6 mg tablet 6 mg PO DAILY 3 Days Qty: 3 0RF lidocaine [Aspercreme (lidocaine)] 4 % adhesive patch,medicated 1 patch topical DAILY PRN (Reason: pain) Qty: 10 0RF tramadol 50 mg tablet 50 mg PO Q6H PRN (Reason: pain) Qty: 20 0RF levetiracetam [Keppra] 500 mg tablet 1,000 mg PO BID topiramate 25 mg tablet 50 mg PO BID abiraterone 250 mg tablet 500 mg PO BEDTIME Rx Instructions: must be taken on empty stomach, at least 1 hr before or 2 hrs after a meal/food aspirin 81 mg Tablet,Delayed Release (Dr/Ec) 81 mg PO DAILY metoclopramide HCl [Reglan] 10 mg tablet 10 mg PO Q6H PRN (Reason: headaches,nausea, vomiting) Qty: 14 0RF riboflavin (vitamin B2) 100 mg tablet 200 mg PO BID prednisone 2.5 mg tablet 2.5 mg PO BID 30 Days Qty: 60 5RF lidocaine HCl 2 % jelly in applicator 10 ml intra-urethral ONCE Qty: 10 0RF
[2022-05-24 10:24] LABS: MANUAL DIFF FLAG NO
[2022-05-24 10:29] LABS: Basophils Absolute Auto 0.1 X10*3/uL (0.0-0.2); Basophils Percent Auto 0.6 % (0-2); Eosinophils Absolute Auto 0.1 X10*3/uL (0.0-0.4); Eosinophils Percent Auto 1.4 % (0-4); Hematocrit 38.9 % (42.0-52.0); Hemoglobin 12.8 g/dl (14.0-18.0); Imm Gran Abs Auto 0.02 X10*3/uL (0.00-0.03); Imm Gran Pct Auto 0.2 % (0.0-0.4); Lymphocytes Absolute Auto 2.4 X10*3/uL (1.2-4.9); Lymphocytes Percent Auto 30.5 % (20-40); Mean Corpuscular HGB Conc 32.9 g/dl (31.0-36.0); Mean Corpuscular Hemoglobin 33.5 pg (27.0-33.0); Mean Corpuscular Volume 101.8 fL (80.0-98.0); Mean Platelet Volume 10.6 fL (9.4-12.4); Monocytes Absolute Auto 0.3 X10*3/uL (0.1-1.2); Monocytes Percent Auto 3.6 % (2-11); Neutrophils Absolute Auto 5.1 x10*3/uL (2.0-8.3); Neutrophils Percent Auto 63.7 % (45-73); Platelet Count 188 X10*3/uL (160-400); Red Blood Count 3.82 X10*6/uL (4.60-5.80)
[2022-05-24 10:51] LABS: Alanine Aminotransferase 30 U/L (0-40); Albumin Level 3.5 g/dL (3.5-5.0); Alkaline Phosphatase 103 U/L (39-117); Anion Gap 12 (12-20); Aspartate Amino Transferase 23 U/L (5-37); Bilirubin Direct 0.6 mg/dL (0.0-0.5); Bilirubin Total 2.4 mg/dL (0.0-1.0); Blood Urea Nitrogen 31 mg/dL (9-16); C Reactive Protein 0.09 mg/dL (< or = 0.50); Calcium 8.7 mg/dL (8.4-10.2); Carbon Dioxide 25 mmol/L (22-29); Chloride 110 mmol/L (96-108); Creatinine Clr Calc Pharmacy 70.8; Estimated Glomerular Filt Rate > 60; Glucose Random 90 mg/dL (60-115); Potassium 4.2 mmol/L (3.3-5.1); Sodium 143 mmol/L (135-145); Total Protein 6.3 g/dL (6.5-8.0)
[2022-05-24 11:11] LABS: Erythrocyte Sedimentation Rate 6 MM/HR (0-15)
[2022-05-24 12:00] VITALS: PULSE 54; RESP 18; O2SAT 96
[2022-05-24 12:31] LABS: Lactic Acid 0.9 mmol/L (0.5-2.0)
[2022-05-24] MEDS: Lidocaine 4 % Patch ADH..PATCH 1 PATCH TRANSDERMA (12:39)
[2022-05-24] MEDS: levoFLOXacin 750 MG TABLET PO (12:40)
[2022-05-24] MEDS: Cyclobenzaprine HCl 5 MG TABLET PO (12:40)
--- NOTE | 2022-05-24 13:09 | PC.NURSE ---
reports adequate pain relief s/p lidocaine patch/flexeril administration. Tolerated Blanco cath placement
[2022-05-24 13:15] LABS: Appearance Urine HAZY; Color Urine STRAW; Glucose Urine UA 100 MG/DL (NEG); Leukocyte Esterase Urine 2+ (NEG); Nitrite Urine NEG (NEG); UACC Culture Trigger YES; Urine Blood 3+ (NEG); Urine Ketones NEG (NEG); Urine Protein NEG (NEG-TRACE)
[2022-05-24 13:31] LABS: Squamous Epithelial Cell Urine TRACE /LPF
[2022-05-24 13:32] LABS: Bacteria Urine TRACE /LPF
== END 2022-05-24 14:29 | disposition home or self-care (01) ==
PROVIDERS: Physician Assistant; Emergency Provider Internal Medicine; PCP Family Medicine
DX: N99.89 Other postprocedural complications and disorders of genitourinary system (principal); G89.29 Other chronic pain; M54.50 Low back pain, unspecified; N39.0 Urinary tract infection, site not specified; C61 Malignant neoplasm of prostate; C79.11 Secondary malignant neoplasm of bladder; C79.51 Secondary malignant neoplasm of bone; I10 Essential (primary) hypertension; E78.5 Hyperlipidemia, unspecified; Z79.02 Long term (current) use of antithrombotics/antiplatelets; Z79.899 Other long term (current) drug therapy; Z79.82 Long term (current) use of aspirin
CPT/HCPCS: 36415; 74176; 80048; 80076; 81001; 83605; 83735; 85025; 85652; 86140; 87040; 87086; 99284

== ENCOUNTER → 2022-06-06 08:36 | Outpatient (BNVA) | payer OTHER, SELFPAY | PROVIDERS: PCP Family Medicine; Visit Provider Urology | DX: C61 Malignant neoplasm of prostate (principal); C79.51 Secondary malignant neoplasm of bone; C67.1 Malignant neoplasm of dome of bladder; M85.80 Other specified disorders of bone density and structure, unspecified site | CPT/HCPCS: Q3014 ==

== ENCOUNTER → 2022-06-21 09:37 | Outpatient (REF) | payer OTHER, SELFPAY ==
--- NOTE | ~2022-06-21 | NM_ITS ---
EXAMINATION: NM BONE SCAN OF THE WHOLE BODY CLINICAL INFORMATION: Malignant neoplasm of prostate. History of bladder cancer. COMPARISON: Bone scan to . TECHNIQUE: Multiple gamma scintillation camera images of the whole body were performed 3 hours following the intravenous administration of 34 mCi Tc-99m MDP. FINDINGS: In the head, there is mild increase activity in the nasal cavity region similar to the previous study. No calvarial or skull base activity seen. In the thoracic cage and upper extremities, persistent mild activity seen in bilateral AC joints and sternoclavicular joints from degenerative arthritis. Mild left activity seen along the bilateral medial glenohumeral joints. In the spine, there is minimal dextroscoliosis of the dorsolumbar spine with slight focal activity in the right L5-S1 facet joint. There is mild activity seen along the curvature of the posterior spine, closest to the camera, similar to the previous study. In the pelvis, no abnormal activity is seen. No abnormal activity seen in the right iliac bone. In the lower extremities, minimal increased activity seen in the right medial knee joint and mild proximal anterior tibial shafts, similar to the previous study. No other definite bony abnormalities are noted. The urinary bladder and faint visualization of both kidneys are noted. NM/NM bone scan whole body IMPRESSION: No abnormal skeletal activity seen to suspect any metastatic bone disease. No abnormal activity seen in the right iliac bone either.
[2022-06-30 13:16] LABS: Testosterone, Total <1 ng/dL (250-1100)
== END ==
LOC: HO.NUCMED 09:37
PROVIDERS: PCP Family Medicine; Visit Provider Urology
DX: Z12.5 Encounter for screening for malignant neoplasm of prostate (principal); C61 Malignant neoplasm of prostate; C79.51 Secondary malignant neoplasm of bone
CPT/HCPCS: 36415; 78306; 84153; 84403; A9503

== ENCOUNTER 2022-06-25 12:48 | Emergency (ER) | payer OTHER, SELFPAY ==
--- NOTE | ~2022-06-25 | CT_ITS ---
EXAMINATION: CT HEAD WITHOUT CONTRAST CLINICAL INFORMATION: Seizure. COMPARISON: Head CT's dating between April 27, 2022 and June 03, 2020. TECHNIQUE: Contiguous axial imaging was performed from the skull base to vertex without intravenous administration of contrast. This CT examination was performed using dose optimization techniques as appropriate, variously including the following: *Automated exposure control *Adjustment of mA and/or kV according to patient size (this includes techniques or standardized protocols for targeted exams where dose is matched to indication/reason for exam; i.e. extremities or head) *Use of iterative reconstruction technique DLP: 841 mGy-cm FINDINGS: No intracranial hemorrhage, large infarction, or mass lesion is seen. Chronic, extensive, bilateral periventricular white matter ischemic changes, similar compared with April 27, 2022. No extra-axial collection is appreciated. The ventricles are normal in size and configuration without evidence of hydrocephalus. The visualized paranasal sinuses and mastoid air cells are clear. Right cher bullosa. Deviation of the nasal septum toward the left. CT/CT head/brain wo IV con IMPRESSION: No acute intracranial finding.
[2022-06-25 12:56] VITALS: BP 117/76; PULSE 95; O2SAT 98
--- NOTE | 2022-06-25 12:56 | ED_ITS ---
HPI - General Adult General Chief complaint: Seizure Stated complaint: Seizure Time Seen by Provider: 06/25/22 12:56 Source: patient and EMS Mode of arrival: EMS Limitations: no limitations History of Present Illness HPI narrative: Patient is a 71 year old male presenting to the emergency department today after a seizure. Patient states that he has a history of a seizure disorder for which he follows with Dr. Roth. Patient states that just 1 month ago he had his Keppra increased and today is the first day he had a breakthrough seizure on the new dose. Patient denies any dizziness, lightheadedness, abdominal pain, nausea, vomiting, fever, chills, blurry vision, double vision, loss of vision, chest pain, difficulty breathing, shortness of breath, back pain, night sweats, pain with urination, increased urinary frequency, increased urinary urgency, blood in his urine or stool, syncope or a near syncopal episode, recent trauma or falls, bowel incontinence, bladder incontinence, bowel retention, bladder retention, or any other complaints at this time. Severity: mild Severity scale (1-10): 1 Relieving factors: none Exacerbating factors: none Associated symptoms: seizure Treatments prior to arrival: none Related Data Home Medications Medication Instructions Recorded Confirmed atorvastatin 40 mg tablet 1 tab PO BEDTIME 07/19/20 06/06/22 cholecalciferol (vitamin D3) 50 1 cap PO DAILY 12/07/20 06/06/22 mcg (2,000 unit) capsule riboflavin (vitamin B2) 100 mg 200 mg PO BID 01/05/21 06/06/22 tablet magnesium 200 mg tablet 250 mg PO BID 05/14/21 06/06/22 tamsulosin 0.4 mg capsule 1 cap PO BID 07/10/21 06/06/22 abiraterone 250 mg tablet 500 mg PO BEDTIME 05/17/22 06/06/22 levetiracetam 500 mg tablet 1,000 mg PO BID 05/17/22 06/06/22 (Keppra) topiramate 25 mg tablet 50 mg PO BID 05/17/22 06/06/22 aspirin 81 mg tablet,delayed 81 mg PO DAILY 05/19/22 06/06/22 release Previous Rx's Medication Instructions Recorded metoclopramide HCl 10 mg tablet 10 mg PO Q6H PRN headaches,nausea, 10/10/21 (Reglan) vomiting #14 tabs itysatahzm-fkavxklljghwy-zexnelgk 1 cap PO TID PRN pain #7 caps 11/07/21 50 mg-300 mg-40 mg capsule (Fioricet) dexamethasone 6 mg tablet 6 mg PO DAILY 3 days #3 tabs 01/03/22 lidocaine 4 % topical patch 1 patch topical DAILY PRN pain #10 01/21/22 (Aspercreme (lidocaine)) ea tramadol 50 mg tablet 50 mg PO Q6H PRN pain #20 tabs 01/21/22 cyclobenzaprine 5 mg tablet 5 mg PO Q8H PRN pain (scale score 05/24/22 7-10) 5 days #14 tabs levofloxacin 750 mg tablet 750 mg PO DAILY 5 days #5 tabs 05/24/22 lidocaine 5 % topical patch 1 patch topical DAILY PRN pain #30 05/24/22 (Lidoderm) ea naproxen 500 mg tablet 500 mg PO BID PRN pain 10 days #20 05/24/22 tabs prednisone 2.5 mg tablet 2.5 mg PO BID 30 days #60 tabs 06/13/22 Allergies Allergy/AdvReac Type Severity Reaction Status Date / Time oxycodone [Percocet] AdvReac Intermediate face got Verified 06/05/22 15:48 really red Review of Systems Constitutional: Constitutional: Reports no additional constitutional complaints, Denies chills, Denies fever(s) and Denies night sweats Eyes: Eyes: Reports no additional eye complaints, Denies blurry vision, Denies change in vision, Denies diplopia, Denies eye discharge, Denies loss of vision and Denies eye pain ENT: Denies dizziness Cardiovascular: Cardiovascular: Reports no additional cardiovascular complaints, Denies chest pain, Denies lightheadedness, Denies Loss of Conscious ness and Denies dyspnea Respiratory: Respiratory: Reports no additional respiratory complaints and Denies dyspnea Gastrointestinal: Gastrointestinal: Reports no additional gastrointestinal com plaints, Denies abdominal pain, Denies melena, Denies hematochezia, Denies change in bowel habits and Denies change in stool character Genitourinary: Genitourinary: Reports no additional male genitourinary complaints, Denies hematuria, Denies oliguria, Denies difficulty urinating, Denies dysuria, Denies urinary frequency, Denies urinary hesitancy, Denies urinary incontinence and Denies urinary urgency Musculoskeletal: Musculoskeletal: Reports no additional musculoskeletal complaints, Denies numbness and Denies tingling Neurologic: Denies dizziness, Denies loss of vision, Denies numbness, Reports seizure-like activity and Denies tingling Psychiatric: Psychiatric: Reports no additional psychiatric complaints Endocrine: Endocrine: Reports no additional endocrine complaints Hematologic/Lymphatic: Hematologic/Lymphatic: Reports no additional hematologic/lymphatic complaints Allergic/Immunologic: Allergic/Immunologic: Reports no additional allergic/immunologic complaints PMFSH Past Medical History Attestation statement: The following information was validated with the patient. 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 Elevated cholesterol Hematuria HTN (hypertension) Prostate CA Tremor Surgical History H/O prostate biopsy History of cystoscopy Hx of colonoscopy Social History Social History Household Members: Spouse Housing: House Are you a primary career technical counselor to a significant other at home: No Do you presently have visiting nurse or other home services: No Alcohol intake: never Patient Tobacco Use Status: Never used Tobacco Second Hand Smoke Exposure: No Use of substances other than those prescribed or required for medical reasons: No Advance Directives: Yes Advance Directives on File: Yes Advance Directives Date on File: 05/22/22 service: No Current occupational status: retired Physical Exam ED Vital Signs: Vital Signs - 24 hr 06/25/22 12:57 06/25/22 14:16 Temperature 98 F Pulse Rate 69 68 Respiratory Rate 19 18 Blood Pressure 126/79 134/71 Pulse Oximetry 98 98 Oxygen Delivery Method Room Air Room Air BMI result Body Mass Index 29.2 Const General: cooperative, no acute distress, alert and awake Nutritional Appearance: well nourished Orientation/consciousness: patient oriented x3 Limitations: no limitations HENMT Head: Yes normal to inspection and Yes atraumatic Ears: hearing grossly normal bilaterally and external ears normal General nose exam: Normal external nose present, no nasal discharge noted and no epistaxis Face and sinus: Yes normal facial exam, No abrasion and No laceration Mouth: Normal oral and palatal mucosa present, no drooling and no muffled voice Eyes General: appearance normal, both eyes and all related structures Periorbital: periorbital findings normal Eyelids: Yes eyelids normal Conjunctivae: conjunctivae normal Pupils: Equal, round and reactive pupils present EOM: EOMs intact bilaterally Neck Neck: Yes normal visual inspection, Yes full ROM and Yes no lymphadenopathy Chest Chest palpation & inspection: normal inspection of the chest Resp Effort & Inspection: normal respiratory effort and able to speak in complete sentences Auscultation: clear to auscultation bilaterally Cardio Rate: regular rate Rhythm: regular rhythm GI Inspection: Yes normal to inspection Neuro General: patient oriented x3 and moves all extremities Cranial nerves: Yes Equal, round and reactive pupils present Cognition (Neuro): normal cognition Motor exam (neuro): 5/5 motor strength present throughout Sensory Exam: Normal double simultaneous stimulation for sensation Coordination: [id number] test normal Extrem General: Yes normal to inspection, Yes full ROM and Yes capillary refill normal Psych Appearance: grossly normal Mental Status: mental status grossly normal Affect: normal affect Attitude: cooperative Thought process: Normal thought process present Thought content: Normal thought content present Insight: Good insight present (Psych) Medical Decision Making MDM Narrative Medical decision making narrative: Patient is a 71 year old male presenting to the emergency department today after a witnessed seizure. Patient's physical exam was unremarkable. Patient's blood work was unremarkable. Patient's EKG was unremarkable. Patient's head CT showed no acute process. I explained my physical exam findings as well as all test results to the patient. I answered all questions asked by the patient. I stressed the importance of the patient taking his medication as prescribed. I stressed the importance of the patient following up with his primary care provider and his neurologist. I stressed the importance of the patient returning to the emergency department immediately if his symptoms were to worsen or if he were to develop any dizziness, shortness of breath, difficulty breathing, chest pain, blurry vision, loss of vision, nausea, vomiting, abdominal pain, fever, chills, back pain, or any other complaints. Patient verbalized agreement and understanding with this treatment plan and discharge. Medical Records Medical records reviewed: Yes I reviewed the patient's medical records. Lab Data Lab results reviewed: Yes I reviewed the patient's lab results. Result diagrams: 06/25/22 14:27 06/25/22 14:27 Labs: Lab Results 06/25/22 06/25/22 06/25/22 Range/Units 14:27 14:27 14:44 WBC 8.1 (4.8-10.8) X10*3/uL RBC 3.74 L (4.60-5.80) X10*6/uL Hgb 12.7 L (14.0-18.0) g/dl Hct 38.5 L (42.0-52.0) % MCV 102.9 H (80.0-98.0) fL MCH 34.0 H (27.0-33.0) pg MCHC 33.0 (31.0-36.0) g/dl RDW 13.6 (11.0-16.0) % Plt Count 204 (160-400) X10*3/uL MPV 10.0 (9.4-12.4) fL Immature Gran % (Auto) 0.4 (0.0-0.4) % Neut % (Auto) 64.6 (45-73) % Lymph % (Auto) 26.3 (20-40) % [place] % (Auto) 7.3 (2-11) % Eos % (Auto) 0.7 (0-4) % Baso % (Auto) 0.7 (0-2) % Lymph # (Auto) 2.1 (1.2-4.9) X10*3/uL [place] # (Auto) 0.6 (0.1-1.2) X10*3/uL Eos # (Auto) 0.1 (0.0-0.4) X10*3/uL Baso # (Auto) 0.1 (0.0-0.2) X10*3/uL Abs Immat Gran (auto) 0.03 (0.00-0.03) X10*3/uL Absolute Neuts (auto) 5.2 (2.0-8.3) x10*3/uL Absolute Nucleated RBC 0.000 (0.0-0.012) X10*3/uL Nucleated RBC % (auto) 0.0 (0.0-0.2) /100WBC Sodium 143 (135-145) mmol/L Potassium 4.2 (3.3-5.1) mmol/L Chloride 109 H (96-108) mmol/L Carbon Dioxide 27 (22-29) mmol/L Anion Gap 11 L (12-20) BUN 42 H (9-16) mg/dL Creatinine 1.27 (0.5-1.4) mg/dL Estim Creat Clear Calc 66.5 Estimated GFR 56 Random Glucose 113 (60-115) mg/dL Calcium 9.1 (8.4-10.2) mg/dL Magnesium 2.0 (1.6-2.6) mg/dL Total Bilirubin 0.9 (0.0-1.0) mg/dL AST 19 (5-37) U/L ALT 24 (0-40) U/L Alkaline Phosphatase 120 H (39-117) U/L Total Protein 6.6 (6.5-8.0) g/dL Albumin 3.5 (3.5-5.0) g/dL Urine Color Yellow Urine Appearance Clear Urine pH 6.0 (5.0-9.0) Ur Specific [place] 1.015 (1.005-1.025) Urine Protein Negative (Neg-Trace) mg/dL Urine Glucose (UA) Negative (Negative) mg/dL Urine Ketones Negative (Negative) mg/dL Urine Blood Negative (Negative) Urine Nitrite Negative (Negative) Ur Leukocyte Esterase Small (1+) H (Negative) Urine RBC 0-2 (0-2) /HPF Urine WBC 0-5 (0-5) /HPF Ur Squamous Epith Cells 0-2 (0-2) /HPF Urine Bacteria None Seen (None Seen) Hyaline Casts 0-2 (0-2) /LPF Imaging Data CT scan - head: Attestation: I personally reviewed and interpreted this imaging study as follows: My impression: No acute process. Radiologist's impression: EXAMINATION: CT HEAD WITHOUT CONTRAST CLINICAL INFORMATION: Seizure.? COMPARISON: Head CT's dating between April 27, 2022 and June 03, 2020. TECHNIQUE: Contiguous axial imaging was performed from the skull base to vertex without intravenous administration of contrast. This CT examination was performed using dose optimization techniques as appropriate, variously including the following: *Automated exposure control *Adjustment of mA and/or kV according to patient size (this includes techniques or standardized protocols for targeted exams where dose is matched to indication/reason for exam; i.e. extremities or head) *Use of iterative reconstruction technique DLP: 841 mGy-cm FINDINGS: No intracranial hemorrhage, large infarction, or mass lesion is seen. Chronic, extensive, bilateral periventricular white matter ischemic changes, similar compared with April 27, 2022. No extra-axial collection is appreciated. The ventricles are normal in size and configuration without evidence of hydrocephalus. The visualized paranasal sinuses and mastoid air cells are clear. Right cher bullosa. Deviation of the nasal septum toward the left. CT/CT head/brain wo IV con IMPRESSION: ? No acute intracranial finding. Dictated By: Giles Flowers Signed By: Electronically signed by Giles?Kristie 06/25/22 1429 ECG Data Attestation: I personally reviewed and interpreted this ECG as follows: Prior ECG tracings: available for review Interpretation: Vent. Rate: 074 BPM ? ? Atrial Rate: 074 BPM P-R Int: 156 ms? QRS Dur: 100 ms QT Int: 406 ms ? ? ? P-R-T Axes: 024 -69 024 degrees QTc Int: 450 ms ? Normal sinus rhythm Left anterior fascicular block Abnormal ECG When compared with ECG of 27-APR-2022 17:45, No significant change was found DD/ 1306 Discharge Plan Discharge Clinical Impression: Seizure Patient Disposition: Home, Self-Care Instructions: Recurrent Seizures in Adults (ED) Additional Instructions: Follow up with your primary care provider and your neurologist. Return to the emergency department immediately if your symptoms worsen or if you develop any dizziness, shortness of breath, difficulty breathing, chest pain, blurry vision, loss of vision, nausea, vomiting, abdominal pain, fever, chills, back pain, or any other complaints. Prescriptions: No Action prednisone 2.5 mg tablet 2.5 mg PO BID 30 Days Qty: 60 5RF cholecalciferol (vitamin D3) 50 mcg (2,000 unit) capsule 1 cap PO DAILY magnesium 200 mg Tablet 250 mg PO BID atorvastatin 40 mg tablet 1 tab PO BEDTIME tamsulosin 0.4 mg capsule 1 cap PO BID [id number]-[id number] [Fioricet] 50-300-40 mg capsule 1 cap PO TID PRN (Reason: pain) Qty: 7 0RF Rx Instructions: with no more than 2 days per week dexamethasone 6 mg tablet 6 mg PO DAILY 3 Days Qty: 3 0RF lidocaine [Aspercreme (lidocaine)] 4 % adhesive patch,medicated 1 patch topical DAILY PRN (Reason: pain) Qty: 10 0RF tramadol 50 mg tablet 50 mg PO Q6H PRN (Reason: pain) Qty: 20 0RF levetiracetam [Keppra] 500 mg tablet 1,000 mg PO BID topiramate 25 mg tablet 50 mg PO BID abiraterone 250 mg tablet 500 mg PO BEDTIME Rx Instructions: must be taken on empty stomach, at least 1 hr before or 2 hrs after a meal/food aspirin 81 mg Tablet,Delayed Release (Dr/Ec) 81 mg PO DAILY lidocaine [Lidoderm] 5 % adhesive patch,medicated 1 patch topical DAILY MDD remove after 12 hours PRN (Reason: pain) Qty: 30 0RF Rx Instructions: leave on most painful area for up to 12 hrs naproxen 500 mg tablet 500 mg PO BID PRN (Reason: pain) 10 Days Qty: 20 0RF cyclobenzaprine 5 mg tablet 5 mg PO Q8H PRN (Reason: pain (scale score 7-10)) 5 Days Qty: 14 0RF levofloxacin 750 mg tablet 750 mg PO DAILY 5 Days Qty: 5 0RF metoclopramide HCl [Reglan] 10 mg tablet 10 mg PO Q6H PRN (Reason: headaches,nausea, vomiting) Qty: 14 0RF riboflavin (vitamin B2) 100 mg tablet 200 mg PO BID lidocaine HCl 2 % jelly in applicator 10 ml intra-urethral ONCE Qty: 10 0RF Referrals: [facility] [place] Family Medicine [Provider Group] (Call to establish and follow up with a primary care provider. If you already have a primary care provider, please follow up with them. ) [facility] [place] Primary Care, Fer [Provider Group] (Call to establish and follow up with a primary care provider. If you already have a primary care provider, please follow up with them. ) [facility] [place] Primary Care,Rachel [Provider Group] (Call to establish and follow up with a primary care provider. If you already have a primary care provider, please follow up with them. ) [facility] [place] Neuro/Sleep [Provider Group] Print Language: Grenadian
[2022-06-25 12:57] VITALS: BP 126/79; PULSE 69; RESP 19; TEMP 36.6; O2SAT 98; BMI 29.2
--- NOTE | 2022-06-25 12:57 | ECG_ITS ---
Test Reason : SEIZURE Blood Pressure : / mmHG Vent. Rate : 074 BPM Atrial Rate : 074 BPM P-R Int : 156 ms QRS Dur : 100 ms QT Int : 406 ms P-R-T Axes : 024 -69 024 degrees QTc Int : 450 ms Normal sinus rhythm Left anterior fascicular block Abnormal ECG When compared with ECG of 27-APR-2022 17:45, No significant change was found Referred By: Jahaira Jarvis Electronically Signed By:MARISA ACUÑA
[2022-06-25 14:16] VITALS: BP 134/71; PULSE 68; RESP 18; O2SAT 98
[2022-06-25 14:35] LABS: Basophils Absolute Auto 0.1 X10*3/uL (0.0-0.2); Basophils Percent Auto 0.7 % (0-2); Eosinophils Absolute Auto 0.1 X10*3/uL (0.0-0.4); Eosinophils Percent Auto 0.7 % (0-4); Hematocrit 38.5 % (42.0-52.0); Hemoglobin 12.7 g/dl (14.0-18.0); Imm Gran Abs Auto 0.03 X10*3/uL (0.00-0.03); Imm Gran Pct Auto 0.4 % (0.0-0.4); Lymphocytes Absolute Auto 2.1 X10*3/uL (1.2-4.9); Lymphocytes Percent Auto 26.3 % (20-40); MANUAL DIFF FLAG NO; Mean Corpuscular Volume 102.9 fL (80.0-98.0); Monocytes Absolute Auto 0.6 X10*3/uL (0.1-1.2); Monocytes Percent Auto 7.3 % (2-11); Neutrophils Absolute Auto 5.2 x10*3/uL (2.0-8.3); Neutrophils Percent Auto 64.6 % (45-73); Platelet Count 204 X10*3/uL (160-400); Red Blood Count 3.74 X10*6/uL (4.60-5.80); Red Cell Distribution Width 13.6 % (11.0-16.0); White Blood Count 8.1 X10*3/uL (4.8-10.8)
[2022-06-25 14:49] LABS: Alanine Aminotransferase 24 U/L (0-40); Albumin Level 3.5 g/dL (3.5-5.0); Alkaline Phosphatase 120 U/L (39-117); Anion Gap 11 (12-20); Aspartate Amino Transferase 19 U/L (5-37); Bilirubin Total 0.9 mg/dL (0.0-1.0); Blood Urea Nitrogen 42 mg/dL (9-16); Calcium 9.1 mg/dL (8.4-10.2); Carbon Dioxide 27 mmol/L (22-29); Chloride 109 mmol/L (96-108); Creatinine Clr Calc Pharmacy 66.5; Estimated Glomerular Filt Rate 56; Glucose Random 113 mg/dL (60-115); Potassium 4.2 mmol/L (3.3-5.1); Sodium 143 mmol/L (135-145); Total Protein 6.6 g/dL (6.5-8.0)
[2022-06-25 14:51] LABS: Appearance Urine Clear; Color Urine Yellow; Glucose Urine UA Negative (Negative); Leukocyte Esterase Urine Small (1+) (Negative); Nitrite Urine Negative (Negative); Specific Gravity - Urine 1.015 (1.005-1.025); Urine Blood Negative (Negative); Urine Ketones Negative (Negative); Urine Protein Negative (Neg-Trace)
[2022-06-25 15:04] LABS: Bacteria Urine None Seen (None Seen); Hyaline Casts Urine 0-2 /LPF (0-2); RBC Urine 0-2 /HPF (0-2); Squamous Epithelial Cell Urine 0-2 /HPF (0-2); UACC Culture Trigger YES; WBC Urine 0-5 /HPF (0-5)
== END 2022-06-25 16:01 | disposition home or self-care (01) ==
PROVIDERS: Physician Assistant Medical; Emergency Provider Emergency Medicine
DX: R56.9 Unspecified convulsions (principal); Z79.899 Other long term (current) drug therapy
CPT/HCPCS: 36415; 70450; 80053; 81001; 83735; 85025; 87086; 93005; 99284

== ENCOUNTER → 2022-06-29 10:55 | Outpatient (BNVA) | payer OTHER, SELFPAY | PROVIDERS: Visit Provider Urology | DX: C61 Malignant neoplasm of prostate (principal); C79.51 Secondary malignant neoplasm of bone | CPT/HCPCS: Q3014 ==

== ENCOUNTER 2022-07-15 16:31 | Emergency (ER) | payer OTHER, SELFPAY ==
--- NOTE | ~2022-07-15 | XR_ITS ---
EXAMINATION: XR CHEST CLINICAL INFORMATION: Seizure COMPARISON: Chest radiograph 03/16/2022 TECHNIQUE: Frontal view of the chest was obtained. FINDINGS: Lung volumes are slightly diminished. There is no significant abnormality noted involving the heart, lungs, mediastinum, bony thorax or soft tissues. XR/XR chest 1V IMPRESSION: Unremarkable examination.
--- NOTE | ~2022-07-15 | CT_ITS ---
EXAMINATION: CT HEAD WITHOUT CONTRAST CLINICAL INFORMATION: Seizure COMPARISON: Prior CTs of the head, most recently 06/25/2022 TECHNIQUE: Contiguous axial imaging was performed from the skull base to vertex without intravenous administration of contrast. This CT examination was performed using dose optimization techniques as appropriate, variously including the following: *Automated exposure control *Adjustment of mA and/or kV according to patient size (this includes techniques or standardized protocols for targeted exams where dose is matched to indication/reason for exam; i.e. extremities or head) *Use of iterative reconstruction technique DLP: 782 mGy-cm FINDINGS: No acute intracranial hemorrhage, mass effect, midline shift, extended findings of an acute territorial infarction. There is redemonstration of relatively extensive patchy and confluent white matter hypoattenuation which is overall similar to the prior. Ventricles and cortical sulci are unchanged and appropriate for age. Calvarium is intact. Mastoid air cells are clear. Visualized paranasal sinuses are clear. The orbits and their contents are clear. CT/CT head/brain wo IV con IMPRESSION: No acute intracranial pathology. Stable relatively extensive white matter changes.
--- NOTE | 2022-07-15 16:38 | ECG_ITS ---
Test Reason : SIEZURE Blood Pressure : / mmHG Vent. Rate : 065 BPM Atrial Rate : 065 BPM P-R Int : 154 ms QRS Dur : 100 ms QT Int : 436 ms P-R-T Axes : 000 -53 004 degrees QTc Int : 453 ms Poor data quality, interpretation may be adversely affected Normal sinus rhythm Left axis deviation Possible Anterior infarct , age undetermined Abnormal ECG When compared with ECG of 25-JUN-2022 13:06, No significant change was found Referred By: Jahaira Jarvis Electronically Signed By:MARISA ACUÑA
--- NOTE | 2022-07-15 16:38 | ED_ITS ---
HPI - General Adult General Chief complaint: Seizure Stated complaint: Seziure hx 10 min seizures. Got nasal versed. VSS Time Seen by Provider: 07/15/22 16:37 Source: patient and EMS Mode of arrival: EMS Limitations: no limitations History of Present Illness HPI narrative: Patient is a 71 year old male presenting to the emergency department today after a seizure. Patient states that he has a history of a seizure disorder for which he follows with Dr. Roth. Patient states that 2 months ago he had his Keppra increased, last month he had a breakthrough seizure on the increased dose, and then today he had another breakthrough seizure. Patient states that he has not seen Dr. Roth since the last time he was seen here for this. Patient states that he has not had another seizure since the last time he was seen for this either. Patient denies any dizziness, lightheadedness, abdominal pain, nausea, vomiting, fever, chills, blurry vision, double vision, loss of vision, chest pain, difficulty breathing, shortness of breath, back pain, night sweats, pain with urination, increased urinary frequency, increased urinary urgency, blood in his urine or stool, syncope or a near syncopal episode, recent trauma or falls, bowel incontinence, bladder incontinence, bowel retention, bladder retention, or any other complaints at this time. Severity: mild Relieving factors: none Exacerbating factors: none Associated symptoms: seizure Treatments prior to arrival: none Related Data Home Medications Medication Instructions Recorded Confirmed atorvastatin 40 mg tablet 1 tab PO BEDTIME 07/19/20 07/11/22 cholecalciferol (vitamin D3) 50 1 cap PO DAILY 12/07/20 07/11/22 mcg (2,000 unit) capsule riboflavin (vitamin B2) 100 mg 200 mg PO BID 01/05/21 07/11/22 tablet magnesium 200 mg tablet 250 mg PO BID 05/14/21 07/11/22 tamsulosin 0.4 mg capsule 1 cap PO BID 07/10/21 07/11/22 levetiracetam 500 mg tablet 1,000 mg PO BID 05/17/22 07/11/22 (Keppra) topiramate 25 mg tablet 50 mg PO BID 05/17/22 07/11/22 amlodipine 2.5 mg tablet 2.5 mg PO DAILY 09/15/22 09/27/22 Previous Rx's Medication Instructions Recorded metoclopramide HCl 10 mg tablet 10 mg PO Q6H PRN headaches,nausea, 10/10/21 (Reglan) vomiting #14 tabs auudgiijcj-ydizidadzstuo-ikiyafnf 1 cap PO TID PRN pain #7 caps 11/07/21 50 mg-300 mg-40 mg capsule (Fioricet) lidocaine 4 % topical patch 1 patch topical DAILY PRN pain #10 01/21/22 (Aspercreme (lidocaine)) ea tramadol 50 mg tablet 50 mg PO Q6H PRN pain #20 tabs 01/21/22 cyclobenzaprine 5 mg tablet 5 mg PO Q8H PRN pain (scale score 05/24/22 7-10) 5 days #14 tabs lidocaine 5 % topical patch 1 patch topical DAILY PRN pain #30 05/24/22 (Lidoderm) ea naproxen 500 mg tablet 500 mg PO BID PRN pain 10 days #20 05/24/22 tabs prednisone 2.5 mg tablet 2.5 mg PO BID 30 days #60 tabs 06/13/22 abiraterone 250 mg tablet 500 mg PO BEDTIME 90 days #180 tabs 07/07/22 Allergies Allergy/AdvReac Type Severity Reaction Status Date / Time oxycodone [Percocet] AdvReac Intermediate face got Verified 07/11/22 13:17 really red Review of Systems Constitutional: Constitutional: Reports no additional constitutional complaints, Denies chills, Denies fever(s) and Denies night sweats Eyes: Eyes: Reports no additional eye complaints, Denies blurry vision, Denies change in vision, Denies diplopia, Denies eye discharge, Denies loss of vision and Denies eye pain ENT: Denies dizziness Cardiovascular: Cardiovascular: Reports no additional cardiovascular complaints, Denies chest pain, Denies lightheadedness, Denies Loss of Consciousness and Denies dyspnea Respiratory: Respiratory: Reports no additional respiratory complaints and Denies dyspnea Gastrointestinal: Gastrointestinal: Reports no additional gastrointestinal complaints, Denies abdominal pain, Denies melena, Denies hematochezia, Denies change in bowel habits and Denies change in stool character Genitourinary: Genitourinary: Reports no additional male genitourinary complaints, Denies hematuria, Denies oliguria, Denies difficulty urinating, Denies dysuria, Denies urinary frequency, Denies urinary hesitancy, Denies urinary incontinence and Denies urinary urgency Musculoskeletal: Musculoskeletal: Reports no additional musculoskeletal complaints, Denies numbness and Denies tingling Neurologic: Denies dizziness, Denies loss of vision, Denies numbness, Reports seizure-like activity and Denies tingling Psychiatric: Psychiatric: Reports no additional psychiatric complaints Endocrine: Endocrine: Reports no additional endocrine complaints Hematologic/Lymphatic: Hematologic/Lymphatic: Reports no additional hematologic/lymphatic complaints Allergic/Immunologic: Allergic/Immunologic: Reports no additional allergic/immunologic complaints PMFSH Past Medical History Attestation statement: The following information was validated with the patient. 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 Elevated cholesterol Hematuria HTN (hypertension) Prostate CA Tremor Surgical History H/O prostate biopsy History of cystoscopy Hx of colonoscopy Social History Social History Household Members: Spouse Housing: House Are you a primary tire care manager to a significant other at home: No Do you presently have visiting nurse or other home services: No Alcohol intake: never Patient Tobacco Use Status: Never used Tobacco Second Hand Smoke Exposure: No Use of substances other than those prescribed or required for medical reasons: No Advance Directives: Yes Advance Directives on File: Yes Advance Directives Date on File: 05/22/22 service: No Current occupational status: retired Physical Exam ED Vital Signs: Vital Signs - 24 hr 07/15/22 16:45 07/15/22 18:03 07/15/22 19:19 Temperature 98.0 F 98.2 F 97.8 F Pulse Rate 65 61 61 Respiratory Rate 16 18 16 Blood Pressure 137/68 121/83 136/92 H Pulse Oximetry 98 98 98 Oxygen Delivery Method Room Air Room Air Room Air BMI result Body Mass Index 31.8 Const General: cooperative, no acute distress, alert and awake Nutritional Appearance: well nourished Orientation/consciousness: patient oriented x3 Limitations: no limitations HENMT Head: Yes normal to inspection and Yes atraumatic Ears: hearing grossly normal bilaterally and external ears normal General nose exam: Normal external nose present, no nasal discharge noted and no epistaxis Face and sinus: Yes normal facial exam, No abrasion and No laceration Mouth: Normal oral and palatal mucosa present, no drooling and no muffled voice Eyes General: appearance normal, both eyes and all related structures Periorbital: periorbital findings normal Eyelids: Yes eyelids normal Conjunctivae: conjunctivae normal Pupils: Equal, round and reactive pupils present EOM: EOMs intact bilaterally Neck Neck: Yes normal visual inspection, Yes full ROM and Yes no lymphadenopathy Chest Chest palpation & inspection: normal inspection of the chest Resp Effort & Inspection: normal respiratory effort and able to speak in complete sentences Auscultation: clear to auscultation bilaterally Cardio Rate: regular rate Rhythm: regular rhythm GI Inspection: Yes normal to inspection Neuro General: patient oriented x3 and moves all extremities Cranial nerves: Yes Equal, round and reactive pupils present Cognition (Neuro): normal cognition Motor exam (neuro): 5/5 motor strength present throughout Sensory Exam: Normal double simultaneous stimulation for sensation Coordination: axsthi-bk-wqef test normal Extrem General: Yes normal to inspection, Yes full ROM and Yes capillary refill normal Psych Appearance: grossly normal Mental Status: mental status grossly normal Affect: normal affect Attitude: cooperative Thought process: Normal thought process present Thought content: Normal thought content present Insight: Good insight present (Psych) Medical Decision Making MDM Narrative Medical decision making narrative: Patient is a 71 year old male presenting to the emergency department today after a witnessed seizure. Patient's physical exam was unremarkable. Patient's blood work was unremarkable. Patient's EKG was unremarkable. Patient's head CT and chest x-ray showed no acute process. I explained my physical exam findings as well as all test results to the patient. I answered all questions asked by the patient. I stressed the importance of the patient taking his medication as prescribed. I stressed the importance of the patient following up with his primary care provider and his neurologist. I stressed the importance of the patient returning to the emergency department immediately if his symptoms were to worsen or if he were to develop any dizziness, shortness of breath, difficulty breathing, chest pain, blurry vision, loss of vision, nausea, vomiting, abdominal pain, fever, chills, back pain, or any other complaints. Patient verbalized agreement and understanding with this treatment plan and discharge. Medical Records Medical records reviewed: Yes I reviewed the patient's medical records. Lab Data Lab results reviewed: Yes I reviewed the patient's lab results. Result diagrams: 07/15/22 17:38 07/15/22 17:38 Labs: Lab Results 07/15/22 07/15/22 07/15/22 Range/Units 17:38 17:38 17:38 WBC 8.4 (4.8-10.8) X10*3/uL RBC 3.84 L (4.60-5.80) X10*6/uL Hgb 13.2 L (14.0-18.0) g/dl Hct 39.1 L (42.0-52.0) % MCV 101.8 H (80.0-98.0) fL MCH 34.4 H (27.0-33.0) pg MCHC 33.8 (31.0-36.0) g/dl RDW 13.1 (11.0-16.0) % Plt Count 228 (160-400) X10*3/uL MPV 10.6 (9.4-12.4) fL Immature Gran % (Auto) 0.4 (0.0-0.4) % Neut % (Auto) 62.3 (45-73) % Lymph % (Auto) 27.4 (20-40) % O'Brien % (Auto) 7.6 (2-11) % Eos % (Auto) 1.5 (0-4) % Baso % (Auto) 0.8 (0-2) % Lymph # (Auto) 2.3 (1.2-4.9) X10*3/uL O'Brien # (Auto) 0.6 (0.1-1.2) X10*3/uL Eos # (Auto) 0.1 (0.0-0.4) X10*3/uL Baso # (Auto) 0.1 (0.0-0.2) X10*3/uL Abs Immat Gran (auto) 0.03 (0.00-0.03) X10*3/uL Absolute Neuts (auto) 5.2 (2.0-8.3) x10*3/uL Absolute Nucleated RBC 0.000 (0.0-0.012) X10*3/uL Nucleated RBC % (auto) 0.0 (0.0-0.2) /100WBC Sodium 145 (135-145) mmol/L Potassium 4.6 (3.3-5.1) mmol/L Chloride 113 H (96-108) mmol/L Carbon Dioxide 21 L (22-29) mmol/L Anion Gap 16 (12-20) BUN 37 H (9-16) mg/dL Creatinine 1.23 (0.5-1.4) mg/dL Estim Creat Clear Calc 69.4 Estimated GFR 58 Random Glucose 101 (60-115) mg/dL Calcium 9.4 (8.4-10.2) mg/dL Magnesium 2.2 (1.6-2.6) mg/dL Total Bilirubin 1.0 (0.0-1.0) mg/dL AST 22 (5-37) U/L ALT 25 (0-40) U/L Alkaline Phosphatase 116 (39-117) U/L Total Protein 6.8 (6.5-8.0) g/dL Albumin 3.7 (3.5-5.0) g/dL Urine Color Yellow Urine Appearance Clear Urine pH 7.5 (5.0-9.0) Ur Specific [place] 1.015 (1.005-1.025) Urine Protein Negative (Neg-Trace) mg/dL Urine Glucose (UA) Negative (Negative) mg/dL Urine Ketones Negative (Negative) mg/dL Urine Blood Negative (Negative) Urine Nitrite Negative (Negative) Ur Leukocyte Esterase Trace H (Negative) Urine RBC 0-2 (0-2) /HPF Urine WBC 0-5 (0-5) /HPF Ur Squamous Epith Cells 0-2 (0-2) /HPF Urine Bacteria None Seen (None Seen) Hyaline Casts 0-2 (0-2) /LPF Imaging Data Chest x-ray: Attestation: I personally reviewed and interpreted this imaging study as follows: My impression: No acute process. Radiologist's impression: EXAMINATION: XR CHEST CLINICAL INFORMATION: Seizure COMPARISON: Chest radiograph 03/16/2022 TECHNIQUE: Frontal view of the chest was obtained. FINDINGS: Lung volumes are slightly diminished. There is no significant abnormality noted involving the heart, lungs, mediastinum, bony thorax or soft tissues. XR/XR chest 1V IMPRESSION: Unremarkable examination. Dictated By: Tulio Sanchez MD Signed By: Electronically signed by Tulio Sanchez MD 07/15/[address] scan - head: Attestation: I personally reviewed and interpreted this imaging study as follows: My impression: No acute process. Radiologist's impression: EXAMINATION: CT HEAD WITHOUT CONTRAST CLINICAL INFORMATION: Seizure? COMPARISON: Prior CTs of the head, most recently 06/25/2022 TECHNIQUE: Contiguous axial imaging was performed from the skull base to vertex without intravenous administration of contrast. This CT examination was performed using dose optimization techniques as appropriate, variously including the following: *Automated exposure control *Adjustment of mA and/or kV according to patient size (this includes techniques or standardized protocols for targeted exams where dose is matched to indication/reason for exam; i.e. extremities or head) *Use of iterative reconstruction technique DLP: 782 mGy-cm FINDINGS: No acute intracranial hemorrhage, mass effect, midline shift, extended findings of an acute territorial infarction. There is redemonstration of relatively extensive patchy and confluent white matter hypoattenuation which is overall similar to the prior. Ventricles and cortical sulci are unchanged and appropriate for age. Calvarium is intact. Mastoid air cells are clear. Visualized paranasal sinuses are clear. The orbits and their contents are clear. CT/CT head/brain wo IV con IMPRESSION: No acute intracranial pathology. Stable relatively extensive white matter changes. Dictated By: Tulio Sanchez MD Signed By: Electronically signed by Tulio Sanchez MD 07/15/22 6569 ECG Data Attestation: I personally reviewed and interpreted this ECG as follows: Prior ECG tracings: available for review Interpretation: Vent. Rate: 065 BPM ? ? Atrial Rate: 065 BPM P-R Int: 154 ms? QRS Dur: 100 ms QT Int: 436 ms ? ? ? P-R-T Axes: 000 -53 004 degrees QTc Int: 453 ms ? Normal sinus rhythm Left axis deviation Possible Anterior infarct , age undetermined Abnormal ECG When compared with ECG of 25-JUN-2022 13:06, No significant change was found DD/ 1713 Discharge Plan Discharge Clinical Impression: Seizure disorder Patient Disposition: Home, Self-Care Instructions: Recurrent Seizures in Adults (ED) Additional Instructions: Follow up with your primary care provider and your neurologist. Return to the emergency department immediately if your symptoms worsen or if you develop any dizziness, shortness of breath, difficulty breathing, chest pain, blurry vision, loss of vision, nausea, vomiting, abdominal pain, fever, chills, back pain, or any other complaints. Prescriptions: No Action prednisone 2.5 mg tablet 2.5 mg PO BID 30 Days Qty: 60 5RF abiraterone 250 mg tablet 500 mg PO BEDTIME 90 Days Qty: 180 3RF Rx Instructions: must be taken on empty stomach, at least 1 hr before or 2 hrs after a meal/food cholecalciferol (vitamin D3) 50 mcg (2,000 unit) capsule 1 cap PO DAILY magnesium 200 mg Tablet 250 mg PO BID atorvastatin 40 mg tablet 1 tab PO BEDTIME tamsulosin 0.4 mg capsule 1 cap PO BID vuakzogujm-nefmzqnfugnjm-fjrr [Fioricet] 50-300-40 mg capsule 1 cap PO TID PRN (Reason: pain) Qty: 7 0RF Rx Instructions: with no more than 2 days per week lidocaine [Aspercreme (lidocaine)] 4 % adhesive patch,medicated 1 patch topical DAILY PRN (Reason: pain) Qty: 10 0RF tramadol 50 mg tablet 50 mg PO Q6H PRN (Reason: pain) Qty: 20 0RF levetiracetam [Keppra] 500 mg tablet 1,000 mg PO BID topiramate 25 mg tablet 50 mg PO BID lidocaine [Lidoderm] 5 % adhesive patch,medicated 1 patch topical DAILY MDD remove after 12 hours PRN (Reason: pain) Qty: 30 0RF Rx Instructions: leave on most painful area for up to 12 hrs naproxen 500 mg tablet 500 mg PO BID PRN (Reason: pain) 10 Days Qty: 20 0RF cyclobenzaprine 5 mg tablet 5 mg PO Q8H PRN (Reason: pain (scale score 7-10)) 5 Days Qty: 14 0RF metoclopramide HCl [Reglan] 10 mg tablet 10 mg PO Q6H PRN (Reason: headaches,nausea, vomiting) Qty: 14 0RF riboflavin (vitamin B2) 100 mg tablet 200 mg PO BID lidocaine HCl 2 % jelly in applicator 10 ml intra-urethral ONCE Qty: 10 0RF amlodipine 2.5 mg tablet 2.5 mg PO DAILY Referrals: Eric Dinh MD [Primary Care Provider] - GonzalezGilda manuel MD [Physician] - Interventions: ED Discharge Assessment Last Done: 07/15/22 20:25 Discharge Date/Time: 07/15/22 20:26 Print Language: Guinean
[2022-07-15 16:45] VITALS: BP 137/68; BP 150/77; PULSE 65; PULSE 75; RESP 16; TEMP 36.7; O2SAT 96; O2SAT 98; BMI 31.8
--- OUTSIDE RECORDS SUMMARY | 2022-07-15 17:40 | XMS_ITS ---
:1950 Author Care Team Providers Name Role Phone JAMAL DELGADILLO 1ST FLOOR OTHER [phone] SVETLANA WOODRUFF MD Primary Care Provider [phone] Allergies Code Code System Name Reaction Severity Status Onset 7804 RxNorm Oxycodone ? ? Active ? Medications Notes: Medications reviewed, see DEC f or up to date list Problems Name Status Onset Date Source ? Malignant Tumor of Prostate Active 05/16/2021 ? Hyperlipidemia Active 05/16/2021 ? Essential Hypertension Active 05/16/2021 ? Fall Active 05/16/2021 ? 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 Procedures Notes: prostate bx, cystoscopy Results Lab Results None recorded. 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 05/16/2021 Malignant Tumor of Prostate; Hyperlipide rashawn; Essential Hypertension; Fall Shanell Brown BENEFIT SPECIALIST: [address] [place] [address], Ph. Social History Tobacco Smoking Status Never Smoker Vaccine List Vaccine Type COVID-19, mRNA, LNP-S, PF, 100 mcg/0.5 m L dose (Moderna) 03/05/2021 04/02/2021 influenza, high-dose, quadrivalent 08/07/2020 07/27/2021 pneumococcal conjugate PCV 13 11/11/2018 Td(adult) unspecified formulation 07/29/2013 zoster live 02/08/2017 Plan of Care Reminders Provider Appointments None recorded. ? ? Lab None recorded. ? ? Referral None recorded. ? ? Procedures None recorded. ? ? Surgeries None recorded. ? ? Imaging None recorded. ? ? Vitals 05/25/2021 11:27AM Discharge Summary Height Blood Pressure 6 ft 118/69 mm[Hg] 05/23/2021 01:32PM Acute Rounding Visit Height Blood Pressure 6 ft 106/72 mm[Hg] 05/19/2021 12:01PM Admitting H&P Height Weight BMI Blood Pressure 6 ft 209.5 lbs 28.4 kg/m2 110/71 mm[Hg] 05/16/2021 10:34AM Initial Intake Note Blood Pressure 112/57 mm[Hg]
[2022-07-15 17:44] LABS: MANUAL DIFF FLAG NO
[2022-07-15 17:51] LABS: Appearance Urine Clear; Basophils Absolute Auto 0.1 X10*3/uL (0.0-0.2); Basophils Percent Auto 0.8 % (0-2); Color Urine Yellow; Eosinophils Absolute Auto 0.1 X10*3/uL (0.0-0.4); Eosinophils Percent Auto 1.5 % (0-4); Glucose Urine UA Negative (Negative); Hematocrit 39.1 % (42.0-52.0); Hemoglobin 13.2 g/dl (14.0-18.0); Imm Gran Abs Auto 0.03 X10*3/uL (0.00-0.03); Imm Gran Pct Auto 0.4 % (0.0-0.4); Leukocyte Esterase Urine Trace (Negative); Lymphocytes Absolute Auto 2.3 X10*3/uL (1.2-4.9); Lymphocytes Percent Auto 27.4 % (20-40); Mean Corpuscular HGB Conc 33.8 g/dl (31.0-36.0); Mean Corpuscular Hemoglobin 34.4 pg (27.0-33.0); Mean Corpuscular Volume 101.8 fL (80.0-98.0); Mean Platelet Volume 10.6 fL (9.4-12.4); Monocytes Absolute Auto 0.6 X10*3/uL (0.1-1.2); Monocytes Percent Auto 7.6 % (2-11); Neutrophils Absolute Auto 5.2 x10*3/uL (2.0-8.3); Neutrophils Percent Auto 62.3 % (45-73); Nitrite Urine Negative (Negative); PH 7.5 (5.0-9.0); Platelet Count 228 X10*3/uL (160-400); Red Blood Count 3.84 X10*6/uL (4.60-5.80); Red Cell Distribution Width 13.1 % (11.0-16.0); Specific Gravity - Urine 1.015 (1.005-1.025); UMIC TRIGGER UACC YES; Urine Blood Negative (Negative); Urine Ketones Negative (Negative); Urine Protein Negative (Neg-Trace); White Blood Count 8.4 X10*3/uL (4.8-10.8)
[2022-07-15 17:54] LABS: Bacteria Urine None Seen (None Seen); Hyaline Casts Urine 0-2 /LPF (0-2); RBC Urine 0-2 /HPF (0-2); Squamous Epithelial Cell Urine 0-2 /HPF (0-2); WBC Urine 0-5 /HPF (0-5)
[2022-07-15 18:02] LABS: Alanine Aminotransferase 25 U/L (0-40); Albumin Level 3.7 g/dL (3.5-5.0); Alkaline Phosphatase 116 U/L (39-117); Anion Gap 16 (12-20); Aspartate Amino Transferase 22 U/L (5-37); Blood Urea Nitrogen 37 mg/dL (9-16); Calcium 9.4 mg/dL (8.4-10.2); Carbon Dioxide 21 mmol/L (22-29); Chloride 113 mmol/L (96-108); Creatinine Clr Calc Pharmacy 69.4; Estimated Glomerular Filt Rate 58; Glucose Random 101 mg/dL (60-115); Magnesium 2.2 mg/dL (1.6-2.6); Potassium 4.6 mmol/L (3.3-5.1); Sodium 145 mmol/L (135-145); Total Protein 6.8 g/dL (6.5-8.0)
[2022-07-15 18:03] VITALS: BP 121/83; PULSE 61; RESP 18; TEMP 36.8; O2SAT 98
[2022-07-15 19:19] VITALS: BP 136/92; PULSE 61; RESP 16; TEMP 36.6; O2SAT 98
== END 2022-07-15 20:26 | disposition home or self-care (01) ==
PROVIDERS: Physician Assistant Medical; Emergency Provider Internal Medicine; PCP Family Medicine
DX: G40.909 Epilepsy, unspecified, not intractable, without status epilepticus (principal); I10 Essential (primary) hypertension; E78.5 Hyperlipidemia, unspecified; Z87.440 Personal history of urinary (tract) infections; Z79.02 Long term (current) use of antithrombotics/antiplatelets; Z79.899 Other long term (current) drug therapy
CPT/HCPCS: 36415; 70450; 71045; 80053; 81001; 83735; 85025; 93005; 99284

== ENCOUNTER 2022-08-12 17:51 | Emergency (ER) | payer OTHER, SELFPAY ==
[2022-08-12] VITALS (8 sets, daily range): BP systolic 134–167; BP diastolic 76–89; PULSE 58–74; RESP 12–20; TEMP 36.6–36.9; O2SAT 97–99; BMI 29.4
--- NOTE | ~2022-08-12 | CT_ITS ---
EXAMINATION: CTA OF THE HEAD AND NECK CLINICAL INFORMATION: Dizziness and headaches. COMPARISON: Head CT from 07/15/2022. TECHNIQUE: Test bolus sequences followed by intravenous administration 70 mL of Omnipaque 350. Helical imaging was performed in the axial plane from the mediastinum to the skull vertex. Delayed postcontrast imaging of the head was also performed. The data was processed at the vascular ultrasound technologist's workstation for generation of MIP sequences. Three-dimensional volume rendered reformatted images were also generated at an offline 3-D workstation. Stenoses are assessed in accordance with NASCET criteria unless otherwise indicated. Limited study with motion artifacts. This CT examination was performed using dose optimization techniques as appropriate, variously including the following: *Automated exposure control *Adjustment of mA and/or kV according to patient size (this includes techniques or standardized protocols for targeted exams where dose is matched to indication/reason for exam; i.e. extremities or head) *Use of iterative reconstruction technique DLP: 2619 mGy-cm. FINDINGS: CT head: There is no evidence of acute intracranial hemorrhage or territorial infarction. There is no loss of lujan to white matter differentiation. No abnormal mass effect or midline shift is seen. No extra-axial fluid collections are identified. There is no abnormal enhancement. Extensive chronic white matter microangiopathic changes again noted with diffuse parenchymal volume loss and ex vacuo dilatation of the ventricles. The osseous structures and soft tissues are normal. The mastoid air cells and visualized portions of the paranasal sinuses are well aerated. CTA neck: The imaged aortic arch and origins of the great vessels are normal. The common carotid arteries are widely patent. The carotid bifurcations are patent with minimal atherosclerotic wall calcifications on the left side. The cervical internal carotid arteries are normal. The vertebral arteries opacify normally and are of normal caliber. The soft tissues of the neck are unremarkable. Moderate cervical spondylosis noted. The imaged portions of the lungs are clear. CTA head: The intradural vertebral arteries and basilar artery are normal. The posterior cerebral arteries are widely patent. The internal carotid arteries are of normal caliber. The DYLAN and MCA vascular complexes bilaterally are normal. The venous sinuses opacify normally. CT/CT angio head neck IMPRESSION: Limited study with motion artifacts. Otherwise, relatively normal CT angiogram of the head and neck. No acute territorial infarction or intracranial hemorrhage. Stable diffuse parenchymal volume loss and extensive chronic white matter microangiopathy. Moderate cervical spondylosis. Imaging findings reported to Dr. Sweet at 10:07 PM on 08/12/2022.
--- NOTE | ~2022-08-12 | XR_ITS ---
EXAMINATION: XR chest 1V CLINICAL INFORMATION: Reason for Exam weakness COMPARISON: Chest radiograph 07/15/2022 TECHNIQUE: One view of the chest FINDINGS: Low lung volumes similar to prior. Clear lungs. No pneumothorax or pleural effusion. Normal cardiomediastinal silhouette. XR/XR chest 1V Impression: Low lung volumes similar to prior. Clear lungs.
--- NOTE | 2022-08-12 18:14 | ECG_ITS ---
Test Reason : DIZZINESS Blood Pressure : / mmHG Vent. Rate : 057 BPM Atrial Rate : 057 BPM P-R Int : 166 ms QRS Dur : 118 ms QT Int : 454 ms P-R-T Axes : 007 -55 002 degrees QTc Int : 441 ms Sinus bradycardia Left anterior fascicular block Non-specific intra-ventricular conduction delay Abnormal ECG When compared with ECG of 15-JUL-2022 17:13, No significant change was found Referred By: Brea Sweet Electronically Signed By:DIPAK BROWNLEE MD
[2022-08-12] MEDS: levETIRAcetam 1,000 MG TABLET 2000 MG PO (18:21)
[2022-08-12] MEDS: 0.9 % Sodium Chloride 500 ML IV (18:22)
--- NOTE | 2022-08-12 18:27 | ED.DIZZY ---
HPI - Dizziness General Chief Complaint: Dizziness Stated Complaint: SYNCOPE DIZZY Time Seen by Provider: 08/12/22 18:08 Source: patient Mode of arrival: EMS Limitations: no limitations History of Present Illness HPI Narrative: 71 yo male with hx of seizures on multiple medications, bladder cancer undergoing treatments, recurrent UTI, prostate cancer with bony mets, HLD, HTN, weakness, migraines, prior stroke not on blood thinners reports all day today since early this AM a headache and feeling like the room is spinning it is constant and much worse when he stands. He stood up today and even was so dizzy he had to be lowered to the floor and had a brief LOC - no trauma. He has no CP/SOB, no seizures reporeted, no GIB symptoms. He states he has a headache and feels dizzy right now. Onset over 8 hours ago. MD elicited complaint: dizziness Onset (ago): hour(s) (8+) Timing: gradual onset and constant Severity: moderate Description: room spinning , difficulty walking and other (syncope) Context: change in body position History of similar symptoms: No Exacerbating factors: movement/ambulation, change in body position and standing Relieving factors: remaining still Associated symptoms: syncope Related Data Home Medications Medication Instructions Recorded Confirmed atorvastatin 40 mg tablet 1 tab PO BEDTIME 07/19/20 07/11/22 cholecalciferol (vitamin D3) 50 1 cap PO DAILY 12/07/20 07/11/22 mcg (2,000 unit) capsule riboflavin (vitamin B2) 100 mg 200 mg PO BID 01/05/21 07/11/22 tablet magnesium 200 mg tablet 250 mg PO BID 05/14/21 07/11/22 tamsulosin 0.4 mg capsule 1 cap PO BID 07/10/21 07/11/22 levetiracetam 500 mg tablet 1,000 mg PO BID 05/17/22 07/11/22 (Keppra) topiramate 25 mg tablet 50 mg PO BID 05/17/22 07/11/22 amlodipine 2.5 mg tablet 2.5 mg PO DAILY 06/29/22 07/11/22 Previous Rx's Medication Instructions Recorded metoclopramide HCl 10 mg tablet 10 mg PO Q6H PRN headaches,nausea, 10/10/21 (Reglan) vomiting #14 tabs [id number]-rqjcgybnxytkk-hmzsadpd 1 cap PO TID PRN pain #7 caps 11/07/21 50 mg-300 mg-40 mg capsule (Fioricet) lidocaine 4 % topical patch 1 patch topical DAILY PRN pain #10 01/21/22 (Aspercreme (lidocaine)) ea tramadol 50 mg tablet 50 mg PO Q6H PRN pain #20 tabs 01/21/22 cyclobenzaprine 5 mg tablet 5 mg PO Q8H PRN pain (scale score 05/24/22 7-10) 5 days #14 tabs lidocaine 5 % topical patch 1 patch topical DAILY PRN pain #30 05/24/22 (Lidoderm) ea naproxen 500 mg tablet 500 mg PO BID PRN pain 10 days #20 05/24/22 tabs prednisone 2.5 mg tablet 2.5 mg PO BID 30 days #60 tabs 06/13/22 abiraterone 250 mg tablet 500 mg PO BEDTIME 90 days #180 tabs 07/07/22 Allergies Allergy/AdvReac Type Severity Reaction Status Date / Time oxycodone [Percocet] AdvReac Intermediate face got Verified 07/11/22 13:17 really red Review of Systems Review of Systems: Constitutional : No Fever, No Chills, No Fatigue ENT/Mouth : No sore throat, No Rhinorrhea Eyes: No Eye Pain, No Swelling, No Redness Cardiovascular : No Chest Pain, No SOB, No Dyspnea on Exertion Respiratory : No Cough, No Sputum Gastrointestinal : No Nausea, No Vomiting, No Diarrhea, No abdominal Pain Genitourinary : No Dysuria, No Urinary Frequency, No Hematuria, Musculoskeletal : No joint pain, No Myalgias, No Joint Swelling Skin : No Skin Lesions, No rash Neuro : No Weakness, No Numbness, pos Dizziness, positive Headache, pos syncope Psych : No Anxiety/Panic, No Depression Heme/Lymph: No Bruising, No Bleeding,No Lymphadenopathy Endocrine : No Polyuria, No Polydipsia All other systems reviewed and are negative PMFSH Past Medical History Attestation statement: The following information was validated with the patient. 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 Elevated cholesterol Hematuria HTN (hypertension) Prostate CA Tremor Surgical History H/O prostate biopsy History of cystoscopy Hx of colonoscopy Social History Social History Household Members: Spouse Housing: House Are you a primary resident care provider to a significant other at home: No Do you presently have visiting nurse or other home services: No Alcohol intake: never Patient Tobacco Use Status: Never used Tobacco Second Hand Smoke Exposure: No Advance Directives: Yes Advance Directives on File: Yes Advance Directives Date on File: 05/22/22 service: No Current occupational status: retired Physical Exam Vital Signs: Vital Signs: Last Vital Signs Temp 98.4 F 08/12/22 21:49 Pulse 58 08/12/22 21:49 Resp 14 08/12/22 21:49 BP 134/89 08/12/22 21:49 Pulse Ox 97 08/12/22 18:17 O2 Del Method 08/12/22 21:49 BMI result Body Mass Index 29.4 Appearance: Alert. Oriented X3. No acute distress. Eyes: Pupils equal, round and reactive to light. ENT: Pharynx normal. atraumatic Neck: Normal inspection. Neck supple. CVS: Normal heart rate and rhythm. Pulses normal. Respiratory: No respiratory distress. Breath sounds normal. Abdomen: Soft and non-tender. Skin: Skin warm and dry. pale skin color. Normal skin turgor. Extremities: No lower extremity edema. No calf ttp Neuro: Oriented X 3. No motor deficit. No sensory deficit. possible mild R pronator drift Course Course Course Narrative: of note has been worked up in past for TIA and syncope felt to be complex migraine negative ortho VS CTA negative per radiology 1007pm states his headache is gone very mild dizziness will attempt ambulation trial after 2nd troponin two negative troponins no distress watching TV. no dizziness up and walking at baseline - feels better. and patient want acute rehab Patient placed in physician observation at 1125pm. The indication for observation is that the patient needs more time to see PT/CM for weakness and possible STR. At this time the patient is well developed well nourished, lungs clear, CV RRR, abd nontender, neuro is intact. MDM - Dizziness MDM Narrative Medical decision making narrative: 71 yo male with hx of seizures on multiple medications, bladder cancer intravesicular chemo, recurrent UTI, prostate cancer with bony mets, HLD, HTN, weakness, migraines, prior stroke - at this time he has no CP/SOB to suggest ACS or PE, his main complaint is headache and dizziness over 8 hours will need labs, EKG, ortho VS and CTA of head and neck to r/o stroke vs ICH. PO night dose of keppra ordered. Dispo per results and findings. Lab Data Result diagrams: 08/12/22 18:33 08/12/22 18:34 Labs: Lab Results 08/12/22 08/12/22 08/12/22 Range/Units 18:33 18:33 18:33 WBC 8.0 (4.8-10.8) X10*3/uL RBC 3.68 L (4.60-5.80) X10*6/uL Hgb 12.5 L (14.0-18.0) g/dl Hct 38.1 L (42.0-52.0) % MCV 103.5 H (80.0-98.0) fL MCH 34.0 H (27.0-33.0) pg MCHC 32.8 (31.0-36.0) g/dl RDW 13.0 (11.0-16.0) % Plt Count 212 (160-400) X10*3/uL MPV 10.2 (9.4-12.4) fL Immature Gran % (Auto) 0.1 (0.0-0.4) % Neut % (Auto) 51.6 (45-73) % Lymph % (Auto) 37.4 (20-40) % [place] % (Auto) 8.0 (2-11) % Eos % (Auto) 2.0 (0-4) % Baso % (Auto) 0.9 (0-2) % Lymph # (Auto) 3.0 (1.2-4.9) X10*3/uL [place] # (Auto) 0.6 (0.1-1.2) X10*3/uL Eos # (Auto) 0.2 (0.0-0.4) X10*3/uL Baso # (Auto) 0.1 (0.0-0.2) X10*3/uL Abs Immat Gran (auto) 0.01 (0.00-0.03) X10*3/uL Absolute Neuts (auto) 4.1 (2.0-8.3) x10*3/uL Absolute Nucleated RBC 0.000 (0.0-0.012) X10*3/uL Nucleated RBC % (auto) 0.0 (0.0-0.2) /100WBC PT (10.0-13.1) SEC INR (0.9-1.1) APTT (26.0-36.4) SEC Sodium (135-145) mmol/L Potassium (3.3-5.1) mmol/L Chloride (96-108) mmol/L Carbon Dioxide (22-29) mmol/L Anion Gap (12-20) BUN (9-16) mg/dL Creatinine (0.5-1.4) mg/dL Estim Creat Clear Calc Estimated GFR Random Glucose (60-115) mg/dL Lactic Acid 1.6 (0.5-2.0) mmol/L Calcium (8.4-10.2) mg/dL Magnesium (1.6-2.6) mg/dL Total Bilirubin (0.0-1.0) mg/dL Direct Bilirubin (0.0-0.5) mg/dL AST (5-37) U/L ALT (0-40) U/L Alkaline Phosphatase (39-117) U/L Troponin I High Sens < 3.5 (<3.5-35.0) ng/L B-Natriuretic Peptide 19 (<100) pg/mL Total Protein (6.5-8.0) g/dL Albumin (3.5-5.0) g/dL Lipase (8-78) U/L Urine Color Urine Appearance Urine pH (5.0-9.0) Ur Specific [place] (1.005-1.025) Urine Protein (Neg-Trace) mg/dL Urine Glucose (UA) (Negative) mg/dL Urine Ketones (Negative) mg/dL Urine Blood (Negative) Urine Nitrite (Negative) Ur Leukocyte Esterase (Negative) COVID-19 ([facility]) (Negative) COVID-19 Clin Com 08/12/22 08/12/22 08/12/22 Range/Units 18:34 18:34 18:34 WBC (4.8-10.8) X10*3/uL RBC (4.60-5.80) X10*6/uL Hgb (14.0-18.0) g/dl Hct (42.0-52.0) % MCV (80.0-98.0) fL MCH (27.0-33.0) pg MCHC (31.0-36.0) g/dl RDW (11.0-16.0) % Plt Count (160-400) X10*3/uL MPV (9.4-12.4) fL Immature Gran % (Auto) (0.0-0.4) % Neut % (Auto) (45-73) % Lymph % (Auto) (20-40) % [place] % (Auto) (2-11) % Eos % (Auto) (0-4) % Baso % (Auto) (0-2) % Lymph # (Auto) (1.2-4.9) X10*3/uL [place] # (Auto) (0.1-1.2) X10*3/uL Eos # (Auto) (0.0-0.4) X10*3/uL Baso # (Auto) (0.0-0.2) X10*3/uL Abs Immat Gran (auto) (0.00-0.03) X10*3/uL Absolute Neuts (auto) (2.0-8.3) x10*3/uL Absolute Nucleated RBC (0.0-0.012) X10*3/uL Nucleated RBC % (auto) (0.0-0.2) /100WBC PT 10.1 (10.0-13.1) SEC INR 0.9 (0.9-1.1) APTT 26.8 (26.0-36.4) SEC Sodium 145 (135-145) mmol/L Potassium 5.0 (3.3-5.1) mmol/L Chloride 113 H (96-108) mmol/L Carbon Dioxide 25 (22-29) mmol/L Anion Gap 12 (12-20) BUN 42 H (9-16) mg/dL Creatinine 1.09 (0.5-1.4) mg/dL Estim Creat Clear Calc 77.7 Estimated GFR > 60 Random Glucose 95 (60-115) mg/dL Lactic Acid (0.5-2.0) mmol/L Calcium 9.2 (8.4-10.2) mg/dL Magnesium 2.1 (1.6-2.6) mg/dL Total Bilirubin 0.8 (0.0-1.0) mg/dL Direct Bilirubin 0.3 (0.0-0.5) mg/dL AST 20 (5-37) U/L ALT 19 (0-40) U/L Alkaline Phosphatase 125 H (39-117) U/L Troponin I High Sens (<3.5-35.0) ng/L B-Natriuretic Peptide (<100) pg/mL Total Protein 6.7 (6.5-8.0) g/dL Albumin 3.7 (3.5-5.0) g/dL Lipase 19 (8-78) U/L Urine Color Urine Appearance Urine pH (5.0-9.0) Ur Specific [place] (1.005-1.025) Urine Protein (Neg-Trace) mg/dL Urine Glucose (UA) (Negative) mg/dL Urine Ketones (Negative) mg/dL Urine Blood (Negative) Urine Nitrite (Negative) Ur Leukocyte Esterase (Negative) COVID-19 ([facility]) Negative (Negative) COVID-19 Clin Com See Note 08/12/22 08/12/22 Range/Units 21:51 22:31 WBC (4.8-10.8) X10*3/uL RBC (4.60-5.80) X10*6/uL Hgb (14.0-18.0) g/dl Hct (42.0-52.0) % MCV (80.0-98.0) fL MCH (27.0-33.0) pg MCHC (31.0-36.0) g/dl RDW (11.0-16.0) % Plt Count (160-400) X10*3/uL MPV (9.4-12.4) fL Immature Gran % (Auto) (0.0-0.4) % Neut % (Auto) (45-73) % Lymph % (Auto) (20-40) % [place] % (Auto) (2-11) % Eos % (Auto) (0-4) % Baso % (Auto) (0-2) % Lymph # (Auto) (1.2-4.9) X10*3/uL [place] # (Auto) (0.1-1.2) X10*3/uL Eos # (Auto) (0.0-0.4) X10*3/uL Baso # (Auto) (0.0-0.2) X10*3/uL Abs Immat Gran (auto) (0.00-0.03) X10*3/uL Absolute Neuts (auto) (2.0-8.3) x10*3/uL Absolute Nucleated RBC (0.0-0.012) X10*3/uL Nucleated RBC % (auto) (0.0-0.2) /100WBC PT (10.0-13.1) SEC INR (0.9-1.1) APTT (26.0-36.4) SEC Sodium (135-145) mmol/L Potassium (3.3-5.1) mmol/L Chloride (96-108) mmol/L Carbon Dioxide (22-29) mmol/L Anion Gap (12-20) BUN (9-16) mg/dL Creatinine (0.5-1.4) mg/dL Estim Creat Clear Calc Estimated GFR Random Glucose (60-115) mg/dL Lactic Acid (0.5-2.0) mmol/L Calcium (8.4-10.2) mg/dL Magnesium (1.6-2.6) mg/dL Total Bilirubin (0.0-1.0) mg/dL Direct Bilirubin (0.0-0.5) mg/dL AST (5-37) U/L ALT (0-40) U/L Alkaline Phosphatase (39-117) U/L Troponin I High Sens < 3.5 (<3.5-35.0) ng/L B-Natriuretic Peptide (<100) pg/mL Total Protein (6.5-8.0) g/dL Albumin (3.5-5.0) g/dL Lipase (8-78) U/L Urine Color Yellow Urine Appearance Clear Urine pH 6.0 (5.0-9.0) Ur Specific [place] 1.025 (1.005-1.025) Urine Protein Negative (Neg-Trace) mg/dL Urine Glucose (UA) Negative (Negative) mg/dL Urine Ketones Negative (Negative) mg/dL Urine Blood Negative (Negative) Urine Nitrite Negative (Negative) Ur Leukocyte Esterase Negative (Negative) COVID-19 ([facility]) (Negative) COVID-19 Clin Com ECG Data Attestation: I personally reviewed and interpreted this ECG as follows: ECG interpretation date: 08/12/22 ECG interpretation time: 20:44 Interpretation: Rate: 57 Rhythm: sinus bradycardia Golden: left Normal P waves. Normal DUNCAN. Normal QRS complex. Poor R wave progression ST T wave : normal NO SILVIA qTC: normal prior studies: no acute ischemia The study has been interpreted contemporaneously by me. . Discharge Plan Discharge Clinical Impression: Migraine headache without aura, Vasovagal syncope, Dizziness Patient Disposition: Still a Patient Prescriptions: No Action prednisone 2.5 mg tablet 2.5 mg PO BID 30 Days Qty: 60 5RF abiraterone 250 mg tablet 500 mg PO BEDTIME 90 Days Qty: 180 3RF Rx Instructions: must be taken on empty stomach, at least 1 hr before or 2 hrs after a meal/food cholecalciferol (vitamin D3) 50 mcg (2,000 unit) capsule 1 cap PO DAILY magnesium 200 mg Tablet 250 mg PO BID atorvastatin 40 mg tablet 1 tab PO BEDTIME tamsulosin 0.4 mg capsule 1 cap PO BID wjfjtnkvae-rinzqoauseazw-vjuv [Fioricet] 50-300-40 mg capsule 1 cap PO TID PRN (Reason: pain) Qty: 7 0RF Rx Instructions: with no more than 2 days per week lidocaine [Aspercreme (lidocaine)] 4 % adhesive patch,medicated 1 patch topical DAILY PRN (Reason: pain) Qty: 10 0RF tramadol 50 mg tablet 50 mg PO Q6H PRN (Reason: pain) Qty: 20 0RF levetiracetam [Keppra] 500 mg tablet 1,000 mg PO BID topiramate 25 mg tablet 50 mg PO BID lidocaine [Lidoderm] 5 % adhesive patch,medicated 1 patch topical DAILY MDD remove after 12 hours PRN (Reason: pain) Qty: 30 0RF Rx Instructions: leave on most painful area for up to 12 hrs naproxen 500 mg tablet 500 mg PO BID PRN (Reason: pain) 10 Days Qty: 20 0RF cyclobenzaprine 5 mg tablet 5 mg PO Q8H PRN (Reason: pain (scale score 7-10)) 5 Days Qty: 14 0RF metoclopramide HCl [Reglan] 10 mg tablet 10 mg PO Q6H PRN (Reason: headaches,nausea, vomiting) Qty: 14 0RF riboflavin (vitamin B2) 100 mg tablet 200 mg PO BID lidocaine HCl 2 % jelly in applicator 10 ml intra-urethral ONCE Qty: 10 0RF amlodipine 2.5 mg tablet 2.5 mg PO DAILY
[2022-08-12 18:38] LABS: MANUAL DIFF FLAG NO
[2022-08-12 18:40] LABS: Basophils Absolute Auto 0.1 X10*3/uL (0.0-0.2); Basophils Percent Auto 0.9 % (0-2); Eosinophils Absolute Auto 0.2 X10*3/uL (0.0-0.4); Hematocrit 38.1 % (42.0-52.0); Hemoglobin 12.5 g/dl (14.0-18.0); Imm Gran Abs Auto 0.01 X10*3/uL (0.00-0.03); Imm Gran Pct Auto 0.1 % (0.0-0.4); Lymphocytes Percent Auto 37.4 % (20-40); Mean Corpuscular HGB Conc 32.8 g/dl (31.0-36.0); Mean Corpuscular Volume 103.5 fL (80.0-98.0); Mean Platelet Volume 10.2 fL (9.4-12.4); Monocytes Absolute Auto 0.6 X10*3/uL (0.1-1.2); Neutrophils Absolute Auto 4.1 x10*3/uL (2.0-8.3); Neutrophils Percent Auto 51.6 % (45-73); Platelet Count 212 X10*3/uL (160-400); Red Blood Count 3.68 X10*6/uL (4.60-5.80)
[2022-08-12 18:47] LABS: INTERNATIONAL NORM RATIO 0.9 (0.9-1.1); Prothrombin Time 10.1 SEC (10.0-13.1)
[2022-08-12 18:49] LABS: Partial Thromboplastin Time 26.8 SEC (26.0-36.4)
[2022-08-12 18:51] LABS: Lactic Acid 1.6 mmol/L (0.5-2.0)
[2022-08-12 18:54] LABS: COVID-19 Test Negative (Negative)
[2022-08-12 18:55] LABS: Alanine Aminotransferase 19 U/L (0-40); Albumin Level 3.7 g/dL (3.5-5.0); Alkaline Phosphatase 125 U/L (39-117); Anion Gap 12 (12-20); Aspartate Amino Transferase 20 U/L (5-37); Bilirubin Direct 0.3 mg/dL (0.0-0.5); Bilirubin Total 0.8 mg/dL (0.0-1.0); Blood Urea Nitrogen 42 mg/dL (9-16); Calcium 9.2 mg/dL (8.4-10.2); Carbon Dioxide 25 mmol/L (22-29); Chloride 113 mmol/L (96-108); Creatinine Clr Calc Pharmacy 77.7; Estimated Glomerular Filt Rate > 60; Glucose Random 95 mg/dL (60-115); Lipase 19 U/L (8-78); Magnesium 2.1 mg/dL (1.6-2.6); Sodium 145 mmol/L (135-145); Total Protein 6.7 g/dL (6.5-8.0)
[2022-08-12 19:00] LABS: B Type Natriuretic Peptide 19 pg/mL (<100); Troponin-I High Sensitivity < 3.5 ng/L (<3.5-35.0)
[2022-08-12] MEDS: iohexoL 350 MG/ML 100 ML INFUS..BTL IV (20:03)
[2022-08-12] MEDS: Topiramate 25 MG TABLET 50 MG PO (21:42)
[2022-08-12 21:59] LABS: Appearance Urine Clear; Color Urine Yellow; Glucose Urine UA Negative (Negative); Leukocyte Esterase Urine Negative (Negative); Nitrite Urine Negative (Negative); Specific Gravity - Urine 1.025 (1.005-1.025); Urine Blood Negative (Negative); Urine Ketones Negative (Negative); Urine Protein Negative (Neg-Trace)
[2022-08-12 23:02] LABS: Troponin-I High Sensitivity < 3.5 ng/L (<3.5-35.0)
[2022-08-13] MEDS: Atorvastatin Calcium 40 MG TABLET PO (00:47)
[2022-08-13] MEDS: Tamsulosin HCL 0.4 MG CAPSULE PO ×2 (00:47→09:36)
[2022-08-13 04:35] VITALS: BP 146/74; PULSE 54; RESP 16; O2SAT 97
--- NOTE | 2022-08-13 08:19 | PHA.MEDREC ---
Pharmacy Consult ? Medication Reconciliation Pharmacy has reviewed the medication reconciliation compelted by Zachariah. I confirmed with patient that he does taking Keppra 1000 mg TID instead of of 1500 mg BID. Patient state he will call to bring in abiraterone. Alyce Allen, PharmD
[2022-08-13 09:35] VITALS: BP 119/74; PULSE 72; RESP 18; O2SAT 97
[2022-08-13] MEDS: predniSONE 5 MG TABLET 2.5 MG PO (09:36)
[2022-08-13] MEDS: Cholecalciferol (Vitamin D3) 25 MCG TABLET 50 MCG PO (09:36)
[2022-08-13] MEDS: amLODIPine Besylate 2.5 MG TABLET PO (09:37)
[2022-08-13] MEDS: levETIRAcetam 1,000 MG TABLET 1000 MG PO (09:37)
[2022-08-13] MEDS: Magnesium Oxide 400 MG TABLET PO (09:37)
[2022-08-13] MEDS: Topiramate 25 MG TABLET 50 MG PO (09:37)
--- NOTE | 2022-08-13 10:05 | PC.NURSE ---
pt up tp bathroom for BM. pt ambulating with steady gait, standby assist
--- NOTE | 2022-08-13 13:23 | MHC.CM.ED ---
Received case management consult from Dr Sweet. Patient came to the ER due to syncope. Work up essentially negative. Met with patient in regards to discharge planning. Patient lives with his , Florencia, ambulates with a cane/walkeer and had no services prior to coming to the ER. PCP verified. HCP verified to be on file. Patient is active with [facility]. [facility] was at patient's home last week to complete an assessment for home service needs. Patient was recently weekly indwelling bladder chemo for 6 weeks. Patient's last treatment was 08/01. He is done with this treatment at this time. Patient and Florencia are agreeable to home VNA. Referral broadcasted in [facility]. [facility] accepted patient. ER H&P will be faxed to Abbey at [facility], so she can notify patient's palliative care specialist. Florencia will transport patient home. Patient, Milagro RN and Rupinder MCCLURE aware. Continue to monitor for d/c needs.
== END 2022-08-13 13:54 | disposition home or self-care (01) ==
PROVIDERS: Emergency Provider Emergency Medicine; PCP Family Medicine
DX: G43.009 Migraine without aura, not intractable, without status migrainosus (principal); R55 Syncope and collapse; R42 Dizziness and giddiness; R06.02 Shortness of breath; Z79.899 Other long term (current) drug therapy; Z20.822 Contact with and (suspected) exposure to COVID-19
CPT/HCPCS: 36415; 70496; 70498; 71045; 80048; 80076; 81003; 83605; 83690; 83735; 83880; 84484; 85025; 85610; 85730; 87635; 93005; 96360; 96361; 99285; Q9967

== ENCOUNTER 2022-08-14 17:14 | Emergency (ER) | payer OTHER, SELFPAY ==
[2022-08-14] VITALS (8 sets, daily range): BP systolic 122–159; BP diastolic 61–81; PULSE 57–83; RESP 18–20; TEMP 36.3–36.6; O2SAT 95–100; BMI 29.2
--- NOTE | ~2022-08-14 | MR_ITS ---
EXAMINATION: MR BRAIN WITHOUT CONTRAST CLINICAL INFORMATION: Vision changes, dizziness, weakness, headache COMPARISON: CTA head and neck 08/12/2022, MRI brain with and without contrast 07/12/2021 TECHNIQUE: Multiplanar multisequence MR imaging of the brain was obtained without intravenous contrast. FINDINGS: There is no acute infarct on diffusion-weighted imaging. Stable foci of susceptibility artifact in the left parietal lobe and right basal ganglia, likely chronic microhemorrhage. No new intracranial blood products on iron sensitive imaging. No extra-axial collection or mass effect/herniation. 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 No hydrocephalus. Mild to moderate generalized cerebral volume loss with commensurate sulcal and ventricular prominence. The major flow voids at the skull base are preserved. Stable indentation of the left ventrolateral rissa by the left vertebral artery. The midline structures are normal. The cerebellar tonsils are normally positioned. The craniocervical junction is normal. Marrow signal is within normal limits. The visualized soft tissues are without significant abnormality. No signal abnormality within the paranasal sinuses or within the mastoid air cells. MR/MR head/brain wo con IMPRESSION: No acute infarct or other acute intracranial abnormality.
--- NOTE | 2022-08-14 17:22 | ECG_ITS ---
Test Reason : HEADACHE Blood Pressure : / mmHG Vent. Rate : 060 BPM Atrial Rate : 060 BPM P-R Int : 160 ms QRS Dur : 110 ms QT Int : 460 ms P-R-T Axes : 001 -54 -06 degrees QTc Int : 460 ms Normal sinus rhythm Left anterior fascicular block Intra-ventricular conduction delay Nonspecific T wave abnormality Inferior leads Abnormal ECG When compared with ECG of 12-AUG-2022 20:28, No significant change was found Referred By: Earl Sweet Electronically Signed By:DIPAK BROWNLEE MD
--- NOTE | 2022-08-14 17:24 | ED.GENADULT ---
HPI - General Adult General Chief complaint: Dizziness Stated complaint: HEADACHE DIZZINESS Time Seen by Provider: 08/14/22 17:16 Source: patient and EMS Mode of arrival: EMS Limitations: no limitations History of Present Illness HPI narrative: This is a 71-year-old male history of of seizures on? multiple medications, bladder cancer intravesicular chemo, recurrent UTI, prostate cancer with bony mets, HLD, HTN, weakness, migraines, prior stroke presenting with weakness, dizziness, severe headache, blurred vision X1 day Patient tells me that he is having a horrible headache that is localized to the front of his head associated with blurred vision bilaterally, he tells me this does not feel like his typical headache. He also reports he is extremely dizzy he tells me every little movement makes him dizzy and he is unable to walk secondary to dizziness. He tells me he has never had anything like this before. Patient does have a history of migraines however this does not feel like his typical. Upon history taking patient is sitting there with his eyes closed, and not moving as movement makes him very dizzy. He also tells me he feels globally weak, not particularly on one side. Patient denies any trauma or head injuries. Patient denies chest pain, shortness of breath, nausea, vomiting, abdominal pain, photophobia. To note patient tells me he was seen here a few days ago where he had a negative workup with a negative head CT however he tells me these symptoms are much different. Related Data Home Medications Medication Instructions Recorded Confirmed atorvastatin 40 mg tablet 1 tab PO BEDTIME 07/19/20 08/13/22 cholecalciferol (vitamin D3) 50 1 cap PO DAILY 12/07/20 08/13/22 mcg (2,000 unit) capsule riboflavin (vitamin B2) 100 mg 200 mg PO BID 01/05/21 08/13/22 tablet magnesium 200 mg tablet 250 mg PO BID 05/14/21 08/13/22 tamsulosin 0.4 mg capsule 1 cap PO BID 07/10/21 08/13/22 levetiracetam 500 mg tablet 1,000 mg PO 3XD 05/17/22 08/13/22 (Keppra) topiramate 25 mg tablet 50 mg PO BID 05/17/22 08/13/22 amlodipine 2.5 mg tablet 2.5 mg PO DAILY 06/29/22 08/13/22 Previous Rx's Medication Instructions Recorded tramadol 50 mg tablet 50 mg PO Q6H PRN pain #20 tabs 01/21/22 naproxen 500 mg tablet 500 mg PO BID PRN pain 10 days #20 05/24/22 tabs prednisone 2.5 mg tablet 2.5 mg PO BID 30 days #60 tabs 06/13/22 abiraterone 250 mg tablet 500 mg PO BEDTIME 90 days #180 tabs 07/07/22 meclizine 25 mg tablet 25 mg PO BID PRN dizziness #10 tabs 08/15/22 Allergies Allergy/AdvReac Type Severity Reaction Status Date / Time oxycodone [Percocet] AdvReac Intermediate face got Verified 07/11/22 13:17 really red Review of Systems Review of Systems: Constitutional : No Weight loss, No Fever, No Chills, No Fatigue, No Malaise ENT/Mouth : No sore throat, No Rhinorrhea Eyes: No Eye Pain, No Swelling, No Redness Cardiovascular : No Chest Pain, No SOB, No Dyspnea on Exertion, No Orthopnea, No Edema, No Palpitations Respiratory : No Cough, No Sputum, No Wheezing Gastrointestinal : No Nausea, No Vomiting, No Diarrhea, No Constipation, No abdominal Pain, No Hematochezia, No Melena Genitourinary : No Dysuria, No Urinary Frequency, No Hematuria, Musculoskeletal : No joint pain, No Myalgias, No Joint Swelling Skin : No Skin Lesions, No rash Neuro : No Weakness, No Numbness, + Dizziness, + Headache Psych : No Anxiety/Panic, No Depression All other systems reviewed and are negative Yes all other systems are reviewed and are negative [facility] Past Medical History Attestation statement: The following information was validated with the patient. 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 Elevated cholesterol Hematuria HTN (hypertension) Prostate CA Tremor Surgical History H/O prostate biopsy History of cystoscopy Hx of colonoscopy Social History Social History Household Members: Spouse Housing: House Are you a primary career orientation teacher to a significant other at home: No Do you presently have visiting nurse or other home services: No Alcohol intake: never Patient Tobacco Use Status: Never used Tobacco Smoked in Last 30 Days: No Second Hand Smoke Exposure: No Use of substances other than those prescribed or required for medical reasons: No Advance Directives: Yes Advance Directives on File: Yes Advance Directives Date on File: 05/22/22 service: No Current occupational status: retired Physical Exam ED Vital Signs: Vital Signs - 24 hr 08/14/22 17:24 08/14/22 18:30 08/14/22 20:33 Temperature 97.8 F Pulse Rate 64 70 59 Respiratory Rate 20 20 Blood Pressure 159/78 H 147/81 H 139/66 Pulse Oximetry 96 98 99 Oxygen Delivery Method Room Air Room Air Room Air 08/14/22 22:41 08/14/22 22:42 08/14/22 22:45 Temperature Pulse Rate 67 61 73 Respiratory Rate 18 Blood Pressure 152/64 H 144/72 H 137/71 Pulse Oximetry 98 Oxygen Delivery Method Room Air 08/14/22 22:46 08/14/22 23:30 Temperature 97.3 F Pulse Rate 83 57 Respiratory Rate 18 Blood Pressure 134/61 122/70 Pulse Oximetry 95 Oxygen Delivery Method Room Air BMI result Body Mass Index 29.2 vss Appearance: Alert.? Oriented X3.? No acute distress.? Patient appears uncomfortable lying on the stretcher with his eyes closed. Complaining of dizziness every time he moves or I move him. Head: Normocephalic, atraumatic, no step-offs or deformities Eyes: Pupils equal, round and reactive to light.?EOMI no nystagmus ENT: Pharynx normal.? Neck: Normal inspection.? Neck supple.? No meningeal signs, negative Kernig and Brudzinski CVS: Normal heart rate and rhythm.? Pulses normal.? Respiratory: No respiratory distress.? Breath sounds normal.? Abdomen: Soft and nontender.? Skin: Skin warm and dry.? Normal skin color.? Normal skin turgor.? Extremities: No lower extremity edema.? No calf ttp. 4/5 strength to bilateral upper and lower extremities Neuro: Oriented X 3.? No motor deficit.? No sensory deficit. CN 2-12 intact . Slight finger ataxia with [id number]. Patient unable to sit up secondary to dizziness. NIH stroke scale of 1 Course Reevaluation(s) Reevaluation #1: MRI with no acute findings. Laboratory studies pending. Time: 18:53 Reevaluation #2: CBC appears to be within patient's baseline. Chemistry with no acute electrolyte abnormalities requiring intervention. Urine clean. Ethanol level negative. At this time patient is still reporting headache however tells me that the dizziness has subsided. Will administer Reglan and Benadryl. Time: 22:12 Reevaluation #3: Patient reports complete resolution of symptoms. Patient was evaluated by the hospitalist for possible admission, patient has no medical complaints at this time tells hospitalist that he is no longer having headache or dizziness. Upon re-evaluation he tells me the same thing. Patient feeling well, ambualtory w/ steady gait. No complaints at this time. No need for hospital admission, patient would like to go home. At this time I feel comfortable discharge home will have him follow with PCP and neurology. Outlined worrisome signs and symptoms on discharge, also discussed this case with my attending Dr. Hall who agrees with diagnosis and treatment plan. Time: 00:42 Medical Decision Making [facility] Narrative Medical decision making narrative: 1721 71-year-old male presents with severe headache, dizziness, blurred vision, weakness x1 day progressively worsening. Onset of symptoms this morning when patient awoke around 08:00. Physical examination with 4/5 strength upper and lower extremities, normal sensation, slight ataxia noted to [id number], [id number], patient too dizzy to sit up. Pupils equal round and reactive. Extraocular movements intact. NIH Stroke Scale of 1. Based off patient history and physical exam concerns for possible posterior stroke, this case was discussed with my attending Dr. Roy who recommends MRI of the head as this is patient's 2nd visit and there are abnormal findings on exam. Will obtain an MRI at this time. Patient without fevers or altered mental status unlikely meningitis or encephalitis. No meningeal signs on exam. Plan - MRI labs, ekg, cardiac monitoring, UA Medical Records Medical records reviewed: Yes I reviewed the patient's medical records. Lab Data Lab results reviewed: Yes I reviewed the patient's lab results. Result diagrams: 08/14/22 18:48 08/14/22 18:48 Labs: Lab Results 08/14/22 08/14/22 08/14/22 Range/Units 18:47 18:47 18:47 WBC (4.8-10.8) X10*3/uL RBC (4.60-5.80) X10*6/uL Hgb (14.0-18.0) g/dl Hct (42.0-52.0) % MCV (80.0-98.0) fL MCH (27.0-33.0) pg MCHC (31.0-36.0) g/dl RDW (11.0-16.0) % Plt Count (160-400) X10*3/uL MPV (9.4-12.4) fL Immature Gran % (Auto) (0.0-0.4) % Neut % (Auto) (45-73) % Lymph % (Auto) (20-40) % Fleming % (Auto) (2-11) % Eos % (Auto) (0-4) % Baso % (Auto) (0-2) % Lymph # (Auto) (1.2-4.9) X10*3/uL Fleming # (Auto) (0.1-1.2) X10*3/uL Eos # (Auto) (0.0-0.4) X10*3/uL Baso # (Auto) (0.0-0.2) X10*3/uL Abs Immat Gran (auto) (0.00-0.03) X10*3/uL Absolute Neuts (auto) (2.0-8.3) x10*3/uL Absolute Nucleated RBC (0.0-0.012) X10*3/uL Nucleated RBC % (auto) (0.0-0.2) /100WBC PT 10.7 (10.0-13.1) SEC INR 0.9 (0.9-1.1) Sodium (135-145) mmol/L Potassium (3.3-5.1) mmol/L Chloride (96-108) mmol/L Carbon Dioxide (22-29) mmol/L Anion Gap (12-20) BUN (9-16) mg/dL Creatinine (0.5-1.4) mg/dL Estim Creat Clear Calc Estimated GFR Random Glucose (60-115) mg/dL Calcium (8.4-10.2) mg/dL Magnesium (1.6-2.6) mg/dL Total Bilirubin (0.0-1.0) mg/dL AST (5-37) U/L ALT (0-40) U/L Alkaline Phosphatase (39-117) U/L Troponin I High Sens (<3.5-35.0) ng/L Total Protein (6.5-8.0) g/dL Albumin (3.5-5.0) g/dL Urine Color Urine Appearance Urine pH (5.0-9.0) Ur Specific [place] (1.005-1.025) Urine Protein (Neg-Trace) mg/dL Urine Glucose (UA) (Negative) mg/dL Urine Ketones (Negative) mg/dL Urine Blood (Negative) Urine Nitrite (Negative) Ur Leukocyte Esterase (Negative) Ethyl Alcohol < 10 mg/dL COVID-19 ([facility]) Negative (Negative) COVID-19 Clin Com See Note 08/14/22 08/14/22 08/14/22 Range/Units 18:48 18:48 18:48 WBC 6.7 (4.8-10.8) X10*3/uL RBC 3.51 L (4.60-5.80) X10*6/uL Hgb 11.9 L (14.0-18.0) g/dl Hct 35.9 L (42.0-52.0) % MCV 102.3 H (80.0-98.0) fL MCH 33.9 H (27.0-33.0) pg MCHC 33.1 (31.0-36.0) g/dl RDW 13.2 (11.0-16.0) % Plt Count 219 (160-400) X10*3/uL MPV 10.2 (9.4-12.4) fL Immature Gran % (Auto) 0.1 (0.0-0.4) % Neut % (Auto) 53.8 (45-73) % Lymph % (Auto) 34.1 (20-40) % Fleming % (Auto) 9.4 (2-11) % Eos % (Auto) 1.9 (0-4) % Baso % (Auto) 0.7 (0-2) % Lymph # (Auto) 2.3 (1.2-4.9) X10*3/uL Fleming # (Auto) 0.6 (0.1-1.2) X10*3/uL Eos # (Auto) 0.1 (0.0-0.4) X10*3/uL Baso # (Auto) 0.1 (0.0-0.2) X10*3/uL Abs Immat Gran (auto) 0.01 (0.00-0.03) X10*3/uL Absolute Neuts (auto) 3.6 (2.0-8.3) x10*3/uL Absolute Nucleated RBC 0.000 (0.0-0.012) X10*3/uL Nucleated RBC % (auto) 0.0 (0.0-0.2) /100WBC PT (10.0-13.1) SEC INR (0.9-1.1) Sodium 143 (135-145) mmol/L Potassium 4.2 (3.3-5.1) mmol/L Chloride 113 H (96-108) mmol/L Carbon Dioxide 23 (22-29) mmol/L Anion Gap 11 L (12-20) BUN 35 H (9-16) mg/dL Creatinine 1.13 (0.5-1.4) mg/dL Estim Creat Clear Calc 74.8 Estimated GFR > 60 Random Glucose 88 (60-115) mg/dL Calcium 8.7 (8.4-10.2) mg/dL Magnesium 2.0 (1.6-2.6) mg/dL Total Bilirubin 1.0 (0.0-1.0) mg/dL AST 20 (5-37) U/L ALT 23 (0-40) U/L Alkaline Phosphatase 109 (39-117) U/L Troponin I High Sens < 3.5 (<3.5-35.0) ng/L Total Protein 6.2 L (6.5-8.0) g/dL Albumin 3.5 (3.5-5.0) g/dL Urine Color Urine Appearance Urine pH (5.0-9.0) Ur Specific [place] (1.005-1.025) Urine Protein (Neg-Trace) mg/dL Urine Glucose (UA) (Negative) mg/dL Urine Ketones (Negative) mg/dL Urine Blood (Negative) Urine Nitrite (Negative) Ur Leukocyte Esterase (Negative) Ethyl Alcohol mg/dL COVID-19 ([facility]) (Negative) COVID-19 Clin Com 08/14/22 Range/Units 20:35 WBC (4.8-10.8) X10*3/uL RBC (4.60-5.80) X10*6/uL Hgb (14.0-18.0) g/dl Hct (42.0-52.0) % MCV (80.0-98.0) fL MCH (27.0-33.0) pg MCHC (31.0-36.0) g/dl RDW (11.0-16.0) % Plt Count (160-400) X10*3/uL MPV (9.4-12.4) fL Immature Gran % (Auto) (0.0-0.4) % Neut % (Auto) (45-73) % Lymph % (Auto) (20-40) % Fleming % (Auto) (2-11) % Eos % (Auto) (0-4) % Baso % (Auto) (0-2) % Lymph # (Auto) (1.2-4.9) X10*3/uL Fleming # (Auto) (0.1-1.2) X10*3/uL Eos # (Auto) (0.0-0.4) X10*3/uL Baso # (Auto) (0.0-0.2) X10*3/uL Abs Immat Gran (auto) (0.00-0.03) X10*3/uL Absolute Neuts (auto) (2.0-8.3) x10*3/uL Absolute Nucleated RBC (0.0-0.012) X10*3/uL Nucleated RBC % (auto) (0.0-0.2) /100WBC PT (10.0-13.1) SEC INR (0.9-1.1) Sodium (135-145) mmol/L Potassium (3.3-5.1) mmol/L Chloride (96-108) mmol/L Carbon Dioxide (22-29) mmol/L Anion Gap (12-20) BUN (9-16) mg/dL Creatinine (0.5-1.4) mg/dL Estim Creat Clear Calc Estimated GFR Random Glucose (60-115) mg/dL Calcium (8.4-10.2) mg/dL Magnesium (1.6-2.6) mg/dL Total Bilirubin (0.0-1.0) mg/dL AST (5-37) U/L ALT (0-40) U/L Alkaline Phosphatase (39-117) U/L Troponin I High Sens (<3.5-35.0) ng/L Total Protein (6.5-8.0) g/dL Albumin (3.5-5.0) g/dL Urine Color Yellow Urine Appearance Clear Urine pH 5.5 (5.0-9.0) Ur Specific [place] 1.020 (1.005-1.025) Urine Protein Negative (Neg-Trace) mg/dL Urine Glucose (UA) Negative (Negative) mg/dL Urine Ketones Negative (Negative) mg/dL Urine Blood Negative (Negative) Urine Nitrite Negative (Negative) Ur Leukocyte Esterase Negative (Negative) Ethyl Alcohol mg/dL COVID-19 ([facility]) (Negative) COVID-19 Clin Com Critical Care Time Critical Care Time Critical Care Time: No Discharge Plan Discharge Clinical Impression: Headache, Dizziness Patient Disposition: Home, Self-Care Additional Instructions: Take your medications as prescribed. If you were prescribed antibiotics today, it is important that you take your medication to their entirety, do not skip any doses, do not finish them early. Follow-up with your primary care provider this week. Return to the emergency department with new or worsening symptoms. Such as fevers, chills, chest pain, shortness of breath, nausea, vomiting, dizziness, headache, vision changes, lethargy, weakness In case of emergency call 911 Your brain MRI did not show any signs of stroke. Your laboratory studies were reassuring. Your urine showed no signs of infection. I have attached her MRI results below. Meclizine is a medication that has been sent to her pharmacy, please take this as needed and as prescribed for dizziness or vertigo. MR/MR head/brain wo con IMPRESSION: ? No acute infarct or other acute intracranial abnormality. ? Prescriptions: New meclizine 25 mg tablet 25 mg PO BID PRN (Reason: dizziness) Qty: 10 0RF No Action prednisone 2.5 mg tablet 2.5 mg PO BID 30 Days Qty: 60 5RF abiraterone 250 mg tablet 500 mg PO BEDTIME 90 Days Qty: 180 3RF Rx Instructions: must be taken on empty stomach, at least 1 hr before or 2 hrs after a meal/food cholecalciferol (vitamin D3) 50 mcg (2,000 unit) capsule 1 cap PO DAILY magnesium 200 mg Tablet 250 mg PO BID atorvastatin 40 mg tablet 1 tab PO BEDTIME tamsulosin 0.4 mg capsule 1 cap PO BID tramadol 50 mg tablet 50 mg PO Q6H PRN (Reason: pain) Qty: 20 0RF levetiracetam [Keppra] 500 mg tablet 1,000 mg PO 3XD topiramate 25 mg tablet 50 mg PO BID naproxen 500 mg tablet 500 mg PO BID PRN (Reason: pain) 10 Days Qty: 20 0RF riboflavin (vitamin B2) 100 mg tablet 200 mg PO BID amlodipine 2.5 mg tablet 2.5 mg PO DAILY Referrals: Physician,Unknown J [Primary Care Provider] - 2 days Stand Alone Forms: Work/School Release
--- NOTE | 2022-08-14 17:28 | PC.NURSE ---
food service technician at bedside
--- OUTSIDE RECORDS SUMMARY | 2022-08-14 17:34 | XMS_ITS ---
:1950 Author Care Team Providers Name Role Phone JAMAL DELGADILLO 1ST FLOOR OTHER [phone] SVETLANA WOODRUFF MD Primary Care Provider [phone] Allergies Code Code System Name Reaction Severity [...] tension; Hyperlipidemia; Malignant Tumor of Prostate; Fall Shaenll Brown [employer]: [address] [place] [address], Ph. 05/23/2021 Asthenia Due to Disease; Essential Hyper tension Shanell Brown [employer]: [address] [place] [address], Ph. 05/19/2021 Asthenia Due to Disease; Malignant Tumor of Prostate; Hyperlipidemia; Essential Hypertension; Fall; Acute Urinary Tract Infection Caridad Miller MD: [address] [place] [address], Ph. 05/16/2021 Malignant Tumor of Prostate; Hyperlipide rashawn; Essential Hypertension; Fall Shanell Brown [employer]: [address] [place] [address], Ph. Social History Tobacco Smoking Status Never [...]
--- NOTE | 2022-08-14 18:09 | PC.NURSE ---
pt just got back from mri
[2022-08-14] MEDS: levETIRAcetam in NaCl (iso-os) 1,000 MG/100 ML PIGGYBACK 400 MG IV (18:20)
[2022-08-14] MEDS: Morphine Sulfate 4 MG/ML CARTRIDGE IVPUSH (18:20)
[2022-08-14] MEDS: Meclizine HCl 25 MG TABLET PO (18:20)
[2022-08-14] MEDS: 0.9 % Sodium Chloride 1,000 ML 999 ML IV ×2 (18:20→21:00)
--- NOTE | 2022-08-14 18:32 | PC.NURSE ---
pt alert and oriented, skin pwd, respirations even and unlabored, no facial droop, no visible hand drift, grasp strong and equal, no visual disturbances pt does report having a bad frontal headache and dizziness, spinning
[2022-08-14 18:56] LABS: MANUAL DIFF FLAG NO
[2022-08-14 19:02] LABS: Basophils Absolute Auto 0.1 X10*3/uL (0.0-0.2); Basophils Percent Auto 0.7 % (0-2); Eosinophils Absolute Auto 0.1 X10*3/uL (0.0-0.4); Eosinophils Percent Auto 1.9 % (0-4); Hematocrit 35.9 % (42.0-52.0); Hemoglobin 11.9 g/dl (14.0-18.0); Imm Gran Abs Auto 0.01 X10*3/uL (0.00-0.03); Imm Gran Pct Auto 0.1 % (0.0-0.4); Lymphocytes Absolute Auto 2.3 X10*3/uL (1.2-4.9); Lymphocytes Percent Auto 34.1 % (20-40); Mean Corpuscular HGB Conc 33.1 g/dl (31.0-36.0); Mean Corpuscular Hemoglobin 33.9 pg (27.0-33.0); Mean Corpuscular Volume 102.3 fL (80.0-98.0); Mean Platelet Volume 10.2 fL (9.4-12.4); Monocytes Absolute Auto 0.6 X10*3/uL (0.1-1.2); Monocytes Percent Auto 9.4 % (2-11); Neutrophils Absolute Auto 3.6 x10*3/uL (2.0-8.3); Neutrophils Percent Auto 53.8 % (45-73); Platelet Count 219 X10*3/uL (160-400); Red Blood Count 3.51 X10*6/uL (4.60-5.80); Red Cell Distribution Width 13.2 % (11.0-16.0); White Blood Count 6.7 X10*3/uL (4.8-10.8)
[2022-08-14 19:11] LABS: Ethanol < 10 mg/dL; INTERNATIONAL NORM RATIO 0.9 (0.9-1.1); Prothrombin Time 10.7 SEC (10.0-13.1)
[2022-08-14 19:15] LABS: Alanine Aminotransferase 23 U/L (0-40); Albumin Level 3.5 g/dL (3.5-5.0); Alkaline Phosphatase 109 U/L (39-117); Anion Gap 11 (12-20); Aspartate Amino Transferase 20 U/L (5-37); Blood Urea Nitrogen 35 mg/dL (9-16); Calcium 8.7 mg/dL (8.4-10.2); Carbon Dioxide 23 mmol/L (22-29); Chloride 113 mmol/L (96-108); Creatinine Clr Calc Pharmacy 74.8; Estimated Glomerular Filt Rate > 60; Glucose Random 88 mg/dL (60-115); Potassium 4.2 mmol/L (3.3-5.1); Sodium 143 mmol/L (135-145); Total Protein 6.2 g/dL (6.5-8.0)
[2022-08-14 19:18] LABS: COVID-19 Test Negative (Negative); IDNOW Serial# 16C4AD1C
[2022-08-14 19:22] LABS: Troponin-I High Sensitivity < 3.5 ng/L (<3.5-35.0)
[2022-08-14 21:05] LABS: Appearance Urine Clear; Color Urine Yellow; Glucose Urine UA Negative (Negative); Leukocyte Esterase Urine Negative (Negative); Nitrite Urine Negative (Negative); PH 5.5 (5.0-9.0); Urine Blood Negative (Negative); Urine Ketones Negative (Negative); Urine Protein Negative (Neg-Trace)
[2022-08-14] MEDS: diphenhydrAMINE HCL 50 MG/ML VIAL 25 MG IVPUSH (22:38)
[2022-08-14] MEDS: Metoclopramide HCl 10 MG/2 ML VIAL IVPUSH (22:38)
--- NOTE | 2022-08-14 23:55 | P.HPHOSP_ITS ---
[facility] Medical History Bladder cancer Bladder tumor Bone cancer 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 Elevated cholesterol Hematuria HTN (hypertension) Prostate CA Tremor Surgical History H/O prostate biopsy History of cystoscopy Hx of colonoscopy Social History Household Members: Spouse Housing: House Are you a primary child care associate to a significant other at home: No Do you presently have visiting nurse or other home services: No Alcohol intake: never Patient Tobacco Use Status: Never used Tobacco Smoked in Last 30 Days: No Second Hand Smoke Exposure: No Use of substances other than those prescribed or required for medical reasons: No Advance Directives: Yes Advance Directives on File: Yes Advance Directives Date on File: 05/22/22 service: No Current occupational status: retired Meds Allergies Allergy/AdvReac Type Severity Reaction Status Date / Time oxycodone [Percocet] AdvReac Intermediate face got Verified 07/11/22 13:17 really red Active Medications: Current Medications Sodium Chloride (Ns) 1,000 mls @ 999 mls/hr IV .Q1H1M LUCA Stop: 08/15/22 00:45 Pharmacy Consult (Consult Rx Perform Med Rec) 1 each MISCELLANE ONCE PRN PRN Reason: Consult order Home Medications Medication Instructions Recorded Confirmed Last Taken Type atorvastatin 40 mg tablet 1 tab PO BEDTIME 07/19/20 08/13/22 07/09/21 History cholecalciferol (vitamin D3) 50 1 cap PO DAILY 12/07/20 08/13/22 07/10/21 History mcg (2,000 unit) capsule riboflavin (vitamin B2) 100 mg 200 mg PO BID 01/05/21 08/13/22 07/10/21 History tablet magnesium 200 mg tablet 250 mg PO BID 05/14/21 08/13/22 07/10/21 History tamsulosin 0.4 mg capsule 1 cap PO BID 07/10/21 08/13/22 07/10/21 History levetiracetam 500 mg tablet 1,000 mg PO 3XD 05/17/22 08/13/22 05/22/22 History (Keppra) topiramate 25 mg tablet 50 mg PO BID 05/17/22 08/13/22 05/22/22 History amlodipine 2.5 mg tablet 2.5 mg PO DAILY 06/29/22 08/13/22 Unknown History Physical Exam Vital Signs and Narrative: Vital Signs: Last Vital Signs Temp 97.3 F 08/14/22 23:30 Pulse 57 08/14/22 23:30 Resp 18 08/14/22 23:30 BP 122/70 08/14/22 23:30 Pulse Ox 95 08/14/22 23:30 O2 Del Method 08/14/22 23:30 BMI result Body Mass Index 29.2 Results Labs CBC and Chem 7: 08/14/22 18:48 08/14/22 18:48 Labs: Laboratory Results - last 24 hr 08/14/22 08/14/22 08/14/22 18:47 18:47 18:47 MCV MCH MCHC RDW Plt Count MPV Immature Gran % (Auto) Neut % (Auto) Lymph % (Auto) [place] % (Auto) Eos % (Auto) Baso % (Auto) Lymph # (Auto) [place] # (Auto) Eos # (Auto) Baso # (Auto) Abs Immat Gran (auto) Absolute Neuts (auto) Absolute Nucleated RBC Nucleated RBC % (auto) PT 10.7 INR 0.9 Anion Gap Estim Creat Clear Calc Estimated GFR Random Glucose Calcium Magnesium Total Bilirubin AST ALT Alkaline Phosphatase Troponin I High Sens Total Protein Albumin Urine Color Urine Appearance Urine pH Ur Specific [place] Urine Protein Urine Glucose (UA) Urine Ketones Urine Blood Urine Nitrite Ur Leukocyte Esterase Ethyl Alcohol < 10 COVID-19 ([facility]) Negative COVID-19 Clin Com See Note 08/14/22 08/14/22 08/14/22 18:48 18:48 18:48 MCV 102.3 H MCH 33.9 H MCHC 33.1 RDW 13.2 Plt Count 219 MPV 10.2 Immature Gran % (Auto) 0.1 Neut % (Auto) 53.8 Lymph % (Auto) 34.1 [place] % (Auto) 9.4 Eos % (Auto) 1.9 Baso % (Auto) 0.7 Lymph # (Auto) 2.3 [place] # (Auto) 0.6 Eos # (Auto) 0.1 Baso # (Auto) 0.1 Abs Immat Gran (auto) 0.01 Absolute Neuts (auto) 3.6 Absolute Nucleated RBC 0.000 Nucleated RBC % (auto) 0.0 PT INR Anion Gap 11 L Estim Creat Clear Calc 74.8 Estimated GFR > 60 Random Glucose 88 Calcium 8.7 Magnesium 2.0 Total Bilirubin 1.0 AST 20 ALT 23 Alkaline Phosphatase 109 Troponin I High Sens < 3.5 Total Protein 6.2 L Albumin 3.5 Urine Color Urine Appearance Urine pH Ur Specific [place] Urine Protein Urine Glucose (UA) Urine Ketones Urine Blood Urine Nitrite Ur Leukocyte Esterase Ethyl Alcohol COVID-19 ([facility]) COVID-19 Clin Com 08/14/22 20:35 MCV MCH MCHC RDW Plt Count MPV Immature Gran % (Auto) Neut % (Auto) Lymph % (Auto) [place] % (Auto) Eos % (Auto) Baso % (Auto) Lymph # (Auto) [place] # (Auto) Eos # (Auto) Baso # (Auto) Abs Immat Gran (auto) Absolute Neuts (auto) Absolute Nucleated RBC Nucleated RBC % (auto) PT INR Anion Gap Estim Creat Clear Calc Estimated GFR Random Glucose Calcium Magnesium Total Bilirubin AST ALT Alkaline Phosphatase Troponin I High Sens Total Protein Albumin Urine Color Yellow Urine Appearance Clear Urine pH 5.5 Ur Specific [place] 1.020 Urine Protein Negative Urine Glucose (UA) Negative Urine Ketones Negative Urine Blood Negative Urine Nitrite Negative Ur Leukocyte Esterase Negative Ethyl Alcohol COVID-19 ([facility]) COVID-19 Clin Com Imaging Radiologist's Impressions: Impressions Brain MRI 08/14/22 17:59 IMPRESSION: No acute infarct or other acute intracranial abnormality. Quality VTE VTE Risk Level:: Medical - low VTE Device Contraindication: Treatment Not Indicated VTE Drug Contraindication: Treatment Not Indicated
[2022-08-15] MEDS: 0.9 % Sodium Chloride 1,000 ML 999 ML IV (00:05)
--- NOTE | 2022-08-15 00:38 | PC.NURSE ---
This RN spoke with pt's . informed of provider's plan to discharge tonight. stated she does not drive and daughter who does drive is not feeling well. This RN spoke with hand spring former regarding this, per kiln charger informed pt's we can assist in the transfer of pt into vehicle. pt's stated she will be coming to get pt with daughter
--- NOTE | 2022-08-15 01:37 | PC.NURSE ---
pt's at bedside at time of discharge. pt given discharge packet at time of discharge. pt verbalized understanding of discharge plan. pt assisted into family member's vehicle at time of discharge by this RN
== END 2022-08-15 01:39 | disposition home or self-care (01) ==
PROVIDERS: Physician Assistant; Emergency Provider Student in an Organized Health Care Education/Training Program
DX: R42 Dizziness and giddiness (principal); R51.9 Headache, unspecified; H53.8 Other visual disturbances; Z20.822 Contact with and (suspected) exposure to COVID-19; Z79.899 Other long term (current) drug therapy
CPT/HCPCS: 36415; 70551; 80053; 80177; 81003; 82077; 83735; 84484; 85025; 85610; 87635; 93005; 96361; 96365; 96375; 99285; J1200; J1953; J2270; J2765

== ENCOUNTER 2022-08-21 12:15 | Emergency (ER) | payer OTHER, SELFPAY ==
--- NOTE | ~2022-08-21 | XR_ITS ---
EXAMINATION: XR CHEST CLINICAL INFORMATION: Generalized weakness. COMPARISON: 08/12/2022 chest radiograph. TECHNIQUE: 2 views of the chest were obtained. FINDINGS: Low lung volumes and evaluation. The lungs are clear. There are no pleural effusions. The heart and mediastinal structures are unremarkable. XR/XR chest 2V IMPRESSION: No acute cardiopulmonary process.
[2022-08-21 12:34] VITALS: BP 146/84; PULSE 60; O2SAT 97
[2022-08-21 12:39] VITALS: BP 143/71; PULSE 59; RESP 18; TEMP 36.9; O2SAT 97; BMI 29.4
--- NOTE | 2022-08-21 13:12 | ECG_ITS ---
Test Reason : weakness Blood Pressure : / mmHG Vent. Rate : 059 BPM Atrial Rate : 059 BPM P-R Int : 160 ms QRS Dur : 108 ms QT Int : 466 ms P-R-T Axes : 024 -61 023 degrees QTc Int : 461 ms Sinus bradycardia Left anterior fascicular block Abnormal ECG When compared with ECG of 14-AUG-2022 19:09, No significant change was found Referred By: Rupinder Jernigan Electronically Signed By:DIPAK BROWNLEE MD
--- NOTE | 2022-08-21 13:28 | ED.WEAKNESS ---
HPI - Weakness General Chief complaint: Weakness Stated complaint: PLASCENCIA,WEAKNESS,UNABLE TO AMB Time Seen by Provider: 08/21/22 13:06 Source: patient Mode of arrival: EMS Limitations: no limitations History of Present Illness HPI Narrative: Patient is a 72-year-old male who presents to the emergency department for evaluation of generalized weakness, difficulty ambulating over the past 2 days. Symptoms have been progressively worsening. He reports feeling as though his knees are going to buckle or give out from underneath him. He has been using his pain as well but this is not helping. Denies any numbness or tingling to the extremities. Denies fevers, chills, upper respiratory symptoms, cough, shortness of breath, difficulty breathing, chest pain, palpitations, nausea, vomiting, abdominal pain, dysuria, urinary frequency. He states that he has been seen in the emergency department recently and treated for headaches and dizziness. Does currently have a headache reporting frontal pain 5/10, but no acute changes from prior headaches he was experiencing. Related Data Home Medications Medication Instructions Recorded Confirmed atorvastatin 40 mg tablet 1 tab PO BEDTIME 07/19/20 08/13/22 cholecalciferol (vitamin D3) 50 1 cap PO DAILY 12/07/20 08/13/22 mcg (2,000 unit) capsule riboflavin (vitamin B2) 100 mg 200 mg PO BID 01/05/21 08/13/22 tablet magnesium 200 mg tablet 250 mg PO BID 05/14/21 08/13/22 tamsulosin 0.4 mg capsule 1 cap PO BID 07/10/21 08/13/22 levetiracetam 500 mg tablet 1,000 mg PO 3XD 05/17/22 08/13/22 (Keppra) topiramate 25 mg tablet 50 mg PO BID 05/17/22 08/13/22 amlodipine 2.5 mg tablet 2.5 mg PO DAILY 06/29/22 08/13/22 Previous Rx's Medication Instructions Recorded tramadol 50 mg tablet 50 mg PO Q6H PRN pain #20 tabs 01/21/22 naproxen 500 mg tablet 500 mg PO BID PRN pain 10 days #20 05/24/22 tabs prednisone 2.5 mg tablet 2.5 mg PO BID 30 days #60 tabs 06/13/22 abiraterone 250 mg tablet 500 mg PO BEDTIME 90 days #180 tabs 07/07/22 meclizine 25 mg tablet 25 mg PO BID PRN dizziness #10 tabs 08/15/22 Allergies Allergy/AdvReac Type Severity Reaction Status Date / Time oxycodone [Percocet] AdvReac Intermediate face got Verified 07/11/22 13:17 really red Review of Systems Review of Systems: Constitutional: No weight loss. No fever. No chills. Positive weakness. No fatigue. Eye: No swelling. No redness. ENT: No sore throat. No rhinorrhea. No nasal congestion. No sore throat. No difficulty swallowing. Skin: No rash. No itching. Cardiovascular: No chest pain. No chest pressure. No palpitations. No pedal edema. Respiratory: No shortness of breath. No cough. No sputum production. Gastrointestinal: No anorexia. No nausea. No vomiting. No diarrhea. No abdominal pain. No blood in stool. Genitourinary: No burning micturition. No urinary frequency. No incontinence. Neurologic: Positive headache. No dizziness. No pre-syncope/ syncope. No unilateral weakness. No ataxia. No numbness. No tingling. No change in bowel or bladder control. Musculoskeletal: No muscle pain. No back pain. No joint pain. No stiffness. Yes all other systems are reviewed and are negative PMFSH Past Medical History Attestation statement: The following information was validated with the patient. 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 Elevated cholesterol Hematuria HTN (hypertension) Prostate CA Tremor Surgical History H/O prostate biopsy History of cystoscopy Hx of colonoscopy Social History Social History Household Members: Spouse Housing: House Are you a primary manager intensive care to a significant other at home: No Do you presently have visiting nurse or other home services: No Alcohol intake: never Patient Tobacco Use Status: Never used Tobacco Second Hand Smoke Exposure: No Advance Directives: Yes Advance Directives on File: Yes Advance Directives Date on File: 05/22/22 service: No Current occupational status: retired Physical Exam Vital Signs: Vital Signs: Last Vital Signs Temp 98 F 08/21/22 14:00 Pulse 66 08/21/22 14:00 Resp 18 08/21/22 14:00 BP 138/68 08/21/22 14:00 Pulse Ox 97 08/21/22 14:00 O2 Del Method 08/21/22 14:00 BMI result Body Mass Index 29.4 Appearance: Alert.?Oriented to person, place and time. No acute distress.?Normal affect. Eyes: Pupils equal, round and reactive to light.? EOMI. No nystagmus. ENT: Pharynx normal.?? Neck: Normal inspection.? Neck supple.?? CVS: Heart sounds normal. Normal heart rate and rhythm.? Pulses normal.?? Respiratory: No respiratory distress.? Lung sounds clear to auscultation bilaterally?? Abdomen: Soft and non-tender. Normoactive bowel sounds. Skin: Skin warm and dry.? Normal skin color.? Extremities: No lower extremity edema.? No calf ttp? Neuro: Moves all extremities spontaneously. Sensation intact bilaterally. CN II-XII intact. No focal neuro deficits. Course Course Course Narrative: Patient is a 72-year-old male with a past medical history of seizures, bladder cancer, recurrent urinary tract infection, prostate cancer with bony metastasis, hyperlipidemia, hypertension, migraines, prior CVA presents emergency department today for evaluation of generalized weakness. Patient was seen in the emergency department recently on 2 different occasions 08/12/2022 and 08/14/2022 with reports of headache and dizziness, during the first visit he was evaluated by Physical therapy with recommendations for visiting nurse services to be established in the home, case management was involved on his 2nd visit he was ultimately discharged home after having MRI, was given a new prescription for meclizine to help with dizziness. He was reportedly seen by his primary care provider last week and given a new prescription for tramadol to help with headaches as well. Regarding weakness will exclude infectious process or alternative causes for increased weakness recently. Will obtain CBC to evaluate for leukocytosis/ anemia, CMP to evaluate for abnormal electrolytes /abnormal renal function/ abnormal hepatic function, EKG and troponin to evaluate for ischemia/ACS. Chest x-ray to evaluate for consolidation/ infiltrate/ mass/ pulmonary congestion and Urinalysis. Patient may require referral to case management physical therapy for re-evaluation. Reevaluation(s) Reevaluation #1: CBC reveals a macrocytic anemia which is consistent with baseline, no leukocytosis. CMP overall unremarkable. COVID-19 testing is negative. Troponin <3.5, EKG reveals sinus bradycardia no acute ischemic findings. Chest x-ray reveals no acute cardiopulmonary process. Patient has ambulated to the bathroom, with unsteady gait, requiring staff assistance. Will refer patient to case management who so that he may have physical therapy evaluation assistance with safe disposition. Patient placed in physician observation at this time. Time: 14:43 [facility] - Weakness Medical Records Attestation: I reviewed the patient's medical records. Lab Data Attestation: I reviewed the patient's lab results. Result diagrams: 08/21/22 13:49 08/21/22 13:49 Labs: Lab Results 08/21/22 08/21/22 08/21/22 Range/Units 13:49 13:49 13:49 WBC 6.8 (4.8-10.8) X10*3/uL RBC 3.79 L (4.60-5.80) X10*6/uL Hgb 12.8 L (14.0-18.0) g/dl Hct 39.3 L (42.0-52.0) % MCV 103.7 H (80.0-98.0) fL MCH 33.8 H (27.0-33.0) pg MCHC 32.6 (31.0-36.0) g/dl RDW 13.0 (11.0-16.0) % Plt Count 233 (160-400) X10*3/uL MPV 10.3 (9.4-12.4) fL Immature Gran % (Auto) 0.3 (0.0-0.4) % Neut % (Auto) 58.5 (45-73) % Lymph % (Auto) 30.7 (20-40) % Jasper % (Auto) 7.7 (2-11) % Eos % (Auto) 1.8 (0-4) % Baso % (Auto) 1.0 (0-2) % Lymph # (Auto) 2.1 (1.2-4.9) X10*3/uL Jasper # (Auto) 0.5 (0.1-1.2) X10*3/uL Eos # (Auto) 0.1 (0.0-0.4) X10*3/uL Baso # (Auto) 0.1 (0.0-0.2) X10*3/uL Abs Immat Gran (auto) 0.02 (0.00-0.03) X10*3/uL Absolute Neuts (auto) 4.0 (2.0-8.3) x10*3/uL Absolute Nucleated RBC 0.000 (0.0-0.012) X10*3/uL Nucleated RBC % (auto) 0.0 (0.0-0.2) /100WBC Sodium 143 (135-145) mmol/L Potassium 4.7 (3.3-5.1) mmol/L Chloride 108 (96-108) mmol/L Carbon Dioxide 25 (22-29) mmol/L Anion Gap 15 (12-20) BUN 39 H (9-16) mg/dL Creatinine 1.15 (0.5-1.4) mg/dL Estim Creat Clear Calc 72.6 Estimated GFR > 60 Random Glucose 88 (60-115) mg/dL Calcium 9.5 D (8.4-10.2) mg/dL Magnesium 2.1 (1.6-2.6) mg/dL Total Bilirubin 1.2 H (0.0-1.0) mg/dL AST 21 (5-37) U/L ALT 21 (0-40) U/L Alkaline Phosphatase 106 (39-117) U/L Troponin I High Sens < 3.5 (<3.5-35.0) ng/L Total Protein 6.9 (6.5-8.0) g/dL Albumin 3.9 (3.5-5.0) g/dL Urine Color Urine Appearance Urine pH (5.0-9.0) Ur Specific Genoa (1.005-1.025) Urine Protein (Neg-Trace) mg/dL Urine Glucose (UA) (Negative) mg/dL Urine Ketones (Negative) mg/dL Urine Blood (Negative) Urine Nitrite (Negative) Ur Leukocyte Esterase (Negative) COVID-19 (GENEVA) (Negative) COVID-19 Clin Com 08/21/22 08/21/22 Range/Units 13:49 14:53 WBC (4.8-10.8) X10*3/uL RBC (4.60-5.80) X10*6/uL Hgb (14.0-18.0) g/dl Hct (42.0-52.0) % MCV (80.0-98.0) fL MCH (27.0-33.0) pg MCHC (31.0-36.0) g/dl RDW (11.0-16.0) % Plt Count (160-400) X10*3/uL MPV (9.4-12.4) fL Immature Gran % (Auto) (0.0-0.4) % Neut % (Auto) (45-73) % Lymph % (Auto) (20-40) % Jasper % (Auto) (2-11) % Eos % (Auto) (0-4) % Baso % (Auto) (0-2) % Lymph # (Auto) (1.2-4.9) X10*3/uL Jasper # (Auto) (0.1-1.2) X10*3/uL Eos # (Auto) (0.0-0.4) X10*3/uL Baso # (Auto) (0.0-0.2) X10*3/uL Abs Immat Gran (auto) (0.00-0.03) X10*3/uL Absolute Neuts (auto) (2.0-8.3) x10*3/uL Absolute Nucleated RBC (0.0-0.012) X10*3/uL Nucleated RBC % (auto) (0.0-0.2) /100WBC Sodium (135-145) mmol/L Potassium (3.3-5.1) mmol/L Chloride (96-108) mmol/L Carbon Dioxide (22-29) mmol/L Anion Gap (12-20) BUN (9-16) mg/dL Creatinine (0.5-1.4) mg/dL Estim Creat Clear Calc Estimated GFR Random Glucose (60-115) mg/dL Calcium (8.4-10.2) mg/dL Magnesium (1.6-2.6) mg/dL Total Bilirubin (0.0-1.0) mg/dL AST (5-37) U/L ALT (0-40) U/L Alkaline Phosphatase (39-117) U/L Troponin I High Sens (<3.5-35.0) ng/L Total Protein (6.5-8.0) g/dL Albumin (3.5-5.0) g/dL Urine Color Yellow Urine Appearance Clear Urine pH 7.0 (5.0-9.0) Ur Specific Genoa 1.015 (1.005-1.025) Urine Protein Negative (Neg-Trace) mg/dL Urine Glucose (UA) Negative (Negative) mg/dL Urine Ketones Negative (Negative) mg/dL Urine Blood Negative (Negative) Urine Nitrite Negative (Negative) Ur Leukocyte Esterase Negative (Negative) COVID-19 (GENEVA) Negative (Negative) COVID-19 Clin Com See Note Imaging Data Chest x-ray: Radiologist's impression: XR/XR chest 2V IMPRESSION: No acute cardiopulmonary process. ? ECG Data Attestation: I personally reviewed and interpreted this ECG as follows: ECG interpretation date: 08/21/22 Prior ECG tracings: available for review Interpretation: Rate: 59 Rhythm:? Sinus bradycardia Normal P waves.? Normal DUNCAN.?? Normal QRS complex.?? ST T wave :? No ST elevation, no ST depression, no T-wave inversion? qTC: 461 prior studies:? July 2022 The study has been interpreted contemporaneously by me. Discharge Plan Discharge Clinical Impression: Generalized weakness Patient Disposition: Still a Patient Prescriptions: No Action prednisone 2.5 mg tablet 2.5 mg PO BID 30 Days Qty: 60 5RF abiraterone 250 mg tablet 500 mg PO BEDTIME 90 Days Qty: 180 3RF Rx Instructions: must be taken on empty stomach, at least 1 hr before or 2 hrs after a meal/food cholecalciferol (vitamin D3) 50 mcg (2,000 unit) capsule 1 cap PO DAILY magnesium 200 mg Tablet 250 mg PO BID atorvastatin 40 mg tablet 1 tab PO BEDTIME tamsulosin 0.4 mg capsule 1 cap PO BID tramadol 50 mg tablet 50 mg PO Q6H PRN (Reason: pain) Qty: 20 0RF levetiracetam [Keppra] 500 mg tablet 1,000 mg PO 3XD topiramate 25 mg tablet 50 mg PO BID naproxen 500 mg tablet 500 mg PO BID PRN (Reason: pain) 10 Days Qty: 20 0RF meclizine 25 mg tablet 25 mg PO BID PRN (Reason: dizziness) Qty: 10 0RF riboflavin (vitamin B2) 100 mg tablet 200 mg PO BID amlodipine 2.5 mg tablet 2.5 mg PO DAILY
--- OUTSIDE RECORDS SUMMARY | 2022-08-21 13:34 | XMS_ITS ---
:1950 Author Care Team Providers Name Role Phone JAMAL DELGADILLO 1ST FLOOR OTHER [phone] SVETLANA WOODRUFF MD Primary Care Provider [phone] Allergies Code Code System Name Reaction Severity [...] Malignant Tumor of Prostate; Fall Shanell Brown PAD MACHINE FEEDER: [address] [place] [address], Ph. 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 05/16/2021 Malignant Tumor of Prostate; Hyperlipide rashawn; Essential Hypertension; Fall Shanell Brown PAD MACHINE FEEDER: [address] [place] [address], Ph. Social History Tobacco Smoking Status Never [...]
[2022-08-21 13:55] LABS: MANUAL DIFF FLAG NO
[2022-08-21 13:58] LABS: Basophils Absolute Auto 0.1 X10*3/uL (0.0-0.2); Eosinophils Absolute Auto 0.1 X10*3/uL (0.0-0.4); Eosinophils Percent Auto 1.8 % (0-4); Hematocrit 39.3 % (42.0-52.0); Hemoglobin 12.8 g/dl (14.0-18.0); Imm Gran Abs Auto 0.02 X10*3/uL (0.00-0.03); Imm Gran Pct Auto 0.3 % (0.0-0.4); Lymphocytes Absolute Auto 2.1 X10*3/uL (1.2-4.9); Lymphocytes Percent Auto 30.7 % (20-40); Mean Corpuscular HGB Conc 32.6 g/dl (31.0-36.0); Mean Corpuscular Hemoglobin 33.8 pg (27.0-33.0); Mean Corpuscular Volume 103.7 fL (80.0-98.0); Mean Platelet Volume 10.3 fL (9.4-12.4); Monocytes Absolute Auto 0.5 X10*3/uL (0.1-1.2); Monocytes Percent Auto 7.7 % (2-11); Neutrophils Percent Auto 58.5 % (45-73); Platelet Count 233 X10*3/uL (160-400); Red Blood Count 3.79 X10*6/uL (4.60-5.80); White Blood Count 6.8 X10*3/uL (4.8-10.8)
[2022-08-21 14:00] VITALS: BP 138/68; PULSE 66; RESP 18; TEMP 36.6; O2SAT 97
--- NOTE | 2022-08-21 14:09 | PC.NURSE ---
PT AOX4 AMB WITH STEADY GAIT INDEPENDENT TO BR.
[2022-08-21 14:16] LABS: COVID-19 Test Negative (Negative); IDNOW Serial# 16C4AD1C
[2022-08-21 14:26] LABS: Potassium 4.7 mmol/L (3.3-5.1); Sodium 143 mmol/L (135-145)
[2022-08-21 14:27] LABS: Alanine Aminotransferase 21 U/L (0-40); Albumin Level 3.9 g/dL (3.5-5.0); Alkaline Phosphatase 106 U/L (39-117); Anion Gap 15 (12-20); Aspartate Amino Transferase 21 U/L (5-37); Bilirubin Total 1.2 mg/dL (0.0-1.0); Blood Urea Nitrogen 39 mg/dL (9-16); Calcium 9.5 mg/dL (8.4-10.2); Carbon Dioxide 25 mmol/L (22-29); Chloride 108 mmol/L (96-108); Creatinine Clr Calc Pharmacy 72.6; Estimated Glomerular Filt Rate > 60; Glucose Random 88 mg/dL (60-115); Magnesium 2.1 mg/dL (1.6-2.6); Total Protein 6.9 g/dL (6.5-8.0)
[2022-08-21 14:33] LABS: Troponin-I High Sensitivity < 3.5 ng/L (<3.5-35.0)
[2022-08-21 15:01] LABS: Appearance Urine Clear; Color Urine Yellow; Glucose Urine UA Negative (Negative); Leukocyte Esterase Urine Negative (Negative); Nitrite Urine Negative (Negative); Specific Gravity - Urine 1.015 (1.005-1.025); Urine Blood Negative (Negative); Urine Ketones Negative (Negative); Urine Protein Negative (Neg-Trace)
--- NOTE | 2022-08-21 17:49 | MHC.CM.ED ---
CM met with patient at request of Rupinder MCCLURE. Pt c/o weakness and feels like his legs are going to give out. Pt has bladder/prostate CA with mets to bone. Just completed 6 week course of chemo under care of Dr. Guillen on 08/01. Next appointment is September 21. Pt lives with his . Uses a cane and wheeled walker. Has VNA services through [facility]/. is working with [facility] to arrange for a [employer]ICOND[employer]CTOR DIES LOADER to help with his care. [employer] x3. (03/05/21, 04/02/21 & 10/09/21). HCP is on file..HCP/ Florencia Heathereri ([phone]). CM spoke with Florencia to verify services. Florencia tells CM that [facility] sent a nurse and PT to evaluate patient and that they recommended STR. Florencia understands that PT will see patient in the morning and make recommendations. Both patient and Florencia request [facility] as first choice and then STR in [place] or [place]. Referrals placed. CM to follow for discharge planning.
[2022-08-21 19:32] VITALS: BP 140/78; PULSE 68; TEMP 36.4; O2SAT 97
--- NOTE | 2022-08-21 19:32 | PC.NURSE ---
Care of patient assumed at 1900. He has just finished eating dinner. He is alert, oriented x3, and currently denies pain. He states he might be waiting to see a PT. Lives at home with his in [place]. He is able to move all extremities in stretcher and has been walking to the restroom per nursing report.
--- NOTE | 2022-08-21 21:01 | PHA.MEDREC ---
Pharmacy Consult ? Medication Reconciliation Pharmacy has completed the medication reconciliation.
[2022-08-21 22:26] VITALS: BP 138/74; PULSE 60; RESP 18; TEMP 37.1; O2SAT 97
[2022-08-22] VITALS (7 sets, daily range): BP systolic 121–147; BP diastolic 76–90; PULSE 61–115; RESP 16–18; TEMP 36.4–37; O2SAT 95–98
--- NOTE | 2022-08-22 09:00 | MHC.CM.ED ---
Addendum entered by Juli De Luna 08/22/22 12:19: [facility] doesn't have a bed today. Not sure if they will have a bed tomorrow. [facility] will have a bed tomorrow. Patient accepts bed offer. [facility] has been asked to go for insurance auth. Original Note: Patient remains in ER. Physical therapy eval completed. Short term rehab is recommended. [facility] is patient's [facility] choice. Clinical updates sent to facilities still following patient: [facility], [facility], [facility] and [facility]. Continue to [facility] for d/c needs.
[2022-08-22] MEDS: amLODIPine Besylate 2.5 MG TABLET PO (13:27)
[2022-08-22] MEDS: Topiramate 25 MG TABLET 50 MG PO ×2 (13:27→22:12)
[2022-08-22] MEDS: levETIRAcetam 1,000 MG TABLET 1000 MG PO ×2 (15:32→22:12)
--- NOTE | 2022-08-22 18:58 | PC.NURSE ---
PT TRANSFERRED TO HOSPITAL BED, REMAINS WEAK, UNSTABLE WHILE AMBULATING, REQUIRING ASSISTANCE. HAS BEEN IN NAD THROUGHOUT TODAY, VS WNL.
--- NOTE | 2022-08-22 22:09 | PC.NURSE ---
pt was assisted to the commode with nurse and tech for a BM, we got a walker to help the pt be steady on his feet but that does help he is very unsteady even with the walker and the 2 asst help, pt will benefit with the bedpan for safety for him and staff
[2022-08-22] MEDS: Tamsulosin HCL 0.4 MG CAPSULE PO (22:12)
[2022-08-22] MEDS: Atorvastatin Calcium 40 MG TABLET PO (22:12)
[2022-08-22] MEDS: predniSONE 2.5 MG TABLET PO (23:05)
[2022-08-23 06:08] VITALS: BP 117/79; PULSE 73; RESP 18; TEMP 36.2; O2SAT 100
[2022-08-23] MEDS: Tamsulosin HCL 0.4 MG CAPSULE PO (10:40)
[2022-08-23] MEDS: amLODIPine Besylate 2.5 MG TABLET PO (10:40)
[2022-08-23] MEDS: levETIRAcetam 1,000 MG TABLET 1000 MG PO (10:40)
[2022-08-23] MEDS: Topiramate 25 MG TABLET 50 MG PO (10:40)
[2022-08-23] MEDS: Cholecalciferol (Vitamin D3) 25 MCG TABLET 50 MCG PO (10:40)
[2022-08-23] MEDS: predniSONE 2.5 MG TABLET PO (11:50)
--- NOTE | 2022-08-23 12:34 | MHC.CM.ED ---
Patient remains in ER. Insurance auth has been obtained by [facility]. Patient can leave at 2pm. Mickey HYLTON booked. Med nec with chart. Attempted to make patient aware. Patient currently sleeping. Attempted to notify patient's , Florencia, via telephone at [phone]. Left message explaining above. Milagro OROZCO and Ra AVALOS aware. Continue to monitor for d/c needs.
== END 2022-08-23 14:08 | disposition skilled nursing facility (03) ==
PROVIDERS: Nurse Practitioner Family; Emergency Provider Emergency Medicine; PCP Family Medicine
DX: R53.1 Weakness (principal); R51.9 Headache, unspecified; I10 Essential (primary) hypertension; E78.5 Hyperlipidemia, unspecified; Z79.02 Long term (current) use of antithrombotics/antiplatelets; Z79.899 Other long term (current) drug therapy; Z20.822 Contact with and (suspected) exposure to COVID-19
CPT/HCPCS: 71046; 80053; 81003; 83735; 84484; 85025; 87635; 93005; 97162; 99285

== ENCOUNTER 2022-09-10 10:23 | Inpatient (IN) | payer OTHER, SELFPAY ==
--- NOTE | ~2022-09-10 | CT_ITS ---
EXAMINATION: CT ANGIOGRAM OF THE CHEST WITH CONTRAST (CT PULMONARY ANGIOGRAM FOR PE) CLINICAL INFORMATION: Reason for Exam syncope, COVID +, elevated d dimer COMPARISON: Chest CT from 07/10/2021 and CXR from 08/21/2022. TECHNIQUE: Prior to contrast administration, noncontrast localization images were obtained. Subsequently, multidetector volumetric imaging was performed from the thoracic inlet to below the diaphragms following the administration of 65 mL Omnipaque 350 intravenous contrast. No contrast reaction reported. Sagittal, coronal, and MIP oblique sagittal reformatted images were obtained on the CT workstation, uploaded to PACS, and reviewed. This CT examination was performed using dose optimization techniques as appropriate, variously including the following: *Automated exposure control *Adjustment of mA and/or kV according to patient size (this includes techniques or standardized protocols for targeted exams where dose is matched to indication/reason for exam; i.e. extremities or head) *Use of iterative reconstruction technique DLP: Total exam dose-length product 454 mGy-cm FINDINGS: LUNGS AND PLEURA: Trachea and central airways are widely patent and normal in caliber. Mild atelectasis of the lingula and lower lobes. A very small focus of airspace opacity is present in the lateral right lower lobe. Also, there is an airspace opacity in the superior segment of the right lower lobe which could represent inflammation/infarction from pulmonary embolism, although underlying pneumonia in this area is not excluded. No pleural effusion or pneumothorax. QUALITY OF STUDY/CONTRAST BOLUS: Satisfactory. CARDIOVASCULAR: Pulmonary arteries are normal in size. A linear, branching filling defect from acute embolism is observed within the right pulmonary artery with involvement of posterior and anterior segments of the right upper lobe and right middle lobe branch (with extension into segmental/subsegmental branches). Also, embolism involves the branch to the superior segment of the right lower lobe. The heart size is normal. No inward bowing of the interventricular septum. No pericardial effusion. No aortic aneurysm or dissection. MEDIASTINUM/LOWER NECK: No mediastinal mass. The esophagus and thyroid gland are unremarkable. LYMPHATICS: No pathologic sized axillary, hilar or mediastinal lymph nodes. UPPER ABDOMEN: No reflux of contrast into the IVC. Adrenal glands are normal. Diverticula of the partially visualized ascending colon. Small calcified stone or calcified polyp of the gallbladder fundus. OSSEOUS STRUCTURES: No acute osseous abnormality. No fracture or subluxation of the degenerated spine. Diffuse idiopathic skeletal hyperostosis as manifest by extensive flowing anterior ligament ossification of the thoracic spine. CT/CT angio chest PE protocol IMPRESSION: * Acute embolism of the right pulmonary artery with involvement of right upper lobe, middle lobe and superior segment of right lower lobe. No imaging evidence of right heart strain. * Airspace opacity in the superior segment right lower lobe could represent infarction and inflammation from pulmonary embolism or pneumonia. No pleural effusion. The critical test result was discussed with BAILEY Lauren, at 4:00 PM on 09/10/2022 and it was ascertained that the content and the importance of the findings was understood at the time of the direct communication.
[2022-09-10 10:39] VITALS: BP 127/91; BP 130/82; PULSE 77; PULSE 82; RESP 14; TEMP 36.7; O2SAT 98; BMI 27.2
[2022-09-10 10:47] VITALS: BP 127/82; PULSE 77; RESP 20; TEMP 37; O2SAT 97
--- OUTSIDE RECORDS SUMMARY | 2022-09-10 10:50 | XMS_ITS ---
:1950 Author Care Team Providers Name Role Phone JAMAL DELGADILLO 1ST FLOOR OTHER [phone] SVETLANA WOODRUFF MD Primary Care Provider [phone] Allergies Code Code System Name Reaction Severity [...] Malignant Tumor of Prostate; Fall Shanell Brown SLEEVE WHEEL MAKER: [address] [place] [address], Ph. 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 05/16/2021 Malignant Tumor of Prostate; Hyperlipide rashawn; Essential Hypertension; Fall Shanell Brown SLEEVE WHEEL MAKER: [address] [place] [address], Ph. Social History Tobacco Smoking Status Never [...]
--- NOTE | 2022-09-10 11:06 | ECG_ITS ---
Test Reason : Seizure Blood Pressure : / mmHG Vent. Rate : 083 BPM Atrial Rate : 083 BPM P-R Int : 156 ms QRS Dur : 102 ms QT Int : 390 ms P-R-T Axes : 016 -66 004 degrees QTc Int : 458 ms Normal sinus rhythm Left anterior fascicular block RSR' or QR pattern in V1 suggests right ventricular conduction delay Intra-ventricular conduction delay Abnormal ECG When compared with ECG of 21-AUG-2022 14:47, Heart rate has increased Referred By: Flory Juan Electronically Signed By:DIPAK BROWNLEE MD
--- NOTE | 2022-09-10 11:08 | ED_ITS ---
HPI - Seizure General Chief Complaint: Seizure Stated Complaint: seizure Time Seen by Provider: 09/10/22 10:34 Source: patient and EMS Mode of arrival: EMS Limitations: no limitations History of Present Illness HPI Narrative: 72-year-old male history of of seizures on?multiple medications, bladder cancer intravesicular chemo, recurrent UTI, prostate cancer with bony mets, HLD, HTN, weakness, migraines, prior stroke?presents having witnessed seizure by a visiting nurse. Per report from EMS patient was released yesterday from [facility] after being there for short-term rehab. He was sitting at his table today when the visiting nurse was there. He was noted to have a period of unresponsiveness with heavy breathing described as absent seizure with no fall out of the chair, no head strike, no incontinence of urine. Unclear how long this was for. Patient reports last seizure was several weeks ago. Patient reports he has been compliant with medications. Denies any missed doses. No recent illnesses. No recent changes in his medication. Per EMS postictal on arrival. Here he is alert and oriented. c/o headache Hade an MRI on August 14 which showed no acute infarct or acute intracranial abnormality Seizure History: Yes Place: Home Related Data Home Medications Medication Instructions Recorded Confirmed atorvastatin 40 mg tablet 1 tab PO BEDTIME 07/19/20 09/10/22 cholecalciferol (vitamin D3) 50 1 cap PO DAILY 12/07/20 09/10/22 mcg (2,000 unit) capsule tamsulosin 0.4 mg capsule 1 cap PO BID 07/10/21 09/10/22 levetiracetam 500 mg tablet 1,000 mg PO TID 05/17/22 09/10/22 (Keppra) amlodipine 2.5 mg tablet 2.5 mg PO DAILY 06/29/22 09/10/22 topiramate 50 mg tablet 50 mg PO BID 08/21/22 09/10/22 Previous Rx's Medication Instructions Recorded tramadol 50 mg tablet 50 mg PO Q6H PRN pain #20 tabs 01/21/22 prednisone 2.5 mg tablet 2.5 mg PO BID 30 days #60 tabs 06/13/22 abiraterone 250 mg tablet 500 mg PO BEDTIME 90 days #180 tabs 07/07/22 meclizine 25 mg tablet 25 mg PO BID PRN dizziness #10 tabs 08/15/22 Allergies Allergy/AdvReac Type Severity Reaction Status Date / Time oxycodone [Percocet] AdvReac Intermediate face got Verified 07/11/22 13:17 really red Review of Systems Review of Systems: Yes all other systems are reviewed and are negative Constitutional: Constitutional: Reports no additional constitutional complaints, Denies body ache(s), Denies chills, Denies fever(s), Reports headache(s) and Denies weakness Eyes: Eyes: Reports no additional eye complaints and Denies change in vision ENT: Reports system reviewed and no additional complaints, except as documented, Denies dizziness, Reports headache(s), Denies nasal congestion, Denies nasal discharge and Denies neck pain Cardiovascular: Cardiovascular: Reports no additional cardiovascular complaints, Denies chest pain, Denies leg edema and Denies dyspnea Respiratory: Respiratory: Reports no additional respiratory complaints, Denies cough and Denies dyspnea Gastrointestinal: Gastrointestinal: Reports no additional gastrointestinal complaints, Denies abdominal pain, Denies diarrhea, Denies nausea and Denies vomiting Genitourinary: Genitourinary: Denies urinary incontinence Musculoskeletal: Musculoskeletal: Reports no additional musculoskeletal complaints, Denies back pain, Denies arthralgias, Denies joint swelling, Denies neck pain, Denies numbness and Denies tingling Integumentary/Breasts: Skin/Breast: Reports system reviewed and no additional complaints, except as docu and Denies rash Neurologic: Reports system reviewed and no additional complaints, except as documented, Denies Abnormal speech present, Denies dizziness, Reports headache(s), Denies numbness, Reports seizure-like activity, Denies tingling and Denies weakness PMFSH Past Medical History Attestation statement: The following information was validated with the patient. 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 Elevated cholesterol Hematuria HTN (hypertension) Prostate CA Tremor Surgical History H/O prostate biopsy History of cystoscopy Hx of colonoscopy Social History Social History Household Members: Spouse Housing: House Are you a primary pediatric care coordinator to a significant other at home: No Do you presently have visiting nurse or other home services: No Alcohol intake: never Patient Tobacco Use Status: Never used Tobacco Smoked in Last 30 Days: No Second Hand Smoke Exposure: No Use of substances other than those prescribed or required for medical reasons: No Advance Directives: Yes Advance Directives on File: Yes Advance Directives Date on File: 05/22/22 service: No Current occupational status: retired Physical Exam Vital Signs: Vital Signs: Last Vital Signs Temp 98.6 F 09/10/22 10:47 Pulse 75 09/10/22 14:22 Resp 20 09/10/22 14:22 BP 109/77 09/10/22 14:22 Pulse Ox 97 09/10/22 14:22 O2 Del Method 09/10/22 14:22 BMI result Body Mass Index 27.2 Const: General: cooperative, healthy appearing, comfortable and no acute distress Orientation/consciousness: patient oriented x3 Limitations: no limitations HEENT: Head: Yes normal to inspection Ears: hearing grossly normal bilaterally General nose exam: Normal external nose present Face and sinus: Yes normal facial exam Mouth: Normal oral and palatal mucosa present Throat: Yes posterior oropharynx normal Eyes: General: appearance normal, both eyes and all related structures Pupils: Equal, round and reactive pupils present Neck: Neck: Yes normal visual inspection Chest: Chest palpation & inspection: normal inspection of the chest Resp: Effort & Inspection: normal respiratory effort Auscultation: clear to auscultation bilaterally Cardio: Rate: regular rate Rhythm: regular rhythm Peripheral pulses: Peripheral pulses 2+ throughout GI: Inspection: Yes normal to inspection Palpation (GI): Soft to palpation and nontender Auscultation: normal bowel sounds Back/Spine/Pelvis: Thoracic/Lumbar Spine: thoracic and lumbar spine normal to inspection Skin: General skin exam: no rashes or lesions noted Neuro: General: patient oriented x3, moves all extremities, no focal motor deficits and normal sensation to monofilament Cranial nerves: Yes CN's II-XII intact bilaterally, Yes Equal, round and reactive pupils present, Yes Bilaterally intact EOM present, Yes Nystagmus not present, Yes Normal facial strength present and Yes Midline tongue present Cognition (Neuro): normal cognition Speech: No Abnormal speech present Motor exam (neuro): 5/5 motor strength present throughout Sensory Exam: Normal double simultaneous stimulation for sensation Extrem: General: Yes normal to inspection, Yes no pedal edema and Yes no calf tenderness Course Course Course Narrative: COVID screen is positive. No hypoxia or tachypnea. Lactic acid is normal. ?seizure versus syncopal episode at home. Will need to rule out PE. Patient had recently prolonged immobilization. Will check D-dimer Reevaluation(s) Reevaluation #1: 1345-D dimer elevated. Will check CTA Reevaluation #2: 1600-CTA positive for right been mainstem pulmonary artery emboli with multiple emboli noted on the right lobe with ? area of infarction. Patient will be admitted. Reevaluation #3: 1615-Spoke to Madiha MCCLURE who accepted admission. We agreed on lovenox 1mg/kg SQ for AC choice. Called and updated on POC Medications Administered Discontinued Medications Generic Name Dose Route Start Last Admin Trade Name Freq PRN Reason Stop Dose Admin Iohexol 100 ml 09/10/22 15:21 09/10/22 15:22 Iohexol 350 Mg/Ml 100 Ml Infus..Btl IV 09/10/22 15:22 65 ml ONCE ONE Administration MDM - Seizure MDM Narrative Medical decision making narrative: 72-year-old male with a history of seizure disorder here with witnessed absent seizure at home with postictal state. Patient now alert and oriented x3. Normal neuro exam. Complaining of headache. Patient denies any recent illnesses. Patient denies any changes in medications or compliance issue. There was no head strike. This was witnessed by home care nurse. Will check labs, EKG, UA, COVID Medical Records Attestation: I reviewed the patient's medical records. Lab Data Attestation: I reviewed the patient's lab results. Result diagrams: 09/10/22 12:03 09/10/22 12:03 Labs: Lab Results 09/10/22 09/10/22 09/10/22 Range/Units 11:51 11:53 12:03 WBC 10.6 (4.8-10.8) X10*3/uL RBC 4.06 L (4.60-5.80) X10*6/uL Hgb 13.3 L (14.0-18.0) g/dl Hct 39.7 L (42.0-52.0) % MCV 97.8 (80.0-98.0) fL MCH 32.8 (27.0-33.0) pg MCHC 33.5 (31.0-36.0) g/dl RDW 12.0 (11.0-16.0) % Plt Count 242 (160-400) X10*3/uL MPV 10.6 (9.4-12.4) fL Immature Gran % (Auto) 0.4 (0.0-0.4) % Neut % (Auto) 78.3 H (45-73) % Lymph % (Auto) 12.8 L (20-40) % Dane % (Auto) 8.1 (2-11) % Eos % (Auto) 0.2 (0-4) % Baso % (Auto) 0.2 (0-2) % Lymph # (Auto) 1.4 (1.2-4.9) X10*3/uL Dane # (Auto) 0.9 (0.1-1.2) X10*3/uL Eos # (Auto) 0.0 (0.0-0.4) X10*3/uL Baso # (Auto) 0.0 (0.0-0.2) X10*3/uL Abs Immat Gran (auto) 0.04 H (0.00-0.03) X10*3/uL Absolute Neuts (auto) 8.3 (2.0-8.3) x10*3/uL Absolute Nucleated RBC 0.000 (0.0-0.012) X10*3/uL Nucleated RBC % (auto) 0.0 (0.0-0.2) /100WBC PT INR D-Dimer High Sensitivty NG/ML Sodium (135-145) mmol/L Potassium (3.3-5.1) mmol/L Chloride (96-108) mmol/L Carbon Dioxide (22-29) mmol/L Anion Gap (12-20) BUN (9-16) mg/dL Creatinine (0.5-1.4) mg/dL Estim Creat Clear Calc Estimated GFR Random Glucose (60-115) mg/dL Lactic Acid (0.5-2.0) mmol/L Calcium (8.4-10.2) mg/dL Magnesium (1.6-2.6) mg/dL Total Bilirubin (0.0-1.0) mg/dL Direct Bilirubin (0.0-0.5) mg/dL AST (5-37) U/L ALT (0-40) U/L Alkaline Phosphatase (39-117) U/L Troponin I High Sens (<3.5-35.0) ng/L Total Protein (6.5-8.0) g/dL Albumin (3.5-5.0) g/dL Urine Color Dark Yellow Urine Appearance Cloudy Urine pH 5.5 (5.0-9.0) Ur Specific [place] 1.025 (1.005-1.025) Urine Protein 30 (1+) H (Neg-Trace) mg/dL Urine Glucose (UA) Negative (Negative) mg/dL Urine Ketones 80 (Negative) mg/dL Urine Blood Negative (Negative) Urine Nitrite Negative (Negative) Ur Leukocyte Esterase Negative (Negative) Urine RBC 0-2 (0-2) /HPF Urine WBC 0-5 (0-5) /HPF Ur Squamous Epith Cells 3-5 (0-2) /HPF Urine Bacteria None Seen (None Seen) Hyaline Casts 6-10 (0-2) /LPF COVID-19 ([facility]) Positive A (Negative) COVID-19 Clin Com See Note 09/10/22 09/10/22 09/10/22 Range/Units 12:03 12:03 12:03 WBC (4.8-10.8) X10*3/uL RBC (4.60-5.80) X10*6/uL Hgb (14.0-18.0) g/dl Hct (42.0-52.0) % MCV (80.0-98.0) fL MCH (27.0-33.0) pg MCHC (31.0-36.0) g/dl RDW (11.0-16.0) % Plt Count (160-400) X10*3/uL MPV (9.4-12.4) fL Immature Gran % (Auto) (0.0-0.4) % Neut % (Auto) (45-73) % Lymph % (Auto) (20-40) % Dane % (Auto) (2-11) % Eos % (Auto) (0-4) % Baso % (Auto) (0-2) % Lymph # (Auto) (1.2-4.9) X10*3/uL Dane # (Auto) (0.1-1.2) X10*3/uL Eos # (Auto) (0.0-0.4) X10*3/uL Baso # (Auto) (0.0-0.2) X10*3/uL Abs Immat Gran (auto) (0.00-0.03) X10*3/uL Absolute Neuts (auto) (2.0-8.3) x10*3/uL Absolute Nucleated RBC (0.0-0.012) X10*3/uL Nucleated RBC % (auto) (0.0-0.2) /100WBC PT INR D-Dimer High Sensitivty NG/ML Sodium 138 (135-145) mmol/L Potassium 3.9 (3.3-5.1) mmol/L Chloride 104 (96-108) mmol/L Carbon Dioxide 24 (22-29) mmol/L Anion Gap 14 (12-20) BUN 37 H (9-16) mg/dL Creatinine 1.12 (0.5-1.4) mg/dL Estim Creat Clear Calc 67.3 Estimated GFR > 60 Random Glucose 99 (60-115) mg/dL Lactic Acid 1.6 (0.5-2.0) mmol/L Calcium 9.2 (8.4-10.2) mg/dL Magnesium 2.1 (1.6-2.6) mg/dL Total Bilirubin 1.3 H (0.0-1.0) mg/dL Direct Bilirubin 0.5 (0.0-0.5) mg/dL AST 27 (5-37) U/L ALT 27 (0-40) U/L Alkaline Phosphatase 98 (39-117) U/L Troponin I High Sens 5.8 (<3.5-35.0) ng/L Total Protein 6.8 (6.5-8.0) g/dL Albumin 3.5 (3.5-5.0) g/dL Urine Color Urine Appearance Urine pH (5.0-9.0) Ur Specific [place] (1.005-1.025) Urine Protein (Neg-Trace) mg/dL Urine Glucose (UA) (Negative) mg/dL Urine Ketones (Negative) mg/dL Urine Blood (Negative) Urine Nitrite (Negative) Ur Leukocyte Esterase (Negative) Urine RBC (0-2) /HPF Urine WBC (0-5) /HPF Ur Squamous Epith Cells (0-2) /HPF Urine Bacteria (None Seen) Hyaline Casts (0-2) /LPF COVID-19 ([facility]) (Negative) COVID-19 Clin Com 09/10/22 09/10/22 Range/Units 12:46 12:46 WBC (4.8-10.8) X10*3/uL RBC (4.60-5.80) X10*6/uL Hgb (14.0-18.0) g/dl Hct (42.0-52.0) % MCV (80.0-98.0) fL MCH (27.0-33.0) pg MCHC (31.0-36.0) g/dl RDW (11.0-16.0) % Plt Count (160-400) X10*3/uL MPV (9.4-12.4) fL Immature Gran % (Auto) (0.0-0.4) % Neut % (Auto) (45-73) % Lymph % (Auto) (20-40) % Dane % (Auto) (2-11) % Eos % (Auto) (0-4) % Baso % (Auto) (0-2) % Lymph # (Auto) (1.2-4.9) X10*3/uL Dane # (Auto) (0.1-1.2) X10*3/uL Eos # (Auto) (0.0-0.4) X10*3/uL Baso # (Auto) (0.0-0.2) X10*3/uL Abs Immat Gran (auto) (0.00-0.03) X10*3/uL Absolute Neuts (auto) (2.0-8.3) x10*3/uL Absolute Nucleated RBC (0.0-0.012) X10*3/uL Nucleated RBC % (auto) (0.0-0.2) /100WBC PT Cancelled 10.9 INR Cancelled 1.0 D-Dimer High Sensitivty 4403 NG/ML Sodium (135-145) mmol/L Potassium (3.3-5.1) mmol/L Chloride (96-108) mmol/L Carbon Dioxide (22-29) mmol/L Anion Gap (12-20) BUN (9-16) mg/dL Creatinine (0.5-1.4) mg/dL Estim Creat Clear Calc Estimated GFR Random Glucose (60-115) mg/dL Lactic Acid (0.5-2.0) mmol/L Calcium (8.4-10.2) mg/dL Magnesium (1.6-2.6) mg/dL Total Bilirubin (0.0-1.0) mg/dL Direct Bilirubin (0.0-0.5) mg/dL AST (5-37) U/L ALT (0-40) U/L Alkaline Phosphatase (39-117) U/L Troponin I High Sens (<3.5-35.0) ng/L Total Protein (6.5-8.0) g/dL Albumin (3.5-5.0) g/dL Urine Color Urine Appearance Urine pH (5.0-9.0) Ur Specific [place] (1.005-1.025) Urine Protein (Neg-Trace) mg/dL Urine Glucose (UA) (Negative) mg/dL Urine Ketones (Negative) mg/dL Urine Blood (Negative) Urine Nitrite (Negative) Ur Leukocyte Esterase (Negative) Urine RBC (0-2) /HPF Urine WBC (0-5) /HPF Ur Squamous Epith Cells (0-2) /HPF Urine Bacteria (None Seen) Hyaline Casts (0-2) /LPF COVID-19 ([facility]) (Negative) COVID-19 Clin Com Imaging Data CT scan - chest: Attestation: I personally reviewed and interpreted this imaging study as follows: Radiologist's impression: [address] [address] [address] Scan Report Signed Patient: Kody Tinajero MR#: [id number] : 1950 Acct:[id number] Age/Sex: 72 / M ADM Date: 09/10/22 Loc: .ED Attending Dr: Ordering Physician: Flory Juan NP Date of Service: 09/10/22 Procedure(s): CT angio chest PE protocol Accession Number(s): [id number] cc: Flory Juan 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 TECHNIQUE: Prior to contrast administration, noncontrast localization images were obtained. Subsequently, multidetector volumetric imaging was performed from the thoracic inlet to below the diaphragms following the administration of 65 mL Omnipaque 350 intravenous contrast. No contrast reaction reported. Sagittal, coronal, and MIP oblique sagittal reformatted images were obtained on the CT workstation, uploaded to PACS, and reviewed.? This CT examination was performed using dose optimization techniques as appropriate, variously including the following: *Automated exposure control *Adjustment of mA and/or kV according to patient size (this includes techniques or standardized protocols for targeted exams where dose is matched to indication/reason for exam; i.e. extremities or head) *Use of iterative reconstruction technique DLP: Total exam dose-length product 454 mGy-cm FINDINGS: LUNGS AND PLEURA: Trachea and central airways are widely patent and normal in caliber. Mild atelectasis of the lingula and lower lobes. A very small focus of airspace opacity is present in the lateral right lower lobe. Also, there is an airspace opacity in the superior segment of the right lower lobe which could represent inflammation/infarction from pulmonary embolism, although underlying pneumonia in this area is not excluded. No pleural effusion or pneumothorax. QUALITY OF STUDY/CONTRAST BOLUS: Satisfactory.? CARDIOVASCULAR: Pulmonary arteries are normal in size. A linear, branching filling defect from acute embolism is observed within the right pulmonary artery with involvement of posterior and anterior segments of the right upper lobe and right middle lobe branch (with extension into segmental/subsegmental branches). Also, embolism involves the branch to the superior segment of the right lower lobe. The heart size is normal. No inward bowing of the interventricular septum. No pericardial effusion. No aortic aneurysm or dissection. MEDIASTINUM/LOWER NECK: No mediastinal mass. The esophagus and thyroid gland are unremarkable. LYMPHATICS: No pathologic sized axillary, hilar or mediastinal lymph nodes. UPPER ABDOMEN: No reflux of contrast into the IVC. Adrenal glands are normal. Diverticula of the partially visualized ascending colon. Small calcified stone or calcified polyp of the gallbladder fundus. OSSEOUS STRUCTURES: No acute osseous abnormality. No fracture or subluxation of the degenerated spine. Diffuse idiopathic skeletal hyperostosis as manifest by extensive flowing anterior ligament ossification of the thoracic spine.? CT/CT angio chest PE protocol IMPRESSION: *? Acute embolism of the right pulmonary artery with involvement of right upper lobe, middle lobe and superior segment of right lower lobe. No imaging evidence of right heart strain. *? Airspace opacity in the superior segment right lower lobe could represent infarction and inflammation from pulmonary embolism or pneumonia. No pleural effusion. ? ECG Data Attestation: I personally reviewed and interpreted this ECG as follows: ECG interpretation date: 09/10/22 ECG interpretation time: 12:27 Interpretation: Normal sinus rhythm with rate 83, normal PA, normal QRS, normal QT Discharge Plan Discharge Clinical Impression: COVID, Pulmonary emboli Patient Disposition: Admitted As Inpatient
[2022-09-10 12:14] LABS: Appearance Urine Cloudy; Color Urine Dark Yellow; Glucose Urine UA Negative (Negative); Leukocyte Esterase Urine Negative (Negative); Nitrite Urine Negative (Negative); PH 5.5 (5.0-9.0); Specific Gravity - Urine 1.025 (1.005-1.025); UMIC TRIGGER UACC YES; Urine Blood Negative (Negative); Urine Ketones 80 mg/dL (Negative); Urine Protein 30 (1+) mg/dL (Neg-Trace)
[2022-09-10 12:24] LABS: Lactic Acid 1.6 mmol/L (0.5-2.0)
[2022-09-10 12:26] LABS: Bacteria Urine None Seen (None Seen); RBC Urine 0-2 /HPF (0-2); WBC Urine 0-5 /HPF (0-5)
[2022-09-10 12:27] LABS: COVID-19 Test Positive (Negative); IDNOW Serial# BCCEAD1C
[2022-09-10 12:30] LABS: Alanine Aminotransferase 27 U/L (0-40); Albumin Level 3.5 g/dL (3.5-5.0); Alkaline Phosphatase 98 U/L (39-117); Anion Gap 14 (12-20); Aspartate Amino Transferase 27 U/L (5-37); Bilirubin Direct 0.5 mg/dL (0.0-0.5); Bilirubin Total 1.3 mg/dL (0.0-1.0); Blood Urea Nitrogen 37 mg/dL (9-16); Calcium 9.2 mg/dL (8.4-10.2); Carbon Dioxide 24 mmol/L (22-29); Chloride 104 mmol/L (96-108); Creatinine Clr Calc Pharmacy 67.3; Estimated Glomerular Filt Rate > 60; Glucose Random 99 mg/dL (60-115); Magnesium 2.1 mg/dL (1.6-2.6); Potassium 3.9 mmol/L (3.3-5.1); Sodium 138 mmol/L (135-145); Total Protein 6.8 g/dL (6.5-8.0)
[2022-09-10 12:37] LABS: Troponin-I High Sensitivity 5.8 ng/L (<3.5-35.0)
[2022-09-10 13:12] LABS: Prothrombin Time 10.9 SEC (10.0-13.1)
[2022-09-10 13:20] LABS: D Dimer High Sensitivity 4403 NG/ML
[2022-09-10 14:01] LABS: MANUAL DIFF FLAG NO
[2022-09-10 14:02] LABS: Basophils Percent Auto 0.2 % (0-2); Eosinophils Percent Auto 0.2 % (0-4); Hematocrit 39.7 % (42.0-52.0); Hemoglobin 13.3 g/dl (14.0-18.0); Imm Gran Abs Auto 0.04 X10*3/uL (0.00-0.03); Imm Gran Pct Auto 0.4 % (0.0-0.4); Lymphocytes Absolute Auto 1.4 X10*3/uL (1.2-4.9); Lymphocytes Percent Auto 12.8 % (20-40); Mean Corpuscular HGB Conc 33.5 g/dl (31.0-36.0); Mean Corpuscular Hemoglobin 32.8 pg (27.0-33.0); Mean Corpuscular Volume 97.8 fL (80.0-98.0); Mean Platelet Volume 10.6 fL (9.4-12.4); Monocytes Absolute Auto 0.9 X10*3/uL (0.1-1.2); Monocytes Percent Auto 8.1 % (2-11); Neutrophils Absolute Auto 8.3 x10*3/uL (2.0-8.3); Neutrophils Percent Auto 78.3 % (45-73); Platelet Count 242 X10*3/uL (160-400); Red Blood Count 4.06 X10*6/uL (4.60-5.80); White Blood Count 10.6 X10*3/uL (4.8-10.8)
[2022-09-10 14:22] VITALS: BP 109/77; PULSE 75; RESP 20; O2SAT 97
[2022-09-10] MEDS: iohexoL 350 MG/ML 100 ML INFUS..BTL IV (15:22)
[2022-09-10 16:16] LABS: Partial Thromboplastin Time 22.8 SEC (26.0-36.4)
--- NOTE | 2022-09-10 16:30 | PM.IMHP ---
History of Present Illness Date of Service: 09/10/22 Chief Complaint: syncope 72-year-old man presented to the ER after an episode of syncope at home. He was released from short-term rehab yesterday. Apparently he was sitting at his table when he was meeting with visiting nurse and had a period of unresponsiveness, heavy breathing and staring. Just prior to that he had gotten up and waqlked to the kitchen and felt dizzy. He did not have any trauma or fall, no incontinence of bowel or bladder. Apparently his last seizure was several weeks ago and patient reports being compliant with his medications. In the ER, all his labs are within acceptable limits, he is hemodynamically stable with normal blood pressure. D-dimer was checked and was found to be elevated therefore CTA was obtained which did show multiple pulmonary emboli in the right upper, middle and lower lobe. He was given a dose of therapeutic Lovenox in the ER. He will be admitted for further management and treatment of acute syncope and pulmonary embolus. Review of Systems Review of Systems: Denies any recent fever chills or decrease in appetite respiratory denies any shortness of breath coverage production cardiovascular denies chest pain gastrointestinal denies any dysphagia abdominal pain nausea vomiting or diarrhea genitourinary denies any dysuria frequency or hematuria musculoskeletal denies any joint pain or swelling neuropsych denies any weakness or seizures all other systems reviewed are negative PENDING SALE TO [facility] Medical History (Updated 09/11/22 @ 08:17 by Madiha Wheatley NP) Bladder cancer Bladder tumor Bone cancer 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 Dizziness Elevated cholesterol Hematuria HTN (hypertension) Prostate CA Tremor Pertinent family history: Denies cardiac disease Surgical History H/O prostate biopsy History of cystoscopy Hx of colonoscopy Social History Household Members: Spouse Housing: House Are you a primary senior care specialist to a significant other at home: No Do you presently have visiting nurse or other home services: No Alcohol intake: never Patient Tobacco Use Status: Never used Tobacco Smoked in Last 30 Days: No Second Hand Smoke Exposure: No Use of substances other than those prescribed or required for medical reasons: No Advance Directives: Yes Advance Directives on File: Yes Advance Directives Date on File: 05/22/22 service: No Current occupational status: retired Meds Allergies Allergy/AdvReac Type Severity Reaction Status Date / Time oxycodone [Percocet] AdvReac Intermediate face got Verified 07/11/22 13:17 really red Active Medications: Current Medications Acetaminophen (Acetaminophen 325 Mg Tablet) 650 mg PO Q6H PRN PRN Reason: Pain, Mild (Pain Scale 1-3) Enoxaparin Sodium (Enoxaparin Sodium 100 Mg/Ml Syringe) 90 mg SUBCUT Q12H LUCA Ondansetron HCl (Ondansetron Hcl 4 Mg/2 Ml Vial) 4 mg IVPUSH Q8H PRN PRN Reason: Nausea and Vomiting Pharmacy Consult (Consult Rx Perform Med Rec) 1 each MISCELLANE ONCE PRN PRN Reason: Consult order Sodium Chloride (0.9 % Sodium Chloride Flush 3 Ml Syringe) 3 ml IVFLUSH QSHIFT COUNTS INCLUDE 234 BEDS AT THE [facility] Home Medications Medication Instructions Recorded Confirmed Last Taken Type atorvastatin 40 mg tablet 1 tab PO BEDTIME 07/19/20 09/10/22 09/10/22 History cholecalciferol (vitamin D3) 50 1 cap PO DAILY 12/07/20 09/10/22 09/10/22 History mcg (2,000 unit) capsule tamsulosin 0.4 mg capsule 1 cap PO BID 07/10/21 09/10/22 09/10/22 History levetiracetam 500 mg tablet 1,000 mg PO TID 05/17/22 09/10/22 09/10/22 History (Keppra) amlodipine 2.5 mg tablet 2.5 mg PO DAILY 06/29/22 09/10/22 09/10/22 History topiramate 50 mg tablet 50 mg PO BID 08/21/22 09/10/22 09/10/22 History magnesium 250 mg tablet 250 mg PO BID 09/10/22 09/10/22 09/10/22 History riboflavin (vitamin B2) 100 mg 100 mg PO BID 09/10/22 09/10/22 09/10/22 History tablet Physical Exam Vital Signs and Narrative: Vital Signs: Last Vital Signs Temp 98.6 F 09/10/22 10:47 Pulse 75 09/10/22 14:22 Resp 20 09/10/22 14:22 BP 109/77 09/10/22 14:22 Pulse Ox 97 09/10/22 14:22 O2 Del Method 09/10/22 14:22 BMI result Body Mass Index 27.2 Appearing in no acute distress head is normocephalic atraumatic eyes pupils are PERRLA sclera is anicteric mouth throat mucous membranes are intact and moist neck is supple no lymphadenopathy, no JVD noted lung sounds are clear to auscultation heart regular rate rhythm, clear S1, S2 positive bowel sounds, abdomen is soft, nontender neuro patient is alert x3, no focal deficits Results Labs CBC and Chem 7: 09/11/22 05:51 09/11/22 05:51 Labs: Laboratory Results - last 24 hr 09/10/22 09/10/22 09/10/22 11:51 11:53 12:03 MCV 97.8 MCH 32.8 MCHC 33.5 RDW 12.0 Plt Count 242 MPV 10.6 Immature Gran % (Auto) 0.4 Neut % (Auto) 78.3 H Lymph % (Auto) 12.8 L [place] % (Auto) 8.1 Eos % (Auto) 0.2 Baso % (Auto) 0.2 Lymph # (Auto) 1.4 [place] # (Auto) 0.9 Eos # (Auto) 0.0 Baso # (Auto) 0.0 Abs Immat Gran (auto) 0.04 H Absolute Neuts (auto) 8.3 Absolute Nucleated RBC 0.000 Nucleated RBC % (auto) 0.0 PT INR APTT D-Dimer High Sensitivty Anion Gap Estim Creat Clear Calc Estimated GFR Random Glucose Lactic Acid Calcium Magnesium Total Bilirubin Direct Bilirubin AST ALT Alkaline Phosphatase Troponin I High Sens Total Protein Albumin Urine Color Dark Yellow Urine Appearance Cloudy Urine pH 5.5 Ur Specific [place] 1.025 Urine Protein 30 (1+) H Urine Glucose (UA) Negative Urine Ketones 80 Urine Blood Negative Urine Nitrite Negative Ur Leukocyte Esterase Negative Urine RBC 0-2 Urine WBC 0-5 Ur Squamous Epith Cells 3-5 Urine Bacteria None Seen Hyaline Casts 6-10 COVID-19 (GENEVA) Positive A COVID-19 Clin Com See Note 09/10/22 09/10/22 09/10/22 12:03 12:03 12:03 MCV MCH MCHC RDW Plt Count MPV Immature Gran % (Auto) Neut % (Auto) Lymph % (Auto) [place] % (Auto) Eos % (Auto) Baso % (Auto) Lymph # (Auto) [place] # (Auto) Eos # (Auto) Baso # (Auto) Abs Immat Gran (auto) Absolute Neuts (auto) Absolute Nucleated RBC Nucleated RBC % (auto) PT INR APTT D-Dimer High Sensitivty Anion Gap 14 Estim Creat Clear Calc 67.3 Estimated GFR > 60 Random Glucose 99 Lactic Acid 1.6 Calcium 9.2 Magnesium 2.1 Total Bilirubin 1.3 H Direct Bilirubin 0.5 AST 27 ALT 27 Alkaline Phosphatase 98 Troponin I High Sens 5.8 Total Protein 6.8 Albumin 3.5 Urine Color Urine Appearance Urine pH Ur Specific [place] Urine Protein Urine Glucose (UA) Urine Ketones Urine Blood Urine Nitrite Ur Leukocyte Esterase Urine RBC Urine WBC Ur Squamous Epith Cells Urine Bacteria Hyaline Casts COVID-19 (GENEVA) COVID-19 [place] 09/10/22 09/10/22 12:46 12:46 MCV MCH MCHC RDW Plt Count MPV Immature Gran % (Auto) Neut % (Auto) Lymph % (Auto) [place] % (Auto) Eos % (Auto) Baso % (Auto) Lymph # (Auto) [place] # (Auto) Eos # (Auto) Baso # (Auto) Abs Immat Gran (auto) Absolute Neuts (auto) Absolute Nucleated RBC Nucleated RBC % (auto) PT Cancelled 10.9 INR Cancelled 1.0 APTT 22.8 L D-Dimer High Sensitivty 4403 Anion Gap Estim Creat Clear Calc Estimated GFR Random Glucose Lactic Acid Calcium Magnesium Total Bilirubin Direct Bilirubin AST ALT Alkaline Phosphatase Troponin I High Sens Total Protein Albumin Urine Color Urine Appearance Urine pH Ur Specific [place] Urine Protein Urine Glucose (UA) Urine Ketones Urine Blood Urine Nitrite Ur Leukocyte Esterase Urine RBC Urine WBC Ur Squamous Epith Cells Urine Bacteria Hyaline Casts COVID-19 (GENEVA) COVID-19 Clin Com Imaging Radiologist's Impressions: Impressions Chest CTA 09/10/22 15:28 IMPRESSION: * Acute embolism of the right pulmonary artery with involvement of right upper lobe, middle lobe and superior segment of right lower lobe. No imaging evidence of right heart strain. * Airspace opacity in the superior segment right lower lobe could represent infarction and inflammation from pulmonary embolism or pneumonia. No pleural effusion. The critical test result was discussed with BAILEY Lauren, at 4:00 PM on 09/10/2022 and it was ascertained that the content and the importance of the findings was understood at the time of the direct communication. Assessment and Plan (1) Pulmonary emboli: Status: Acute Plan 72-year-old man with history of seizures, prostate cancer admitted after a syncopal episode possibly related to a seizure. Subsequently also found to have multiple pulmonary emboli. Syncope Possibly secondary to seizure, likely not related to PE as there was no heart strain [place] [facility] [place] Neurology consultation Acute pulmonary embolus CTA showed right pulmonary artery involvement of right upper, middle and superior segment of right lower lobe without evidence of heart strain. It also appears that he may have an area of and infarction as well to the right lower lobe. Will treat with therapeutic Lovenox will likely transition to OAC upon discharge Hematology consultation COVID-19 positive Seems asymptomatic, no hypoxia or signs of sepsis, monitor Seizure disorder Seizure precautions Will continue Keppra and Topamax History of prostate cancer with metastatic disease currently being treated Hematology consultation, high risk of PE with malignancy BPH Continue tamsulosin ? chronic dizziness on Meclizine DVT prophylaxis with Lovenox Attending Dr. Canela Full code Patient necessitating to inpatient midnights for treatment of acute pulmonary embolus and episode of syncope requiring further workup including neurology consultation Quality Stroke Does the patient have a stroke diagnosis?: No VTE Prior VTE?: No VTE Risk Level:: Medical - moderate - high VTE Device Contraindication: Treatment Not Indicated VTE Drug Contraindication: N/A - Med Ordered
--- OUTSIDE RECORDS SUMMARY | 2022-09-10 16:35 | XMS_ITS ---
:1950 Author Care Team Providers Name Role Phone JAMAL DELGADILLO 1ST FLOOR OTHER [phone] SVETLANA WOODRUFF MD Primary Care Provider [phone] Allergies Code Code System Name Reaction Severity [...] Malignant Tumor of Prostate; Fall Shanell Brown [employer]: [address] [place] [address], Ph. 05/23/2021 Asthenia Due to Disease; Essential Hyper tension Shanell Brown [employer]: [address] [place] [address], Ph. 05/19/2021 Asthenia Due to Disease; Malignant Tumor of Prostate; Hyperlipidemia; Essential Hypertension; Fall; Acute Urinary Tract Infection Caridad Miller MD: [address] [place] [address], Ph. 05/16/2021 Malignant Tumor of Prostate; Hyperlipide rashawn; Essential Hypertension; Fall Shanell Brown [employer]: [address] [place] [address], Ph. Social History Tobacco Smoking Status Never [...]
--- NOTE | 2022-09-10 16:36 | PHA.MEDREC ---
Pharmacy Consult ? Medication Reconciliation Pharmacy has completed the medication reconciliation. Patient had a med list that match claim history. Ludmila PalmaD
[2022-09-10] MEDS: Enoxaparin Sodium 100 MG/ML SYRINGE 90 MG SUBCUT (17:12)
[2022-09-10 17:23] LABS: Hematocrit 41.3 % (42.0-52.0); Hemoglobin 13.8 g/dl (14.0-18.0); Mean Corpuscular HGB Conc 33.4 g/dl (31.0-36.0); Mean Corpuscular Hemoglobin 32.9 pg (27.0-33.0); Mean Corpuscular Volume 98.3 fL (80.0-98.0); Mean Platelet Volume 10.1 fL (9.4-12.4); Platelet Count 253 X10*3/uL (160-400); White Blood Count 9.2 X10*3/uL (4.8-10.8)
[2022-09-10 17:30] LABS: Prothrombin Time 10.9 SEC (10.0-13.1)
[2022-09-10 17:33] LABS: Partial Thromboplastin Time 25.6 SEC (26.0-36.4)
[2022-09-10 17:36] VITALS: BP 131/71; PULSE 88; RESP 19; TEMP 36.6; O2SAT 98
[2022-09-10 21:23] VITALS: BP 133/87; PULSE 81; RESP 16; O2SAT 97
[2022-09-10 21:53] VITALS: BP 132/83; PULSE 80; RESP 25; TEMP 36.9; O2SAT 95
[2022-09-11] VITALS (7 sets, daily range): BP systolic 108–126; BP diastolic 72–86; PULSE 71–162; RESP 14–18; TEMP 37.1–37.2; O2SAT 94–97
[2022-09-11] MEDS: Enoxaparin Sodium 100 MG/ML SYRINGE 90 MG SUBCUT ×2 (05:53→18:42)
[2022-09-11 06:24] LABS: MANUAL DIFF FLAG NO
[2022-09-11 06:28] LABS: Basophils Absolute Auto 0.1 X10*3/uL (0.0-0.2); Basophils Percent Auto 0.6 % (0-2); Eosinophils Absolute Auto 0.1 X10*3/uL (0.0-0.4); Eosinophils Percent Auto 0.9 % (0-4); Hematocrit 40.3 % (42.0-52.0); Hemoglobin 13.5 g/dl (14.0-18.0); Imm Gran Abs Auto 0.03 X10*3/uL (0.00-0.03); Imm Gran Pct Auto 0.4 % (0.0-0.4); Lymphocytes Absolute Auto 2.5 X10*3/uL (1.2-4.9); Lymphocytes Percent Auto 30.1 % (20-40); Mean Corpuscular HGB Conc 33.5 g/dl (31.0-36.0); Mean Corpuscular Hemoglobin 33.2 pg (27.0-33.0); Mean Platelet Volume 10.5 fL (9.4-12.4); Monocytes Absolute Auto 0.7 X10*3/uL (0.1-1.2); Monocytes Percent Auto 8.4 % (2-11); Neutrophils Absolute Auto 4.9 x10*3/uL (2.0-8.3); Neutrophils Percent Auto 59.6 % (45-73); Platelet Count 256 X10*3/uL (160-400); Red Blood Count 4.07 X10*6/uL (4.60-5.80); White Blood Count 8.1 X10*3/uL (4.8-10.8)
[2022-09-11 07:02] LABS: Anion Gap 14 (12-20); Blood Urea Nitrogen 37 mg/dL (9-16); Carbon Dioxide 24 mmol/L (22-29); Chloride 106 mmol/L (96-108); Creatinine Clr Calc Pharmacy 77.7; Estimated Glomerular Filt Rate > 60; Glucose Random 72 mg/dL (60-115); Potassium 4.2 mmol/L (3.3-5.1); Sodium 140 mmol/L (135-145)
--- NOTE | 2022-09-11 08:30 | P.CNNE_ITS ---
History of Present Illness Data of Consult Service Date: 09/11/22 Primary Care Provider: Eric Dinh MD [facility] Reason for consult: Epilepsy 72 years old man with complex partial seizure disorder probably related to ischemic microvascular disease of brain. His seizures included few seconds to few minutes of staring and unresponsiveness. He was brought to hospital with somewhat similar episode. He did not have any recollection of what happened except saying that he had a seizure. Review of Systems Review of Systems: He was found positive for COVID. 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 Dizziness Elevated cholesterol Hematuria HTN (hypertension) Prostate CA Tremor Surgical History Surgical History H/O prostate biopsy History of cystoscopy Hx of colonoscopy Social History Social History Household Members: Spouse Housing: House Are you a primary career development specialist to a significant other at home: No Do you presently have visiting nurse or other home services: No Alcohol intake: never Patient Tobacco Use Status: Never used Tobacco Smoked in Last 30 Days: No Second Hand Smoke Exposure: No Use of substances other than those prescribed or required for medical reasons: No Advance Directives: Yes Advance Directives on File: Yes Advance Directives Date on File: 05/22/22 service: No Current occupational status: retired Meds Allergies Allergy/AdvReac Type Severity Reaction Status Date / Time oxycodone [Percocet] AdvReac Intermediate face got Verified 07/11/22 13:17 really red Active Medications: Current Medications Acetaminophen (Acetaminophen 325 Mg Tablet) 650 mg PO Q6H PRN PRN Reason: Pain, Mild (Pain Scale 1-3) Amlodipine Besylate (Amlodipine Besylate 2.5 Mg Tablet) 2.5 mg PO DAILY LUCA; Protocol Atorvastatin Calcium (Atorvastatin Calcium 40 Mg Tablet) 40 mg PO BEDTIME [facility]CA Enoxaparin Sodium (Enoxaparin Sodium 100 Mg/Ml Syringe) 90 mg SUBCUT Q12H LUCA Last Admin: 09/11/22 05:53 Dose: 90 mg Levetiracetam (Levetiracetam 1,000 Mg Tablet) 1,000 mg PO TID LUCA Meclizine HCl (Meclizine Hcl 25 Mg Tablet) 25 mg PO BID PRN PRN Reason: dizziness Non-Formulary Medication (Abiraterone) 500 mg PO BEDTIME [facility] Ondansetron HCl (Ondansetron Hcl 4 Mg/2 Ml Vial) 4 mg IVPUSH Q8H PRN PRN Reason: Nausea and Vomiting Pharmacy Consult (Consult Rx Perform Med Rec) 1 each MISCELLANE ONCE PRN PRN Reason: Consult order Prednisone (Prednisone 2.5 Mg Tablet) 2.5 mg PO BID [facility] Sodium Chloride (0.9 % Sodium Chloride Flush 3 Ml Syringe) 3 ml IVFLUSH QSHIFT [facility] Last Admin: 09/11/22 01:28 Dose: Not Given Tamsulosin HCl (Tamsulosin Hcl 0.4 Mg Capsule) 0.4 mg PO BID [facility] Topiramate (Topiramate 25 Mg Tablet) 50 mg PO BID [facility] Vitamin D (Cholecalciferol (Vitamin D3) 25 Mcg Tablet) 50 mcg PO DAILY [facility] Home Medications Medication Instructions Recorded Confirmed Last Taken Type atorvastatin 40 mg tablet 1 tab PO BEDTIME 07/19/20 09/10/22 09/10/22 History cholecalciferol (vitamin D3) 50 1 cap PO DAILY 12/07/20 09/10/22 09/10/22 History mcg (2,000 unit) capsule tamsulosin 0.4 mg capsule 1 cap PO BID 07/10/21 09/10/22 09/10/22 History levetiracetam 500 mg tablet 1,000 mg PO TID 05/17/22 09/10/22 09/10/22 History ([place]) amlodipine 2.5 mg tablet 2.5 mg PO DAILY 06/29/22 09/10/22 09/10/22 History topiramate 50 mg tablet 50 mg PO BID 08/21/22 09/10/22 09/10/22 History magnesium 250 mg tablet 250 mg PO BID 09/10/22 09/10/22 09/10/22 History riboflavin (vitamin B2) 100 mg 100 mg PO BID 09/10/22 09/10/22 09/10/22 History tablet Physical Exam Vital Signs: Vital Signs: Last Vital Signs Temp 98.9 F 09/11/22 07:31 Pulse 73 09/11/22 07:31 Resp 14 09/11/22 07:31 BP 111/74 09/11/22 07:31 Pulse Ox 96 09/11/22 07:31 O2 Del Method 09/11/22 07:31 BMI result Body Mass Index 27.2 Neuro: Other: He is alert and awake with normal spontaneity of speech fluency comprehension and affect. There was no obvious focal arm or leg weakness. Plantars were flexor with trace reflexes. Face was symmetrical. Visual trujillo are full. Results Labs CBC & Chem 7: 09/11/22 05:51 09/11/22 05:51 Labs: Short CBC 09/10/22 09/10/22 09/11/22 Range/Units 12:03 17:17 05:51 WBC 10.6 9.2 8.1 (4.8-10.8) X10*3/uL Hgb 13.3 L 13.8 L 13.5 L (14.0-18.0) g/dl Hct 39.7 L 41.3 L 40.3 L (42.0-52.0) % Plt Count 242 253 256 (160-400) X10*3/uL BMP 09/10/22 09/11/22 12:03 05:51 Sodium 138 140 Potassium 3.9 4.2 Chloride 104 106 Carbon Dioxide 24 24 BUN 37 H 37 H Creatinine 1.12 0.97 Calcium 9.2 9.0 Liver Function 09/10/22 Range/Units 12:03 Total Bilirubin 1.3 H (0.0-1.0) mg/dL Direct Bilirubin 0.5 (0.0-0.5) mg/dL AST 27 (5-37) U/L ALT 27 (0-40) U/L Alkaline Phosphatase 98 (39-117) U/L Albumin 3.5 (3.5-5.0) g/dL Urine 09/10/22 Range/Units 11:51 Urine Color Dark Yellow Urine Appearance Cloudy Urine pH 5.5 (5.0-9.0) Ur Specific [place] 1.025 (1.005-1.025) Urine Protein 30 (1+) H (Neg-Trace) mg/dL Urine Glucose (UA) Negative (Negative) mg/dL His noncontrast MRI of brain did not reveal any acute abnormality. As previously seen, moderately severe chronic microvascular ischemic changes and chronic moderate atrophy was noted. His levetiracetam level was 94. Assessment and Plan (1) Seizure disorder: Status: Acute 72 years old man with epilepsy comprise of complex partial seizure disorder related to microvascular ischemic disease. His seizures included few seconds to minutes of staring and unresponsiveness. He has been taking relatively high dose of levetiracetam in his level was high. He was also taking topiramate 50 mg twice a day, which was partly added due to headaches or migraine. My recommendation is to decrease levetiracetam to 500 mg 2 twice a day and increase dose of topiramate to 100 mg twice a day. Procedures Date of Service Date of Service: 09/11/22
[2022-09-11] MEDS: Topiramate 25 MG TABLET 50 MG PO (08:45)
[2022-09-11] MEDS: levETIRAcetam 1,000 MG TABLET 1000 MG PO ×2 (08:45→20:58)
[2022-09-11] MEDS: amLODIPine Besylate 2.5 MG TABLET PO (08:46)
[2022-09-11] MEDS: Cholecalciferol (Vitamin D3) 25 MCG TABLET 50 MCG PO (08:47)
[2022-09-11] MEDS: Tamsulosin HCL 0.4 MG CAPSULE PO ×2 (08:47→20:57)
--- NOTE | 2022-09-11 09:00 | MHC.CM.PN ---
Patient is covid positive and not reachable by phone (no cell phone and not yet assigned to a room); CM spoke with /HCP/Florencia @ [phone] and addressed IMM with her (original to be mailed certified letter to Florencia and a copy has been placed on the chart).Patient lives in an apartment with his and he uses both a cane and a walker to assist with mobility. Patient's Daughter and Grandson live in the apartment above Patient. Patient was recently dc'd from STR @ [facility] and returning there for additional STR vs home with new VNA pending PT eval is the tentative dc plan. CM has initiated and will follow for dc planning. Patient has received Moderna/Covid vax x3 and PCP is Dr. Eric Dinh.
--- NOTE | 2022-09-11 09:06 | PC.NURSE ---
Pt is alert/oriented. Pt denies any acute sx at this time. Breathing easy with sat 97% on room air. Skin pwd. Noted with small amt of yellow diarrhea. Speaking full sentences.
--- NOTE | 2022-09-11 10:02 | PC.NURSE ---
Orthos completed by tech, pt noted with table BP however HR up to 150s during and pt became dizzy. Improved now, MD Bran aware.
[2022-09-11] MEDS: 0.9 % Sodium Chloride Flush 3 ML SYRINGE IVFLUSH (10:37)
[2022-09-11] MEDS: predniSONE 2.5 MG TABLET PO ×2 (10:38→20:58)
[2022-09-11] MEDS: 0.9 % Sodium Chloride 1,000 ML 100 ML IVCONT (12:19)
--- NOTE | 2022-09-11 13:28 | P.CNHO_ITS ---
Subjective - Subjective Chief complaint: None reported Patient: new to practice Consult date: 09/11/22 Primary Care Provider: Eric Dinh MD Medical Summary: diagnosis: Right pulmonary emboli HPI - Consult Narrative Reason for consult: pulmonary emboli Narrative: Kody Tinajero is a 72 year old male with history of metastatic prostate cancer in superficial bladder cancer managed by Dr. Maier, presenting with s yncopal episode. He has been in [facility] halfway because of frequent falls which he says is related to weakness from cancer. His legs feel weak all the time and he has had a few falls. He was just discharged home, his and nurse witnessed syncopal episode associated with seizure-like activity. He was [place] [facility] where further workup revealed elevated D- dimer, CT angiogram showed multiple pulmonary emboli in the right lung. This is his 1st episode of pulmonary embolism. There is no family history. He has been started on Lovenox. He denies any complaints such as pleuritic chest pain, shortness of breath or cough. Although he has had some falls he denies any trauma to his legs or swelling or calf tenderness. He has a history of seizure disorder and is on seizure medications. For his metastatic prostate cancer he is on abiraterone and prednisone. He says he was diagnosed with COVID-19 infection about a week ago. He did not have any respiratory symptoms. Review of Systems - Constitutional Reports as per HPI, Denies fatigue, Denies fever(s), Reports frequent falls, Denies lack of energy, Denies night sweats - Cardiovascular Reports no additional cardiovascular complaints - Respiratory Reports no additional respiratory complaints - Gastrointestinal Reports no additional gastrointestinal complaints - Neurologic Reports no additional neurologic complaints, Denies abnormal speech, Denies dizziness, Reports headache(s), Denies numbness, Reports seizure-like activity, Denies tingling, Denies weakness Oncology Screenings - ECOG Performance Status ECOG Performance Status: [facility] Medical History: Medical History (Last Updated 09/11/22 @ 08:17 by Madiha Wheatley NP) Bladder cancer Bladder tumor Bone cancer 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 Dizziness Elevated cholesterol Hematuria HTN (hypertension) Prostate CA Tremor Surgical History: Surgical History (Last Reviewed 09/10/22 @ 11:15 by Flory Juan NP) H/O prostate biopsy History of cystoscopy Hx of colonoscopy Social History: Social History (Last Reviewed 09/10/22 @ 11:15 by Flory Juan NP) Living Situation History: Household Members: Spouse Housing: House Are you a primary day care attendant to a significant other at home: No Do you presently have visiting nurse or other home services: No Tobacco History: Patient Tobacco Use Status: Never used Tobacco Smoked in Last 30 Days: No Second Hand Smoke Exposure: No Substance Use History: Use of substances other than those prescribed or required for medical reasons : No Advance Directives: Advance Directives: Yes Advance Directives on File: Yes Advance Directives Date on File: 05/22/22 Occupation Assessmet: service: No Current occupational status: retired Home Medications and Allergies Current Medications: Current Medications Acetaminophen (Acetaminophen 325 Mg Tablet) 650 mg PO Q6H PRN PRN Reason: Pain, Mild (Pain Scale 1-3) Amlodipine Besylate (Amlodipine Besylate 2.5 Mg Tablet) 2.5 mg PO DAILY [facility]; Protocol Last Admin: 09/11/22 08:46 Dose: 2.5 mg Atorvastatin Calcium (Atorvastatin Calcium 40 Mg Tablet) 40 mg PO BEDTIME [facility] Enoxaparin Sodium (Enoxaparin Sodium 100 Mg/Ml Syringe) 90 mg SUBCUT Q12H [facility] Last Admin: 09/11/22 05:53 Dose: 90 mg Sodium Chloride (Ns) 1,000 mls @ 100 mls/hr IVCONT .Q10H [facility] Stop: 09/11/22 21:44 Last Admin: 09/11/22 12:19 Dose: 100 mls/hr Levetiracetam (Levetiracetam 1,000 Mg Tablet) 1,000 mg PO TID [facility] Last Admin: 09/11/22 08:45 Dose: 1,000 mg Meclizine HCl (Meclizine Hcl 25 Mg Tablet) 25 mg PO BID PRN PRN Reason: dizziness Non-Formulary Medication (Abiraterone) 500 mg PO BEDTIME [facility] Ondansetron HCl (Ondansetron Hcl 4 Mg/2 Ml Vial) 4 mg IVPUSH Q8H PRN PRN Reason: Nausea and Vomiting Pharmacy Consult (Consult Rx Perform Med Rec) 1 each MISCELLANE ONCE PRN PRN Reason: Consult order Prednisone (Prednisone 2.5 Mg Tablet) 2.5 mg PO BID [facility] Last Admin: 09/11/22 10:38 Dose: 2.5 mg Sodium Chloride (0.9 % Sodium Chloride Flush 3 Ml Syringe) 3 ml IVFLUSH QSHIFT [facility] Last Admin: 09/11/22 10:37 Dose: 3 ml Tamsulosin HCl (Tamsulosin Hcl 0.4 Mg Capsule) 0.4 mg PO BID [facility] Last Admin: 09/11/22 08:47 Dose: 0.4 mg Topiramate (Topiramate 25 Mg Tablet) 50 mg PO BID [facility] Last Admin: 09/11/22 08:45 Dose: 50 mg Vitamin D (Cholecalciferol (Vitamin D3) 25 Mcg Tablet) 50 mcg PO DAILY [facility] Last Admin: 09/11/22 08:47 Dose: 50 mcg Home Medications Medication Instructions Recorded Confirmed Type atorvastatin 40 mg tablet 1 tab PO BEDTIME 07/19/20 09/10/22 History cholecalciferol (vitamin D3) 50 1 cap PO DAILY 12/07/20 09/10/22 History mcg (2,000 unit) capsule tamsulosin 0.4 mg capsule 1 cap PO BID 07/10/21 09/10/22 History levetiracetam 500 mg tablet 1,000 mg PO TID 05/17/22 09/10/22 History (Keppra) amlodipine 2.5 mg tablet 2.5 mg PO DAILY 06/29/22 09/10/22 History topiramate 50 mg tablet 50 mg PO BID 08/21/22 09/10/22 History magnesium 250 mg tablet 250 mg PO BID 09/10/22 09/10/22 History riboflavin (vitamin B2) 100 mg 100 mg PO BID 09/10/22 09/10/22 History tablet Allergies Allergy/AdvReac Type Severity Reaction Status Date / Time oxycodone [Percocet] AdvReac Intermediate face got Verified 07/11/22 13:17 really red Physical Exam Vital signs: Vital Signs Temp 98.9 F 09/11/22 07:31 Pulse 162 H 09/11/22 09:36 Resp 18 09/11/22 09:03 BP 117/84 09/11/22 09:36 Pulse Ox 97 09/11/22 09:03 O2 Del Method 09/11/22 09:03 Intake & Output 09/10/22 09/11/22 09/11/22 18:59 06:59 18:59 Other: Urine Urinal Urine Color Yellow Weight 91.1 kg Weight 91.1 kg - Constitutional Present: no acute distress, average body habitus - Routine HEENT Exam Head: Present: normal inspection Eye: Present: EOMI - Routine Neck Exam Present: supple. Absent: lymphadenopathy - Routine Respiratory Exam Absent: accessory muscle use, rhonchi, stridor, wheezes - Routine Cardiovascular Exam Cardiovascular: Present: S1, S2 - Routine Abdominal Exam Present: normal bowel sounds - Routine Extremities Exam Present: pulses intact. Absent: pedal edema Hem/Onc Consult Result - Labs CBC & Chem 7: 09/11/22 05:51 09/11/22 05:51 Labs: Short CBC 09/10/22 09/10/22 09/11/22 Range/Units 12:03 17:17 05:51 WBC 10.6 9.2 8.1 (4.8-10.8) X10*3/uL Hgb 13.3 L 13.8 L 13.5 L (14.0-18.0) g/dl Hct 39.7 L 41.3 L 40.3 L (42.0-52.0) % Plt Count 242 253 256 (160-400) X10*3/uL [facility] 09/11/22 05:51 Sodium 140 Potassium 4.2 Chloride 106 Carbon Dioxide 24 BUN 37 H Creatinine 0.97 Calcium 9.0 Assessment and Plan Patient Active problem list reviewed?: Yes (1) Pulmonary emboli Status: Acute Assessment and plan: This is a pleasant 72-year-old man with metastatic prostate cancer in superficial bladder cancer presenting with multiple right pulmonary emboli. He was diagnosed with COVID-19 infection a week ago. He has a history of multiple falls related to leg weakness and was recently discharged from [facility]. There is no past history or family history of thromboembolism. For his prostate cancer he is on abiraterone with prednisone. He gets intravesical chemotherapy for superficial bladder cancer. He is being managed by Dr. Maier for both his cancers. CT angiogram performed 09/10/2022 shows acute embolism of right pulmonary artery with involvement of right upper lobe, middle lobe and superior segment of right lower lobe, no evidence of right heart strain. No pathological lymph nodes. Etiology of pulmonary embolism is probably multifactorial. He has been started on Lovenox, he can be switched to oral anticoagulant at this time. He does not have any significant respiratory symptoms. He is a candidate for long- term anticoagulation because of PE in the setting of malignancy. No role of thrombophilia workup. Patient was advised to monitor himself for any signs of bleeding or bruising. I thank you for this consultation. - Time Spent With Patient Time Spent with Patient (in minutes): 15
--- NOTE | 2022-09-11 13:31 | P.PNIM_ITS ---
Subjective Subjective Date of Service: 09/11/22 Interval History: sitting comfortably in bed, offers no acute complaints, no seizure-like activity noted in the ER, patient noted to have significant tachycardia with heart rate in 160s when he stood up for orthostatic BP checks, heart rate went down to normal range at rest, patient denies headache, no lightheadedness, no dizziness, no chest pain, no palpitations, denies GI symptoms. Review of Systems CVS no chest pain, no palpitation. Respiratory no cough no sob. Gastrointestinal no nausea no vomiting, no abdominal pain Review of Systems: Yes all other systems are reviewed and are negative Physical Exam Vital Signs: Vital Signs: Last Vital Signs Temp 98.9 F 09/11/22 07:31 Pulse 162 H 09/11/22 09:36 Resp 18 09/11/22 09:03 BP 117/84 09/11/22 09:36 Pulse Ox 97 09/11/22 09:03 O2 Del Method 09/11/22 09:03 BMI result Body Mass Index 27.2 Const: Other: ?General awake alert x3, sitting comfortably in no acute distress ?neck is supple no JVD ?lung sounds are clear to auscultation ?heart regular rate rhythm, clear? S1, S2 gastrointestinal abdomen soft nontender bowel sounds audible no guarding no rigidity ?neuro nonfocal psych appropriate affect Objective Data Active Medications Acetaminophen (Acetaminophen 325 Mg Tablet) 650 mg PO Q6H PRN PRN Reason: Pain, Mild (Pain Scale 1-3) Amlodipine Besylate (Amlodipine Besylate 2.5 Mg Tablet) 2.5 mg PO DAILY [facility]; Protocol Last Admin: 09/11/22 08:46 Dose: 2.5 mg Documented By: SINDY Atorvastatin Calcium (Atorvastatin Calcium 40 Mg Tablet) 40 mg PO BEDTIME [facility] Enoxaparin Sodium (Enoxaparin Sodium 100 Mg/Ml Syringe) 90 mg SUBCUT Q12H [facility] Last Admin: 09/11/22 05:53 Dose: 90 mg Documented By: JAYCE Sodium Chloride (Ns) 1,000 mls @ 100 mls/hr IVCONT .Q10H [facility] Stop: 09/11/22 21:44 Last Admin: 09/11/22 12:19 Dose: 100 mls/hr Documented By: SINDY Levetiracetam (Levetiracetam 1,000 Mg Tablet) 1,000 mg PO TID [facility] Last Admin: 09/11/22 08:45 Dose: 1,000 mg Documented By: SINDY Meclizine HCl (Meclizine Hcl 25 Mg Tablet) 25 mg PO BID PRN PRN Reason: dizziness Non-Formulary Medication (Abiraterone) 500 mg PO BEDTIME [facility] Ondansetron HCl (Ondansetron Hcl 4 Mg/2 Ml Vial) 4 mg IVPUSH Q8H PRN PRN Reason: Nausea and Vomiting Pharmacy Consult (Consult Rx Perform Med Rec) 1 each MISCELLANE ONCE PRN PRN Reason: Consult order Prednisone (Prednisone 2.5 Mg Tablet) 2.5 mg PO BID [facility] Last Admin: 09/11/22 10:38 Dose: 2.5 mg Documented By: SINDY Sodium Chloride (0.9 % Sodium Chloride Flush 3 Ml Syringe) 3 ml IVFLUSH QSHIFT [facility] Last Admin: 09/11/22 10:37 Dose: 3 ml Documented By: SINDY Tamsulosin HCl (Tamsulosin Hcl 0.4 Mg Capsule) 0.4 mg PO BID [facility] Last Admin: 09/11/22 08:47 Dose: 0.4 mg Documented By: SINDY Topiramate (Topiramate 25 Mg Tablet) 50 mg PO BID [facility] Last Admin: 09/11/22 08:45 Dose: 50 mg Documented By: SINDY Vitamin D (Cholecalciferol (Vitamin D3) 25 Mcg Tablet) 50 mcg PO DAILY [facility] Last Admin: 09/11/22 08:47 Dose: 50 mcg Documented By: SINDY Labs CBC & Chem 7: 09/11/22 05:51 09/11/22 05:51 Labs: Laboratory Results - last 24 hr 09/10/22 09/10/22 09/10/22 12:03 12:46 17:17 MCV 97.8 98.3 H MCH 32.8 32.9 MCHC 33.5 33.4 RDW 12.0 12.0 Plt Count 242 253 MPV 10.6 10.1 Immature Gran % (Auto) 0.4 Neut % (Auto) 78.3 H Lymph % (Auto) 12.8 L [place] % (Auto) 8.1 Eos % (Auto) 0.2 Baso % (Auto) 0.2 Lymph # (Auto) 1.4 [place] # (Auto) 0.9 Eos # (Auto) 0.0 Baso # (Auto) 0.0 Abs Immat Gran (auto) 0.04 H Absolute Neuts (auto) 8.3 Absolute Nucleated RBC 0.000 0.000 Nucleated RBC % (auto) 0.0 0.0 PT INR APTT 22.8 L Anion Gap Estim Creat Clear Calc Estimated GFR Random Glucose Calcium 09/10/22 09/11/22 09/11/22 17:17 05:51 05:51 MCV 99.0 H MCH 33.2 H MCHC 33.5 RDW 12.0 Plt Count 256 MPV 10.5 Immature Gran % (Auto) 0.4 Neut % (Auto) 59.6 Lymph % (Auto) 30.1 [place] % (Auto) 8.4 Eos % (Auto) 0.9 Baso % (Auto) 0.6 Lymph # (Auto) 2.5 [place] # (Auto) 0.7 Eos # (Auto) 0.1 Baso # (Auto) 0.1 Abs Immat Gran (auto) 0.03 Absolute Neuts (auto) 4.9 Absolute Nucleated RBC 0.000 Nucleated RBC % (auto) 0.0 PT 10.9 INR 1.0 APTT 25.6 L Anion Gap 14 Estim Creat Clear Calc 77.7 Estimated GFR > 60 Random Glucose 72 Calcium 9.0 Assessment and Plan (1) Pulmonary emboli: Status: Acute (2) Malignant tumor of prostate: Status: Acute (3) Hyperlipidemia: Status: Acute (4) Essential hypertension: Status: Acute (5) Seizure disorder: Status: Acute Plan 72-year-old man with history of seizures, prostate cancer admitted after a syncopal episode possibly related to a seizure.? Subsequently also found to have multiple pulmonary emboli. Syncope Possibly secondary to seizure, likely not related to PE, seen by Dr. 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 COVID-19 positive no hypoxia or signs of sepsis, supportive care Seizure disorder seen by Neurology due to elevated Keppra level Dr. Roth recommend to reduce dose of Keppra to 1000 mg twice daily and to increase dose of Topamax to 100 mg b.i.d., continue Seizure precautions follow levels of Keppra and Topamax History of prostate cancer with metastatic disease continue follow-up with Dr. Maier, continue home medication BPH Continue tamsulosin chronic dizziness on Meclizine DVT prophylaxis with Lovenox Full code Patient need continued inpatient hospitalization for acute pulmonary embolus, tachycardia need close cardiac monitoring, also requiring medication adjustment for seizure. Quality Stroke Does the patient have a stroke diagnosis?: No VTE Prior VTE?: No VTE Risk Level:: Medical - moderate - high VTE Device Contraindication: Treatment Not Indicated VTE Drug Contraindication: N/A - Med Ordered
[2022-09-11 17:57] LABS: Prothrombin Time 11.9 SEC (10.0-13.1)
[2022-09-11] MEDS: Atorvastatin Calcium 40 MG TABLET PO (20:57)
[2022-09-11] MEDS: Topiramate 100 MG TABLET PO (20:57)
[2022-09-11] MEDS: ABIRATERONE 250 MG 500 EACH PO (20:58)
[2022-09-12 00:36] VITALS: BP 122/78; PULSE 78; RESP 20; TEMP 37.1; O2SAT 96
[2022-09-12] MEDS: Enoxaparin Sodium 100 MG/ML SYRINGE 90 MG SUBCUT (06:18)
[2022-09-12 07:45] VITALS: BP 155/80; PULSE 83; RESP 20; O2SAT 97
[2022-09-12] MEDS: Cholecalciferol (Vitamin D3) 25 MCG TABLET 50 MCG PO (08:22)
[2022-09-12] MEDS: Topiramate 100 MG TABLET PO (08:23)
[2022-09-12] MEDS: amLODIPine Besylate 2.5 MG TABLET PO (08:23)
[2022-09-12] MEDS: levETIRAcetam 1,000 MG TABLET 1000 MG PO (08:23)
[2022-09-12] MEDS: Tamsulosin HCL 0.4 MG CAPSULE PO (08:23)
[2022-09-12] MEDS: predniSONE 2.5 MG TABLET PO (08:23)
[2022-09-12] MEDS: 0.9 % Sodium Chloride Flush 3 ML SYRINGE IVFLUSH (08:25)
--- NOTE | 2022-09-12 08:51 | PC.NURSE ---
alert, speech clear, skin wpd, no complaints, medicated as ordered, nad
[2022-09-12] MEDS: Apixaban 5 MG TABLET 10 MG PO (09:29)
--- NOTE | 2022-09-12 09:41 | PC.NURSE ---
pt walked w walker down the [place]. pt did well and had a steady gate, pt stating that he feels he can manage well at home.
--- NOTE | 2022-09-12 09:45 | PC.NURSE ---
steady walking w walker and pt reports feeling steady and good to go home
--- NOTE | 2022-09-12 11:12 | P.DS_ITS ---
DS: Providers Provider Date of Service: 09/12/22 Date of admission: 09/10/22 16:24 Primary care physician: Eric Dinh MD Consults: 09/10/22 16:27 Consult to Hematology / Oncology Routine Consulting Provider: Zoe Steven Reason for consultation: PE Has provider been notified: No Consult to Neurology Routine Consulting Provider: [facility] Reason for consultation: ?seizure Has provider been notified: No DS: Diagnosis Discharge Diagnosis (1) Pulmonary emboli: Status: Acute DS: Summary Hospital Course Hospital Course: Chief Complaint:? syncope ?72-year-old man presented to the ER after an episode of syncope at home.? He was released from short-term rehab yesterday.? Apparently he was sitting at his table when he was meeting with visiting nurse and had a period of unresponsiveness, heavy breathing and staring. Just prior to that he had gotten up and waqlked to the kitchen and felt dizzy. ? He did not have any trauma or fall, no incontinence of bowel or bladder.? Apparently his last seizure was several weeks ago and patient reports being compliant with his medications.? In the ER, all his labs are within acceptable limits, he is hemodynamically stable with normal blood pressure.? D-dimer was checked and was found to be elevated therefore CTA was obtained which did show multiple pulmonary emboli in the right upper, middle and lower lobe.? He was given a dose of therapeutic Lovenox in the ER.? He will be admitted for further management and treatment of acute syncope and pulmonary embolus. hospital course 72-year-old man with history of seizures, prostate cancer admitted after a syncopal episode possibly related to a seizure.? Subsequently also found to have multiple pulmonary emboli. Syncope Possibly secondary to seizure, likely not related to PE, seen by Dr. Roth, his seizures include a few seconds to few minutes of staring and unresponsiveness with history of complex partial seizure disorder related to ischemic? microvascular disease of brain, orthostatic blood pressures? study showed stable blood pressure with tachycardia likely due to dehydration received 1 L of IV fluid repeat blood pressure studies are unremarkable patient ambulated blood pressure and pulse remained stable therefore being discharged home Acute pulmonary embolus CTA showed right pulmonary artery involvement of right upper, middle and superior segment of right lower lobe without evidence of heart strain, initially treated with Lovenox subsequently seen by Dr. Steven she recommend oral anticoagulation therefore patient placed on Eliquis loading dose 10 mg bf.i.d. for 1 week, followed by 5 mg twice daily indefinitely. COVID-19 positive no hypoxia or signs of sepsis, recommend to take Tylenol and cough medication as needed Seizure disorder seen by Neurology due to elevated Keppra level Dr. Roth recommend to reduce dose of Keppra to 1000 mg twice daily and to increase dose of Topamax to 100 mg b.i.d., continue Seizure precautions repeatlevels of Keppra and Topamax are pending History of prostate cancer with metastatic disease continue follow-up with Dr. Maier, continue home medication BPH Continue tamsulosin chronic dizziness on Meclizine Time Spent with Patient Time attestation: Total time spent providing and/or coordinating discharge services: Discharge coordination time: Greater than 30 minutes Quality: Safe Use of Opioids Does Pt have an Active Cancer Diagnosis on the Problem List?: No Quality: Stroke Does the patient have a stroke diagnosis?: No Physical Exam Vital Signs: Vital Signs: Last Vital Signs Temp 98.8 F 09/12/22 00:36 Pulse 83 09/12/22 07:45 Resp 20 09/12/22 07:45 BP 155/80 H 09/12/22 07:45 Pulse Ox 97 09/12/22 07:45 O2 Del Method 09/12/22 07:45 BMI result Body Mass Index 27.2 Const: Other: General awake aler t x3, sitting comf ortably in no acut e distress ?neck i s supple no JVD ?l [place] sounds are yoni ar to auscultation ?heart regular ra te rhythm, clear? S1, S2 ?gastrointe stinal? abdomen so ft nontender bowel sounds audible no guarding no rigid ity ?neuro? nonfoc al ?psych appropri ate affect DS: Data Data Completed and Pending Labs on day of discharge: Laboratory Results - last 24 hr 09/11/22 17:32 PT 11.9 INR 1.0 Discharge Plan Discharge Anticipated Discharge Date/Time: 09/12/22 11:04 Patient Disposition: Home, Self-Care Discharge Diagnosis: acute pulmonary embolism syncope Referrals: Eric Dinh MD [Primary Care Provider] - 1 Week Discharge Medications: New Eliquis 5 mg Tablet 10 mg PO BID Qty: 90 0RF Rx Instructions: take Eliquis 5 mg 2 tablets twice daily for 7 days, followed by Eliquis 5 mg 1 tablet twice daily topiramate 100 mg Tablet 100 mg PO BID Qty: 60 0RF levetiracetam 1,000 mg Tablet 1,000 mg PO BID Qty: 60 0RF Continued prednisone 2.5 mg tablet 2.5 mg PO BID 30 Days Qty: 60 5RF abiraterone 250 mg tablet 500 mg PO BEDTIME 90 Days Qty: 180 3RF Rx Instructions: must be taken on empty stomach, at least 1 hr before or 2 hrs after a meal/food cholecalciferol (vitamin D3) 50 mcg (2,000 unit) capsule 1 cap PO DAILY atorvastatin 40 mg tablet 1 tab PO BEDTIME tamsulosin 0.4 mg capsule 1 cap PO BID tramadol 50 mg tablet 50 mg PO Q6H PRN (Reason: pain) Qty: 20 0RF meclizine 25 mg tablet 25 mg PO BID PRN (Reason: dizziness) Qty: 10 0RF riboflavin (vitamin B2) 100 mg Tablet 100 mg PO BID magnesium 250 mg Tablet 250 mg PO BID amlodipine 2.5 mg tablet 2.5 mg PO DAILY Discontinued levetiracetam [Keppra] 500 mg tablet 1,000 mg PO TID topiramate 50 mg tablet 50 mg PO BID Discharge Orders: Discharge Order (Routine); Ordered 09/12/22 Ordered By: Mitra Bran Diet: Low fat, low cholesterol Activity on Discharge: As tolerated Stand Alone Forms: Patient Portal Discharge page Care Plan Goals: pulmonary embolism take Eliquis 5 mg tablets take 2 tablets twice daily for 7 days followed by Eliquis 5 mg 1 tablet twice daily due to concern for seizure causing syncope dose of Topamax increased to 100 mg twice daily and dose of Keppra reduced to 1000 b.i.d. if noted to have unsteady gait and fall notify your primary care doctor repeat level of Keppra and Topamax pending follow-up with primary care physician to obtain results Health Concerns: continue cancer treatment and all medications as before Plan of Treatment: follow-up with primary care physician and Urology as before Assessment: as above
--- NOTE | 2022-09-12 11:44 | MHC.CM.PN ---
Patient has been medically cleared for dc to home today, with services. Patient is active with [facility], who has been notified of today's dc. Last IMM addressed yesterday. Per MD's request, FREDERICK provided Patient with the free 30 day trial coupon for Eliquis.
[2022-09-12 16:01] LABS: Levetiracetam Keppra 67.3 mcg/mL (6.0-46.0)
--- NOTE | 2022-09-12 16:20 | PC.NURSE ---
pt cleared for discharge,he was picked up by his and transported via wheelchair to private vehicle.
[2022-09-13 04:27] LABS: Topiramate 9.2 mcg/mL (see note)
== END 2022-09-12 16:30 | disposition home health service (06) | DRG 175 ==
LOC: HO.ED 16:09 → HO.EDOVER 16:33
PROVIDERS: Nurse Practitioner Family; Admitting Provider Nurse Practitioner Acute Care; Emergency Provider Emergency Medicine; PCP Family Medicine; Visit Provider Hospitalist
DX: I26.99 Other pulmonary embolism without acute cor pulmonale (principal); U07.1 COVID-19; G40.209 Localization-related (focal) (partial) symptomatic epilepsy and epileptic syndromes with complex partial seizures, not intractable, without status epilepticus; C79.51 Secondary malignant neoplasm of bone; E86.0 Dehydration; R42 Dizziness and giddiness; R00.0 Tachycardia, unspecified; C67.9 Malignant neoplasm of bladder, unspecified; E78.00 Pure hypercholesterolemia, unspecified; Z87.440 Personal history of urinary (tract) infections; Z85.46 Personal history of malignant neoplasm of prostate; Z88.5 Allergy status to narcotic agent; Z79.01 Long term (current) use of anticoagulants; Z79.899 Other long term (current) drug therapy
CPT/HCPCS: 36415; 71275; 80048; 80076; 80177; 80201; 81001; 83605; 83735; 84484; 85025; 85027; 85379; 85610; 85730; 87635; 93005; 99285; J1650; Q9967

== ENCOUNTER 2022-09-16 08:27 | Outpatient (REF) | payer OTHER, SELFPAY ==
[2022-09-23 13:39] LABS: Testosterone, Total 3 ng/dL (250-1100)
== END 2022-09-16 08:28 | disposition home or self-care (01) ==
LOC: HO.LAB 08:27
PROVIDERS: Visit Provider Urology
DX: Z12.5 Encounter for screening for malignant neoplasm of prostate (principal); C61 Malignant neoplasm of prostate; C79.51 Secondary malignant neoplasm of bone
CPT/HCPCS: 36415; 84153; 84403

== ENCOUNTER 2022-10-12 08:52 | Outpatient (REF) | payer OTHER, SELFPAY ==
[2022-10-12 17:36] LABS: Urine Cytology See Pathology rpt
== END 2022-10-12 08:53 | disposition home or self-care (01) ==
LOC: HO.LAB 08:52
PROVIDERS: PCP Family Medicine; Visit Provider Urology
DX: C67.1 Malignant neoplasm of dome of bladder (principal); C67.9 Malignant neoplasm of bladder, unspecified; C61 Malignant neoplasm of prostate; C79.51 Secondary malignant neoplasm of bone; Z79.01 Long term (current) use of anticoagulants
CPT/HCPCS: 52000; 88112; 96372; 96402; 99212; J0897; J9217

== ENCOUNTER → 2023-01-03 10:36 | Outpatient (REF) | payer OTHER, SELFPAY ==
--- NOTE | ~2023-01-03 | NM_ITS ---
EXAMINATION: NM BONE SCAN OF THE WHOLE BODY CLINICAL INFORMATION: Malignant neoplasm of prostate. COMPARISON: The previous bone scan dated 06/21/2022 is available for comparison. Radiographs of the chest dated 08/21/2022 are the most recent radiographs available for comparison. CT angiogram of the chest dated 09/10/[address] scan of the abdomen and pelvis dated 05/24/2022 are also available for comparison. TECHNIQUE: Multiple gamma scintillation camera images of the whole body were performed 2.5 hours following the intravenous administration of 35 mCi Tc-99m MDP. FINDINGS: In the head, no significant abnormalities are present. In the thoracic cage and upper extremities, there is minimally increased activity in the sternoclavicular joints bilaterally. In the spine, there is minimally increased activity in the right side of the lumbosacral junction. A mild thoracolumbar scoliosis is present with lumbar convexity to the right. In the pelvis, no significant abnormalities are present. In the lower extremities, no significant abnormalities are present. No other definite bony abnormalities are noted. The urinary bladder and faint visualization of both kidneys are noted. Compared to the previous bone scan dated 06/21/2022, the has not been a significant change. NM/NM bone scan whole body IMPRESSION: A few minimal nonspecific abnormalities are noted as described above and these are all likely arthritic or traumatic in etiology. None of these abnormalities is strongly suspicious for metastatic disease.
[2023-01-10 12:44] LABS: Testosterone, Total <1 ng/dL (250-1100)
== END ==
LOC: HO.NUCMED 10:36
PROVIDERS: PCP Family Medicine; Visit Provider Urology
DX: Z12.5 Encounter for screening for malignant neoplasm of prostate (principal); C61 Malignant neoplasm of prostate; C79.51 Secondary malignant neoplasm of bone
CPT/HCPCS: 36415; 78306; 84153; 84403; A9503

== ENCOUNTER 2023-01-06 19:22 | Emergency (ER) | payer OTHER, SELFPAY ==
--- NOTE | ~2023-01-06 | XR_ITS ---
EXAMINATION: XR HAND, LEFT CLINICAL INFORMATION: Fall onto hand COMPARISON: None available. TECHNIQUE: PA, lateral, and oblique views of the left hand. FINDINGS: There is no fracture or dislocation. Alignment maintained. Joint spaces are maintained. Small osteophytes at the first interphalangeal joint. The soft tissues appear unremarkable. XR/XR hand LT min 3V IMPRESSION: No fracture or malalignment. Mild degenerative change at the first interphalangeal joint.
--- NOTE | ~2023-01-06 | XR_ITS ---
EXAMINATION: XR CHEST CLINICAL INFORMATION: Fever. Question aspiration. COMPARISON: None available. TECHNIQUE: Frontal view of the chest was obtained. FINDINGS: The lungs are hypoexpanded and clear. The heart size and pulmonary vascularity is normal. No gross bony abnormality seen. XR/XR chest 1V IMPRESSION: Hypoexpanded lungs without acute process.
--- NOTE | ~2023-01-06 | CT_ITS ---
EXAMINATION: CT CHEST WITH CONTRAST CT ABDOMEN AND PELVIS WITH CONTRAST CLINICAL INFORMATION: Fall. Chest trauma. Found down. COMPARISON: 09/10/2022 TECHNIQUE: Multidetector volumetric imaging was performed through the chest, abdomen and pelvis following the administration of 85 mL of Omnipaque 350 intravenous contrast. Sagittal and coronal reformatted images were obtained on the technologist's workstation. Axial MIP volume rendering provided. This CT examination was performed using dose optimization techniques as appropriate, variously including the following: *Automated exposure control *Adjustment of mA and/or kV according to patient size (this includes techniques or standardized protocols for targeted exams where dose is matched to indication/reason for exam; i.e. extremities or head) *Use of iterative reconstruction technique DLP: 1744 mGy-cm. FINDINGS: CHEST: Lungs: The central airways are patent. No consolidation. Minimal dependent atelectasis.. No pleural effusion or pneumothorax. There are no pulmonary parenchymal nodules. Mediastinum: The heart is prominent. There is no pericardial effusion. Central vascular structures are unremarkable. No hilar or mediastinal lymphadenopathy. Coronary Artery Calcification: None visualized on this study. Chest Wall/Axilla: No lymphadenopathy. No chest wall mass. ABDOMEN/PELVIS: Liver, Gallbladder, Biliary Tree: The liver is normal in size, shape, and attenuation. No biliary ductal dilatation. A few tiny hypoattenuating lesions are seen in the liver which are too small to fully characterize. This is unchanged.. The gallbladder is unremarkable with no evidence of radiopaque gallstones, gallbladder wall thickening, or pericholecystic inflammatory changes. Pancreas: Unremarkable. Spleen: Unremarkable. Adrenal Glands: Unremarkable. Kidneys and Ureters: The kidneys are normal in size, shape, and attenuation. No hydronephrosis, hydroureter or calculi seen. No perinephric stranding. Bladder: Unremarkable. Gastrointestinal Tract: Distended stomach without wall thickening. Duodenal diverticulum noted. Normal caliber small bowel. No bowel obstruction. Colonic diverticulosis present which is greatest at the sigmoid colon. No diverticulitis. No free air or free fluid. The appendix is unremarkable. Abdominal Wall: No hernia is demonstrated. Lymphovascular Structures: Lymph nodes: Normal. Vascular: Unremarkable. Pelvic Viscera: The prostate and seminal vesicles are unremarkable. OSSEOUS STRUCTURES: Vertebral body height and alignment maintained. DISH. Degenerative change throughout the spine. Vacuum disc phenomenon at the lumbar spine. The ribs appear intact. The pelvis is intact. CT/CT abdomen pelvis w IV con IMPRESSION: 1. No acute traumatic finding of the chest, abdomen, or pelvis. No acute fractures. 2. Colonic diverticulosis without diverticulitis.
--- NOTE | ~2023-01-06 | CT_ITS ---
EXAMINATION: CT HEAD WITHOUT CONTRAST CT CERVICAL SPINE WITHOUT CONTRAST CLINICAL INFORMATION: Neck pain after a fall. Head strike. COMPARISON: 07/15/2022 TECHNIQUE: A noncontrast CT of the head and a noncontrast CT of the cervical spine with sagittal and coronal reformats. This CT examination was performed using dose optimization techniques as appropriate, variously including the following: *Automated exposure control *Adjustment of mA and/or kV according to patient size (this includes techniques or standardized protocols for targeted exams where dose is matched to indication/reason for exam; i.e. extremities or head) *Use of iterative reconstruction technique DLP: 2015 FINDINGS: No intra-axial or extra-axial hemorrhage. No acute territorial infarct. Chronic small vessel ischemic disease of the periventricular white matter. Generalized atrophy. Preservation of lujan-white matter differentiation. No mass, mass effect, or midline shift. No fracture. The mastoid air cells and visualized paranasal sinuses are clear. Normal alignment of the cervical spine. No fracture. No prevertebral soft tissue swelling. Mild to moderate multilevel degenerative disc disease. CT/CT head/brain wo IV con IMPRESSION: 1. No acute intracranial abnormality. 2. No cervical spine fracture or traumatic subluxation.
--- NOTE | ~2023-01-06 | CT_ITS ---
EXAMINATION: CT HEAD WITHOUT CONTRAST CT CERVICAL SPINE WITHOUT CONTRAST CLINICAL INFORMATION: Neck pain after a fall. Head strike. COMPARISON: 07/15/2022 TECHNIQUE: A noncontrast CT of the head and a noncontrast CT of the cervical spine with sagittal and coronal reformats. This CT examination was performed using dose optimization techniques as appropriate, variously including the following: *Automated exposure control *Adjustment of mA and/or kV according to patient size (this includes techniques or standardized protocols for targeted exams where dose is matched to indication/reason for exam; i.e. extremities or head) *Use of iterative reconstruction technique DLP: 2015 FINDINGS: No intra-axial or extra-axial hemorrhage. No acute territorial infarct. Chronic small vessel ischemic disease of the periventricular white matter. Generalized atrophy. Preservation of lujan-white matter differentiation. No mass, mass effect, or midline shift. No fracture. The mastoid air cells and visualized paranasal sinuses are clear. Normal alignment of the cervical spine. No fracture. No prevertebral soft tissue swelling. Mild to moderate multilevel degenerative disc disease. CT/CT cervical spine wo IV con IMPRESSION: 1. No acute intracranial abnormality. 2. No cervical spine fracture or traumatic subluxation.
[2023-01-06 19:35] VITALS: BP 111/63; BP 116/82; PULSE 72; PULSE 77; RESP 29; TEMP 36.2; O2SAT 94; BMI 35.2
--- NOTE | 2023-01-06 19:40 | ECG_ITS ---
Test Reason : fall Blood Pressure : / mmHG Vent. Rate : 078 BPM Atrial Rate : 078 BPM P-R Int : 148 ms QRS Dur : 108 ms QT Int : 408 ms P-R-T Axes : 024 -76 030 degrees QTc Int : 465 ms Normal sinus rhythm Left axis deviation Cannot rule out Anterior infarct , age undetermined Abnormal ECG When compared with ECG of 10-SEP-2022 12:27, No significant change was found Referred By: Earl Sweet Electronically Signed By:DIPESH FLORES MD
--- NOTE | 2023-01-06 19:42 | ED.GENADULT ---
HPI - General Adult General Chief complaint: Nausea/Vomiting/Diarrhea Stated complaint: N/V/D, SYNCOPE Time Seen by Provider: 01/06/23 19:40 Source: EMS Mode of arrival: EMS Limitations: no limitations History of Present Illness HPI narrative: This is a 72-year-old male history of PE anticoagulated on Eliquis, prostate cancer with metastasis to bone, osteopenia, recurrent UTIs, migraine headaches, cerebral microvascular disease, bladder cancer presenting to the emergency department with fatigue, malaise, nausea, vomiting, weakness X 1 day and fall with loss of consciousness just prior to arrival. Patient reports he was in the bathroom, tried to get up, felt weak, fell, lost consciousness he thinks he may have hit his head however unsure, tells me was on the ground for about 10 minutes he thinks however unclear. He sustained a skin tear to his left hand. His found him on the ground, called EMS. When EMS arrived patient was found in the bathroom, patient had an episode of diarrhea. at home sick with similar symptoms. Patient was placed in cervical collar. Patient tells me he did not have any preceding symptoms to fall such as chest pain, shortness of breath, dizziness, vision changes. He tells me he is anticoagulated on Eliquis. Unclear tetanus status Related Data Home Medications Medication Instructions Recorded Confirmed atorvastatin 40 mg tablet 1 tab PO BEDTIME 07/19/20 10/11/22 cholecalciferol (vitamin D3) 50 1 cap PO DAILY 12/07/20 10/11/22 mcg (2,000 unit) capsule tamsulosin 0.4 mg capsule 1 cap PO BID 07/10/21 10/11/22 amlodipine 2.5 mg tablet 2.5 mg PO DAILY 06/29/22 10/11/22 magnesium 250 mg tablet 250 mg PO BID 09/10/22 10/11/22 riboflavin (vitamin B2) 100 mg 100 mg PO BID 09/10/22 10/11/22 tablet levetiracetam 500 mg tablet 1,000 mg PO BID 10/12/22 Previous Rx's Medication Instructions Recorded tramadol 50 mg tablet 50 mg PO Q6H PRN pain #20 tabs 01/21/22 abiraterone 250 mg tablet 500 mg PO BEDTIME 90 days #180 tabs 07/07/22 meclizine 25 mg tablet 25 mg PO BID PRN dizziness #10 tabs 08/15/22 apixaban 5 mg tablet (Eliquis) 10 mg PO BID #90 tabs 09/12/22 levetiracetam 1,000 mg tablet 1,000 mg PO BID #60 tabs 09/12/22 topiramate 100 mg tablet 100 mg PO BID #60 tabs 09/12/22 prednisone 2.5 mg tablet 2.5 mg PO BID 30 days #60 tabs 12/28/22 loperamide 2 mg capsule 2 mg PO Q6H PRN loose stool #30 01/06/23 (Anti-Diarrheal (loperamide)) caps ondansetron 4 mg disintegrating 4 mg PO Q6H PRN nausea and 01/06/23 tablet vomiting #14 tabs Allergies Allergy/AdvReac Type Severity Reaction Status Date / Time oxycodone [Percocet] AdvReac Intermediate face got Verified 10/12/22 08:54 really red Review of Systems Review of Systems: Constitutional : No Weight loss, No Fever, No Chills, No Fatigue, No Malaise ENT/Mouth : No sore throat, No Rhinorrhea Eyes: No Eye Pain, No Swelling, No Redness Cardiovascular : No Chest Pain, No SOB, No Dyspnea on Exertion, No Orthopnea, No Edema, No Palpitations Respiratory : No Cough, No Sputum, No Wheezing Gastrointestinal : + Nausea, + Vomiting, + Diarrhea, No Constipation, No abdominal Pain, No Hematochezia, No Melena Genitourinary : No Dysuria, No Urinary Frequency, No Hematuria, Musculoskeletal : No joint pain, No Myalgias, No Joint Swelling Skin : No Skin Lesions, No rash Neuro : No Weakness, No Numbness, No Dizziness, No Headache Psych : No Anxiety/Panic, No Depression All other systems reviewed and are negative Yes all other systems are reviewed and are negative [facility] Past Medical History Attestation statement: The following information was validated with the patient. 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 Dizziness Elevated cholesterol Essential hypertension (05/16/21) Hematuria HTN (hypertension) Hyperlipidemia (05/16/21) Malignant tumor of prostate (08/02/21) Prostate CA Seizure disorder Tremor Surgical History H/O prostate biopsy History of cystoscopy Hx of colonoscopy Social History Social History Household Members: Spouse Housing: House Are you a primary childcare center director to a significant other at home: No Do you presently have visiting nurse or other home services: No Alcohol intake: never Patient Tobacco Use Status: Never used Tobacco Second Hand Smoke Exposure: No Advance Directives: Yes Advance Directives on File: Yes Advance Directives Date on File: 05/22/22 service: No Current occupational status: retired Physical Exam ED Vital Signs: Vital Signs - 24 hr 01/06/23 19:35 01/06/23 23:02 01/06/23 23:02 Temperature 97.2 F Pulse Rate 77 94 109 H Respiratory Rate 29 H Blood Pressure 111/63 118/70 115/66 Pulse Oximetry 94 Oxygen Delivery Method Room Air 01/06/23 23:52 Temperature 98.1 F Pulse Rate 97 Respiratory Rate 22 H Blood Pressure 102/75 Pulse Oximetry 93 Oxygen Delivery Method Room Air BMI result Body Mass Index 35.2 Vital signs stable Appearance: Alert.? Oriented X3.? No acute distress.? Head: Normocephalic, atraumatic, no step-offs or deformities Eyes: Pupils equal, round and reactive to light.? ENT: Pharynx normal.? Neck: Normal inspection.? Neck supple.? CVS: Normal heart rate and rhythm.? Pulses normal.? Respiratory: No respiratory distress.? Breath sounds normal.? Abdomen: Soft and nontender.? Skin: Skin warm and dry.? Normal skin color.? Normal skin turgor.?+ moderate-sized skin tear to the dorsal aspect of left hand with dressing applied overlying it. Extremities: No lower extremity edema.? No calf ttp. Global weakness Neuro: Oriented X 3.? No motor deficit.? No sensory deficit. CN 2-12 intact Course Reevaluation(s) Reevaluation #1: Patient's CBC appears to be at baseline. No acute findings. Patient's CBC also appears to be around baseline. Elevated BUN however this is not a new finding. Patient's bilirubin elevated 1.7, previous was 1.3 on 09/10/2022, no distinguished tenderness to right upper quadrant therefore no need for further imaging he can follow up with PCP for ED follow-up. Troponin negative. CPK negative. No signs of rhabdo, unlikely ACS. Patient anticoagulated unlikely PE. UA without infection. Ethanol level negative. Flu and COVID also negative. CT of head with no acute intracranial abnormality. No cervical spine fracture or traumatic subluxation noted. CT of the chest, abdomen pelvis pending as well as x-ray of hand. I suspect patient can be discharged home after ambulatory trial. This is likely a viral illness Time: 22:09 Reevaluation #2: CT of the chest, abdomen and pelvis without traumatic findings. No acute fractures noted. Colonic diverticulosis without diverticulitis. No fractures of the left hand. Mild degenerative changes. Patient to be discharged home if he is able to ambulate with steady gait with walker as he usually usual as it walker at home. I did recommend for patient to be evaluated by PT in case management however patient adamantly refusing and tells me he would like to go home. Educated patient on diagnosis and treatment plan, answered all question, patient verbalizes understanding. At this time patient will be discharged home, advised to return with new or worsening symptoms. Educated on worrisome signs and symptoms and when to return. At this time I feel comfortable discharge home. Time: 22:45 Reevaluation #3: Orthostatics negative from sitting to lying down, patient did not stand I asked him why he said he did feel comfortable standing without a walker. I will have him ambulated around the room. He denies dizziness tells me he feels fine. Time: 23:13 Additional Reevaluation(s): 0021 Patient failed ambulatory trial. Nursing spoke to who states he would benefit from short-term rehab and physician observation with Case Management physical therapy evaluation. Patient unable to walk on safe to discharge him home this by. Will put him into observation to allow for evaluation by case management physical therapy prior to disposition. Medications Administered Discontinued Medications Generic Name Dose Route Start Last Admin Trade Name Freq PRN Reason Stop Dose Admin Bacitracin 1 appl 01/06/23 19:57 01/06/23 20:31 Bacitracin Oint 0.9 Gm Packet TOPICAL 01/06/23 19:58 1 appl ONCE ONE Administration Protocol Diphtheria/Tetanus/Acell Pertussis 0.5 ml 01/06/23 19:57 01/06/23 20:31 Diphth,Pertus(Acell),Tet Adult 0.5 Ml Syringe IM 01/06/23 19:58 0.5 ml .ONCE ONE Administration Sodium Chloride 1,000 mls @ 999 mls/hr 01/06/23 19:45 01/06/23 21:07 Ns IV 01/06/23 20:45 999 mls/hr .Q1H1M LUCA Administration Iohexol 100 ml 01/06/23 21:01 01/06/23 21:02 Iohexol 350 Mg/Ml 100 Ml Infus..Btl IV 01/06/23 21:02 85 ml ONCE ONE Administration Medical Decision Making Medical Decision Making [facility] Narrative: 1937 72-year-old male presents with complaints of nausea, vomiting, diarrhea was found on the ground by EMS in his bathroom status post fall or syncopal episode. Patient arrives in cervical collar. Physical exam with global weakness and skin tear to dorsal aspect of left hand, no focal neuro deficits, patient in cervical collar. Concerns for possible viral illness with dehydration, orthostatic hypotension or dizziness versus vasovagal syncope versus fall. Unlikely dysrhythmia, ACS or PE ( patient anticoagulated). Will rule out viral illness, traumatic injuries to chest, abdomen or pelvis, rhabdomyolysis, electrolyte abnormalities and disturbances. Plan labs, imaging, urine, viral testing, orthostatic vitals. Differential Diagnosis Differential Diagnoses: The differential diagnosis associated with the presentation includes Concerns for possible viral illness with dehydration, orthostatic hypotension or dizziness versus vasovagal syncope versus fall. Unlikely dysrhythmia, ACS or PE ( patient anticoagulated). Will rule out viral illness, traumatic injuries to chest, abdomen or pelvis, rhabdomyolysis, electrolyte abnormalities and disturbances. Admission/Observation Consideration of admission/observation: Escalation of care including admission/observation considered Lab Data [facility] Lab Attestation statement: I reviewed the patient's lab results. 01/06/23 19:59 01/06/23 19:59 Labs: Lab Results 01/06/23 01/06/23 01/06/23 Range/Units 19:59 19:59 19:59 WBC 6.6 (4.8-10.8) X10*3/uL RBC 4.38 L (4.60-5.80) X10*6/uL Hgb 14.7 (14.0-18.0) g/dl Hct 44.3 (42.0-52.0) % MCV 101.1 H (80.0-98.0) fL MCH 33.6 H (27.0-33.0) pg MCHC 33.2 (31.0-36.0) g/dl RDW 13.3 (11.0-16.0) % Plt Count 216 (160-400) X10*3/uL MPV 9.9 (9.4-12.4) fL Immature Gran % (Auto) 0.2 (0.0-0.4) % Neut % (Auto) 81.1 H (45-73) % Lymph % (Auto) 14.8 L (20-40) % [place] % (Auto) 2.3 (2-11) % Eos % (Auto) 1.1 (0-4) % Baso % (Auto) 0.5 (0-2) % Lymph # (Auto) 1.0 L (1.2-4.9) X10*3/uL [place] # (Auto) 0.2 (0.1-1.2) X10*3/uL Eos # (Auto) 0.1 (0.0-0.4) X10*3/uL Baso # (Auto) 0.0 (0.0-0.2) X10*3/uL Abs Immat Gran (auto) 0.01 (0.00-0.03) X10*3/uL Absolute Neuts (auto) 5.4 (2.0-8.3) x10*3/uL Absolute Nucleated RBC 0.000 (0.0-0.012) X10*3/uL Nucleated RBC % (auto) 0.0 (0.0-0.2) /100WBC PT (10.0-13.1) SEC INR (0.9-1.1) Sodium 144 (135-145) mmol/L Potassium 4.3 (3.3-5.1) mmol/L Chloride 114 H (96-108) mmol/L Carbon Dioxide 22 (22-29) mmol/L Anion Gap 12 (12-20) BUN 33 H (9-16) mg/dL Creatinine 1.29 (0.5-1.4) mg/dL Estim Creat Clear Calc 70.6 Estimated GFR 55 Random Glucose 129 H (60-115) mg/dL Calcium 8.9 (8.4-10.2) mg/dL Magnesium 2.2 (1.6-2.6) mg/dL Total Bilirubin 1.7 H (0.0-1.0) mg/dL AST 30 (5-37) U/L ALT 45 H (0-40) U/L Alkaline Phosphatase 102 (39-117) U/L Total Creatine Kinase 74 (38-174) U/L Troponin I High Sens < 3.5 (<3.5-35.0) ng/L B-Natriuretic Peptide (<100) pg/mL Total Protein 7.1 (6.5-8.0) g/dL Albumin 4.0 (3.5-5.0) g/dL Lipase 35 (8-78) U/L Urine Color Urine Appearance Urine pH (5.0-9.0) Ur Specific [place] (1.005-1.025) Urine Protein (Neg-Trace) mg/dL Urine Glucose (UA) (Negative) mg/dL Urine Ketones (Negative) mg/dL Urine Blood (Negative) Urine Nitrite (Negative) Ur Leukocyte Esterase (Negative) Ethyl Alcohol mg/dL COVID-19 (GENEVA) (Negative) COVID-19 Clin Com Influenza Type A (JORDAN) (Negative) Influenza Type B (JORDAN) (Negative) Influenza A & B Note 01/06/23 01/06/23 01/06/23 Range/Units 19:59 19:59 19:59 WBC (4.8-10.8) X10*3/uL RBC (4.60-5.80) X10*6/uL Hgb (14.0-18.0) g/dl Hct (42.0-52.0) % MCV (80.0-98.0) fL MCH (27.0-33.0) pg MCHC (31.0-36.0) g/dl RDW (11.0-16.0) % Plt Count (160-400) X10*3/uL MPV (9.4-12.4) fL Immature Gran % (Auto) (0.0-0.4) % Neut % (Auto) (45-73) % Lymph % (Auto) (20-40) % [place] % (Auto) (2-11) % Eos % (Auto) (0-4) % Baso % (Auto) (0-2) % Lymph # (Auto) (1.2-4.9) X10*3/uL [place] # (Auto) (0.1-1.2) X10*3/uL Eos # (Auto) (0.0-0.4) X10*3/uL Baso # (Auto) (0.0-0.2) X10*3/uL Abs Immat Gran (auto) (0.00-0.03) X10*3/uL Absolute Neuts (auto) (2.0-8.3) x10*3/uL Absolute Nucleated RBC (0.0-0.012) X10*3/uL Nucleated RBC % (auto) (0.0-0.2) /100WBC PT 12.4 (10.0-13.1) SEC INR 1.1 (0.9-1.1) Sodium (135-145) mmol/L Potassium (3.3-5.1) mmol/L Chloride (96-108) mmol/L Carbon Dioxide (22-29) mmol/L Anion Gap (12-20) BUN (9-16) mg/dL Creatinine (0.5-1.4) mg/dL Estim Creat Clear Calc Estimated GFR Random Glucose (60-115) mg/dL Calcium (8.4-10.2) mg/dL Magnesium (1.6-2.6) mg/dL Total Bilirubin (0.0-1.0) mg/dL AST (5-37) U/L ALT (0-40) U/L Alkaline Phosphatase (39-117) U/L Total Creatine Kinase (38-174) U/L Troponin I High Sens (<3.5-35.0) ng/L B-Natriuretic Peptide 14 (<100) pg/mL Total Protein (6.5-8.0) g/dL Albumin (3.5-5.0) g/dL Lipase (8-78) U/L Urine Color Urine Appearance Urine pH (5.0-9.0) Ur Specific [place] (1.005-1.025) Urine Protein (Neg-Trace) mg/dL Urine Glucose (UA) (Negative) mg/dL Urine Ketones (Negative) mg/dL Urine Blood (Negative) Urine Nitrite (Negative) Ur Leukocyte Esterase (Negative) Ethyl Alcohol mg/dL COVID-19 (GENEVA) Negative (Negative) COVID-19 Clin Com See Note Influenza Type A (JORDAN) (Negative) Influenza Type B (JORDAN) (Negative) Influenza A & B Note 01/06/23 01/06/23 01/06/23 Range/Units 19:59 19:59 21:31 WBC (4.8-10.8) X10*3/uL RBC (4.60-5.80) X10*6/uL Hgb (14.0-18.0) g/dl Hct (42.0-52.0) % MCV (80.0-98.0) fL MCH (27.0-33.0) pg MCHC (31.0-36.0) g/dl RDW (11.0-16.0) % Plt Count (160-400) X10*3/uL MPV (9.4-12.4) fL Immature Gran % (Auto) (0.0-0.4) % Neut % (Auto) (45-73) % Lymph % (Auto) (20-40) % [place] % (Auto) (2-11) % Eos % (Auto) (0-4) % Baso % (Auto) (0-2) % Lymph # (Auto) (1.2-4.9) X10*3/uL [place] # (Auto) (0.1-1.2) X10*3/uL Eos # (Auto) (0.0-0.4) X10*3/uL Baso # (Auto) (0.0-0.2) X10*3/uL Abs Immat Gran (auto) (0.00-0.03) X10*3/uL Absolute Neuts (auto) (2.0-8.3) x10*3/uL Absolute Nucleated RBC (0.0-0.012) X10*3/uL Nucleated RBC % (auto) (0.0-0.2) /100WBC PT (10.0-13.1) SEC INR (0.9-1.1) Sodium (135-145) mmol/L Potassium (3.3-5.1) mmol/L Chloride (96-108) mmol/L Carbon Dioxide (22-29) mmol/L Anion Gap (12-20) BUN (9-16) mg/dL Creatinine (0.5-1.4) mg/dL Estim Creat Clear Calc Estimated GFR Random Glucose (60-115) mg/dL Calcium (8.4-10.2) mg/dL Magnesium (1.6-2.6) mg/dL Total Bilirubin (0.0-1.0) mg/dL AST (5-37) U/L ALT (0-40) U/L Alkaline Phosphatase (39-117) U/L Total Creatine Kinase (38-174) U/L Troponin I High Sens (<3.5-35.0) ng/L B-Natriuretic Peptide (<100) pg/mL Total Protein (6.5-8.0) g/dL Albumin (3.5-5.0) g/dL Lipase (8-78) U/L Urine Color Yellow Urine Appearance Clear Urine pH 5.0 (5.0-9.0) Ur Specific [place] >= 1.030 H (1.005-1.025) Urine Protein Trace (Neg-Trace) mg/dL Urine Glucose (UA) Negative (Negative) mg/dL Urine Ketones Negative (Negative) mg/dL Urine Blood Negative (Negative) Urine Nitrite Negative (Negative) Ur Leukocyte Esterase Negative (Negative) Ethyl Alcohol < 10 mg/dL COVID-19 (GENEVA) (Negative) COVID-19 Clin Com Influenza Type A (JORDAN) Negative (Negative) Influenza Type B (JORDAN) Negative (Negative) Influenza A & B Note See Note Independent Interpretation I performed an independent interpretation of an: EKG (Ventricular rate of 78, SC normal, QRS normal, QT/QTC normal. Showing left axis deviation no signs of acute ischemia. Normal sinus rhythm noted.) and CT Scan Radiology Impression Discussion of test interpretation with radiology: I have reviewed the radiologist's reading. Core Measures AMI core measures followed: Yes Measure exclusions: not indicated Critical Care Time Critical Care Time Critical Care Time: No Discharge Plan Discharge Clinical Impression: Fall, Viral illness, Skin tear of left upper extremity, Nausea & vomiting, Diarrhea, Hyperbilirubinemia Patient Disposition: Home, Self-Care Instructions: Acute Nausea and Vomiting (ED), Acute Diarrhea (ED), Viral Syndrome (ED), Fall Prevention (ED), Laceration Without Closure (ED) Additional Instructions: Take your medications as prescribed. If you were prescribed antibiotics today, it is important that you take your medication to their entirety, do not skip any doses, do not finish them early. Follow-up with your primary care provider this week. Return to the emergency department with new or worsening symptoms. Such as fevers, chills, chest pain, shortness of breath, nausea, vomiting, dizziness, headache, vision changes, lethargy In case of emergency call 911 Loperamide has been sent to the pharmacy for diarrhea take this as prescribed. Zofran has been sent for nausea and vomiting, please take as prescribed do not take more than prescribed dose as this can lead to cardiac abnormalities. Your bilirubin was noted to be 1.7, previously it was lower, please follow-up with your primary care provider for repeat laboratory studies and further evaluation of this. XR/XR hand LT min 3V IMPRESSION: No fracture or malalignment. Mild degenerative change at the first interphalangeal joint. ? CT/CT head/brain wo IV con IMPRESSION: 1.? No acute intracranial abnormality. 2.? No cervical spine fracture or traumatic subluxation. ? CT/CT chest, abd, pelvis. w IV con IMPRESSION: 1.? No acute traumatic finding of the chest, abdomen, or pelvis. No acute fractures. 2.? Colonic diverticulosis without diverticulitis. Prescriptions: New loperamide [Anti-Diarrheal (loperamide)] 2 mg capsule 2 mg PO Q6H PRN (Reason: loose stool) Qty: 30 0RF ondansetron 4 mg tablet,disintegrating 4 mg PO Q6H PRN (Reason: nausea and vomiting) Qty: 14 0RF No Action abiraterone 250 mg tablet 500 mg PO BEDTIME 90 Days Qty: 180 3RF Rx Instructions: must be taken on empty stomach, at least 1 hr before or 2 hrs after a meal/food prednisone 2.5 mg tablet 2.5 mg PO BID 30 Days Qty: 60 5RF cholecalciferol (vitamin D3) 50 mcg (2,000 unit) capsule 1 cap PO DAILY atorvastatin 40 mg tablet 1 tab PO BEDTIME tamsulosin 0.4 mg capsule 1 cap PO BID tramadol 50 mg tablet 50 mg PO Q6H PRN (Reason: pain) Qty: 20 0RF meclizine 25 mg tablet 25 mg PO BID PRN (Reason: dizziness) Qty: 10 0RF riboflavin (vitamin B2) 100 mg Tablet 100 mg PO BID magnesium 250 mg Tablet 250 mg PO BID Eliquis 5 mg Tablet 10 mg PO BID Qty: 90 0RF Rx Instructions: take Eliquis 5 mg 2 tablets twice daily for 7 days, followed by Eliquis 5 mg 1 tablet twice daily topiramate 100 mg Tablet 100 mg PO BID Qty: 60 0RF levetiracetam 1,000 mg Tablet 1,000 mg PO BID Qty: 60 0RF amlodipine 2.5 mg tablet 2.5 mg PO DAILY levetiracetam 500 mg tablet 1,000 mg PO BID Referrals: Eric Dinh MD [Primary Care Provider] - 2 days
[2023-01-06 20:06] LABS: MANUAL DIFF FLAG NO
[2023-01-06 20:07] LABS: Basophils Percent Auto 0.5 % (0-2); Eosinophils Absolute Auto 0.1 X10*3/uL (0.0-0.4); Eosinophils Percent Auto 1.1 % (0-4); Hematocrit 44.3 % (42.0-52.0); Hemoglobin 14.7 g/dl (14.0-18.0); Imm Gran Abs Auto 0.01 X10*3/uL (0.00-0.03); Imm Gran Pct Auto 0.2 % (0.0-0.4); Lymphocytes Percent Auto 14.8 % (20-40); Mean Corpuscular HGB Conc 33.2 g/dl (31.0-36.0); Mean Corpuscular Hemoglobin 33.6 pg (27.0-33.0); Mean Corpuscular Volume 101.1 fL (80.0-98.0); Mean Platelet Volume 9.9 fL (9.4-12.4); Monocytes Absolute Auto 0.2 X10*3/uL (0.1-1.2); Monocytes Percent Auto 2.3 % (2-11); Neutrophils Absolute Auto 5.4 x10*3/uL (2.0-8.3); Neutrophils Percent Auto 81.1 % (45-73); Platelet Count 216 X10*3/uL (160-400); Red Blood Count 4.38 X10*6/uL (4.60-5.80); Red Cell Distribution Width 13.3 % (11.0-16.0); White Blood Count 6.6 X10*3/uL (4.8-10.8)
[2023-01-06 20:18] LABS: INTERNATIONAL NORM RATIO 1.1 (0.9-1.1); Prothrombin Time 12.4 SEC (10.0-13.1)
[2023-01-06 20:22] LABS: COVID-19 Test Negative (Negative); IDNOW Serial# BCCEAD1C
[2023-01-06 20:23] LABS: Alanine Aminotransferase 45 U/L (0-40); Alkaline Phosphatase 102 U/L (39-117); Anion Gap 12 (12-20); Aspartate Amino Transferase 30 U/L (5-37); Bilirubin Total 1.7 mg/dL (0.0-1.0); Blood Urea Nitrogen 33 mg/dL (9-16); Calcium 8.9 mg/dL (8.4-10.2); Carbon Dioxide 22 mmol/L (22-29); Chloride 114 mmol/L (96-108); Creatinine Clr Calc Pharmacy 70.6; Estimated Glomerular Filt Rate 55; Ethanol < 10 mg/dL; Glucose Random 129 mg/dL (60-115); Lipase 35 U/L (8-78); Magnesium 2.2 mg/dL (1.6-2.6); Potassium 4.3 mmol/L (3.3-5.1); Sodium 144 mmol/L (135-145); Total Protein 7.1 g/dL (6.5-8.0)
[2023-01-06 20:24] LABS: IDNOW Serial# 9DB6401D; Influenza A Negative (Negative); Influenza B2 Negative (Negative)
[2023-01-06 20:29] LABS: B Type Natriuretic Peptide 14 pg/mL (<100)
[2023-01-06] MEDS: Bacitracin Oint 0.9 GM PACKET 1 APPL TOPICAL (20:31)
[2023-01-06] MEDS: Diphth,Pertus(ACell),Tet Adult 0.5 ML SYRINGE IM (20:31)
[2023-01-06 20:37] LABS: Troponin-I High Sensitivity < 3.5 ng/L (<3.5-35.0)
[2023-01-06] MEDS: iohexoL 350 MG/ML 100 ML INFUS..BTL IV (21:02)
[2023-01-06] MEDS: 0.9 % Sodium Chloride 1,000 ML 999 ML IV (21:07)
[2023-01-06 21:38] LABS: Appearance Urine Clear; Color Urine Yellow; Glucose Urine UA Negative (Negative); Leukocyte Esterase Urine Negative (Negative); Nitrite Urine Negative (Negative); Specific Gravity - Urine >= 1.030 (1.005-1.025); Urine Blood Negative (Negative); Urine Ketones Negative (Negative); Urine Protein Trace mg/dL (Neg-Trace)
[2023-01-06 23:02] VITALS: BP 115/66; BP 118/70; PULSE 109; PULSE 94
[2023-01-06 23:52] VITALS: BP 102/75; PULSE 97; RESP 22; TEMP 36.7; O2SAT 93
[2023-01-07] VITALS (9 sets, daily range): BP systolic 89–123; BP diastolic 38–72; PULSE 64–114; RESP 14–34; TEMP 36.2–38.9; O2SAT 93–98
--- NOTE | 2023-01-07 06:11 | PC.NURSE ---
Patient accientally pulled out IV line. Patient refused placement of a new IV line. Dr. Carrillo notified. Per MD no IV line is needed at this time.
--- NOTE | 2023-01-07 08:22 | PC.NURSE ---
Patient calm and cooperative on stretcher, patient attempting to adjust himself in bed. This nurse assisted him to repositioning onto his side. Patient stating that he was feeling more comfortable.
--- NOTE | 2023-01-07 08:25 | PC.NURSE ---
pt alert, skin pwd. sinus tach on monitor. Pt states I can't talk but then is able to answer all questions w/o difficutly. Dry MM. recalls fall with consistency as compaired to RN report with jung. describes falling in bathroom with head strike and LOC. No unilat neuro deficits noted. declining breakfast. awaits PT eval which will occur sunday am. pt is aware of plan of care. PO fluids encouraged by this RN and patient assisted to drink. cleansed of incontinent urine. pt unable to perform bed mobility. 2 person assist for repositioning. does have equal hand grasps and facial symmety. provider made aware of rectal temp 102.1
[2023-01-07] MEDS: Acetaminophen 325 MG TABLET 975 MG PO (09:05)
[2023-01-07 09:06] LABS: MANUAL DIFF FLAG NO
[2023-01-07 09:08] LABS: Basophils Percent Auto 0.4 % (0-2); Eosinophils Absolute Auto 0.1 X10*3/uL (0.0-0.4); Eosinophils Percent Auto 0.7 % (0-4); Hematocrit 45.1 % (42.0-52.0); Hemoglobin 14.6 g/dl (14.0-18.0); Imm Gran Abs Auto 0.02 X10*3/uL (0.00-0.03); Imm Gran Pct Auto 0.3 % (0.0-0.4); Lymphocytes Absolute Auto 0.7 X10*3/uL (1.2-4.9); Lymphocytes Percent Auto 10.5 % (20-40); Mean Corpuscular HGB Conc 32.4 g/dl (31.0-36.0); Mean Corpuscular Hemoglobin 33.2 pg (27.0-33.0); Mean Corpuscular Volume 102.5 fL (80.0-98.0); Mean Platelet Volume 9.7 fL (9.4-12.4); Monocytes Absolute Auto 0.3 X10*3/uL (0.1-1.2); Monocytes Percent Auto 4.6 % (2-11); Neutrophils Absolute Auto 5.7 x10*3/uL (2.0-8.3); Neutrophils Percent Auto 83.5 % (45-73); Platelet Count 182 X10*3/uL (160-400); Red Cell Distribution Width 13.4 % (11.0-16.0); White Blood Count 6.8 X10*3/uL (4.8-10.8)
[2023-01-07 09:19] LABS: Lactic Acid 1.4 mmol/L (0.5-2.0)
[2023-01-07 09:25] LABS: Alanine Aminotransferase 41 U/L (0-40); Albumin Level 3.5 g/dL (3.5-5.0); Alkaline Phosphatase 88 U/L (39-117); Anion Gap 12 (12-20); Aspartate Amino Transferase 28 U/L (5-37); Bilirubin Direct 0.4 mg/dL (0.0-0.5); Bilirubin Total 1.4 mg/dL (0.0-1.0); Blood Urea Nitrogen 37 mg/dL (9-16); C Reactive Protein 6.47 mg/dL (< or = 0.50); Calcium 8.4 mg/dL (8.4-10.2); Carbon Dioxide 18 mmol/L (22-29); Chloride 114 mmol/L (96-108); Creatinine Clr Calc Pharmacy 60.3; Estimated Glomerular Filt Rate 46; Glucose Random 139 mg/dL (60-115); Potassium 4.3 mmol/L (3.3-5.1); Sodium 140 mmol/L (135-145); Total Protein 6.5 g/dL (6.5-8.0)
[2023-01-07 09:49] LABS: Erythrocyte Sedimentation Rate 5 MM/HR (0-15)
--- NOTE | 2023-01-07 10:21 | MHC.CM.ED ---
Received consult for assistance w/d/c planning needs: Met with pt who states he had some falls at home and isn't able to ambulate: Imaging and other w/u negative. Pt w/long standing hx of parkinson's: uses a walker, has no services presently but does have family support from spouse and dtr who lives upstairs. They assist w/transportation/ADL's. Pt has a [facility] and HCP on file: verified. Pt states he has been to [facility] in the past and would consider a return if needed. Informed pt that PT will conduct an evaluation on Sunday to determine needs. Pt agreeable to board in ED until then. CM to contact spouse to inform her of same. Will also refer to Acute rehab given his parkinson hx. Fully vaxed/boosted: BLS transport if SNF: family to transport if home.
--- NOTE | 2023-01-07 10:24 | PC.NURSE ---
taking meds with full containe of apple sauce. no difficulty. awaits rturn [facility].
[2023-01-07] MEDS: 0.9 % Sodium Chloride 1,000 ML 999 ML IV (10:25)
--- NOTE | 2023-01-07 10:40 | PHA.MEDREC ---
Pharmacy Consult ? Medication Reconciliation Pharmacy has completed the medication reconciliation. Spoke with patient in the ED and confirmed all medications.
--- NOTE | 2023-01-07 14:56 | PC.NURSE ---
cleansed of loose stool. small amount. skin pwd. alert. awaitds admission.
--- NOTE | 2023-01-07 15:16 | PC.NURSE ---
Patient resting on stretcher on his side at this time. No apparent distress noted at this time.
--- NOTE | 2023-01-07 15:38 | MHC.EDTECH ---
this pct assumed care of pt at 1500 ,vitals sign taken ,pt was boosted up in bed ,pt sleeping at this time .
--- NOTE | 2023-01-07 18:23 | PC.NURSE ---
Patient incontinent of large amount of loose stool. Stool collected and sent down to lab. Patient given shakir care and sheets changed.
--- NOTE | 2023-01-07 18:31 | MHC.EDTECH ---
pt refused dinner ,said his stomach is upset ,asked for water ,rn aware .
[2023-01-07 19:28] LABS: CDiff Gene PCR NEGATIVE (Negative)
--- NOTE | 2023-01-07 20:14 | PC.NURSE ---
I resumed care of the pt at 1900. Pt is resting quietly in bed at this time. A&Ox4, GCS 15. Pt has no complaints at this time. Lights were dimmed per pt request and pt is trying to sleep.
[2023-01-08] MEDS: ondansetron HCL 4 MG/2 ML VIAL IVPUSH (03:08)
--- NOTE | 2023-01-08 03:30 | PC.NURSE ---
Pt reporting some nausea and requesting zofran. Zofran was ordered and administered. Pt was gound to be incontinent of stool. Bowel movement was small and liquidy. Pt was cleaned and repositioned for comfort. No other complaints at this time.
[2023-01-08 05:34] VITALS: BP 114/60; PULSE 69; RESP 20; TEMP 36.6; O2SAT 98
[2023-01-08 08:10] VITALS: BP 116/68; PULSE 67; TEMP 36.4; O2SAT 97
--- NOTE | 2023-01-08 08:29 | MHC.EDTECH ---
patient wash and clean , bed change. patient relaxing.
--- NOTE | 2023-01-08 08:35 | PC.NURSE ---
microbiology called, stool sample was not enough to test.
--- NOTE | 2023-01-08 09:44 | PC.NURSE ---
Pt ambulated with PT in hallway and to the restroom.
[2023-01-08 10:00] VITALS: BP 125/68; PULSE 89; RESP 15; O2SAT 97
[2023-01-08] MEDS: Tamsulosin HCL 0.4 MG CAPSULE PO (10:42)
[2023-01-08] MEDS: levETIRAcetam 1,000 MG TABLET 1000 MG PO (10:42)
[2023-01-08] MEDS: predniSONE 2.5 MG TABLET PO (10:42)
[2023-01-08] MEDS: amLODIPine Besylate 2.5 MG TABLET PO (10:42)
[2023-01-08] MEDS: Apixaban 5 MG TABLET PO (10:42)
[2023-01-08] MEDS: Topiramate 100 MG TABLET PO (10:42)
[2023-01-08] MEDS: Cholecalciferol (Vitamin D3) 25 MCG TABLET 50 MCG PO (10:42)
--- NOTE | 2023-01-08 11:44 | MHC.CM.ED ---
Addendum entered by Juli De Luna 01/08/23 12:14: Rachel REILL[facility] accepted patient. Abbey from [facility] aware. Original Note: Patient remains in ER. Physical therapy eval completed. Home therapy is recommended. Met with patient. Patient agreeable to return home with services. Patient is active with [facility]. T/W spoke with Abbey at [facility]. Referral made via [facility]. Rachel REILLY can accept patient onces PCP is verified. Patient states his daughter, Sheela will transport patient home. T/W spoke with Sheela via telephone. Sheela will be here around 1230pm to transport patient home. Patient, Rena RN and Desiree AVALOS aware. Continue to monitor for d/c needs.
== END 2023-01-08 12:50 | disposition home or self-care (01) ==
PROVIDERS: Nurse Practitioner Family; Physician Assistant; Emergency Provider Emergency Medicine; PCP Family Medicine
DX: B34.9 Viral infection, unspecified (principal); N17.9 Acute kidney failure, unspecified; R50.9 Fever, unspecified; R11.2 Nausea with vomiting, unspecified; R19.7 Diarrhea, unspecified; E80.6 Other disorders of bilirubin metabolism; D72.829 Elevated white blood cell count, unspecified; K57.90 Diverticulosis of intestine, part unspecified, without perforation or abscess without bleeding; R53.1 Weakness; S61.412A Laceration without foreign body of left hand, initial encounter; W17.89XA Other fall from one level to another, initial encounter; Z20.822 Contact with and (suspected) exposure to COVID-19; I10 Essential (primary) hypertension; I67.89 Other cerebrovascular disease; E78.5 Hyperlipidemia, unspecified; G20 Parkinson's disease; C61 Malignant neoplasm of prostate; C79.51 Secondary malignant neoplasm of bone; C79.11 Secondary malignant neoplasm of bladder; Z86.711 Personal history of pulmonary embolism; Z87.440 Personal history of urinary (tract) infections; Z79.01 Long term (current) use of anticoagulants; Z79.02 Long term (current) use of antithrombotics/antiplatelets; Z79.899 Other long term (current) drug therapy; Y93.89 Activity, other specified; Y92.012 Bathroom of single-family (private) house as the place of occurrence of the external cause; Y99.9 Unspecified external cause status
CPT/HCPCS: 36415; 70450; 71045; 71260; 72125; 73130; 74177; 80048; 80053; 80076; 81003; 82077; 82550; 83605; 83690; 83735; 83880; 84484; 85025; 85610; 85652; 86140; 87040; 87493; 87502; 87635; 90471; 90715; 93005; 96360; 96361; 96374; 97162; 99285; J2405; Q9967

== ENCOUNTER 2023-02-02 09:50 | Outpatient (REF) | payer OTHER, SELFPAY ==
[2023-02-02 16:41] LABS: Urine Cytology See Pathology rpt
== END 2023-02-02 09:51 | disposition home or self-care (01) ==
LOC: HO.LAB 09:50
PROVIDERS: PCP Family Medicine; Visit Provider Urology
DX: C67.1 Malignant neoplasm of dome of bladder (principal); C61 Malignant neoplasm of prostate; C79.51 Secondary malignant neoplasm of bone; M85.80 Other specified disorders of bone density and structure, unspecified site; Z79.01 Long term (current) use of anticoagulants; Z79.899 Other long term (current) drug therapy
CPT/HCPCS: 52000; 88112; 99212

== ENCOUNTER 2023-04-02 10:04 | Day surgery (SDC) | payer OTHER, SELFPAY ==
[2023-03-28 15:22] VITALS: BMI 31.5
--- NOTE | 2023-03-30 10:52 | HO.ANESPROP2 ---
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 (Acute 05/21/21) COVID (Acute) Pulmonary emboli (Acute) Bladder cancer (Acute) Past Medical History Medical History (Updated 03/28/23 @ 15:09 by Indigo Morrison, RN) Bladder cancer Bladder tumor Bone cancer Cerebral microvascular disease CKD (chronic kidney disease), stage III Complex partial seizure disorder Dizziness Elevated cholesterol Essential hypertension (05/16/21) Hematuria HTN (hypertension) Hx of migraines Hyperlipidemia (05/16/21) Malignant tumor of prostate (05/16/21) Prostate CA Pulmonary emboli Seizure disorder Tremor Family History Family history of problems with anesthesia: No Surgical History Surgical History (Updated 03/28/23 @ 14:59 by Indigo Morrison RN) H/O prostate biopsy History of cystoscopy Hx of colonoscopy History of Problems with Anesthesia: No Social History Social History Household Members: Spouse Housing: House Are you a primary career development counselor to a significant other at home: No Do you presently have visiting nurse or other home services: No Alcohol intake: never Patient Tobacco Use Status: Never used Tobacco Second Hand Smoke Exposure: No Use of substances other than those prescribed or required for medical reasons: No Have you been hit, kicked, punched, or otherwise hurt by someone within the past year? If so, by whom?: No Advance Directives: Yes Advance Directives Information Provided: Yes Advance Directives on File: Yes Advance Directives Date on File: 05/22/22 Recently lost weight without trying: No Eating poorly because of decreased appetite: No Nutrition Risks: No Nutritional Risk service: No Current occupational status: retired Meds Allergies Allergy/AdvReac Type Severity Reaction Status Date / Time oxycodone [Percocet] AdvReac Intermediate face got Verified 03/28/23 15:04 really red Home Medications Medication Instructions Recorded Confirmed Last Taken Type atorvastatin 40 mg tablet 1 tab PO BEDTIME 07/19/20 03/28/23 04/02/23 History cholecalciferol (vitamin D3) 50 1 cap PO DAILY 12/07/20 03/28/23 04/02/23 History mcg (2,000 unit) capsule tamsulosin 0.4 mg capsule 1 cap PO BID 07/10/21 03/28/23 04/02/23 History amlodipine 2.5 mg tablet 2.5 mg PO DAILY 06/29/22 03/28/23 04/02/23 History magnesium 250 mg tablet 250 mg PO BID 09/10/22 03/28/23 04/02/23 History riboflavin (vitamin B2) 100 mg 100 mg PO BID 09/10/22 03/28/23 04/02/23 History tablet levetiracetam 500 mg tablet 1,000 mg PO BID 10/12/22 03/28/23 04/02/23 History apixaban 5 mg tablet (Eliquis) 5 mg PO BID 01/07/23 03/28/23 03/29/23 History Exam Exam Date and Time: March 30, 2023 1052 Height,Weight and Vital Signs: Height 5 ft 8.5 in Weight 95.254 kg Pertinent Lab Results Pertinent Lab Results: Laboratory Tests 01/07/23 01/07/23 09:00 09:00 WBC 6.8 Hgb 14.6 Hct 45.1 Plt Count 182 Sodium 140 Potassium 4.3 Chloride 114 H Carbon Dioxide 18 L BUN 37 H Creatinine 1.51 H Narrative Narrative: EKG 12/2022 Vent. Rate : 078 BPM ? ? Atrial Rate : 078 BPM ?? P-R Int : 148 ms? QRS Dur : 108 ms ? ? QT Int : 408 ms ? ? ? P-R-T Axes : 024 -76 030 degrees ?? QTc Int : 465 ms ? Normal sinus rhythm Left axis deviation Cannot rule out Anterior infarct , age undetermined Abnormal ECG When compared with ECG of 10-SEP-2022 12:27, No significant change was found Assessment and Plan Assessment Anesthesia Assessment: Chart Reviewed Final Anesthetic Review Family History of Problems with Anesthesia: No History of Problems with Anesthesia: No Documented by User: Onofre Coughlin MD 04/02/23 13:05 PMFSH Past Medical History Medical History (Updated 03/28/23 @ 15:09 by Indigo Morrison, RN) Bladder cancer Bladder tumor Bone cancer Cerebral microvascular disease CKD (chronic kidney disease), stage III Complex partial seizure disorder Dizziness Elevated cholesterol Essential hypertension (05/16/21) Hematuria HTN (hypertension) Hx of migraines Hyperlipidemia (05/16/21) Malignant tumor of prostate (05/16/21) Prostate CA Pulmonary emboli Seizure disorder Tremor Surgical History Surgical History (Updated 03/28/23 @ 14:59 by Indigo Morrison RN) H/O prostate biopsy History of cystoscopy Hx of colonoscopy Social History Social History Household Members: Spouse Housing: House Are you a primary career development counselor to a significant other at home: No Do you presently have visiting nurse or other home services: No Alcohol intake: never Patient Tobacco Use Status: Never used Tobacco Second Hand Smoke Exposure: No Use of substances other than those prescribed or required for medical reasons: No Have you been hit, kicked, punched, or otherwise hurt by someone within the past year? If so, by whom?: No Advance Directives: Yes Advance Directives Information Provided: Yes Advance Directives on File: Yes Advance Directives Date on File: 05/22/22 Recently lost weight without trying: No Eating poorly because of decreased appetite: No Nutrition Risks: No Nutritional Risk service: No Current occupational status: retired Meds Allergies Allergy/AdvReac Type Severity Reaction Status Date / Time oxycodone [Percocet] AdvReac Intermediate face got Verified 03/28/23 15:04 really red Home Medications Medication Instructions Recorded Confirmed Last Taken Type atorvastatin 40 mg tablet 1 tab PO BEDTIME 07/19/20 03/28/23 04/02/23 History cholecalciferol (vitamin D3) 50 1 cap PO DAILY 0203/28/23 04/02/23 History mcg (2,000 unit) capsule tamsulosin 0.4 mg capsule 1 cap PO BID 07/10/21 03/28/23 04/02/23 History amlodipine 2.5 mg tablet 2.5 mg PO DAILY 06/29/22 03/28/23 04/02/23 History magnesium 250 mg tablet 250 mg PO BID 09/10/22 03/28/23 04/02/23 History riboflavin (vitamin B2) 100 mg 100 mg PO BID 09/10/22 03/28/23 04/02/23 History tablet levetiracetam 500 mg tablet 1,000 mg PO BID 10/12/22 03/28/23 04/02/23 History apixaban 5 mg tablet (Eliquis) 5 mg PO BID 01/07/23 03/28/23 03/29/23 History Exam Airway Mallampati Class: II TM Dist: >3cm Neck ROM: Full Heart: ok Lungs: ok Assessment and Plan Assessment Anesthesia Assessment: Anesthesia Plan Discussed Final Anesthetic Review NPO: Yes ASA Class: III Final Preanesthetic Review: No Changes in Pt Med Stat, Meds/Allgs Chart Reviewed, Consent Obtained/Reviewed and Anes Risks/Benef Reviewed Patient Risk: Intermediate Procedure Risk: Low Anesthetic Plan Anesthetic Plan: GA and Agree w/ Assess. and Plan Disposition: Standard PACU
[2023-04-02] VITALS (10 sets, daily range): BP systolic 109–144; BP diastolic 71–90; PULSE 56–85; RESP 14–18; TEMP 36.1–36.3; O2SAT 95–100; BMI 28.2
[2023-04-02] MEDS: Lactated Ringers 1,000 ML 100 ML IVCONT (11:05)
--- NOTE | 2023-04-02 13:24 | W.PM.OPN ---
Operative Note Operative Note Date of Service: 04/02/23 Narrative: PreOperative Diagnosis: bladder cancer Post Operative Diagnosis: bladder cancer Procedure: cystoscopy, bladder biopsy, fulguration Surgeon: Dr Dom Maier Anesthesia: LMA Indications for procedure: Superficial bladder cancer. Here for cystoscopy, bladder biopsy. Evaluation. Procedure: After informed consent was verified the patient was brought to the operating room and placed in a supine position. Anesthesia was administered per protocol. The patient was placed in modified dorsal lithotomy position and prepped and draped in a sterile fashion. Safety pause time-out was performed. Antibiotics being given. Cystoscopy was performed. Small area on dome - biopsy performed with fulgeration. 40mg MMC in 20cc N Luis Felipe was instilled into the bladder. The flow from the catheter was left clamped. The inflow to the catheter was attached to a 3 L normal saline bag. The patient tolerated the procedure well. They were extubated in the operating room and transferred in stable condition to the recovery area. MMC will remain in the bladder for 1 hour. At the completion of 1 hour the clamp will be removed. The MMC will be allowed to egress to the urine collection bag. The 3 L bag of normal saline will be run at maximum rate through the bladder in order to dilute any residual MMC. The Blanco catheter will then be removed. The patient tolerated the procedure well. They were extubated in operating room and transferred in stable conditions recovery area. Pathology: Bladder biopsies Drains: None
[2023-04-02] MEDS: Acetaminophen 325 MG TABLET 650 MG PO (14:30)
== END 2023-04-02 16:04 | disposition home or self-care (01) ==
PROVIDERS: PCP Family Medicine; Visit Provider Urology
PROC: 0TBB8ZZ Excision of Bladder, Via Natural or Artificial Opening Endoscopic (ICD-10-PCS; CPT 52204; principal; 2023-04-02 12:10)
DX: C67.9 Malignant neoplasm of bladder, unspecified (principal); D41.4 Neoplasm of uncertain behavior of bladder; C79.51 Secondary malignant neoplasm of bone; I12.9 Hypertensive chronic kidney disease with stage 1 through stage 4 chronic kidney disease, or unspecified chronic kidney disease; N18.30 Chronic kidney disease, stage 3 unspecified; I67.9 Cerebrovascular disease, unspecified; R53.1 Weakness; E78.00 Pure hypercholesterolemia, unspecified; G40.209 Localization-related (focal) (partial) symptomatic epilepsy and epileptic syndromes with complex partial seizures, not intractable, without status epilepticus; G43.909 Migraine, unspecified, not intractable, without status migrainosus; Z86.711 Personal history of pulmonary embolism; Z79.01 Long term (current) use of anticoagulants; Z86.16 Personal history of COVID-19
CPT/HCPCS: 52204; 88307; 88342; 88360; J1956; J3010; J9280

== ENCOUNTER 2023-04-09 08:57 | Outpatient (REF) | payer OTHER, SELFPAY ==
[2023-04-09 12:01] LABS: Prostate Specific Antigen 0.49 ng/mL (<0.05-4.0)
[2023-04-15 14:04] LABS: Testosterone, Total <1 ng/dL (250-1100)
== END 2023-04-09 08:58 | disposition home or self-care (01) ==
LOC: HO.LAB 08:57
PROVIDERS: PCP Family Medicine; Visit Provider Urology
DX: Z12.5 Encounter for screening for malignant neoplasm of prostate (principal); C61 Malignant neoplasm of prostate; C79.51 Secondary malignant neoplasm of bone
CPT/HCPCS: 36415; 84153; 84403

== ENCOUNTER 2023-04-22 11:02 | Emergency (ER) | payer OTHER, SELFPAY ==
[2023-04-22 11:09] VITALS: BP 145/66; BP 153/88; PULSE 55; PULSE 60; RESP 18; TEMP 36.3; O2SAT 100; O2SAT 98; BMI 29.2
--- NOTE | 2023-04-22 11:33 | ED.MALEGU ---
HPI - Male Genitourinary General Chief complaint: Urogenital-Male Stated complaint: Back pain, bladder issue x couple days per EMS Time Seen by Provider: 04/22/23 11:21 Source: patient and EMS Mode of arrival: EMS Limitations: no limitations History of Present Illness HPI Narrative: A 72-year-old male came in for evaluation of low back pain and difficulty breathing. Patient is known to have malignant neoplasm of the urinary bladder that was biopsied by Dr. Maier 3 weeks ago, patient been having low back pain since the biopsy that respond well to Advil, declined any fever or chills, no flank pain, no nausea, no vomiting. Patient also been having shortness of breath for the past 2 days no lower extremity swelling or edema, no coughing, no fever, no chills. Related Data Home Medications Medication Instructions Recorded Confirmed atorvastatin 40 mg tablet 1 tab PO BEDTIME 07/19/20 04/11/23 cholecalciferol (vitamin D3) 50 1 cap PO DAILY 12/07/20 04/11/23 mcg (2,000 unit) capsule tamsulosin 0.4 mg capsule 1 cap PO BID 07/10/21 04/11/23 amlodipine 2.5 mg tablet 2.5 mg PO DAILY 06/29/22 04/11/23 magnesium 250 mg tablet 250 mg PO BID 09/10/22 04/11/23 riboflavin (vitamin B2) 100 mg 100 mg PO BID 09/10/22 04/11/23 tablet levetiracetam 500 mg tablet 1,000 mg PO BID 10/12/22 04/11/23 Previous Rx's Medication Instructions Recorded abiraterone 250 mg tablet 500 mg PO BEDTIME 90 days #180 tabs 07/07/22 meclizine 25 mg tablet 25 mg PO BID PRN dizziness #10 tabs 08/15/22 topiramate 100 mg tablet 100 mg PO BID #60 tabs 09/12/22 loperamide 2 mg capsule 2 mg PO Q6H PRN loose stool #30 01/06/23 (Anti-Diarrheal (loperamide)) caps ondansetron 4 mg disintegrating 4 mg PO Q6H PRN nausea and 01/06/23 tablet vomiting #14 tabs Allergies Allergy/AdvReac Type Severity Reaction Status Date / Time oxycodone [Percocet] AdvReac Intermediate face got Verified 03/28/23 15:04 really red Review of Systems Review of Systems: All other systems are reviewed and are negative Constitutional: Reports as per HPI and Reports no additional constitutional complaints Eyes: Reports as per HPI and Reports no additional eye complaints Reports system reviewed and no additional complaints, except as documented Cardiovascular: Reports as per HPI and Reports no additional cardiovascular complaints Respiratory: Reports as per HPI and Reports no additional respiratory complaints Gastrointestinal: Reports as per HPI and Reports no additional gastrointestinal complaints Genitourinary: Reports no additional female genitourinary complaints Musculoskeletal: Reports no additional musculoskeletal complaints Skin/Breast: Reports system reviewed and no additional complaints, except as docu Psychiatric: Reports no additional psychiatric complaints Endocrine: Reports no additional endocrine complaints Hematologic/Lymphatic: Reports no additional hematologic/lymphatic complaints Allergic/Immunologic: Reports no additional allergic/immunologic complaints Reports system reviewed and no additional complaints, except as documented and Reports Abnormal speech present [facility] Past Medical History Medical History Bladder cancer Bladder tumor Bone cancer Cerebral microvascular disease CKD (chronic kidney disease), stage III Complex partial seizure disorder Dizziness Elevated cholesterol Essential hypertension (05/16/21) Hematuria HTN (hypertension) Hx of migraines Hyperlipidemia (05/16/21) Malignant tumor of prostate (05/16/21) Prostate CA Pulmonary emboli Seizure disorder Tremor Surgical History H/O prostate biopsy History of cystoscopy Hx of colonoscopy Social History Social History Household Members: Spouse Housing: House Are you a primary client care representative to a significant other at home: No Do you presently have visiting nurse or other home services: No Alcohol intake: never Patient Tobacco Use Status: Never used Tobacco Second Hand Smoke Exposure: No Advance Directives: Yes Advance Directives on File: Yes Advance Directives Date on File: 05/22/22 service: No Current occupational status: retired Physical Exam Vital Signs: Vital Signs: Last Vital Signs Temp 97.4 F 04/22/23 11:09 Pulse 55 04/22/23 11:09 Resp 18 04/22/23 11:09 BP 145/66 H 04/22/23 11:09 Pulse Ox 100 04/22/23 11:09 O2 Del Method Room Air 04/22/23 11:09 BMI result Body Mass Index 29.2 Vital signs have been reviewed as appeared to be correct. Blood pressure normal. Heart rate normal. Respiration rate normal. Temperature normal. Oxygen saturation normal. Appearance: Alert. Oriented X3. No acute distress. Head: Normal external exam. Normocephalic. Atraumatic. No Ayers signs noted. No raccoon eyes noted Eyes: PERRLA. EOMI. Conjunctiva and sclera normal. Eyelids normal. ENT: TM's Normal. Pharynx normal. Uvula midline. Moist mucous membranes. No trismus noted. No drooling noted. No muffled voice noted. Neck: Normal inspection. Neck supple. FROM. No adenopathy. Thyroid Normal. No meningeal signs. No neck mass noted. CVS: Normal heart rate and rhythm. Heart sound normal. No murmurs noted. Pulses normal throughout. Respiratory: No respiratory distress. Painless inspiration. Breath sounds normal. No wheezes/rales/rhonchi noted. Chest nontender. No accessory muscle usage noted or decreased air movement noted. Abdomen: Soft and nontender. Bowel sounds normal in all 4 quadrants. No distention noted. No organomegaly noted. No visible injury noted. Back: No CVA tenderness. Full range of motion noted. Skin: Skin warm and dry. Normal skin color. Normal skin turgor. No rashes/lesions/lacerations noted. Extremities: No lower extremity edema. Extremities exhibit normal range of motion. Extremities nontender. Neuro: Oriented X 3. Cranial nerve exam: II-XII are grossly intact No motor deficit. No sensory deficit. Reflexes normal. Course Course Course Narrative: Acute on chronic low back pain for 2 weeks that respond well to Advil, patient is known to have superficial urinary bladder malignancy, patient had bone scan done 3 months ago shows no metastases to the lumbar spine. Patient was given ibuprofen in the emergency department with good response the patient pain, UA shows no UTI. Patient also been complaining of shortness of breath patient has a normal respiratory rate and O2 sat in the emergency department chest x-ray is unremarkable for pathology, negative D-dimer making PE is unfavorable diagnoses in light of normal vital signs. Medications Administered Discontinued Medications Generic Name Dose Route Start Last Admin Trade Name Freq PRN Reason Stop Dose Admin Oxycodone HCl 5 mg 04/22/23 11:30 04/22/23 11:46 Oxycodone Hcl Immed Release 5 Mg Tablet PO 04/22/23 11:31 5 mg ONCE ONE Administration Medical Decision Making Differential Diagnosis Differential Diagnoses: The differential diagnosis associated with the presentation includes (Chronic back pain, spine metastases, UTI, pneumonia, PE, anemia, electrolyte abnormalities.) Admission/Observation Consideration of admission/observation: Escalation of care including admission/observation considered Lab Data MDM Lab Attestation statement: I reviewed the patient's lab results. 04/22/23 11:41 04/22/23 11:41 Labs: Lab Results 04/22/23 04/22/23 04/22/23 Range/Units 11:41 11:41 11:41 WBC 6.6 (4.8-10.8) X10*3/uL RBC 3.54 L (4.60-5.80) X10*6/uL Hgb 11.9 L (14.0-18.0) g/dl Hct 36.4 L (42.0-52.0) % MCV 102.8 H (80.0-98.0) fL MCH 33.6 H (27.0-33.0) pg MCHC 32.7 (31.0-36.0) g/dl RDW 13.5 (11.0-16.0) % Plt Count 196 (160-400) X10*3/uL MPV 9.8 (9.4-12.4) fL Immature Gran % (Auto) 0.3 (0.0-0.4) % Neut % (Auto) 60.6 (45-73) % Lymph % (Auto) 29.4 (20-40) % Stone % (Auto) 8.0 (2-11) % Eos % (Auto) 1.2 (0-4) % Baso % (Auto) 0.5 (0-2) % Lymph # (Auto) 2.0 (1.2-4.9) X10*3/uL Stone # (Auto) 0.5 (0.1-1.2) X10*3/uL Eos # (Auto) 0.1 (0.0-0.4) X10*3/uL Baso # (Auto) 0.0 (0.0-0.2) X10*3/uL Abs Immat Gran (auto) 0.02 (0.00-0.03) X10*3/uL Absolute Neuts (auto) 4.0 (2.0-8.3) x10*3/uL Absolute Nucleated RBC 0.000 (0.0-0.012) X10*3/uL Nucleated RBC % (auto) 0.0 (0.0-0.2) /100WBC D-Dimer High Sensitivty 154 NG/ML Sodium 141 (135-145) mmol/L Potassium 4.2 (3.3-5.1) mmol/L Chloride 114 H (96-108) mmol/L Carbon Dioxide 22 (22-29) mmol/L Anion Gap 9 L (12-20) BUN 34 H (9-16) mg/dL Creatinine 1.25 (0.5-1.4) mg/dL Estim Creat Clear Calc 66.6 Estimated GFR 57 Random Glucose 97 (60-115) mg/dL Calcium 9.3 D (8.4-10.2) mg/dL Total Bilirubin 1.2 H (0.0-1.0) mg/dL Direct Bilirubin 0.4 (0.0-0.5) mg/dL AST 19 (5-37) U/L ALT 20 (0-40) U/L Alkaline Phosphatase 87 (39-117) U/L Troponin I High Sens (<3.5-35.0) ng/L Total Protein 6.4 L (6.5-8.0) g/dL Albumin 3.4 L (3.5-5.0) g/dL Lipase 15 (8-78) U/L Urine Color Urine Appearance Urine pH (5.0-9.0) Ur Specific [place] (1.005-1.025) Urine Protein (Neg-Trace) mg/dL Urine Glucose (UA) (Negative) mg/dL Urine Ketones (Negative) mg/dL Urine Blood (Negative) Urine Nitrite (Negative) Ur Leukocyte Esterase (Negative) Urine RBC (0-2) /HPF Urine WBC (0-5) /HPF Ur Squamous Epith Cells (0-2) /HPF Urine Bacteria (None Seen) Hyaline Casts (0-2) /LPF 04/22/23 04/22/23 Range/Units 11:41 12:32 WBC (4.8-10.8) X10*3/uL RBC (4.60-5.80) X10*6/uL Hgb (14.0-18.0) g/dl Hct (42.0-52.0) % MCV (80.0-98.0) fL MCH (27.0-33.0) pg MCHC (31.0-36.0) g/dl RDW (11.0-16.0) % Plt Count (160-400) X10*3/uL MPV (9.4-12.4) fL Immature Gran % (Auto) (0.0-0.4) % Neut % (Auto) (45-73) % Lymph % (Auto) (20-40) % Stone % (Auto) (2-11) % Eos % (Auto) (0-4) % Baso % (Auto) (0-2) % Lymph # (Auto) (1.2-4.9) X10*3/uL Stone # (Auto) (0.1-1.2) X10*3/uL Eos # (Auto) (0.0-0.4) X10*3/uL Baso # (Auto) (0.0-0.2) X10*3/uL Abs Immat Gran (auto) (0.00-0.03) X10*3/uL Absolute Neuts (auto) (2.0-8.3) x10*3/uL Absolute Nucleated RBC (0.0-0.012) X10*3/uL Nucleated RBC % (auto) (0.0-0.2) /100WBC D-Dimer High Sensitivty NG/ML Sodium (135-145) mmol/L Potassium (3.3-5.1) mmol/L Chloride (96-108) mmol/L Carbon Dioxide (22-29) mmol/L Anion Gap (12-20) BUN (9-16) mg/dL Creatinine (0.5-1.4) mg/dL Estim Creat Clear Calc Estimated GFR Random Glucose (60-115) mg/dL Calcium (8.4-10.2) mg/dL Total Bilirubin (0.0-1.0) mg/dL Direct Bilirubin (0.0-0.5) mg/dL AST (5-37) U/L ALT (0-40) U/L Alkaline Phosphatase (39-117) U/L Troponin I High Sens < 2.7 (<3.5-35.0) ng/L Total Protein (6.5-8.0) g/dL Albumin (3.5-5.0) g/dL Lipase (8-78) U/L Urine Color Yellow Urine Appearance Clear Urine pH 7.0 (5.0-9.0) Ur Specific [place] 1.010 (1.005-1.025) Urine Protein Negative (Neg-Trace) mg/dL Urine Glucose (UA) Negative (Negative) mg/dL Urine Ketones Negative (Negative) mg/dL Urine Blood Trace H (Negative) Urine Nitrite Negative (Negative) Ur Leukocyte Esterase Negative (Negative) Urine RBC 0-2 (0-2) /HPF Urine WBC 0-5 (0-5) /HPF Ur Squamous Epith Cells 0-2 (0-2) /HPF Urine Bacteria None Seen (None Seen) Hyaline Casts 0-2 (0-2) /LPF Independent Interpretation I performed an independent interpretation of an: Plain X-Ray (Chest/L-spine: No acute pathology.) Radiology Impression Discussion of test interpretation with radiology: I have reviewed the radiologist's reading. Discharge Plan Discharge Clinical Impression: Back pain Patient Disposition: Home, Self-Care Instructions: Chronic Back Pain (DC) Prescriptions: No Action abiraterone 250 mg tablet 500 mg PO BEDTIME 90 Days Qty: 180 3RF Rx Instructions: must be taken on empty stomach, at least 1 hr before or 2 hrs after a meal/food cholecalciferol (vitamin D3) 50 mcg (2,000 unit) capsule 1 cap PO DAILY atorvastatin 40 mg tablet 1 tab PO BEDTIME tamsulosin 0.4 mg capsule 1 cap PO BID meclizine 25 mg tablet 25 mg PO BID PRN (Reason: dizziness) Qty: 10 0RF riboflavin (vitamin B2) 100 mg Tablet 100 mg PO BID magnesium 250 mg Tablet 250 mg PO BID topiramate 100 mg Tablet 100 mg PO BID Qty: 60 0RF loperamide [Anti-Diarrheal (loperamide)] 2 mg capsule 2 mg PO Q6H PRN (Reason: loose stool) Qty: 30 0RF ondansetron 4 mg tablet,disintegrating 4 mg PO Q6H PRN (Reason: nausea and vomiting) Qty: 14 0RF amlodipine 2.5 mg tablet 2.5 mg PO DAILY levetiracetam 500 mg tablet 1,000 mg PO BID Referrals: Eric Dinh MD [Primary Care Provider] -
[2023-04-22 12:09] LABS: Alanine Aminotransferase 20 U/L (0-40); Albumin Level 3.4 g/dL (3.5-5.0); Alkaline Phosphatase 87 U/L (39-117); Anion Gap 9 (12-20); Aspartate Amino Transferase 19 U/L (5-37); Bilirubin Direct 0.4 mg/dL (0.0-0.5); Bilirubin Total 1.2 mg/dL (0.0-1.0); Blood Urea Nitrogen 34 mg/dL (9-16); Calcium 9.3 mg/dL (8.4-10.2); Carbon Dioxide 22 mmol/L (22-29); Chloride 114 mmol/L (96-108); Creatinine Clr Calc Pharmacy 66.6; Estimated Glomerular Filt Rate 57; Glucose Random 97 mg/dL (60-115); Lipase 15 U/L (8-78); Potassium 4.2 mmol/L (3.3-5.1); Sodium 141 mmol/L (135-145); Total Protein 6.4 g/dL (6.5-8.0)
[2023-04-22 14:22] VITALS: BP 129/53; PULSE 52; RESP 16; O2SAT 100
[2023-04-22 14:39] VITALS: TEMP 36.4
== END 2023-04-22 15:40 | disposition home or self-care (01) ==
PROVIDERS: Emergency Provider Emergency Medicine; PCP Family Medicine
DX: M54.50 Low back pain, unspecified (principal); R06.02 Shortness of breath; Z79.899 Other long term (current) drug therapy
CPT/HCPCS: 36415; 71045; 72100; 80048; 80076; 81001; 83690; 84484; 85025; 85379; 99283

== ENCOUNTER 2023-04-26 11:49 | Outpatient (AMB) | payer OTHER, SELFPAY ==
--- NOTE | 2023-04-26 11:55 | A.OFFVIS_ITS ---
Intake Intake Visit Reasons: GnRH/Prolia-Labs Intake Note: Patient is present for Follow Up Labs/Injection Urology Med: Abiraterone, Tamsulosin Antibiotic Allergy: None Blood Thinner: None Allergies oxycodone [Percocet] Adverse Reaction (Intermediate, Verified 04/26/23 12:01) face got really red HPI HPI Comments History of Present Illness Details Kody is a very pleasant male. He is a patient of Dr. Acosta. He is seen for the following urologic conditions - prostate cancer - bladder cancer 05/06 PSA low Prolia and GnRH agonist today Three month follow-up labs with bone scan in cystoscopy Has been on combined therapy for 3 years Prostate cancer 12/30 initial treatment XRT with rising PSA and a bone scan lesion 01/04 PSA 0.4 T <1 - continue oral antiandrogen. Bone scan normal. Abdominal CT scan normal. 10/05 Abiraterone 2 tab daily - GnRH administered 05/05 abiraterone 2 tabs daily since seizure 04/05 GnRH with abiraterone - reduced to 3 tabs daily Prostate cancer metastatic Biopsy 12/30 - multicore Ty 8, PSA 96 Initial treatment EXBRT 11/03 Metastatic treatment combination GnRH injections with oral antiantigen PSA 09/03 0.2, 03/04 PSA 0.23, 07/05 0.2 T 9, 01/03 P 0.4 T 122, 04/05 0.3, 07/06 0.3, 10/05 0.6 T 3, 04/06 0.5 T <1 Imaging 11/03 bone scan with evidence of metastatic disease to the ribs and iliac crest - 11/[address] no evidence of bony metastases - 03/04 bone scan shows improvement, density shows osteopenia - 12/06 Bone Scan with improvement on iliac crest - 06/05 Bone Density - osteopenia - on calcium supplementation - 07/06 bone scan with minimal evidence of bony metastases Bladder cancer recurrent low-grade 12/2020, 06/05 Initial diagnosis July 2018 low-grade superficial Cystoscopy Aug 2020 small superficial recurrence, 04/04 NAD, 08/04 NAD Cytology 04/05 NAD Intervention - December 2020 TURBT 2 cm with satellite lesions, 06/05 multiple small lesions removed (small preperitoneal bladder perf) Pathology - December 2020 low-grade bladder cancer, 06/05 low-grade superficial - 04/06 INflammatory Adjuvant therapy - January 2021 6 week gemcitabine induction, 08/04 3 weeks gemcitabine 06/05 6 week reinduction gemcitabine PFSH Medical History Bladder cancer Bladder tumor Bone cancer Cerebral microvascular disease CKD (chronic kidney disease), stage III Complex partial seizure disorder Dizziness Elevated cholesterol Essential hypertension (05/16/21) Hematuria HTN (hypertension) Hx of migraines Hyperlipidemia (05/16/21) Malignant tumor of prostate (05/16/21) Prostate CA Pulmonary emboli Seizure disorder Tremor Surgical History H/O prostate biopsy History of cystoscopy Hx of colonoscopy Social History Household Members: Spouse Housing: House Are you a primary overnight caregiver to a significant other at home: No Do you presently have visiting nurse or other home services: No Alcohol intake: never Patient Tobacco Use Status: Never used Tobacco Second Hand Smoke Exposure: No Advance Directives Date on File: 05/22/22 service: No Current occupational status: retired Review of Systems Const Denies chills and Denies fever(s) Card Reports no additional complaints and Denies syncope Resp Denies cough GI Denies abdominal pain and Denies heartburn Reports as per HPI and Denies change in libido Neuro Denies syncope Psych Denies change in libido Endo Denies change in libido Physical Exam Const General: cooperative, healthy appearing, comfortable and no acute distress Orientation/consciousness: patient oriented x3 HEENT Face and sinus: Yes normal facial exam Mouth: moist mucous membranes Neck Neck: Yes normal visual inspection, Yes full ROM and Yes trachea midline Chest Chest palpation & inspection: normal inspection of the chest Resp Effort & Inspection: normal respiratory effort, able to speak in complete sentences and no respiratory distress GI Inspection: Yes normal to inspection Back/Spine/Pelvis Cervical Spine: normal cervical lordosis Thoracic/Lumbar Spine: thoracic and lumbar spine normal to inspection Skin General skin exam: no rashes or lesions noted Neuro General: patient oriented x3, gait normal, tone normal and moves all extremities Extrem General: Yes normal to inspection and Yes capillary refill normal Office Meds Prolia Performing Provider: Dom Maier MD Administered by: Ce Iglesias RN on 04/26/23 12:07 Dose Route Admin Location Lot Number Expiration Date NDC Double [employer] 60 mg subcut left arm [id number] 06/14/25 20582-589-83 [facility] [employer] (6 month) Performing Provider: Dom Maier MD Administered by: Ce Iglesias RN on 04/26/23 12:07 Dose Route Admin Location Lot Number Expiration Date 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 Assessment & Plan Assessment & Plan (1) Prostate cancer metastatic to bone: Code(s): C61 - Malignant neoplasm of prostate; C79.51 - Secondary malignant neoplasm of bone (2) Bladder cancer: Comment: Recurrent low-grade multifocal - 06/05 Code(s): C67.9 - Malignant neoplasm of bladder, unspecified Qualifiers: Bladder location: dome Qualified Code(s): C67.1 - Malignant neoplasm of dome of bladder Plan 3 month follow-up PSA Orders: Orders Prostate Specific Antigen 3 Months C61 - Malignant neoplasm of prostate, C79.51 - Secondary malignant neoplasm of bone Testosterone, Total 3 Months C61 - Malignant neoplasm of prostate, C79.51 - Secondary malignant neoplasm of bone NM bone scan whole body 3 Months C61 - Malignant neoplasm of prostate, C79.51 - Secondary malignant neoplasm of bone [facility] Leuprolide Injection - Practice Supplied Today C61 - Malignant neoplasm of prostate, C79.51 - Secondary malignant neoplasm of bone AMB Denosumab Injection Practice Supplied Today C61 - Malignant neoplasm of prostate, C79.51 - Secondary malignant neoplasm of bone Medications: Discontinued apixaban take Eliquis 5 mg 2 tablets twice daily for 7 days, followed by Eliquis 5 mg 1 tablet twice daily 10 mg (2 x 5 mg) PO BID 90 tabs 0RF Patient Instructions: Imaging studies, laboratory and physical exam results were discussed and reviewed in detail. No major barriers to patient understanding were identified. An opportunity to ask questions regarding the treatment plan was provided. All questions were answered. The patient expressed understanding and agreement with the above treatment plan. The patient is aware they should contact our office by phone for worsening of their current condition or the appearance of new urologic symptoms. Compliance is encouraged with any medications and followup testing that is ordered. It is a privilege to participate in the urologic care of your patient. If you have any questions or concerns regarding treatment for the above conditions, or other urologic issues, please do not hesitate to contact me. The office teleph one contact is [phone]. This note is constructed using voice recognition software. While every effort has been made to ensure accuracy cover cutter errors may have been included. Yours sincerely, Dr Dom Maier MD, [facility] - Urology Providers of Expert, Compassionate Care for the Genitourinary System Coding Level of Care Code Est Pt Level 3 (43511) Diagnoses Prostate cancer metastatic to bone C61; C79.51 Bladder cancer C67.1 Bladder location: dome
== END 2023-04-26 12:14 | disposition home or self-care (01) ==
PROVIDERS: Visit Provider Urology
DX: C61 Malignant neoplasm of prostate (principal); C79.51 Secondary malignant neoplasm of bone; C67.1 Malignant neoplasm of dome of bladder
CPT/HCPCS: 99213

== ENCOUNTER → 2023-04-26 11:49 | Outpatient (BNVA) | payer OTHER, SELFPAY | PROVIDERS: Visit Provider Urology | DX: C61 Malignant neoplasm of prostate (principal); C79.51 Secondary malignant neoplasm of bone; C67.1 Malignant neoplasm of dome of bladder | CPT/HCPCS: 96372; 96402; 99212; J0897; J9217 ==

== ENCOUNTER 2023-05-18 09:15 | Outpatient (AMB) | payer OTHER, SELFPAY ==
--- NOTE | 2023-05-18 09:15 | MHC.OFFVIS ---
Intake Intake Visit Reasons: 6 week Turbt Intake Note: Patient is present for Telephone turbt Follow Up Urology Med: Abiraterone, Tamsulosin Antibiotic Allergy: None Blood Thinner: APIXABAN Eliquis Pharmacy: [facility] Allergies oxycodone [Percocet] Adverse Reaction (Intermediate, Verified 05/18/23 09:16) face got really red Medication List - Last Reconciled 05/18/23 by Dom Maier MD abiraterone 500 mg (2 x 250 mg) PO BEDTIME 90 days amlodipine 2.5 mg PO DAILY apixaban (Eliquis) 5 mg PO BID atorvastatin 1 tab PO BEDTIME cholecalciferol (vitamin D3) 1 cap PO DAILY levetiracetam 1,000 mg PO BID loperamide (Anti-Diarrheal (loperamide)) 2 mg PO Q6H PRN magnesium 250 mg PO BID meclizine 25 mg PO BID PRN ondansetron 4 mg PO Q6H PRN prednisone 2.5 mg PO BID riboflavin (vitamin B2) 100 mg PO BID tamsulosin 1 cap PO BID topiramate 100 mg PO BID topiramate 50 mg PO BID HPI HPI Comments History of Present Illness Details Kody is a very pleasant male. He is a patient of Dr. Acosta. He is seen for the following urologic conditions - prostate cancer - bladder cancer Telemedicine Evaluation 15 min Consultation [facility] Video attempted Discussed bladder biopsy findings. 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 Plan for check cystoscopy in 6 months Has stopped prednisone. Recommended to stop abiraterone. Also noted to have arthritis pain. Suggest discussion with PCP regarding Celebrex 05/06 - PSA 0.5 T<1 PSA low Prolia and GnRH agonist today Three month follow-up labs with bone scan Has been on combined therapy for 3 years Prostate cancer 12/30 initial treatment XRT with rising PSA and a bone scan lesion 01/04 PSA 0.4 T <1 - continue oral antiandrogen. Bone scan normal. Abdominal CT scan normal. 10/05 Abiraterone 2 tab daily - GnRH administered 05/05 abiraterone 2 tabs daily since seizure 04/05 GnRH with abiraterone - reduced to 3 tabs daily Prostate cancer metastatic Biopsy 12/30 - multicore Ty 8, PSA 96 Initial treatment EXBRT 11/03 Metastatic treatment combination GnRH injections with oral antiantigen PSA 09/03 0.2, 5/21 PSA 0.23, 07/05 0.2 T 9, 01/03 P 0.4 T 122, 04/05 0.3, 07/06 0.3, 10/05 0.6 T 3, 04/06 0.5 T <1 Imaging 11/03 bone scan with evidence of metastatic disease to the ribs and iliac crest - 11/[address] no evidence of bony metastases - 03/04 bone scan shows improvement, density shows osteopenia - 12/06 Bone Scan with improvement on iliac crest - 06/05 Bone Density - osteopenia - on calcium supplementation - 07/06 bone scan with minimal evidence of bony metastases Bladder cancer recurrent low-grade 12/2020, 06/05, 05/06 Initial diagnosis July 2018 low-grade superficial Cystoscopy Aug 2020 small superficial recurrence, 04/04 NAD, 08/04 NAD Cytology 04/05 NAD Intervention - December 2020 TURBT 2 cm with satellite lesions, 06/05 multiple small lesions removed (small preperitoneal bladder perf) - 04/06 urinary papilloma Pathology - December 2020 low-grade bladder cancer, 06/05 low-grade superficial - 04/06 INflammatory Adjuvant therapy - January 2021 6 week gemcitabine induction, 08/04 3 weeks gemcitabine 06/05 6 week reinduction gemcitabine PFSH Medical History Bladder cancer Bladder tumor Bone cancer Cerebral microvascular disease CKD (chronic kidney disease), stage III Complex partial seizure disorder Dizziness Elevated cholesterol Essential hypertension (05/16/21) Hematuria HTN (hypertension) Hx of migraines Hyperlipidemia (05/16/21) Malignant tumor of prostate (05/16/21) Prostate CA Pulmonary emboli Seizure disorder Tremor Surgical History H/O prostate biopsy History of cystoscopy Hx of colonoscopy Social History Household Members: Spouse Housing: House Are you a primary career resource technician to a significant other at home: No Do you presently have visiting nurse or other home services: No Alcohol intake: never Patient Tobacco Use Status: Never used Tobacco Second Hand Smoke Exposure: No Advance Directives Date on File: 05/22/22 service: No Current occupational status: retired Review of Systems Const All systems reviewed & are unremarkable except as noted in HPI and below Reports no additional complaints Resp Reports no additional complaints GI Reports no additional complaints Reports as per HPI Musc Reports no additional complaints Physical Exam Telemedicine evaluation Appropriate responses Regular breathing rate and rhythm HEENT Head: Yes normal to inspection Ears: hearing grossly normal bilaterally Eyes General: appearance normal, both eyes and all related structures Neck Neck: Yes normal visual inspection Chest Chest palpation & inspection: normal inspection of the chest Resp Effort & Inspection: normal respiratory effort and able to speak in complete sentences Assessment & Plan Assessment & Plan (1) Prostate cancer metastatic to bone: Code(s): C61 - Malignant neoplasm of prostate; C79.51 - Secondary malignant neoplasm of bone (2) Osteopenia due to cancer therapy: Code(s): M85.80 - Other specified disorders of bone density and structure, unspecified site (3) Bladder cancer: Comment: Recurrent low-grade multifocal - 06/05 Code(s): C67.9 - Malignant neoplasm of bladder, unspecified Qualifiers: Bladder location: dome Qualified Code(s): C67.1 - Malignant neoplasm of dome of bladder Medications: Discontinued apixaban take Eliquis 5 mg 2 tablets twice daily for 7 days, followed by Eliquis 5 mg 1 tablet twice daily 10 mg (2 x 5 mg) PO BID 90 tabs 0RF Patient Instructions: Imaging studies, laboratory and physical exam results were discussed and reviewed in detail. No major barriers to patient understanding were identified. An opportunity to ask questions regarding the treatment plan was provided. All questions were answered. The patient expressed understanding and agreement with the above treatment plan. The patient is aware they should contact our office by phone for worsening of their current condition or the appearance of new urologic symptoms. Compliance is encouraged with any medications and followup testing that is ordered. It is a privilege to participate in the urologic care of your patient. If you have any questions or concerns regarding treatment for the above conditions, or other urologic issues, please do not hesitate to contact me. The office telephone contact is [phone]. This note is constructed using voice recognition software. While every effort has been made to ensure accuracy pharmacy technician assistant errors may have been included. Yours sincerely, Dr Dom Maier MD, [facility] - Urology Providers of Expert, Compassionate Care for the Genitourinary System Telehealth Telehealth Location of provider rendering services: practice address Location of patient: address on file Patient Identification confirmed using: Name, : Yes Telehealth method: video Patient verbally consented to treatment: Yes Patient verbally consented to billing insurance company: Yes Patient informed of any privacy concerns related to visit: Yes Coding Level of Care Code Tele Est Pt Level 3 (36915) Diagnoses Prostate cancer metastatic to bone C61; C79.51 Osteopenia due to cancer therapy M85.80 Bladder cancer C67.1 Bladder location: dome
== END 2023-05-18 10:04 | disposition home or self-care (01) ==
LOC: HO.HUSH 09:15
PROVIDERS: PCP Family Medicine; Visit Provider Urology
DX: C61 Malignant neoplasm of prostate (principal); C79.51 Secondary malignant neoplasm of bone; M85.80 Other specified disorders of bone density and structure, unspecified site; C67.1 Malignant neoplasm of dome of bladder
CPT/HCPCS: 99213

== ENCOUNTER → 2023-05-18 09:15 | Outpatient (BNVA) | payer OTHER, SELFPAY | PROVIDERS: PCP Family Medicine; Visit Provider Urology | DX: C61 Malignant neoplasm of prostate (principal); C79.51 Secondary malignant neoplasm of bone; C67.1 Malignant neoplasm of dome of bladder; M85.80 Other specified disorders of bone density and structure, unspecified site | CPT/HCPCS: Q3014 ==

== ENCOUNTER 2023-05-22 11:17 | Emergency (ER) | payer OTHER, SELFPAY ==
--- NOTE | ~2023-05-22 | XR_ITS ---
EXAMINATION: XR LUMBOSACRAL SPINE CLINICAL INFORMATION: Back pain, rule out metastases. COMPARISON: 04/22/2023 lumbar spine radiographs. TECHNIQUE: Three views of the lumbosacral spine. FINDINGS: Mild thoracolumbar dextro scoliosis is seen with mild to moderate multilevel degenerative changes most pronounced at L3-L4 and L4-L5 with disc space narrowing and marginal osteophyte formation. There is no acute fracture. The soft tissues are unremarkable. XR/XR lumbar spine 2-3V IMPRESSION: Mild thoracolumbar dextro scoliosis and mild to moderate multilevel degenerative changes without acute abnormality. No overt evidence for metastatic disease. No significant interval change.
--- NOTE | ~2023-05-22 | XR_ITS ---
EXAMINATION: XR ABDOMEN KUB CLINICAL INDICATION: Constipation. COMPARISON: CT scan of the abdomen and pelvis dated 01/06/2023. TECHNIQUE: AP view of the abdomen. FINDINGS: The bowel gas pattern is normal with no evidence of ileus or obstruction. No unusual soft tissue calcifications are noted. Mild thoracolumbar dextro scoliosis with mild to moderate multilevel degenerative changes. Multiple phleboliths overlie the inferior pelvis. XR/XR abdomen 1V IMPRESSION: Nonobstructive bowel gas pattern.
[2023-05-22 11:29] VITALS: BP 125/75; BP 132/78; PULSE 55; PULSE 65; RESP 18; TEMP 35.6; O2SAT 96; O2SAT 99; BMI 29.9
--- NOTE | 2023-05-22 12:03 | ED_ITS ---
HPI - General Adult General Chief complaint: Back Pain/Injury Stated complaint: Worsening low back pain per EMS Time Seen by Provider: 05/22/23 11:44 Source: patient, EMS and RN notes reviewed Mode of arrival: EMS Limitations: no limitations History of Present Illness HPI narrative: Patient is a 72-year-old male with history of bladder and prostate cancer with metastases to bone presenting to the emergency department with lower back pain as well as dysuria. He also reports increased pain with having bowel movements. Last bowel movement was this morning. Denies diarrhea or constipation. Denies abdominal pain. Patient was seen by Dr. Maier, his urologist on 05/18 and also saw his PCP recently. States PCP has him on Tylenol for his back pain which is not sufficient for controlling his pain. Sees PCP again on Sunday. He denies recent fevers. Denies saddle anesthesia or bowel or bladder incontinence. He states that he is no longer on Eliquis, it has been discontinued. MD complaint: back pain Onset (ago): month(s) Location: back Severity: severe Quality: aching Pain Consistency: constant Relieving factors: none Exacerbating factors: movement Associated symptoms: other (dysuria) Treatments prior to arrival: other (Tylenol) Related Data Home Medications Medication Instructions Recorded Confirmed atorvastatin 40 mg tablet 1 tab PO BEDTIME 07/19/20 05/18/23 cholecalciferol (vitamin D3) 50 1 cap PO DAILY 12/07/20 05/18/23 mcg (2,000 unit) capsule tamsulosin 0.4 mg capsule 1 cap PO BID 07/10/21 05/18/23 amlodipine 2.5 mg tablet 2.5 mg PO DAILY 06/29/22 05/18/23 magnesium 250 mg tablet 250 mg PO BID 09/10/22 05/18/23 riboflavin (vitamin B2) 100 mg 100 mg PO BID 09/10/22 05/18/23 tablet levetiracetam 500 mg tablet 1,000 mg PO BID 10/12/22 05/18/23 prednisone 2.5 mg tablet 2.5 mg PO BID 04/26/23 05/18/23 topiramate 50 mg tablet 50 mg PO BID 04/26/23 05/18/23 apixaban 5 mg tablet (Eliquis) 5 mg PO BID 05/18/23 05/18/23 Previous Rx's Medication Instructions Recorded abiraterone 250 mg tablet 500 mg PO BEDTIME 90 days #180 tabs 07/07/22 meclizine 25 mg tablet 25 mg PO BID PRN dizziness #10 tabs 08/15/22 topiramate 100 mg tablet 100 mg PO BID #60 tabs 09/12/22 loperamide 2 mg capsule 2 mg PO Q6H PRN loose stool #30 01/06/23 (Anti-Diarrheal (loperamide)) caps ondansetron 4 mg disintegrating 4 mg PO Q6H PRN nausea and 01/06/23 tablet vomiting #14 tabs Allergies Allergy/AdvReac Type Severity Reaction Status Date / Time oxycodone [Percocet] AdvReac Intermediate face got Verified 05/22/23 11:27 really red Review of Systems Review of Systems: As per HPI. Yes all other systems are reviewed and are negative Constitutional: Constitutional: Reports as per HPI PMFSH Past Medical History Medical History Bladder cancer Bladder tumor Bone cancer Cerebral microvascular disease CKD (chronic kidney disease), stage III Complex partial seizure disorder Dizziness Elevated cholesterol Essential hypertension (05/16/21) Hematuria HTN (hypertension) Hx of migraines Hyperlipidemia (05/16/21) Malignant tumor of prostate (05/16/21) Prostate CA Pulmonary emboli Seizure disorder Tremor Surgical History H/O prostate biopsy History of cystoscopy Hx of colonoscopy Social History Social History Household Members: Spouse Housing: House Are you a primary health care specialist to a significant other at home: No Do you presently have visiting nurse or other home services: No Alcohol intake: never Patient Tobacco Use Status: Never used Tobacco Smoked in Last 30 Days: No Second Hand Smoke Exposure: No Use of substances other than those prescribed or required for medical reasons: No Advance Directives: Yes Advance Directives on File: Yes Advance Directives Date on File: 05/22/22 service: No Current occupational status: retired Physical Exam ED Vital Signs: Vital Signs - 24 hr 05/22/23 11:29 05/22/23 13:28 Temperature 96.0 F L 97.5 F Pulse Rate 55 59 Respiratory Rate 18 18 Blood Pressure 125/75 137/73 Pulse Oximetry 96 99 Oxygen Delivery Method Room Air Room Air BMI result Body Mass Index 29.9 Vital signs have been reviewed and appear to be correct. Blood pressure normal. Heart rate normal. Respiratory rate normal. Temperature normal. Oxygen saturation normal. Const General: cooperative and no acute distress Orientation/consciousness: oriented to person, oriented to place, oriented to time and patient oriented x3 Limitations: no limitations HENMT Head: Yes normocephalic and Yes atraumatic Ears: external ears normal General nose exam: Normal external nose present Face and sinus: Yes face symmetric Mouth: oropharynx normal and moist mucous membranes Throat: Yes uvula midline Eyes Pupils: Equal, round and reactive pupils present Neck Neck: Yes normal visual inspection and Yes supple Resp Effort & Inspection: normal respiratory effort and able to speak in complete sentences Auscultation: clear to auscultation bilaterally Cardio Rate: regular rate Rhythm: regular rhythm Heart sounds: S1 normal heart sound present and S2 normal heart sound present GI Palpation (GI): Soft to palpation and nontender Auscultation: normoactive bowel sounds General: Yes no CVA tenderness Back/Spine/Pelvis Back: no CVA tenderness Cervical Spine: cervical ROM normal Thoracic/Lumbar Spine: thoracic and lumbar spine normal to inspection, thoraco- lumbar ROM normal, paraspinal muscle tenderness bilaterally in the upper lumbar and in the mid lumbar, No thoracic spinal tenderness and No lumbar spinal tenderness Skin General skin exam: elasticity normal and turgor normal Neuro General: oriented to person, oriented to place, oriented to time, patient oriented x3, moves all extremities, no focal motor deficits and CN's II-XI intact bilaterally Cranial nerves: Yes Equal, round and reactive pupils present Cognition (Neuro): normal cognition Extrem General: Yes full ROM, Yes no pedal edema and Yes no calf tenderness Psych Mental Status: mental status grossly normal Affect: normal affect Thought process: Normal thought process present Medications Administered Discontinued Medications Generic Name Dose Route Start Last Admin Trade Name Freq PRN Reason Stop Dose Admin Ibuprofen 600 mg 05/22/23 12:44 05/22/23 12:59 Ibuprofen 600 Mg Tablet PO 05/22/23 12:45 600 mg ONCE ONE Administration Medical Decision Making Medical Decision Making [facility] Narrative: Patient is a 72-year-old male with history of bladder and prostate cancer with metastases to bone presenting to the emergency department with lower back pain as well as dysuria. On exam patient is awake, A+Ox3, VS WNL, afebrile, normal neurological exam without focal deficits, no midline spinal tenderness, bilateral lumbar paraspinal tenderness to palpation, full range of motion, DTRs 2+. Given reported symptoms and physical exam findings, initial differential includes UTI, metastases, constipation. UA notable to no signs of infection, no blood. Lumbar x-ray notable for no new abnormalities or metastases. Abdominal x-ray does not demonstrate severe constipation. My interpretation is in agreement with the radiologist's interpretation. Patient reports improved pain after receiving ibuprofen. Discussed with patient that he can supplement his Tylenol with ibuprofen every 6-8 hours as needed for pain until he sees his PCP on Sunday. Instructed him to discuss the further use of ibuprofen with his PCP at that appointment. Return precautions discussed at bedside. Patient verbalized understanding of and agreement with plan. Differential Diagnosis Differential Diagnoses: The differential diagnosis associated with the presentation includes As per [facility]. Lab Data [facility] Lab Attestation statement: I reviewed the patient's lab results. As per [facility]. Labs: Lab Results 05/22/23 Range/Units 12:53 Urine Color Yellow Urine Appearance Clear Urine pH 8.0 (5.0-9.0) Ur Specific [place] 1.015 (1.005-1.025) Urine Protein Negative (Neg-Trace) mg/dL Urine Glucose (UA) Negative (Negative) mg/dL Urine Ketones Negative (Negative) mg/dL Urine Blood Negative (Negative) Urine Nitrite Negative (Negative) Ur Leukocyte Esterase Negative (Negative) Independent Interpretation I performed an independent interpretation of an: Plain X-Ray Interpretation: No new abnormalities on lumbar x-ray, no evidence of severe constipation on abdominal x-ray. Radiology Impression Discussion of test interpretation with radiology: I have reviewed the radiologist's reading. Radiologist Impression: XR/XR lumbar spine 2-3V IMPRESSION: Mild thoracolumbar dextro scoliosis and mild to moderate multilevel degenerative changes without acute abnormality. No overt evidence for metastatic disease. No significant interval change. ? XR/XR abdomen 1V IMPRESSION: Nonobstructive bowel gas pattern. External Record Review External record reviewed: Inpatient record, Office record and Outpatient record Chronic Conditions Patient?s care impacted by: Cancer Discharge Plan Discharge Clinical Impression: Back pain Patient Disposition: Home, Self-Care Instructions: Back Pain (ED), Chronic Back Pain (DC) Additional Instructions: You were evaluated in the emergency department today for your low back pain. Your urine did not show evidence of infection. Your lumbar x-ray did not show evidence of any new metastases. Your abdominal x-ray did not show evidence of severe constipation. Your pain improved with ibuprofen. You may continue to use ibuprofen every 6-8 hours as needed for pain until you follow-up with your primary care provider on 05/25/23. Return to the emergency department if you develop worsening pain, numbness, tingling, or weakness to your legs, fever 100.4? F or greater, numbness tingling tear groin, loss of bowel or bladder control, or any other concerning symptoms. Prescriptions: No Action abiraterone 250 mg tablet 500 mg PO BEDTIME 90 Days Qty: 180 3RF Rx Instructions: must be taken on empty stomach, at least 1 hr before or 2 hrs after a meal/food cholecalciferol (vitamin D3) 50 mcg (2,000 unit) capsule 1 cap PO DAILY atorvastatin 40 mg tablet 1 tab PO BEDTIME tamsulosin 0.4 mg capsule 1 cap PO BID meclizine 25 mg tablet 25 mg PO BID PRN (Reason: dizziness) Qty: 10 0RF riboflavin (vitamin B2) 100 mg Tablet 100 mg PO BID magnesium 250 mg Tablet 250 mg PO BID topiramate 100 mg Tablet 100 mg PO BID Qty: 60 0RF loperamide [Anti-Diarrheal (loperamide)] 2 mg capsule 2 mg PO Q6H PRN (Reason: loose stool) Qty: 30 0RF ondansetron 4 mg tablet,disintegrating 4 mg PO Q6H PRN (Reason: nausea and vomiting) Qty: 14 0RF amlodipine 2.5 mg tablet 2.5 mg PO DAILY levetiracetam 500 mg tablet 1,000 mg PO BID topiramate 50 mg tablet 50 mg PO BID prednisone 2.5 mg tablet 2.5 mg PO BID Eliquis 5 mg tablet 5 mg PO BID
--- NOTE | 2023-05-22 12:54 | PC.NURSE ---
pt ambulated to bathroom on 2:1 assist. pt has unsteady gait and extreme weakness in lower extremities. urine obtained and sent to lab.
[2023-05-22] MEDS: Ibuprofen 600 MG TABLET PO (12:59)
--- NOTE | 2023-05-22 13:00 | PC.NURSE ---
pt verbalizing 8/10 lower back pain - medication administered per provider order. will reassess.
[2023-05-22 13:08] LABS: Appearance Urine Clear; Color Urine Yellow; Glucose Urine UA Negative (Negative); Leukocyte Esterase Urine Negative (Negative); Nitrite Urine Negative (Negative); Specific Gravity - Urine 1.015 (1.005-1.025); Urine Blood Negative (Negative); Urine Ketones Negative (Negative); Urine Protein Negative (Neg-Trace)
[2023-05-22 13:28] VITALS: BP 137/73; PULSE 59; RESP 18; TEMP 36.4; O2SAT 99
--- NOTE | 2023-05-22 13:29 | PC.NURSE ---
pt a&ox3, vss, pt resting comfortably.
--- NOTE | 2023-05-22 14:16 | PC.NURSE ---
pt pain level reassessed - pt verbalizes that pain level decreased to a 5/10 post medication administration.
== END 2023-05-22 15:34 | disposition home or self-care (01) ==
PROVIDERS: Registered Nurse Emergency; Emergency Provider Emergency Medicine; PCP Internal Medicine Pulmonary Disease
DX: M54.50 Low back pain, unspecified (principal); R30.0 Dysuria; R10.2 Pelvic and perineal pain; Z79.899 Other long term (current) drug therapy
CPT/HCPCS: 72100; 74018; 81003; 99283; 99284

== ENCOUNTER 2023-06-21 17:27 | Emergency (ER) | payer OTHER, SELFPAY ==
--- NOTE | ~2023-06-21 | CT_ITS ---
EXAMINATION: CT ANGIOGRAM OF THE CHEST WITH AND WITHOUT CONTRAST (CT PULMONARY ANGIOGRAM FOR PE) CLINICAL INFORMATION: Reason for Exam syncope, off eliquis, hx PEs COMPARISON: None available. TECHNIQUE: Prior to contrast administration, noncontrast localization images were obtained. Subsequently, multidetector volumetric imaging was performed from the thoracic inlet to below the diaphragms following the administration of 80 mL Omnipaque 350 intravenous contrast. No contrast reaction reported Sagittal, coronal, and MIP oblique sagittal reformatted images were obtained on the CT workstation, uploaded to PACS, and reviewed. This CT examination was performed using dose optimization techniques as appropriate, variously including the following: *Automated exposure control *Adjustment of mA and/or kV according to patient size (this includes techniques or standardized protocols for targeted exams where dose is matched to indication/reason for exam; i.e. extremities or head) *Use of iterative reconstruction technique Total exam dose-length product of 1513 mGy-cm FINDINGS: QUALITY OF STUDY/CONTRAST BOLUS: Satisfactory. PULMONARY ARTERIES: No pulmonary emboli. THORACIC AORTA: No aneurysm. LUNG: No focal consolidation, nodules or masses. Minimal atelectatic changes are seen in the left lower lobe lateral segment. Dependent atelectasis seen in the right lung base. PLEURA: No pleural effusion or pneumothorax. MEDIASTINUM: Normal heart size. No pericardial effusion. No hilar or mediastinal lymphadenopathy. No evidence of septal bowing or right heart strain. CORONARY ARTERY CALCIFICATION: None visualized on this study. CHEST WALL/AXILLA: No axillary or internal mammary lymphadenopathy. OSSEOUS STRUCTURES: No aggressive lytic or sclerotic process seen. There is exaggerated thoracic kyphosis. UPPER ABDOMEN: There are hypodense 4 mm lesions in right and left hepatic lobe probable cyst no enhancing renal mass. Spleen, pancreas, gallbladder and right adrenal gland appears unremarkable. No reflux of contrast into the hepatic veins to suggest elevated right heart pressures. CT/CT angio chest PE protocol IMPRESSION: 1. No evidence of PE. 2. No evidence aortic dissection or aneurysm. 3. Minimal atelectatic changes in both lower lobes. VTE: negative.
--- NOTE | ~2023-06-21 | CT_ITS ---
EXAMINATION: CT HEAD WITHOUT CONTRAST CLINICAL INFORMATION: Fall and syncope. COMPARISON: CT brain dated 01/06/2023. TECHNIQUE: Contiguous axial imaging was performed from the skull base to vertex without intravenous administration of contrast. Multiplanar reformatted images are submitted. This CT examination was performed using dose optimization techniques as appropriate, variously including the following: *Automated exposure control *Adjustment of mA and/or kV according to patient size (this includes techniques or standardized protocols for targeted exams where dose is matched to indication/reason for exam; i.e. extremities or head) *Use of iterative reconstruction technique DLP: 1513 mGy-cm (head and cervical spine) FINDINGS: There is no acute intracranial hemorrhage or evidence of territorial infarction. No abnormal mass effect or midline shift is seen. Cade to white matter differentiation is well preserved. There is moderate patchy low attenuation change in the periventricular white matter spaces. The ventricles are normal in size. No extra-axial fluid collections are identified. The calvarium and scalp soft tissues are normal. The middle ear cavity and mastoid air cells are clear. The visualized paranasal sinuses are clear. CT/CT cervical spine wo IV con IMPRESSION: No acute intracranial pathology. EXAMINATION: CT CERVICAL SPINE WITHOUT CONTRAST CLINICAL INFORMATION: As above. COMPARISON: None available. TECHNIQUE: Contiguous axial imaging was performed through the cervical spine without intravenous administration of contrast. Multiplanar reformatted images are submitted. This CT examination was performed using dose optimization techniques as appropriate, variously including the following: *Automated exposure control *Adjustment of mA and/or kV according to patient size (this includes techniques or standardized protocols for targeted exams where dose is matched to indication/reason for exam; i.e. extremities or head) *Use of iterative reconstruction technique DLP: As above FINDINGS: Vertebral body heights and alignment are normal. There is moderate to marked disc space narrowing at C3-C4. There is moderate disc space narrowing at C4-C5 and C5-C6. There is mild disc space narrowing at C6-C7. No acute fracture or spondylolisthesis is seen. There is multi-level cervical spondylosis. The posterior elements are intact. There is no prevertebral soft tissue swelling. The dens is intact. The bilateral lung apices are clear. IMPRESSION: There is multi-level cervical degenerative disc disease and spondylosis. Degenerative disc disease is most pronounced at C3-C4, where it is moderately severe. There is no acute fracture or spondylolisthesis. Fleischner guidelines were followed.
[2023-06-21 17:52] VITALS: BP 147/71; BP 151/75; PULSE 60; PULSE 81; RESP 16; TEMP 36.8; O2SAT 97; BMI 28.5
--- NOTE | 2023-06-21 18:10 | ECG_ITS ---
Test Reason : FALL Blood Pressure : / mmHG Vent. Rate : 059 BPM Atrial Rate : 000 BPM P-R Int : 000 ms QRS Dur : 104 ms QT Int : 454 ms P-R-T Axes : 000 -65 014 degrees QTc Int : 449 ms Poor data quality, interpretation may be adversely affected Normal sinus rhythm Left anterior fascicular block Abnormal ECG When compared with ECG of 06-JAN-2023 19:48, No significant change was found Referred By: Herlinda Hall Electronically Signed By:MARISA ACUÑA
--- NOTE | 2023-06-21 18:13 | ED_ITS ---
HPI - General Adult General Chief complaint: Fall Stated complaint: had syncopal ep.fell hitting arm & head,collared Time Seen by Provider: 06/21/23 18:04 Source: patient Mode of arrival: EMS Limitations: no limitations History of Present Illness HPI narrative: Patient comes to the emergency room complaining of a syncopal episode. Patient states that he was at home, he was standing by the bathroom about to start urinating, patient had a sudden episode of syncope. Patient states that he fell, hit his head, did lose consciousness but started before the fall, passing out. Patient states that he reports that he was unconscious for 7-8 minutes estimating. Patient complaining of posterior headache, no neck pain. Patient states that he has had multiple syncopal episodes in the past, patient follows up with Dr. Roth. Also, patient states that he has history of pulmonary embolisms, he has been off Eliquis for several months. Patient denies chest pain or shortness of breath, no palpitations, lower extremity pain. Related Data Home Medications Medication Instructions Recorded Confirmed atorvastatin 40 mg tablet 1 tab PO BEDTIME 07/19/20 05/18/23 cholecalciferol (vitamin D3) 50 1 cap PO DAILY 12/07/20 05/18/23 mcg (2,000 unit) capsule tamsulosin 0.4 mg capsule 1 cap PO BID 07/10/21 05/18/23 amlodipine 2.5 mg tablet 2.5 mg PO DAILY 06/29/22 05/18/23 magnesium 250 mg tablet 250 mg PO BID 09/10/22 05/18/23 riboflavin (vitamin B2) 100 mg 100 mg PO BID 09/10/22 05/18/23 tablet levetiracetam 500 mg tablet 1,000 mg PO BID 10/12/22 05/18/23 prednisone 2.5 mg tablet 2.5 mg PO BID 04/26/23 05/18/23 topiramate 50 mg tablet 50 mg PO BID 04/26/23 05/18/23 apixaban 5 mg tablet (Eliquis) 5 mg PO BID 05/18/23 05/18/23 Previous Rx's Medication Instructions Recorded abiraterone 250 mg tablet 500 mg (2 x 250 mg) PO BEDTIME 90 07/07/22 days #180 tabs meclizine 25 mg tablet 25 mg PO BID PRN dizziness #10 tabs 08/15/22 topiramate 100 mg tablet 100 mg PO BID #60 tabs 09/12/22 loperamide 2 mg capsule 2 mg PO Q6H PRN loose stool #30 01/06/23 (Anti-Diarrheal (loperamide)) caps ondansetron 4 mg disintegrating 4 mg PO Q6H PRN nausea and 01/06/23 tablet vomiting #14 tabs Allergies Allergy/AdvReac Type Severity Reaction Status Date / Time oxycodone [Percocet] AdvReac Intermediate face got Verified 05/22/23 11:27 really red Review of Systems 2 Review of Systems: Constitutional : No Weight loss, No Fever, No Chills, No Night Sweats, No Fatigue, No Malaise ENT/Mouth : No Hearing loss, No Ear Pain, No Nasal Congestion, No Sinus Pain, No Hoarseness, No sore throat, No Rhinorrhea, No Swallowing Difficulty Eyes: No Eye Pain, No Swelling, No Redness, No Foreign Body, No Discharge, No Vision Changes Cardiovascular : No Chest Pain, No SOB, No Dyspnea on Exertion, No Orthopnea, No Edema, No Palpitations Respiratory : No Cough, No Sputum, No Wheezing, No Smoke Exposure, No Dyspnea Gastrointestinal : No Nausea, No Vomiting, No Diarrhea, No Constipation, No abdominal Pain, No Hematochezia, No Melena Genitourinary :No Dysuria, No Urinary Frequency, No Hematuria, No Urinary Incontinence, No Urgency, No Flank Pain, No Urinary Flow Changes, No Hesitancy Musculoskeletal : No joint pain, No Myalgias, No Joint Swelling Skin : No Skin Lesions, No rash Neuro : No Weakness, No Numbness, No Paresthesias, complaining of loss of consciousness Psych : No Anxiety/Panic, No Depression, No SI/HI/AH/VH, No Social Issues, Heme/Lymph: No Bruising, No Bleeding,No Lymphadenopathy Endocrine : No Polyuria, No Polydipsia, No Temperature Intolerance [facility] Past Medical History Medical History Pulmonary emboli Hx of migraines CKD (chronic kidney disease), stage III Dizziness Malignant tumor of prostate (05/16/21) Hyperlipidemia (05/16/21) Essential hypertension (05/16/21) Complex partial seizure disorder Seizure disorder Tremor Cerebral microvascular disease Bone cancer Bladder cancer Bladder tumor Prostate CA Hematuria Elevated cholesterol HTN (hypertension) Surgical History H/O prostate biopsy History of cystoscopy Hx of colonoscopy Social History Social History Household Members: Spouse Housing: House Are you a primary school childcare attendant to a significant other at home: No Do you presently have visiting nurse or other home services: No Alcohol intake: never Patient Tobacco Use Status: Never used Tobacco Smoked in Last 30 Days: No Second Hand Smoke Exposure: No Use of substances other than those prescribed or required for medical reasons: No Advance Directives: Yes Advance Directives on File: Yes Advance Directives Date on File: 05/22/22 service: No Current occupational status: retired Physical Exam ED Vital Signs: Vital Signs - 24 hr 06/21/23 17:52 06/21/23 19:06 06/21/23 19:06 Temperature 98.2 F Pulse Rate 81 59 58 Respiratory Rate 16 Blood Pressure 147/71 H 113/69 97/81 Pulse Oximetry 97 Oxygen Delivery Method Room Air 06/21/23 19:09 06/21/23 19:11 Temperature 97.9 F Pulse Rate 85 72 Respiratory Rate 16 Blood Pressure 156/70 H 134/70 Pulse Oximetry 97 Oxygen Delivery Method Room Air BMI result Body Mass Index 28.5 Const Other: Appearance: Alert. Oriented X3. No acute distress. Eyes: Pupils equal, round and reactive to light. ENT: Pharynx normal. Neck: Normal inspection. Neck supple. No lymph nodes noted. No crepitus no palpable step-off, no pain to palpation on the neck CVS: Normal heart rate and rhythm. Pulses normal. Normal S1 and S2 Respiratory: No respiratory distress. Breath sounds normal. No Wheezing. No rales Abdomen: Soft and nontender. No rigidity. No distention. Skin: Skin warm and dry. Normal skin color. Normal skin turgor. Patient has a skin tear in the left forearm Extremities: No lower extremity edema. No Lacerations. No Rash Neuro: Oriented X 3. No motor deficit. No sensory deficit. Moving all extremities. No slurred speech. CN 2 through 12 grossly intact Psych: calm, cooperative, normal affect Course Course Course Narrative: -all of patient's labs pending -CT scans pending -patient states that he has history of multiple syncopal episodes over the last couple of years. However, patient was recently taken off Eliquis, patient since he of pulmonary embolisms. Discussed with the patient that we will skip the dimer and scan his head neck and scan him for pulmonary embolisms some with an easily, patient agrees with plan. Medications Administered Discontinued Medications Generic Name Dose Route Start Last Admin Trade Name Mini PRN Reason Stop Dose Admin Iohexol 100 ml 06/21/23 19:45 06/21/23 19:46 Iohexol 350 Mg/Ml 100 Ml Infus..Btl IV 06/21/23 19:46 65 ml ONCE ONE Administration Medical Decision Making Medical Decision Making [facility] Narrative: -patient states that overall he feels back to baseline. -orthostatic vitals were negative -my interpretation of CT scan of the head : No intracranial bleed -my interpretation of CTA, no obvious pulmonary embolism -troponin 2. Pending -patient states that he feels very well, would like to be discharged home as soon as we get the results of the 2nd troponin. -patient states that he has had multiple episodes of syncope for the last 2 years. I discussed with the patient that I recommend admission to the hospital for further workup. Patient respectfully declined. Patient states that he would like to have the workup done in an outpatient basis. Tomorrow he will call his primary care physician. Patient states that his primary care physician will likely get him in tomorrow in the afternoon for a follow-up appointment, and they will discuss any further workup that he may need for multiple syncopal episodes. -troponin 2. Pending, sign-out given to Dr. Simon, discharge home anticipated. As mentioned above, patient declined admission Differential Diagnosis Differential Diagnoses: The differential diagnosis associated with the presentation includes (Pulmonary embolism, syncope, near syncope, orthostatic hypotension, arrhythmia) Admission/Observation Consideration of admission/observation: Escalation of care including admission/observation considered (Admission was considered and offered, patient declined) Lab Data [facility] Lab Attestation statement: I reviewed the patient's lab results. 06/21/23 18:56 06/21/23 18:56 Labs: Lab Results 06/21/23 06/21/23 Range/Units 18:56 19:17 WBC 7.5 (4.8-10.8) X10*3/uL RBC 3.89 L (4.60-5.80) X10*6/uL Hgb 13.1 L (14.0-18.0) g/dl Hct 39.9 L (42.0-52.0) % MCV 102.6 H (80.0-98.0) fL MCH 33.7 H (27.0-33.0) pg MCHC 32.8 (31.0-36.0) g/dl RDW 12.7 (11.0-16.0) % Plt Count 227 (160-400) X10*3/uL MPV 9.3 L (9.4-12.4) fL Immature Gran % (Auto) 0.3 (0.0-0.4) % Neut % (Auto) 54.6 (45-73) % Lymph % (Auto) 34.7 (20-40) % [place] % (Auto) 8.1 (2-11) % Eos % (Auto) 1.5 (0-4) % Baso % (Auto) 0.8 (0-2) % Lymph # (Auto) 2.6 (1.2-4.9) X10*3/uL [place] # (Auto) 0.6 (0.1-1.2) X10*3/uL Eos # (Auto) 0.1 (0.0-0.4) X10*3/uL Baso # (Auto) 0.1 (0.0-0.2) X10*3/uL Abs Immat Gran (auto) 0.02 (0.00-0.03) X10*3/uL Absolute Neuts (auto) 4.1 (2.0-8.3) x10*3/uL Absolute Nucleated RBC 0.000 (0.0-0.012) X10*3/uL Nucleated RBC % (auto) 0.0 (0.0-0.2) /100WBC PT 11.0 L (11.1-13.3) SEC INR 0.9 (0.9-1.1) Sodium 142 (135-145) mmol/L Potassium 4.6 (3.3-5.1) mmol/L Chloride 113 H (96-108) mmol/L Carbon Dioxide 24 (22-29) mmol/L Anion Gap 10 L (12-20) BUN 25 H (9-16) mg/dL Creatinine 1.00 (0.5-1.4) mg/dL Estim Creat Clear Calc 82.3 Estimated GFR > 60 Random Glucose 95 (60-115) mg/dL Lactic Acid 0.9 (0.5-2.0) mmol/L Calcium 9.3 (8.4-10.2) mg/dL Magnesium 2.0 (1.6-2.6) mg/dL Total Bilirubin 0.7 (0.0-1.0) mg/dL Direct Bilirubin 0.2 (0.0-0.5) mg/dL AST 21 (5-37) U/L ALT 23 (0-40) U/L Alkaline Phosphatase 77 (39-117) U/L Troponin I High Sens 5.2 D (<3.5-35.0) ng/L Total Protein 6.6 (6.5-8.0) g/dL Albumin 3.5 (3.5-5.0) g/dL Urine Color Straw Urine Appearance Clear Urine pH 7.5 (5.0-9.0) Ur Specific [place] 1.010 (1.005-1.025) Urine Protein Negative (Neg-Trace) mg/dL Urine Glucose (UA) Negative (Negative) mg/dL Urine Ketones Negative (Negative) mg/dL Urine Blood Negative (Negative) Urine Nitrite Negative (Negative) Ur Leukocyte Esterase Negative (Negative) Urine Opiates Screen Not Detected (Not Detect) Urine Fentanyl Screen Not Detected (Not Detect) Ur Barbiturates Screen Not Detected (Not Detect) Ur Phencyclidine Scrn Not Detected (Not Detect) Ur Amphetamines Screen Not Detected (Not Detect) U Benzodiazepines Scrn Not Detected (Not Detect) Urine Cocaine Screen Not Detected (Not Detect) U Marijuana (THC) Screen Not Detected (Not Detect) Ethyl Alcohol < 10 mg/dL Independent Interpretation I performed an independent interpretation of an: CT Scan Radiology Impression Discussion of test interpretation with radiology: I have reviewed the radiologist's reading. Radiologist Impression: FINDINGS: There is no acute intracranial hemorrhage or evidence of territorial infarction. No abnormal mass effect or midline shift is seen. Cade to white matter differentiation is well preserved. There is moderate patchy low attenuation change in the periventricular white matter spaces. The ventricles are normal in size. No extra-axial fluid collections are identified. The calvarium and scalp soft tissues are normal. The middle ear cavity and mastoid air cells are clear. The visualized paranasal sinuses are clear. CT/CT head/brain wo IV con IMPRESSION: No acute intracranial pathology. EXAMINATION: CT CERVICAL SPINE WITHOUT CONTRAST CLINICAL INFORMATION: As above. COMPARISON: None available. TECHNIQUE: Contiguous axial imaging was performed through the cervical spine without intravenous administration of contrast. Multiplanar reformatted images are submitted. This CT examination was performed using dose optimization techniques as appropriate, variously including the following: *Automated exposure control *Adjustment of mA and/or kV according to patient size (this includes techniques or standardized protocols for targeted exams where dose is matched to indication/reason for exam; i.e. extremities or head) *Use of iterative reconstruction technique DLP: As above FINDINGS: Vertebral body heights and alignment are normal. There is moderate to marked disc space narrowing at C3-C4. There is moderate disc space narrowing at C4-C5 and C5-C6. There is mild disc space narrowing at C6-C7. No acute fracture or spondylolisthesis is seen. There is multi-level cervical spondylosis. The posterior elements are intact. There is no prevertebral soft tissue swelling. The dens is intact. The bilateral lung apices are clear. IMPRESSION: There is multi-level cervical degenerative disc disease and spondylosis. Degenerative disc disease is most pronounced at C3-C4, where it is moderately severe. There is no acute fracture or spondylolisthesis. Fleischner guidelines were followed. FINDINGS: QUALITY OF STUDY/CONTRAST BOLUS: Satisfactory. PULMONARY ARTERIES: No pulmonary emboli. THORACIC AORTA: No aneurysm. LUNG: No focal consolidation, nodules or masses. Minimal atelectatic changes are seen in the left lower lobe lateral segment. Dependent atelectasis seen in the right lung base. PLEURA: No pleural effusion or pneumothorax. MEDIASTINUM: Normal heart size. No pericardial effusion. No hilar or mediastinal lymphadenopathy. No evidence of septal bowing or right heart strain. CORONARY ARTERY CALCIFICATION: None visualized on this study. CHEST WALL/AXILLA: No axillary or internal mammary lymphadenopathy. OSSEOUS STRUCTURES: No aggressive lytic or sclerotic process seen. There is exaggerated thoracic kyphosis. UPPER ABDOMEN: There are hypodense 4 mm lesions in right and left hepatic lobe probable cyst no enhancing renal mass. Spleen, pancreas, gallbladder and right adrenal gland appears unremarkable. No reflux of contrast into the hepatic veins to suggest elevated right heart pressures. CT/CT angio chest PE protocol IMPRESSION: 1. No evidence of PE. 2. No evidence aortic dissection or aneurysm. 3. Minimal atelectatic changes in both lower lobes. VTE: negative. Critical Care Time Critical Care Time Critical Care Time: Yes Total Critical Care Time: 60 Attestation: I have personally provided critical care time. Time includes review of lab data, radiology results, discussion with consultants, and monitoring for potential decompensation. Intervention performed as documented. Discharge Plan Discharge Clinical Impression: Syncope, Abrasion of skin Patient Disposition: Home, Self-Care Instructions: Syncope (ED) Additional Instructions: Please follow-up with your primary care physician tomorrow. If you have any worsening or new symptoms, please return to the emergency room or call 911 Prescriptions: No Action abiraterone 250 mg tablet 500 mg PO BEDTIME 90 Days Qty: 180 3RF Rx Instructions: must be taken on empty stomach, at least 1 hr before or 2 hrs after a meal/food cholecalciferol (vitamin D3) 50 mcg (2,000 unit) capsule 1 cap PO DAILY atorvastatin 40 mg tablet 1 tab PO BEDTIME tamsulosin 0.4 mg capsule 1 cap PO BID meclizine 25 mg tablet 25 mg PO BID PRN (Reason: dizziness) Qty: 10 0RF riboflavin (vitamin B2) 100 mg Tablet 100 mg PO BID magnesium 250 mg Tablet 250 mg PO BID topiramate 100 mg Tablet 100 mg PO BID Qty: 60 0RF loperamide [Anti-Diarrheal (loperamide)] 2 mg capsule 2 mg PO Q6H PRN (Reason: loose stool) Qty: 30 0RF ondansetron 4 mg tablet,disintegrating 4 mg PO Q6H PRN (Reason: nausea and vomiting) Qty: 14 0RF amlodipine 2.5 mg tablet 2.5 mg PO DAILY levetiracetam 500 mg tablet 1,000 mg PO BID topiramate 50 mg tablet 50 mg PO BID prednisone 2.5 mg tablet 2.5 mg PO BID Eliquis 5 mg tablet 5 mg PO BID
[2023-06-21 19:03] LABS: MANUAL DIFF FLAG NO
[2023-06-21 19:06] VITALS: BP 113/69; BP 97/81; PULSE 58; PULSE 59
[2023-06-21 19:06] LABS: Basophils Absolute Auto 0.1 X10*3/uL (0.0-0.2); Basophils Percent Auto 0.8 % (0-2); Eosinophils Absolute Auto 0.1 X10*3/uL (0.0-0.4); Eosinophils Percent Auto 1.5 % (0-4); Hematocrit 39.9 % (42.0-52.0); Hemoglobin 13.1 g/dl (14.0-18.0); Imm Gran Abs Auto 0.02 X10*3/uL (0.00-0.03); Imm Gran Pct Auto 0.3 % (0.0-0.4); Lymphocytes Absolute Auto 2.6 X10*3/uL (1.2-4.9); Lymphocytes Percent Auto 34.7 % (20-40); Mean Corpuscular HGB Conc 32.8 g/dl (31.0-36.0); Mean Corpuscular Hemoglobin 33.7 pg (27.0-33.0); Mean Corpuscular Volume 102.6 fL (80.0-98.0); Mean Platelet Volume 9.3 fL (9.4-12.4); Monocytes Absolute Auto 0.6 X10*3/uL (0.1-1.2); Monocytes Percent Auto 8.1 % (2-11); Neutrophils Absolute Auto 4.1 x10*3/uL (2.0-8.3); Neutrophils Percent Auto 54.6 % (45-73); Platelet Count 227 X10*3/uL (160-400); Red Blood Count 3.89 X10*6/uL (4.60-5.80); Red Cell Distribution Width 12.7 % (11.0-16.0); White Blood Count 7.5 X10*3/uL (4.8-10.8)
[2023-06-21 19:09] VITALS: BP 156/70; PULSE 85
--- OUTSIDE RECORDS SUMMARY | 2023-06-21 19:09 | XMS_ITS | Continuity of Care Document ---
Author Name Unknown Organization [facility] Address [address] [place] [id number]- Care Team Providers Care Elevator Erector Helper Name Role Phone Not on Staff, PCP Primary Care Physician Unavail able Encounter [facility] Date(s): 08/13/22 - 09/12/[address] [id number]- Attending Physician: Not on Staff, Attending MD Admitting Physician: Not on Staff, Admitting MD Referring Physician: Not on Staff, Referring MD Patient Care team information Care Team Personnel Name: Not on Staff, PCP Position: [facility] Physician (General Medicine) Member Role: PCP
--- OUTSIDE RECORDS SUMMARY | 2023-06-21 19:09 | XMS_ITS | Continuity of Care Document ---
Author Name Unknown Organization [facility] Address [address] [place] [address]- Care Team Providers Care Senior [employer] Net Developer Name Role Phone Not on Staff, PCP Primary Care Physician Unavail able Encounter 08/14/22 - 10/11/22 [facility] Visiting Nurse [facility] [address] [place] [address]- Discharge Disposition: GOALS MET Patient Care team information Care Team Personnel Name: Not on Staff, PCP Position: [facility] Physician (General Medicine) Member Role: PCP
[2023-06-21 19:11] VITALS: BP 134/70; PULSE 72; RESP 16; TEMP 36.6; O2SAT 97
[2023-06-21 19:12] LABS: INTERNATIONAL NORM RATIO 0.9 (0.9-1.1)
--- NOTE | 2023-06-21 19:18 | MHC.EDTECH ---
THIS PCT ASSUMED CARE OF PATIENT AT 1900 ,ORTHOSTATICS VITALS SIGN TAKEN AND URINE SAMPLE COLLECTED AND SENT TO LAB ,PT RESTING QUIETLY IN BED .
[2023-06-21 19:19] LABS: Lactic Acid 0.9 mmol/L (0.5-2.0)
[2023-06-21 19:23] LABS: Alanine Aminotransferase 23 U/L (0-40); Albumin Level 3.5 g/dL (3.5-5.0); Alkaline Phosphatase 77 U/L (39-117); Anion Gap 10 (12-20); Aspartate Amino Transferase 21 U/L (5-37); Bilirubin Direct 0.2 mg/dL (0.0-0.5); Bilirubin Total 0.7 mg/dL (0.0-1.0); Blood Urea Nitrogen 25 mg/dL (9-16); Calcium 9.3 mg/dL (8.4-10.2); Carbon Dioxide 24 mmol/L (22-29); Chloride 113 mmol/L (96-108); Creatinine Clr Calc Pharmacy 82.3; Estimated Glomerular Filt Rate > 60; Ethanol < 10 mg/dL; Glucose Random 95 mg/dL (60-115); Potassium 4.6 mmol/L (3.3-5.1); Sodium 142 mmol/L (135-145); Total Protein 6.6 g/dL (6.5-8.0)
[2023-06-21 19:30] LABS: Troponin-I High Sensitivity 5.2 ng/L (<3.5-35.0)
--- NOTE | 2023-06-21 19:32 | PC.NURSE ---
assumed care of pt at 1900, pt resting quietly, tech at bedside obtaining orthostatic vitals, pt pending CT scans.
[2023-06-21 19:36] LABS: Appearance Urine Clear; Color Urine Straw; Glucose Urine UA Negative (Negative); Leukocyte Esterase Urine Negative (Negative); Nitrite Urine Negative (Negative); PH 7.5 (5.0-9.0); Urine Blood Negative (Negative); Urine Ketones Negative (Negative); Urine Protein Negative (Neg-Trace)
[2023-06-21] MEDS: iohexoL 350 MG/ML 100 ML INFUS..BTL IV (19:46)
[2023-06-21 20:26] LABS: Amphetamine Screen Urine Not Detected (Not Detect); Barbiturates, Urine Not Detected (Not Detect); Benzodiazepines Screen Urine Not Detected (Not Detect); Cannabinoid Screen Urine Not Detected (Not Detect); Cocaine Screen Urine Not Detected (Not Detect); Fentanyl, urine Not Detected (Not Detect); Opiate Screen Urine Not Detected (Not Detect); Phencyclidine Screen Urine Not Detected (Not Detect)
[2023-06-21 22:00] VITALS: BP 140/54; PULSE 54; RESP 16; TEMP 36.7; O2SAT 97
--- NOTE | 2023-06-21 22:07 | MHC.EDTECH ---
2200 rounding done ,vitals sign taken ,pt repeated trop drawn and sent to lab .
[2023-06-21 22:32] LABS: Troponin-I High Sensitivity < 2.7 ng/L (<3.5-35.0)
--- NOTE | 2023-06-22 | MHC.EDTECH ---
call out to paty at [phone] to book transport for pt back home, estimated eta given was [phone]
[2023-06-22 01:55] VITALS: BP 136/85; PULSE 100; RESP 18; TEMP 36.7; O2SAT 95
== END 2023-06-22 02:22 | disposition home or self-care (01) ==
PROVIDERS: Emergency Provider Emergency Medicine; PCP Internal Medicine Pulmonary Disease
DX: S00.91XA Abrasion of unspecified part of head, initial encounter (principal); R55 Syncope and collapse; R51.9 Headache, unspecified; M54.2 Cervicalgia; W01.0XXA Fall on same level from slipping, tripping and stumbling without subsequent striking against object, initial encounter; Y93.9 Activity, unspecified; Y92.9 Unspecified place or not applicable; Y99.9 Unspecified external cause status; Z79.899 Other long term (current) drug therapy; Z79.01 Long term (current) use of anticoagulants
CPT/HCPCS: 36415; 70450; 71275; 72125; 80048; 80076; 80307; 81003; 83605; 83735; 84484; 85025; 85610; 93005; 99284; Q9967

== ENCOUNTER → 2023-07-16 11:35 | Outpatient (REF) | payer OTHER, SELFPAY ==
--- NOTE | ~2023-07-16 | NM_ITS ---
EXAMINATION: NM BONE SCAN OF THE WHOLE BODY CLINICAL INFORMATION: Malignant neoplasm of prostate. COMPARISON: Several prior bone scans are available for comparison, the most recent dated 01/03/2023. Radiographs of the abdomen and lumbar spine dated 05/22/2023 and of the chest dated 04/22/2023 are available for comparison. TECHNIQUE: Multiple gamma scintillation camera images of the whole body were performed 3 hours following the intravenous administration of 33 mCi Tc-99m MDP. FINDINGS: In the head, mildly increased activity in the paranasal sinus region is noted and is likely related to sinusitis. In the thoracic cage and upper extremities, moderately intense foci of increased activity are present at the costochondral junctions of the left fourth and fifth ribs. An additional mild focus of increased activity is present in the anterolateral aspect of the left second rib. There is minimally increased activity in the sternoclavicular joints bilaterally. A small focus of residual radiopharmaceutical at the injection site in the right antecubital fossa is noted. In the spine, there is a focus of mildly increased activity in the right side of the lumbosacral junction. In the pelvis, no significant abnormalities are present. In the lower extremities, there is minimally increased activity in the right ankle. No other definite bony abnormalities are noted. The urinary bladder and faint visualization of both kidneys are noted. Compared to the previous bone scan dated 01/03/2023, the left-sided rib lesions are all new. The remainder the scan is not significantly changed. NM/NM bone scan whole body IMPRESSION: New left-sided rib lesions are nonspecific but the involvement of adjacent regions suggests these are traumatic in etiology. This could be further characterized with plain radiographs, if clinically indicated, although it is common for radiographs to not visualize abnormalities well seen on bone scan. A few additional Mild nonspecific abnormalities are noted as described above and these are all likely arthritic or traumatic in etiology. None of these abnormalities is strongly suspicious for metastatic disease.
== END ==
LOC: HO.NUCMED 11:35
PROVIDERS: Referring Provider Family Medicine; Visit Provider Urology
DX: M54.50 Low back pain, unspecified (principal); C61 Malignant neoplasm of prostate; C79.51 Secondary malignant neoplasm of bone
CPT/HCPCS: 78306; A9503

== ENCOUNTER 2023-07-27 08:00 | Outpatient (REF) | payer OTHER, SELFPAY ==
[2023-07-27 10:43] LABS: Prostate Specific Antigen 0.65 ng/mL (<0.05-4.0)
[2023-08-02 13:33] LABS: Testosterone, Total <1 ng/dL (250-1100)
== END 2023-07-27 08:01 | disposition home or self-care (01) ==
LOC: HO.LAB 08:00
PROVIDERS: PCP Family Medicine; Visit Provider Urology
DX: Z12.5 Encounter for screening for malignant neoplasm of prostate (principal); C61 Malignant neoplasm of prostate; C79.51 Secondary malignant neoplasm of bone
CPT/HCPCS: 36415; 84153; 84403

== ENCOUNTER 2023-08-02 08:16 | Outpatient (AMB) | payer OTHER, SELFPAY ==
--- NOTE | 2023-08-02 10:19 | A.OFFVIS_ITS ---
Intake Intake Visit Reasons: 3M PSA/TESTOSTERONE/NM SCAN(Testo pending) Intake Note: Patient is Present for Telephone Follow Up LABS/SCAN Urology Med: Tamsulosin Antibiotic Allergy: None Blood Thinner: Eliquis Pharamcy: [facility] Allergies oxycodone [Percocet] Adverse Reaction (Intermediate, Verified 08/02/23 10:20) face got really red Medication List - Last Reconciled 08/02/23 by Dom Maier MD amlodipine 2.5 mg PO DAILY apixaban (Eliquis) 5 mg PO BID atorvastatin 1 tab PO BEDTIME cholecalciferol (vitamin D3) 1 cap PO DAILY levetiracetam 1,000 mg PO BID loperamide (Anti-Diarrheal (loperamide)) 2 mg PO Q6H PRN magnesium 250 mg PO BID meclizine 25 mg PO BID PRN ondansetron 4 mg PO Q6H PRN prednisone 2.5 mg PO BID riboflavin (vitamin B2) 100 mg PO BID tamsulosin 1 cap PO BID topiramate 100 mg PO BID topiramate 50 mg PO BID HPI HPI Comments History of Present Illness Details Kody is a very pleasant male. He is a patient of Dr. Acosta. He is seen for the following urologic conditions - prostate cancer - bladder cancer - urinary papilloma Telemedicine Evaluation 15 min Consultation Doximity Carlos Video attempted 08/06 - PSA 0.65 T low Bone Scan - A few additional Mild nonspecific abnormalities are noted as described above and these are all likely arthritic or traumatic in etiology. None of these abnormalities is strongly suspicious for metastatic disease Remains on GnRH as single therapy 3m f/u Cystoscopy 07/07 CT with question of residual prosta te activity - may benefit from PSMA scan 05/06 - PSA 0.5 T<1 PSA low Prolia and GnRH agonist today Three month follow-up labs with bone scan Has been on combined therapy for 3 years Prostate cancer 12/30 initial treatment XRT with rising PSA and a bone scan lesion 01/04 PSA 0.4 T <1 - continue oral antian drogen. Bone scan normal. Abdominal CT scan normal. 10/05 Abiraterone 2 tab daily - GnRH adm inistered 05/05 abiraterone 2 tabs daily since seiz ure 04/05 GnRH with abiraterone - reduced to 3 tabs daily Prostate cancer metastatic Biopsy 12/30 - multicore Ty 8, PSA 96 Initial treatment EXBRT 1/20 Metastatic treatment combination GnRH injections with oral antiantigen PSA 09/03 0.2, 03/04 PSA 0.23, 07/05 0.2 T 9, 01/03 P 0.4 T 122, 04/05 0.3, 07/06 0.3, 10/05 0.6 T 3, 04/06 0.5 T <1 Imaging 11/03 bone scan with evidence of metastatic disease to the ribs and iliac crest - 11/[address] no evidence of bon y metastases - 03/04 bone scan shows improvement, dens ity shows osteopenia - 12/06 Bone Scan with improvement on gianfranco ac crest - 06/05 Bone Density - osteopenia - on ca lcium supplementation - 07/06 bone scan with minimal evidence o f bony metastases Bladder cancer recurrent low-grade 12/2020, 06/05, 05/06 Initial diagnosis July 2018 low-grade superficial Cystoscopy Aug 2020 small superficial recurrence, 04/04 NAD, 08/04 NAD Cytology 04/05 NAD Intervention - December 2020 TURBT 2 cm with satellite lesions, 06/05 multiple small lesions removed (small preperitoneal bladder perf) - 04/06 urinary papilloma Pathology - December 2020 low-grade bladder cancer, 06/05 low-grade superficial - 04/06 Inflammatory Adjuvant therapy - January 2021 6 week gemcitabine induction, 08/04 3 weeks gemcitabine 06/05 6 week reinduction gemcitabine PFSH Medical History Pulmonary emboli Hx of migraines CKD (chronic kidney disease), stage III Dizziness Malignant tumor of prostate (05/16/21) Hyperlipidemia (05/16/21) Essential hypertension (05/16/21) Complex partial seizure disorder Seizure disorder Tremor Cerebral microvascular disease Bone cancer Bladder cancer Bladder tumor Prostate CA Hematuria Elevated cholesterol HTN (hypertension) Surgical History Hx of colonoscopy History of cystoscopy H/O prostate biopsy Social History Household Members: Spouse Housing: House Are you a primary healthcare corporate account director to a significant other at home: No Do you presently have visiting nurse or other home services: No Alcohol intake: never Patient Tobacco Use Status: Never used Tobacco Second Hand Smoke Exposure: No Advance Directives Date on File: 05/22/22 service: No Current occupational status: retired Assessment & Plan Assessment & Plan Orders: Orders Testosterone, Total 3 Months C61 - Malignant neoplasm of prostate, C79.51 - Secondary malignant neoplasm of bone Prostate Specific Antigen 3 Months C61 - Malignant neoplasm of prostate, C79.51 - Secondary malignant neoplasm of bone Telehealth Telehealth Location of provider rendering services: practice address Location of patient: address on file Patient Identification confirmed using: Name, : Yes Telehealth method: voice only Patient verbally consented to treatment: Yes Patient verbally consented to billing insurance company: Yes Patient informed of any privacy concerns related to visit: Yes Coding Level of Care Code Tele Est Pt Level 3 (50585)
== END 2023-08-02 11:47 | disposition home or self-care (01) ==
LOC: HO.HUSH 08:16
PROVIDERS: PCP Family Medicine; Visit Provider Urology
DX: C61 Malignant neoplasm of prostate (principal); C79.51 Secondary malignant neoplasm of bone
CPT/HCPCS: 99442

== ENCOUNTER → 2023-08-02 08:16 | Outpatient (BNVA) | payer OTHER, SELFPAY | PROVIDERS: PCP Family Medicine; Visit Provider Urology ==

== ENCOUNTER 2023-08-29 14:55 | Outpatient (REF) | payer OTHER, SELFPAY ==
[2023-08-29 16:56] LABS: Urine Cytology See Pathology rpt
== END 2023-08-29 14:56 | disposition home or self-care (01) ==
LOC: HO.LAB 14:55
PROVIDERS: PCP Family Medicine; Visit Provider Urology
DX: C67.1 Malignant neoplasm of dome of bladder (principal); C61 Malignant neoplasm of prostate; C79.51 Secondary malignant neoplasm of bone
CPT/HCPCS: 52000; 81003; 88112

== ENCOUNTER 2023-08-29 14:55 | Outpatient (AMB) | payer OTHER, SELFPAY ==
--- NOTE | 2023-08-29 15:20 | A.OFFVIS_ITS ---
Intake Intake Visit Reasons: cysto Intake Note: Patient is Present for Cystoscopy Urology Med: Tamsulosin, Antibiotic Allergy: None Blood Thinner:None URO- G Disposable Cystoscope lot: [id number] exp: 03/28/25 Patient stopped Abiraterone on 05/18/2023 Allergies oxycodone [Percocet] Adverse Reaction (Intermediate, Verified 08/29/23 15:24) face got really red HPI HPI Comments History of Present Illness Details Kody is a very pleasant male. He is a patient of Dr. Acosta. He is seen for the following urologic conditions - prostate cancer - bladder cancer - urinary papilloma Cystoscopy - small lesion left lobe bladder sidewall - plan repeat cysto in 3 months with helena dder biopsy check cystoscopy in labs 08/06 - PSA 0.65 T low Bone Scan - A few additional Mild nonspecific abnormalities are noted as described above and these are all likely arthritic or traumatic in etiology. None of these abnormalities is strongly suspicious for metastatic disease Remains on GnRH as single therapy 07/07 CT with question of residual prosta te activity - may benefit from PSMA scan 05/06 - PSA 0.5 T<1 PSA low Prolia and GnRH agonist today Three month follow-up labs with bone scan Has been on combined therapy for 3 years Prostate cancer 12/30 initial treatment XRT with rising PSA and a bone scan lesion 01/04 PSA 0.4 T <1 - continue oral antian drogen. Bone scan normal. Abdominal CT scan normal. 10/05 Abiraterone 2 tab daily - GnRH adm inistered 05/05 abiraterone 2 tabs daily since seiz ure 04/05 GnRH with abiraterone - reduced to 3 tabs daily Prostate cancer metastatic Biopsy 12/30 - multicore [place] 8, PSA 96 Initial treatment EXBRT 11/03 Metastatic treatment combination GnRH injections with oral antiantigen PSA 09/03 0.2, 03/04 PSA 0.23, 07/05 0.2 T 9, 01/03 P 0.4 T 122, 04/05 0.3, 07/06 0.3, 10/05 0.6 T 3, 04/06 0.5 T <1 Imaging 11/03 bone scan with evidence of metastatic disease to the ribs and iliac crest - 11/[address] no evidence of bon y metastases - 03/04 bone scan shows improvement, dens ity shows osteopenia - 12/06 Bone Scan with improvement on gianfranco ac crest - 06/05 Bone Density - osteopenia - on ca lcium supplementation - 07/06 bone scan with minimal evidence o f bony metastases Bladder cancer recurrent low-grade 12/2020, 06/05, 05/06 Initial diagnosis July 2018 low-grade superficial Cystoscopy Aug 2020 small superficial recurrence, 04/04 NAD, 08/04 NAD, 09/06 Cytology 04/05 NAD Intervention - December 2020 TURBT 2 cm with satellite lesions, 06/05 multiple small lesions removed (small preperitoneal bladder perf) - 04/06 urinary papilloma Pathology - December 2020 low-grade bladder cancer, 06/05 low-grade superficial - 04/06 Inflammatory Adjuvant therapy - January 2021 6 week gemcitabine induction, 08/04 3 weeks gemcitabine 06/05 6 week reinduction gemcitabine PFSH Medical History Pulmonary emboli Hx of migraines CKD (chronic kidney disease), stage III Dizziness Malignant tumor of prostate (05/16/21) Hyperlipidemia (05/16/21) Essential hypertension (05/16/21) Complex partial seizure disorder Seizure disorder Tremor Cerebral microvascular disease Bone cancer Bladder cancer Bladder tumor Prostate CA Hematuria Elevated cholesterol HTN (hypertension) Surgical History Hx of colonoscopy History of cystoscopy H/O prostate biopsy Social History Household Members: Spouse Housing: House Are you a primary client care specialist to a significant other at home: No Do you presently have visiting nurse or other home services: No Alcohol intake: never Patient Tobacco Use Status: Never used Tobacco Second Hand Smoke Exposure: No Advance Directives Date on File: 05/22/22 service: No Current occupational status: retired Review of Systems Const Denies chills and Denies fever(s) Card Reports no additional complaints and Denies syncope Resp Denies cough GI Denies abdominal pain and Denies heartburn Reports as per HPI and Denies change in libido Neuro Denies syncope Psych Denies change in libido Endo Denies change in libido Physical Exam Const General: cooperative, healthy appearing, comfortable and no acute distress Orientation/consciousness: patient oriented x3 HEENT Face and sinus: Yes normal facial exam Mouth: moist mucous membranes Neck Neck: Yes normal visual inspection, Yes full ROM and Yes trachea midline Chest Chest palpation & inspection: normal inspection of the chest Resp Effort & Inspection: normal respiratory effort, able to speak in complete sentences and no respiratory distress GI Inspection: Yes normal to inspection Back/Spine/Pelvis Cervical Spine: normal cervical lordosis Thoracic/Lumbar Spine: thoracic and lumbar spine normal to inspection Skin General skin exam: no rashes or lesions noted Neuro General: patient oriented x3, gait normal, tone normal and moves all extremities Extrem General: Yes normal to inspection and Yes capillary refill normal Office Procedures Cystoscopy Consent Discussed risk and benefit or proposed procedure with the patient. Information consent for procedure given to the patient. Discussed technical aspects, risks, benefits and alternatives in full. Addressed all of the patient's questions and concerns regarding the procedure. The patient demonstrated knowledge and understanding. They wish to proceed with this procedure. Preparation The patient was prepped in the usual manner. A shaker repairer was present and in the room. Genitalia was prepped with betadine solution in a sterile manner. Lidocaine Jelly 2% was placed into the urethra and 16Fr flexible Olympus cystoscope was inserted into the meatus after adequate lubrication. Procedure Meatus circumcised Urethra anterior and posterior urethra normal Prostatic Urethra unremarkable Bladder examination with retroflexion of cystoscope Bladder Orifices normal shape and position Bladder Capacity medium Trabeculations grade 1 to Cellule Formation mild Diverticulum Formation - Mucosal Erythema - Bladder Tumor scarring, small recurrence left law sizable superficial [id number] DISPOSABLE SCOPE URO-G FLEXIBLE SCOPE Procedure code (CPT) selection complete Office Meds lidocaine HCl 2 % mucosal jelly in applicator Performing Provider: Dom Maier MD [facility] Administered by: Ce Tan RN on 08/29/23 15:40 Dose Route Admin Location Dispensed Lot Number Expiration Date [facility] Audio Production Manager 10 mL intra-urethral 10 mL nitrofurantoin monohydrate/macrocrystals 100 mg capsule Performing Provider: Dom Maier MD [facility] Administered by: Ce Tan RN on 08/29/23 15:40 Dose Route Admin Location Dispensed Lot Number Expiration Date [facility] Audio Production Manager 100 mg PO 1 cap naproxen 500 mg tablet Performing Provider: Dom Maier MD [facility] Administered by: Ce Tan RN on 08/29/23 15:40 Dose Route Admin Location Dispensed Lot Number Expiration Date [facility] [employer] Production Manager 500 mg PO 1 tab Results AMB Urinalysis, Automated UA Leukoctes 0 Jeff/uL Last Edit by Sherry Ludwig, RMA on 08/29/23 15:38 UA Nitrite Negative Last Edit by Sherry Ludwig, RMA on 08/29/23 15:38 UA Urobilinogen 0.2 mg/dL Last Edit by Sherry Ludwig, RMA on 08/29/23 15:3 8 UA Protein 15 mg/dL Last Edit by Sherry Ludwig, RMA on 08/29/23 15:38 UA pH 6.0 Last Edit by Sherry Ludwig, RMA on 08/29/23 15:38 UA Blood 0 Phi/uL Last Edit by Sherry Ludwig, A on 08/29/23 15:38 UA Specific [place] 1.015 Last Edit by Sherry Ludwig, A on 08/29/23 15: 38 UA Ketone Negative Last Edit by Sherry Ludwig, RMA on 08/29/23 15:38 UA Bilirubin 0 mg/dL Last Edit by Sherry Ludwig, RMA on 08/29/23 15:38 UA Glucose 0 mg/dL Last Edit by Sherry Ludwig, RMA on 08/29/23 15:38 Results Reviewed Results Reviewed: Laboratory Last Values Urine pH (Auto) 6.0 08/29/23 15:26 Specific [place] (Auto) 1.015 08/29/23 15:26 Urine Protein (Auto) 15 mg/dL 08/29/23 15:26 Glucose (UA)(Auto) 0 mg/dL 08/29/23 15:26 Urine Ketones (Auto) Negative 08/29/23 15:26 Urine Blood (Auto) 0 Phi/uL 08/29/23 15:26 Urine Nitrite (Auto) Negative 08/29/23 15:26 Urine Bilirubin (Auto) 0 mg/dL 08/29/23 15:26 Urine Urobilinogen (Auto) 0.2 mg/dL 08/29/23 15:26 Leukocyte Esterase (Auto) 0 Jeff/uL 08/29/23 15:26 Assessment & Plan Assessment & Plan (1) Prostate cancer metastatic to bone: Code(s): C61 - Malignant neoplasm of prostate; C79.51 - Secondary malignant neoplasm of bone (2) Bladder cancer: Comment: Recurrent low-grade multifocal - 06/05 Code(s): C67.9 - Malignant neoplasm of bladder, unspecified Qualifiers: Bladder location: dome Qualified Code(s): C67.1 - Malignant neoplasm of dome of bladder Plan Three month follow-up cystoscopy, bladder biopsy, fulguration in office Orders: Orders Prostate Specific Antigen 3 Months C61 - Malignant neoplasm of prostate, C79.51 - Secondary malignant neoplasm of bone AMB Urinalysis Automated Today Z13.9 - Encounter for screening, unspecified AMB Cystoscopy Today C67.1 - Malignant neoplasm of dome of bladder Urine Cytology Today C67.1 - Malignant neoplasm of dome of bladder Testosterone, Total 3 Months C61 - Malignant neoplasm of prostate, C79.51 - Secondary malignant neoplasm of bone Patient Instructions: Imaging studies, laboratory and physical exam results were discussed and reviewed in detail. No major barriers to patient understanding were identified. An opportunity to ask questions regarding the treatment plan was provided. All questions were answered. The patient expressed understanding and agreement with the above treatment plan. The patient is aware they should contact our office by phone for worsening of their current condition or the appearance of new urologic symptoms. Compliance is encouraged with any medications and followup testing that is ordered. It is a privilege to participate in the urologic care of your patient. If you have any questions or concerns regarding treatment for the above conditions, or other urologic issues, please do not hesitate to contact me. The office telephone contact is [phone]. This note is constructed using voice recognition software. While every effort has been made to ensure accuracy mechanical development engineer errors may have been included. Yours sincerely, Dr Dom Maier MD, [facility] - Urology Providers of Expert, Compassionate Care for the Genitourinary System Coding Level of Care Code Est Pt Level 3 (69052) Diagnoses Prostate cancer metastatic to bone C61; C79.51 Malignant neoplasm of dome of urinary bladder C67.1 Bladder location: dome CPT Codes Cystoscopy - CPT: [id number] ([id number])
== END 2023-08-29 16:02 | disposition home or self-care (01) ==
PROVIDERS: PCP Family Medicine; Visit Provider Urology
DX: C61 Malignant neoplasm of prostate (principal); C79.51 Secondary malignant neoplasm of bone; C67.1 Malignant neoplasm of dome of bladder; Z13.9 Encounter for screening, unspecified
CPT/HCPCS: 52000

== ENCOUNTER 2023-12-07 10:40 | Outpatient (AMB) | payer OTHER, SELFPAY ==
--- NOTE | 2023-12-07 10:40 | A.OFFVIS_ITS ---
Intake Intake Visit Reasons: 3M PSA/Testo(set) Intake Note: Patient is Present for Follow Up Urology Medication: Tamsulosin Antibiotic Allergies: None Blood Thinners: None Allergies oxycodone [Percocet] Adverse Reaction (Intermediate, Verified 12/07/23 10:45) face got really red HPI HPI Comments History of Present Illness Details Kody is a very pleasant male. He is a patient of Dr. Acosta. 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 None of these abnormalities is strongly suspicious for metastatic disease Remains on GnRH as single therapy Cystoscopy - small lesion left lobe bladder sidewall - plan repeat cysto in 3 months with helena abdi biopsy check cystoscopy in labs 07/07 CT with question of residual prosta te activity - may benefit from PSMA scan 05/06 - PSA 0.5 T<1 PSA low Prolia and GnRH agonist today Three month follow-up labs with bone scan Has been on combined therapy for 3 years Prostate cancer 12/30 initial treatment XRT with rising PSA and a bone scan le candido 01/04 PSA 0.4 T <1 - continue oral antian drogen. Bone scan normal. Abdominal CT scan normal. 10/05 Abiraterone 2 tab daily - GnRH adm inistered 05/05 abiraterone 2 tabs daily since seiz ure 04/05 GnRH with abiraterone - reduced to 3 tabs daily Prostate cancer metastatic Biopsy 12/30 - multicore Graham 8, PSA 96 Initial treatment EXBRT 11/03 Metastatic treatment combination GnRH injections with oral antiantigen PSA 09/03 0.2, 03/04 PSA 0.23, 07/05 0.2 T 9, 01/03 P 0.4 T 122, 04/05 0.3, 07/06 0.3, 10/05 0.6 T 3, 04/06 0.5 T <1 Imaging 11/03 bone scan with evidence of metastatic disease to the ribs and iliac crest - 11/[address] no evidence of bon y metastases - 03/04 bone scan shows improvement, dens ity shows osteopenia - 12/06 Bone Scan with improvement on gianfranco ac crest - 06/05 Bone Density - osteopenia - on ca lcium supplementation - 07/06 bone scan with minimal evidence o f bony metastases Bladder cancer recurrent low-grade 12/2020, 06/05, 05/06 Initial diagnosis July 2018 low-grade superficial Cystoscopy Aug 2020 small superficial recurrence, 04/04 NAD, 08/04 NAD, 09/06 Cytology 04/05 NAD Intervention - December 2020 TURBT 2 cm with satellite lesions, 06/05 multiple small lesions removed (small preperitoneal bladder perf) - 04/06 urinary papilloma Pathology - December 2020 low-grade bladder cancer, 06/05 low-grade superficial - 04/06 Inflammatory Adjuvant therapy - January 2021 6 week gemcitabine induction, 08/04 3 weeks gemcitabine 06/05 6 week reinduction gemcitabine PFSH Medical History Pulmonary emboli Hx of migraines CKD (chronic kidney disease), stage III Dizziness Malignant tumor of prostate (05/16/21) Hyperlipidemia (05/16/21) Essential hypertension (05/16/21) Complex partial seizure disorder Seizure disorder Tremor Cerebral microvascular disease Bone cancer Bladder cancer Bladder tumor Prostate CA Hematuria Elevated cholesterol HTN (hypertension) Surgical History Hx of colonoscopy History of cystoscopy H/O prostate biopsy Social History Household Members: Spouse Housing: House Are you a primary veterinarian laboratory animal care to a significant other at home: No Do you presently have visiting nurse or other home services: No Alcohol intake: never Comment: no count Patient Tobacco Use Status: Never used Tobacco Second Hand Smoke Exposure: No Advance Directives Date on File: 05/22/22 service: No Current occupational status: retired Review of Systems Const Denies chills and Denies fever(s) Card Reports no additional complaints and Denies syncope Resp Denies cough GI Denies abdominal pain and Denies heartburn Reports as per HPI and Denies change in libido Neuro Denies syncope Psych Denies change in libido Endo Denies change in libido Physical Exam Const General: cooperative, healthy appearing, comfortable and no acute distress Orientation/consciousness: patient oriented x3 HEENT Face and sinus: Yes normal facial exam Mouth: moist mucous membranes Neck Neck: Yes normal visual inspection, Yes full ROM and Yes trachea midline Chest Chest palpation & inspection: normal inspection of the chest Resp Effort & Inspection: normal respiratory effort, able to speak in complete sentences and no respiratory distress GI Inspection: Yes normal to inspection Back/Spine/Pelvis Cervical Spine: normal cervical lordosis Thoracic/Lumbar Spine: thoracic and lumbar spine normal to inspection Skin General skin exam: no rashes or lesions noted Neuro General: patient oriented x3, gait normal, tone normal and moves all extremities Extrem General: Yes normal to inspection and Yes capillary refill normal Assessment & Plan Assessment & Plan (1) Osteopenia due to cancer therapy: Code(s): M85.80 - Other specified disorders of bone density and structure, unspecified site (2) Prostate cancer metastatic to bone: Code(s): C61 - Malignant neoplasm of prostate; C79.51 - Secondary malignant neoplasm of bone (3) Bladder cancer: Comment: Recurrent low-grade multifocal - 06/05 Code(s): C67.9 - Malignant neoplasm of bladder, unspecified Qualifiers: Bladder location: dome Qualified Code(s): C67.1 - Malignant neoplasm of dome of bladder Plan Three-month follow-up office cystoscopy Prostate cancer imaging with DEXA and bone scan with labs Plan Prolia three-month Orders: Orders Testosterone, Total 3 Months C61 - Malignant neoplasm of prostate, C79.51 - Secondary malignant neoplasm of bone XR DEXA axial skeleton 3 Months C61 - Malignant neoplasm of prostate, C79.51 - Secondary malignant neoplasm of bone Prostate Specific Antigen 3 Months C61 - Malignant neoplasm of prostate, C79.51 - Secondary malignant neoplasm of bone NM bone scan whole body 3 Months C61 - Malignant neoplasm of prostate, C79.51 - Secondary malignant neoplasm of bone Patient Instructions: Imaging studies, laboratory and physical exam results were discussed and reviewed in detail. No major barriers to patient understanding were identified. An opportunity to ask questions regarding the treatment plan was provided. All questions were answered. The patient expressed understanding and agreement with the above treatment plan. The patient is aware they should contact our office by phone for worsening of their current condition or the appearance of new urologic symptoms. Compliance is encouraged with any medications and followup testing that is ordered. It is a privilege to participate in the urologic care of your patient. If you have any questions or concerns regarding treatment for the above conditions, or other urologic issues, please do not hesitate to contact me. The office telephone contact is [phone]. This note is constructed using voice recognition software. While every effort has been made to ensure accuracy assistant professor of business errors may have been included. Yours sincerely, Dr Dom Maier MD, [facility] - Urology Providers of Expert, Compassionate Care for the Genitourinary System Coding Level of Care Code Est Pt Level 4 (42181) Diagnoses Osteopenia due to cancer therapy M85.80 Prostate cancer metastatic to bone C61; C79.51 Malignant neoplasm of dome of urinary bladder C67.1 Bladder location: dome
== END 2023-12-07 11:19 | disposition home or self-care (01) ==
PROVIDERS: PCP Family Medicine; Visit Provider Urology
DX: M85.80 Other specified disorders of bone density and structure, unspecified site (principal); C61 Malignant neoplasm of prostate; C79.51 Secondary malignant neoplasm of bone; C67.1 Malignant neoplasm of dome of bladder
CPT/HCPCS: 99214

== ENCOUNTER → 2023-12-07 10:40 | Outpatient (BNVA) | payer OTHER, SELFPAY | PROVIDERS: PCP Family Medicine; Visit Provider Urology | DX: M85.80 Other specified disorders of bone density and structure, unspecified site (principal); C61 Malignant neoplasm of prostate; C79.51 Secondary malignant neoplasm of bone | CPT/HCPCS: 99212 ==

== ENCOUNTER → 2024-02-19 09:35 | Outpatient (REF) | payer OTHER, SELFPAY ==
--- NOTE | ~2024-02-19 | NM_ITS ---
EXAMINATION: NM BONE SCAN OF THE WHOLE BODY CLINICAL INFORMATION: Malignant neoplasm of prostate. COMPARISON: Most recent prior whole-body bone scan done on 07/16/2023. TECHNIQUE: Multiple gamma scintillation camera images of the whole body were performed 2.25 hours following the intravenous administration of 33 mCi Tc-99m MDP. FINDINGS: In the head, no suspicious focal lesion. In the thoracic cage and upper extremities, previously documented tracer avidity involving 2 adjacent left anterior rib, specifically fourth and fifth ribs show interval normalization. However, there is a new focal intense tracer avidity present involving the anterior aspect of the costochondral junction of the left sixth rib, likely represent posttraumatic change. Radiographic correlation is recommended. In the spine, no suspicious focal lesion. In the pelvis, no suspicious focal lesion. In the lower extremities, focal increased tracer avidity along the medial aspect of the right knee is most consistent with degenerative arthritis. No other definite bony abnormalities are noted. The urinary bladder and faint visualization of both kidneys are noted. WI/WI bone scan whole body IMPRESSION: Compared to most recent prior whole-body bone scan dated 07/16/2023: * Interval normalization of previously documented focal increased tracer avidity involving anterior costochondral junction of 2 consecutive left fourth and fifth ribs, most consistent with healed fractures. * Interval development of a moderately intense solitary focal increased tracer avidity is noted at anterior costochondral junction of the left sixth rib, likely also represent posttraumatic change. Radiographic correlation is recommended. * Interval development of focal increased tracer avidity at medial end of the right knee most consistent with posttraumatic and/or degenerative changes. * No other significant interval change since the prior study.
[2024-02-22 18:23] LABS: Testosterone, Total 23 ng/dL (250-1100)
== END ==
LOC: HO.NUCMED 09:35
PROVIDERS: PCP Family Medicine; Visit Provider Urology
DX: Z12.5 Encounter for screening for malignant neoplasm of prostate (principal); C61 Malignant neoplasm of prostate; C79.51 Secondary malignant neoplasm of bone
CPT/HCPCS: 36415; 78306; 84153; 84403; A9503

== ENCOUNTER 2024-03-07 10:03 | Outpatient (REF) | payer OTHER, SELFPAY ==
[2024-03-07 16:32] LABS: Urine Cytology See Pathology rpt
== END 2024-03-07 10:04 | disposition home or self-care (01) ==
LOC: HO.LAB 10:03
PROVIDERS: PCP Family Medicine; Visit Provider Urology
DX: C67.1 Malignant neoplasm of dome of bladder (principal)
CPT/HCPCS: 52000; 81003; 88112; 96372; 99212; J0897

== ENCOUNTER 2024-03-07 10:03 | Outpatient (AMB) | payer OTHER, SELFPAY ==
--- NOTE | 2024-03-07 10:07 | A.OFFVIS_ITS ---
Intake Visit Reasons: Cysto/Imaging/labs/Prolia(set) Intake Note: Patient is Present for Cystoscopy with Prolia Injection Urology Med: None Antibiotic Allergy:None Blood Thinner: None URO- G Disposable Cystoscope lot:[id number] exp:11/15/26 Allergies oxycodone [Percocet] Adverse Reaction (Intermediate, Verified 03/07/24 10:12) face got really red HPI Comments Details: Kody is a very pleasant male. He is a patient of Dr. Acosta. 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 None of these abnormalities is strongly suspicious for metastatic disease Remains on GnRH as single therapy 07/07 CT with question of residual prostate activity - may benefit from PSMA scan 05/06 - PSA 0.5 T<1 PSA low Prolia and GnRH agonist today Three month follow-up labs with bone scan Has been on combined therapy for 3 years Prostate cancer 12/30 initial treatment XRT with rising PSA and a bone scan lesion 01/04 PSA 0.4 T <1 - continue oral antiandrogen. Bone scan normal. Abdominal CT scan normal. 10/05 Abiraterone 2 tab daily - GnRH administered 05/05 abiraterone 2 tabs daily since seizure 04/05 GnRH with abiraterone - reduced to 3 tabs daily Prostate cancer metastatic Biopsy 12/30 - multicore Ty 8, PSA 96 Initial treatment EXBRT 11/03 Metastatic treatment combination GnRH injections with oral antiantigen PSA 09/03 0.2, 03/04 PSA 0.23, 07/05 0.2 T 9, 01/03 P 0.4 T 122, 04/05 0.3, 07/06 0.3, 10/05 0.6 T 3, 04/06 0.5 T <1 Imaging 11/03 bone scan with evidence of metastatic disease to the ribs and iliac crest - 11/[address] no evidence of bony metastases - 03/04 bone scan shows improvement, density shows osteopenia - 12/06 Bone Scan with improvement on iliac crest - 06/05 Bone Density - osteopenia - on calcium supplementation - 07/06 bone scan with minimal evidence of bony metastases Bladder cancer recurrent low-grade 12/2020, 06/05, 05/06 Initial diagnosis July 2018 low-grade superficial Cystoscopy Aug 2020 small superficial recurrence, 04/04 NAD, 08/04 NAD, 09/06 Cytology 04/05 NAD, 09/06 NAD Intervention - December 2020 TURBT 2 cm with satellite lesions, 06/05 multiple small lesions removed (small preperitoneal bladder perf) - 04/06 urinary papilloma Pathology - December 2020 low-grade bladder cancer, 06/05 low-grade superficial - 04/06 Inflammatory Adjuvant therapy - January 2021 6 week gemcitabine induction, 08/04 3 weeks gemcitabine 06/05 6 week reinduction gemcitabine PFSH Medical History Pulmonary emboli Hx of migraines CKD (chronic kidney disease), stage III Dizziness Malignant tumor of prostate (05/16/21) Hyperlipidemia (05/16/21) Essential hypertension (05/16/21) Complex partial seizure disorder Seizure disorder Tremor Cerebral microvascular disease Bone cancer Bladder cancer Bladder tumor Prostate CA Hematuria Elevated cholesterol HTN (hypertension) Surgical History Hx of colonoscopy History of cystoscopy H/O prostate biopsy Social History Household Members: Spouse Housing: House Are you a primary clinical care leader to a significant other at home: No Do you presently have visiting nurse or other home services: No Alcohol intake: never Comment: no count Patient Tobacco Use Status: Never used Tobacco Second Hand Smoke Exposure: No Advance Directives Date on File: 05/22/22 service: No Current occupational status: retired Review of Systems Const Denies chills and Denies fever(s) Card Reports no additional complaints and Denies syncope Resp Denies cough GI Denies abdominal pain and Denies heartburn Reports as per HPI and Denies change in libido Neuro Denies syncope Psych Denies change in libido Endo Denies change in libido Physical Exam Const General: cooperative, healthy appearing, comfortable and no acute distress Orientation/consciousness: patient oriented x3 HEENT Face and sinus: Yes normal facial exam Mouth: moist mucous membranes Neck Neck: Yes normal visual inspection, Yes full ROM and Yes trachea midline Chest Chest palpation & inspection: normal inspection of the chest Resp Effort & Inspection: normal respiratory effort, able to speak in complete sentences and no respiratory distress GI Inspection: Yes normal to inspection Back/Spine/Pelvis Cervical Spine: normal cervical lordosis Thoracic/Lumbar Spine: thoracic and lumbar spine normal to inspection Skin General skin exam: no rashes or lesions noted Neuro General: patient oriented x3, gait normal, tone normal and moves all extremities Extrem General: Yes normal to inspection and Yes capillary refill normal Office Procedures Cystoscopy Consent Discussed risk and benefit or proposed procedure with the patient. Information consent for procedure given to the patient. Discussed technical aspects, risks, benefits and alternatives in full. Addressed all of the patient's questions and concerns regarding the procedure. The patient demonstrated knowledge and understanding. They wish to proceed with this procedure. Preparation The patient was prepped in the usual manner. A transporter radiology was present and in the room. Genitalia was prepped with betadine solution in a sterile manner. Lidocaine Jelly 2% was placed into the urethra and 16Fr flexible Olympus cysto scope was inserted into the meatus after adequate lubrication. Procedure Cystoscopy performed using a disposable Urovue digital 16 Cymro cystoscope. Meatus circumcised Urethra anterior and posterior urethra normal Prostatic Urethra unremarkable Bladder examination with retroflexion of cystoscope Bladder Orifices normal shape and position Bladder Capacity medium Trabeculations - Cellule Formation - Diverticulum Formation - Mucosal Erythema - Bladder Tumor - [id number] DISPOSABLE SCOPE URO-G FLEXIBLE SCOPE Procedure code (CPT) selection complete Office Meds lidocaine HCl 2 % mucosal jelly in applicator Performing Provider: Dom Maier MD Performing Location: [facility] Administered by: Ce Tan RN on 03/07/24 10:18 Dose Route Admin Location Dispensed Lot Number Expiration Date [facility] Kn[employer] Mender 10 mL intra-urethral 10 mL nitrofurantoin monohydrate/macrocrystals 100 mg capsule Performing Provider: Dom Maier MD Performing Location: [facility] Administered by: Ce Tan RN on 03/07/24 10:18 Dose Route Admin Location Dispensed Lot Number Expiration Date [place] [employer] Mender 100 mg PO 1 cap naproxen 500 mg tablet Performing Provider: Dom Maier MD [facility] Administered by: Ce Tan RN on 03/07/24 10:18 Dose Route Admin Location Dispensed Lot Number Expiration Date NDC Kn[employer] Mender 500 mg PO 1 tab Prolia 60 mg/mL subcutaneous syringe Performing Provider: Dom Maier MD Performing Location: [facility] Administered by: Ce Tan RN on 03/07/24 10:18 Dose Route Admin Location Dispensed Lot Number Expiration Date ND [employer] Mender 60 mg subcut left arm 1 mL [id number] 03/14/26 29155-716-12 AMGEN Results AMB Urinalysis, Automated UA Leukoctes 0 Jeff/uL Last Edit by Sherry Ludwig [facility] on 03/07/24 10:22 UA Nitrite Negative Last Edit by Sherry Ludwig [facility] on 03/07/24 10:22 UA Urobilinogen 0.2 mg/dL Last Edit by Sherry Ludwig [facility] on 03/07/24 10:2 2 UA Protein 0 mg/dL Last Edit by Sherry Ludwig [facility] on 03/07/24 10:22 UA pH 5.0 Last Edit by Sherry Ludwig [facility] on 03/07/24 10:22 UA Blood 10 Phi/uL Last Edit by Sherry Ludwig [facility] on 03/07/24 10:22 UA Specific [place] 1.015 Last Edit by Sherry Ludwig [facility] on 03/07/24 10: 22 UA Ketone Negative Last Edit by Sherry Ludwig [facility] on 03/07/24 10:22 UA Bilirubin 0 mg/dL Last Edit by Sherry Ludwig [facility] on 03/07/24 10:22 UA Glucose 0 mg/dL Last Edit by Sherry Ludwig [facility] on 03/07/24 10:22 Assessment & Plan Assessment & Plan (1) Overactive bladder: Code(s): N32.81 - Overactive bladder Category: Medical Plan Trial tolterodine Three month follow-up lab work Orders: Orders AMB Urinalysis Automated Today Z13.9 - Encounter for screening, unspecified AMB Cystoscopy Today C67.1 - Malignant neoplasm of dome of bladder Testosterone, Total 3 Months C61 - Malignant neoplasm of prostate, C79.51 - Secondary malignant neoplasm of bone AMB Denosumab Injection Practice Supplied Today C61 - Malignant neoplasm of prostate, C79.51 - Secondary malignant neoplasm of bone, M85.80 - Other specifie d disorders of bone density and structure, unspecified site Urine Cytology Today C67.1 - Malignant neoplasm of dome of bladder Prostate Specific Antigen 3 Months C61 - Malignant neoplasm of prostate, C79.51 - Secondary malignant neoplasm of bone Medications: New tolterodine ER 2 mg PO DAILY 30 days 30 caps 1RF C61 - Malignant neoplasm of prostate, C79.51 - Secondary malignant neoplasm of bone, R39.15 - Urgency of urination Patient Instructions: Imaging studies, laboratory and physical exam results were discussed and reviewed in detail. No major barriers to patient understanding were identified. An opportunity to ask questions regarding the treatment plan was provided. All questions were answered. The patient expressed understanding and agreement with the above treatment plan. The patient is aware they should contact our office by phone for worsening of their current condition or the appearance of new urologic symptoms. Compliance is encouraged with any medications and followup testing that is ordered. It is a privilege to participate in the urologic care of your patient. If you have any questions or concerns regarding treatment for the above conditions, or other urologic issues, please do not hesitate to contact me. The office telephone contact is [phone]. This note is constructed using voice recognition software. While every effort has been made to ensure accuracy gaming department head errors may have been included. Yours sincerely, Dr Dom Maier MD, [facility] - Urology Providers of Expert, Compassionate Care for the Genitourinary System Coding Level of Care Code Est Pt Level 4 (85779) Complex EM visit Add On G2211 Diagnoses Overactive bladder N32.81 CPT Codes Cystoscopy - CPT: 34628-[id number] ([id number])
== END 2024-03-07 10:47 | disposition home or self-care (01) ==
PROVIDERS: PCP Family Medicine; Visit Provider Urology
DX: C61 Malignant neoplasm of prostate (principal); C79.51 Secondary malignant neoplasm of bone; C67.1 Malignant neoplasm of dome of bladder; N32.81 Overactive bladder; M85.80 Other specified disorders of bone density and structure, unspecified site
CPT/HCPCS: 52000; 99214

== ENCOUNTER 2024-05-20 08:10 | Outpatient (REF) | payer OTHER, SELFPAY ==
--- NOTE | ~2024-05-20 | MM_ITS ---
EXAMINATION: BONE DENSITOMETRY CLINICAL INDICATION: Malignant neoplasm of prostate. COMPARISON: Previous BD dated 05/17/2022 and baseline BD dated 03/02/2021. TECHNIQUE: Using a [employer] DXA System (software version: 13.1) manufactured by [employer] dual-energy x-ray absorptiometry was performed of the lumbar spine and left hip. The images are of good technical quality. Summary results are attached. FINDINGS: LEFT FEMUR, NECK: Current: BMD 0.758 g/cm2, Z-score -1.6, T-score -2.4, osteopenia. Prior: BMD 0.769 g/cm2. Baseline: BMD 0.810 g/cm2. LEFT FEMUR, TOTAL: Current: BMD 0.862 g/cm2, Z-score -1.3, T-score -1.7, osteopenia, 2.7% increase from previous, 7.7% decrease from baseline (<5% change is not significant). Prior: BMD 0.839 g/cm2. Baseline: BMD 0.934 g/cm2. AP SPINE L1-L4: Current: BMD 1.354 g/cm2, Z-score 0.9, T-score 1.1, normal, 1.5% decrease from previous, 5.4% decrease from baseline (<5% change is not significant). Prior: BMD 1.375 g/cm2. Baseline: BMD 1.431 g/cm2. IDENTIFIED RISK FACTORS: Low calcium intake, family history (parent hip fracture). HISTORY OF FRACTURE: None listed. MEDICATIONS: Vitamin D. MM/XR DEXA axial skeleton IMPRESSION: 1. DIAGNOSIS: Osteopenia based on the lowest T-score value of -2.4 in the femoral neck applying World Health Organization criteria. 2. 10-YEAR FRACTURE RISK PREDICTION, FRAX: Major osteoporotic fracture (clinical spine, forearm, hip or shoulder) 15.1%. Hip fracture 7.4%. 3. Treatment Recommendations: NOF guidelines recommend consideration for treatment in postmenopausal women and men age 50 and older presenting with the following: -A hip or vertebral (clinical or morphometric) fracture. -T-score less than or equal to -2.5 at the femoral neck or spine after appropriate evaluation to exclude secondary causes. -Low bone mass at the hip or spine and a 10-year fracture probability by FRAX of greater than or equal to 3% for hip fracture or greater than or equal to 20% for major osteoporotic fracture based on the [place] adapted WHO algorithm. 4. Other Recommendations: All treatment decisions require clinical judgment and consideration of individual patient factors, including patient preferences, comorbidities, previous drug use, risk factors not captured in the FRAX model (e.g. frailty, falls, vitamin D deficiency, increased bone turnover, interval significant decline in bone density) and possible under or overestimation of fracture risk by FRAX. Additional medical evaluation for secondary cause of low bone mineral density may be appropriate. FUTURE SCAN RECOMMENDATION: People with diagnosed cases of osteoporosis or at high risk for fracture should have regular bone mineral density tests. For patients eligible for Medicare, routine testing is allowed once every 2 years. The testing frequency can be increased to one year for patients who have rapidly progressing disease, those who are receiving or discontinuing medical therapy to restore bone mass, or have additional risk factors.
== END 2024-05-20 08:11 | disposition home or self-care (01) ==
LOC: HO.MAMMO 08:10
PROVIDERS: PCP Family Medicine; Visit Provider Urology
DX: Z13.820 Encounter for screening for osteoporosis (principal); C61 Malignant neoplasm of prostate; C79.51 Secondary malignant neoplasm of bone; M85.852 Other specified disorders of bone density and structure, left thigh
CPT/HCPCS: 77080

== ENCOUNTER 2024-06-03 09:07 | Outpatient (REF) | payer OTHER, SELFPAY ==
[2024-06-03 11:24] LABS: Prostate Specific Antigen 14.36 ng/mL (<0.05-4.0)
[2024-06-09 13:08] LABS: Testosterone, Total 75 ng/dL (250-1100)
== END 2024-06-03 09:08 | disposition home or self-care (01) ==
LOC: HO.LAB 09:07
PROVIDERS: PCP Family Medicine; Visit Provider Urology
DX: Z12.5 Encounter for screening for malignant neoplasm of prostate (principal); C61 Malignant neoplasm of prostate; C79.51 Secondary malignant neoplasm of bone
CPT/HCPCS: 36415; 84153; 84403

== ENCOUNTER 2024-06-12 13:22 | Outpatient (AMB) | payer OTHER, SELFPAY ==
--- NOTE | 2024-06-12 13:23 | MHC.OFFVIS ---
Intake Visit Reasons: PSA/Testosterone/Med Review(set) Intake Note: Patient is Present for Telephone Follow Up Labs Urology Med: Tolterodine, Tamsulosin Antibiotic Allergy:none Blood Thinner:None Senior Mainframe Programmer Analyst Required: No Allergies oxycodone [Percocet] Adverse Reaction (Intermediate, Verified 03/07/24 10:12) face got really red HPI Comments Details: Kody is a very pleasant male. He is a patient of Dr. Acosta. 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 Last GnRH 05/06 Restart GnRH Plan cysto next office with labs 06/07 PSA 14 T 75 DEXA scan osteopenia 03/07 PSA 1.9 T 23 Prolia injection Bone Scan - no evidence of active metastatic disease Cystoscopy normal - Trial of OAB medication tolterodine 12/08 PSA 0.86 T <3 08/06 - PSA 0.65 T low Bone Scan - A few additional Mild nonspecific abnormalities are noted as described above and these are all likely arthritic or traumatic in etiology. None of these abnormalities is strongly suspicious for metastatic disease Remains on GnRH as single therapy 07/07 CT with question of residual prostate activity - may benefit from PSMA scan 05/06 - PSA 0.5 T<1 PSA low Prolia and GnRH agonist today Three month follow-up labs with bone scan Has been on combined therapy for 3 years Prostate cancer 12/30 initial treatment XRT with rising PSA and a bone scan lesion 01/04 PSA 0.4 T <1 - continue oral antiandrogen. Bone scan normal. Abdominal CT scan normal. 10/05 Abiraterone 2 tab daily - GnRH administered 05/05 abiraterone 2 tabs daily since seizure 04/05 GnRH with abiraterone - reduced to 3 tabs daily Prostate cancer metastatic Biopsy 12/30 - multicore [place] 8, PSA 96 Initial treatment EXBRT 11/03 Metastatic treatment combination GnRH injections with oral antiantigen PSA 09/03 0.2, 03/04 PSA 0.23, 07/05 0.2 T 9, 01/03 P 0.4 T 122, 04/05 0.3, 07/06 0.3, 10/05 0.6 T 3, 04/06 0.5 T <1 Imaging 11/03 bone scan with evidence of metastatic disease to the ribs and iliac crest - 11/[address] no evidence of bony metastases - 03/04 bone scan shows improvement, density shows osteopenia - 12/06 Bone Scan with improvement on iliac crest - 06/05 Bone Density - osteopenia - on calcium supplementation - 07/06 bone scan with minimal evidence of bony metastases Bladder cancer recurrent low-grade 12/2020, 06/05, 05/06 Initial diagnosis July 2018 low-grade superficial Cystoscopy Aug 2020 small superficial recurrence, 04/04 NAD, 08/04 NAD, 09/06 Cytology 04/05 NAD, 09/06 NAD Intervention - December 2020 TURBT 2 cm with satellite lesions, 06/05 multiple small lesions removed (small preperitoneal bladder perf) - 04/06 urinary papilloma Pathology - December 2020 low-grade bladder cancer, 06/05 low-grade superficial - 04/06 Inflammatory Adjuvant therapy - January 2021 6 week gemcitabine induction, 08/04 3 weeks gemcitabine 06/05 6 week reinduction gemcitabine PFSH Medical History Pulmonary emboli Hx of migraines CKD (chronic kidney disease), stage III Dizziness Malignant tumor of prostate (05/16/21) Hyperlipidemia (05/16/21) Essential hypertension (05/16/21) Complex partial seizure disorder Seizure disorder Tremor Cerebral microvascular disease Bone cancer Bladder cancer Bladder tumor Prostate CA Hematuria Elevated cholesterol HTN (hypertension) Surgical History Hx of colonoscopy History of cystoscopy H/O prostate biopsy Social History Household Members: Spouse Housing: House Are you a primary care team coordinator scheduler to a significant other at home: No Do you presently have visiting nurse or other home services: No Alcohol intake: never Comment: no count Patient Tobacco Use Status: Never used Tobacco Second Hand Smoke Exposure: No Advance Directives Date on File: 05/22/22 service: No Current occupational status: retired Review of Systems Const All systems reviewed & are unremarkable except as noted in HPI and below Denies chills and Denies fever(s) Card Reports no additional complaints and Denies syncope Resp Denies cough GI Denies abdominal pain and Denies heartburn Reports as per HPI and Denies change in libido Musc Reports no additional complaints Neuro Denies syncope Psych Denies change in libido Endo Denies change in libido Physical Exam Telemedicine evaluation Appropriate responses Regular breathing rate and rhythm HEENT Head: Yes normal to inspection Ears: hearing grossly normal bilaterally Eyes General: appearance normal, both eyes and all related structures Neck Neck: Yes normal visual inspection Chest Chest palpation & inspection: normal inspection of the chest Resp Effort & Inspection: normal respiratory effort and able to speak in complete sentences Telehealth Telehealth Telehealth Platform: avox Location of provider rendering services: practice address Location of patient: address on file Patient Identification confirmed using: Name, : Yes Telehealth method: video Patient verbally consented to treatment: Yes Patient verbally consented to billing insurance company: Yes Patient informed of any privacy concerns related to visit: Yes Minutes spent on Phone/Video with Pt.: 15 Assessment & Plan Assessment & Plan (1) Prostate cancer metastatic to bone: Code(s): C61 - Malignant neoplasm of prostate; C79.51 - Secondary malignant neoplasm of bone Category: Medical (2) Bladder cancer: Comment: Recurrent low-grade multifocal - 06/05 Code(s): C67.9 - Malignant neoplasm of bladder, unspecified Category: Medical Qualifiers: Bladder location: dome Qualified Code(s): C67.1 - Malignant neoplasm of dome of bladder Plan Three month follow-up labs Restart GnRH Orders: Orders Prostate Specific Antigen 3 Months C61 - Malignant neoplasm of prostate, C79.51 - Secondary malignant neoplasm of bone Testosterone, Total 3 Months C61 - Malignant neoplasm of prostate, C79.51 - Secondary malignant neoplasm of bone Patient Instructions: Imaging studies, laboratory and physical exam results were discussed and reviewed in detail. No major barriers to patient understanding were identified. An opportunity to ask questions regarding the treatment plan was provided. All questions were answered. The patient expressed understanding and agreement with the above treatment plan. The patient is aware they should contact our office by phone for worsening of their current condition or the appearance of new urologic symptoms. Compliance is encouraged with any medications and followup testing that is ordered. It is a privilege to participate in the urologic care of your patient. If you have any questions or concerns regarding treatment for the above conditions, or other urologic issues, please do not hesitate to contact me. The office telephone contact is [phone]. This note is constructed using voice recognition software. While every effort has been made to ensure accuracy excavator backhoe operator errors may have been included. Yours sincerely, Dr Dom Maier MD, [facility] - Urology Providers of Expert, Compassionate Care for the Genitourinary System Coding Level of Care Code Tele Est Pt Level 4 (89787) Complex EM visit Add On G2211 Diagnoses Prostate cancer metastatic to bone C61; C79.51 Malignant neoplasm of dome of urinary bladder C67.1 Bladder location: dome
== END 2024-06-12 13:58 | disposition home or self-care (01) ==
LOC: HO.HUSH 13:22
PROVIDERS: PCP Family Medicine; Visit Provider Urology
DX: C61 Malignant neoplasm of prostate (principal); C79.51 Secondary malignant neoplasm of bone; C67.1 Malignant neoplasm of dome of bladder
CPT/HCPCS: 99214; G2211

== ENCOUNTER → 2024-06-12 13:22 | Outpatient (BNVA) | payer OTHER, SELFPAY | PROVIDERS: PCP Family Medicine; Visit Provider Urology ==

== ENCOUNTER 2024-06-25 11:33 | Outpatient (AMB) | payer OTHER, SELFPAY ==
--- NOTE | 2024-06-25 11:36 | AM.OFFVISNUR ---
Intake Visit Reasons: GnRH Allergies oxycodone [Percocet] Adverse Reaction (Intermediate, Verified 03/07/24 10:12) face got really red Office Meds Eligard (6 month) 45 mg (6 month) subcutaneous syringe Performing Provider: Dom Maier MD Performing Location[facility] [place] [facility] Administered by: Prateek Warren LPN on 06/25/24 11:36 Dose Route Admin Location Dispensed Lot Number Expiration Date [facility] Video Games Storywriter 45 mg subcut left arm 45 mg [id number] 10/15/25 70665-886-65 [email or web address]. Assessment & Plan Assessment & Plan Orders: Orders AMB Leuprolide Injection - Practice Supplied Today C61 - Malignant neoplasm of prostate, C67.1 - Malignant neoplasm of dome of bladder, C79.51 - Secondary malignant neoplasm of bone Medications: New Eligard (6 month) (leuprolide acetate (6 month)) 45 mg subcut ONCE 1 ea 0RF NS C61 - Malignant neoplasm of prostate, C67.1 - Malignant neoplasm of dome of bladder, C79.51 - Secondary malignant neoplasm of bone
== END 2024-06-25 11:59 | disposition home or self-care (01) ==
PROVIDERS: PCP Family Medicine; Visit Provider Urology
DX: C61 Malignant neoplasm of prostate (principal); C79.51 Secondary malignant neoplasm of bone; C67.1 Malignant neoplasm of dome of bladder

== ENCOUNTER → 2024-06-25 11:33 | Outpatient (BNVA) | payer OTHER, SELFPAY | PROVIDERS: PCP Family Medicine; Visit Provider Urology | DX: C61 Malignant neoplasm of prostate (principal); C67.1 Malignant neoplasm of dome of bladder; C79.51 Secondary malignant neoplasm of bone | CPT/HCPCS: 96402; J9217 ==

== ENCOUNTER 2024-08-22 09:04 | Outpatient (REF) | payer OTHER, SELFPAY ==
[2024-08-22 11:52] LABS: Prostate Specific Antigen 2.89 ng/mL (<0.05-4.0)
[2024-08-29 16:23] LABS: Testosterone, Total 4 ng/dL (250-1100)
== END 2024-08-22 09:05 | disposition home or self-care (01) ==
LOC: HO.LAB 09:04
PROVIDERS: PCP Family Medicine; Visit Provider Urology
DX: C61 Malignant neoplasm of prostate (principal); C79.51 Secondary malignant neoplasm of bone; Z12.5 Encounter for screening for malignant neoplasm of prostate
CPT/HCPCS: 36415; 84153; 84403

== ENCOUNTER 2024-09-05 09:48 | Outpatient (AMB) | payer OTHER, SELFPAY ==
--- NOTE | 2024-09-05 09:57 | MHC.OFFVIS ---
Intake Visit Reasons: Cystoscopy/labs(Bladder Ca) Intake Note: Patient is present for Cystoscopy/Labs Urology Med: Tolterodine Antibiotic Allergy: None Blood Thinner: None LABS: 08/22/2024 - PSA: 2.89 -Testosterone: 4 Last Urine Cytology: 03/11/2024- Atypical urothelial cells. Uro G-HD Disposable Cystoscope LOT:[id number] EXP:01/23/2027 Unable to provide urine sample Size Mixer Required: No Environmental Communications Specialist: Environmental Communications Specialist Present Accompanied by: Daughter Allergies oxycodone [Percocet] Adverse Reaction (Intermediate, Verified 09/05/24 09:57) face got really red HPI Comments Details: Kody is a very pleasant male. He is a patient of Dr. Acosta. 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 None of these abnormalities is strongly suspicious for metastatic disease Remains on GnRH as single therapy 07/07 CT with question of residual prostate activity - may benefit from PSMA scan 05/06 - PSA 0.5 T<1 PSA low Prolia and GnRH agonist today Three month follow-up labs with bone scan Has been on combined therapy for 3 years Prostate cancer 12/30 initial treatment XRT with rising PSA and a bone scan lesion 01/04 PSA 0.4 T <1 - continue oral antiandrogen. Bone scan normal. Abdominal CT scan normal. 10/05 Abiraterone 2 tab daily - GnRH administered 05/05 abiraterone 2 tabs daily since seizure 04/05 GnRH with abiraterone - reduced to 3 tabs daily Prostate cancer metastatic Biopsy 12/30 - multicore [place] 8, PSA 96 Initial treatment EXBRT 11/03 Metastatic treatment combination GnRH injections with oral antiantigen PSA 09/03 0.2, 03/04 PSA 0.23, 07/05 0.2 T 9, 01/03 P 0.4 T 122, 04/05 0.3, 07/06 0.3, 10/05 0.6 T 3, 04/06 0.5 T <1 Imaging 11/03 bone scan with evidence of metastatic disease to the ribs and iliac crest - 11/[address] no evidence of bony metastases - 03/04 bone scan shows improvement, density shows osteopenia - 12/06 Bone Scan with improvement on iliac crest - 06/05 Bone Density - osteopenia - on calcium supplementation - 07/06 bone scan with minimal evidence of bony metastases Bladder cancer recurrent low-grade 12/2020, 06/05, 05/06 Initial diagnosis July 2018 low-grade superficial Cystoscopy Aug 2020 small superficial recurrence, 04/04 NAD, 08/04 NAD, 09/06 Cytology 04/05 NAD, 09/06 NAD Intervention - December 2020 TURBT 2 cm with satellite lesions, 06/05 multiple small lesions removed (small preperitoneal bladder perf) - 04/06 urinary papilloma Pathology - December 2020 low-grade bladder cancer, 06/05 low-grade superficial - 04/06 Inflammatory Adjuvant therapy - January 2021 6 week gemcitabine induction, 08/04 3 weeks gemcitabine 06/05 6 week reinduction gemcitabine PFSH Medical History Pulmonary emboli Hx of migraines CKD (chronic kidney disease), stage III Dizziness Malignant tumor of prostate (05/16/21) Hyperlipidemia (05/16/21) Essential hypertension (05/16/21) Complex partial seizure disorder Seizure disorder Tremor Cerebral microvascular disease Bone cancer Bladder cancer Bladder tumor Prostate CA Hematuria Elevated cholesterol HTN (hypertension) Surgical History Hx of colonoscopy History of cystoscopy H/O prostate biopsy Social History Household Members: Spouse Housing: House Are you a primary care aide to a significant other at home: No Do you presently have visiting nurse or other home services: No Alcohol intake: never Comment: no count Patient Tobacco Use Status: Never used Tobacco Second Hand Smoke Exposure: No Advance Directives Date on File: 05/22/22 service: No Current occupational status: retired Review of Systems Const Denies chills and Denies fever(s) Card Reports no additional complaints and Denies syncope Resp Denies cough GI Denies abdominal pain and Denies heartburn Reports as per HPI and Denies change in libido Neuro Denies syncope Psych Denies change in libido Endo Denies change in libido Physical Exam Const General: cooperative, healthy appearing, comfortable and no acute distress Orientation/consciousness: patient oriented x3 HEENT Face and sinus: Yes normal facial exam Mouth: moist mucous membranes Neck Neck: Yes normal visual inspection, Yes full ROM and Yes trachea midline Chest Chest palpation & inspection: normal inspection of the chest Resp Effort & Inspection: normal respiratory effort, able to speak in complete sentences and no respiratory distress GI Inspection: Yes normal to inspection Back/Spine/Pelvis Cervical Spine: normal cervical lordosis Thoracic/Lumbar Spine: thoracic and lumbar spine normal to inspection Skin General skin exam: no rashes or lesions noted Neuro General: patient oriented x3, gait normal, tone normal and moves all extremities Extrem General: Yes normal to inspection and Yes capillary refill normal Office Procedures Cystoscopy Consent Discussed risk and benefit or proposed procedure with the patient. Information consent for procedure given to the patient. Discussed technical aspects, risks, benefits and alternatives in full. Addressed all of the patient's questions and concerns regarding the procedure. The patient demonstrated knowledge and understanding. They wish to proceed with this procedure. Preparation The patient was prepped in the usual manner. A client relationship executive was present and in the room. Genitalia was prepped with betadine solution in a sterile manner. Lidocaine Jelly 2% was placed into the urethra and 16Fr flexible Olympus cystoscope was inserted into the meatus after adequate lubrication. Procedure Cystoscopy performed using a disposable Urovue digital 16 [place] cystoscope. Meatus circumcised Urethra anterior and posterior urethra normal Prostatic Urethra unremarkable prior radiation Bladder examination with retroflexion of cystoscope Bladder Orifices normal shape and position Bladder Capacity median Trabeculations grade 2 Cellule Formation - Diverticulum Formation - Mucosal Erythema - Bladder Tumor - DISPOSABLE SCOPE URO-G FLEXIBLE SCOPE Procedure code (CPT) selection complete Office Meds lidocaine HCl 2 % mucosal jelly in applicator Performing Provider: Dom Maier MD Performing Location: [facility] [place] [facility] Administered by: CORKY Xavier on 09/05/24 10:26 Dose Route Admin Location Dispensed Lot Number Expiration Date [employer]DC Industrial Green Systems Designer 10 mL intra-urethral 10 mL nitrofurantoin monohydrate/macrocrystals 100 mg capsule Performing Provider: Dom Maier MD Performing Location: [facility] [place] [facility] Administered by: CORKY Xavier on 09/05/24 10:26 Dose Route Admin Location Dispensed Lot Number Expiration Date NDC Industrial Green Systems Designer 100 mg PO 1 cap naproxen 500 mg tablet Performing Provider: Dom Maier MD Performing Location: [facility] [place] [facility] Administered by: CORKY Xavier on 09/05/24 10:26 Dose Route Admin Location Dispensed Lot Number Expiration Date NDC Industrial Green Systems Designer 500 mg PO 1 tab Assessment & Plan Assessment & Plan (1) Bladder cancer: Comment: Recurrent low-grade multifocal - 06/05 Code(s): C67.9 - Malignant neoplasm of bladder, unspecified Category: Medical Qualifiers: Bladder location: dome Qualified Code(s): C67.1 - Malignant neoplasm of dome of bladder (2) Prostate cancer metastatic to bone: Code(s): C61 - Malignant neoplasm of prostate; C79.51 - Secondary malignant neoplasm of bone Category: Medical Plan Follow-up December with cystoscopy, GNRH, lab work Orders: Orders AMB Urinalysis Automated Today Z13.9 - Encounter for screening, unspecified AMB Cystoscopy Today C67.1 - Malignant neoplasm of dome of bladder Patient Instructions: Imaging studies, laboratory and physical exam results were discussed and reviewed in detail. No major barriers to patient understanding were identified. An opportunity to ask questions regarding the treatment plan was provided. All questions were answered. The patient expressed understanding and agreement with the above treatment plan. The patient is aware they should contact our office by phone for worsening of their current condition or the appearance of new urologic symptoms. Compliance is encouraged with any medications and followup testing that is ordered. It is a privilege to participate in the urologic care of your patient. If you have any questions or concerns regarding treatment for the above conditions, or other urologic issues, please do not hesitate to contact me. The office telephone contact is [phone]. This note is constructed using voice recognition software. While every effort has been made to ensure accuracy furrier designer errors may have been included. Yours sincerely, Dr Dom Maier MD, [facility] - Urology Providers of Expert, Compassionate Care for the Genitourinary System Coding Level of Care Code Est Pt Level 3 (26077) Diagnoses Malignant neoplasm of dome of urinary bladder C67.1 Bladder location: dome Prostate cancer metastatic to bone C61; C79.51
== END 2024-09-05 11:28 | disposition home or self-care (01) ==
PROVIDERS: PCP Family Medicine; Visit Provider Urology
DX: C67.1 Malignant neoplasm of dome of bladder (principal); C61 Malignant neoplasm of prostate; C79.51 Secondary malignant neoplasm of bone
CPT/HCPCS: 99213

== ENCOUNTER 2024-09-05 09:48 | Outpatient (REF) | payer OTHER, SELFPAY ==
[2024-09-05 16:25] LABS: Urine Cytology See Pathology rpt
== END 2024-09-05 09:49 | disposition home or self-care (01) ==
LOC: HO.LAB 09:48
PROVIDERS: PCP Family Medicine; Visit Provider Urology
DX: C67.1 Malignant neoplasm of dome of bladder (principal)
CPT/HCPCS: 88112; 99212

== ENCOUNTER 2024-10-22 10:36 | Outpatient (AMB) | payer OTHER, SELFPAY ==
--- NOTE | 2024-10-22 10:38 | AM.OFFVISNUR ---
Intake Visit Reasons: Prolia(PA Set) Allergies oxycodone [Percocet] Adverse Reaction (Intermediate, Verified 09/05/24 09:57) face got really red Office Meds Prolia 60 mg/mL subcutaneous syringe Performing Provider: Dom Maier MD [place] [facility] [facility] [place] [facility] Administered by: Prateek Warren LPN on 10/22/24 10:38 Dose Route Admin Location Dispensed Lot Number Expiration Date [facility] Die Polisher 60 mg subcut left arm 1 mL [id number] 12/12/26 76674-335-61 AMGEN Assessment & Plan Assessment & Plan Orders: Orders AMB Denosumab Injection Practice Supplied Today C61 - Malignant neoplasm of prostate, C79.51 - Secondary malignant neoplasm of bone, M85.80 - Other specified disorders of bone density and structure, unspecified site Medications: New Prolia (denosumab) 60 mg subcut ONCE 1 mL 0RF NS C61 - Malignant neoplasm of prostate, C79.51 - Secondary malignant neoplasm of bone, M85.80 - Other specified disorders of bone density and structure, unspecified site
== END 2024-10-22 10:46 | disposition home or self-care (01) ==
PROVIDERS: PCP Family Medicine; Visit Provider Urology
DX: M85.80 Other specified disorders of bone density and structure, unspecified site (principal); C61 Malignant neoplasm of prostate; C79.51 Secondary malignant neoplasm of bone

== ENCOUNTER → 2024-10-22 10:36 | Outpatient (BNVA) | payer OTHER, SELFPAY | PROVIDERS: PCP Family Medicine; Visit Provider Urology | DX: M85.80 Other specified disorders of bone density and structure, unspecified site (principal); T45.1X5A Adverse effect of antineoplastic and immunosuppressive drugs, initial encounter; C61 Malignant neoplasm of prostate; C79.51 Secondary malignant neoplasm of bone | CPT/HCPCS: 96372; J0897 ==

== ENCOUNTER 2024-12-18 08:40 | Outpatient (REF) | payer OTHER, SELFPAY ==
--- OUTSIDE RECORDS SUMMARY | 2024-12-18 09:13 | XMS_ITS ---
Author Organization [facility] on Address Unknown Allergies, Adverse Reactions, Alerts Substance Reaction Status Noted Date Resolved Date Primidone active 11/26/2023 Percocet active 08/23/2022 oxyCODONE active 08/23/2022 Problems Problem Status Start Date End Date OTHER LOW BACK PAIN (Primary) (M54.59 - ICD-10-CM) ACT PHYLLIS 11/26/2023 MALIGNANT NEOPLASM OF BLADDE R, UNSPECIFIED (Primary) (C67.9 - ICD-10-CM) RESOLVED 08/23/2022 11/26/2023 HISTORY OF FALLING (Z91.81 - ICD-10-CM) ACTIVE 0 11/26/2023 COVID-19 (U07.1 - ICD-10-CM) RESOLVED 08/30/2022 11/26/2023 MUSCLE WEAKNESS (GENERALIZED) (M62.81 - ICD-10-CM) ACT PHYLLIS 11/26/2023 SECONDARY MALIGNANT NEOPLASM OF BONE (C79.51 - ICD-10-CM) RESOLVED 08/23/2022 11/26/2023 MALIGNANT NEOPLASM OF BLADDE R, UNSPECIFIED (C67.9 - ICD-10-CM) ACTIVE 11/26/2023 LOCALIZATION-RELATED (FOCAL) (PARTIAL) SYMPTOMATIC EPILEPSY AND EPILEPTIC SYNDROMES WITH COMPLEX PARTIAL SEIZURES, NOT INTRACTABLE, WITHOUT STATUS EPILEPTICUS (G40.209 - ICD-10-CM) RESOLVED 08/23/2022 11/26/2023 MALIGNANT NEOPLASM OF PROSTATE (C61 - ICD-10-CM) ACTIV E 11/26/2023 HYPERLIPIDEMIA, UNSPECIFIED (E78.5 - ICD-10-CM) RESOLV ED 08/23/2022 11/26/2023 SECONDARY MALIGNANT NEOPLASM OF BONE (C79.51 - ICD-10-CM) ACTIVE 11/26/2023 ESSENTIAL (PRIMARY) HYPERTENSION (I10 - ICD-10-CM) RES OLVED 08/23/2022 11/26/2023 LOCALIZATION-RELATED (FOCAL) (PARTIAL) SYMPTOMATIC EPILEPSY AND EPILEPTIC SYNDROMES WITH COMPLEX PARTIAL SEIZURES, NOT INTRACTABLE, WITHOUT STATUS EPILEPTICUS (G40.209 - ICD-10-CM) ACTIVE 11/26/2023 PERSONAL HISTORY OF TRANSIEN T ISCHEMIC ATTACK (TIA), AND CEREBRAL INFARCTION WITHOUT RESIDUAL DEFICITS (Z86.73 - ICD-10-CM) RESOLVED 08/23/2022 11/26/2023 TREMOR, UNSPECIFIED (R25.1 - ICD-10-CM) ACTIVE 0 11/26/2023 MIGRAINE, UNSPECIFIED, NOT I NTRACTABLE, WITHOUT STATUS MIGRAINOSUS (G43.909 - ICD-10-CM) ACTIVE 11/26/2023 HYPERLIPIDEMIA, UNSPECIFIED (E78.5 - ICD-10-CM) ACTIVE 11/26/2023 UNSPECIFIED INFLAMMATORY SPO NDYLOPATHY, LUMBAR REGION (M46.96 - ICD-10-CM) ACTIVE 11/26/2023 PERSONAL HISTORY OF TRANSIEN T ISCHEMIC ATTACK (TIA), AND CEREBRAL INFARCTION WITHOUT RESIDUAL DEFICITS (Z86.73 - ICD-10-CM) ACTIVE 11/26/2023 ESSENTIAL (PRIMARY) HYPERTENSION (I10 - ICD-10-CM) ACT PHYLLIS 11/26/2023 Encounters Encounter Performer Performer Role Encounter Diagnoses Location Date Discharge - Discharged to home or self care - Private home/apt. with home health services [facility] 08/23/2022 03:30 pm EST - 09/09/2022 03:44 pm EST Discharge - Discharged to home or self care - [facility] - Private home/apt. with home health services [facility] 11/26/2023 11:36 am EST - 12/18/2023 11:05 am EST Immunizations Vaccine Date Influenza 07/20/2023 12:00 am EDT TB 1 Step Mantoux (PPD) 11/28/2023 03:00 am EST Zostavax(Shingles) 02/08/2017 12:00 am EDT Pneumococcal Conjugate Vaccine (PCV13) 0 11/11/2018 12:00 am EST TDAP( Tetanus/Diptheria/Perutssis) 01/06 12:00 am EDT SARS-COV-2 (COVID-19) 03/30/2021 12:00 a m EDT SARS-COV-2 (COVID-19) 03/05/2021 12:00 a m EDT Prevnar 20 Pneumococcal conjugate (PCV20 ) SARS-COV-2 (COVID-19 BOOSTER) 11/27/2023 01:45 pm EST SARS-COV-2 (COVID-19 BOOSTER) 10/09/2021 12:00 am EST RSV, bivalent, protein subunit RSVpreF, diluent rec Social History
--- OUTSIDE RECORDS SUMMARY | 2024-12-18 09:14 | XMS_ITS | Clinical Summary ---
Author Organization [employer] Address [address] [facility] [address] [place] [address] Care Team Providers Care Guest Relations Executive Name Role Phone Unavailable Primary Care Provider Unavailabl e Allergies No known active allergies Medications ibuprofen 600 MG tablet Take 1 tablet (600 mg) by mouth every 6 (six) hours if needed for mild pain for up to 20 doses. 20 tablet 09/01/2024 Active riboflavin (Vitamin B-2) 100 MG tablet Take by mouth. Active Cholecalciferol (D3) 50 MCG (1999) chewable tablet Chew. Acti ve magnesium citrate solution Take by mouth. Active aspirin 81 MG EC tablet Take 81 mg by mouth Once per day. Active FLUoxetine (PROzac) 20 MG capsule Take 20 mg by mouth Once per day. Active amLODIPine (Norvasc) 2.5 MG tablet Take by mouth Once per day. Active Active Problems Problem Noted Date Diagnosed Date Periodontal disease 08/28/2024 Odontalgia 08/28/2024 Fractured dental cheondoism with loss of materi al 08/28/2024 Encounters Date Type Department Care Team Description 09/24/2024 9:30 AM EST Office Visit [facility] ADULT DENTAL [address] [place] [address] Fredis Doe DDS Periodontal disease (Primary Dx); Odontalgia from Last 3 Months Social History Tobacco Use Types Packs/Day Years Used Date Smoking Tobacco: Never Passive Smoke Exposure: Never Smokeless Tobacco: Never Tobacco Cessation:Counseling Given: Not Answered Alcohol Use Standard Drinks/Week Comments Never 0 (1 standard drink = 0.6 oz pur e alcohol) Sex and Gender Information Value Date Recorded Sex Assigned at Male 08/26/2024 8:14 AM EST Legal Sex Male 8:14 AM EST Gender Identity Male 08/26/2024 8:14 AM EST Sexual Orientation Straight 08/26/2024 8: 14 AM EST Last Filed Vital Signs Vital Sign Reading Time Taken Comments Blood Pressure 128/78 09/24/2024 9:26 AM EST Pulse - - Temperature - - Respiratory Rate - - Oxygen Saturation - - Inhaled Oxygen Concentration - - Weight - - Height - - Body Mass Index - - Plan of Treatment Health Maintenance Due Date Last Done Comments CT Colonography 1952 Colonoscopy 1952 Colorectal Cancer Screening 1952 Dental Oral Exam 1952 Dental Prophylaxis 1952 Dental X-Ray: Bitewings 1952 Dental X-Ray: Full Mouth 1952 Depression Screening 1952 FIT DNA/Cologuard 1952 FIT 1952 FOBT 1952 Lipid Panel 1952 SDOH Screening 1952 Sigmoidoscopy 1952 Alcohol/Substance Use Screening 1964 Hepatitis C Screening 1970 Zoster Vaccines (1 of 2) 2002 02/08/2017 RSV Patients and Patients Aged 60 years or older (1 - Risk 60-74 years 1-dose series) 2012 Tobacco Screening 09/24/2025 09/24/2024 DTaP/Tdap/Td Vaccines (4 - Td or Tdap) 08/21/2034 08/21/2024, 01/06/2023, 07/29/2013, Additional history exists Pneumococcal Vaccine: 50+ Years Completed 06/21/2020, 11/11/2018 COVID-19 Vaccine Completed 06/17/2024, , 10/09/2021, Additional history exists Influenza Vaccine Completed 07/01/2024, , 07/05/2022, Additional history exists HIB Vaccines Aged Out No longer eligi ble based on patient's age to complete this topic HPV Vaccines Aged Out No longer eligi ble based on patient's age to complete this topic Hepatitis A Vaccines Aged Out No long er eligible based on patient's age to complete this topic Hepatitis B Vaccines Aged Out No long er eligible based on patient's age to complete this topic IPV Vaccines Aged Out No longer eligi ble based on patient's age to complete this topic Meningococcal Vaccine Aged Out No anna marie mary eligible based on patient's age to complete this topic RSV under 20 months Aged Out No longe r eligible based on patient's age to complete this topic Rotavirus Vaccines Aged Out No longer eligible based on patient's age to complete this topic Procedures Procedure Name Priority Date/Time Associated Diagnosis Comments CASE PRESENTATION, DETAILED AND EXTENSIVE TREATMENT PLANNING Routine 09/24/2024 9:30 AM EST 30 EXTRACTION, ERUPTED TOOTH OR EXPOSED ROOT (ELEVATION/FORCEPS REMOVAL) Routine 09/24/2024 9:30 AM EST from Last 3 Months Insurance [facility]
--- OUTSIDE RECORDS SUMMARY | 2024-12-18 09:14 | XMS_ITS | Encounter Summary ---
Author Organization [employer] Address [address] [facility] [address] [place] [address] Care Team Providers Care Key Cutter Name Role Phone Unavailable Primary Care Provider Unavailabl e Reason for Visit * Reason Onset Date Comments medication 08/29/2024 Encounter Details Date Type Department Care Team ([facility] st Contact Info) Description 08/29/2024 Telephone [facility] ADULT DENTAL [address] [place], [place] [phone] Fredis Doe DDS [address] [place], [place] [phone] medication Social History Tobacco Use Types Packs/Day Years Used Date Smoking Tobacco: Never Passive Smoke Exposure: Never Smokeless Tobacco: Never Alcohol Use Standard Drinks/Week Comments Never 0 (1 standard drink = 0.6 oz pur e alcohol) Sex and Gender Information Value Date Recorded Sex Assigned at Male 08/26/2024 8:14 AM EST Legal Sex Male 8:14 AM EST Gender Identity Male 08/26/2024 8:14 AM EST Sexual Orientation Straight 08/26/2024 8: 14 AM EST documented as of this encounter Miscellaneous Notes * Telephone Encounter - Sheridan Barbour - 09/01/2024 10:08 AM EST Message for Dr. Doe Calling in again waiting for medication to be sent to pharmacy from appt on 08/29. [facility] * Telephone Encounter - Sheridan Barbour - 08/29/2024 11:36 AM EST Message for Dr. Doe Patient called in reporting that medication antibiotic was not sent to pharmacy for patient yesterday. 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
--- OUTSIDE RECORDS SUMMARY | 2024-12-18 09:14 | XMS_ITS ---
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, UNSPECIFIED (C41.9 - ICD-10-CM) ACTIVE 05/15/2021 HEMATURIA, UNSPECIFIED (R31.9 - ICD-10-CM) ACTIVE 05/15/2021 MALIGNANT NEOPLASM OF BLADDE R, UNSPECIFIED (C67.9 - ICD-10-CM) ACTIVE 05/15/2021 HEADACHE, UNSPECIFIED (R51.9 - ICD-10-CM) ACTIVE 05/15/2021 PURE HYPERCHOLESTEROLEMIA, U NSPECIFIED (E78.00 - ICD-10-CM) ACTIVE 05/15/2021 ESSENTIAL (PRIMARY) HYPERTENSION (I10 - ICD-10-CM) ACT PHYLLIS 05/15/2021 MUSCLE WASTING AND ATROPHY, NOT ELSEWHERE CLASSIFIED, LEFT LOWER LEG (M62.562 - ICD-10-CM) ACTIVE 05/14/2021 DIFFICULTY IN WALKING, NOT E LSEWHERE CLASSIFIED (R26.2 - ICD-10-CM) ACTIVE 05/14/2021 Encounters Encounter Performer Performer Role Encounter Diagnoses Location Date Discharge - Discharged to home or self care - Home - [facility] 1 06:40 pm EDT - 1 12:13 pm EDT Immunizations Vaccine Date Influenza 06/28/2020 12:00 am EDT TB 2 Step Mantoux Skin Test PPSV23 (Previous Pneumococcal Polysaccha ride)Vaccine 06/21/2020 12:00 am EDT SARS-COV-2 (COVID-19) 04/02/2021 12:00 a m EDT SARS-COV-2 (COVID-19) 03/05/2021 12:00 a m EDT Social History
[2024-12-18 11:20] LABS: Prostate Specific Antigen 2.46 ng/mL (<0.05-4.0)
[2024-12-23 02:03] LABS: Testosterone, Total 5 ng/dL (250-1100)
== END 2024-12-18 08:41 | disposition home or self-care (01) ==
LOC: HO.LAB 08:40
PROVIDERS: PCP Family Medicine; Visit Provider Urology
DX: C61 Malignant neoplasm of prostate (principal); C79.51 Secondary malignant neoplasm of bone; Z12.5 Encounter for screening for malignant neoplasm of prostate
CPT/HCPCS: 36415; 84153; 84403

== ENCOUNTER 2025-01-01 08:55 | Outpatient (AMB) | payer OTHER, SELFPAY ==
--- NOTE | 2025-01-01 09:01 | MHC.OFFVIS ---
Intake Visit Reasons: cysto/GNRH/labs(PA Set) Intake Note: Pt presents to the office today for a cystoscopy/GnRH/labs Cystoscope: Lot:[id number] Exp:02/20/27 Allergies oxycodone [Percocet] Adverse Reaction (Intermediate, Verified 01/01/25 09:01) face got really red HPI Comments Details: Kody is a very pleasant male. He is a patient of Dr. Acosta. 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 - bladder instability Small superficial lesions seen on cystoscopy May defer therapy Three-month follow-up PET-CT for prostate cancer restaging whilst on therapy 01/06 2.4 T 5, GNRH, cystoscopy - small superficial lesion 09/07 PSA 2.9 T 4 - Cysto - negative 07/08 GnRH (plan for 3 injections) 06/07 PSA 14 T 75 - DEXA scan osteopenia 03/07 PSA 1.9 T 23 Prolia injection - Bone Scan - no evidence of active metastatic disease Cystoscopy normal - Trial of OAB medication tolterodine 12/08 PSA 0.86 T <3 08/06 - PSA 0.65 T low Bone Scan - A few additional Mild nonspecific abnormalities are noted as described above and these are all likely arthritic or traumatic in etiology. None of these abnormalities is strongly suspicious for metastatic disease Remains on GnRH as single therapy 07/07 CT with question of residual prostate activity - may benefit from PSMA scan 05/06 - PSA 0.5 T<1 PSA low Prolia and GnRH agonist today Three month follow-up labs with bone scan Has been on combined therapy for 3 years Prostate cancer 12/30 initial treatment XRT with rising PSA and a bone scan lesion 01/04 PSA 0.4 T <1 - continue oral antiandrogen. Bone scan normal. Abdominal CT scan normal. 10/05 Abiraterone 2 tab daily - GnRH administered 05/05 abiraterone 2 tabs daily since seizure 04/05 GnRH with abiraterone - reduced to 3 tabs daily Prostate cancer metastatic Biopsy 12/30 - multicore Ty 8, PSA 96 Initial treatment EXBRT 11/03 Metastatic treatment combination GnRH injections with oral antiantigen PSA 09/03 0.2, 03/04 PSA 0.23, 07/05 0.2 T 9, 01/03 P 0.4 T 122, 04/05 0.3, 07/06 0.3, 10/05 0.6 T 3, 04/06 0.5 T <1 Imaging 11/03 bone scan with evidence of metastatic disease to the ribs and iliac crest - 11/[address] no evidence of bony metastases - 03/04 bone scan shows improvement, density shows osteopenia - 12/06 Bone Scan with improvement on iliac crest - 06/05 Bone Density - osteopenia - on calcium supplementation - 07/06 bone scan with minimal evidence of bony metastases Bladder cancer recurrent low-grade 12/2020, 06/05, 05/06 Initial diagnosis July 2018 low-grade superficial Cystoscopy Aug 2020 small superficial recurrence, 04/04 NAD, 08/04 NAD, 09/06 Cytology 04/05 NAD, 09/06 NAD Intervention - December 2020 TURBT 2 cm with satellite lesions, 06/05 multiple small lesions removed (small preperitoneal bladder perf) - 04/06 urinary papilloma Pathology - December 2020 low-grade bladder cancer, 06/05 low-grade superficial - 04/06 Inflammatory Adjuvant therapy - January 2021 6 week gemcitabine induction, 08/04 3 weeks gemcitabine 06/05 6 week reinduction gemcitabine PFSH Medical History Pulmonary emboli Hx of migraines CKD (chronic kidney disease), stage III Dizziness Malignant tumor of prostate (05/16/21) Hyperlipidemia (05/16/21) Essential hypertension (05/16/21) Complex partial seizure disorder Seizure disorder Tremor Cerebral microvascular disease Bone cancer Bladder cancer Bladder tumor Prostate CA Hematuria Elevated cholesterol HTN (hypertension) Surgical History Hx of colonoscopy History of cystoscopy H/O prostate biopsy Social History Household Members: Spouse Housing: House Are you a primary healthcare marketer to a significant other at home: No Do you presently have visiting nurse or other home services: No Alcohol intake: never Comment: no count Patient Tobacco Use Status: Never used Tobacco Second Hand Smoke Exposure: No Advance Directives Date on File: 05/22/22 service: No Current occupational status: retired Review of Systems Const Denies chills and Denies fever(s) Card Reports no additional complaints and Denies syncope Resp Denies cough GI Denies abdominal pain and Denies heartburn Reports as per HPI and Denies change in libido Neuro Denies syncope Psych Denies change in libido Endo Denies change in libido Physical Exam Const General: cooperative, healthy appearing, comfortable and no acute distress Orientation/consciousness: patient oriented x3 HEENT Face and sinus: Yes normal facial exam Mouth: moist mucous membranes Neck Neck: Yes normal visual inspection, Yes full ROM and Yes trachea midline Chest Chest palpation & inspection: normal inspection of the chest Resp Effort & Inspection: normal respiratory effort, able to speak in complete sentences and no respiratory distress GI Inspection: Yes normal to inspection Back/Spine/Pelvis Cervical Spine: normal cervical lordosis Thoracic/Lumbar Spine: thoracic and lumbar spine normal to inspection Skin General skin exam: no rashes or lesions noted Neuro General: patient oriented x3, gait normal, tone normal and moves all extremities Extrem General: Yes normal to inspection and Yes capillary refill normal Office Procedures Cystoscopy Consent Discussed risk and benefit or proposed procedure with the patient. Information consent for procedure given to the patient. Discussed technical aspects, risks, benefits and alternatives in full. Addressed all of the patient's questions and concerns regarding the procedure. The patient demonstrated knowledge and understanding. They wish to proceed with this procedure. Preparation The patient was prepped in the usual manner. A regulatory specialist was present and in the room. Genitalia was prepped with betadine solution in a sterile manner. Lidocaine Jelly 2% was placed into the urethra and 16Fr flexible Olympus cystoscope was inserted into the meatus after adequate lubrication. Procedure Cystoscopy performed using a disposable Urovue digital 16 Colombian cystoscope. Meatus circumcised Urethra anterior and posterior urethra normal Prostatic Urethra unremarkable Bladder examination with retroflexion of cystoscope Bladder Orifices normal shape and position Bladder Capacity median Trabeculations grade 1/2 Cellule Formation no Diverticulum Formation - Mucosal Erythema - Bladder Tumor evidence of multiple scarring, small superficial lesion posterior wall [id number] DISPOSABLE SCOPE URO-G FLEXIBLE SCOPE Procedure code (CPT) selection complete Office Meds lidocaine HCl 2 % mucosal jelly in applicator Performing Provider: Dom Maier MD Performing Location: [facility] [place] [facility] Administered by: Dom Maier MD on 01/01/25 09:27 Dose Route Admin Location Dispensed Lot Number Expiration Date [facility] Charge Machine Operator 10 mL intra-urethral 10 mL nitrofurantoin monohydrate/macrocrystals 100 mg capsule Performing Provider: Dom Maier MD Performing Location: [facility] [place] Urology Services-[place] Administered by: Dom Maier MD on 01/01/25 09:27 Dose Route Admin Location Dispensed Lot Number Expiration Date [facility] Charge Machine Operator 100 mg PO 1 cap Eligard (6 month) 45 mg (6 month) subcutaneous syringe Performing Provider: Dom Maier MD Performing Location: [facility] [place] Urology Services-[place] Administered by: Eliana Hinds RN on 01/01/25 09:21 Dose Route Admin Location Dispensed Lot Number Expiration Date [facility] Charge Machine Operator 45 mg subcut Left upper arm 45 mg [id number] 05/15/26 [id number] [id number] Results AMB Urinalysis, Automated UA Leukoctes 0 Jeff/uL Last Edit by Katerina Hammond CMA on 01/01/25 09:09 UA Nitrite Negative Last Edit by Katerina Hammond CMA on 01/01/25 09:09 UA Urobilinogen 0.2 mg/dL Last Edit by Katerina Hammond CMA on 01/01/25 09:09 UA Protein 15 mg/dL Last Edit by Katerina Hammond CMA on 01/01/25 09:09 UA pH 6.0 Last Edit by Katerina Hammond CMA on 01/01/25 09:09 UA Blood 0 Phi/uL Last Edit by Katerina Hammond CMA on 01/01/25 09:09 UA Specific [place] 1.020 Last Edit by Katerina Hammond CMA on 01/01/25 09:09 UA Ketone Negative Last Edit by Katerina Hammond CMA on 01/01/25 09:09 UA Bilirubin 0 mg/dL Last Edit by Katerina Hammond CMA on 01/01/25 09:09 UA Glucose 0 mg/dL Last Edit by Katerina Hammond CMA on 01/01/25 09:09 Results Reviewed Results Reviewed: Laboratory Last Values Urine pH (Auto) 6.0 01/01/25 09:02 Specific [place] (Auto) 1.020 01/01/25 09:02 Urine Protein (Auto) 15 mg/dL 01/01/25 09:02 Glucose (UA)(Auto) 0 mg/dL 01/01/25 09:02 Urine Ketones (Auto) Negative 01/01/25 09:02 Urine Blood (Auto) 0 Phi/uL 01/01/25 09:02 Urine Nitrite (Auto) Negative 01/01/25 09:02 Urine Bilirubin (Auto) 0 mg/dL 01/01/25 09:02 Urine Urobilinogen (Auto) 0.2 mg/dL 01/01/25 09:02 Leukocyte Esterase (Auto) 0 Jeff/uL 01/01/25 09:02 Assessment & Plan Assessment & Plan (1) Bladder cancer: Comment: Recurrent low-grade multifocal - 06/05 Code(s): C67.9 - Malignant neoplasm of bladder, unspecified Category: Medical Qualifiers: Bladder location: dome Qualified Code(s): C67.1 - Malignant neoplasm of dome of bladder (2) Prostate cancer metastatic to bone: Code(s): C61 - Malignant neoplasm of prostate; C79.51 - Secondary malignant neoplasm of bone Category: Medical (3) Overactive bladder: Code(s): N32.81 - Overactive bladder Category: Medical Plan Recurrent superficial bladder cancer Three-month follow-up PET-CT Orders: Orders AMB Cystoscopy 01/01/25 C67.1 - Malignant neoplasm of dome of bladder AMB Leuprolide Injection - Practice Supplied 01/01/25 C61 - Malignant neoplasm of prostate, C79.51 - Secondary malignant neoplasm of bone AMB Urinalysis Automated 01/01/25 C67.1 - Malignant neoplasm of dome of bladder Patient Instructions: This note is constructed using voice recognition software. While every effort has been made to ensure accuracy assembler arranger errors may have been included. Imaging studies, laboratory and physical exam results were discussed and reviewed in detail. No major barriers to patient understanding were identified. An opportunity to ask questions regarding the treatment plan was provided. All questions were answered. The patient expressed understanding and agreement with the above treatment plan. The patient is aware they should contact our office by phone for worsening of their current condition or the appearance of new urologic symptoms. Compliance is encouraged with any medications and followup testing that is ordered. It is a privilege to participate in the urologic care of your patient. If you have any questions or concerns regarding treatment for the above conditions, or other urologic issues, please do not hesitate to contact me. The office telephone contact is [phone]. Sincerely, Dr Dom Maier MD, [facility] - Urology Compassionate Specialist Care for the Genitourinary System Coding Level of Care Code Est Pt Level 3 (70175) Complex EM visit Add On G2211 Diagnoses Malignant neoplasm of dome of urinary bladder C67.1 Bladder location: dome Prostate cancer metastatic to bone C61; C79.51 Overactive bladder N32.81 CPT Codes Cystoscopy - CPT: [id number] ([id number])
== END 2025-01-01 09:39 | disposition home or self-care (01) ==
LOC: HO.HUSH 08:56
PROVIDERS: PCP Family Medicine; Visit Provider Urology
DX: C61 Malignant neoplasm of prostate (principal); C79.51 Secondary malignant neoplasm of bone; C67.1 Malignant neoplasm of dome of bladder
CPT/HCPCS: 52000; 99213; G2211

== ENCOUNTER → 2025-01-01 08:55 | Outpatient (BNVA) | payer OTHER, SELFPAY | PROVIDERS: PCP Family Medicine; Visit Provider Urology | DX: C67.1 Malignant neoplasm of dome of bladder (principal); C61 Malignant neoplasm of prostate; C79.51 Secondary malignant neoplasm of bone; N32.81 Overactive bladder | CPT/HCPCS: 52000; 81003; 96402; 99212; J9217 ==

== ENCOUNTER 2025-03-03 09:05 | Outpatient (REF) | payer OTHER, SELFPAY ==
--- NOTE | ~2025-03-03 | PE_ITS ---
PT/CT SKULL BASE TO MID THIGH HISTORY: C61 - Malignant neoplasm of prostate COMPARISON: Correlation is made with a bone scan dated 02/19/2024, a chest CT dated 06/21/2023, and an abdominal and pelvic CT dated 01/06/2023. TECHNIQUE: Images were obtained from the skull base to the proximal thighs. Image reconstruction was performed in the axial, coronal, and sagittal planes. Fusion images were obtained and evaluated using the concurrently performed unenhanced CT scan. Images were obtained approximately 56 minutes after the intravenous administration of 5.3 mCi PSMA A low dose 3.[address] scan was acquired for attenuation correction. PET and CT in-line fusion was performed for anatomical correlation of the functional information obtained from PSMA PET imaging. FINDINGS: HEAD/NECK: No abnormal PSMA activity is identified in the head or neck. Physiologic activity is seen in the lacrimal glands, parotid glands, and submandibular glands which appears symmetric. CHEST: No abnormal PSMA activity is identified in the chest. ABDOMEN/PELVIS: Activity is seen in the urinary bladder. There is a tiny focus of activity within the soft tissues posterior and to the right of the bladder apex (SUV max 5.1) which is difficult to visualize on the CT images may represent a lymph node (series 301, image 252). Physiologic activity is noted in the liver, spleen, kidneys, and small bowel. SKELETAL: No suspicious musculoskeletal uptake is identified. PET/CT SCAN PET/PET CT fusion skull to thigh IMPRESSION: Tiny focus of activity in the soft tissues posterior and to the right of the urinary bladder apex which may represent a metastatic lymph node. Otherwise unremarkable PET/CT scan. Electronically signed by: Alex Bhardwaj MD 03/10/2025 10:02 AM EDT
--- OUTSIDE RECORDS SUMMARY | 2025-03-03 09:46 | XMS_ITS | Encounter Summary ---
Author Organization [employer] Address [address] [facility] [address] [place] [address] Care Team Providers Care Family Engagement Specialist Name Role Phone Unavailable Primary Care Provider Unavailabl e Reason for Visit * Reason Onset Date Comments medication 08/29/2024 Encounter Details Date Type Department Care Team ([facility] st Contact Info) Description 08/29/2024 Telephone [facility] ADULT DENTAL [address] [place], [place] [phone] Fredis Doe DDS [address] [place], [place] [phone] medication Social History Tobacco Use Types Packs/Day [...] pharmacy from appt on 08/29. [facility] * Telephone Encounter - [...]
--- OUTSIDE RECORDS SUMMARY | 2025-03-03 09:46 | XMS_ITS | Clinical Summary ---
Author Organization [employer] Address [address] [facility] [address] [place] [address] Care Team Providers Care Oyster Harvester Name Role Phone Unavailable Primary Care Provider [...] Periodontal disease 08/28/2024 Odontalgia 08/28/2024 Fractured dental scientology with loss of materi al 08/28/2024 Social History Tobacco Use Types Packs/Day Years [...] - Risk 60-74 years 1-dose series) 2012 COVID-19 Vaccine ( season) 2024 06/17/2024, 11/27/2023, 10/09/2021, Additional history exists Tobacco Screening 09/24/2025 09/24/2024 DTaP/Tdap/Td Vaccines (4 - Td or Tdap) 08/21/2034 08/21/2024, 01/06/2023, 07/29/2013, Additional history exists Pneumococcal Vaccine: 50+ Years Completed 06/21/2020, 11/11/2018 Influenza Vaccine Completed 07/01/2024, , 07/05/2022, Additional [...] patient's age to complete this topic Meningococcal B Vaccine Aged Out No l onger eligible based on patient's age to complete this topic Meningococcal Vaccine Aged Out No anna marie mary eligible based on patient's age to complete this topic RSV under 20 months Aged Out No longe r eligible based on patient's age to complete this topic Rotavirus Vaccines Aged Out No longer eligible based on patient's age to complete this topic Insurance [facility]
== END 2025-03-03 09:06 | disposition home or self-care (01) ==
LOC: HO.PET 09:05
PROVIDERS: PCP Family Medicine; Visit Provider Urology
DX: Z13.89 Encounter for screening for other disorder (principal)

== ENCOUNTER 2025-03-19 08:19 | Outpatient (REF) | payer OTHER, SELFPAY ==
--- OUTSIDE RECORDS SUMMARY | 2025-03-19 08:32 | XMS_ITS | Data Portability ---
Author Organization [facility], [facility] Address [address] [place] [address] Care Team Providers Care Print Line Supervisor Name Role Phone SVETLANA WOODRUFF Primary Care Provider MUSA MAIER OTHER [facility]ILDER KULKARNI OTHER [facility] OTHER RAMON PRICE OTHER [facility] Neurologis t Assessment Encounter Date Assessment Date Assessment LastModified by Organization Details LastModified Time 11/12/2024 11/12/2024 Chronic kidney disease stage III,Keratosis jerskine Not available 11/12/2024 12:42:22 01/14/2025 01/14/2025 Chronic kidney disease stage III,Keratosis jerskine Not available 01/14/2025 10:07:00 03/18/2025 03/18/2025 Chronic kidney disease stage III, onychauxis left hallux jerskine Not available 03/18/2025 14:34:19 Plan of Treatment Reminders Order Date Submit Date Provider Last Modified By Organization Details Last Modified Time Details Appointments Medical Managemen t 30 2024 03:45P M Svetlana Woodruff MD Not available Not available Not available Routine Foot Care 15 2024 11:00A M Ren Fabian DPM Not available Not available Not available Lab None recorded. Referral None recorded. Procedures None recorded. Surgeries None recorded. Imaging None recorded. Medication Orders triamcino lone acetonide 0.1 % topical cream 2024 025 [facility]/Pharmacy #[id number], [address] [place], [address], 12/19/2024 13:49:55 amlodipin e 5 mg tablet 2024 025 [facility]/Pharmacy #[id number], [address] [place], [address], 12/10/2024 18:05:52 Patient TargetsNo targets recorded. Patient Instructions Encounter Date Encounter Id Patient Instructions Last Modified By Organization Details Last Modified Time 11/12/2024 [id number] Patient to apply ammonium lactate cream daily and return if symptoms persist. jerskine Not available 11/12/2024 12:42:22 01/14/2025 [id number] Patient to apply ammonium lactate cream daily and return if symptoms persist. jerskine Not available 01/14/2025 10:07:00 03/18/2025 [id number] Patient to retur n in 9 weeks for foot care to reduce risk of complications associated with chronic kidney disease and history of DVT. jerskine Not available 03/18/2025 14:34:19 Reason for Referral None Reported. Results Created Date Observation Date Name Description Value Unit Range Abnormal Flag Note LastModifiedBy Organization Detail LastModifiedTime 11/10/1911/10/2024 HGB A1C hemoglobin A1C 6.0 % 4.8-6. 0 Goal: <7% in Patie nts with Diabe faith An A1c betwe en 5.7-6 .4% is ident ified as pre-d iabet es and sugge sts risk for progr essio n to diabe faith Two a1c value s of 6.5% or highe r is consi stent with a diagn osis of diabe faith but may need furth er confi rmati on Not Available [address], [address], 11/10/2024 11:20:57 11/10/19 25 11/10/2024 HGB A1C estimated average glucose 125.5 mg/dL Not Available [address], [address], 11/10/2024 11:20:57 11/10/19 25 11/10/2024 LIPID PANEL cholesterol 122 mg/dL <200 mg/dl Gale able 200-2 39 mg/dl Bang linares High >240 mg/dl High Not Available [address], [address], 11/10/2024 15:49:14 11/10/19 25 11/10/2024 LIPID PANEL triglyceride s 108 mg/dL <150 mg/dL Lary l 150-1 99 mg/dL Borde rline High 200-4 99 mg/dL High >500 mg/dL Very High Not Available [address], [address], 11/10/2024 15:49:14 11/10/19 25 11/10/2024 LIPID PANEL direct HDL 74 mg/dL <40 mg/dl - Major Risk for CHD >60 mg/dl - Negat juvenal Risk for CHD Not Available [address], [address], 11/10/2024 15:49:14 11/10/19 25 11/10/2024 LDL - CALCU LATED LDL - calculated 26 RISK CATEG ORY LDL GOAL _ CHD or CHD Risk Equiv alent s <100 mg/dl (10-y ear risk >20%) 2+ Risk Facto rs <130 mg/dl (10-y ear risk <= 20%) 0-1 Risk Facto r? <160 mg/dl ? Almos t all peopl e with 0-1 risk facto r have a 10 year risk <10%, thus 10 year risk asses ment in peopl e with 0-1 risk facto r is not neces morales. Not Available [address], [address], 11/10/2024 15:49:16 11/10/19 25 11/12/2024 COMP. METAB OLIC PANEL glucose 106 mg/dL 70-100 high Not Available [address], [address], 11/12/2024 09:32:50 11/10/19 25 11/12/2024 COMP. METAB OLIC PANEL BUN 27 mg/dL 7-18 high Not Available [address], [address], 11/12/2024 09:32:50 11/10/19 25 11/12/2024 COMP. METAB OLIC PANEL creatinine 1.3 mg/dL 0.8-1. 3 Not Available [address], [address], 11/12/2024 09:32:50 11/10/19 25 11/12/2024 COMP. METAB OLIC PANEL B/C 20.8 ratio Not Available [address], [address], 11/12/2024 09:32:50 11/10/19 25 11/12/2024 COMP. METAB OLIC PANEL GFR 58.4 mL/mi n abnormal >=60m L/min - Lary l or midly reduc ed <60mL /min- Decre ased kidne y funct ion <15mL /min - Kidne y failu re [facility] calcu lates estim ated Glome rular Filtr ation Rate (eGFR ) using the Chron ic Kidne y Disea se Epide miolo gy Colla borat ion (CKD- EPI) Equat ion (Kierra r et. al 2020) as recom nelly d by the Natio nal Kidne y Found ation . eGFR is based on age, serum creat inine , and sex. CKD-E PI does not calcu late eGFR by race, does not apply to child rhys (age <18 years ), and shoul d not be used in pregn sinan. Not Available [address], [address], 11/12/2024 09:32:50 11/10/19 25 11/12/2024 COMP. METAB OLIC PANEL sodium 142 mmol/ L 136-14 5 Not Available [address], [address], 11/12/2024 09:32:50 11/10/19 25 11/12/2024 COMP. METAB OLIC PANEL potassium 4.5 mmol/ L 3.5-5. 1 Not Available [address], [address], 11/12/2024 09:32:50 11/10/19 25 11/12/2024 COMP. METAB OLIC PANEL chloride 105 mmol/ L 96-107 Not Available [address], [address], 11/12/2024 09:32:50 11/10/19 25 11/12/2024 COMP. METAB OLIC PANEL anion gap 10.0 5.0-15 .0 Not Available [address], [address], 11/12/2024 09:32:50 11/10/19 25 11/12/2024 COMP. METAB OLIC PANEL CO2 27 mmol/ L 21-32 Not Available [address], [address], 11/12/2024 09:32:50 11/10/19 25 11/12/2024 COMP. METAB OLIC PANEL calcium 8.7 mg/dL 8.5-10 .3 Not Available [address], [address], 11/12/2024 09:32:50 11/10/19 25 11/12/2024 COMP. METAB OLIC PANEL total protein 7.2 g/dL 6.4-8. 2 Not Available [address], [address], 11/12/2024 09:32:50 11/10/19 25 11/12/2024 COMP. METAB OLIC PANEL albumin 3.3 g/dL 3.4-5. 0 low Not Available [address], [address], 11/12/2024 09:32:50 11/10/19 25 11/12/2024 COMP. METAB OLIC PANEL globulin 3.9 g/dL Not Available [address], [address], 11/12/2024 09:32:50 11/10/19 25 11/12/2024 COMP. METAB OLIC PANEL A/G 0.8 ratio 0.8-2. 0 Not Available [address], [address], 11/12/2024 09:32:50 11/10/19 25 11/12/2024 COMP. METAB OLIC PANEL total bilirubin 0.90 mg/dL 0.00-1 .00 Not Available [address], [address], 11/12/2024 09:32:50 11/10/19 25 11/12/2024 COMP. METAB OLIC PANEL AST 15 U/L 0-37 Not Available [address], [address], 11/12/2024 09:32:50 11/10/19 25 11/12/2024 COMP. METAB OLIC PANEL ALT 24 U/L 6-63 Not Available [address], [address], 11/12/2024 09:32:50 11/10/19 25 11/12/2024 COMP. METAB OLIC PANEL alk. phos. 118 U/L 50-136 Not Available [address], [address], 11/12/2024 09:32:50 12/19/19 25 12/18/2024 PSA, serum or plasm a PSA 2.56 Not Available [facility] (Medical Records) [address] [place] [address], [address], 12/19/2024 11:08:51 03/18/20 25 03/18/2025 CBC WBC 6.32 K/? ? ?L 4.23-9 .07 Not Available [address], [address], 03/18/2025 11:15:31 03/18/2003/18/2025 CBC RBC 4.05 M/? ? ?L 4.63-6 .08 low Not Available [address], [address], 03/18/2025 11:15:31 03/18/2003/18/2025 CBC HGB 13.1 g/dL 13.7-1 7.5 low Not Available [address], [address], 03/18/2025 11:15:31 03/18/2003/18/2025 CBC HCT 40.4 % 40.1-5 1.0 Not Available [address], [address], 03/18/2025 11:15:31 03/18/20 25 03/18/2025 CBC MCV 99.8 fL 79.0-9 2.2 high Not Available [address], [address], 03/18/2025 11:15:31 03/18/2003/18/2025 CBC MCH 32.3 pg 25.7-3 2.2 high Not Available [address], [address], 03/18/2025 11:15:31 03/18/2003/18/2025 CBC MCHC 32.4 g/dL 32.3-3 6.5 Not Available [address], [address], 03/18/2025 11:15:31 03/18/2003/18/2025 CBC plt 244 K/? ? ?L 163-33 7 Not Available [address], [address], 03/18/2025 11:15:31 03/18/2003/18/2025 CBC MPV 9.9 fL 9.4-12 .4 Not Available [address], [address], 03/18/2025 11:15:31 03/18/2003/18/2025 CBC neut% 48.3 % 34.0-6 7.9 Not Available [address], [address], 03/18/2025 11:15:31 03/18/2003/18/2025 CBC neut# 3.05 1.78-5 .38 Not Available [address], [address], 03/18/2025 11:15:31 03/18/2003/18/2025 CBC lymph % 41.0 % 21.8-5 3.1 Not Available [address], [address], 03/18/2025 11:15:31 03/18/2003/18/2025 CBC lymph # 2.59 K/? ? ?L 1.32-3 .57 Not Available [address], [address], 03/18/2025 11:15:31 03/18/2003/18/2025 CBC mono% 7.9 % 5.3-12 .2 Not Available [address], [address], 03/18/2025 11:15:31 03/18/2003/18/2025 CBC mono# 0.50 0.30-0 .82 Not Available [address], [address], 03/18/2025 11:15:31 03/18/2003/18/2025 CBC eo% 1.7 % 0.8-7. 0 Not Available [address], [address], 03/18/2025 11:15:31 03/18/2003/18/2025 CBC eo# 0.11 0.04-0 .54 Not Available [address], [address], 03/18/2025 11:15:31 03/18/2003/18/2025 CBC baso% 0.9 % 0.2-1. 2 Not Available [address], [address], 03/18/2025 11:15:31 03/18/2003/18/2025 CBC baso# 0.06 0.00-0 .08 Not Available [address], [address], 03/18/2025 11:15:31 03/18/2003/18/2025 CBC RDW-CV 13.6 % 11.6-1 4.4 Not Available [address], [address], 03/18/2025 11:15:31 03/18/2003/18/2025 CBC Ig% 0.200 % 0.000- 1.500 Ig % >0.5 Indic ates possi ble Left Shift Not Available [address], [address], 03/18/2025 11:15:31 03/18/2003/18/2025 CBC Ig# 0.010 0.000- 0.093 Not Available [address], [address], 03/18/2025 11:15:31 03/18/2003/18/2025 CBC NRBC% 0.0 % 0.0-0. 2 Not Available [address], [address], 03/18/2025 11:15:31 03/18/2003/18/2025 CBC NRBC# 0.000 0.000- 0.012 Not Available [address], [address], 03/18/2025 11:15:31 03/18/2003/18/2025 BASIC METAB OLIC PANEL glucose 102 mg/dL 70-100 high Not Available [address], [address], 03/18/2025 11:32:09 03/18/20 25 03/18/2025 BASIC METAB OLIC PANEL BUN 33 mg/dL 7-18 high Not Available [address], [address], 03/18/2025 11:32:09 03/18/2003/18/2025 BASIC METAB OLIC PANEL creatinine 1.4 mg/dL 0.8-1. 3 high Not Available [address], [address], 03/18/2025 11:32:09 03/18/20 25 03/18/2025 BASIC METAB OLIC PANEL B/C 23.6 ratio Not Available [address], [address], 03/18/2025 11:32:09 03/18/2003/18/2025 BASIC METAB OLIC PANEL GFR 53.4 mL/mi n abnormal >=60m L/min - Lary l or midly reduc ed <60mL /min- Decre ased kidne y funct ion <15mL /min - Kidne y failu re [facility] calcu lates estim ated Glome rular Filtr ation Rate (eGFR ) using the Chron ic Kidne y Disea se Epide miolo gy Colla borat ion (CKD- EPI) Equat ion (Kierra r et. al 2020) as recom nelly d by the Natio nal Kidne y Found ation . eGFR is based on age, serum creat inine , and sex. CKD-E PI does not calcu late eGFR by race, does not apply to child rhys (age <18 years ), and shoul d not be used in pregn sinan. Not Available [address], [address], 03/18/2025 11:32:03/18/2003/18/2025 BASIC METAB OLIC PANEL sodium 141 mmol/ L 136-14 5 Not Available [address], [address], 03/18/2025 11:32:03/18/2003/18/2025 BASIC METAB OLIC PANEL potassium 4.6 mmol/ L 3.5-5. 1 Not Available [address], [address], 03/18/2025 11:32:03/18/2003/18/2025 BASIC METAB OLIC PANEL chloride 103 mmol/ L 96-107 Not Available [address], [address], 03/18/2025 11:32:09 03/18/2003/18/2025 BASIC METAB OLIC PANEL anion gap 8.5 5.0-15 .0 Not Available [address], [address], 03/18/2025 11:32:03/18/2003/18/2025 BASIC METAB OLIC PANEL CO2 30 mmol/ L 21-32 Not Available [address], [address], 03/18/2025 11:32:03/18/2003/18/2025 BASIC METAB OLIC PANEL calcium 8.9 mg/dL 8.5-10 .3 Not Available [address], [address], 03/18/2025 11:32:11/03/1911/03/2024 XR, ribs, unila teral CLINIC AL HISTOR Y: Right rib pain after fall. TECHNI QUE: At least [address] views of the right ribs are obtain ed. COMPAR TAMY: None. FINDIN GS: No fractu re or soft tissue abnorm ality of the ribs is seen. The lungs and pleura l spaces are clear. IMPRES SARAH: No acute bony abnorm ality. Niru maguire Physic cali: Eladio Lauren ms [facility] (Imaging) [address] [place], [address], 11/04/2024 20:16:52 11/03/19 25 11/03/2024 XR, hand CLINIC AL HISTOR Y: Right hand and finger pain after injury . TECHNI QUE: Three views of the right hand obtain ed. COMPAR TAMY: None. FINDIN GS: There are obliqu alisa orient ed fractu res throug h the proxim al halves of the third and fourth metaca rpals. There is minima l sublux ation with step-o ffs up to 1 mm. There is mild, diffus e DIP joint spurri ng. There is right first digit IP joint spurri ng. IMPRES SARAH: Third and fourth metaca rpal fractu res. Diffus e DIP joint spurri ng. Niru maguire Physic cali: Eladio Lauren [facility] (Imaging) [address] [place], [address], 11/04/2024 20:16:52 11/07/19 25 05/20/2024 DEXA, axial skele ton No observ ation record ed. [facility] [address] [place], [address], 11/08/2024 16:31:48 03/10/20 25 03/03/2025 PET, skull base to mid-t high No observ ation record ed. [facility] [address] [facility], [place], [address], 03/10/2025 14:43:59 Result Notes None recorded. Problems Name Problem SNOMED Code Status Onset Date Resolution Date Notes Provider Name and Address Organization Details Recorded Time Pure hypercho lesterol emia 449276169 Active Not Available [facility] 09:41:06 History of transien t ischemic attack 665143195 Active approx 2007 on asprinin Svetlana Woodruff MD [address] [place] [address], [phone] , [facility] 2 10:50:43 Essentia l tremor Active 2008 Svetlana Woodruff MD [address] [place] [address], [phone] , [facility] 2 10:50:43 Malignan t neoplasm of prostate 339978936 Active 10/2017 low grade Papillar y urotheli al Carcinom a ? 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 Svetlana Woodruff MD [address] [place] [address], [phone] , [facility] 2 09:16:41 Complica cy migraine 503669173 Active 2020 MRI brain - severe microang iopathic changes and mod cerebral atrophy 06/2021 Svetlana Woodruff MD [address] [place] [address], [address] , [facility] 2 10:50:43 Metastas is from malignan t tumor of prostate 272576480 Active 2021 Svetlana Woodruff MD [address] [place] [address], [address] , [facility] 2 10:51:43 Metastas is from malignan t tumor of prostate 674860531 Active 2021 Svetlana Woodruff MD [address] [place] [address], [address] , [facility] 2 10:51:43 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 2 10:49:25 Low back pain 836768651 Active 2022 BAILEY Romero [address] [place] [address], [address] , [facility] 3 16:50:56 Senile purpura 36509997 Active 2022 BAILEY Romero [address] [place] [address], [address] , [facility] 3 16:52:23 Screenin g for malignan t neoplasm of prostate Active 2022 Svetlana Woodruff MD [address] [place] [address], [address] , [facility] 3 14:40:56 Chronic cerebral ischemia 545449707 Active 2022 CT 09/2023 - moderate ly severe - Dr Kulkarni neuro Svetlana Woodruff MD [address] [place] [address], , [facility] 4 09:08:21 Migraine 91215608 Active 2022 Svetlana Woodruff MD [address] [place] [address], , [facility] 4 09:08:39 Seizure 90655712 Active 2022 Julia Cornell PA-C [address] [place] [address], , [facility] 3 14:37:20 Osteopen ia 333829234 Active 2023 BAILEY Romero [address] [place] [address], , [facility] 4 16:43:14 Metastat ic malignan t neoplasm to prostate 39550495 Active 2023 Svetlana Woodruff MD [address] [place] [address], , [facility] 4 15:36:50 Mixed hyperlip idemia 330045500 Completed 200702/24/2015 Svetlana Woodruff MD [address] [place] [address], [address] , [facility] 5 09:15:36 Headache 45080063 Active 2006 Not Available [facility] 1 09:41:06 Transien t cerebral ischemia 618286800 Active 2008 Not Available [facility] 1 09:41:06 Essentia l hyperten sarah 22713136 Completed 11/09/2019 Svetlana Woodruff MD [address] [place] [address], [address] , [facility] 0 16:30:05 Benign essentia l hyperten sarah 9006403 Active Svetlana Woodruff MD [address] [place] [address], [address] , [facility] 2 10:50:43 Lumbar sprain 820044581 Completed 09/03/2013 Not Available [facility] 3 02:03:36 Nocturia 801229534 Completed 200611/09/2019 Svetlana Woodruff MD [address] [place] [address], [address] , [facility] 0 16:30:14 Impaired fasting glycemia 048067122 Active Not Available [facility] 1 09:41:06 Epidermo id cyst of skin 748075969 Completed 200709/03/2013 Not Available [facility] 3 02:02:54 Problem Notes None recorded. Procedures Surgical History Date Name Laterality Status Provider Name and Address Organization Details Recorded Time 024 Wound Care completed Magnolia Ortiz LPN [facility] 08/27/2024 14:08:39 024 Wound Care completed Giles Mc RN [facility] 08/21/2024 12:27:01 024 Post hospital/SNF follow-up/Transit ional Care completed Dorcas Trujillo [facility] 12/26/2023 08:12:52 023 Medicare Wellness Visit completed Milagro Morales [facility] 09/03/2023 14:28:30 023 Wound Care completed Kimmie Liz LPN [facility] 05/15/2023 14:12:31 022 Post hospital/SNF follow-up/Transit ional Care completed Dorcas Trujillo [facility] 09/15/2022 11:16:14 022 Post hospital/SNF follow-up/Transit ional Care completed Dorcas Trujillo [facility] 08/16/2022 09:41:14 022 Post hospital/SNF follow-up/Transit ional Care completed Dorcas Trujillo [facility] 07/05/2022 08:55:31 022 Medicare Wellness Visit completed Dorcas Trujillo [facility] 11/02/2021 11:15:27 022 Alcohol use screening completed Dorcas Trujillo [facility] 11/02/2021 11:15:27 022 Cardiovascular disease risk reduction counseling completed Dorcas Trujillo [facility] 11/02/2021 11:15:27 021 Post hospital/SNF follow-up/Transit ional Care completed Shahid Braden [facility] 07/22/2021 10:30:04 021 Post hospital/SNF follow-up/Transit ional Care completed Dorcas Trujillo [facility] 07/20/2021 13:36:16 021 Post hospital/SNF follow-up/Transit ional Care completed Dorcas Trujillo [facility] 06/01/2021 10:04:45 Physical Activity Counselling completed Oxana Burgess Ms, PT [address] [place], [address], [facility] 04/27/2021 14:31:28 021 52816: PT Eval Low Complexity completed Oxana Burgess Ms, PT [address] [place], [address], [facility] 04/27/2021 14:31:22 021 Treatment and Advice completed Oxana Burgess Ms, PT [address] [place], [address], [facility] 04/27/2021 14:41:28 021 Medicare Wellness Visit completed Britta Rome MA [facility] 03/11/2021 10:09:29 021 prevention-cardio vascular risk reduction counseling completed Britta Rome MA [facility] 03/11/2021 10:09:29 021 prevention-annual alcohol misuse screening completed Britta Rome MA [facility] 03/11/2021 10:09:29 020 Post hospital/SNF follow-up/Transit ional Care completed Dorcas Trujillo [facility] 07/26/2020 10:46:28 020 Telephonic Visit completed Dorcas Trujillo [facility] 07/26/2020 10:46:21 020 Medicare Wellness Visit completed [facility] 11/12/2019 11:22:15 020 prevention-cardio vascular risk reduction counseling completed [facility] 11/12/2019 11:22:15 020 prevention-annual alcohol misuse screening completed [facility] 11/12/2019 11:22:15 020 Advanced Care Planning completed [facility] 11/12/2019 11:22:19 019 Post hospital/SNF follow-up/Transit ional Care completed Dorcas Trujillo [facility] 07/11/2019 08:59:31 019 Medicare Risk for Falls Screen completed Dorcas Trujillo [facility] 06/18/2019 08:34:01 019 Medicare Wellness Visit completed Cheo Hamilton [facility] 11/11/2018 11:23:58 018 Medicare Wellness Visit completed Dorcas Trujillo [facility] 11/05/2017 11:27:42 018 Advanced Care Planning completed Svetlana Woodruff MD [address] [place], [address], [facility] 11/05/2017 12:11:46 017 [address]: Therapeutic Activities - Direct 1:1 completed Oxana Burgess Ms, PT [address] [place], [address], [facility] 02/28/2017 08:50:32 017 Treatment and Advice completed Oxana Burgess Ms, PT [address] [place], [address], [facility] 02/28/2017 08:45:51 017 Physical Activity Counselling completed Oxana Burgess Ms, PT [address] [place], [address], [facility] 02/19/2017 12:57:50 017 57234: PT Eval Low Complexity completed Oxana Burgess Ms, PT [address] [place], [address], [facility] 02/19/2017 12:57:45 017 Treatment and Advice completed Oxana Burgess Ms, PT [address] [place], [address], [facility] 02/19/2017 12:58:44 010 Treatment and Advice completed [facility] 12/30/2009 15:49:32 010 Treatment and Advice completed [facility] 12/13/2009 10:38:29 Imaging Results None recorded. Procedure Notes None recorded. Medical Equipment None Reported. Allergies Allergen ID Allergen Name Allergen Category Reaction Reaction Severity Criticality Documentation Date Start Date Code Code System Note Provider Name and Address Organization Details Recorded Time 19780617 primidone medicatio n diarrhea dizziness headache moderate moderate severe Not available 04/04/20172016 8691 [facility] 08:[facility]34 Medications Name Sig Start Date Stop Date Status Note LastModified by Organization Details LastModified Time magnesium 200 mg tablets 200mg TAKE 1 TABLET BY MOUTH TWICE A DAY 11/12 completed not taking 09/17/20 19 ds Not Available Not Available Not Available [facility] 2 mg capsule,e xtended release 24 hr TAKE 1 CAPSULE BY MOUTH EVERY DAY FOR 30 DAYS active Not Available Not Available No t Available amoxicill in 500 mg capsule TAKE 1 CAPSULE (500 MG) BY MOUTH EVERY 8 HOURS FOR 7 DAYS 11/03 completed Not Available Not Available Not Available atorvasta tin 40 mg tablet TAKE 1 TABLET BY MOUTH EVERY DAY active Not Available Not Available No t Available Vitamin B-2 100 mg tablet TAKE 1 TABLET BY MOUTH TWICE A DAY active Not Available Not Available No t Available bicalutam dmitri 50 mg tablet 07/26 completed Not taking 0 per CA doctor tv no longer using 06/04/20 20 pd Not Available Not Available Not Available loperamid e 2 mg capsule TAKE 1 CAPSULE BY MOUTH 4 TIMES A DAY NEEDED FOR DIARRHEA . 09/04 completed Not Available Not Available Not Available levetirac etam 500 mg tablet TAKE 2 TABLETS BY MOUTH TWICE A DAY active Not Available Not Available No t Available hydrocodo ne 5 mg-acetam inophen 325 mg tablet 1-2 tabs every 4-6 hours as needed. 06/05 completed Not Available Not Available Not Available ondansetr on HCl 8 mg tablet TAKE 1 TABLET TWICE A DAY BY ORAL ROUTE, FOR BEFORE COLON PREP. 07/01 completed Not Available Not Available Not Available meloxicam 15 mg tablet Take 1 tablet every day by oral route. 01/08 completed Not Available Not Available Not Available dexametha sone 6 mg tablet TAKE 1 TABLET BY MOUTH DAILY FOR 3 DAYS 02/21 completed Not Available Not Available Not Available propranol ol ER 60 mg capsule,2 4 hr,extend ed release TAKE 1 CAPSULE BY MOUTH DAILY active Not Available Not Available No t Available topiramat e 25 mg tablet TAKE 1 TABLET BY MOUTH TWICE A DAY 08/17 completed Not Available Not Available Not Available amlodipin e 2.5 mg tablet TAKE 1 TABLET BY MOUTH EVERY DAY 11/17 completed increase dose Not Available Not Available Not Available amlodipin e 5 mg tablet TAKE 1 TABLET BY MOUTH EVERY DAY active Not Available Not Available No t Available trimethop rim 100 mg tablet 12/27 completed Not Available Not Available Not Available ciproflox acin 500 mg tablet 12/31 completed Not Available Not Available Not Available sulfameth oxazole 800 mg-trimet hoprim 160 mg tablet 04/04 completed Not Available Not Available Not Available tramadol 50 mg tablet TAKE 2 TABLETS BY MOUTH 4 TIMES A DAY 05/25 completed Not Available Not Available Not Available amitripty line 50 mg tablet TAKE 1 TABLET BY MOUTH EVERY DAY active Not Available Not Available No t Available acetamino phen 500 mg tablet 09/28 completed not taking 10/12/21 huma Not Available Not Available Not Available triamcino lone acetonide 0.1 % topical cream APPLY THIN COAT TO AFFECTED AREA TWICE A DAY active Not Available Not Available No t Available simvastat in 40 mg tablet TAKE 1 TABLET EVERY DAY BY ORAL ROUTE. 2012 active Not Available Not Available Not Avai lable acetamino phen ER 650 mg tablet,ex tended release PLEASE SEE ATTACHED FOR DETAILED DIRECTIO NS active Not Available Not Available No t Available Aleve 220 mg tablet 11/18 completed DIRECTED PRN Not Available Not Available Not Available oxycodone -acetamin ophen 5 mg-325 mg tablet 12/31 completed pt no longert taking this med 11/11/18 -sk Not Available Not Available Not Available terbinafi ne HCl 250 mg tablet Take 1 tablet every day by oral route. 11/05 completed Not Available Not Available Not Available amoxicill in 875 mg tablet 03/09 completed Not Available Not Available Not Available amitripty line 25 mg tablet TAKE 1 TABLET BY MOUTH EVERY DAY AT BEDTIME FOR 30 DAYS 09/04 completed Not Available Not Available Not Available primidone 250 mg tablet 1 tab daily for 1 week, then 1 tab twice a day. for tremor 04/04 completed Pt reports [place] Not Available Not Available Not Available magnesium oxide 400 mg (241.3 mg magnesium ) tablet TAKE 1 TABLET BY MOUTH TWICE A DAY 11/12 completed not taking 09/17/20 ds Not Available Not Available Not Available tamsulosi n 0.4 mg capsule TAKE 1 CAPSULE BY MOUTH TWICE A DAY active Not Available Not Available No t Available levetirac etam 250 mg tablet TAKE 1 TABLET BY MOUTH EVERY 12 HOURS 06/07 completed Not Available Not Available Not Available meclizine 25 mg tablet 09/04 completed Not Available Not Available Not Available prednison e 2.5 mg tablet TAKE 1 TABLET ORALLY 2 TIMES A DAY FOR 30 DAYS 05/29 completed Not Available Not Available Not Available cephalexi n 500 mg capsule 11/12 completed Not Available Not Available Not Available simvastat in 20 mg tablet TAKE 1 TABLET BY MOUTH AT BEDTIME. 2010 active dsg increase d Not Available Not Available Not Available oseltamiv ir 75 mg capsule Take 1 capsule twice a day by oral route as directed for 5 days. 06/18 completed Not Available Not Available Not Available lisinopri l 10 mg tablet TAKE 1 TABLET BY MOUTH EVERY DAY 06/01 completed hyperkal emia. Not Available Not Available Not Available propranol ol ER 80 mg capsule,2 4 hr,extend ed release TAKE 1 CAPSULE BY MOUTH EVERY DAY active Not Available Not Available No t Available nystatin- triamcino lone 100,000 unit/g-0. 1 % topical cream APPLY TO AFFECTED AREA TWICE A DAY IN THE MORNING AND IN THE EVENING active Not Available Not Available No t Available fluoxetin e 10 mg capsule TAKE 1 CAPSULE BY MOUTH EVERY DAY 12/19 completed Not Available Not Available Not Available aspirin 81 mg chewable tablet Chew 1 tablet every day by oral route. 2022 active Not Available Not Available Not Avai lable bisacodyl 5 mg tablet,de layed release 4 TABLETS ORALLY DIRECTED 1 DAY active Not Available Not Available No t Available lisinopri l 5 mg tablet TAKE 1 TABLET BY MOUTH EVERY DAY 05/12 completed Not Available Not Available Not Available mupirocin 2 % topical ointment APPLY A SMALL AMOUNT TO THE AFFECTED AREA BY TOPICAL ROUTE 3 TIMES PER DAY FOR 1 WEEK. active Not Available Not Available No t Available diclofena c sodium 50 mg tablet,de layed release TAKE 1 TABLET BY MOUTH 2 TIMES A DAY FOR 14 DAYS. active Not Available Not Available No t Available propranol ol ER 120 mg capsule,2 4 hr,extend ed release TAKE ONE CAPSULE BY MOUTH EVERY DAY 03/16 completed Not Available Not Available Not Available ibuprofen 600 mg tablet TAKE 1 TABLET (600 MG) BY MOUTH EVERY 6 (SIX) HOURS IF NEEDED FOR MILD PAIN FOR UP TO 20 DOSES. active Not Available Not Available No t Available levofloxa brittany 500 mg tablet 07/11 completed Not Available Not Available Not Available levofloxa brittany 750 mg tablet TAKE 1 TABLET BY MOUTH EVERY DAY FOR 5 DAYS 06/07 completed Not Available Not Available Not Available hydromorp samantha 4 mg tablet TAKE 1 TO 1 & 1/2 TABLETS BY MOUTH 3 TIMES A DAY NEEDED 09/04 completed Not Available Not Available Not Available ondansetr on 4 mg disintegr ating tablet TAKE 1 TABLET BY MOUTH EVERY 8 HOURS NEEDED 01/08 completed Not Available Not Available Not Available topiramat e 100 mg tablet TAKE 1 TABLET BY MOUTH TWICE A DAY 01/08 completed Not Available Not Available Not Available fluoxetin e 20 mg capsule TAKE 1 CAPSULE BY MOUTH EVERY DAY 2024 active Not Available Not Available Not Avai lable naratript an 1 mg tablet TAKE 1 TABLET BY MOUTH TWICE WEEKLY active Not Available Not Available No t Available naratript an 2.5 mg tablet TAKE 1 TABLET BY MOUTH EVERY DAY FOR 30 DAYS active Not Available Not Available No t Available Adult Aspirin EC Low Strength 81 mg tablet,de layed release 06/07 completed bleeding too much with LOC. Not Available Not Available Not Available ipratropi um bromide 21 mcg (0.03 %) nasal spray INSTILL 2 SPRAYS IN EACH NOSTRIL TWICE A DAY 2024 active Not Available Not Available Not Avai lable naproxen 500 mg tablet TAKE 1 TABLET BY MOUTH TWICE A DAY NEEDED FOR PAIN FOR 10 DAYS 06/07 completed Not Available Not Available Not Available diazepam 5 mg tablet 05/18 completed not takin 10/12/21 huma Not Available Not Available Not Available metoclopr amide 10 mg tablet 05/25 completed Not Available Not Available Not Available oxycodone 5 mg tablet TAKE 1/2 TO 1 TAB EVERY 6 HOURS IF NEEDED. 10/25 completed Not Available Not Available Not Available magnesium 200 mg tablet TAKE 1 TABLET BY MOUTH TWICE A DAY 01/08 completed Not Available Not Available Not Available cyclobenz aprine 5 mg tablet TAKE 1 TABLET BY MOUTH EVERY 8 HOURS NEEDED FOR PAIN (7-10) FOR 5 DAYS 06/07 completed Not Available Not Available Not Available topiramat e 50 mg tablet TAKE 1 TABLET BY MOUTH TWICE A DAY 09/28 completed no longer taking 03/15/23 Not Available Not Available Not Available Centrum Silver active Not Available Not Available Not Available Adela Plus Extra Strength active 2 PO BID Not Available Not Available No t Available levetirac etam 1,000 mg tablet Take 1 tablet 3 times a day by oral route. 10/25 completed Not Available Not Available Not Available Excedrin Extra Strength prn active Not Available Not Available Not Available diclofena c 1 % topical gel APPLY 2 GRAMS TO THE AFFECTED AREA(S) BY TOPICAL ROUTE 4 TIMES PER DAY active Not Available Not Available No t Available GaviLyte- G 236 gram-22.7 4 gram-6.74 gram-5.86 gram oral solution 08/21 completed Not Available Not Available Not Available Prolia 60 mg/mL subcutane ous syringe Inject 1 mL by subcutan eous route. active every 6 months. -by jacobo barreto Not Available Not Available Not Available Men's 50 Plus Vitapak active Not Available Not Available Not Available Vitamin D3 50 mcg (2,000 unit) capsule TAKE 1 CAPSULE BY MOUTH EVERY DAY BEFORE A MEAL active Not Available Not Available No t Available abiratero ne 250 mg tablet Take 4 tablets every day by oral route. 09/04 completed Not taking 06/27/23 cc Not Available Not Available Not Available Xtandi 40 mg capsule Take 2 capsules every day by oral route. 01/[address] Maier Not Available Not Available Not Available Eliquis 5 mg tablet TAKE 1 TABLET BY MOUTH TWICE A DAY 04/23 completed d/c on 04/11/23 per hem/onc note - Not taking tv Not Available Not Available Not Available Eligard (6 month) 45 mg q 6 mo 01/08 completed not sure taking. Not Available Not Available Not Available Flucelvax Quad 8253-1712 (PF) 60 mcg (15 mcg x 4)/0.5 mL IM syringe TO BE ADMINIST ERED BY [employer] FOR IMMUNIZA TION 11/05 completed Not Available Not Available Not Available magnesium 200 mg (as magnesium oxide) tablet Take 1 tablet twice a day by oral route. 06/18 completed Not Available Not Available Not Available Fluad 2017- 65yr up(PF)45 mcg(15 mcgx3)/0. 5 mL intramusc ular syringe TO BE ADMINIST ERED BY [employer] FOR IMMUNIZA TION 12/31 completed Not Available Not Available Not Available Emgality 120 mg/mL subcutane ous syringe INJECT 1 ML SUBCUTAN EOUS MONTHLY 30 DAYS 01/08 completed Not Available Not Available Not Available Vitals Date Recorded Body height Heart rate Systolic blood pressure Diastolic blood pressure Provider Name and Address Organization Details Last Updated DateTime 11/12/2024 173.99 cm 94 /min 120 mm[Hg] 85 mm[Hg] Anastacia Lechuga [facility] 11/12/2024 12:22:57 Date Recorded Body height Body mass index (BMI) Body weight Heart rate Oxygen saturation Oxygen saturation in Arterial blood by Pulse oximetry Systolic blood pressure Diastolic blood pressure Provider Name and Address Organization Details Last Updated DateTime 5 173.99 cm 34.6 kg/m2 680045. 84 g 68 /min 98 % 98 % 152 mm[Hg] 92 mm[Hg] Dorcas Trujillo CMA [facility] 5 09:58:10 Date Recorded Body height Body mass index (BMI) Body weight Heart rate Systolic blood pressure Diastolic blood pressure Provider Name and Address Organization Details Last Updated DateTime 5 173.99 cm 35.1 kg/m2 871557. 61 g 76 /min 136 mm[Hg] 76 mm[Hg] Lisandra Gunn [facility] 5 13:35:35 Date Recorded Body height Provider Name an d Address Organization Details Last Updated DateTime 01/14/2025 173.99 cm Anastacia Lechuga [facility] 01/14/2025 09:53:42 Date Recorded Body height Provider Name an d Address Organization Details Last Updated DateTime 03/18/2025 173.99 cm Anastacia Lechuga [facility] 03/18/2025 14:07:16 Social History Question Answer Notes LastModified by Organizat ion Details LastModified Time Tobacco Smoking Status Never Smoker Not Available [facility] 08/31/2011 04:52:47 Do You Wear A Helmet When Biking? No N/a Information not available 02/24/2015 What Is Your Level Of Caffeine Consumption? None 4-5 Diet Coke Per Day Information not available 02/24/2015 How Much Tobacco Do You Chew? None Information not available 02/24/2015 What Type Of Diet Are You Following? REGULAR Information not available 05/24/2012 Which Illicit Or Recreational Drugs Have You Used? 0 Information not available 02/24/2015 Education 12 Information no t available 02/24/2015 What Is The Highest Grade Or Level Of School You Have Completed Or The Highest Degree You Have Received? [id number] [email or web address] Information not available 09/04/2023 How Many Days In The Past Year Have You Had A Heavy Drinking Consumption (4+ Female, 5+ Male)? 0 Information not available 02/24/2015 Are There Any Guns Present In Your Home? No Information not available 02/24/2015 Do You Use Insect Repellent Routinely? No Information not available 12/26/2023 Live Alone Or With Others? With Others Information not available 02/24/2015 Patient Has Health Care Proxy Signed And In Chart Yes [email or web address] Information not available 05/24/2012 MOLST Form Signed And In Chart 05/16/2021 Information not available 06/03/2021 CCM Consent Discussion 11/05/2017 Information not available 11/09/2017 Marital Status Florencia- 1994 [facility] Information not available 10/29/2009 Mosquito Repellent Used Routinely No Information not available 02/24/2015 What Was The Date Of Your Most Recent Tobacco Screening? 12/19/2024 Information not available 12/19/2024 How Many Children Do You Have? 0 Information not available 02/24/2015 What Is Your Relationship Status? [email or web address] Information not available 07/20/2023 Do You Use Your Seat Belt Or Car Seat Routinely? Yes Information not available 06/07/2022 Seat Belts Used Routinely Yes Information not available 02/24/2015 Smoke Alarm In Home Yes Information not available 02/24/2015 Do You Have Smoke And Carbon Monoxide Detectors In Your Home? Yes Information not available 06/07/2022 Are You Passively Exposed To Smoke? Yes Information not available 06/07/2022 How Much Tobacco Do You Smoke? No 17 Information not available 08/31/2011 What Types Of Sporting Activities Do You Participate In? Softball 17 Information not available 08/31/2011 General Stress Level Low Information not available 02/24/2015 Do You Use Sunscreen Routinely? Yes Information not available 02/24/2015 Sex: Unknown Functional Status Question Answer Note LastModified by Organizat ion Details LastModified Time Do you use any illicit or recreational drugs? No Information not available 12/26/2023 Do you or have you ever used any other forms of tobacco or nicotine? No Information not available 12/26/2023 What is your level of alcohol consumption? None [email or web address] Information not available 12/24/2012 Do you or have you ever used smokeless tobacco? Never used smokeless tobacco Information not available 03/11/2021 Are you currently employed? No Information not available 12/26/2023 What is your occupation? Retired-[employer] [employer] Information not available 03/15/2021 Do you or have you ever used e-cigarettes or vape? Never used electronic cigarettes Information not available 03/11/2021 What is your exercise level? Moderate Information not available 09/04/2023 Mental Status None recorded. Family History Relationship Description Onset Age of this Age Resolved Age Notes LastModified by Organization Details LastModified Time Mother Diabetes mellitus also heart diseas e [facility] Not available 11/12/2019 12:01:02 Mother Cerebrovascu lar accident in her 40's [facility] Not available 03/15/2021 16:37:28 Brother Problem [facility] Not availabl e 11/12/2019 12:01:17 Brother Leukemia (morphologic abnormality) Germán [facility] Not available 10/2020 16:37:01 Father Malignant neoplastic disease stomac h cancer r [facility] Not available 11/12/2019 12:00:22 Medical History Condition Response NEUROLOGIC Y Transient Ischemic Attack Y EYE Y Hypertension Y Immunizations Vaccine Type Date Status Note Provider Nam e and Address Organization Details Recorded Time Influenza, split virus, trivalent, preservative 1 completed Not Available [facility] 11/01/2019 02:18:14 influenza, unspecified formulation 7 completed Not Available [facility] 11/26/2023 17:23:20 influenza, unspecified formulation 7 completed Not Available [facility] 11/26/2023 17:23:20 influenza, unspecified formulation 7 completed Not Available [facility] 11/26/2023 17:23:20 Td(adult) unspecified formulation 8 completed Not Available [facility] 11/26/2023 17:23:21 influenza, unspecified formulation 8 completed Not Available [facility] 11/26/2023 17:23:20 influenza, seasonal, intradermal, preservative free 2 completed Not Available [facility] 11/01/2019 02:18:38 Influenza, split virus, trivalent, preservative 9 completed Not Available [facility] 11/01/2019 02:17:26 Tdap 3 completed Not Available [facility] 11/01/2019 02:26:36 Influenza, split virus, quadrivalent, PF 3 completed Not Available [facility] 11/01/2019 02:37:08 Novel [id number] 0 completed Not Available [facility] 11/01/2019 02:32:30 Influenza, split virus, trivalent, PF 4 completed Not Available [facility] 11/01/2019 02:33:40 Influenza, split virus, quadrivalent, PF 5 completed Not Available [facility] 11/01/2019 02:20:10 Influenza, split virus, quadrivalent, PF 6 completed Not Available [facility] 11/01/2019 02:20:45 Pneumococcal conjugate PCV 13 9 completed Not Available [facility] 11/01/2019 02:23:33 Influenza, high-dose, trivalent, PF 9 completed Not Available [facility] 11/01/2019 02:29:52 Influenza, split virus, quadrivalent, preservative 7 completed JIGNESH Edge, [facility] 07/24/2024 10:26:55 zoster, unspecified formulation 7 completed Not Available [facility] 11/26/2023 17:23:20 influenza, unspecified formulation 8 completed Not Available [facility] 11/26/2023 17:23:20 Influenza, high-dose, quadrivalent, PF 0 completed CORKY Kc null, [facility] 08/07/2020 09:38:52 Influenza, high-dose, quadrivalent, PF 1 [facility]/27/2021 14:51:38 Influenza, split virus, trivalent, preservative 0 completed Not Available [facility] 11/01/2019 02:17:47 Influenza, high-dose, quadrivalent, PF 2 completed Svetlana Woodruff MD [address] [place] [address], [phone], [facility] 07/05/2022 18:47:59 COVID-19, mRNA, LNP-S, PF, 100 mcg/0.5mL dose or 50 mcg/0.25mL dose 1 completed Not Available [facility] 11/26/2023 17:23:20 COVID-19, mRNA, LNP-S, PF, 100 mcg/0.5mL dose or 50 mcg/0.25mL dose 1 completed Not Available [facility] 11/26/2023 17:23:20 Influenza, high-dose, quadrivalent, PF 3 completed Svetlana Woodruff MD [address] [place] [address], [phone], [facility] 07/20/2023 10:22:39 Influenza, high-dose, trivalent, PF 4 completed Svetlana Woodruff MD [address] [place] [address], [phone], [facility] 07/01/2024 15:16:06 Td (adult), 2 Lf tetanus toxoid, preservative free, adsorbed 4 completed BAILEY Pacheco [address] [place] [address], [phone], [facility] 08/23/2024 10:58:43 COVID-19, mRNA, LNP-S, PF, 100 mcg/0.5mL dose or 50 mcg/0.25mL dose 1 completed Not Available [facility] 11/26/2023 17:23:20 COVID-19, mRNA, LNP-S, PF, eleazar-sucrose, 30 mcg/0.3 mL 4 completed [facility] 06/20/2024 11:56:52 Influenza, MDCK, quadrivalent, PF 7 completed JIGNESH Edge, [facility] 07/24/2024 10:26:55 Past Encounters Encounter ID Performer Location Encounter Start Date Encounter Closed Date Diagnosis/Indication Diagnosis SNOMED-CT Code Diagnosis ICD10 Code Diagnosis Note [id number] Theresa Prakash NP , [facility], OFFICE [address] [facility] [place] [address] 12/28/2006 15:35:21 12/28/2006 16:20:03 [id number] [facility] FLU CLINIC FP, [facility], OFFICE [address] [facility] [place] [address] 08/21/2007 08:35:00 11/04/2008 02:02:29 [id number] Rajan Graff MD , [facility], OFFICE [address] [facility] [place] [address] 08/30/2007 10:29:11 11/04/2008 02:02:29 [id number] [facility] LAB LAB - [address] on [facility] [place] [address] 09/25/2007 08:23:28 09/25/2007 08:39:19 [id number] Rajan Graff MD , [facility], OFFICE [address] [facility] [place] [address] 03/20/2008 08:45:05 11/04/2008 02:02:29 [id number] Rajan Graff MD , [facility], OFFICE [address] [place] [address] 03/21/2008 08:58:28 11/04/2008 02:02:29 [id number] Rajan Graff MD , [facility], OFFICE [address] [facility] [place] [address] 03/23/2008 09:09:03 11/04/2008 02:02:29 [id number] Rajan Graff MD , [facility], OFFICE [address] [facility] [place] [address] 08/31/2008 09:24:45 11/04/2008 02:02:29 [id number] [facility] - [facility] [address] [facility] on [facility] [place] [address] 09/01/2008 08:17:15 09/01/2008 08:19:46 [id number] Svetlana Woodruff MD , [facility], OFFICE [address] [facility] [place] [address] 11/04/2008 14:36:15 11/17/2008 02:02:00 [id number] Svetlana Woodruff MD , [facility], OFFICE [address] [facility] [place] [address] 11/18/2008 08:46:15 11/19/2008 16:05:24 [id number] Svetlana Woodruff MD , [facility], OFFICE [address] [place] [address] 12/28/2008 09:27:01 12/30/2008 13:40:01 [id number] Svetlana Woodruff MD , [facility], OFFICE [address] [facility] [place] [address] 03/01/2009 09:56:33 03/03/2009 11:06:43 [id number] [facility] FLU CLINIC , [facility], OFFICE [address] [facility] [place] [address] 09/28/2009 07:32:51 09/30/2009 14:54:40 [id number] Svetlana Woodruff MD , [facility], OFFICE [address] [facility] [place] [address] 10/29/2009 13:56:47 11/03/2009 10:41:39 [id number] Svetlana Woodruff MD , [facility], OFFICE [address] [facility] [place] [address] 11/26/2009 13:35:33 11/30/2009 11:15:04 [id number] [facility] [employer] Radiology , [facility] [address] [facility] [place] [address] 11/26/2009 14:22:11 11/29/2009 11:37:20 [id number] Svetlana Woodruff MD , [facility], OFFICE [address] [facility] [place] [address] 12/10/2009 09:53:06 12/16/2009 09:03:11 [id number] Frandy Balalrd DPT Physical Therapy, [facility] [address] [facility] [place] [address] 12/13/2009 09:33:44 12/13/2009 16:48:04 [id number] Frandy Ballard DPT Physical Therapy, [facility] [address] [facility] [place] [address] 12/30/2009 15:26:33 12/31/2009 11:40:39 [id number] CLAUDIA BrowningT Physical Therapy, [facility] [address] [facility] [place] [address] 01/06/2010 15:23:51 01/07/2010 10:10:12 [id number] [facility] , [facility], OFFICE [address] [facility] [place] [address] 07/20/2010 07:38:55 07/25/2010 15:40:50 [id number] Svetlana Woodruff MD , [facility], OFFICE [address] [facility] [place] [address] 09/02/2010 09:24:28 09/07/2010 10:20:58 [id number] Natalia Cm MD , [facility], OFFICE [address] [facility] [place] [address] 02/10/2011 11:48:30 02/14/2011 14:09:33 [id number] CLAUDIA BrowningT Physical Therapy, [facility] [address] [facility] [place] [address] 02/15/2011 16:04:35 02/16/2011 12:39:19 [id number] CLAUDIA BrowningT Physical Therapy, [facility] [address] [facility] [place] [address] 02/20/2011 08:24:19 02/20/2011 09:13:23 [id number] MD YESSI Mckay, [facility], OFFICE [address] [facility] [place] [address] 02/20/2011 10:41:56 02/23/2011 14:38:48 [id number] CLAUDIA BrowningT Physical Therapy, [facility] [address] [facility] [place] [address] 02/23/2011 11:53:05 02/23/2011 15:38:00 [id number] Svetlana Woodruff MD , [facility], OFFICE [address] [facility] [place] [address] 03/20/2011 09:18:31 03/22/2011 08:05:00 [id number] Svetlana Woodruff MD , [facility], OFFICE [address] [place] [address] 03/20/2011 09:55:32 03/22/2011 08:15:54 [id number] [facility] , [facility] [address] [place] [address] 03/20/2011 10:12:43 03/21/2011 11:45:14 [id number] Svetlana Woodruff MD , [facility], OFFICE [address] [place] [address] 04/10/2011 08:21:52 04/10/2011 09:29:40 [id number] Svetlana Woodruff MD , [facility], OFFICE [address] [facility] [place] [address] 04/10/2011 09:18:34 04/10/2011 09:29:46 [id number] [facility] , [facility], OFFICE [address] [facility] [place] [address] 08/02/2011 07:15:06 08/03/2011 14:46:05 [id number] Svetlana Woodruff MD , [facility], OFFICE [address] [facility] [place] [address] 12/18/2011 08:48:52 12/18/2011 09:37:24 [id number] Svetlana Woodruff MD , [facility], OFFICE [address] [facility] [place] [address] 05/24/2012 13:37:35 05/24/2012 14:37:04 [id number] [facility] , [facility] OFFICE [address] [facility] [place] [address] 06/27/2012 07:11:50 06/27/2012 15:31:09 [id number] Svetlana Woodruff MD , [facility], OFFICE [address] [place] [address] 12/24/2012 15:43:52 12/24/2012 16:17:12 [id number] Svetlana Woodruff MD , [facility], OFFICE [address] [place] [address] 07/29/2013 13:41:07 07/29/2013 14:36:06 Administration of diphtheria, pertussis, and tetanus vaccine 255284876 Influenza vaccine needed 8690904066 106 Benign ess ential hypertension 5633591 Pure hypercholesterolemia 054207239 History of transient ischemic attack 644106431 Impaired f asting glycemia 748259015 [facility] examination 727085814 see Risk Assesment and Lifestyle Change Couseling section above [id number] Svetlana Woodruff MD , [facility], OFFICE [address] [place] [address] 6 01/30/2014 10:53:40 01/30/2014 11:36:22 Benign essential hypertension 0594363 Blood pressure at goal Pure hypercholesterolemia 003901683 [id number] Svetlana Woodruff MD , [facility], OFFICE [address] [place] [address] 6 07/31/2014 08:29:22 07/31/2014 09:17:39 Adult health examination 361112658 see Risk Assessment and Lifestyle Change Counseling section above Counseling 126153092 Influenza vaccine needed 3158352612 106 Benign ess ential hypertension 0079752 Impaired f asting glycemia 761978478 Mixed hyperlipidemia 147783719 Resting tremor 83668482 [id number] Svetlana Woodruff MD , [facility], OFFICE [address] [place] [address] 6 11/18/2014 13:25:54 11/18/2014 14:15:53 Right lower quadrant pain 472129127 [id number] Svetlana Woodruff MD , [facility], OFFICE [address] [place] [address] 6 02/24/2015 08:47:55 02/24/2015 09:43:29 Varicella vaccination 12293666 Benign ess ential hypertension 7568108 Pure hypercholesterolemia 509150582 History of transient ischemic attack 005637776 Epidermoid cyst of skin 764603753 [id number] Rajan Graff MD , [facility], OFFICE [address] [place] [address] 6 08/18/2015 07:18:16 08/18/2015 16:11:21 Active or passive immunization 124921927 Z23 [id number] Svetlana Woodruff MD , [facility], OFFICE [address] [place] [address] 6 09/07/2015 08:37:35 09/07/2015 09:25:20 Screening for disorder 485627778 Z11.59 Headache 22119072 R51 [id number] Svetlana Woodruff MD , [facility], OFFICE [address] [place] [address] 6 10/27/2015 16:07:23 10/27/2015 16:50:28 Adult health examination 858259890 Z00.00 see Risk Assessment and Lifestyle Change Counseling section above Benign ess ential hypertension 7665158 I10 History of transient ischemic attack 784974034 Z86.73 [id number] Svetlana Woodruff MD , [facility], OFFICE [address] [place] [address] 6 05/29/2016 09:12:00 05/29/2016 10:15:41 Benign essential hypertension 0616300 I10 Impaired f asting glycemia 383208968 R73.01 [id number] Rajan Graff MD , [facility], OFFICE [address] [place] [address] 6 07/12/2016 14:16:29 07/12/2016 14:37:42 Active or passive immunization 702512258 Z23 [id number] Svetlana Woodruff MD , [facility], OFFICE [address] [place] [address] 6 10/30/2016 11:05:46 10/30/2016 11:59:05 Benign essential hypertension 4078183 I10 Pure hypercholesterolemia 898532644 E78.00 Impaired f asting glycemia 066198205 R73.01 Adult [facility] examination 868243965 Z00.00 see Risk Assessment and Lifestyle Change Counseling section above [id number] Svetlana Woodruff MD , [facility], OFFICE [address] [place] [address] 6 02/06/2017 15:12:08 02/06/2017 15:39:34 Unilateral hearing loss 80141140 H91.92 Pain in lower limb 52399 006 M79.651 Essential tremor 9640109 09 G25.0 [id number] Oxana Burgess Ms, PT Physical Therapy, [address] [address] 6 02/19/2017 08:59:56 02/19/2017 13:56:03 Pain in right lower limb 121595163 M79.874 [id number] Oxana Burgess Ms, PT Physical Therapy, [address] [address] 6 02/28/2017 08:25:03 02/28/2017 13:18:36 Pain in right lower limb 698350677 M79.420 [id number] Svetlana Woodruff MD , [facility], OFFICE [address] [place] [address] 6 03/09/2017 08:41:04 03/09/2017 09:20:52 Onychomycosis 855485773 B35.1 Essential tremor 3305044 09 G25.0 Dysfunctio n of eustachian tube 05084588 H69.93 Benign ess ential hypertension 4273991 I10 [id number] Svetlana Woodruff MD , [facility], OFFICE [address] [place] [address] 6 03/16/2017 10:28:47 03/16/2017 11:15:22 Essential tremor 902245131 G25.0 Benign ess ential hypertension 6272181 I10 [id number] Svetlana Woodruff MD , [facility], OFFICE [address] [place] [address] 6 04/04/2017 08:25:40 04/04/2017 08:55:06 Essential tremor 775929988 G25.0 Benign ess ential hypertension 6156249 I10 [id number] Svetlana Woodruff MD , [facility], OFFICE [address] [place] [address] 6 05/04/2017 09:35:53 05/04/2017 10:19:31 Unintentional weight loss 205071270 R63.4 C-reactive protein outside reference range 656759759 R79.82 Hereditary essential tremor 999912864 G25.0 Dysfunctio n of eustachian tube 21785831 H69.93 [id number] Svetlana Woodruff MD , [facility], OFFICE [address] [place] [address] 6 11/05/2017 11:07:39 11/05/2017 12:21:41 Adult health examination 662634326 Z00.00 see Risk Assessment and Lifestyle Change Counseling section above Counseling 275121263 Z71 .9 Benign ess ential hypertension 1535484 I10 Blood pressure at goal Advance di rective discussed with patient 229760025 Z71.89 Screening for disorder 647059971 Z11.59 Essential tremor 9823644 01 G25.0 History of transient ischemic attack 318018001 Z86.73 Impaired f asting glycemia 424382389 R73.01 [id number] Svetlana Woodruff MD , [facility], OFFICE [address] [place] [address] 6 12/10/2017 11:41:48 12/10/2017 12:35:36 Benign essential hypertension 1884296 I10 Blood pressure at goal History of transient ischemic attack 323821703 Z86.73 Impaired f asting glycemia 458339473 R73.01 Prostate s pecific antigen above reference range 714921936 R97.20 [id number] Svetlana Woodruff MD , [facility], OFFICE [address] [place] [address] 6 12/31/2017 09:28:44 12/31/2017 11:53:13 Malignant neoplasm of prostate 502673688 C61 History of transient ischemic attack 646060232 Z86.73 [id number] Svetlana Woodruff MD , [facility], OFFICE [address] [place] [address] 6 05/15/2018 11:41:27 05/15/2018 13:01:39 Headache 07336091 R51 Malignant neoplasm of prostate 834408841 C61 [id number] Svetlana Woodruff MD , [facility], OFFICE [address] [place] [address] 6 05/31/2018 09:41:39 05/31/2018 10:17:50 Benign essential hypertension 6660988 I10 Blood pressure at goal of less than 140/90 History of transient ischemic attack 864644489 Z86.73 Malignant neoplasm of prostate 920144773 C61 Migraine 96057003 G43.90 9 [id number] Svetlana Woodruff MD , [facility], OFFICE [address] [place] [address] 6 06/05/2018 14:56:28 06/05/2018 15:58:38 Elliott hematuria 357117831 R31.0 [id number] Svetlana Woodruff MD , [facility], OFFICE [address] [place] [address] 6 11/11/2018 11:10:57 11/11/2018 12:03:47 Adult health examination 556241436 Z00.00 see Risk Assessment and Lifestyle Change Counseling section above Counseling 274203850 Z71 .9 Depression screening 171 145072 Z13.89 depression screening tool administer ed, entered into emr, scored and discussed Active or passive immunization 636375607 Z23 Headache 77095245 R51 Screening for malignant neoplasm of colon 490426825 Z12.11 Referral for a DIRECT booked colonoscop y. This patient is a healthy ASA Class 1 or 2 patient (only mild systemic disease), or a STABLE, well controlled insulin dependent diabetic. They do not have serious cardiac disease ie MA/angiopl asty within 1 year, symptomati c CHF; renal failure with CKD 4 or 5; take Coumadin, Plavix, Aggrenox, etc. Epidermoid cyst of skin 276751167 L72.0 reassuranc e [id number] Natalia Cm MD , [facility], OFFICE [address] [place] [address] 6 12/11/2018 09:38:11 12/11/2018 12:09:47 Senile hyperkeratosis 952982768 L82.1 Seborrheic Keratosis: Discussed one of the most common noncancero us skin growths in older adults. A seborrheic keratosis usually appears as a brown, black or light gutierrez growth on the face, chest, shoulders or back. The growth has a waxy, scaly, slightly elevated appearance . Dr. Woodruff also took a look and confirmed it. Handout provided. [id number] Svetalna Woodruff MD , [facility], OFFICE [address] [place] [address] 6 12/31/2018 14:00:23 12/31/2018 16:44:14 Influenza caused by Influenza A virus 125258682 J09.X2 Impairment of balance 38 2076256 R26.89 [id number] Svetlana Woodruff MD , [facility], OFFICE [address] [place] [address]71[address] 6 05/16/2019 07:56:39 05/16/2019 08:35:49 Malignant neoplasm of prostate 910091396 C61 Benign ess ential hypertension 7758765 I10 Blood pressure at goal of less than 140/90 Abnormal weight gain 161 963304 R63.5 Epidermoid cyst of skin 964122397 L72.0 [id number] Svetlana Woodruff MD , [facility], OFFICE [address] [place] [address] 6 06/18/2019 08:31:57 06/18/2019 09:15:10 Abnormal gait due to impairment of balance 472471379 R26.89 Essential hypertension 19322777 I10 At goal of less than 130/80, continue meds. Headache 13271423 R51 Can use tylenol. Use Mg a dn riboflavin if needed. [id number] Svetlana Woodruff MD , [facility], OFFICE [address] [place] [address] 6 07/11/2019 13:23:18 07/11/2019 13:55:37 Active or passive immunization 930471533 Z23 Malignant neoplasm of prostate 574724191 C61 Acute nont raumatic kidney injury 8952590225 90423 N17.9 [id number] Svetlana Woodruff MD , [facility], OFFICE [address] [place] [address]85[address] 6 08/18/2019 11:42:08 08/18/2019 12:20:02 Malignant neoplasm of prostate 207765422 C61 Fatigue 24203533 R53.83 Dyspnea on exertion 6084 5006 R06.09 [id number] Svetlana Woodruff MD , [facility], OFFICE [address] [place] [address] 6 09/17/2019 09:42:34 09/17/2019 14:19:00 Cough 38318867 R05 rec: robitussin DM Benign ess ential hypertension 6139946 I10 Blood pressure at goal of less than 140/90 Migraine 82732313 G43.90 9 continue magnesium Mixed hyperlipidemia 267 953046 E78.2 [id number] Svetlana Woodruff MD , [facility], OFFICE [address] [place] [address]37[address] 6 11/12/2019 11:09:30 11/12/2019 12:05:13 Adult health examination 516046447 Z00.00 see Risk Assessment and Lifestyle Change Counseling section above Counseling 346064067 Z71 .9 including cardiovasc ular risk reduction counseling Depression screening 171 463586 Z13.89 depression screening tool administer ed, entered into emr, scored and discussed Advance di rective discussed with patient 840010289 Z71.89 Benign ess ential hypertension 2429088 I10 Blood pressure at goal of less than 130/80. discussed diet Malignant neoplasm of urinary bladder 739807827 C67.9 continue seeing urologist and taking chem drug- [place] de [id number] Svetlana Woodruff MD , [facility], OFFICE [address] [place] [address]40[address] 6 02/17/2020 17:01:08 02/18/2020 10:18:10 Dyspnea on exertion 14895411 R06.09 resolved, restrictio n on PFT, nl DLCO so extrinsive issue. Malignant neoplasm of prostate 259179632 C61 discusse new medication , Xtandi-and rogen receptor antagonist , stay on the tamsulosin - helping urination/ nocturia Benign ess ential hypertension 5844911 I10 Blood pressure not at goal of less than 130/80. discussed diet go to 10 mg lisnopril. continue tamsulosin . watch the GILMORE. Nocturia 781688715 R35.1 [id number] Svetlana Woodruff MD , [facility], OFFICE [address] [place] [address]40[address] 6 05/12/2020 10:56:54 05/13/2020 15:30:19 Essential hypertension 24756446 I10 At goal of less than 130/80, continue meds. 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 Low back pain 462405838 M54.5 want to reveiw the spine x-ray report from ER. [id number] Svetlana Woodruff MD , [facility], OFFICE [address] [place] [address] 16165[address]186 6 07/26/2020 10:46:02 07/28/2020 10:48:38 Benign essential hypertension 0113696 I10 Blood pressure not at goal of less than 130/80.rec recheck in 1-2 month Malignant neoplasm of urinary bladder 615095484 C67.9 continue seeing urologist and taking chem drug- [place] de [id number] Svetlana Woodruff MD , [facility], OFFICE [address] [place] [address]73[address]931 6 08/07/2020 06:48:08 08/09/2020 11:18:30 Active or passive immunization 025028519 Z23 [id number] Svetlana Woodruff MD , [facility], OFFICE [address] [place] [address] 70683-635 6 11/12/2020 08:03:51 11/15/2020 10:20:25 Near syncope 544996660 R55 suspected vasovagal. continue lisinopril Headache 56282275 R51.9 for years. worse w/o sleep. Riboflavin 200 mg. . contniue magnesium and D3. Malignant neoplasm of urinary bladder 914197009 C67.9 continue seeing urologist and taking chem drug- continue xeeing uronolgy. Consider getting the colonoscop y when things are more stable. Malignant neoplasm of prostate 613377924 C61 continue urol. [id number] Svetlana Woodruff MD , [facility], OFFICE [address] [place] [address] 47083-761 6 12/27/2020 09:31:37 12/28/2020 09:55:33 Essential hypertension 10835966 I10 At goal of less than 130/80, continue meds. recheck labs for the potassium, if going up will need to stop lisinopril and use Calcim channel rigoberto. Diuretic not aldridge given his already frequent urination Malignant neoplasm of prostate 890619470 C61 continue urol. Malignant neoplasm of urinary bladder 304437852 C67.9 continue seeing urologist and taking chem drug- continue seeing uronolgy. Consider getting the colonoscop y when things are more stable. History of transient ischemic attack 544176195 Z86.73 contninue aspirin Hypokalemia 69650404 E87 .6 recheck lab. will get labs sent to me. [id number] Svetlana Woodruff MD , [facility], OFFICE [address] [place] [address] 03/15/2021 15:41:42 03/18/2021 14:57:37 Adult health examination 442636035 Z00.00 see Risk Assessment and Lifestyle Change Counseling section above Eat more meals less snacks. Counseling 094311361 Z71 .9 including cardiovasc ular risk reduction counseling . aspirin therapy( which should be restarted given CVA Depression screening 171 185036 Z13.31 depression screening tool administer ed, entered into emr, scored and discussed. Screening for alcohol abuse 903719941 Z13.39 Essential hypertension 24475912 I10 At goal of less than 130/80, continue meds. rechecked labs for the potassium, 5.8 . stop lisinopril . If BP rises, add calcium channel rigoberto. Osteopenia 146087629 M85 .80 continue vit D and dietary calcium( milk). Malignant neoplasm of prostate 402766383 C61 continue urol. Malignant neoplasm of urinary bladder 898861956 C67.9 continue seeing urologist and taking chem drug- continue seeing uronolgy. Consider getting the colonoscop y when things are more stable. Fatigue 85480928 R53.83 Abnormal g ait due to impairment of balance 277782111 R26.89 see PT. Drug-induc ed hyperkalemia 759378718 E87.5 as above. [id number] Svetlana Woodruff MD , [facility], OFFICE [address] [place] [address] 38401-533 6 04/04/2021 08:31:04 04/06/2021 12:15:26 Essential hypertension 09532982 I10 Not at goal of less than 130/80, Lisinopril was discontinu ed for the elevated potassium. Since his BUN runs in the low to mid 30s probably a water pill is not the next option. Given these 2 factors would move to a calcium channel rigoberto. Will start with a low dose of 2.5 mg amlodipine and go up to 5 mg next time. Headache 12342850 R51.9 for years. worse w/o sleep. Riboflavin 200 mg. . contniue magnesium and D3. better Drug-induc ed hyperkalemia 233876579 E87.5 resovled, see above. [id number] Oxana Burgess Ms, PT Physical Therapy, [address] [address] 6 04/27/2021 11:30:07 04/27/2021 16:14:26 Abnormal gait due to impairment of balance 718622114 R26.89 [id number] Svetlana Woodruff MD , [facility], OFFICE [address] [place] [address] 25283-453 6 06/01/2021 09:56:06 06/01/2021 20:32:13 Abnormal gait due to impairment of balance 011791329 R26.89 see PT. Essential hypertension 47758845 I10 With regard to blood pressure we had stopped his lisinopril in March for an elevated potassium but it appears he is back on it and a low dose amlodipine 2.5 which is down from the 5 mg I put him on a little of the lisinopril . I am not sure why it was all changed but would like to check his labs on the lisinopril and if the potassium is fine we will leave it alone and if it is high we will go back to the 5 mg amlodipine and stop the lisinopril . BP too low. stop the 2.5 amlodipine . and cont lisin 10 . needs new flomax too ADDENDUM 6 PM. K=5.6 AND HAD BEEN HIGH RPEVIOUSLY . WILL D/C LISINOPRIL . AND JUST USE 5 MG AMLODIPINE . Malignant neoplasm of prostate 531530264 C61 and BPH, will do the flomax continueat ion and using BID xtandi [id number] Svetlana Woodruff MD , [facility], OFFICE [address] [place] [address] 01440-660 6 06/17/2021 14:05:20 06/17/2021 20:17:00 Headache 84322711 R51.9 for years. worse w/o sleep. Riboflavin 200 mg. . contniue magnesium and D3. stop amlodipine . start propranolo l. f/u 2-3 wks. Benign ess ential hypertension 5858634 I10 Blood pressure not at goal of less than 130/80.rec recheck in 1-2 month Recurrent falls 02419843 2 R29.6 reboot the PT [id number] Svetlana Woodruff MD , [facility], OFFICE [address] [place] [address] 41617-775 6 07/01/2021 08:14:28 07/01/2021 08:41:59 Headache 67695758 R51.9 for years. worse w/o sleep. conitnue Riboflavin 100 mg. . contniue magnesium and D3.continu e propranolo l low dose; since pulse at 52 can't increase it. Not sure if the GILMORE's are improved or just ebbing and flowing. [id number] Svetlana Woodruff MD , [facility], OFFICE [address] [place] [address] 50118-582 6 07/20/2021 13:29:35 07/22/2021 14:10:09 Complicated migraine 901316883 G43.109 on low dose topiramate . continue and f/u 1-2 wks( has appt) and if ok will do rf tomopmax and if worseining will increase dose. Hypotensive episode 6776 3001 I95.9 likely from low dose propranolo l stop [id number] Svetlana Woodruff MD , [facility], OFFICE [address] [place] [address] 35090-787 6 07/27/2021 14:24:07 07/29/2021 11:06:13 Migraine 52788542 G43.909 continue magnesium , B2. and increase topiramate to twice a day. Hypotensive episode 6776 3001 I95.9 continue off of the propraonol ol. Active or passive immunization 911663440 Z23 [id number] Celia Yu DNP, [employer] , [facility], OFFICE [address] [place] [address] 53307-852 6 08/31/2021 14:54:49 09/21/2021 09:26:51 Complicated migraine 777364089 G43.109 ChronicRef illed topiramate 25 mgf/u with pcp Dizziness 667163968 R42 Ambulate w/ cane, walkercaut ion w/ dizzinessf /U in 1 month w/ Dr. Woodruff. Ecchymosis 887812370 R58 Resolving, from fall and aspirin usemonitor . f/U with PCP. Fall W19.XXXA Reviewed ER paperworkI ce vs heat for his backREstCa ution, use cane or wheelchair as neededRed flags for emergent care reviewedFo llow up w/ Dr. Woodruff [id number] Svetlana Woodruff MD , [facility], OFFICE [address] [place] [address] 86243-115 6 10/12/2021 11:47:58 10/14/2021 15:11:33 Staring 696708283 H51.8 Rec: neuro and rec: [id number] Svetlana Woodruff MD , [facility], OFFICE [address] [place] [address] 60456-156 6 11/02/2021 10:53:32 11/03/2021 13:54:09 Bleeding from nose 030733676 R04.0 saline spray. samples given Seizure 44851630 R56.9 staring spells- already better on 250 BID leviterice fernandes. Benign ess ential hypertension 7880821 I10 Blood pressure at goal of less than 130/80.con tinue w/o meds Headache 96888874 R51.9 continue the leviterice fernandes started 10/2021- helping. f/u with Dr. Gonzalez paredes disease stage 3 868802574 N18.30 recheck the lab 3 mo [id number] Svetlana Woodruff MD , [facility], OFFICE [address] [place] [address] 01/25/2022 09:43:14 01/25/2022 10:21:40 Seizure 74049652 R56.9 staring spells- already better on 250 BID leviterice fernandes. Bleeding from nose 51122 6005 R04.0 saline spray. samples given Benign ess ential hypertension 4216285 I10 Blood pressure at goal of less than 130/80.con tinue w/o meds Headache 61809802 R51.9 continue the leviterice fernandes started 10/2021- helping. f/u with Dr. Gonzalez Esquivel dney disease stage 3 266246612 N18.30 stable Low back pain 032991387 M54.50 R -sided Dyspnea 598997674 R06.00 restrictio n 2018, otherwise normal. echo 2019- grade 1 diastolic dysfunctio n. Rec: graded exercise. [id number] Svetlana Woodruff MD , [facility], OFF[address] [place] [address] 04/28/2022 11:19:05 04/28/2022 11:57:44 Seizure 96473740 R56.9 with LOC. continue with increased dose of levitirace fernandes. suspect migraine related. Complicated migraine 193 151066 G43.109 With aura of nausea, then GILMORE< then seiszre. continue topiramate 50 mg. BID Keep neuro appt 05/08/22 Metastasis from malignant tumor of prostate 442525302 C61 continue testing and treatment. [id number] Svetlana Woodruff MD , [facility], OFFICE [address] [place] [address] 06/07/2022 11:36:21 06/07/2022 12:46:09 Seizure disorder 003613250 G40.909 Low back pain 354723982 M54.50 R -sided pain over R PSIS. rec check X-ray. ok to take2 aleve BID. Essential hypertension 84241413 I10 hold increasein g bp meds as last time was low and in more pain today. would add in amlodipine 2.5 f/u 1 mo Malignant neoplasm of urinary bladder 154421670 C67.9 continue seeing urologist and taking chem drug- continue seeing urology. Consider getting the colonoscop y when things are more stable. [id number] Svetlana Woodruff MD , [facility], OFFICE [address] [place] [address] 07/05/2022 08:44:20 07/05/2022 12:52:43 Screening for malignant neoplasm of colon 715481870 Z12.11 declines for now. will do after gets cancer treatment . Active or passive immunization 276988477 Z23 Seizure disorder 4033303 02 G40.909 stable more or less. continue the topiramate and leveiteric etam Malignant neoplasm of prostate 316766589 C61 and BPH, will do the flomax continueat ion and using BID xtandi Malignant neoplasm of urinary bladder 208919819 C67.9 continue seeing urologist and taking chem drug- continue seeing urology. Consider getting the colonoscop y when things are more stable. Chronic ki dney disease stage 3 178179309 N18.30 stable but stop aleve. [id number] Svetlana Woodruff MD , [facility], OFFICE [address] [place] [address] 6 07/26/2022 10:54:39 07/26/2022 11:35:35 Essential hypertension 66719863 I10 continue amlodipine 2.5 f/u 3 months Focal onse t impaired awareness epileptic seizure 766374494 G40.209 continue increased leviteriet am and video the next episode. [id number] Svetlana Woodruff MD , [facility], OFFICE [address] [place] [address] 08/16/2022 09:31:59 08/16/2022 12:53:18 Syncope 379009855 R55 ? migraine Headache 74290953 R51.9 continue the leviterice fernandes and topiramate . . f/u with Dr. Kulkarni to discuss ? sumatripta n that he recommende d. consider prednisone burst. Essential hypertension 15477534 I10 better on amlodipine , not a likely cause of HJA [id number] Svetlana Woodruff MD , [facility], OFFICE [address] [place] [address] 09/15/2022 11:10:18 09/15/2022 11:58:21 Pulmonary embolism 56982109 I26.99 08/2022. continue elliquis Metastasis from malignant tumor of prostate 938712192 C61 continue testing and treatment. Seizure 35841797 R56.9 with LOC. continue with increased dose of levitirace fernandes. Headache 60669217 R51.9 continue the leviterice fernandes and topiramate . . try riboflavin 200 mg /d. and try 1/2 of a caffeine pill in the morning. Constipation 62809713 K5 9.00 to start prune juice, if not successful use miralax. [id number] Svetlana Woodruff MD , [facility], [address] [place] [address] 10/06/2022 16:08:32 10/10/2022 07:41:52 Right lower quadrant pain 642586407 R10.31 tenderness R lower trunk between the ribs and the pelvis. ? muscular . Could be diverticul itis but no fever, bloody stool or diarreha. Ua neg for leuks or blood. If blood in stool or fever/ diarrhea, then likely need Antibiotic . I don ont think US abdomen will help. Has PE's but this is not in the thorax. For now use the oxycodone spraringli ngly and f/u 1-2 wks. , sooner if worsening [id number] Svetlana Woodruff MD , [facility], OFF[address] [place] [address] 10/25/2022 10:42:15 10/25/2022 11:26:01 Complicated migraine 814895615 G43.109 continue topiramate 100 mg. BID f/u w/ Dr. Kulkarni. Malignant neoplasm of prostate 798963519 C61 continue Rx Eligard, prolia, abirateron e Malignant neoplasm of urinary bladder 060941830 C67.9 continue seeing urologist and taking chem drug- continue seeing urology. Consider getting the colonoscop y when things are more stable. 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 Pulmonary embolism 35704 003 I26.99 08/2022. continue elliquis, now at lower dose. Pain in pelvis 17867874 R10.2 R side . After visit d/w Dr. Price who notes that the 07/06 bone scan did not show mets remaining. [id number] Svetlana Woodruff MD , [facility], OFFICE [address] [place] [address] 11/22/2022 08:47:26 11/22/2022 09:20:08 Pulmonary embolism 64535750 I26.99 08/2022. 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 Metastasis from malignant tumor of prostate 262933627 C61 continue testing and treatment. Seizure 36703452 R56.9 with LOC. continue with increased dose of levitirace fernandes. Headache 57184705 R51.9 continue the leviterice fernandes and topiramate . . try riboflavin 200 mg /d. and try 1/2 of a caffeine pill in the morning. Malignant neoplasm of urinary bladder 117102081 C67.9 continue seeing urologist and taking chem drug- continue seeing urology. Consider getting the colonoscop y when things are more stable. Poor balance 212023319 R 27.8 working on it. [id number] Svetlana Woodruff MD , [facility], OFFICE [address] [place] [address] 12/15/2022 15:01:19 12/18/2022 07:14:45 Pain in pelvis 90427809 R10.2 check x-rays. and f/u after nuc scan. [id number] Svetlana Woodruff MD , [facility], OFFICE [address] [place] [address] 6 01/17/2023 09:24:49 01/17/2023 11:27:24 Weakness of left lower limb 4583383667 08747 M62.81 discussed- L leg weakness. suspect L2-L4 lesion. (has normal sensory. Diarrhea 10938585 R19.7 improving. Tear of skin 646927436 T 14.8XXA skin tear - will dress continue 1x/d wound changes. Loss of consciousness 41 4916674 R55 from vasovagal from the diarrhea most likely. No signs of concussion . [id number] Svetlana Woodruff MD , [facility], OFFICE [address] [place] [address] 02/21/2023 08:44:12 02/21/2023 09:40:05 Chronic kidney disease stage 3 563873149 N18.30 stable Essential hypertension 93669622 I10 better on amlodipine , not a likely cause of HJA Tear of skin 346717387 T 14.8XXA skin tear - will dress continue 1x/d wound changes. Malignant neoplasm of urinary bladder 941187179 C67.9 continue seeing urologist and taking chem drug- continue seeing urology. Consider getting the colonoscop y when things are more stable. 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 Since hiss brother and he has had essential tremors for years I doubt Parkinson' s but there is nothing that says you can have Parkinson' s and essential tremor and they will talk to their neurologis t about this. They are informed that there is no specific test for Parkinson' s and . History of pulmonary embolus 510509272 Z86.711 continues on eliquis. [id number] Svetlana Woodruff MD , [facility], OFF[address] [place] [address] 04/23/2023 15:00:49 04/23/2023 15:30:32 Benign essential hypertension 0370504 I10 at goal, continue current regimen Pulmonary embolism 75377 003 I26.99 d/c eliquis on 04/11 per heme/onc specialist s, follow up as planned Low back pain 591307568 M54.50 ER notes reviewedac clemente on chronicxra y 2009 showing DDD, xrays without acute pathology done in ERgiven hx would rec to avoid NSAIDs as best as possible, trial arthritis tylenol instead, could also consider topical options pending responsere c PT, he declines for now, is active at home at baselineca ll as needed Malignant neoplasm of urinary bladder 314642576 C67.9 recent bone scan without mets to the spinefollo w up with specialist as planned Senile purpura 20858777 D69.2 reassuranc e givenbeing off the eliquis should help as well [id number] Svetlana Woodruff MD , [facility], [address] [place] [address] 05/15/2023 13:25:12 05/15/2023 14:31:02 Superficial laceration of upper limb 247144327 S41.111A Pulmonary embolism 28295 003 I26.99 08/2022. Elliquis stopped 03/2023 for purpura and epistaxis. Malignant neoplasm of urinary bladder 349349967 C67.9 continue seeing urologist and taking chem drug- continue seeing urology. Consider getting the colonoscop y when things are more stable. even thought he PE may be more likely had to stop due to bleeding Adverse re action to drug 79956225 T50.905A suspect reaction to tripple Absx. use bacitracin instead [id number] Svetlana Woodruff MD , [facility], OFF[address] [place] [address] 05/25/2023 09:31:00 05/25/2023 10:23:30 Acute low back pain 869855718 M54.50 Tenderness over the right posterior pelvis and sacral spine. Initially with imaging done at the hospital. We do not have any of the hospital records from 3 days ago. He is having trouble walking and at this point he needs some kind of pain control. He has red face with oxycodone. He is failed Tylenol and ibuprofen. At this point I think he does need narcotic level of treatment. Would first try meloxicam and if that does not work would use the hydrocodon e. A prescripti on is given for both. We will obtain the records.-r equested Unclear etiology of this severe right sacral/pos terior pelvis pain. Does have hx pos bone scan there. chech x-ray Malignant neoplasm of urinary bladder 037572325 C67.9 continue seeing urologist. of note the Aberateron e was discontinu ed. on 05/18. Has pos bone scan to pelvis R acetabulum and R SI joint area . So do want to see any imaging they did at ED. [id number] Svetlana Woodruff MD , [facility], OFF[address] [place] [address] 05/29/2023 16:58:01 05/29/2023 17:33:13 Low back pain 852399898 M54.50 R -sided pain over R PSIS. with negative x-ray pelvis. rec: bone scan for possible Cancer pain as there pas a spot on the R pelvis. increase med to hydromorph one as hydrocodon e not helping. [id number] Svetlana Woodruff MD , [facility], OFFICE [address] [place] [address] 06/05/2023 16:08:26 06/05/2023 16:37:45 Backache 503787127 M54.9 Pain is much better at this point he will go to half of the hydromorph one for a week twice a day and then stop it. As he is doing that he can introduce some of the 650 mg of Tylenol with it. Continue the senna and prune juice while he is on it to prevent constipati on. Salon pas lidocaine if needed. Active or passive immunization 979779794 Z23 Pt declines vaccines [id number] Svetlana Woodruff MD , [facility], OFFICE [address] [place] [address] 06/27/2023 14:03:35 06/28/2023 08:23:57 Active or passive immunization 508385417 Z23 Pt declines vaccines Macrocytosis 157786175 D 75.89 repeat B12 last done 2018. Abdominal pain 93773216 R10.[address] of abdo men abnormal 7015089069 1777361 R93.5 copy printed to send to Dr. Darrion walton prostate Laceration of left upper arm 5275161380 7532307 S41.112A superficia l . doing well. [id number] Svetlana Woodruff MD , [facility], OFFICE [address] [place] [address] 07/20/2023 09:06:27 07/20/2023 18:45:04 Active or passive immunization 077071878 Z23 Pt declines vaccines Migraine with aura 94429 06 G43.109 consider excedrine migranine. increase amitriptyl ine to 50 mg. add amerge- naratripta n. can use 2x/wk. lAST imaging 2019. with increasing gilmore's over the last 2 yrs. would check imaging. [id number] Svetlana Woodruff MD , [facility], OFF[address] [place] [address] 08/01/2023 16:02:39 08/01/2023 16:48:58 Migraine with aura 6034020 G43.109 Doing much better on amitriptyl ine and also prn naratripta n 2x/wk for breakthrou gh and using excedrine migraine if needed . can continue [id number] Svetlana Woodruff MD , [facility], [address] [place] [address] 09/04/2023 13:56:53 09/04/2023 14:58:38 Adult health examination 972075995 Z00.00 see Risk Assessment and Lifestyle Change Counseling section above Eat more meals less snacks. Depression screening 171 278572 Z13.31 depression screening tool administer ed Screening for alcohol abuse 937416827 Z13.39 Alcohol use screening tool administer ed Active or passive immunization 295211036 Z23 reminded pt about getting pneumo and shingles at local pharmacy Malignant neoplasm of urinary bladder 711529533 C67.9 Recurrent . Has pos bone scan to pelvis R acetabulum and R SI joint area . So do want to see any imaging they did at ED. Carcinoma of prostate 25 6714486 C61 with mets Low back pain 319317662 M54.50 with pain low back when touches upper back. check for compressio n fx Posterior rhinorrhea 758 42966 R09.82 trial ipratropri um Essential hypertension 45035226 I10 better on amlodipine , at goal. Small vess el cerebrovascular disease 370570226 I67.9 contniue atorvastat in. restart baby aspirin since CVA hx. can't be on aspirin and topamax. [id number] Maria Guadalupe Freeman , [facility], OFFICE [address] [place] [address] 09/28/2023 15:22:51 10/01/2023 09:03:34 Edema of lower extremity 023734794 R60.0 Labs and ultrasound were ordered, but patient was transporte d to ER due to above. History of pulmonary embolus 026113054 Z86.711 - with hx of PE, and concern for DVT today as patient has active cancer and is no longer on anti-coagu lation due to side effects Malignant neoplasm of prostate 141928594 C61 - with hx of PE, and concern for DVT today as patient has active cancer and is no longer on anti-coagu lation due to side effects Malignant neoplasm of urinary bladder 473630766 C67.9 - with hx of PE, and concern for DVT today as patient has active cancer and is no longer on anti-coagu lation due to side effects Disorientated 84135253 R 41.0 After the visit, diandra noah was called to the parking lot. Patient had reported to his and daughter that he felt dizzy, his left hand felt numb, and he felt chest pain. When we approached him, patient was conscious but not responding to questions. He was leaning forward in the walker seat and unable to keep himself in the seat. BP/HR/O2 sat stable. 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 EMS was called and arrived on scene, and transporte d patient to the emergency room. [id number] Maria Guadalupe Freeman , [facility], OFF[address] [place] [address] 10/05/2023 14:25:34 10/09/2023 16:04:57 Transient cerebral ischemia 428880241 G45.9 - CT negative for stroke, but does have chronic cerebral ischemia- will start ASA 81mg once daily, and continue statin Essential hypertension 51983722 I10 - blood pressure at goal of 130/80, continue current medication s Seizure 61733945 R56.9 - episode possibly a seizure and following with Dr Kulkarni and on sidney- Dr Kulkarni is ordering an EEG for further eval- continue current medication s - no driving [id number] Svetlana Woodruff MD , [facility], OFF[address] [place] [address] 10/17/2023 09:24:22 10/18/2023 09:05:36 Onychomycosis of toenails 529633909 B35.1 send to podiatry Altered mental status 41 8178342 R41.82 on X-mas and the next day and when here in the office on 10/05/23. Suspect partial complex seizures. Neg w/u , seeng dr kulkarni. on R , not clear why, Talk to dr. Kulkarni. First try wrist splint at night. continue levetirace fernandes and the amitriptyl ine Numbness of hand 9618480 04 R20.0 [id number] Maria Guadalupe Freeman , [facility], OFFICE [address] [place] [address] 6 11/09/2023 16:23:40 11/11/2023 16:34:10 Active or passive immunization 894885147 Z23 pneumo, shingles: advised at pharmacy should pt decide to have Seizure 11216855 R56.9 - episode possibly a seizure and following with Dr Kulkarni and on keppra, no recent med adjustment s made- Dr Kulkarni is ordering an EEG for further eval- continue current medication s - no driving Transient cerebral ischemia 407548061 G45.9 - CT negative for stroke, but does have chronic cerebral ischemia- continue ASA 81mg once daily, and continue statin Advance care planning 71 2133203 Z71.89 - health care proxy reviewed today- MOLST reviewed - CPR ok but no intubation - scanned into chart [id number] Sherry Hughes MD Podiatry, [facility] [address] [place] [address] 11/13/2023 15:10:04 11/13/2023 15:54:01 Chronic kidney disease stage 3 367461312 N18.30 Hypertrophy of nail 3065 4002 L60.2 [id number] Svetlana Woodruff MD , [facility], OFF[address] [place] [address] 12/26/2023 08:11:12 12/27/2023 12:36:08 Migraine 26497344 G43.909 continue , B2. naratiptan , amittrip, leviticace fernandes Seizure disorder 6420217 02 G40.909 stable more or less. continue the topiramate and leveiteric etam Recurrent falls 91565143 2 R29.6 reboot the PT Malignant neoplasm of urinary bladder 986936480 C67.9 Recurrent . Has pos bone scan to pelvis R acetabulum and R SI joint area . Malignant neoplasm of prostate 642832868 C61 continue Rx Eligard, prolia, abirateron e Pulmonary embolism 19584 003 I26.99 Is at risk for recurrence due to cancer, but too many falls no further anticoag [id number] Svetlana Woodruff MD , [facility], [address] [place] [address] 01/09/2024 11:40:59 01/09/2024 12:46:19 Osteoarthritis of left knee joint 0633594568 [address] Leiva, use diclofenac Trouble ambulating due to pain Headache 74500632 R51.9 continue the leviterice fernandes and topiramate . . try riboflavin 200 mg /d. and try 1/2 of a caffeine pill in the morning. I do not think had a true reaction to the tyleonol. Impairment of balance 38 5623529 R26.89 keep working w/ PT. [id number] Sherry Hughes MD Podiatry, [facility] [address] [place] [address] 01/15/2024 11:44:27 01/15/2024 12:11:59 Chronic kidney disease stage 3 394260753 N18.30 Hypertrophy of nail 3065 4002 L60.2 [id number] Svetlana Woodruff MD , [facility], [address] [place] [address] 03/26/2024 10:44:27 03/26/2024 11:34:14 Urinary incontinence 042197674 R32 Continue Tolteridin e- helping. use pull up / depends daily. Eruption 730382536 R21 erythema of skin in interglute al cleft- use both nystatin and triamcinol one. will try to do in combo. Screening for malignant neoplasm of colon 903511376 Z12.11 Referral for a DIRECT booked colonoscop y. This patient is a healthy ASA Class 1 or 2 patient (only mild systemic disease), or a STABLE, well controlled insulin dependent diabetic. They do not have serious cardiac disease ie MA/angiopl asty within 1 year, symptomati c CHF; renal failure with CKD 4 or 5; take Coumadin, Plavix, Aggrenox, etc. Migraine 34655720 G43.90 9 continue , B2. naratiptan prn , amittrip, leviticace fernandes Osteoarthr itis of right knee joint 1940234764 22901 M17.11 use diclofenac Trouble ambulating due to pain [id number] Sherry Hughes MD Podiatry, [address] [address] 03/19/2024 09:05:39 03/19/2024 09:45:08 Chronic kidney disease stage 3 128183610 N18.30 Hypertrophy of nail 3065 4002 L60.2 [id number] Sherry Hughes MD Podiatry, [address] [address] 06/04/2024 09:30:51 06/04/2024 10:15:39 Chronic kidney disease stage 3 410600146 N18.30 Hypertrophy of nail 3065 4002 L60.2 [id number] Svetlana Woodruff MD , [facility], OFFICE [address] [place] [address] 07/01/2024 14:30:09 07/01/2024 15:48:46 Active or passive immunization 016983495 Z23 reminded pt about getting pneumo and shingles at local pharmacy Adjustment disorder with depressed mood 47647194 F43.21 rec: start ssr for anxiety and depression i and if paranoia no better would use antipsycho tic class like aripprazol e Headache 15347150 R51.9 continue the leviterice fernandes and topiramate . . continueri boflavin 200 mg /d. and try 1/2 of a caffeine pill in the morning. add mg glycinate. Migraine with aura 87331 06 G43.109 Doing much better on amitriptyl ine and also prn naratripta n 2x/wk for breakthrou gh and using excedrine migraine if needed . can continue Metastatic malignant neoplasm to prostate 45199043 C79.82 Lupron and a f/u w/ urology [id number] Svetlana Woodruff MD , [facility], OFFICE [address] [place] [address] 6 07/24/2024 11:30:23 07/24/2024 12:27:14 Active or passive immunization 108883239 Z23 PCV20/Ah gles - reminded Benign ess ential hypertension 5437732 I10 at goal on average, continue current regimen Malignant neoplasm of prostate 808876290 C61 known prostate and bladder cancerknow n mets to boneplan as abovef/u with oncology team as scheduled Metastatic malignant neoplasm to bone 25829723 C79.51 as above Pain of ri ght hip joint 0981824710 97895 M25.551 acute pain x1 week with known metastatic cancer historywil l obtain imaging as last was completed in February (whole body scan) and May (DEXA) to r/o additional bone metsdiscus sed PT if normal, he had success with improving LE strength with PT in the past Osteopenia 943688574 M85 .80 noted on recent DEXAencour aged calcium, vitamin D Malignant neoplasm of urinary bladder 767998528 C67.9 as above [id number] Sherry Hughes MD Podiatry, [facility] [address] [place] [address] 08/13/2024 09:56:11 08/13/2024 10:50:26 Chronic kidney disease stage 3 545860925 N18.30 Thickening of skin 38978 006 L85.1 [id number] Svetlana Woodruff MD , [facility], [address] [place] [address] 08/15/2024 09:44:42 08/15/2024 12:09:20 Diverticulosis of sigmoid colon 672953047 K57.30 Pain of ri ght hip joint 3642694294 98408 M25.551 agree wtih PT. Migraine 46177653 G43.90 9 continue , B2. naratiptan prn , amittrip, leviticace fernandes Essential hypertension 78806033 I10 better on amlodipine , just about at goal. Anxiety 13287166 F41.9 still / some paranoia, but better. willing crease the fluoxetine to 20 . [id number] Cheo Goldberg MD , [facility], [address] [place] [address] 08/21/2024 11:35:38 08/25/2024 12:46:53 Tear of skin 896839478 T14.8XXA supportive treament reviewed with pt- signs and symptoms of infection- reviewed and to f/u if any occur. discussed hydration and nutrition important to healing- and elevating arm at elbow to prevent swelling and aid healing Active or passive immunization 092277180 Z23 [id number] Svetlana Woodruff MD , [facility], OFFICE [address] [place] [address] 08/27/2024 13:24:48 08/27/2024 15:39:27 Avulsion of skin 782665440 T14.8XXD skin avulsion L forarm. use vaseline gasue or xerofrom and wrap. [id number] Svetlana Woodruff MD , [facility], OFFICE [address] [place] [address] 10/31/2024 14:21:48 10/31/2024 17:21:20 Infection of penis 859906569 N48.29 use the mupriocin 2-3x/d. call if still hurts in 1 week. keep 3 wk f/u. [id number] Svetlana Woodruff MD , [facility], OFFICE [address] [place] [address] 11/03/2024 14:17:56 11/03/2024 15:02:51 Injury of hand 711147556 S69.91XA check x-ray Rib pain [id number] R07.8 1 Fracture o f metacarpal bone [id number] S62.308A refer to ortho [id number] Sherry Hughes MD Podiatry, [address] [phone] 11/12/2024 11:56:19 11/12/2024 13:01:08 Chronic kidney disease stage 3 [id number] N18.30 Thickening of skin 59265 006 L85.1 [id number] Svetlana Woodruff MD , [facility], OFFICE [address] [place] [phone] 11/17/2024 09:44:14 11/17/2024 10:29:04 Essential hypertension [id number] I10 on 2.5 amlodpine, BP going up increase to 5 mg. lisinopril caused hyperkalem ia, and we don't want to use diruetic due to the urinary issues, so next woudl add hydralazin e. Closed fra cture of metacarpal bone [id number] S62.300D continue splint f/u w/ ortho. Headache 50732352 R51.9 continue the leviterice fernandes and topiramate . . continueri boflavin 200 mg /d.and mg glycinate. [id number] Svetlana Woodruff MD , [facility], OFFICE [address] [place] [phone] 12/19/2024 13:04:37 12/19/2024 13:57:16 Localized eruption of skin [id number] R21 use the TAC for a few days to a week Edema of l ower extremity 070939610 R60.0 from amlodipine . Essential hypertension 10916091 I10 on 2.5 amlodpine, BP going up increase to 5 mg. lisinopril caused hyperkalem ia, and we don't want to use diruetic due to the urinary issues, so next woudl add hydralazin e. Migraine 13464541 G43.90 9 continue B2. naratiptan prn , amittrip, leviticace fernandes Metastatic malignant neoplasm to bone 60208945 C79.51 from prostate Ca- Seeing Dr. Maier Seizure disorder 2411137 02 G40.909 stable more or less. continue the topiramate and leveiteric etam [id number] Sherry Hughes MD Podiatry, [address] [phone] 01/14/2025 09:52:55 01/14/2025 10:21:13 Chronic kidney disease stage 3 [id number] N18.30 Thickening of skin 56476 006 L85.1 [id number] Sherry Hughes MD Podiatry, [address] [phone] 03/18/2025 14:00:50 03/18/2025 14:38:01 Chronic kidney disease stage 3 154581903 N18.30 Hypertrophy of nail 3065 4002 L60.2 Health Concerns Section Related Observation LastModified by Organization Detai ls LastModified Time None Recorded Concern Status LastModified by Organization Details LastModified Time None Recorded Advance Directives Directive None Recorded Payers Encounter Date Sequence Insurance Name Policy Number Policy Andino Covered Member ID Andino Member ID Guarantor Name 11/12/2024 1 [facility] [place] [facility] [employer] - DOS ON OR AFTER 2023 - ONE CARE (MEDICARE REPLACEMENT/ADV ANTAGE - HMO) Kody Tinajero [id number] Kody Romeroanyimilena 11/17/2024 1 [facility] [place] [facility] [employer] - DOS ON OR AFTER 2023 - ONE CARE (MEDICARE REPLACEMENT/ADV ANTAGE - HMO) Kody Romeroanyimilena [id number] oKdy Romeroeri 12/19/2024 1 [facility] [place] [facility] [employer] - DOS ON OR AFTER 2023 - ONE CARE (MEDICARE REPLACEMENT/ADV ANTAGE - HMO) Kody Romeroeri [id number] Kody Tinajero 01/14/2025 1 [facility] [place] [facility] [employer] - DOS ON OR AFTER 2023 - ONE CARE (MEDICARE REPLACEMENT/ADV ANTAGE - HMO) Kody Romeroeri [id number] Kody Romeroeri 03/18/2025 1 [facility] - DOS ON OR AFTER 2023 - ONE CARE (MEDICARE REPLACEMENT/ADV ANTAGE - HMO) Kody Romeroeri [id number] Kody Tinajero Notes Date Note Type Note Provider Name and Address Organization Details Recorded Time 11/12/2024 text/html Patient with chronic kidney disease returns to the office for evaluation of thick, dry and cracking skin on his right foot. Patient without complaints of open wound or drainage. Patient states he has not been applying ammonium lactate cream. Patient seen by Svetlana Woodruff MD on 08/27/2024. Ren Fabian DPM [address] [place] [address], [phone], [facility] 11/12/2024 12:44:58 11/17/2024 text/html Here for MM HTN -PSA went from below [address] Maier, He got the hormone shot Lupron. And back down. Hearing- having TV very loud. States would not use hearing aid. Gets upset easily accusing him of running around on him. GILMORE's better. headache. on amitriptyline, uses naratiptan 2x./wk if needed. works when he uses it. R hand swelling better,, s/p fall and fx 11/02. in a splint fx 3rd and 4th metacarpals. Supplements on B2 , and Magnesium Svetlana Woodruff MD [address] [place] [address], [phone], [facility] 11/17/2024 10:21:56 12/19/2024 text/html Here for MM HTN HTN- amlodipine increased to 5 mg , some increased swelling. mild. Fell and hurt his L arm and then reaction to neosporin. -PSA went from below [address] Maier, He got the hormone shot Lupron. And back down. Hearing- having TV very loud. States would not use hearing aid. Gets upset easily accusing him of running around on him. GILMORE's better. headache. on amitriptyline, uses naratiptan 2x./wk if needed. works when he uses it. R hand swelling better,, s/p fall and fx 11/02. in a splint fx 3rd and 4th metacarpals. Supplements on B2 , and Magnesium Svetlana Woodruff MD [address] [place] [address], [phone], [facility] 12/19/2024 13:53:37 01/14/2025 text/html Patient with chronic kidney disease returns to the office for evaluation of thick, dry and cracking skin on his right foot. Patient states he has not been applying ammonium lactate cream, but has no complaints of open wound or drainage. Patient seen by Svetlana Woodruff MD on 08/27/2024. Ren Fabian DPM [address] [place] [address], [phone], [facility] 01/14/2025 10:08:53 03/18/2025 text/html Patient with chronic kidney disease presents to the office for evaluation and at risk foot care. Patient complains of thickened toenail of his left big toe he cannot care for himself. Patient has no complaints of open wound or drainage. Patient seen by Svetlana Woodruff MD on 12/19/2024. Ren Fabian DPM [address] [place] [address], [phone], [facility] 03/18/2025 14:35:33
[2025-03-19 09:39] LABS: Prostate Specific Antigen 3.67 ng/mL (<0.05-4.0)
[2025-03-23 01:47] LABS: Testosterone, Total 2 ng/dL (250-1100)
== END 2025-03-19 08:20 | disposition home or self-care (01) ==
LOC: HO.LAB 08:19
PROVIDERS: PCP Family Medicine; Visit Provider Urology
DX: C79.51 Secondary malignant neoplasm of bone (principal); C61 Malignant neoplasm of prostate; Z12.5 Encounter for screening for malignant neoplasm of prostate
CPT/HCPCS: 36415; 84153; 84403

== ENCOUNTER 2025-04-02 10:09 | Outpatient (REF) | payer OTHER, SELFPAY ==
[2025-04-02 17:49] LABS: Urine Cytology See Pathology rpt
== END 2025-04-02 10:10 | disposition home or self-care (01) ==
LOC: HO.LAB 10:09
PROVIDERS: PCP Family Medicine; Visit Provider Urology
DX: C61 Malignant neoplasm of prostate (principal); C67.1 Malignant neoplasm of dome of bladder; C79.51 Secondary malignant neoplasm of bone; Z13.9 Encounter for screening, unspecified
CPT/HCPCS: 81003; 88112; 99212

== ENCOUNTER 2025-04-02 10:09 | Outpatient (AMB) | payer OTHER, SELFPAY ==
--- NOTE | 2025-04-02 10:12 | A.OFFVIS_ITS ---
Intake Visit Reasons: 3m/Pet-CT/PSA Intake Note: Patient is present for 3M/PET-CT/PSA Urology Medication:TOLTERODINE,VITAMIN B2,TAMSULOSIN Antibiotic Allergy:NONE Blood Thinner:NONE Exterminator Termite Required: No Allergies oxycodone (Percocet) Adverse Reaction (Intermediate, Verified 04/02/25 10:14) face got really red HPI Comments Details: Kody is a very pleasant male. He is a patient of Dr. Acosta. 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 - bladder instability Discussed imaging results Repeat cystoscopy three-month with repeat GnRH and Prolia Will be 3rd GnRH injection 04/08 PET-CT question small area avidity bladder apex may represent small metastatic node but otherwise clear PSA 3.6, testosterone 2 01/06 2.4 T 5, [facility], cystoscopy - small superficial lesion 09/07 PSA 2.9 T 4 - Cysto - negative 07/08 GnRH (plan for 3 injections) 06/07 PSA 14 T 75 - DEXA scan osteopenia 03/07 PSA 1.9 T 23 Prolia injection - Bone Scan - no evidence of active metastatic disease Cystoscopy normal - Trial of OAB medication tolterodine 12/08 PSA 0.86 T <3 08/06 - PSA 0.65 T low Bone Scan - A few additional Mild nonspecific abnormalities are noted as described above and these are all likely arthritic or traumatic in etiology. None of these abnormalities is strongly suspicious for metastatic disease Remains on GnRH as single therapy 07/07 CT with question of residual prostate activity - may benefit from PSMA scan 05/06 - PSA 0.5 T<1 PSA low Prolia and GnRH agonist today Three month follow-up labs with bone scan Has been on combined therapy for 3 years Prostate cancer 12/30 initial treatment XRT with rising PSA and a bone scan lesion 01/04 PSA 0.4 T <1 - continue oral antiandrogen. Bone scan normal. Abdominal CT scan normal. 10/05 Abiraterone 2 tab daily - GnRH administered 05/05 abiraterone 2 tabs daily since seizure 04/05 GnRH with abiraterone - reduced to 3 tabs daily Prostate cancer metastatic Biopsy 12/30 - multicore [place] 8, PSA 96 Initial treatment EXBRT 11/03 Metastatic treatment combination GnRH injections with oral antiantigen PSA 09/03 0.2, 03/04 PSA 0.23, 07/05 0.2 T 9, 01/03 P 0.4 T 122, 04/05 0.3, 07/06 0.3, 10/05 0.6 T 3, 04/06 0.5 T <1 Imaging 11/03 bone scan with evidence of metastatic disease to the ribs and iliac crest - 11/[address] no evidence of bony metastases - 03/04 bone scan shows improvement, density shows osteopenia - 12/06 Bone Scan with improvement on iliac crest - 06/05 Bone Density - osteopenia - on calcium supplementation - 07/06 bone scan with minimal evidence of bony metastases Bladder cancer recurrent low-grade 12/2020, 06/05, 05/06 Initial diagnosis July 2018 low-grade superficial Cystoscopy Aug 2020 small superficial recurrence, 04/04 NAD, 08/04 NAD, 09/06 Cytology 04/05 NAD, 09/06 NAD Intervention - December 2020 TURBT 2 cm with satellite lesions, 06/05 multiple small lesions removed (small preperitoneal bladder perf) - 04/06 urinary papilloma Pathology - December 2020 low-grade bladder cancer, 06/05 low-grade superficial - 04/06 Inflammatory Adjuvant therapy - January 2021 6 week gemcitabine induction, 08/04 3 weeks gemcitabine 06/05 6 week reinduction gemcitabine PFSH Medical History Pulmonary emboli Hx of migraines CKD (chronic kidney disease), stage III Dizziness Malignant tumor of prostate (05/16/21) Hyperlipidemia (05/16/21) Essential hypertension (05/16/21) Complex partial seizure disorder Seizure disorder Tremor Cerebral microvascular disease Bone cancer Bladder cancer Bladder tumor Prostate CA Hematuria Elevated cholesterol HTN (hypertension) Surgical History Hx of colonoscopy History of cystoscopy H/O prostate biopsy Social History Household Members: Spouse Housing: House Are you a primary transitional care nurse to a significant other at home: No Do you presently have visiting nurse or other home services: No Alcohol intake: never Comment: no count Patient Tobacco Use Status: Never used Tobacco Second Hand Smoke Exposure: No Advance Directives Date on File: 05/22/22 service: No Current occupational status: retired Review of Systems Const Denies chills and Denies fever(s) Card Reports no additional complaints and Denies syncope Resp Denies cough GI Denies abdominal pain and Denies heartburn Reports as per HPI and Denies change in libido Neuro Denies syncope Psych Denies change in libido Endo Denies change in libido Physical Exam Const General: cooperative, healthy appearing, comfortable and no acute distress Orientation/consciousness: patient oriented x3 HEENT Face and sinus: Yes normal facial exam Mouth: moist mucous membranes Neck Neck: Yes normal visual inspection, Yes full ROM and Yes trachea midline Chest Chest palpation & inspection: normal inspection of the chest Resp Effort & Inspection: normal respiratory effort, able to speak in complete sentences and no respiratory distress GI Inspection: Yes normal to inspection Back/Spine/Pelvis Cervical Spine: normal cervical lordosis Thoracic/Lumbar Spine: thoracic and lumbar spine normal to inspection Skin General skin exam: no rashes or lesions noted Neuro General: patient oriented x3, gait normal, tone normal and moves all extremities Extrem General: Yes normal to inspection and Yes capillary refill normal Results AMB Urinalysis, Automated UA Leukoctes 0 Jeff/uL Last Edit by ZAYDA Berry on 04/02/25 11:16 UA Nitrite Negative Last Edit by ZAYDA Berry on 04/02/25 11:16 UA Urobilinogen 0.2 mg/dL Last Edit by ZAYDA Berry on 04/02/25 11:1 6 UA Protein 15 mg/dL Last Edit by ZAYDA Berry on 04/02/25 11:16 UA pH 6.0 Last Edit by ZAYDA Berry on 04/02/25 11:16 UA Blood 0 Phi/uL Last Edit by ZAYDA Berry on 04/02/25 11:16 UA Specific [place] 1.015 Last Edit by ZAYDA Berry on 04/02/25 11: 16 UA Ketone Negative Last Edit by ZAYDA Berry on 04/02/25 11:16 UA Bilirubin 0 mg/dL Last Edit by ZAYDA Berry on 04/02/25 11:16 UA Glucose 0 mg/dL Last Edit by Hilton Hart CCM on 04/02/25 11:16 Results Reviewed Results Reviewed: Laboratory Last Values Urine pH (Auto) 6.0 04/02/25 11:15 Specific [place] (Auto) 1.015 04/02/25 11:15 Urine Protein (Auto) 15 mg/dL 04/02/25 11:15 Glucose (UA)(Auto) 0 mg/dL 04/02/25 11:15 Urine Ketones (Auto) Negative 04/02/25 11:15 Urine Blood (Auto) 0 Phi/uL 04/02/25 11:15 Urine Nitrite (Auto) Negative 04/02/25 11:15 Urine Bilirubin (Auto) 0 mg/dL 04/02/25 11:15 Urine Urobilinogen (Auto) 0.2 mg/dL 04/02/25 11:15 Leukocyte Esterase (Auto) 0 Jeff/uL 04/02/25 11:15 Assessment & Plan Assessment & Plan (1) Prostate cancer metastatic to bone: Code(s): C61 - Malignant neoplasm of prostate; C79.51 - Secondary malignant neoplasm of bone Category: Medical (2) Bladder cancer: Comment: Recurrent low-grade multifocal - 06/05 Code(s): C67.9 - Malignant neoplasm of bladder, unspecified Category: Medical Qualifiers: Bladder location: dome Qualified Code(s): C67.1 - Malignant neoplasm of dome of bladder Plan Three-month follow-up office cysto plus lab work Orders: Orders Testosterone, Total 3 Months C61 - Malignant neoplasm of prostate, C79.51 - Secondary malignant neoplasm of bone AMB Urinalysis Automated Today Z13.9 - Encounter for screening, unspecified Urine Cytology Today C67.1 - Malignant neoplasm of dome of bladder Prostate Specific Antigen 3 Months C61 - Malignant neoplasm of prostate, C79.51 - Secondary malignant neoplasm of bone Patient Instructions: This note is constructed using voice recognition software. While every effort has been made to ensure accuracy registered medical transcriptionist errors may have been included. Imaging studies, laboratory and physical exam results were discussed and reviewed in detail. No major barriers to patient understanding were identified. An opportunity to ask questions regarding the treatment plan was provided. All questions were answered. The patient expressed understanding and agreement with the above treatment plan. The patient is aware they should contact our office by phone for worsening of their current condition or the appearance of new urologic symptoms. Compliance is encouraged with any medications and followup testing that is ordered. It is a privilege to participate in the urologic care of your patient. If you have any questions or concerns regarding treatment for the above conditions, or other urologic issues, please do not hesitate to contact me. The office telephone contact is [phone]. Sincerely, Dr Dom Maier MD, [facility] - Urology Compassionate Specialist Care for the Genitourinary System Coding Level of Care Code Est Pt Level 3 (60246) Complex EM visit Add On G2211 Diagnoses Prostate cancer metastatic to bone C61; C79.51 Malignant neoplasm of dome of urinary bladder C67.1 Bladder location: dome
== END 2025-04-02 10:52 | disposition home or self-care (01) ==
LOC: HO.HUSH 10:10
PROVIDERS: PCP Family Medicine; Visit Provider Urology
DX: C61 Malignant neoplasm of prostate (principal); C79.51 Secondary malignant neoplasm of bone; C67.1 Malignant neoplasm of dome of bladder; Z13.9 Encounter for screening, unspecified
CPT/HCPCS: 99213; G2211

== ENCOUNTER 2025-04-30 09:53 | Outpatient (AMB) | payer OTHER, SELFPAY ==
--- NOTE | 2025-04-30 10:12 | MHC.OFFVIS ---
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4 mg PO BID tolterodine ER 2 mg PO DAILY 30 days topiramate 100 mg PO BID topiramate 50 mg PO BID HPI Comments Details: 74 years old man with hypertension, prostate cancer, moderately severe cerebral microvascular ischemic disease, migraine headaches, and complex partial seizure. He was doing okay. No seizures. No medication side effects. No recent headaches. Naratriptan as needed helped. He was walking with walker and gait belt. He had fall last month and needed help up, no injury. [facility] Medical History (Updated 04/30/25 @ 10:16 by Wanda Carver CNP) Gait disorder Vascular dementia Cervical spondylarthritis Cerebral microvascular disease Chronic migraine without aura, intractable, without status migrainosus Pulmonary emboli Hx of migraines CKD (chronic kidney disease), stage III Dizziness Malignant tumor of prostate (05/16/21) Hyperlipidemia (05/16/21) Essential hypertension (05/16/21) Complex partial seizure disorder Seizure disorder Tremor Cerebral microvascular disease Bone cancer Bladder cancer Bladder tumor Prostate CA Hematuria Elevated cholesterol HTN (hypertension) Surgical History Hx of colonoscopy History of cystoscopy H/O prostate biopsy Social History Household Members: Spouse Housing: House Are you a primary care worker to a significant other at home: No Do you presently have visiting nurse or other home services: No Alcohol intake: never Comment: no count Patient Tobacco Use Status: Never used Tobacco Second Hand Smoke Exposure: No Advance Directives Date on File: 05/22/22 service: No Current occupational status: retired Review of Systems Const Denies chills, Denies daytime sleepiness, Reports difficulty sleeping, Denies fatigue, Denies fever(s), Denies frequent falls, Reports headache(s), Denies increased appetite, Denies poor appetite, Denies snoring, Denies weakness, Denies weight gain and Denies weight loss Eyes Denies loss of vision ENT Denies vertigo, Reports dizziness and Reports headache(s) Card Denies chest pain at rest, Denies chest pain with activity, Denies syncope, Denies leg edema and Denies palpitations Resp Denies snoring GI Denies constipation, Denies heartburn, Denies diarrhea and Denies nausea Denies urinary frequency, Denies urinary incontinence and Denies urinary urgency Musc Denies abnormal gait, Denies numbness and Denies tingling Skin/Breast Denies dry skin and Denies rash Neuro Denies abnormal gait, Denies vertigo, Reports dizziness, Denies syncope, Denies frequent falls, Reports headache(s), Denies lack of coordination, Denies loss of vision, Reports memory loss, Denies numbness, Denies restless legs, Denies seizure-like activity, Denies tingling, Denies paresthesias, Denies tremor(s) and Denies weakness Psych Denies anxiety, Denies depression, Denies auditory hallucinations, Reports memory loss, Denies visual hallucinations and Denies suicidal ideation Endo Denies fatigue and Denies palpitations Physical Exam Const Other: General Appearance:? normal, in no acute distress. Skin:? no rashes, no significant birthmarks. Heart:? S1, S2 normal, no murmurs. Lungs:? clear anteriorly and posteriorly. Extremities:? no edema. Psych:? alert, oriented, cognitive function intact, cooperative with exam. Neuro Other: Mental Status:?Normal attention, orientation, and affect.? Cranial Nerves:?Pupils are equal, round and reactive to light. External occular muscles are intact. Visual trujillo are full. Face is symmetrical. Facial sensations are normal. Tongue is midline. Palate elevates symmetrically. Shoulder shrugging is normal. Hearing to bedside conversation is normal. Sensory Exam:?....? Coordination:?No ataxia,?no titubation.? Gait Exam: With walker and gait belt Cerebellar Signs:?Qiyoxx-os-agze with mild tremor Extrapyramidal System:?No tremor, rigidity with normal facial expressions.? Pronator Drift:?Not present.? Involuntary Movements:?No tremors seen.? Speech:?Normal.? Results Reviewed Results Reviewed: CT brain WO at [facility] in Oct 2023: Extensive MVD CTA brain and neck in Oct 2023: OK Routine EEG at off in Oct 2023: Slow CTA brain and neck at [facility] in Sep 2023: OK (reported) CT brain WO at [facility] in April 2022: mod to sever WM changes CT C spine at [facility] in April 2022: DJD CT brain WO at [facility] in Aug 2021: mod to severe WM hypodensities MRI brain WO at [facility] in Jun 2021: mod to severe MVD, mild atrophy NICS at [facility] in Jun 2021: OK CTA brain and neck at [facility] in May 2021: ok, MVD, atrophy, mod multilevel cervical spondyloarthropathy. Assessment & Plan Assessment & Plan (1) Complex partial seizure disorder: Code(s): G40.209 - Localization-related (focal) (partial) symptomatic epilepsy and epileptic syndromes with complex partial seizures, not intractable, without status epilepticus Category: Medical Plan: Continue levetiracetam 500mg 2 tablets twice a day. (2) Migraine headache without aura: Code(s): G43.009 - Migraine without aura, not intractable, without status migrainosus Category: Medical Qualifiers: Intractability: not intractable Status migrainosus presence: without status migrainosus Qualified Code(s): G43.009 - Migraine without aura, not intractable, without status migrainosus Plan: Continue naratriptan 2.5mg 1 tablet as needed for migraine. (3) Vascular dementia: Code(s): F01.50 - Vascular dementia, unspecified severity, without behavioral disturbance, psychotic disturbance, mood disturbance, and anxiety Category: Medical Qualifiers: Dementia severity: unspecified severity Dementia behavioral or psychological symptom: without behavioral, psychotic, or mood disturbance or anxiety Qualified Code(s): F01.50 - Vascular dementia, unspecified severity, without behavioral disturbance, psychotic disturbance, mood disturbance, and anxiety (4) Gait disorder: Code(s): R26.9 - Unspecified abnormalities of gait and mobility Category: Medical Plan: Use walker at all times. Plan Meds tried for headaches; Topiramate, amitryptiline, Excedrin Migraine, Medications: New levetiracetam 1,000 mg (2 x 500 mg) PO BID 360 tabs 1RF 90 days Discontinued levetiracetam Discontinued Reason: Order 1,000 mg PO BID Coding Level of Care Code Est Pt Level 4 (63733) Diagnoses Complex partial seizure disorder G40.209 Migraine headache without aura G43.009 Intractability: not intractable Status migrainosus presence: without status migrainosus Vascular dementia without behavioral disturbance, psychotic disturbance, mood disturbance, or anxiety, unspecified dementia severity F01.50 Dementia severity: unspecified severity Dementia behavioral or psychological symptom: without behavioral, psychotic, or mood disturbance or anxiety Gait disorder R26.9
--- OUTSIDE RECORDS SUMMARY | 2025-04-30 10:20 | XMS_ITS | Encounter Summary ---
Author Organization [employer] Address [address] [place] [address] Care Team Providers Care Obstetrics Nurse Practitioner Name Role Phone Unavailable Primary Care Provider Unavailabl e Reason for Visit * Reason Onset Date Comments medication 08/29/2024 Encounter Details Date Type Department Care Team ([facility] st Contact Info) Description 08/29/2024 Telephone [facility] [address], [place] [phone] Fredis Doe DDS [address], [place] [phone] medication Social History Tobacco Use Types Packs/Day [...] pharmacy from appt on [facility]. [facility] * Telephone Encounter - Sheridan Barbour - 08/29/2024 11:36 AM EST Message for Dr. Doe Patient called in reporting that medication antibiotic was not sent to pharmacy for patient yesterday. 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
--- OUTSIDE RECORDS SUMMARY | 2025-04-30 10:20 | XMS_ITS | Data Portability ---
Author Organization [facility], [facility] Address [address] [place] [address] Care Team Providers Care Child Support Case Officer Name Role Phone SVETLANA WOODRUFF Primary Care Provider [phone] MUSA MAIER OTHER WILDER KULKARNI OTHER [facility] OTHER [phone] RAMON PRICE OTHER [facility] Neurologis t Assessment Encounter Date Assessment Date Assessment LastModified by Organization Details LastModified Time 01/14/2025 01/14/2025 Chronic kidney disease stage III,Keratosis jerskine Not available 01/14/2025 10:07:00 03/18/2025 03/18/2025 Chronic kidney disease stage III, onychauxis left hallux jerskine Not available 03/18/2025 14:34:19 03/23/2025 03/23/2025 We reviewed your chronic medical conditions and updated your plan for management. Please review instructions below. We have discussed your personal goals and discussed how to reach your goals. Please reach out to us via the Portal or phone if you have questions about your chronic conditions or if you or your caregivers require assistance in meeting your goals. Please visit our website [email or web address] for more patient resources. As part of your care plan, we will help coordinate your ongoing medical needs, arrange for durable medical equipment, renew prescriptions and necessary prior authorizations, facilitate getting referrals and collaborating with specialist, referrals for VNA services. Not available 03/23/2025 15:51:06 Plan of Treatment Reminders Order Date Submit Date Provider Last Modified By Organization Details Last Modified Time Details Appointments Routine Foot Care 15 2024 09:15A Milena Fabian DPM Not available Not available Not available LAB Follow-Up 2024 08:15A M [facility] Lab Not available Not available Not available Medical Managemen t 30 2024 01:45P M Svetlana Woodruff MD Not available Not available Not available Lab None recorded. Referral None recorded. Procedures None recorded. Surgeries None recorded. Imaging None recorded. Medication Orders naratript an 2.5 mg tablet 2024 025 [facility]/Pharmacy #2024, [address] [place], [address], 03/23/2025 18:04:12 triamcino lone acetonide 0.1 % topical cream 2024 025 [facility] [address] [place], [address], 03/23/2025 17:51:16 triamcino lone acetonide 0.1 % topical cream 2024 025 [facility] [address] [place], [address], 12/19/2024 13:49:55 amlodipin e 5 mg tablet 2024 025 [facility] [address] [place], [address], 12/10/2024 18:05:52 Patient TargetsNo targets recorded. Patient Instructions Encounter Date Encounter Id Patient Instructions Last Modified By Organization Details Last Modified Time 01/14/2025 [id number] Patient to apply ammonium lactate cream daily and return if symptoms persist. jerskine Not available 01/14/2025 10:07:00 03/18/2025 [id number] Patient to retur n in 9 weeks [...] furth er confi rmati on Not Available [address], [address], 11/10/2024 11:20:57 11/10/19 25 11/10/2024 HGB A1C estimated average glucose 125.5 mg/dL Not Available [address], [address], 11/10/2024 11:20:57 11/10/1911/10/2024 LIPID PANEL cholesterol 122 mg/dL <200 mg/dl Gale able 200-2 39 mg/dl Borde rline High >240 mg/dl High Not Available [address], [address], 11/10/2024 15:49:14 11/10/1911/10/2024 LIPID PANEL triglyceride s 108 mg/dL <150 mg/dL Lary l 150-1 99 mg/dL Borde rline High 200-4 99 mg/dL High >500 mg/dL Very High Not Available [address], [address], 11/10/2024 15:49:14 11/10/1911/10/2024 LIPID PANEL direct HDL 74 mg/dL <40 mg/dl - Major Risk for CHD >60 mg/dl - Negat juvenal Risk for CHD Not Available [address], [address], 11/10/2024 15:49:14 11/10/19 25 11/10/2024 LDL - CALCU LATED LDL - calculated 26 RISK CATEG ORY LDL GOAL _ CHD or CHD Risk Equiv alent s <100 mg/dl (10-y ear risk >20%) 2+ Risk Facto rs <130 mg/dl (10-y ear risk <= 20%) 0-1 Risk Facto r <160 mg/dl Almo st all peopl e with 0-1 risk facto r have a 10 year risk <10%, thus 10 year risk asses ment in peopl e with 0-1 risk facto r is not necamanda nielsen. Not Available [address], [address], 11/10/2024 15:49:16 11/10/19 25 11/12/2024 COMP. METAB OLIC PANEL glucose 106 mg/dL 70-100 high Not Available [address], [address], 11/12/2024 09:32:50 11/10/19 25 11/12/2024 COMP. METAB OLIC PANEL BUN 27 mg/dL 7-18 high Not Available [address], [address], 11/12/2024 09:32:50 11/10/19 25 11/12/2024 COMP. METAB OLIC PANEL creatinine 1.3 mg/dL 0.8-1. 3 Not Available [address], [address], 11/12/2024 09:32:50 11/10/19 25 11/12/2024 COMP. METAB OLIC PANEL B/C 20.8 ratio Not Available [address], [address], 11/12/2024 09:32:50 11/10/19 25 11/12/2024 COMP. METAB [...] borat ion (CKD- EPI) Equat ion (Kierra saunders et. al 2020) as recom nelly d by the Natio nal Kidne y Found ation . eGFR is based on age, serum creat inine , and sex. CKD-E PI does not calcu late eGFR by race, does not apply to child rhys (age <18 years ), and shoul d not be used in pregn sinan. Not Available [address], [address], 11/12/2024 09:32:50 11/10/19 25 11/12/2024 COMP. METAB OLIC PANEL sodium 142 mmol/ L 136-14 5 Not Available [address], [address], 11/12/2024 09:32:50 11/10/19 25 11/12/2024 COMP. METAB OLIC PANEL potassium 4.5 mmol/ L 3.5-5. 1 Not Available [address], [address], 11/12/2024 09:32:50 11/10/19 25 11/12/2024 COMP. METAB OLIC PANEL chloride 105 mmol/ L 96-107 Not Available [address], [address], 11/12/2024 09:32:50 11/10/19 25 11/12/2024 COMP. METAB OLIC PANEL anion gap 10.0 5.0-15 .0 Not Available [address], [address], 11/12/2024 09:32:50 11/10/19 25 11/12/2024 COMP. METAB OLIC PANEL CO2 27 mmol/ L 21-32 Not Available [address], [address], 11/12/2024 09:32:50 11/10/19 25 11/12/2024 COMP. METAB OLIC PANEL calcium 8.7 mg/dL 8.5-10 .3 Not Available [address], [address], 11/12/2024 09:32:50 11/10/19 25 11/12/2024 COMP. METAB OLIC PANEL total protein 7.2 g/dL 6.4-8. 2 Not Available [address], [address], 11/12/2024 09:32:50 11/10/19 25 11/12/2024 COMP. METAB OLIC PANEL albumin 3.3 g/dL 3.4-5. 0 low Not Available [address], [address], 11/12/2024 09:32:50 11/10/19 25 11/12/2024 COMP. METAB OLIC PANEL globulin 3.9 g/dL Not Available [address], [address], 11/12/2024 09:32:50 11/10/19 25 11/12/2024 COMP. METAB OLIC PANEL A/G 0.8 ratio 0.8-2. 0 Not Available [address], [address], 11/12/2024 09:32:50 11/10/19 25 11/12/2024 COMP. METAB OLIC PANEL total bilirubin 0.90 mg/dL 0.00-1 .00 Not Available [address], [address], 11/12/2024 09:32:50 11/10/19 25 11/12/2024 COMP. METAB OLIC PANEL AST 15 U/L 0-37 Not Available [address], [address], 11/12/2024 09:32:50 11/10/19 25 11/12/2024 COMP. METAB OLIC PANEL ALT 24 U/L 6-63 Not Available [address], [address], 11/12/2024 09:32:50 11/10/19 25 11/12/2024 COMP. METAB OLIC PANEL alk. phos. 118 U/L 50-136 Not Available [address], [address], 11/12/2024 09:32:50 12/19/19 25 12/18/2024 PSA, serum or plasm a PSA 2.56 Not Available [facility] (Medical Records) [address] [place] [address], [address], 12/19/2024 11:08:51 03/18/20 25 03/18/2025 CBC WBC 6.32 K/ L 4.23-9 .07 Not Available [address], [address], 03/18/2025 11:15:31 03/18/20 25 03/18/2025 CBC RBC 4.05 M/ L 4.63-6 .08 low Not Available [address], [address], 03/18/2025 11:15:31 03/18/20 25 03/18/2025 CBC HGB 13.1 g/dL 13.7-1 7.5 low Not Available [address], [address], 03/18/2025 11:15:31 03/18/20 25 03/18/2025 CBC HCT 40.4 % 40.1-5 1.0 Not Available [address], [address], 03/18/2025 11:15:31 03/18/20 25 03/18/2025 CBC MCV 99.8 fL 79.0-9 2.2 high Not Available [address], [address], 03/18/2025 11:15:31 03/18/20 25 03/18/2025 CBC MCH 32.3 pg 25.7-3 2.2 high Not Available [address], [address], 03/18/2025 11:15:31 03/18/20 25 03/18/2025 CBC MCHC 32.4 g/dL 32.3-3 6.5 Not Available [address], [address], 03/18/2025 11:15:31 03/18/20 25 03/18/2025 CBC plt 244 K/ L 163-33 7 Not Available [address], [address], 03/18/2025 11:15:31 03/18/2003/18/2025 CBC MPV 9.9 fL 9.4-12 .4 Not Available [address], [address], 03/18/2025 11:15:31 03/18/2003/18/2025 CBC neut% 48.3 % 34.0-6 7.9 Not Available [address], [address], 03/18/2025 11:15:31 03/18/2003/18/2025 CBC neut# 3.05 1.78-5 .38 Not Available [address], [address], 03/18/2025 11:15:31 03/18/20 25 03/18/2025 CBC lymph % 41.0 % 21.8-5 3.1 Not Available [address], [address], 03/18/2025 11:15:31 03/18/20 25 03/18/2025 CBC lymph # 2.59 K/ L 1.32-3 .57 Not Available [address], [address], 03/18/2025 11:15:31 03/18/2003/18/2025 CBC mono% 7.9 % 5.3-12 .2 Not Available [address], [address], 03/18/2025 11:15:31 03/18/2003/18/2025 CBC mono# 0.50 0.30-0 .82 Not Available [address], [address], 03/18/2025 11:15:31 03/18/2003/18/2025 CBC eo% 1.7 % 0.8-7. 0 Not Available [address], [address], 03/18/2025 11:15:31 03/18/2003/18/2025 CBC eo# 0.11 0.04-0 .54 Not Available [address], [address], 03/18/2025 11:15:31 03/18/2003/18/2025 CBC baso% 0.9 % 0.2-1. 2 Not Available [address], [address], 03/18/2025 11:15:31 03/18/2003/18/2025 CBC baso# 0.06 0.00-0 .08 Not Available [address], [address], 03/18/2025 11:15:31 03/18/2003/18/2025 CBC RDW-CV 13.6 % 11.6-1 4.4 Not Available [address], [address], 03/18/2025 11:15:31 03/18/2003/18/2025 CBC Ig% 0.200 % 0.000- 1.500 Ig % >0.5 Indic ates possi ble Left Shift Not Available [address], [address], 03/18/2025 11:15:31 03/18/20 25 03/18/2025 CBC Ig# 0.010 0.000- 0.093 Not Available [address], [address], 03/18/2025 11:15:31 03/18/20 25 03/18/2025 CBC NRBC% 0.0 % 0.0-0. 2 Not Available [address], [address], 03/18/2025 11:15:31 03/18/20 25 03/18/2025 CBC NRBC# 0.000 0.000- 0.012 Not Available [address], [address], 03/18/2025 11:15:31 03/18/20 25 03/18/2025 BASIC METAB OLIC PANEL glucose 102 mg/dL 70-100 high Not Available [address], [address], 03/18/2025 11:32:09 03/18/20 25 03/18/2025 BASIC METAB OLIC PANEL BUN 33 mg/dL 7-18 high Not Available [address], [address], 03/18/2025 11:32:09 03/18/20 25 03/18/2025 BASIC METAB OLIC PANEL creatinine 1.4 mg/dL 0.8-1. 3 high Not Available [address], [address], 03/18/2025 11:32:09 03/18/20 25 03/18/2025 BASIC METAB OLIC PANEL B/C 23.6 ratio Not Available [address], [address], 03/18/2025 11:32:09 03/18/20 25 03/18/2025 BASIC METAB OLIC PANEL GFR 53.4 mL/mi [...] Colla borat ion (CKD- EPI) Equat ion (Inke r et. al 2020) as recom nelly d by the Natio nal Kidne y Found ation . eGFR is based on age, serum creat inine , and sex. CKD-E PI does not calcu late eGFR by race, does not apply to child rhys (age <18 years ), and shoul d not be used in pregn sinan. Not Available [address], [address], 03/18/2025 11:32:09 03/18/20 25 03/18/2025 BASIC METAB OLIC PANEL sodium 141 mmol/ L 136-14 5 Not Available [address], [address], 03/18/2025 11:32:09 03/18/20 25 03/18/2025 BASIC METAB OLIC PANEL potassium 4.6 mmol/ L 3.5-5. 1 Not Available [address], [address], 03/18/2025 11:32:09 03/18/20 25 03/18/2025 BASIC METAB OLIC PANEL chloride 103 mmol/ L 96-107 Not Available [address], [address], 03/18/2025 11:32:09 03/18/20 25 03/18/2025 BASIC METAB OLIC PANEL anion gap 8.5 5.0-15 .0 Not Available [address], [address], 03/18/2025 11:32:09 03/18/20 25 03/18/2025 BASIC METAB OLIC PANEL CO2 30 mmol/ L 21-32 Not Available [address], [address], 03/18/2025 11:32:09 03/18/20 25 03/18/2025 BASIC METAB OLIC PANEL calcium 8.9 mg/dL 8.5-10 .3 Not Available [address], [address], 03/18/2025 11:32:09 11/03/19 25 11/03/2024 XR, ribs, unila teral CLINIC AL HISTOR Y: Right rib pain after fall. TECHNI QUE: At least [address] views of the right ribs are obtain ed. COMPAR TAMY: None. FINDIN GS: No fractu re or soft tissue abnorm ality of the ribs is seen. The lungs and pleura l spaces are clear. IMPRES CANDIDO: No acute bony abnorm ality. Niru maguire Physic cali: Eladio Lauren ms [facility] (Imaging) [address], [place], [address], 11/04/2024 20:16:52 11/03/19 25 11/03/2024 XR, hand [...] first digit IP joint spurri ng. IMPRES CANDIDO: Third and fourth metaca rpal fractu res. Diffus e DIP joint spurri ng. Niru maguire Physic cali: Eladio Lauren ms [facility] (Imaging) [address] [place], [address], 11/04/2024 20:16:52 11/07/19 25 05/20/2024 DEXA, axial skele ton No observ ation record ed. [address] [place], [address], 11/08/2024 16:31:48 03/10/20 25 03/03/2025 PET, skull base to mid-t high No observ ation record ed. [address], [place] Ramos, [address], 03/10/2025 14:43:59 Result Notes None recorded. Problems Name Problem SNOMED Code Status Onset Date Resolution Date Notes Provider Name and Address Organization Details Recorded Time Pure hypercho lesterol emia 486467515 Active Not Available [facility] 1 09:41:06 History of transien t ischemic attack 487989518 Active approx 2007 on asprinin Svetlana Woodruff MD [address] [place] [address], [address] , [facility] 2 10:50:43 Essentia l hyperten candido 48116474 Completed 11/09/2019 Svetlana Woodruff MD [address] [place] [address], [address] , [facility] 0 16:30:05 Benign essentia l hyperten candido 4565290 Active Svetlana Woodruff MD [address] [place] [address], [address] , [facility] 2 10:50:43 Lumbar sprain 351433360 Completed 09/03/2013 Not Available [facility] 3 02:03:36 Impaired fasting glycemia 877462192 Active Not Available [facility] 1 09:41:06 Headache 97759643 Active 2006 Not Available [facility] 1 09:41:06 Nocturia 445735342 Completed 200611/09/2019 Svetlana Woodruff MD [address] [place] [address], [address] , [facility] 0 16:30:14 Epidermo id cyst of skin 443551510 Completed 200709/03/2013 Not Available [facility] 3 02:02:54 Mixed hyperlip idemia 691500346 Completed 200702/24/2015 Svetlana Woodruff MD [address] [place] [address], [address] , [facility] 5 09:15:36 Essentia l tremor Active 2008 Svetlana Woodruff MD [address] [place] [address], [address] , [facility] 2 10:50:43 Transien t cerebral ischemia 168942063 Active 2008 Not Available [facility] 1 09:41:06 Malignan t neoplasm of prostate 531922515 Active 10/2017 low grade Papillar y urotheli al Carcinom a ? bone mets Svetlana Woodruff MD [address] [place] [address], [address] , [facility] 2 10:50:43 Senile hyperker atosis 939201701 Completed 201811/09/2019 Svetlana Woodruff MD [address] [place] [address], [address] , [facility] 0 16:30:27 Transure thral excision of neoplasm of urinary bladder Active 2018 extraper inotneal bladder perforat ion after TURBT(tr ansureth eral resectio n blader tumor) Not Available [facility] 1 09:41:06 History of cerebrov ascular accident 981581257 Completed 202012/27/2020 Svetlana Woodruff MD [address] [place] [address], [address] , [facility] 1 10:17:58 Malignan t neoplasm of urinary bladder 183363115 Active 2020 recurren ce- well treated. Svetlana Woodruff MD [address] [place] [address], [address] , [facility] 2 09:16:41 Complica cy migraine 065232729 Active 2020 MRI brain - severe microang iopathic changes and mod cerebral atrophy 06/2021 Svetlana Woodruff MD [address] [place] [address], , [facility] 2 10:50:43 Metastas is from malignan t tumor of prostate 479506728 Active 2021 Svetlana Woodruff MD [address] [place] [address], , [facility] 2 10:51:43 Metastas is from malignan t tumor of prostate 380061456 Active 2021 Svetlana Woodruff MD [address] [place] [address], , [facility] 2 10:51:43 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 3350074 Active 2021 Svetlana Woodruff MD [address] [place] [address], , [facility] 4 09:08:28 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/2022- RUL, RML, RLL (likely due to cancer)- continue long-ter m anticoag luation- Eliquis - d/c eliquis on 04/11 per heme/onc BAILEY Romero [address] [place] [address], , [facility] 3 15:26:23 Chronic kidney disease stage 3 770481758 Active 2021 GFR = 59 on 08/28/22 Sherine Bell LPN null, [facility] 2 10:49:25 Low back pain 132348461 Active 2022 BAILEY Romero [address] [place] [address], , [facility] 3 16:50:56 Senile purpura 51620111 Active 2022 BAILEY Romero [address] [place] [address], , [facility] 3 16:52:23 Screenin g for malignan t neoplasm of prostate Active 2022 Svetlana Woodruff MD [address] [place] [address], [address] , [facility] 3 14:40:56 Chronic cerebral ischemia 680978500 Active 2022 CT 09/2023 - moderate ly severe - Dr Kulkarni neuro Svetlana Woodruff MD [address] [place] [address], [address] , [facility] 4 09:08:21 Migraine 59290164 Active 2022 Svetlana Woodruff MD [address] [place] [address], , [facility] 4 09:08:39 Seizure 81820281 Active 2022 Julia Cornell PA-C [address] [place] [address], , [facility] 3 14:37:20 Osteopen ia 686018734 Active 2023 BAILEY Romero [address] [place] [address], [address] , [facility] 4 16:43:14 Metastat ic malignan t neoplasm to prostate 47195085 Active 2023 Svetlana Woodruff MD [address] [place] [address], [address] , [facility] 4 15:36:50 Problem Notes None recorded. Procedures Surgical History Date Name Laterality Status Provider Name and Address Organization Details Recorded Time 024 Wound Care completed Magnolia Ortiz LPN [facility] 08/27/2024 14:08:39 024 Wound Care completed Giles Mc RN [facility] 08/21/2024 12:27:01 024 Post hospital/SNF follow-up/Transit ional Care completed Dorcas Trujillo CMA [facility] 12/26/2023 08:12:52 023 Medicare Wellness Visit completed Milagro Morales, [facility] 09/03/2023 14:28:30 023 Wound Care completed Kimmie Liz LPN [facility] 05/15/2023 14:12:31 022 Post hospital/SNF follow-up/Transit ional Care completed Dorcas Trujillo [facility] 09/15/2022 11:16:14 022 Post hospital/SNF follow-up/Transit ional Care completed Dorcas Trujillo [facility] 08/16/2022 09:41:14 022 Post hospital/SNF follow-up/Transit ional Care completed Dorcas Trujillo [facility] 07/05/2022 08:55:31 022 Medicare Wellness Visit completed Dorcas Trujillo [facility] 11/02/2021 11:15:27 022 Alcohol use screening completed Dorcas Trujillo [facility] 11/02/2021 11:15:27 022 Cardiovascular disease risk reduction counseling completed Dorcas Trujillo [facility] 11/02/2021 11:15:27 021 Post hospital/SNF follow-up/Transit ional Care completed Shahid Braden [facility] 07/22/2021 10:30:04 021 Post hospital/SNF follow-up/Transit ional Care completed Dorcas Trujillo [facility] 07/20/2021 13:36:16 021 Post hospital/SNF follow-up/Transit ional Care completed Dorcas Trujillo [facility] 06/01/2021 10:04:45 021 Physical Activity Counselling completed Oxana Burgess Ms, PT [address] [place], [address], [facility] 04/27/2021 14:31:28 021 [id number]: PT Eval Low Complexity completed Oxana Burgess Ms, PT [address] [place], [address], [facility] 04/27/2021 14:31:22 021 Treatment and Advice completed Oxana Burgess Ms, PT [address] [facility] [place], [address], [facility] 04/27/2021 14:41:28 021 Medicare Wellness Visit completed Britta Rome MA [facility] 03/11/2021 10:09:29 021 prevention-cardio vascular risk reduction counseling completed Britta Rome MA [facility] 03/11/2021 10:09:29 021 prevention-annual alcohol misuse screening completed Britta Rome [facility] 03/11/2021 10:09:29 020 Post hospital/SNF follow-up/Transit ional Care completed Dorcas Trujillo [facility] 07/26/2020 10:46:28 020 Telephonic Visit completed Dorcas Trujillo [facility] 07/26/2020 10:46:21 020 Medicare Wellness Visit [facility] 11:22:15 020 prevention-cardio vascular risk reduction counseling completed [facility] 11/12/2019 11:22:15 020 prevention-annual alcohol misuse screening completed [facility] 11/12/2019 11:22:15 020 Advanced Care Planning [facility] 11/12/2019 11:22:19 019 Post hospital/SNF follow-up/Transit ional Care completed Dorcas Trujillo [facility] 07/11/2019 08:59:31 019 Medicare Risk for Falls Screen completed Dorcas Trujillo [facility] 06/18/2019 08:34:01 019 Medicare Wellness Visit completed Cheo Hamilton [facility] 11/11/2018 11:23:58 018 Medicare Wellness Visit completed Dorcas Trujillo [facility] 11/05/2017 11:27:42 018 Advanced Care Planning completed Svetlana Woodruff MD [address] [place], [address], [facility] 11/05/2017 12:11:46 017 01651: Therapeutic Activities - Direct 1:1 completed Oxana Burgess Ms, PT [address] [place], [address], [facility] 02/28/2017 08:50:32 017 Treatment and Advice completed Oxana Burgess Ms, PT [address] [place], [address], [facility] 02/28/2017 08:45:51 017 Physical Activity Counselling completed Oxana Burgess Ms, PT [address] [place], [address], [facility] 02/19/2017 12:57:50 017 60983: PT Eval Low Complexity completed Oxana Burgess Ms, PT [address] [place], [address], [facility] 02/19/2017 12:57:45 017 Treatment and Advice completed Oxana Burgess Ms, PT [address] [place], [address], [facility] 02/19/2017 12:58:44 010 Treatment and Advice completed Slava [facility] 12/30/2009 15:49:32 010 Treatment and Advice completed [facility] 12/13/2009 10:38:29 Imaging Results None recorded. Procedure Notes None recorded. Medical Equipment None Reported. Allergies Allergen ID Allergen Name Allergen Category Reaction Reaction Severity Criticality Documentation Date Start Date Code Code System Note Provider Name and Address Organization Details Recorded Time 19780617 primidone medicatio n diarrhea dizziness headache moderate moderate severe Not available 04/04/20172016 8691 [facility] 08:36:34 Medications Name Sig Start Date [...] TAKE 1 CAPSULE BY MOUTH EVERY DAY 07/20 completed Not Available Not Available Not Available nystatin- triamcino lone 100,000 unit/g-0. 1 [...] completed Not Available Not Available Not Available ketoconaz ole 2 % topical cream APPLY TO AFFECTED AREA EVERY DAY FOR 2 WEEKS active Not Available Not Available No t Available hydromorp samantha 4 mg tablet TAKE [...] Not Available No t Available naratript an 1 mg tablet TAKE 1 TABLET BY MOUTH TWICE WEEKLY active Not Available Not Available No t Available naratript an 2.5 mg tablet TAKE 1 TABLET TWICE A WEEK BY ORAL ROUTE NEEDED, FOR MIGRAINE . active Not Available Not Available No t Available Adult Aspirin EC Low Strength 81 mg tablet,de layed release 06/07 completed bleeding too much with LOC. Not Available Not Available Not Available ipratropi um bromide 21 mcg (0.03 %) nasal spray INSTILL 2 SPRAYS IN EACH NOSTRIL TWICE A DAY active Not Available Not Available No t Available naproxen 500 mg tablet TAKE 1 TABLET [...] 04/11/23 per hem/onc note - Not taking 3 tv Not Available Not Available Not Available Eligard (6 month) 45 mg q 6 mo 01/08 completed not sure taking. Not Available Not Available Not Available Flucelvax Quad 7865-5139 (PF) 60 mcg (15 mcg x 4)/0.5 mL IM syringe TO BE ADMINIST ERED BY PHARMACI ST FOR IMMUNIZA TION 11/05 completed Not Available Not Available Not Available magnesium 200 mg (as magnesium oxide) tablet Take 1 tablet twice a day by oral route. 06/18 completed Not Available Not Available Not Available Fluad 2017- 65yr up(PF)45 mcg(15 mcgx3)/0. 5 mL intramusc ular syringe TO BE ADMINIST ERED BY PHARMACI FOR IMMUNIZA TION 12/31 completed Not Available Not Available Not Available Emgality 120 mg/mL subcutane ous syringe INJECT 1 ML SUBCUTAN EOUS MONTHLY 30 DAYS 01/08 completed Not Available Not Available Not Available Vitals Date Recorded Body height Body mass index (BMI) Body weight Heart rate Oxygen saturation Oxygen saturation in Arterial blood by Pulse oximetry Systolic And Diastolic Provider Name and Address Organization Details Last Updated DateTime 173.99 cm 34.6 kg/m2 846775. 84 g 68 /min 98 % 98 % 152/92 mm[Hg] Dorcas Trujillo CMA [facility] 09:58:10 Date Recorded Body height Body mass index (BMI) Body weight Heart rate Systolic And Diastolic Provider Name and Address Organization Details Last Updated DateTime 12/19/2024 173.99 cm 35.1 kg/m2 265360.6 1 g 76 /min 136/76 mm[Hg] Lisandra Gunn [facility] 12/19/2024 13:35:35 Date Recorded Body height Provider Name an d Address Organization Details Last Updated DateTime 01/14/2025 173.99 cm [facility] 01/14/2025 09:53:42 Date Recorded Body height Provider Name an d Address Organization Details Last Updated DateTime 03/18/2025 173.99 cm [facility] 03/18/2025 14:07:16 Date Recorded Body height Body mass index (BMI) Body weight Oxygen saturation Oxygen saturation in Arterial blood by Pulse oximetry Heart rate Systolic And Diastolic Systolic And Diastolic Provider Name and Address Organization Details Last Updated DateTime 173.99 cm 34.3 kg/m2 766328. 65 g 97 % 97 % 98 /min 132/78 mm[Hg] 117/67 mm[Hg] Dorcas Trujillo CMA [facility] 15:56:14 Social History Question Answer Notes LastModified by Organizat ion Details LastModified Time Tobacco Smoking Status Never Smoker Not Available [facility] 08/31/2011 04:52:47 Do You Wear A Helmet When Biking? No N/a Information not available 02/24/2015 What Is Your Level Of Caffeine Consumption? None 4-5 Diet Coke Per Day Information not available 02/24/2015 How Much Tobacco Do You Chew? None Information not available 02/24/2015 What Type Of Diet Are You Following? REGULAR [email or web address] Information not available 05/24/2012 Which Illicit Or Recreational Drugs Have You Used? 0 Information not available 02/24/2015 Education 12 Information no t available 02/24/2015 What Is The Highest Grade Or Level Of School You Have Completed Or The Highest Degree You Have Received? [id number] [email or web address] Information not available 09/04/2023 How Many Days [...] Care Proxy Signed And In Chart Yes [email or web address] Information not available 05/24/2012 MOLST Form Signed And In Chart 05/16/2021 Information not available 06/03/2021 CCM Consent Discussion 11/05/2017 Information not available 11/09/2017 Marital Status Florencia- 1994 [email or web address] Information not available 10/29/2009 Mosquito Repellent Used Routinely No Information not available 02/24/2015 What Was The Date Of Your Most Recent Tobacco Screening? 03/23/2025 Information not available 03/23/2025 How Many Children Do You Have? 0 Information not available 02/24/2015 What Is Your Relationship Status? [email or web address] Information not available 07/20/2023 Do You Use [...] is your level of alcohol consumption? None [email or web address] Information not available 12/24/2012 Do you or have you ever used smokeless tobacco? Never used smokeless tobacco Information not available 03/11/2021 Are you currently employed? No Information not available 12/26/2023 What is your occupation? Retired-[employer] [facility] Information not available 03/15/2021 Do you or have you ever used e-cigarettes or vape? Never used electronic cigarettes Information not available 03/11/2021 What is your exercise level? Moderate [email or web address] Information not available 09/04/2023 Mental Status None recorded. Family History Relationship Description Onset Age of this Age Resolved Age Notes LastModified by Organization Details LastModified Time Mother Diabetes mellitus also heart diseas e [email or web address] Not available 11/12/2019 12:01:02 Mother Cerebrovascu lar accident in her 40's [email or web address] Not available 03/15/2021 16:37:28 Brother Problem [email or web address] Not availabl e 11/12/2019 12:01:17 Brother Leukemia (morphologic abnormality) Germán vikram Not available 10/2020 16:37:01 Father Malignant neoplastic disease stomac h cancer r [facility] Not available 11/12/2019 12:00:22 Medical History Condition Response Transient Ischemic Attack Y NEUROLOGIC Y Hypertension Y EYE Y Immunizations Vaccine Type Date Status Note Provider Nam e and Address Organization Details Recorded Time Influenza, split virus, trivalent, preservative 1 completed Not Available [facility] 11/01/2019 02:18:14 influenza, unspecified formulation 7 completed Not Available [facility] 11/26/2023 17:23:20 influenza, unspecified formulation 7 completed Not Available [facility] 11/26/2023 17:23:20 influenza, unspecified formulation 7 completed Not Available [facility] 11/26/2023 17:23:20 Td(adult) unspecified formulation 8 completed Not Available [facility] 11/26/2023 17:23:21 influenza, unspecified formulation 8 completed Not Available [facility] 11/26/2023 17:23:20 influenza, seasonal, intradermal, preservative free 2 completed Not Available [facility] 11/01/2019 02:18:38 Influenza, split virus, trivalent, preservative 9 completed Not Available [facility] 11/01/2019 02:17:26 Tdap 3 completed Not Available [facility] 11/01/2019 02:26:36 Influenza, split virus, quadrivalent, PF 3 completed Not Available [facility] 11/01/2019 02:37:08 Novel [id number] 0 completed Not Available [facility] 11/01/2019 02:32:30 Influenza, split virus, trivalent, PF 4 completed Not Available [facility] 11/01/2019 02:33:40 Influenza, split virus, quadrivalent, PF 5 completed Not Available [facility] 11/01/2019 02:20:10 Influenza, split virus, quadrivalent, PF 6 completed Not Available [facility] 11/01/2019 02:20:45 Pneumococcal conjugate PCV 13 9 completed Not Available [facility] 11/01/2019 02:23:33 Influenza, high-dose, trivalent, PF 9 completed Not Available [facility] 11/01/2019 02:29:52 Influenza, split virus, quadrivalent, preservative 7 completed Yolanda Benoit MA null, [facility] 07/24/2024 10:26:55 zoster, unspecified formulation 7 completed Not Available [facility] 11/26/2023 17:23:20 influenza, unspecified formulation 8 completed Not Available [facility] 11/26/2023 17:23:20 Influenza, high-dose, quadrivalent, PF 0 completed Madelyn Wilkinson Daisy null, [facility] 08/07/2020 09:38:52 Influenza, high-dose, quadrivalent, PF 1 completed Dorcas Trujillo CMA null, [facility] 07/27/2021 14:51:38 Influenza, split virus, trivalent, preservative 0 completed Not Available [facility] 11/01/2019 02:17:47 Influenza, high-dose, quadrivalent, PF 2 completed Svetlana Woodruff MD [address] [place] [address], [phone], [facility] 07/05/2022 18:47:59 COVID-19, mRNA, LNP-S, PF, 100 mcg/0.5mL dose or 50 mcg/0.25mL dose 1 completed Not Available [facility] 11/26/2023 17:23:20 COVID-19, mRNA, LNP-S, PF, 100 mcg/0.5mL dose or 50 mcg/0.25mL dose 1 completed Not Available [facility] 11/26/2023 17:23:20 Influenza, high-dose, quadrivalent, PF 3 completed Svetlana Woodruff MD [address] [place] [address], [phone], [facility] 07/20/2023 10:22:39 Influenza, high-dose, trivalent, PF 4 completed Svetlana Woodruff MD [address] [place] [address] [place], [phone], [facility] 07/01/2024 15:16:06 Td (adult), 2 Lf tetanus toxoid, preservative free, adsorbed 4 completed BAILEY Pacheco [address] [place], [address], [facility] 08/23/2024 10:58:43 COVID-19, mRNA, LNP-S, PF, 100 mcg/0.5mL dose or 50 mcg/0.25mL dose 1 completed Not Available [facility] 11/26/2023 17:23:20 COVID-19, mRNA, LNP-S, PF, eleazar-sucrose, 30 mcg/0.3 mL 4 completed Dorcas Trujillo [facility], [facility] 06/20/2024 11:56:52 Influenza, MDCK, quadrivalent, PF 7 completed Yolanda Benoit [facility], [facility] 07/24/2024 10:26:55 Past Encounters Encounter ID Performer Location Encounter Start Date Encounter Closed Date Diagnosis/Indication Diagnosis SNOMED-CT Code Diagnosis ICD10 Code Diagnosis Note [id number] KAMI Cuevas, [facility], OFFICE [address] [place] [address] 6 12/28/2006 15:35:21 12/28/2006 16:20:03 [id number] [facility] FLU CLINIC YESSI, [facility], OFFICE [address] [place] [address] 6 08/21/2007 08:35:00 11/04/2008 02:02:29 [id number] MD YESSI Ortega, [facility], OFFICE [address] [place] [phone] 6 08/30/2007 10:29:11 11/04/2008 02:02:29 [id number] [facility] LAB LAB - [address] [address] 6 09/25/2007 08:23:28 09/25/2007 08:39:19 [id number] MD YESSI Ortega, [facility], OFFICE [address] [place] [phone] 6 03/20/2008 08:45:05 11/04/2008 02:02:29 [id number] Rajan Graff MD , [facility], OFFICE [address] [place] [address] 03/21/2008 08:58:28 11/04/2008 02:02:29 [id number] Rajan Graff MD , [facility], OFFICE [address] [facility] [place] [address] 03/23/2008 09:09:03 11/04/2008 02:02:29 [id number] Rajan Graff MD , [facility], OFFICE [address] [place] [address] 08/31/2008 09:24:45 11/04/2008 02:02:29 [id number] [facility] - [facility] [address] [facility] [place] [facility] [address] 09/01/2008 08:17:15 09/01/2008 08:19:46 [id number] Svetlana Woodruff MD , [facility], OFFICE [address] [facility] [place] [address] 11/04/2008 14:36:15 11/17/2008 02:02:00 [id number] Svetlana Woodruff MD , [facility], OFFICE [address] [facility] [place] [address] 11/18/2008 08:46:15 11/19/2008 16:05:24 [id number] Svetlana Woodruff MD , [facility], OFFICE [address] [facility] [place] [address] 12/28/2008 09:27:01 12/30/2008 13:40:01 [id number] Svetlana Woodruff MD , [facility], OFFICE [address] [facility] [place] [place] [address] 03/01/2009 09:56:33 03/03/2009 11:06:43 [id number] [facility] FLU CLINIC , [facility], OFFICE [address] [facility] [place] [place] [address] 09/28/2009 07:32:51 09/30/2009 14:54:40 [id number] MD YESSI Mckay, [facility], OFFICE [address] [place] [address] 10/29/2009 13:56:47 11/03/2009 10:41:39 [id number] Svetlana Woodruff MD , [facility], OFFICE [address] [facility] [place] [address] 11/26/2009 13:35:33 11/30/2009 11:15:04 [id number] [facility] [employer] PERSONAL ASSISTANT Radiology , [address] [place] [address] 11/26/2009 14:22:11 11/29/2009 11:37:20 [id number] Svetlana Woodruff MD , [facility], OFFICE [address] [facility] [place] [address] 12/10/2009 09:53:06 12/16/2009 09:03:11 [id number] rFandy Ballard DPT Physical Therapy, [address] [place] [address] 12/13/2009 09:33:44 12/13/2009 16:48:04 [id number] Frandy Ballard DPT Physical Therapy, [address] [place] [address] 12/30/2009 15:26:33 12/31/2009 11:40:39 [id number] Frandy Ballard DPT Physical Therapy, [address] [place] [address] 01/06/2010 15:23:51 01/07/2010 10:10:12 [id number] [facility] FLU [facility]IC , [facility], OFFICE [address] [facility] [place] [address] 07/20/2010 07:38:55 07/25/2010 15:40:50 [id number] Svetlana Woodruff MD , [facility], OFFICE [address] [facility] [place] [address] 09/02/2010 09:24:28 09/07/2010 10:20:58 [id number] MD YESSI Karimi, [facility], OFFICE [address] [facility] [place] [address] 02/10/2011 11:48:30 02/14/2011 14:09:33 [id number] Frandy Ballard, DPT Physical Therapy, [facility] [address] [place] [facility] [place] [address] 02/15/2011 16:04:35 02/16/2011 12:39:19 [id number] Frandy Ballard, DPT Physical Therapy, [facility] [address] [place] [facility] [place] [address] 02/20/2011 08:24:19 02/20/2011 09:13:23 [id number] Svetlana Woodruff MD , [facility], OFFICE [address] [place] [facility] [place] [address] 02/20/2011 10:41:56 02/23/2011 14:38:48 [id number] Frandy Ballard, DPT Physical Therapy, [facility] [address] [facility] [place] [address] 02/23/2011 11:53:05 02/23/2011 15:38:00 [id number] Svetlana Woodruff MD , [facility], OFFICE [address] [facility] [place] [address] 03/20/2011 09:18:31 03/22/2011 08:05:00 [id number] Svetlana Woodruff MD , [facility], OFFICE [address] [facility] [place] [address] 03/20/2011 09:55:32 03/22/2011 08:15:54 [id number] [facility] Radiology , [facility] [address] [facility] [place] [place] [address] 03/20/2011 10:12:43 03/21/2011 11:45:14 [id number] Svetlana Woodruff MD , [facility], OFFICE [address] [facility] [place] [address] 04/10/2011 08:21:52 04/10/2011 09:29:40 [id number] Svetlana Woodruff MD , [facility], OFFICE [address] [facility] [place] [place] [address] 04/10/2011 09:18:34 04/10/2011 09:29:46 [id number] [facility] FLU CLINIC FP, [facility], OFFICE [address] [place] [address] 6 08/02/2011 07:15:06 08/03/2011 14:46:05 [id number] Svetlaan Woodruff MD FP, [facility], OFFICE [address] [place] [address] 6 12/18/2011 08:48:52 12/18/2011 09:37:24 [id number] MD YESSI Mckay, [facility], OFFICE [address] [place] [address] 6 05/24/2012 13:37:35 05/24/2012 14:37:04 [id number] [facility] FLU CL[facility]IC , [facility], OFFICE [address] [place] [address] 6 06/27/2012 07:11:50 06/27/2012 15:31:09 [id number] MD YESSI Mckay, [facility], OFFICE [address] [place] [address] 6 12/24/2012 15:43:52 12/24/2012 16:17:12 [id number] MD YESSI Mckay, [facility], OFFICE [address] [place] [address] 6 07/29/2013 13:41:07 07/29/2013 14:36:06 Administration of diphtheria, pertussis, and tetanus vaccine 165366431 Influenza vaccine needed 8607153922 106 Benign ess ential hypertension 4946969 Pure hypercholesterolemia 015079782 History of transient ischemic attack 585099280 Impaired f asting glycemia 510458807 Adult [facility] examination 711429880 see Risk Assesment and Lifestyle Change Couseling section above [id number] MD YESSI Mckay, [facility], OFFICE [address] [place] [address] 6 01/30/2014 10:53:40 01/30/2014 11:36:22 Benign essential hypertension 1524642 Blood pressure at goal Pure hypercholesterolemia 202093743 [id number] MD YESSI Mckay, [facility], OFFICE [address] [place] [address] 6 07/31/2014 08:29:22 07/31/2014 09:17:39 Adult health examination 839764611 see Risk Assessment and Lifestyle Change Counseling section above Counseling 873007279 Influenza vaccine needed 0073476401 106 Benign ess ential hypertension 7125213 Impaired f asting glycemia 850156528 Mixed hyperlipidemia 062689204 Resting tremor 13514632 [id number] Svetlana Woodruff MD , [facility], OFFICE [address] [place] [address]15[address] 6 11/18/2014 13:25:54 11/18/2014 14:15:53 Right lower quadrant pain 997014713 [id number] Svetlana Woodruff MD FP, [facility], OFFICE [address] [place] [address] 6 02/24/2015 08:47:55 02/24/2015 09:43:29 Varicella vaccination 05366692 Benign ess ential hypertension 6819605 Pure hypercholesterolemia 695494479 History of transient ischemic attack 073866821 Epidermoid cyst of skin 883106507 [id number] Rajan Graff MD , [facility], OFFICE [address] [place] [address] 6 08/18/2015 07:18:16 08/18/2015 16:11:21 Active or passive immunization 574774766 Z23 [id number] Svetlana Woodruff MD , [facility], OFFICE [address] [place] [address] 6 09/07/2015 08:37:35 09/07/2015 09:25:20 Screening for disorder 780083520 Z11.59 Headache 81038368 R51 [id number] Svetlana Woodruff MD , [facility], OFFICE [address] [place] [address] 6 10/27/2015 16:07:23 10/27/2015 16:50:28 Adult health examination 447192111 Z00.00 see Risk Assessment and Lifestyle Change Counseling section above Benign ess ential hypertension 1348928 I10 History of transient ischemic attack 390539164 Z86.73 [id number] Svetlana Woodruff MD , [facility], OFFICE [address] [place] [address]582 6 05/29/2016 09:12:00 05/29/2016 10:15:41 Benign essential hypertension 9711217 I10 Impaired f asting glycemia 733076896 R73.01 [id number] Rajan Graff MD , [facility], OFFICE [address] [place] [address] 6 07/12/2016 14:16:29 07/12/2016 14:37:42 Active or passive immunization 288577799 Z23 [id number] Svetlana Woodruff MD , [facility], OFFICE [address] [place] [address] 8[address]71[address] 6 10/30/2016 11:05:46 10/30/2016 11:59:05 Benign essential hypertension 3396796 I10 Pure hypercholesterolemia 957995676 E78.00 Impaired f asting glycemia 225961948 R73.01 Adult heal th examination 606593734 Z00.00 see Risk Assessment and Lifestyle Change Counseling section above [id number] Svetlana Woodruff MD , [facility], OFFICE [address] [place] [address] 6 02/06/2017 15:12:08 02/06/2017 15:39:34 Unilateral hearing loss 36275310 H91.92 Pain in lower limb 56181 006 M79.651 Essential tremor 1428926 09 G25.0 [id number] Oxana Burgess Ms, PT Physical Therapy, [address] [address] 02/19/2017 08:59:56 02/19/2017 13:56:03 Pain in right lower limb 769186745 M79.848 [id number] Oxana Burgess Ms, PT Physical Therapy, [address] [address] 6 02/28/2017 08:25:03 02/28/2017 13:18:36 Pain in right lower limb 968569063 M79.942 [id number] Svetlana Woodruff MD , [facility], OFFICE [address] [place] [address] 6 03/09/2017 08:41:04 03/09/2017 09:20:52 Onychomycosis 411578851 B35.1 Essential tremor 9443425 09 G25.0 Dysfunctio n of eustachian tube 52835973 H69.93 Benign ess ential hypertension 8545317 I10 [id number] Svetlana Woodruff MD , [facility], OFFICE [address] [place] [address] 6 03/16/2017 10:28:47 03/16/2017 11:15:22 Essential tremor 033986507 G25.0 Benign ess ential hypertension 5174744 I10 [id number] Svetlana Woodruff MD , [facility], OFFICE [address] [place] [address] 6 04/04/2017 08:25:40 04/04/2017 08:55:06 Essential tremor 371894241 G25.0 Benign ess ential hypertension 1621213 I10 [id number] Svetlana Woodruff MD , [facility], OFFICE [address] [place] [address] 6 05/04/2017 09:35:53 05/04/2017 10:19:31 Unintentional weight loss 815414190 R63.4 C-reactive protein outside reference range 947453177 R79.82 Hereditary essential tremor 644273238 G25.0 Dysfunctio n of eustachian tube 60427180 H69.93 [id number] Svetlana Woodruff MD , [facility], OFFICE [address] [place] [address] 6 11/05/2017 11:07:39 11/05/2017 12:21:41 Adult health examination 385681095 Z00.00 see Risk Assessment and Lifestyle Change Counseling section above Counseling 206904145 Z71 .9 Benign ess ential hypertension 5830741 I10 Blood pressure at goal Advance di rective discussed with patient 893056148 Z71.89 Screening for disorder 784751566 Z11.59 Essential tremor 4803429 01 G25.0 History of transient ischemic attack 886156758 Z86.73 Impaired f asting glycemia 486457411 R73.01 [id number] Svetlana Woodruff MD , [facility], OFFICE [address] [place] [address] 6 12/10/2017 11:41:48 12/10/2017 12:35:36 Benign essential hypertension 1625050 I10 Blood pressure at goal History of transient ischemic attack 050955584 Z86.73 Impaired f asting glycemia 057116202 R73.01 Prostate s pecific antigen above reference range 839818942 R97.20 [id number] Svetlana Woodruff MD , [facility], OFFICE [address] [place] [address] 6 12/31/2017 09:28:44 12/31/2017 11:53:13 Malignant neoplasm of prostate 641012873 C61 History of transient ischemic attack 351292039 Z86.73 [id number] Svetlana Woodruff MD , [facility], OFFICE [address] [place] [address] 6 05/15/2018 11:41:27 05/15/2018 13:01:39 Headache 43347983 R51 Malignant neoplasm of prostate 556936220 C61 [id number] Svetlana Woodruff MD , [facility], OFFICE [address] [place] [address]81[address] 6 05/31/2018 09:41:39 05/31/2018 10:17:50 Benign essential hypertension 4305275 I10 Blood pressure at goal of less than 140/90 History of transient ischemic attack 920321821 Z86.73 Malignant neoplasm of prostate 182384348 C61 Migraine 32296987 G43.90 [id number] Svetlana Woodruff MD , [facility], OFFICE [address] [place] [address] 6 06/05/2018 14:56:28 06/05/2018 15:58:38 Elliott hematuria 874440461 R31.0 [id number] Svetlana Woodruff MD , [facility], OFFICE [address] [place] [address] 6 11/11/2018 11:10:57 11/11/2018 12:03:47 Adult health examination 524815125 Z00.00 see Risk Assessment and Lifestyle Change Counseling section above Counseling 976626576 Z71 .9 Depression screening 171 696417 Z13.89 depression screening tool administer ed, entered into emr, scored and discussed Active or passive immunization [id number] Z23 Headache 52676454 R51 Screening for malignant neoplasm of colon 818488043 Z12.11 Referral for a DIRECT booked colonoscop y. This patient is a healthy ASA Class 1 or 2 patient (only mild systemic disease), or a STABLE, well controlled insulin dependent diabetic. They do not have serious cardiac disease ie GA/angiopl asty within 1 year, symptomati c CHF; renal failure with CKD 4 or 5; take Coumadin, Plavix, Aggrenox, etc. Epidermoid cyst of skin 178041771 L72.0 reassuranc e [id number] Natalia Cm MD , [facility] OFFICE [address] [place] [address] 46955-497 6 12/11/2018 09:38:11 12/11/2018 12:09:47 Senile hyperkeratosis 080585978 L82.1 Seborrheic Keratosis: Discussed one of the most common noncancero us skin growths in older adults. A seborrheic keratosis usually appears as a brown, black or light gutierrez growth on the face, chest, shoulders or back. The growth has a waxy, scaly, slightly elevated appearance . Dr. Woodruff also took a look and confirmed it. Handout provided. [id number] Svetlana Woodruff MD , [facility] OFFICE [address] [place] [address] 74613-417 6 12/31/2018 14:00:23 12/31/2018 16:44:14 Influenza caused by Influenza A virus 006825026 J09.X2 Impairment of balance 38 3832392 R26.89 [id number] Svetlana Woodruff MD , [facility] [address] [place] [address] 13967-720 6 05/16/2019 07:56:39 05/16/2019 08:35:49 Malignant neoplasm of prostate 138274920 C61 Benign ess ential hypertension 4703215 I10 Blood pressure at goal of less than 140/90 Abnormal weight gain 161 576035 R63.5 Epidermoid cyst of skin 588024549 L72.0 [id number] Svetlana Woodruff MD , [facility] [address] [place] [address] 50169-790 6 06/18/2019 08:31:57 06/18/2019 09:15:10 Abnormal gait due to impairment of balance 216436219 R26.89 Essential hypertension 20270876 I10 At goal of less than 130/80, continue meds. Headache 86108567 R51 Can use tylenol. Use Mg a dn riboflavin if needed. [id number] Svetlana Woodruff MD , [facility] [address] [place] [address] 76410-912 6 07/11/2019 13:23:18 07/11/2019 13:55:37 Active or passive immunization 927016392 Z23 Malignant neoplasm of prostate 357283393 C61 Acute nont raumatic kidney injury 1296574594 56487 N17.9 [id number] Svetlana Woodruff MD , [facility] [address] [place] [address] 77969-215 6 08/18/2019 11:42:08 08/18/2019 12:20:02 Malignant neoplasm of prostate 049258334 C61 Fatigue 96953122 R53.83 Dyspnea on exertion 6084 5006 R06.09 [id number] Svetlana Woodruff MD , [facility] [address] [place] [address] 39341-547 6 09/17/2019 09:42:34 09/17/2019 14:19:00 Cough 75881492 R05 rec: robitussin DM Benign ess ential hypertension 2342214 I10 Blood pressure at goal of less than 140/90 Migraine 21060690 G43.90 9 continue magnesium Mixed hyperlipidemia 267 448294 E78.2 [id number] Svetlana Woodruff MD , [facility] [address] [place] [address] 33177-782 6 11/12/2019 11:09:30 11/12/2019 12:05:13 Adult health examination 940174331 Z00.00 see Risk Assessment and Lifestyle Change Counseling section above Counseling 696934775 Z71 .9 including cardiovasc ular risk reduction counseling Depression screening 171 387548 Z13.89 depression screening tool administer ed, entered into emr, scored and discussed Advance di rective discussed with patient 274705030 Z71.89 Benign ess ential hypertension 9988736 I10 Blood pressure at goal of less than 130/80. discussed diet Malignant neoplasm of urinary bladder 277023432 C67.9 continue seeing urologist and taking chem drug- b[place] de [id number] Svetlana Woodruff MD , [facility] [address] [place] [address] 09977-902 6 02/17/2020 17:01:08 02/18/2020 10:18:10 Dyspnea on exertion 14124928 R06.09 resolved, restrictio n on PFT, nl DLCO so extrinsive issue. Malignant neoplasm of prostate 445602550 C61 discusse new medication , Xtandi-and rogen receptor antagonist , stay on the tamsulosin - helping urination/ nocturia Benign ess ential hypertension 3598022 I10 Blood pressure not at goal of less than 130/80. discussed diet go to 10 mg lisnopril. continue tamsulosin . watch the GILMORE. Nocturia 422838056 R35.1 [id number] Svetlana Woodruff MD , [facility] [address] [place] [address] 45389-830 6 05/12/2020 10:56:54 05/13/2020 15:30:19 Essential hypertension 48679743 I10 At goal of less than 130/80, continue meds. 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 Low back pain 780511105 M54.5 want to reveiw the spine x-ray report from ER. [id number] Svetlana Woodruff MD , [facility] [address] [place] [address] [phone] 6 07/26/2020 10:46:02 07/28/2020 10:48:38 Benign essential hypertension 7357331 I10 Blood pressure not at goal of less than 130/80.rec recheck in 1-2 month Malignant neoplasm of urinary bladder 061372583 C67.9 continue seeing urologist and taking chem drug- bicalut[place] de [id number] Svetlana Woodruff MD , [facility] [address] [place] [address] 6 08/07/2020 06:48:08 08/09/2020 11:18:30 Active or passive immunization 872989995 Z23 [id number] Svetlana Woodruff MD , [facility] [address] [place] [address] 6 11/12/2020 08:03:51 11/15/2020 10:20:25 Near syncope 977047969 R55 suspected vasovagal. continue lisinopril Headache 06460941 R51.9 for years. worse w/o sleep. Riboflavin 200 mg. . contniue magnesium and D3. Malignant neoplasm of urinary bladder 543987965 C67.9 continue seeing urologist and taking chem drug- continue xeeing uronolgy. Consider getting the colonoscop y when things are more stable. Malignant neoplasm of prostate 320839242 C61 continue urol. [id number] Svetlana Woodruff MD , [facility] [address] [place] [address] 6 12/27/2020 09:31:37 12/28/2020 09:55:33 Essential hypertension 08717400 I10 At goal of less than 130/80, continue meds. recheck labs for the potassium, if going up will need to stop lisinopril and use Calcim channel rigoberto. Diuretic not aldridge given his already frequent urination Malignant neoplasm of prostate 071761207 C61 continue urol. Malignant neoplasm of urinary bladder 462504948 C67.9 continue seeing urologist and taking chem drug- continue seeing uronolgy. Consider getting the colonoscop y when things are more stable. History of transient ischemic attack 278476705 Z86.73 contninue aspirin Hypokalemia 94083125 E87 .6 recheck lab. will get labs sent to me. [id number] Svetlana Woodruff MD , [facility] [address] [place] [address] 6 03/15/2021 15:41:42 03/18/2021 14:57:37 Adult health examination 275933119 Z00.00 see Risk Assessment and Lifestyle Change Counseling section above Eat more meals less snacks. Counseling 546962439 Z71 .9 including cardiovasc ular risk reduction counseling . aspirin therapy( which should be restarted given CVA Depression screening 171 111017 Z13.31 depression screening tool administer ed, entered into emr, scored and discussed. Screening for alcohol abuse 831766458 Z13.39 Essential hypertension 89678681 I10 At goal of less than 130/80, continue meds. rechecked labs for the potassium, 5.8 . stop lisinopril . If BP rises, add calcium channel rigoberto. Osteopenia 256125267 M85 .80 continue vit D and dietary calcium( milk). Malignant neoplasm of prostate 715276017 C61 continue urol. Malignant neoplasm of urinary bladder 941279073 C67.9 continue seeing urologist and taking chem drug- continue seeing uronolgy. Consider getting the colonoscop y when things are more stable. Fatigue 29682663 R53.83 Abnormal g ait due to impairment of balance 831811984 R26.89 see PT. Drug-induc ed hyperkalemia 572621714 E87.5 as above. [id number] Svetlana Woodruff MD , [facility] [address] [place] [address] 6 04/04/2021 08:31:04 04/06/2021 12:15:26 Essential hypertension 09043145 I10 Not at goal of less than [...] up to 5 mg next time. Headache 20739743 R51.9 for years. worse w/o sleep. Riboflavin 200 mg. . contniue magnesium and D3. better Drug-induc ed hyperkalemia 820678887 E87.5 resovled, see above. [id number] Oxana Burgess Ms, PT Physical Therapy, [facility] [address] [place] [address] 6 04/27/2021 11:30:07 04/27/2021 16:14:26 Abnormal gait due to impairment of balance 372769045 R26.89 [id number] Svetlana Woodruff MD , [facility] [address] [place] [address] 37864-630 6 06/01/2021 09:56:06 06/01/2021 20:32:13 Abnormal gait due to impairment of balance 244404025 R26.89 see PT. Essential hypertension 53306399 I10 With regard to blood pressure we [...] MG AMLODIPINE . Malignant neoplasm of prostate 329005353 C61 and BPH, will do the flomax continueat ion and using BID xtandi [id number] Svetlana Woodruff MD , [facility] [address] [place] [address] 58889-808 6 06/17/2021 14:05:20 06/17/2021 20:17:00 Headache 58195015 R51.9 for years. worse w/o sleep. Riboflavin 200 mg. . contniue magnesium and D3. stop amlodipine . start propranolo l. f/u 2-3 wks. Benign ess ential hypertension 4640524 I10 Blood pressure not at goal of less than 130/80.rec recheck in 1-2 month Recurrent falls 32973832 2 R29.6 reboot the PT [id number] Svetlana Woodruff MD , [facility] [address] [place] [address] 58682-544 6 07/01/2021 08:14:28 07/01/2021 08:41:59 Headache 00356920 R51.9 for years. worse w/o sleep. conitnue Riboflavin 100 mg. . contniue magnesium and D3.continu e propranolo l low dose; since pulse at 52 can't increase it. Not sure if the GILMORE's are improved or just ebbing and flowing. [id number] Svetlana Woodruff MD , [facility] [address] [place] [address] 21920-492 6 07/20/2021 13:29:35 07/22/2021 14:10:09 Complicated migraine 008664063 G43.109 on low dose topiramate . continue and f/u 1-2 wks( has appt) and if ok will do rf tomopmax and if worseining will increase dose. Hypotensive episode 6776 3001 I95.9 likely from low dose propranolo l stop [id number] Svetlana Woodruff MD , [facility] [address] [place] [address] 95775-709 6 07/27/2021 14:24:07 07/29/2021 11:06:13 Migraine 81029878 G43.909 continue magnesium , B2. and increase topiramate to twice a day. Hypotensive episode 6776 3001 I95.9 continue off of the propraonol ol. Active or passive immunization 152845673 Z23 [id number] Celia Yu DNP, [employer]LET[employer] , [facility] OFFICE [address] [place] [address] 64228-257 6 08/31/2021 14:54:49 09/21/2021 09:26:51 Complicated migraine 772433365 G43.109 ChronicRef illed topiramate 25 mgf/u with pcp Dizziness 222281694 R42 Ambulate w/ cane, walkercaut ion w/ dizzinessf /U in 1 month w/ Dr. Woodruff. Ecchymosis 130510742 R58 Resolving, from fall and aspirin usemonitor . f/U with PCP. Fall W19.XXXA Reviewed ER paperworkI ce vs heat for his backREstCa ution, use cane or wheelchair as neededRed flags for emergent care reviewedFo llow up w/ Dr. Woodruff [id number] Svetlana Woodruff MD , [facility] [address] [place] [address] 12923-568 6 10/12/2021 11:47:58 10/14/2021 15:11:33 Staring 279618417 H51.8 Rec: neuro and rec: [id number] Svetlana Woodruff MD , [facility] [address] [place] [address] 05430-950 6 11/02/2021 10:53:32 11/03/2021 13:54:09 Bleeding from nose 291130308 R04.0 saline spray. samples given Seizure 17903790 R56.9 staring spells- already better on 250 BID leviterice fernandes. Benign ess ential hypertension 8008149 I10 Blood pressure at goal of less than 130/80.con tinue w/o meds Headache 05122640 R51.9 continue the leviterice fernandes started 10/2021- helping. f/u with Dr. Gonzalez sosa dney disease stage 3 266790814 N18.30 recheck the lab 3 mo [id number] Svetlana Woodruff MD , [facility] [address] [place] [address] 17158-920 6 01/25/2022 09:43:14 01/25/2022 10:21:40 Seizure 94947174 R56.9 staring spells- already better on 250 BID leviterice fernandes. Bleeding from nose 24240 6005 R04.0 saline spray. samples given Benign ess ential hypertension 2692790 I10 Blood pressure at goal of less than 130/80.con tinue w/o meds Headache 59145669 R51.9 continue the leviterice fernandes started 10/2021- helping. f/u with Dr. Gonzalez sosa dney disease stage 3 718597320 N18.30 stable Low back pain 654276706 M54.50 R -sided Dyspnea 310257099 R06.00 restrictio n 2019, otherwise normal. echo 2020- grade 1 diastolic dysfunctio n. Rec: graded exercise. [id number] Svetlana Woodruff MD , [facility] [address] [place] [address] 6 04/28/2022 11:19:05 04/28/2022 11:57:44 Seizure 27921011 R56.9 with LOC. continue with increased dose of levitirace fernandes. suspect migraine related. Complicated migraine 193 806046 G43.109 With aura of nausea, then GILMORE< then seiszre. continue topiramate 50 mg. BID Keep neuro appt 05/08/22 Metastasis from malignant tumor of prostate 539984642 C61 continue testing and treatment. [id number] Svetlana Woodruff MD , [facility] [address] [place] [address] 6 06/07/2022 11:36:21 06/07/2022 12:46:09 Seizure disorder 043147299 G40.909 Low back pain 574627358 M54.50 R -sided pain over R PSIS. rec check X-ray. ok to take2 aleve BID. Essential hypertension 85415354 I10 hold increasein g bp meds as last time was low and in more pain today. would add in amlodipine 2.5 f/u 1 mo Malignant neoplasm of urinary bladder 234765313 C67.9 continue seeing urologist and taking chem drug- continue seeing urology. Consider getting the colonoscop y when things are more stable. [id number] Svetlana Woodruff MD , [facility] [address] [place] [address] 6 07/05/2022 08:44:20 07/05/2022 12:52:43 Screening for malignant neoplasm of colon 797444330 Z12.11 declines for now. will do after gets cancer treatment . Active or passive immunization 773087589 Z23 Seizure disorder 6731441 02 G40.909 stable more or less. continue the topiramate and leveiteric etam Malignant neoplasm of prostate 268402560 C61 and BPH, will do the flomax continueat ion and using BID xtandi Malignant neoplasm of urinary bladder 733012148 C67.9 continue seeing urologist and taking chem drug- continue seeing urology. Consider getting the colonoscop y when things are more stable. Chronic ki dney disease stage 3 789120345 N18.30 stable but stop aleve. [id number] Svetlana Woodruff MD , [facility] [address] [place] [address] 82997-649 6 07/26/2022 10:54:39 07/26/2022 11:35:35 Essential hypertension 64660762 I10 continue amlodipine 2.5 f/u 3 months Focal onse t impaired awareness epileptic seizure 252784140 G40.209 continue increased leviteriet am and video the next episode. [id number] Svetlana Woodruff MD , [facility] [address] [place] [address] 67664-420 6 08/16/2022 09:31:59 08/16/2022 12:53:18 Syncope 463311083 R55 ? migraine Headache 80642610 R51.9 continue the leviterice fernandes and topiramate . . f/u with Dr. Kulkarni to discuss ? sumatripta n that he recommende d. consider prednisone burst. Essential hypertension 29527243 I10 better on amlodipine , not a likely cause of HJA [id number] Svetlana Woodruff MD , [facility] [address] [place] [address] 25838-028 6 09/15/2022 11:10:18 09/15/2022 11:58:21 Pulmonary embolism 63908411 I26.99 08/2022. continue elliquis Metastasis from malignant tumor of prostate 131422175 C61 continue testing and treatment. Seizure 86726378 R56.9 with LOC. continue with increased dose of levitirace fernandes. Headache 36330325 R51.9 continue the leviterice fernandes and topiramate . . try riboflavin 200 mg /d. and try 1/2 of a caffeine pill in the morning. Constipation 09428924 K5 9.00 to start prune juice, if not successful use miralax. [id number] Svetlana Woodruff MD , [facility] [address] [place] [address] 27220-810 6 10/06/2022 16:08:32 10/10/2022 07:41:52 Right lower quadrant pain 754139134 R10.31 tenderness R lower trunk between the [...] f/u 1-2 wks. , sooner if worsening [id number] Svetlana Woodruff MD , [facility] [address] [place] [address] 6 10/25/2022 10:42:15 10/25/2022 11:26:01 Complicated migraine 124595415 G43.109 continue topiramate 100 mg. BID f/u w/ Dr. Kulkarni. Malignant neoplasm of prostate 806323374 C61 continue Rx Eligard, prolia, abirateron e Malignant neoplasm of urinary bladder 524934243 C67.9 continue seeing urologist and taking chem drug- continue seeing urology. Consider getting the colonoscop y when things are more stable. Metastasis from malignant tumor of prostate 664580712 C61 continue testing and treatment. Pulmonary embolism 87630 003 I26.99 08/2022. continue elliquis, now at lower dose. Pain in pelvis 85752065 R10.2 R side . After visit d/w Dr. Price who notes that the 07/06 bone scan did not show mets remaining. [id number] Svetlana Woodruff MD , [facility] [address] [place] [address] 6 11/22/2022 08:47:26 11/22/2022 09:20:08 Pulmonary embolism 54145345 I26.99 08/2022. 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 Metastasis from malignant tumor of prostate 879040775 C61 continue testing and treatment. Seizure 22894733 R56.9 with LOC. continue with increased dose of levitirace fernandes. Headache 52411188 R51.9 continue the leviterice fernandes and topiramate . . try riboflavin 200 mg /d. and try 1/2 of a caffeine pill in the morning. Malignant neoplasm of urinary bladder 828962583 C67.9 continue seeing urologist and taking chem drug- continue seeing urology. Consider getting the colonoscop y when things are more stable. Poor balance 508030290 R 27.8 working on it. [id number] Svetlana Woodruff MD , [facility] [address] [place] [address] 78863-062 6 12/15/2022 15:01:19 12/18/2022 07:14:45 Pain in pelvis 80435948 R10.2 check x-rays. and f/u after nuc scan. [id number] Svetlana Woodruff MD , [facility] [address] [place] [address] 76727-277 6 01/17/2023 09:24:49 01/17/2023 11:27:24 Weakness of left lower limb 8937342679 32650 M62.81 discussed- L leg weakness. suspect L2-L4 lesion. (has normal sensory. Diarrhea 04813290 R19.7 improving. Tear of skin 284847922 T 14.8XXA skin tear - will dress continue 1x/d wound changes. Loss of consciousness 41 2596206 R55 from vasovagal from the diarrhea most likely. No signs of concussion . [id number] Svetlana Woodruff MD , [facility] [address] [place] [address] 14104-108 6 02/21/2023 08:44:12 02/21/2023 09:40:05 Chronic kidney disease stage 3 522413516 N18.30 stable Essential hypertension 84898439 I10 better on amlodipine , not a likely cause of HJA Tear of skin 168582708 T 14.8XXA skin tear - will dress continue 1x/d wound changes. Malignant neoplasm of urinary bladder 714733516 C67.9 continue seeing urologist and taking chem drug- continue seeing urology. Consider getting the colonoscop y when things are more stable. 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 History of pulmonary embolus 844220533 Z86.711 continues on eliquis. [id number] Svetlana Woodruff MD , [facility] [address] [place] [address] 6 04/23/2023 15:00:49 04/23/2023 15:30:32 Benign essential hypertension 5942390 I10 at goal, continue current regimen Pulmonary embolism 69530 003 I26.99 d/c eliquis on 04/11 per heme/onc specialist s, follow up as planned Low back pain 774392893 M54.50 ER notes reviewedac clemente on chronicxra y 2009 showing DDD, xrays without acute pathology done in ERgiven hx would rec to avoid NSAIDs as best as possible, trial arthritis tylenol instead, could also consider topical options pending responsere c PT, he declines for now, is active at home at baselineca ll as needed Malignant neoplasm of urinary bladder 167136172 C67.9 recent bone scan without mets to the spinefollo w up with specialist as planned Senile purpura 18978526 D69.2 reassuranc e givenbeing off the eliquis should help as well [id number] Svetlana Woodruff MD , [facility] [address] [place] [address] 6 05/15/2023 13:25:12 05/15/2023 14:31:02 Superficial laceration of upper limb 106517601 S41.111A Pulmonary embolism 82430 003 I26.99 08/2022. Elliquis stopped 03/2023 for purpura and epistaxis. Malignant neoplasm of urinary bladder 598174746 C67.9 continue seeing urologist and taking chem drug- continue seeing urology. Consider getting the colonoscop y when things are more stable. even thought he PE may be more likely had to stop due to bleeding Adverse re action to drug 86416634 T50.905A suspect reaction to tripple Absx. use bacitracin instead [id number] Svetlana Woodruff MD , [facility] [address] [place] [address] 6 05/25/2023 09:31:00 05/25/2023 10:23:30 Acute low back pain 057375973 M54.50 Tenderness over the right posterior pelvis [...] chech x-ray Malignant neoplasm of urinary bladder 615372265 C67.9 continue seeing urologist. of note the Aberateron e was discontinu ed. on 05/18. Has pos bone scan to pelvis R acetabulum and R SI joint area . So do want to see any imaging they did at ED. [id number] Svetlana Woodruff MD , [facility] [address] [place] [address] 36741[address] 6 05/29/2023 16:58:01 05/29/2023 17:33:13 Low back pain 205459634 M54.50 R -sided pain over R PSIS. with negative x-ray pelvis. rec: bone scan for possible Cancer pain as there pas a spot on the R pelvis. increase med to hydromorph one as hydrocodon e not helping. [id number] Svetlana Woodruff MD , [facility] [address] [place] [address] 06777-365 6 06/05/2023 16:08:26 06/05/2023 16:37:45 Backache 822450381 M54.9 Pain is much better at this [...] lidocaine if needed. Active or passive immunization 533269382 Z23 Pt declines vaccines [id number] Svetlana Woodruff MD , [facility] [address] [place] [address] 37172-454 6 06/27/2023 14:03:35 06/28/2023 08:23:57 Active or passive immunization 572903189 Z23 Pt declines vaccines Macrocytosis 534618858 D 75.89 repeat B12 last done 2018. Abdominal pain 84280308 R10.[address] of abdo men abnormal 1975723397 3647198 R93.5 copy printed to send to Dr. Darrion walton prostate Laceration of left upper arm 7277365974 3348875 S41.112A superficia l . doing well. [id number] Svetlana Woodruff MD , [facility] [address] [place] [address] 07/20/2023 09:06:27 07/20/2023 18:45:04 Active or passive immunization 324756867 Z23 Pt declines vaccines Migraine with aura 82128 06 G43.109 consider excedrine migranine. increase amitriptyl ine to 50 mg. add amerge- naratripta n. can use 2x/wk. lAST imaging 2019. with increasing gilmore's over the last 2 yrs. would check imaging. [id number] Svetlana Woodruff MD , [facility] [address] [place] [address] 08/01/2023 16:02:39 08/01/2023 16:48:58 Migraine with aura 5191225 G43.109 Doing much better on amitriptyl ine and also prn naratripta n 2x/wk for breakthrou gh and using excedrine migraine if needed . can continue [id number] Svetlana Woodruff MD , [facility] [address] [place] [address] 6 09/04/2023 13:56:53 09/04/2023 14:58:38 Adult health examination 797193482 Z00.00 see Risk Assessment and Lifestyle Change Counseling section above Eat more meals less snacks. Depression screening 171 100241 Z13.31 depression screening tool administer ed Screening for alcohol abuse 773423559 Z13.39 Alcohol use screening tool administer ed Active or passive immunization 850122831 Z23 reminded pt about getting pneumo and shingles at local pharmacy Malignant neoplasm of urinary bladder 656586712 C67.9 Recurrent . Has pos bone scan to pelvis R acetabulum and R SI joint area . So do want to see any imaging they did at ED. Carcinoma of prostate 25 6637346 C61 with mets Low back pain 595464565 M54.50 with pain low back when touches upper back. check for compressio n fx Posterior rhinorrhea 758 37435 R09.82 trial ipratropri um Essential hypertension 61787383 I10 better on amlodipine , at goal. Small vess el cerebrovascular disease 725032733 I67.9 contniue atorvastat in. restart baby aspirin since CVA hx. can't be on aspirin and topamax. [id number] Maria Guadalupe DICKSON, [facility], OFFICE [address] [place] [address] 09/28/2023 15:22:51 10/01/2023 09:03:34 Edema of lower extremity 208378569 R60.0 Labs and ultrasound were ordered, but patient was transporte d to ER due to above. History of pulmonary embolus 341179501 Z86.711 - with hx of PE, and concern for DVT today as patient has active cancer and is no longer on anti-coagu lation due to side effects Malignant neoplasm of prostate 529550764 C61 - with hx of PE, and concern for DVT today as patient has active cancer and is no longer on anti-coagu lation due to side effects Malignant neoplasm of urinary bladder 648649372 C67.9 - with hx of PE, and concern for DVT today as patient has active cancer and is no longer on anti-coagu lation due to side effects Disorientated 89061774 R 41.0 After the visit, diandra zamora was called to the parking lot. Patient had reported to his and daughter that he felt dizzy, his left hand felt numb, and he felt chest pain. When we approached him, patient was conscious but not responding to questions. He was leaning forward in the walker seat and unable to keep himself in the seat. BP/HR/O2 sat stable. Pt had weak butter grader strength but also seemed unable to follow instructio ns. EMS was called and arrived on scene, and transporte d patient to the emergency room. [id number] Maria Guadalupe DCIKSON, [facility], OFFICE [address] [place] [address] 10/05/2023 14:25:34 10/09/2023 16:04:57 Transient cerebral ischemia 275980795 G45.9 - CT negative for stroke, but does have chronic cerebral ischemia- will start ASA 81mg once daily, and continue statin Essential hypertension 95915261 I10 - blood pressure at goal of 130/80, continue current medication s Seizure 54305056 R56.9 - episode possibly a seizure and following with Dr Kulkarni and on keppra- Dr Kulkarni is ordering an EEG for further eval- continue current medication s - no driving [id number] Svetlana Woodruff MD , [facility], OFFICE [address] [place] [address] 10/17/2023 09:24:22 10/18/2023 09:05:36 Onychomycosis of toenails 681684143 B35.1 send to podiatry Altered mental status 41 0069120 R41.82 on X-mas and the next day and when here in the office on 10/05/23. Suspect partial complex seizures. Neg w/u , seeng dr kulkarni. on R , not clear why, Talk to dr. Kulkarni. First try wrist splint at night. continue levetirace fernandes and the amitriptyl ine Numbness of hand 4091032 04 R20.0 [id number] Maria Guadalupe Freeman , [facility], OFFICE [address] [place] [address] 11/09/2023 16:23:40 11/11/2023 16:34:10 Active or passive immunization 046226701 Z23 pneumo, shingles: advised at pharmacy should pt decide to have Seizure 52829477 R56.9 - episode possibly a seizure and following with Dr Kulkarni and on keppra, no recent med adjustment s made- Dr Kulkarni is ordering an EEG for further eval- continue current medication s - no driving Transient cerebral ischemia 198770639 G45.9 - CT negative for stroke, but does have chronic cerebral ischemia- continue ASA 81mg once daily, and continue statin Advance care planning 71 0820722 Z71.89 - health care proxy reviewed today- MOLST reviewed - CPR ok but no intubation - scanned into chart [id number] Sherry Hughes MD Podiatry, [address] [address] 11/13/2023 15:10:04 11/13/2023 15:54:01 Chronic kidney disease stage 3 222292955 N18.30 Hypertrophy of nail 3065 4002 L60.2 [id number] Svetlana Woodruff MD , [facility], OFFICE [address] [place] [address] 12/26/2023 08:11:12 12/27/2023 12:36:08 Migraine 15957195 G43.909 continue , B2. naratiptan , amittrip, leviticace fernandes Seizure disorder 2904170 02 G40.909 stable more or less. continue the topiramate and leveiteric etam Recurrent falls 20748553 2 R29.6 reboot the PT Malignant neoplasm of urinary bladder 468918750 C67.9 Recurrent . Has pos bone scan to pelvis R acetabulum and R SI joint area . Malignant neoplasm of prostate 632889464 C61 continue Rx Eligard, prolia, abirateron e Pulmonary embolism 90214 003 I26.99 Is at risk for recurrence due to cancer, but too many falls no further anticoag [id number] Svetlana Woodruff MD , [facility], OFFICE [address] [place] [address] 01/09/2024 11:40:59 01/09/2024 12:46:19 Osteoarthritis of left knee joint 2762254065 [address] Leiva, use diclofenac Trouble ambulating due to pain Headache 62056289 R51.9 continue the leviterice fernandes and topiramate . . try riboflavin 200 mg /d. and try 1/2 of a caffeine pill in the morning. I do not think had a true reaction to the tyleonol. Impairment of balance 38 4980669 R26.89 keep working w/ PT. [id number] Sherry Hughes MD Podiatry, [address] [address] 01/15/2024 11:44:27 01/15/2024 12:11:59 Chronic kidney disease stage 3 739786677 N18.30 Hypertrophy of nail 3065 4002 L60.2 [id number] Svetlana Woodruff MD , [facility], OFFICE [address] [place] [address] 03/26/2024 10:44:27 03/26/2024 11:34:14 Urinary incontinence 399707496 R32 Continue Tolteridin e- helping. use pull up / depends daily. Eruption 126243340 R21 erythema of skin in interglute al cleft- use both nystatin and triamcinol one. will try to do in combo. Screening for malignant neoplasm of colon 181747944 Z12.11 Referral for a DIRECT booked colonoscop y. This patient is a healthy ASA Class 1 or 2 patient (only mild systemic disease), or a STABLE, well controlled insulin dependent diabetic. They do not have serious cardiac disease ie GA/angiopl asty within 1 year, symptomati c CHF; renal failure with CKD 4 or 5; take Coumadin, Plavix, Aggrenox, etc. Migraine 58391463 G43.90 9 continue , B2. naratiptan prn , amittrip, leviticace fernandes Osteoarthr itis of right knee joint 1793234356 56003 M17.11 use diclofenac Trouble ambulating due to pain [id number] Sherry Hughes MD Podiatry, [address] [address] 03/19/2024 09:05:39 03/19/2024 09:45:08 Chronic kidney disease stage 3 205176926 N18.30 Hypertrophy of nail 3065 4002 L60.2 [id number] Sherry Hughes MD Podiatry, [address] [address] 06/04/2024 09:30:51 06/04/2024 10:15:39 Chronic kidney disease stage 3 840347536 N18.30 Hypertrophy of nail 3065 4002 L60.2 [id number] Svetlana Woodruff MD , [facility], OFFICE [address] [place] [address] 07/01/2024 14:30:09 07/01/2024 15:48:46 Active or passive immunization 655835477 Z23 reminded pt about getting pneumo and shingles at local pharmacy Adjustment disorder with depressed mood 28925806 F43.21 rec: start ssr for anxiety and depression i and if paranoia no better would use antipsycho tic class like aripprazol e Headache 65328857 R51.9 continue the leviterice fernandes and topiramate . . continueri boflavin 200 mg /d. and try 1/2 of a caffeine pill in the morning. add mg glycinate. Migraine with aura 86626 06 G43.109 Doing much better on amitriptyl ine and also prn naratripta n 2x/wk for breakthrou gh and using excedrine migraine if needed . can continue Metastatic malignant neoplasm to prostate 06810897 C79.82 Lupron and a f/u w/ urology [id number] Svetlana Woodruff MD , [facility], OFFICE [address] [place] [address] 07/24/2024 11:30:23 07/24/2024 12:27:14 Active or passive immunization 974604653 Z23 PCV20/Ha gles - reminded Benign ess ential hypertension 7144206 I10 at goal on average, continue current regimen Malignant neoplasm of prostate 602823277 C61 known prostate and bladder cancerknow n mets to boneplan as abovef/u with oncology team as scheduled Metastatic malignant neoplasm to bone 91135129 C79.51 as above Pain of ri ght hip joint 6887187888 64093 M25.551 acute pain x1 week with known metastatic cancer historywil l obtain imaging as last was completed in February (whole body scan) and May (DEXA) to r/o additional bone metsdiscus sed PT if normal, he had success with improving LE strength with PT in the past Osteopenia 061913461 M85 .80 noted on recent DEXAencour aged calcium, vitamin D Malignant neoplasm of urinary bladder 814621446 C67.9 as above [id number] Sherry Hughes MD Podiatry, [facility] [address] [place] [address] 08/13/2024 09:56:11 08/13/2024 10:50:26 Chronic kidney disease stage 3 928855189 N18.30 Thickening of skin 65273 006 L85.1 [id number] Svetlana Woodruff MD , [facility], OFFICE [address] [place] [address] 08/15/2024 09:44:42 08/15/2024 12:09:20 Diverticulosis of sigmoid colon 668810330 K57.30 Pain of ri ght hip joint 6753716524 82337 M25.551 agree wtih PT. Migraine 82825406 G43.90 9 continue , B2. naratiptan prn , amittrip, leviticace fernandes Essential hypertension 80339427 I10 better on amlodipine , just about at goal. Anxiety 70851606 F41.9 still / some paranoia, but better. willing crease the fluoxetine to 20 . [id number] Cheo Goldberg MD , [facility], OFFICE [address] [place] [address] 08/21/2024 11:35:38 08/25/2024 12:46:53 Tear of skin 772770283 T14.8XXA supportive treament reviewed with pt- signs and symptoms of infection- reviewed and to f/u if any occur. discussed hydration and nutrition important to healing- and elevating arm at elbow to prevent swelling and aid healing Active or passive immunization 893783640 Z23 [id number] Svetlana Woodruff MD , [facility], OFFICE [address] [place] [address] 08/27/2024 13:24:48 08/27/2024 15:39:27 Avulsion of skin 804200691 T14.8XXD skin avulsion L forarm. use vaseline gasue or xerofrom and wrap. [id number] Svetlana Woodruff MD , [facility], OFFICE [address] [place] [address] 10/31/2024 14:21:48 10/31/2024 17:21:20 Infection of penis 195743922 N48.29 use the mupriocin 2-3x/d. call if still hurts in 1 week. keep 3 wk f/u. [id number] Svetlana Woodruff MD , [facility], OFFICE [address] [place] [address] 11/03/2024 14:17:56 11/03/2024 15:02:51 Injury of hand 907303155 S69.91XA check x-ray Rib pain 745078016 R07.8 1 Fracture o f metacarpal bone 252485975 S62.308A refer to ortho [id number] Sherry Hughes MD Podiatry, [address] [address] 11/12/2024 11:56:19 11/12/2024 13:01:08 Chronic kidney disease stage 3 487743180 N18.30 Thickening of skin 07710 006 L85.1 [id number] Svetlana Woodruff MD , [facility], OFFICE [address] [place] [address] 11/17/2024 09:44:14 11/17/2024 10:29:04 Essential hypertension 11970406 I10 on 2.5 amlodpine, BP going up increase to 5 mg. lisinopril caused hyperkalem ia, and we don't want to use diruetic due to the urinary issues, so next woudl add hydralazin e. Closed fra cture of metacarpal bone 227209712 S62.300D continue splint f/u w/ ortho. Headache 20870149 R51.9 continue the leviterice fernandes and topiramate . . continueri boflavin 200 mg /d.and mg glycinate. [id number] Svetlana Woodruff MD , [facility], OFFICE [address] [place] [address] 12/19/2024 13:04:37 12/19/2024 13:57:16 Localized eruption of skin 242976817 R21 use the TAC for a few days to a week Edema of l ower extremity 243007925 R60.0 from amlodipine . Essential hypertension 25230342 I10 on 2.5 amlodpine, BP going up increase to 5 mg. lisinopril caused hyperkalem ia, and we don't want to use diruetic due to the urinary issues, so next woudl add hydralazin e. Migraine 24251785 G43.90 9 continue B2. naratiptan prn , amittrip, leviticace fernandes Metastatic malignant neoplasm to bone 84434721 C79.51 from prostate Ca- Seeing Dr. Maier Seizure disorder 3345488 02 G40.909 stable more or less. continue the topiramate and leveiteric etam [id number] Sherry Hughes MD Podiatry, [address] [address] 01/14/2025 09:52:55 01/14/2025 10:21:13 Chronic kidney disease stage 3 494110105 N18.30 Thickening of skin 74413 006 L85.1 [id number] Sherry Hughes MD Podiatry, [address] [address] 03/18/2025 14:00:50 03/18/2025 14:38:01 Chronic kidney disease stage 3 209443950 N18.30 Hypertrophy of nail 3065 4002 L60.2 [id number] Svetlana Woodruff MD , [facility], OFFICE [address] [place] [address] 6 03/23/2025 15:48:43 03/23/2025 16:37:00 Localized eruption of skin 055270094 R21 use the TAC for a few days to a week Essential hypertension 05157423 I10 on 5 amlodpine, lisinopril caused hyperkalem ia, and we don't want to use diruetic due to the urinary issues, so next woudl add hydralazin e. BP at goal. Migraine 93439405 G43.90 9 continue B2. naratiptan prn , amittrip, leviticace fernandes Metastatic malignant neoplasm to bone 71473477 C79.51 from prostate Ca- Seeing Dr. Maier Seizure disorder 8827917 02 G40.909 stable more or less. continue the topiramate and leveiteric etam Tinea cruris 844127638 B 35.6 continue nystatin would do full 3 wk course. if not resolved or it returns soon, woul do ketoconazo le. Urinary incontinence 165 376630 R32 Continue Tolteridin e- helping. use pull up / depends daily. 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 781908437 I69.349 use walker to help w/ walking from this Health Concerns Section Related Observation LastModified by Organization Detai ls LastModified Time None Recorded Concern Status LastModified by Organization Details LastModified Time None Recorded Advance Directives Directive None Recorded Payers Insurance Date Sequence Insurance Name Policy Number Policy Andino Covered Member ID Andino Member ID Guarantor Name 03/27/2025 1 [facility] - DOS ON OR AFTER 2023 - ONE CARE (MEDICARE REPLACEMENT/A DVANTAGE - HMO) Kody Tinajero [id number] Kody Tinajero 07/24/2024 1 [facility] [employer] [facility] - TOGETHER (MEDICAID HMO) Kody Tinajero [id number] Kody Tinajero 07/24/2024 2 [place] [facility] Kody Tinajero [id number] Kody Tinajero 07/24/2024 1 [place] B[place] [facility] Kody Tinajero [id number] Kody Tinajero 07/24/2024 [facility] Kody Tinajero 07/24/2024 [employer] Kody Tinajero 03/17/2011 1 *SELF PAY* Yang Tinajero 07/24/2024 [employer] Kody Tinajero 07/24/2024 1 [facility] CARE - PLAN TYPE 3 (MEDICAID HMO) Kody Tinajero [id number] Kody Tinajero 12/28/2006 1 *SELF PAY* Yang Tinajero 07/24/2024 1 [facility] [id number] Kody Tinajero [id number] Kody Tinajero 07/24/2024 1 [facility] CARE- PLAN TYPE 2 (MEDICAID HMO) [id number] Kody Tinajero [id number] Kody Tinajero 07/24/2024 1 [employer] [place] [id number] Kody Tinajero [id number] Kody Romeroanyimilena 01/12/2016 PAYMENT PLAN Kody Romeroanyimilena 07/24/2024 1 [facility] - DOS PRIOR TO 2023 - DUAL ELIGIBLE (MEDICARE REPLACEMENT/A DVANTAGE - HMO) Kody Del Valle Lior [id number] Kody Del Valle Lior 07/24/2024 1 [place] [facility] Kody Del Valle Lior [id number] 1 Kody Del Valle Lior 07/24/2024 1 [facility] [employer] - TOGETHER (MEDICAID HMO) Kody Romeroeri [id number] Kody Tinajero Notes Date Note Type Note Provider Name and Address Organization Details Recorded Time 11/17/2024 text/html Here for MM HTN -PSA [...] B2 , and Magnesium Svetlana Woodruff MD [address] [place] [address], [phone], [facility] 11/17/2024 10:21:56 12/19/2024 text/html Here for MM [...] B2 , and Magnesium Svetlana Woodruff MD [address] [place], [phone], [facility] 12/19/2024 13:53:37 01/14/2025 text/html Patient with chronic kidney disease returns to the office for evaluation of thick, dry and cracking skin on his right foot. Patient states he has not been applying ammonium lactate cream, but has no complaints of open wound or drainage. Patient seen by Svetlana Woodruff MD on 08/27/2024. Ren Fabian DPM [address] [place], [phone], [facility] 01/14/2025 10:08:53 03/18/2025 text/html Patient with chronic kidney disease presents to the office for evaluation and at risk foot care. Patient complains of thickened toenail of his left big toe he cannot care for himself. Patient has no complaints of open wound or drainage. Patient seen by Svetlana Woodruff MD on 12/19/2024. Ren Fabian DPM [address] [place], [phone], [facility] 03/18/2025 14:35:33 03/23/2025 text/html Here for MM HTN Has bad rash groin. Nystatin x 1 wk not helping HTN- amlodipine increased to 5 mg , [...] metacarpals. Supplements on B2 , and Magnesium Had CVA not able to walk well due to this Svetlana Woodruff MD [address] [place] [address], [phone], [facility] 03/23/2025 16:34:30
== END 2025-04-30 10:34 | disposition home or self-care (01) ==
LOC: HO.HSM 09:54
PROVIDERS: PCP Family Medicine; Referring Provider Family Medicine; Visit Provider Registered Nurse
DX: G40.209 Localization-related (focal) (partial) symptomatic epilepsy and epileptic syndromes with complex partial seizures, not intractable, without status epilepticus (principal); G43.009 Migraine without aura, not intractable, without status migrainosus; F01.50 Vascular dementia, unspecified severity, without behavioral disturbance, psychotic disturbance, mood disturbance, and anxiety; R26.9 Unspecified abnormalities of gait and mobility
CPT/HCPCS: 99214

== ENCOUNTER → 2025-04-30 09:53 | Outpatient (BNVA) | payer OTHER, SELFPAY | PROVIDERS: PCP Family Medicine; Referring Provider Family Medicine; Visit Provider Registered Nurse | DX: G40.209 Localization-related (focal) (partial) symptomatic epilepsy and epileptic syndromes with complex partial seizures, not intractable, without status epilepticus (principal); G43.009 Migraine without aura, not intractable, without status migrainosus; F01.50 Vascular dementia, unspecified severity, without behavioral disturbance, psychotic disturbance, mood disturbance, and anxiety; R26.9 Unspecified abnormalities of gait and mobility | CPT/HCPCS: 99212 ==

== ENCOUNTER 2025-06-24 08:10 | Outpatient (REF) | payer OTHER, SELFPAY ==
--- OUTSIDE RECORDS SUMMARY | 2025-06-24 09:13 | XMS_ITS | Encounter Summary ---
Author Organization [facility] Address [address] [place] [address] Phone Care Team Providers Care Cardiology Coordinator Name Role Phone Eric Dinh MD Primary Care Provider [phone] Encounter Details Date Type Department Care Team (Late st Contact Info) Description 11/24/2023 Procedure Pass [facility], Ct Scan - [address] [address] Social History Tobacco Use Types Packs/Day Years Used Date Smoking Tobacco: Never Smokeless Tobacco: Never Alcohol Use Standard Drinks/Week Comments Not Currently 0 (1 standard drink = 0.6 oz pur e alcohol) Education Answer Date Recorded Are you interested in more education? Not on felipe e 02/09/2023 Are you concerned about learning? Not on file 02/09/2023 No 02/09/2023 No 02/09/2023 Digital Access Answer Date Recorded No 03/10/2023 No 03/10/2023 Reliable internet access at home? Not on file 03/10/2023 Device with a working camera? Not on file Sex and Gender Information Value Date Recorded Sex Assigned at Male 12/29/2018 6:34 PM EDT Legal Sex Male 9:59 PM EDT Gender Identity Male 12/29/2018 6:34 PM EDT Sexual Orientation Straight 12/29/2018 6: 34 PM EDT documented as of this encounter Functional Status * Calculated C-SSRS Risk Score (Lifetime/Recent) Answer Date of Assessment Author No Risk Indicated 11/24/2023 12:38 AM Priti Tinajero RN * [place] Suicide Severity Rating Scale (Screener/Recent Self-Report) Question Answer Date of Assessment Author 1. Wish to be (Past 1 Month) No 024 12:38 AM Priti Chambers RN 2. Non-Specific Active Suici duane Thoughts (Past 1 Month) No 11/24/2023 12:38 AM Maryam Chambers RN 6. Suicidal Behavior (Lifetime) No 12:38 AM Priti Chambers RN documented as of this encounter Plan of Treatment Not on file documented as of this encounter Visit Diagnoses Not on filedocumented in this encounter Care Teams Cardiology Coordinator Relationship Specialty Start Date End Date Eric Dinh MD [address] [place] [phone] [email or web address] PCP - General Family Medicine 12/29/18 documented as of this encounter Additional Source Comments The information contained in this document represents components of the legal health record. It is not the complete legal health record.[facility]
--- OUTSIDE RECORDS SUMMARY | 2025-06-24 09:13 | XMS_ITS | Encounter Summary ---
Author Organization [employer] Address [address] [place] [address] Care Team Providers Care Project Drilling Engineer Name Role Phone Unavailable Primary Care Provider Unavailabl e Reason for Visit * Reason Onset Date Comments medication 08/29/2024 Encounter Details Date Type Department Care Team ([facility] st Contact Info) Description 08/29/2024 Telephone [facility] [address], [place] [phone] Fredis Doe DDS [address], [place] [phone] medication Social History Tobacco Use Types Packs/Day [...] pharmacy from appt on 08/29. [facility]ending to [facility] * Telephone Encounter - Sheridan Barbour - 08/29/2024 11:36 AM EST Message for Dr. Doe Patient called in reporting that medication antibiotic was not sent to pharmacy for patient yesterday. Patient would like to be able to hop picker today prior to weekend starting documented in this encounter Plan of Treatment Not on file documented as of this encounter Visit Diagnoses Not on filedocumented in this encounter
--- OUTSIDE RECORDS SUMMARY | 2025-06-24 09:13 | XMS_ITS | Encounter Summary ---
Author Organization [facility] Address [address] [place] [address] Phone Care Team Providers Care Chef Name Role Phone Eric Dinh MD Primary Care Provider [phone]- [phone] Encounter Details Date Type Department Care Team (Late st Contact Info) Description 11/05/2023 Procedure Pass [facility], Ct Scan - [address] [address] Social History Tobacco Use Types Packs/Day Years [...] Date of Assessment Author No Risk Indicated 11/05/2023 9:47 AM Ernestine Almeida RN * [place] Suicide Severity Rating Scale (Screener/Recent Self-Report) Question Answer Date of Assessment Author 1. Wish to be (Past 1 Month) No 024 9:47 AM Ernestine Almeida RN 2. Non-Specific Active Suici duane Thoughts (Past 1 Month) No 11/05/2023 9:47 AM Ernestine Almeida RN 6. Suicidal Behavior (Lifetime) No 9:47 AM Ernestine Almeida RN documented as of this encounter Plan of Treatment Not on file documented as of this encounter Visit Diagnoses Not on filedocumented in this encounter Care Teams Chef Relationship Specialty Start Date End Date Eric Dinh MD [address] [place] [phone] [email or web address] PCP - General Family Medicine 12/29/18 documented as of this encounter Additional Source Comments The information contained in this document represents components of the legal health record. It is not the complete legal health record.[facility]
--- OUTSIDE RECORDS SUMMARY | 2025-06-24 09:13 | XMS_ITS | Encounter Summary ---
Author Organization [facility] Address [address] [place] [address] Phone Care Team Providers Care Boiler Water Tester Name Role Phone Eric Dinh MD Primary Care Provider +1- [phone] Encounter Details Date Type Department Care Team (Late st Contact Info) Description 11/24/2023 Procedure Pass [facility], Ct Scan - [address] [address] Social History Tobacco Use Types Packs/Day Years [...] 11/24/2023 12:38 AM Priti Tinajero RN * [place] Suicide Severity Rating Scale (Screener/Recent Self-Report) Question [...] on filedocumented in this encounter Care Teams Boiler Water Tester Relationship Specialty Start Date End Date Eric Dinh MD [address] [place] [phone] [email or web address] PCP - General Family Medicine 12/29/18 documented as of this encounter Additional Source Comments The information contained in this document represents components of the legal health record. It is not the complete legal health record.[facility]
--- OUTSIDE RECORDS SUMMARY | 2025-06-24 09:13 | XMS_ITS | Encounter Summary ---
Author Organization [facility] Address [address] [facility] [address] [place] [address] Phone Care Team Providers Care Content Director Name Role Phone Eric Dinh MD Primary Care Provider +1- [phone] Encounter Details Date Type Department Care Team (Late st Contact Info) Description 08/01/2024 Procedure Pass [facility] Admitting Dept Virtual Department [address] [place] [address] Social History Tobacco Use Types Packs/Day Years Used Date Smoking Tobacco: Never Smokeless Tobacco: Never Alcohol Use Standard Drinks/Week Comments Not Currently 0 (1 standard drink = 0.6 oz pur e alcohol) Home Health Assessment: Transportation Answer Date Recorded Lack of Transportation (Medical) No 01/25/2024 Lack of Transportation (Non-Medical) No 01/25/2024 Patient Unable or Declines to Respond No 01/25/2024 Education Answer Date Recorded Are you interested in more education? Not on felipe e 02/09/2023 Are you concerned about learning? Not on file 02/09/2023 No 02/09/2023 No 02/09/2023 Digital Access Answer Date Recorded No 03/10/2023 No 03/10/2023 Reliable internet access at home? Not on file 03/10/2023 Device with a working camera? Not on file Intimate Partner Violence Answer Date R ecorded Are you denied basic needs s uch as food, clothing, or medical care? No 08/01/2024 In the past 12 months have y ou been in a relationship with a person who hurts, threatens, or tries to control you? No 08/01/2024 Are you denied basic needs s uch as food, clothing, or medical care? No 08/01/2024 In the past 12 months have y ou been in a relationship with a person who hurts, threatens, or tries to control you? No 08/01/2024 Sex and Gender Information Value Date Recorded Sex Assigned at Male 12/29/2018 6:34 PM EDT Legal Sex Male 9:59 PM EDT Gender Identity Male 12/29/2018 6:34 PM EDT Sexual Orientation Straight 12/29/2018 6: 34 PM EDT documented as of this encounter Plan of Treatment Not on file documented as of this encounter Visit Diagnoses Not on filedocumented in this encounter Care Teams Content Director Relationship Specialty Start Date End Date Eric Dinh MD [address] [place] [phone] [email or web address] PCP - General Family Medicine 12/29/18 documented as of this encounter Additional Source Comments The information contained in this document represents components of the legal health record. It is not the complete legal health record.[facility]
--- OUTSIDE RECORDS SUMMARY | 2025-06-24 09:14 | XMS_ITS | Encounter Summary ---
Author Organization [facility] Address [address] [place] [address] [place] [address] Phone Care Team Providers Care Licensing Director Name Role Phone Eric Dinh MD Primary Care Provider +1- [phone] Encounter Details Date Type Department Care Team (Late st Contact Info) Description 10/08/2023 Procedure Pass [facility], Ct Scan - [address] [address] Social History Tobacco Use Types Packs/Day Years [...] on filedocumented in this encounter Care Teams Licensing Director Relationship Specialty Start Date End Date Eric Dinh MD [address] [place] [phone] [email or web address] PCP - General Family Medicine 12/29/18 documented as of this encounter Additional Source Comments The information contained in this document represents components of the legal health record. It is not the complete legal health record.[facility]
--- OUTSIDE RECORDS SUMMARY | 2025-06-24 09:14 | XMS_ITS | Clinical Summary ---
Author Organization [employer] Address [address] [facility] 7[address] [place] [address] Care Team Providers Care Kiln Firer Name Role Phone Unavailable Primary Care Provider [...] Periodontal disease 08/28/2024 Odontalgia 08/28/2024 Fractured dental nondenominational with loss of materi al 08/28/2024 Social [...] 1-dose series) 2012 COVID-19 Vaccine ( season) 2025 06/17/2024, 11/27/2023, 10/09/2021, Additional history exists Influenza Vaccine (#1) 2025 , 07/20/2023, 07/05/2022, Additional history exists Tobacco Screening 09/24/2025 09/24/2024 DTaP/Tdap/Td Vaccines (4 - Td or Tdap) 08/21/2034 08/21/2024, 01/06/2023, 07/29/2013, Additional history exists Pneumococcal Vaccine: 50+ Years Completed 06/21/2020, 11/11/2018 HIB Vaccines Aged Out No longer eligi [...] patient's age to complete this topic Insurance [facility] [address] [place] [id number]
--- OUTSIDE RECORDS SUMMARY | 2025-06-24 09:14 | XMS_ITS | Encounter Summary ---
Author Organization [facility] Address [address] [place] [address] Phone Care Team Providers Care Dining Room Server Name Role Phone Eric Dinh MD Primary Care Provider [phone]- [phone] Encounter Details Date Type Department Care Team (Late st Contact Info) Description 06/23/2023 Procedure Pass [facility], Ct Scan - [address] [address] Social History Tobacco Use Types Packs/Day Years [...] Date of Assessment Author No Risk Indicated 06/25/2023 11:42 AM EDT Pooja Aceves RN * [place] Suicide Severity Rating Scale (Screener/Recent Self-Report) Question Answer Date of Assessment Author 1. Wish to be (Past 1 Month) No 023 11:42 AM EDT Pooja Khan RN 2. Non-Specific Active Suici duane Thoughts (Past 1 Month) No 06/25/2023 11:42 AM EDT Konstantin Khan RN 6. Suicidal Behavior (Lifetime) No 11:42 AM EDT Pooja Khan RN documented as of this encounter Plan of Treatment Not on file documented as of this encounter Visit Diagnoses Not on filedocumented in this encounter Additional Health Concerns Infection Onset Date Last Indicated Resolved Time CoV-Risk 06/29/2023 06/29/2023 07/10/2023 1:22 AM EDT documented as of this encounter Care Teams Dining Room Server Relationship Specialty Start Date End Date Eric Dinh MD [address] [place] [phone] [email or web address] PCP - General Family Medicine 12/29/18 documented as of this encounter Additional Source Comments The information contained in this document represents components of the legal health record. It is not the complete legal health record.[facility]
--- OUTSIDE RECORDS SUMMARY | 2025-06-24 09:14 | XMS_ITS | Encounter Summary ---
Author Organization [facility] Address [address] [place] [address] [place] [address] Phone Care Team Providers Care Supervisor Powdered Sugar Name Role Phone Eric Dinh MD Primary Care Provider +1- [phone] Encounter Details Date Type Department Care Team (Late st Contact Info) Description 08/04/2020 Procedure Pass [facility] [address] [place] [address] Social History Tobacco Use Types Packs/Day Years [...] documented as of this encounter Care Teams Supervisor Powdered Sugar Relationship Specialty Start Date End Date Eric Dinh MD [address] [place] [phone] [email or web address] PCP - General Family Medicine 3/17/19 documented as of this encounter Additional Source Comments The information contained in this document represents components of the legal health record. It is not the complete legal health record.[facility]
--- OUTSIDE RECORDS SUMMARY | 2025-06-24 09:14 | XMS_ITS | Encounter Summary ---
Author Organization [facility] Address [address] [place] [address] [place] [address] Phone Care Team Providers Care Pretzel Twisting Machine Operator Name Role Phone Eric Dinh MD Primary Care Provider +1- [phone] Encounter Details Date Type Department Care Team (Late st Contact Info) Description 03/03/2020 Procedure Pass [facility] Admitting Dept Virtual Department [address] [place] [address] Social History Tobacco Use Types Packs/Day Years [...] documented as of this encounter Care Teams Pretzel Twisting Machine Operator Relationship Specialty Start Date End Date Eric Dinh MD [address] [place] [phone] [email or web address] PCP - General Family Medicine 12/29/18 documented as of this encounter Additional Source Comments The information contained in this document represents components of the legal health record. It is not the complete legal health record.[facility]
--- OUTSIDE RECORDS SUMMARY | 2025-06-24 09:14 | XMS_ITS | Encounter Summary ---
Author Organization [facility] Address [address] [place] [address] [place] [address] Phone Care Team Providers Care Aircraft Engine Mechanic Supervisor Name Role Phone Eric iDnh MD Primary Care Provider +1- [phone] Encounter Details Date Type Department Care Team (Late st Contact Info) Description 04/10/[address] [facility], Ct Scan - [address] [place] [address] [address] Social History Tobacco Use Types Packs/Day Years [...] documented as of this encounter Care Teams Aircraft Engine Mechanic Supervisor Relationship Specialty Start Date End Date Eric Dinh MD [address] [place] [phone] [email or web address] PCP - General Family Medicine 12/29/18 documented as of this encounter Additional Source Comments The information contained in this document represents components of the legal health record. It is not the complete legal health record.[facility]
--- OUTSIDE RECORDS SUMMARY | 2025-06-24 09:14 | XMS_ITS | Encounter Summary ---
Author Organization [facility] Address [address] [place] [address] [place] [address] Phone Care Team Providers Care Team Sports Sales Associate Name Role Phone Eric Dinh MD Primary Care Provider +1- [phone] Encounter Details Date Type Department Care Team (Late st Contact Info) Description 10/08/2023 Procedure Pass [facility], Ct Scan - [address] [address] Social History Tobacco Use Types Packs/Day Years [...] on filedocumented in this encounter Care Teams Team Sports Sales Associate Relationship Specialty Start Date End Date Eric Dinh MD [address] [place] [phone] [email or web address] PCP - General Family Medicine 12/29/18 documented as of this encounter Additional Source Comments The information contained in this document represents components of the legal health record. It is not the complete legal health record.[facility]
--- OUTSIDE RECORDS SUMMARY | 2025-06-24 09:14 | XMS_ITS | Encounter Summary ---
Author Organization [facility] Address [address] [place] [address] [place] [address] Phone Care Team Providers Care Gem Expert Name Role Phone Eric Dinh MD Primary Care Provider +1- [phone] Encounter Details Date Type Department Care Team (Late st Contact Info) Description 10/08/2023 Procedure Pass [facility], Ct Scan - [address] [address] Social History Tobacco Use Types Packs/Day Years [...] on filedocumented in this encounter Care Teams Gem Expert Relationship Specialty Start Date End Date Eric Dinh MD [address] [place] [phone] [email or web address] PCP - General Family Medicine 12/29/18 documented as of this encounter Additional Source Comments The information contained in this document represents components of the legal health record. It is not the complete legal health record.[facility]
--- OUTSIDE RECORDS SUMMARY | 2025-06-24 09:14 | XMS_ITS | Encounter Summary ---
Author Organization [facility] Address [address] [place] [address] [place] [address] Phone Care Team Providers Care Archery Instructor Name Role Phone Eric Dinh MD Primary Care Provider +1- [phone] Encounter Details Date Type Department Care Team (Late st Contact Info) Description 07/16/2019 Procedure Pass [facility] Admitting Dept Virtual Department [address] [place] [address] Social History Tobacco Use Types Packs/Day Years [...] documented as of this encounter Care Teams Archery Instructor Relationship Specialty Start Date End Date Eric Dinh MD [address] [place] [phone] [email or web address] PCP - General Family Medicine 12/29/18 documented as of this encounter Additional Source Comments The information contained in this document represents components of the legal health record. It is not the complete legal health record.[facility]
--- OUTSIDE RECORDS SUMMARY | 2025-06-24 09:14 | XMS_ITS | Encounter Summary ---
Author Organization [facility] Address [address] [facility] [address] [place] [address] Phone Care Team Providers Care Golf Ball Marker Name Role Phone Eric Dinh MD Primary Care Provider +1- [phone] Encounter Details Date Type Department Care Team (Late st Contact Info) Description 08/18/2019 Transcribe Orders Virtual Department [address] [place] [address] Eric Dinh MD [address] [place] [phone] [email or web address] Dyspnea on exertion (Primary Dx) Social History Tobacco Use Types Packs/Day Years [...] on file documented as of this encounter Results * Pulmonary Function Test Reason for Exam: Dyspnea/Shortness of Breath (dyspnea on exertion, one month shortness of breath. he is on casodex which does have pulmonary fibroids listed as complication );Type of PFT Test: Spirometry with bronchodilato... (10/03/2019 11:54 AM EST) FEV1 FVC FEV1/FVC TLC DLCO Anatomical Region Laterality Modality Other Impressions 10/03/2019 11:54 AM EST PULMONARY FUNCTION STUDIES Full pulmonary function studies were performed on this 69 y.o. year-old male for evaluation of shortness of breath. Review of the medical record reveals that the patient is a never smoker. Prior pulmonary function studies are not available for comparison. SPIROMETRY: The FEV1 is normal at 3.25 L or 100 % predicted. The FVC is normal at 4.05 L or 84 % predicted. The FEV1/FVC ratio is normal at 80 %. After the administration of a bronchodilator agent, there is no significant change. FLOW-VOLUME LOOPS: Evaluation of the flow-volume loops reveals narrowing of the morphology suggestive of restrictive pattern. No change following bronchodilator. LUNG VOLUME MEASUREMENTS BY PLETHYSMOGRAPHY: The total lung capacity is mildly impaired at 4.84 L or 68 % predicted. The functional residual capacity is moderate to severely impaired at 1.67 L or 45 % predicted. Residual volume severely reduced at 0.79 L or only 30% predicted, giving a reduced RV/TLC ratio consistent with restriction. Of note, the ERV is markedly impaired, likely representing the imprint of body habitus. DIFFUSION CAPACITY: The diffusion capacity is normal at 24.6 mL/mmHg sec or 94 % predicted. COMPARISON TO PRIOR STUDIES: None available. Resting oxygen saturation is 99 % on room air. IMPRESSION: Abnormal pulmonary function studies with normal spirometry without bronchial reactivity and normal diffusion capacity. There is evidence of mild reduction in total lung capacity but severe reduction in the residual volume compartment. Etiology of the lung volume abnormality is unclear. Given other preserved measurements, extra parenchymal restriction would be most likely. Clinical radiographic correlation advised. If no abnormality seen on chest imaging, consider repeat testing with alternative lung volume measurement methodology. us Eric Dinh MD PFT ORDERABLES Final Resul t documented in this encounter Visit Diagnoses Diagnosis Dyspnea on exertion- Primary Other dyspnea and respiratory abnormality Dyspnea on exertion Other dyspnea and respiratory abnormality documented in this encounter Additional Health Concerns Infection Onset Date Last Indicated Resolved Time CoV-Risk 06/29/2023 06/29/2023 07/10/2023 1:22 AM EDT documented as of this encounter Care Teams Golf Ball Marker Relationship Specialty Start Date End Date Eric Dinh MD [address] [place] [phone] [email or web address] PCP - General Family Medicine 12/29/18 documented as of this encounter Additional Source Comments The information contained in this document represents components of the legal health record. It is not the complete legal health record.[facility]
--- OUTSIDE RECORDS SUMMARY | 2025-06-24 09:14 | XMS_ITS | Encounter Summary ---
Author Organization [facility] Address [address] [place] [address] [place] [address] Phone Care Team Providers Care Furnace Fitter Name Role Phone Eric Dinh MD Primary Care Provider +1- [phone] Encounter Details Date Type Department Care Team (Late st Contact Info) Description 09/28/2023 Procedure Pass [facility], Ct Scan - [address] [place] [address] [address] Social History Tobacco Use Types Packs/Day Years [...] on filedocumented in this encounter Care Teams Furnace Fitter Relationship Specialty Start Date End Date Eric Dinh MD [address] [place] [phone] [email or web address] PCP - General Family Medicine 12/29/18 documented as of this encounter Additional Source Comments The information contained in this document represents components of the legal health record. It is not the complete legal health record.[facility]
--- OUTSIDE RECORDS SUMMARY | 2025-06-24 09:14 | XMS_ITS | Clinical Summary ---
Author Organization [facility] Address [address] [facility] [address] [place] [phone] Phone Care Team Providers Care Electronic Publishing Specialist Name Role Phone Svetlana Woodruff MD Primary Care Provider +1- [phone] Allergies Active Allergy Reactions Criticality Noted Date Comments Oxycodone 05/14/2021 Primidone Diarrhea,Headaches,Dizziness 019 Medications atorvastatin (LIPITOR) 40 MG tablet Take 40 mg by mouth nightly at bedtime. Active magnesium oxide 250 mg (150 mg elemental) Tab Take 400 mg by mouth daily. Active tamsulosin (FLOMAX) 0.4 mg Cap Take 0.4 mg by mouth 2 (two) times a day. Active acetaminophen (TYLENOL) 500 MG tablet Take 2 tablets (1,000 mg total) by mouth every 8 (eight) hours as needed for pain (specific location in comments) (headache). 20 tablet 1 Active loperamide (IMODIUM) 2 mg capsule Take 1 capsule (2 mg total) by mouth 4 (four) times a day as needed for diarrhea. 20 capsule 3 Active amitriptyline (ELAVIL) 50 MG tablet Take 50 mg by mouth nightly at bedtime. 4 Active amLODIPine (NORVASC) 2.5 MG tablet Take 2.5 mg by mouth every morning. 3 Active levETIRAcetam (KEPPRA) 500 MG tablet Take 2 tablets by mouth 2 (two) times a day. 3 Active riboflavin, vitamin B2, (VITAMIN B-2) 100 mg Tab Take 200 mg by mouth daily. 4 Active diclofenac sodium (VOLTAREN) 1 % Gel Apply 2 g topically 4 (four) times a day. pply 2 grams of the affected area(s) by topical route 4 times per day 4 Active aspirin 81 mg chewable tablet Take 81 mg by mouth daily. 4 Active acetaminophen (TYLENOL) 650 MG CR tablet Take 1,300 mg by mouth every 8 (eight) hours as needed for pain (specific location in comments). knees 4 Active cholecalciferol (VITAMIN D3) 2,000 unit capsule Take 2,000 Units by mouth. 4 Active FLUoxetine (PROZAC) 10 MG capsule Take 1 capsule by mouth every morning. 4 Active ipratropium (ATROVENT) 21 mcg (0.03 %) nasal spray INSTILL 2 SPRAYS IN EACH NOSTRIL TWICE A DAY 4 Active naratriptan (AMERGE) 1 MG Tab TAKE 1 TABLET BY MOUTH TWICE WEEKLY 4 Active tolterodine (DETROL LA) 2 MG 24 hr capsule Take 1 capsule by mouth nightly at bedtime. 4 Active topiramate (TOPAMAX) 100 MG tablet Take 100 mg by mouth 2 (two) times a day. 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 Malignant tumor of prostate 10/07/2019 Hypertension 10/07/2019 Nocturia 10/07/2019 Tremor, essential 10/07/2019 Transient cerebral ischemia 10/07/2019 Hypercholesteremia 10/07/2019 Family History Medical History Relation Comments Leukemia Brother Malignant neoplastic disease Father Diabetes Mother Stroke Mother 40s Relation Status Comments Brother Father Mother Social History Tobacco Use Types Packs/Day Years [...] Orientation Straight 12/29/2018 6: 34 PM EDT Last Filed Vital Signs Vital Sign Reading Time Taken Comments Blood Pressure 140/96 08/01/2024 3:12 PM EDT Pulse 77 08/01/2024 3:12 PM EDT Temperature 36 C (96.8 F) 08/01/2024 2:56 PM EDT Respiratory Rate 18 08/01/2024 3:12 PM EDT Oxygen Saturation 96% 08/01/2024 3:12 PM EDT Inhaled Oxygen Concentration - - Weight 102.1 kg (225 lb) 07/31/2024 8:39 AM EDT Height 182.9 cm (6') 07/31/2024 8:39 AM EDT Body Mass Index 30.52 07/31/2024 8:39 AM EDT Plan of Treatment Health Maintenance Due Date Last Done Comments LIPID PANEL 1950 DEPRESSION SCREENING 1964 HEPATITIS C SCREENING 1970 ZOSTER VACCINES (1 of 2) 1971 02/08/2017 COLOGUARD 1997 FIT TEST 1997 FOBT 1997 SIGMOIDOSCOPY 1997 VIRTUAL COLONOSCOPY 1997 RSV VACCINE (1 - Risk 60-74 years 1-dose series) 2012 PNEUMOCOCCAL VACCINES (50+ years) (2 of 2 - PPSV23) 01/06/2019 11/11/2018 BLOOD PRESSURE 07/26/2024 01/25/2024 INFLUENZA VACCINE (#1) 2025 , 07/20/2023, 07/05/2022, Additional history exists COVID-19 VACCINE ( season) 2025 06/17/2024, 11/27/2023, 10/09/2021, Additional history exists COLONOSCOPY 08/01/2034 08/01/2024 COLORECTAL CANCER SCREENING 08/01/2034 Adult Td,Tdap Booster 08/21/2034 08/21/2024 , 01/06/2023, 07/29/2013, Additional history exists SMOKING STATUS SCREENING (Once After 26 Yrs) Completed 07/31/2024 HEPATITIS A VACCINES Aged Out No long er eligible based on patient's age to complete this topic HIB VACCINES Aged Out No longer eligi ble based on patient's age to complete this topic MENINGOCOCCAL VACCINES (ACWY) Aged Out No longer eligible based on patient's age to complete this topic MENINGOCOCCAL VACCINES (B) Aged Out N o longer eligible based on patient's age to complete this topic Medical Devices Not on file Procedures Procedure Name Priority Date/Time Associated Diagnosis Comments ENDOSCOPY, COLON 08/01/2024 2:24 PM EDT from Last 3 Months or Most Recently Relevant to Health Maintenance Results * ENDOSCOPY, COLON (08/01/2024 2:24 PM EDT) Narrative Transcriptions Daina Tenorio MD - 08/01/2024 2:24 PM EDT [facility] Patient Name: Kody Tinajero Attending MD:: DAINA TENORIO MD, Procedure Date: 08/01/2024 2:24 PM Date of : 1950 Age: 73 Admit Type: Outpatient Gender: Male Room: [facility] 05 Referring MD: SVETLANA WOODRUFF MD Exam Type: Colonoscopy Indications: Screening for colorectal malignant neoplasm, Thisis the patient's first colonoscopy Medications: Propofol per Anesthesia Procedure: Informed consent was obtained from the patientafter discussion of the indications, limitations, alternatives, benefits, and risks of the procedure. Risks specifically discussed include but are not limited to medication reactions, missed lesions, bleeding, perforation, or the need for emergent surgery. Throughout the procedure, the patient's blood pressure, pulse, end-tidal CO2, and oxygensaturations were monitored continuously. The Olympus adult variable colonoscope [id number] #7 was introduced through the anus and advanced to the terminal ileum, with identification of theappendiceal orifice and IC valve. The terminal ileum, ileocecal valve, appendiceal orifice, and rectum were photographed. The colonoscopy was performed without difficulty. The patient tolerated the procedurewell. The quality of the bowel preparation was adequate.The bowel preparation used was GoLYTELY via split dose instruction. Complications: No immediate complications. Estimated blood loss:None. Findings: The perianal and digital rectal examinations were normal. Pertinent negatives include normal prostate (size, shape, and consistency). Internal hemorrhoids were found duringretroflexion. The hemorrhoids were small. A few small-mouthed diverticula were found in the sigmoid colon. The exam was otherwise without abnormality. The terminal ileum appeared normal. Retroflexion in the right colon was performed. Impression: - Internal hemorrhoids. - Diverticulosis in the sigmoid colon. - The examination was otherwise normal. - The examined portion of the ileum was normal. - No specimens collected. Recommendation: - Repeat colonoscopy in 10 years for screening purposes. DAINA TENORIO MD 08/01/2024 2:54:49 PM This report has been signed electronically. Number of Addenda: 0 Note Initiated On: 08/01/2024 2:24 PM Procedure Code(s): --- Professional --- 86187, Colonoscopy, flexible; diagnostic, including collection of specimen(s) by brushing or washing, when performed (separateprocedure) --- Technical --- 29563, Colonoscopy, flexible; diagnostic, including collection of specimen(s) by brushing or washing, when performed (separateprocedure) Diagnosis Code(s): --- Professional --- Z12.11, Encounter for screening for malignantneoplasm of colon K64.8, Other hemorrhoids K57.30, Diverticulosis of large intestine without perforation or abscess without bleeding --- Technical --- Z12.11, Encounter for screening for malignantneoplasm of colon K64.8, Other hemorrhoids K57.30, Diverticulosis of large intestine without perforation or abscess without bleeding CPT copyright 2021 [employer]. All rights reserved. The codes documented in this report are preliminary and upon rehab therapy manager reviewmay be revised to meet current compliance requirements. Procedure Date: 08/01/2024 2:24:[address] [place] [address] Svetlana Woodruff MD GI PROCEDURE ORDERABLES Fin al Result from Last 3 Months or Most Recently Relevant to Health Maintenance Insurance [facility] MEDICARE REPLACEMENT O MEDICARE REPLACEMENT MEDICARE REPLACEMENT MEDICARE REPLACEMENT MEDICARE REPLACEMENT MEDICARE REPLACEMENT MEDICARE REPLACEMENT O MEDICARE REPLACEMENT MEDICARE REPLACEMENT Care Teams Electronic Publishing Specialist Relationship Specialty Start Date End Date Svetlana Woodruff MD [address] [place] [phone] [email or web address] PCP - General Family Medicine 12/29/18 Additional Source Comments The information contained in this document represents components of the legal health record. It is not the complete legal health record.[facility]
--- OUTSIDE RECORDS SUMMARY | 2025-06-24 09:14 | XMS_ITS | Encounter Summary ---
Author Organization [facility] Address [address] [place] [address] [place] [address] Phone Care Team Providers Care Automotive Mechanic Name Role Phone Eric Dinh MD Primary Care Provider [phone]- [phone] Encounter Details Date Type Department Care Team (Late st Contact Info) Description 03/19/2019 Procedure Pass [facility] Endoscopy Admitting Dept Virtual Department [address] [place] [address] Social History Tobacco Use Types Packs/Day Years [...] documented as of this encounter Care Teams Automotive Mechanic Relationship Specialty Start Date End Date Eric Dinh MD [address] [place] [phone] [email or web address] PCP - General Family Medicine 12/29/18 documented as of this encounter Additional Source Comments The information contained in this document represents components of the legal health record. It is not the complete legal health record.[facility]
--- OUTSIDE RECORDS SUMMARY | 2025-06-24 09:14 | XMS_ITS | Encounter Summary ---
Author Organization [facility] Address [address] [place] [address] [place] [address] Phone Care Team Providers Care Division Director Name Role Phone Eric Dinh MD Primary Care Provider [phone]- [phone] Reason for Referral * MRI/CAT Scan - Closed Specialty Diagnoses / Procedures Referred By Contac t Referred To Contact Radiology Diagnoses Migraine without status migrainosus, not intractable, unspecified migraine type Blurred vision Procedures MRI Brain CHG MRI BRAIN COMBO Eric Dinh MD [address] [place] [address] Phone: tel: fax: [email or web address] Referral ID Status Reason Start Date Expiration Date Visits Re quested Visits Authorized [id number] Closed 07/22/2023 11/19/2023 1 1 Encounter Details Date Type Department Care Team (Late st Contact Info) Description 07/31/2023 Transcribe Orders Virtual Department [address] [place] [address] Eric Dinh MD [address] [place] [phone] [email or web address] Migraine without status migrainosus, not intractable, unspecified migraine type (Primary Dx); Blurred vision Social History Tobacco Use Types Packs/Day Years [...] documented as of this encounter Results * MRI BRAIN WITH AND WITHOUT CONTRAST (09/02/2023 2:25 PM EST) Anatomical Region Laterality Modality Head Magnetic Resonan ce 09/02/2023 8:24 PM EST Impressions 09/02/2023 9:21 PM EST Severe supratentorial white matter disease, likely reflecting chronic small vessel disease. No clear cause for headache identified by MRI. Narrative 09/02/2023 9:21 PM EST MRI BRAIN WITH AND WITHOUT CONTRAST Referring clinician's provided indication for this examination in Epic: Outside Radiology Order; migraine TECHNIQUE: MRI BRAIN WITH AND WITHOUT CONTRAST Multi-sequence, multi-planar MRI of the brain was performed before and after intravenous contrast. COMPARISON: Head CT 06/21/2023 FINDINGS: Brain Parenchyma: There is severe adjacent confluent T2/FLAIR hyperintensity in the periventricular and deep white matter which is nonspecific and can be seen in the setting of chronic small vessel disease. No evidence of acute infarct, mass lesion, or hemorrhage. Ventricular System and Extra-Axial Spaces: Normal. No evidence of midline shift or hydrocephalus. Extracranial Structures: Arterial flow voids in the skull base are present. Procedure Note Zachary Coughlin MD - 09/02/2023 MRI BRAIN WITH AND WITHOUT CONTRAST Referring clinician's provided indication for this examination in [facility]:Outside Radiology Order; migraine TECHNIQUE: MRI BRAIN WITH AND WITHOUT CONTRAST Multi-sequence, multi-planar MRI of the brain was performed before andafter intravenous contrast. COMPARISON: Head CT 06/21/2023 FINDINGS: Brain Parenchyma: There is severe adjacent confluent T2/FLAIRhyperintensity in the periventricular and deep white matter which isnonspecific and can be seen in the setting of chronic small vesseldisease. No evidence of acute infarct, mass lesion, or hemorrhage. Ventricular System and Extra-Axial Spaces: Normal. No evidence of midlineshift or hydrocephalus. Extracranial Structures: Arterial flow voids in the skull base arepresent. IMPRESSION: Severe supratentorial white matter disease, likely reflecting chronicsmall vessel disease. No clear cause for headache identified by MRI. Eric Dinh MD IMG MR HEAD/NECK Final Resu lt documented in this encounter Visit Diagnoses Diagnosis Migraine without status migrainosus, not intractable, unspecified migraine type- Primary Blurred vision Other specified visual disturbances Migraine without status migrainosus, not intractable, unspecified migraine type Blurred vision Other specified visual disturbances documented in this encounter Care Teams Division Director Relationship Specialty Start Date End Date Eric Dinh MD [address] [place] [phone] [email or web address] PCP - General Family Medicine 12/29/18 documented as of this encounter Additional Source Comments The information contained in this document represents components of the legal health record. It is not the complete legal health record.[facility]
--- OUTSIDE RECORDS SUMMARY | 2025-06-24 09:14 | XMS_ITS | Encounter Summary ---
Author Organization [facility] Address [address] [place] [address] [place] [address] Phone Care Team Providers Care Motorcycle Racer Name Role Phone Eric Dinh MD Primary Care Provider [phone]- [phone] Encounter Details Date Type Department Care Team (Late st Contact Info) Description 09/28/2023 Procedure Pass [facility], Ct Scan - [address] [address] Social History Tobacco Use Types Packs/Day Years [...] on filedocumented in this encounter Care Teams Motorcycle Racer Relationship Specialty Start Date End Date Eric Dinh MD [address] [place] [phone] [email or web address] PCP - General Family Medicine 12/29/18 documented as of this encounter Additional Source Comments The information contained in this document represents components of the legal health record. It is not the complete legal health record.[facility]
--- OUTSIDE RECORDS SUMMARY | 2025-06-24 09:14 | XMS_ITS | Encounter Summary ---
Author Organization [facility] Address [address] [place] [address] [place] [phone] Phone Care Team Providers Care Process Development Engineer Name Role Phone Eric Dinh MD Primary Care Provider +1- [phone] Encounter Details Date Type Department Care Team (Late st Contact Info) Description 07/31/2023 Procedure Pass [facility], [address] [address] Social History Tobacco Use Types Packs/Day Years [...] on filedocumented in this encounter Care Teams Process Development Engineer Relationship Specialty Start Date End Date Eric Dinh MD [address] [place] [phone] [email or web address] PCP - General Family Medicine 12/29/18 documented as of this encounter Additional Source Comments The information contained in this document represents components of the legal health record. It is not the complete legal health record.[facility]
[2025-06-24 10:18] LABS: Prostate Specific Antigen 5.98 ng/mL (<0.05-4.0)
== END 2025-06-24 08:11 | disposition home or self-care (01) ==
LOC: HO.LAB 08:10
PROVIDERS: PCP Family Medicine; Visit Provider Urology
DX: C61 Malignant neoplasm of prostate (principal); C79.51 Secondary malignant neoplasm of bone; Z12.5 Encounter for screening for malignant neoplasm of prostate
CPT/HCPCS: 36415; 84153; 84403

== ENCOUNTER 2025-07-02 07:57 | Outpatient (REF) | payer OTHER, SELFPAY ==
--- OUTSIDE RECORDS SUMMARY | 2025-07-02 08:01 | XMS_ITS | Encounter Summary ---
Author Organization [facility] Address [address] [place] [address] [place] [address] Phone Care Team Providers Care Electronics Maintenance Technician Name Role Phone Eric Dinh MD Primary Care Provider +1- [phone] Encounter Details Date Type Department Care Team (Late st Contact Info) Description 07/31/2023 Procedure Pass [facility], [address] [address] Social History Tobacco Use Types Packs/Day Years [...] on filedocumented in this encounter Care Teams Electronics Maintenance Technician Relationship Specialty Start Date End Date Eric Dinh MD [address] [place] [phone] PCP - General Family Medicine 12/29/18 documented as of this encounter Additional Source Comments The information contained in this document represents components of the legal health record. It is not the complete legal health record.[facility]
--- OUTSIDE RECORDS SUMMARY | 2025-07-02 08:01 | XMS_ITS | Encounter Summary ---
Author Organization [facility] Address [address] [place] [address] Phone Care Team Providers Care Library Attendant Name Role Phone Eric Dinh MD Primary Care Provider +1- [phone] Encounter Details Date Type Department Care Team (Late st Contact Info) Description 11/24/2023 Procedure Pass [facility], Ct Scan - [address] [address] Social History Tobacco Use Types Packs/Day Years [...] 11/24/2023 12:38 AM Priti Tinajero RN * [place] Suicide Severity Rating Scale (Screener/Recent Self-Report) Question [...] on filedocumented in this encounter Care Teams Library Attendant Relationship Specialty Start Date End Date Eric Dinh MD [address] [place] [phone] [email or web address] PCP - General Family Medicine 12/29/18 documented as of this encounter Additional Source Comments The information contained in this document represents components of the legal health record. It is not the complete legal health record.[facility]
--- OUTSIDE RECORDS SUMMARY | 2025-07-02 08:01 | XMS_ITS | Clinical Summary ---
Author Organization [facility] Address [address] [facility] [address] [place] [address] Phone Care Team Providers Care Optician Apprentice Dispensing Name Role Phone Svetlana Woodruff MD Primary Care Provider +1- [phone] Allergies Active Allergy Reactions Criticality Noted Date [...] Tenorio MD - 08/01/2024 2:24 PM EDT [facility] Patient Name: Kody Tinajero Attending MD:: DAINA TENORIO MD, Procedure Date: 08/01/2024 2:24 PM Date of : 1950 Age: 73 Admit Type: Outpatient Gender: Male Room: [facility] 05 Referring MD: SVETLANA WOODRUFF MD Exam [...] monitored continuously. The Olympus adult variable colonoscope [id number] #[id number] was introduced through the anus and [...] 2:24 PM Procedure Code(s): --- Professional --- 31310, Colonoscopy, flexible; diagnostic, including collection of specimen(s) by brushing or washing, when performed (separateprocedure) --- Technical --- 71474, Colonoscopy, flexible; diagnostic, including collection of specimen(s) [...] or abscess without bleeding CPT copyright 2021 [employer]. All rights reserved. The codes documented in this report are preliminary and upon executive recruiter reviewmay be revised to meet current compliance requirements. Procedure Date: 08/01/2024 2:24:[address] [place] [address] Svetlana Woodruff MD GI PROCEDURE ORDERABLES Fin al Result from Last 3 Months or Most Recently Relevant to Health Maintenance [facility] MED[facility] O MEDICARE REPLACEMENT MEDICARE REPLACEMENT MEDICARE REPLACEMENT MEDICARE REPLACEMENT MEDICARE REPLACEMENT MEDICARE REPLACEMENT O MEDICARE REPLACEMENT MEDICARE REPLACEMENT Care Teams Optician Apprentice Dispensing Relationship Specialty Start Date End Date Svetlana Woodruff MD [address] [place] [phone] [email or web address] PCP - General Family Medicine 12/29/18 Additional Source Comments The information contained in this document represents components of the legal health record. It is not the complete legal health record.[facility]
--- OUTSIDE RECORDS SUMMARY | 2025-07-02 08:01 | XMS_ITS | Encounter Summary ---
Author Organization [facility] Address [address] [facility] [address] [place] [address] Phone Care Team Providers Care Engagement Engineer Name Role Phone Eric Dinh MD Primary Care Provider +1- [phone] Encounter Details Date Type Department Care Team (Late st Contact Info) Description 08/01/2024 Procedure Pass [facility] Endoscopy Admitting Dept Virtual Department [address] [place] [address] Social History Tobacco Use Types Packs/Day Years [...] on filedocumented in this encounter Care Teams Engagement Engineer Relationship Specialty Start Date End Date Eric Dinh MD [address] [place] [phone] [email or web address] PCP - General Family Medicine 12/29/18 documented as of this encounter Additional Source Comments The information contained in this document represents components of the legal health record. It is not the complete legal health record.[facility]
--- OUTSIDE RECORDS SUMMARY | 2025-07-02 08:01 | XMS_ITS | Clinical Summary ---
Author Organization [employer] Address [address] [facility] [address] [place] [address] Care Team Providers Care Brass Burnisher Name Role Phone Unavailable Primary Care Provider [...] Periodontal disease 08/28/2024 Odontalgia 08/28/2024 Fractured dental temple with loss of materi al 08/28/2024 Social [...] patient's age to complete this topic Insurance [facility] [address] [place] [id number]
--- OUTSIDE RECORDS SUMMARY | 2025-07-02 08:01 | XMS_ITS | Encounter Summary ---
Author Organization [facility] Address [address] [place] [address] [place] [phone] Phone Care Team Providers Care Metal And Plastic Heater Name Role Phone Eric Dinh MD Primary Care Provider +1- [phone] Encounter Details Date Type Department Care Team (Late st Contact Info) Description 07/16/2019 Procedure Pass [facility] Endoscopy Admitting Dept Virtual Department [address] [place] [address] Social History Tobacco Use Types Packs/Day Years [...] documented as of this encounter Care Teams Metal And Plastic Heater Relationship Specialty Start Date End Date Eric Dinh MD [address] [place] [phone] [email or web address] PCP - General Family Medicine 12/29/18 documented as of this encounter Additional Source Comments The information contained in this document represents components of the legal health record. It is not the complete legal health record.[facility]
--- OUTSIDE RECORDS SUMMARY | 2025-07-02 08:01 | XMS_ITS | Encounter Summary ---
Author Organization [facility] Address [address] [place] [address] Phone Care Team Providers Care Coating Mixer Supervisor Name Role Phone Eric Dinh MD Primary Care Provider +1- [phone] Encounter Details Date Type Department Care Team (Late st Contact Info) Description 06/23/2023 Procedure Pass [facility], Ct Scan - [address] [address] Social History Tobacco Use Types Packs/Day Years [...] 11:42 AM EDT Pooja Aceves RN * [place] Suicide Severity Rating Scale (Screener/Recent Self-Report) Question [...] documented as of this encounter Care Teams Coating Mixer Supervisor Relationship Specialty Start Date End Date Eric Dinh MD [address] [place] [phone] [email or web address] PCP - General Family Medicine 12/29/18 documented as of this encounter Additional Source Comments The information contained in this document represents components of the legal health record. It is not the complete legal health record.[facility]
--- OUTSIDE RECORDS SUMMARY | 2025-07-02 08:01 | XMS_ITS | Encounter Summary ---
Author Organization [employer] Address [address] 7t [place] [address] Care Team Providers Care Superintendent Sanitation Name Role Phone Unavailable Primary Care Provider Unavailabl e Reason for Visit * Reason Onset Date Comments medication 08/29/2024 Encounter Details Date Type Department Care Team ([facility] st Contact Info) Description 08/29/2024 Telephone [facility] [address] [place], [place] [phone] Fredis Doe DDS [address] [place], [place] [phone] medication Social History Tobacco Use Types Packs/Day [...] Patient would like to be able to picking tech today prior to weekend starting documented in this encounter Plan of Treatment Not on file documented as of this encounter Visit Diagnoses Not on filedocumented in this encounter
--- OUTSIDE RECORDS SUMMARY | 2025-07-02 08:01 | XMS_ITS | Encounter Summary ---
Author Organization [facility] Address [address] [place] [phone] Phone Care Team Providers Care Guillotine Trimmer Name Role Phone Eric Dinh MD Primary Care Provider +1- [phone] Encounter Details Date Type Department Care Team (Late st Contact Info) Description 11/05/2023 Procedure Pass [facility], Ct Scan - [address] [address] Social History Tobacco Use Types Packs/Day Years [...] 11/05/2023 9:47 AM Ernestine Almeida RN * [place] Suicide Severity Rating Scale (Screener/Recent Self-Report) Question [...] on filedocumented in this encounter Care Teams Guillotine Trimmer Relationship Specialty Start Date End Date Eric Dinh MD [address] [place] [phone] [email or web address] PCP - General Family Medicine 12/29/18 documented as of this encounter Additional Source Comments The information contained in this document represents components of the legal health record. It is not the complete legal health record.[facility]
--- OUTSIDE RECORDS SUMMARY | 2025-07-02 08:01 | XMS_ITS | Encounter Summary ---
Author Organization [facility] Address [address] [place] [address] [place] [phone] Phone Care Team Providers Care Stabilizing Machine Operator Name Role Phone Eric Dinh MD Primary Care Provider +1- [phone] Encounter Details Date Type Department Care Team (Late st Contact Info) Description 03/19/2019 Procedure Pass [facility] Endoscopy Admitting Dept Virtual Department [address] [place] [address] Social History Tobacco Use Types Packs/Day Years [...] documented as of this encounter Care Teams Stabilizing Machine Operator Relationship Specialty Start Date End Date Eric Dinh MD [address] [place] [phone] [email or web address] PCP - General Family Medicine 12/29/18 documented as of this encounter Additional Source Comments The information contained in this document represents components of the legal health record. It is not the complete legal health record.[facility]
--- OUTSIDE RECORDS SUMMARY | 2025-07-02 08:01 | XMS_ITS | Encounter Summary ---
Author Organization [facility] Address [address] [place] [address] Phone Care Team Providers Care Early Years Teacher Name Role Phone Eric Dinh MD Primary Care Provider +1- [phone] Encounter Details Date Type Department Care Team (Late st Contact Info) Description 08/18/2019 Transcribe Orders Virtual Department [address] [place] [address] Eric Dinh MD [address] [place] [phone] [email or web address] Dyspnea on exertion (Primary Dx) Social History [...] documented as of this encounter Care Teams Early Years Teacher Relationship Specialty Start Date End Date Eric Dinh MD [address] [place] [phone] [email or web address] PCP - General Family Medicine 12/29/18 documented as of this encounter Additional Source Comments The information contained in this document represents components of the legal health record. It is not the complete legal health record.[facility]
--- OUTSIDE RECORDS SUMMARY | 2025-07-02 08:01 | XMS_ITS | Encounter Summary ---
Author Organization [facility] Address [address] [place] [address] [place] [phone] Phone Care Team Providers Care Generation Technician Name Role Phone Eric Dinh MD Primary Care Provider [phone]- [phone] Reason for Referral * MRI/CAT Scan - Closed Specialty Diagnoses / Procedures Referred By Contac t Referred To Contact Radiology Diagnoses Migraine without status migrainosus, not intractable, unspecified migraine type Blurred vision Procedures MRI Brain CHG MRI BRAIN COMBO Eric Dinh MD [address] [place] [address] Phone: tel: fax: [email or web address] Referral ID Status Reason Start Date Expiration Date Visits Re quested Visits Authorized [id number] Closed 07/22/2023 11/19/2023 1 1 Encounter Details Date Type Department Care Team (Late st Contact Info) Description 07/31/2023 Transcribe Orders Virtual Department [address] [place] [address] Eric Dinh MD [address] [place] [phone] [email or web address] Migraine without status migrainosus, not intractable, unspecified [...] clinician's provided indication for this examination in [facility]:Outside Radiology Order; migraine TECHNIQUE: MRI BRAIN [...] disturbances documented in this encounter Care Teams Generation Technician Relationship Specialty Start Date End Date Eric Dinh MD [address] [place] [phone] [email or web address] PCP - General Family Medicine 12/29/18 documented as of this encounter Additional Source Comments The information contained in this document represents components of the legal health record. It is not the complete legal health record.[facility]
--- OUTSIDE RECORDS SUMMARY | 2025-07-02 08:01 | XMS_ITS | Encounter Summary ---
Author Organization [facility] Address [address] [place] [address] [place] [address] Phone Care Team Providers Care Surveyor Chain Helper Name Role Phone Eric Dinh MD Primary Care Provider +1- [phone] Encounter Details Date Type Department Care Team (Late st Contact Info) Description 09/28/2023 Procedure Pass [facility], Ct Scan - [address] [address] Social History Tobacco Use Types Packs/Day Years [...] on filedocumented in this encounter Care Teams Surveyor Chain Helper Relationship Specialty Start Date End Date Eric Dinh MD [address] [place] [phone] [email or web address] PCP - General Family Medicine 12/29/18 documented as of this encounter Additional Source Comments The information contained in this document represents components of the legal health record. It is not the complete legal health record.[facility]
--- OUTSIDE RECORDS SUMMARY | 2025-07-02 08:01 | XMS_ITS | Encounter Summary ---
Author Organization [facility] Address [address] [place] [address] Phone Care Team Providers Care Target Protection Specialist Name Role Phone Eric Dinh MD Primary Care Provider +1- [phone] Encounter Details Date Type Department Care Team (Late st Contact Info) Description 11/24/2023 Procedure Pass [facility], Ct Scan - [address] [address] Social History Tobacco Use Types Packs/Day Years [...] 11/24/2023 12:38 AM Priti Tinajero RN * [place] Suicide Severity Rating Scale (Screener/Recent Self-Report) Question [...] on filedocumented in this encounter Care Teams Target Protection Specialist Relationship Specialty Start Date End Date Eric Dinh MD [address] [place] [phone] [email or web address] PCP - General Family Medicine 12/29/18 documented as of this encounter Additional Source Comments The information contained in this document represents components of the legal health record. It is not the complete legal health record.[facility]
--- OUTSIDE RECORDS SUMMARY | 2025-07-02 08:01 | XMS_ITS | Encounter Summary ---
Author Organization [facility] Address [address] [place] [address] [place] [address] Phone Care Team Providers Care Termite Treater Name Role Phone Eric Dinh MD Primary Care Provider +1- [phone] Encounter Details Date Type Department Care Team (Late st Contact Info) Description 03/03/2020 Procedure Pass [facility] Endoscopy Admitting Dept Virtual Department [address] [place] [address] Social History Tobacco Use Types Packs/Day Years [...] documented as of this encounter Care Teams Termite Treater Relationship Specialty Start Date End Date Eric Dinh MD [address] [place] [phone] [email or web address] PCP - General Family Medicine 12/29/18 documented as of this encounter Additional Source Comments The information contained in this document represents components of the legal health record. It is not the complete legal health record.[facility]
--- OUTSIDE RECORDS SUMMARY | 2025-07-02 08:02 | XMS_ITS | Encounter Summary ---
Author Organization [facility] Address [address] [place] [address] [place] [phone] Phone Care Team Providers Care Risk Control Analyst Name Role Phone Eric Dinh MD Primary Care Provider +1- [phone] Encounter Details Date Type Department Care Team (Late st Contact Info) Description 09/28/2023 Procedure Pass [facility], Ct Scan - [address] [address] Social History Tobacco Use Types Packs/Day Years [...] on filedocumented in this encounter Care Teams Risk Control Analyst Relationship Specialty Start Date End Date Eric Dinh MD [address] [place] [phone] [email or web address] PCP - General Family Medicine 12/29/18 documented as of this encounter Additional Source Comments The information contained in this document represents components of the legal health record. It is not the complete legal health record.[facility]
--- OUTSIDE RECORDS SUMMARY | 2025-07-02 08:02 | XMS_ITS | Encounter Summary ---
Author Organization [facility] Address [address] [place] [address] [place] [address] Phone Care Team Providers Care Rn Gastroenterology Name Role Phone Eric Dinh MD Primary Care Provider +1- [phone] Encounter Details Date Type Department Care Team (Late st Contact Info) Description 10/08/2023 Procedure Pass [facility], Ct Scan - [address] [address] Social History Tobacco Use Types Packs/Day Years [...] on filedocumented in this encounter Care Teams Rn Gastroenterology Relationship Specialty Start Date End Date Eric Dinh MD [address] [place] [phone] [email or web address] PCP - General Family Medicine 12/29/18 documented as of this encounter Additional Source Comments The information contained in this document represents components of the legal health record. It is not the complete legal health record.[facility]
--- OUTSIDE RECORDS SUMMARY | 2025-07-02 08:02 | XMS_ITS | Encounter Summary ---
Author Organization [facility] Address [address] [place] [address] [place] [address] Phone Care Team Providers Care Rental Car Porter Name Role Phone Eric Dinh MD Primary Care Provider +1- [phone] Encounter Details Date Type Department Care Team (Late st Contact Info) Description 08/04/2020 Procedure Pass [facility] [address] [place] [address] Social History Tobacco Use Types Packs/Day Years [...] documented as of this encounter Care Teams Rental Car Porter Relationship Specialty Start Date End Date Eric Dinh MD [address] [place] [phone] [email or web address] PCP - General Family Medicine 3/17/19 documented as of this encounter Additional Source Comments The information contained in this document represents components of the legal health record. It is not the complete legal health record.[facility]
--- OUTSIDE RECORDS SUMMARY | 2025-07-02 08:02 | XMS_ITS | Encounter Summary ---
Author Organization [facility] Address [address] [place] [address] [place] [phone] Phone Care Team Providers Care Park Landscape Architect Name Role Phone Eric Dinh MD Primary Care Provider +1- [phone] Encounter Details Date Type Department Care Team (Late st Contact Info) Description 10/08/2023 Procedure Pass [facility], Ct Scan - [address] [address] Social History Tobacco Use Types Packs/Day Years [...] on filedocumented in this encounter Care Teams Park Landscape Architect Relationship Specialty Start Date End Date Eric Dinh MD [address] [place] [phone] [email or web address] PCP - General Family Medicine 12/29/18 documented as of this encounter Additional Source Comments The information contained in this document represents components of the legal health record. It is not the complete legal health record.[facility]
--- OUTSIDE RECORDS SUMMARY | 2025-07-02 08:02 | XMS_ITS | Encounter Summary ---
Author Organization [facility] Address [address] [place] [address] [place] [address] Phone Care Team Providers Care Segment Assembler Name Role Phone Eric Dinh MD Primary Care Provider +1- [phone] Encounter Details Date Type Department Care Team (Late st Contact Info) Description 04/10/2020 Procedure Pass [facility], Ct Scan - [address] [address] Social History Tobacco Use Types Packs/Day Years [...] documented as of this encounter Care Teams Segment Assembler Relationship Specialty Start Date End Date Eric Dinh MD [address] [place] [phone] [email or web address] PCP - General Family Medicine 12/29/18 documented as of this encounter Additional Source Comments The information contained in this document represents components of the legal health record. It is not the complete legal health record.[facility]
--- OUTSIDE RECORDS SUMMARY | 2025-07-02 08:02 | XMS_ITS | Encounter Summary ---
Author Organization [facility] Address [address] [place] [address] [place] [phone] Phone Care Team Providers Care Orthotic Fitter Name Role Phone Eric Dinh MD Primary Care Provider +1- [phone] Encounter Details Date Type Department Care Team (Late st Contact Info) Description 10/08/2023 Procedure Pass [facility], Ct Scan - [address] [address] Social History Tobacco Use Types Packs/Day Years [...] on filedocumented in this encounter Care Teams Orthotic Fitter Relationship Specialty Start Date End Date Eric Dinh MD [address] [place] [phone] [email or web address] PCP - General Family Medicine 12/29/18 documented as of this encounter Additional Source Comments The information contained in this document represents components of the legal health record. It is not the complete legal health record.[facility]
[2025-07-07 12:33] LABS: Levetiracetam Keppra 44.3 mcg/mL (6.0-46.0)
== END 2025-07-02 07:58 | disposition home or self-care (01) ==
LOC: HO.LAB 07:57
PROVIDERS: PCP Family Medicine; Visit Provider Registered Nurse
DX: Z51.81 Encounter for therapeutic drug level monitoring (principal); G40.209 Localization-related (focal) (partial) symptomatic epilepsy and epileptic syndromes with complex partial seizures, not intractable, without status epilepticus
CPT/HCPCS: 36415; 80177

== ENCOUNTER 2025-07-08 11:10 | Outpatient (REF) | payer OTHER, SELFPAY | END 2025-07-08 11:11 | disposition home or self-care (01) | LOC: HO.LNP 11:10 | PROVIDERS: PCP Family Medicine; Visit Provider Urology | DX: C67.1 Malignant neoplasm of dome of bladder (principal); C61 Malignant neoplasm of prostate; C79.51 Secondary malignant neoplasm of bone; N32.81 Overactive bladder; Z19.2 Hormone resistant malignancy status | CPT/HCPCS: 52000; 81003; 88112; 96402; 99212; J9217 ==

== ENCOUNTER 2025-07-08 11:10 | Outpatient (AMB) | payer OTHER, SELFPAY ==
--- NOTE | 2025-07-08 11:09 | MHC.OFFVIS ---
Intake Visit Reasons: GnRH/cysto/PSA/Testo Intake Note: Patient is present for Cystoscopy Urology Medication:TOLTERODINE,VITAMIN B2,TAMSULOSIN Antibiotic Allergy:NONE Blood Thinner:NONE Labs done : 06/24/2025 PSA 5.98, Total Testosterone 3 Probation Counselor Required: No Accompanied by: sustainability director Allergies oxycodone (Percocet) Adverse Reaction (Intermediate, Verified 07/08/25 11:11) face got really red HPI Comments Details: Kody is a very pleasant male. He is a patient of Dr. Acosta. 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 - try and start oral antiandrogen 04/08 PET-CT question small area avidity bladder apex may represent small metastatic node but otherwise clear - PSA 3.6, testosterone 2 01/06 2.4 T 5, GNRH, cystoscopy - small superficial lesion 09/07 PSA 2.9 T 4 - Cysto - negative 07/08 GnRH (plan for 3 injections) 06/07 PSA 14 T 75 - DEXA scan osteopenia 03/07 PSA 1.9 T 23 Prolia injection - Bone Scan - no evidence of active metastatic disease Cystoscopy normal - Trial of OAB medication tolterodine 12/08 PSA 0.86 T <3 08/06 - PSA 0.65 T low Bone Scan - A few additional Mild nonspecific abnormalities are noted as described above and these are all likely arthritic or traumatic in etiology. None of these abnormalities is strongly suspicious for metastatic disease Remains on GnRH as single therapy 07/07 CT with question of residual prostate activity - may benefit from PSMA scan 05/06 - PSA 0.5 T<1 PSA low Prolia and GnRH agonist today Three month follow-up labs with bone scan Has been on combined therapy for 3 years Prostate cancer 12/30 initial treatment XRT with rising PSA and a bone scan lesion 01/04 PSA 0.4 T <1 - continue oral antiandrogen. Bone scan normal. Abdominal CT scan normal. 10/05 Abiraterone 2 tab daily - GnRH administered 05/05 abiraterone 2 tabs daily since seizure 04/05 GnRH with abiraterone - reduced to 3 tabs daily Prostate cancer metastatic Biopsy 12/30 - multicore Pelican 8, PSA 96 Initial treatment EXBRT 11/03 Metastatic treatment combination GnRH injections with oral antiantigen PSA 09/03 0.2, 03/04 PSA 0.23, 07/05 0.2 T 9, 01/03 P 0.4 T 122, 04/05 0.3, 07/06 0.3, 10/05 0.6 T 3, 04/06 0.5 T <1 Imaging 11/03 bone scan with evidence of metastatic disease to the ribs and iliac crest - 11/[address] no evidence of bony metastases - 03/04 bone scan shows improvement, density shows osteopenia - 12/06 Bone Scan with improvement on iliac crest - 06/05 Bone Density - osteopenia - on calcium supplementation - 07/06 bone scan with minimal evidence of bony metastases Bladder cancer recurrent low-grade 12/2020, 06/05, 05/06 Initial diagnosis July 2018 low-grade superficial Cystoscopy Aug 2020 small superficial recurrence, 04/04 NAD, 08/04 NAD, 09/06 Cytology 04/05 NAD, 09/06 NAD Intervention - December 2020 TURBT 2 cm with satellite lesions, 06/05 multiple small lesions removed (small preperitoneal bladder perf) - 04/06 urinary papilloma Pathology - December 2020 low-grade bladder cancer, 06/05 low-grade superficial - 04/06 Inflammatory Adjuvant therapy - January 2021 6 week gemcitabine induction, 08/04 3 weeks gemcitabine 06/05 6 week reinduction gemcitabine PFSH Medical History (Updated 07/08/25 @ 11:36 by Dom Maier MD) Gait disorder Vascular dementia Cervical spondylarthritis Cerebral microvascular disease Chronic migraine without aura, intractable, without status migrainosus Pulmonary emboli Hx of migraines CKD (chronic kidney disease), stage III Dizziness Malignant tumor of prostate (05/16/21) Hyperlipidemia (05/16/21) Essential hypertension (05/16/21) Complex partial seizure disorder Seizure disorder Tremor Cerebral microvascular disease Bone cancer Bladder cancer Bladder tumor Prostate CA Hematuria Elevated cholesterol HTN (hypertension) Surgical History Hx of colonoscopy History of cystoscopy H/O prostate biopsy Social History (Reviewed 01/01/25 @ 09:02 by MARILYN Ortiz Household Members: Spouse Housing: House Are you a primary intensive care unit nurse to a significant other at home: No Do you presently have visiting nurse or other home services: No Alcohol intake: never Comment: no count Patient Tobacco Use Status: Never used Tobacco Second Hand Smoke Exposure: No Advance Directives Date on File: 05/22/22 service: No Current occupational status: retired Review of Systems Const Denies chills and Denies fever(s) Card Reports no additional complaints and Denies syncope Resp Denies cough GI Denies abdominal pain and Denies heartburn Reports as per HPI and Denies change in libido Neuro Denies syncope Psych Denies change in libido Endo Denies change in libido Physical Exam Const General: cooperative, healthy appearing, comfortable and no acute distress Orientation/consciousness: patient oriented x3 HEENT Face and sinus: Yes normal facial exam Mouth: moist mucous membranes Neck Neck: Yes normal visual inspection, Yes full ROM and Yes trachea midline Chest Chest palpation & inspection: normal inspection of the chest Resp Effort & Inspection: normal respiratory effort, able to speak in complete sentences and no respiratory distress GI Inspection: Yes normal to inspection Back/Spine/Pelvis Cervical Spine: normal cervical lordosis Thoracic/Lumbar Spine: thoracic and lumbar spine normal to inspection Skin General skin exam: no rashes or lesions noted Neuro General: patient oriented x3, gait normal, tone normal and moves all extremities Extrem General: Yes normal to inspection and Yes capillary refill normal Office Procedures Cystoscopy Consent Discussed risk and benefit or proposed procedure with the patient. Information consent for procedure given to the patient. Discussed technical aspects, risks, benefits and alternatives in full. Addressed all of the patient's questions and concerns regarding the procedure. The patient demonstrated knowledge and understanding. They wish to proceed with this procedure. Preparation The patient was prepped in the usual manner. A printer small print shop was present and in the room. Genitalia was prepped with betadine solution in a sterile manner. Lidocaine Jelly 2% was placed into the urethra and 16Fr flexible Olympus cystoscope was inserted into the meatus after adequate lubrication. Procedure Cystoscopy performed using a disposable [employer] digital 16 Occitan cystoscope. Meatus circumcised Urethra anterior and posterior urethra normal Prostatic Urethra unremarkable - open Bladder examination with retroflexion of cystoscope Bladder Orifices normal shape and position Bladder Capacity Normal Trabeculations grade group 1 Cellule Formation None Diverticulum Formation None Mucosal Erythema trace Bladder Tumor None [id number] DISPOSABLE SCOPE URO-G FLEXIBLE SCOPE Procedure code (CPT) selection complete Office Meds lidocaine HCl 2 % mucosal jelly in applicator Performing Provider: Dom Maier MD Performing Location: [facility] [place] [facility] Administered by: Prateek Warren LPN on 07/08/25 11:31 Dose Route Admin Location Dispensed Lot Number Expiration Date [facility] Laser Systems Engineer 10 mL intra-urethral 10 mL nitrofurantoin monohydrate/macrocrystals 100 mg capsule Performing Provider: Dom Maier MD Performing Location: [facility] [place] Urology [facility] Administered by: Prateke Warren LPN on 07/08/25 11:31 Dose Route Admin Location Dispensed Lot Number Expiration Date [facility] Laser Systems Engineer 100 mg PO 1 cap Eligard (6 month) 45 mg (6 month) subcutaneous syringe Performing Provider: Dom Maier MD Performing Location: [facility] [place] Urology [facility] Administered by: Prateek Warren LPN on 07/08/25 11:31 Dose Route Admin Location Dispensed Lot Number Expiration Date [facility] Laser Systems Engineer 45 mg subcut left arm 45 mg [id number] 06/15/26 [id number] [employer] Total Dispensed Waste 45 mg 0 % Assessment & Plan Assessment & Plan (1) Bladder cancer: Comment: Recurrent low-grade multifocal - 06/05 Code(s): C67.9 - Malignant neoplasm of bladder, unspecified Category: Medical Qualifiers: Bladder location: dome Qualified Code(s): C67.1 - Malignant neoplasm of dome of bladder (2) Prostate cancer metastatic to bone: Code(s): C61 - Malignant neoplasm of prostate; C79.51 - Secondary malignant neoplasm of bone Category: Medical (3) Hormone resistant prostate cancer: Code(s): C61 - Malignant neoplasm of prostate; Z19.2 - Hormone resistant malignancy status Category: Medical Plan Three-month follow-up lab work Orders: Orders AMB Cystoscopy Today N32.81 - Overactive bladder, N39.0 - Urinary tract infection, site not specified AMB Leuprolide Injection - Practice Supplied Today C61 - Malignant neoplasm of prostate, C79.51 - Secondary malignant neoplasm of bone Testosterone, Total 3 Months C61 - Malignant neoplasm of prostate, Z19.2 - Hormone resistant malignancy status Prostate Specific Antigen 3 Months C61 - Malignant neoplasm of prostate, Z19.2 - Hormone resistant malignancy status Medications: New apalutamide Take 4 tabs in the morning with or without food 240 mg (4 x 60 mg) PO DAILY 360 tabs 1RF 90 days C61 - Malignant neoplasm of prostate, Z19.2 - Hormone resistant malignancy status Patient Instructions: This note is constructed using voice recognition software. While every effort has been made to ensure accuracy packer and carry out errors may have been included. Imaging studies, laboratory and physical exam results were discussed and reviewed in detail. No major barriers to patient understanding were identified. An opportunity to ask questions regarding the treatment plan was provided. All questions were answered. The patient expressed understanding and agreement with the above treatment plan. The patient is aware they should contact our office by phone for worsening of their current condition or the appearance of new urologic symptoms. Compliance is encouraged with any medications and followup testing that is ordered. It is a privilege to participate in the urologic care of your patient. If you have any questions or concerns regarding treatment for the above conditions, or other urologic issues, please do not hesitate to contact me. The office telephone contact is [phone]. Sincerely, Dr Dom Maier MD, [facility] - Urology Compassionate Specialist Care for the Genitourinary System Coding Level of Care Code Est Pt Level 3 (66412) Complex EM visit Add On G2211 Diagnoses Malignant neoplasm of dome of urinary bladder C67.1 Bladder location: dome Prostate cancer metastatic to bone C61; C79.51 Hormone resistant prostate cancer C61; Z19.2 CPT Codes Cystoscopy - CPT: [id number] ([id number])
--- OUTSIDE RECORDS SUMMARY | 2025-07-08 14:19 | XMS_ITS | Encounter Summary ---
Author Organization [facility] Address [address] [place] [address] [place] [address] Phone Care Team Providers Care Tankage Supervisor Name Role Phone Eric Dinh MD Primary Care Provider [phone]- [phone] Encounter Details Date Type Department Care Team (Late st Contact Info) Description 09/28/2023 Procedure Pass [facility], Ct Scan - [address] [address] Social History Tobacco Use Types Packs/Day Years [...] on filedocumented in this encounter Care Teams Tankage Supervisor Relationship Specialty Start Date End Date Eric Dnih MD [address] [place] [phone] [email or web address] PCP - General Family Medicine 12/29/18 documented as of this encounter Additional Source Comments The information contained in this document represents components of the legal health record. It is not the complete legal health record.[facility]
--- OUTSIDE RECORDS SUMMARY | 2025-07-08 14:19 | XMS_ITS | Encounter Summary ---
Author Organization [facility] Address [address] [place] [address] [place] [address] Phone Care Team Providers Care Hot Plate Plywood Press Operator Name Role Phone Eric Dinh MD Primary Care Provider [phone]- [phone] Encounter Details Date Type Department Care Team (Late st Contact Info) Description 03/03/2020 Procedure Pass [facility] Endoscopy Admitting Dept Virtual Department [address] [place] [address] Social History Tobacco Use Types Packs/Day Years [...] documented as of this encounter Care Teams Hot Plate Plywood Press Operator Relationship Specialty Start Date End Date Eric Dinh MD [address] [place] [phone] [email or web address] PCP - General Family Medicine 12/29/18 documented as of this encounter Additional Source Comments The information contained in this document represents components of the legal health record. It is not the complete legal health record.[facility]
--- OUTSIDE RECORDS SUMMARY | 2025-07-08 14:19 | XMS_ITS | Encounter Summary ---
Author Organization [facility] Address [address] [place] [address] [place] [address] Phone Care Team Providers Care Pole Sander Operator Name Role Phone Eric Dinh MD Primary Care Provider +1- [phone] Encounter Details Date Type Department Care Team (Late st Contact Info) Description 10/08/2023 Procedure Pass [facility], Ct Scan - [address] [address] Social History Tobacco Use Types Packs/Day Years [...] on filedocumented in this encounter Care Teams Pole Sander Operator Relationship Specialty Start Date End Date Eric Dinh MD [address] [place] [phone] [email or web address] PCP - General Family Medicine 12/29/18 documented as of this encounter Additional Source Comments The information contained in this document represents components of the legal health record. It is not the complete legal health record.[facility]
--- OUTSIDE RECORDS SUMMARY | 2025-07-08 14:19 | XMS_ITS | Encounter Summary ---
Author Organization [facility] Address [address] [place] [address] [place] [address] Phone Care Team Providers Care Rope Laying Machine Operator Name Role Phone Eric Dinh MD Primary Care Provider [phone]- [phone] Encounter Details Date Type Department Care Team (Late st Contact Info) Description 10/08/2023 Procedure Pass [facility], Ct Scan - [address] [address] Social History Tobacco Use Types Packs/Day Years [...] on filedocumented in this encounter Care Teams Rope Laying Machine Operator Relationship Specialty Start Date End Date Eric Dinh MD [address] [place] [phone] [email or web address] PCP - General Family Medicine 12/29/18 documented as of this encounter Additional Source Comments The information contained in this document represents components of the legal health record. It is not the complete legal health record.[facility]
--- OUTSIDE RECORDS SUMMARY | 2025-07-08 14:19 | XMS_ITS | Encounter Summary ---
Author Organization [facility] Address [address] [place] [address] Phone Care Team Providers Care Wellness Nurse Name Role Phone Eric Dinh MD Primary Care Provider [phone]- [phone] Encounter Details Date Type Department Care Team (Late st Contact Info) Description 06/23/2023 Procedure Pass [facility], Ct Scan - [address] [address] Social History Tobacco Use Types Packs/Day Years [...] 11:42 AM EDT Pooja Aceves RN * [place] Suicide Severity Rating Scale (Screener/Recent Self-Report) Question [...] documented as of this encounter Care Teams Wellness Nurse Relationship Specialty Start Date End Date Eric Dinh MD [address] [place] [phone] [email or web address] PCP - General Family Medicine 12/29/18 documented as of this encounter Additional Source Comments The information contained in this document represents components of the legal health record. It is not the complete legal health record.[facility]
--- OUTSIDE RECORDS SUMMARY | 2025-07-08 14:19 | XMS_ITS | Encounter Summary ---
Author Organization [facility] Address [address] [place] [address] [place] [phone] Phone Care Team Providers Care Leather Belt Shaper Name Role Phone Eric Dinh MD Primary Care Provider +1- [phone] Encounter Details Date Type Department Care Team (Late st Contact Info) Description 08/04/2020 Procedure Pass [facility] [address] [place] [address] Social History Tobacco Use Types Packs/Day Years [...] documented as of this encounter Care Teams Leather Belt Shaper Relationship Specialty Start Date End Date Eric Dinh MD [address] [place] [phone] [email or web address] PCP - General Family Medicine 3/17/19 documented as of this encounter Additional Source Comments The information contained in this document represents components of the legal health record. It is not the complete legal health record.[facility]
--- OUTSIDE RECORDS SUMMARY | 2025-07-08 14:19 | XMS_ITS | Clinical Summary ---
Author Organization [employer] Address [address] [facility] 7[address] [place] [address] Care Team Providers Care Pallet Rectifier Name Role Phone Unavailable Primary Care Provider [...] Periodontal disease 08/28/2024 Odontalgia 08/28/2024 Fractured dental anabaptism with loss of materi al 08/28/2024 Social [...] patient's age to complete this topic Insurance [facility] [address] [place] [id number]
--- OUTSIDE RECORDS SUMMARY | 2025-07-08 14:19 | XMS_ITS | Encounter Summary ---
Author Organization [employer] Address [address] [facility] 7t [place] [address] Care Team Providers Care Import/Export Freight Forwarder Name Role Phone Unavailable Primary Care Provider Unavailabl e Reason for Visit * Reason Onset Date Comments medication 08/29/2024 Encounter Details Date Type Department Care Team ([facility] st Contact Info) Description 08/29/2024 Telephone [facility] ADULT D[facility]AL [address] [place], [place] [phone] Fredis Doe DDS [address] [place], [place] [phone] medication Social History Tobacco Use Types Packs/Day [...] pharmacy from appt on [facility]. [facility] * Telephone Encounter - Sheridan Barbour - 08/29/2024 11:36 AM EST Message for Dr. Doe Patient called in reporting that medication antibiotic was not sent to pharmacy for patient yesterday. Patient would like to be able to brick picker today prior to weekend starting documented in this encounter Plan of Treatment Not on file documented as of this encounter Visit Diagnoses Not on filedocumented in this encounter
--- OUTSIDE RECORDS SUMMARY | 2025-07-08 14:19 | XMS_ITS | Encounter Summary ---
Author Organization [facility] Address [address] [place] [address] [place] [phone] Phone Care Team Providers Care Certified Solid Waste Facility Operator Name Role Phone Eric Dinh MD Primary Care Provider +1- [phone] Encounter Details Date Type Department Care Team (Late st Contact Info) Description 10/08/2023 Procedure Pass [facility], Ct Scan - [address] [address] Social History Tobacco Use Types Packs/Day Years [...] on filedocumented in this encounter Care Teams Certified Solid Waste Facility Operator Relationship Specialty Start Date End Date Eric Dinh MD [address] [place] [phone] [email or web address] PCP - General Family Medicine 12/29/18 documented as of this encounter Additional Source Comments The information contained in this document represents components of the legal health record. It is not the complete legal health record.[facility]
--- OUTSIDE RECORDS SUMMARY | 2025-07-08 14:19 | XMS_ITS | Encounter Summary ---
Author Organization [facility] Address [address] [place] [address] Phone Care Team Providers Care Drafter Plumbing Name Role Phone Eric Dinh MD Primary Care Provider +1- [phone] Encounter Details Date Type Department Care Team (Late st Contact Info) Description 11/05/2023 Procedure Pass [facility], Ct Scan - [address] [address] Social History Tobacco Use Types Packs/Day Years [...] 11/05/2023 9:47 AM Ernestine Almeida RN * [place] Suicide Severity Rating Scale (Screener/Recent Self-Report) Question [...] on filedocumented in this encounter Care Teams Drafter Plumbing Relationship Specialty Start Date End Date Eric Dinh MD [address] [place] [phone] [email or web address] PCP - General Family Medicine 12/29/18 documented as of this encounter Additional Source Comments The information contained in this document represents components of the legal health record. It is not the complete legal health record.[facility]
--- OUTSIDE RECORDS SUMMARY | 2025-07-08 14:19 | XMS_ITS | Encounter Summary ---
Author Organization [facility] Address [address] [place] [address] [place] [phone] Phone Care Team Providers Care Shipping Lead Name Role Phone Eric Dinh MD Primary Care Provider [phone]- [phone] Encounter Details Date Type Department Care Team (Late st Contact Info) Description 07/16/2019 Procedure Pass [facility] Endoscopy Admitting Dept Virtual Department [address] [place] [address] Social History Tobacco Use Types Packs/Day Years [...] documented as of this encounter Care Teams Shipping Lead Relationship Specialty Start Date End Date Eric Dinh MD [address] [place] [phone] [email or web address] PCP - General Family Medicine 12/29/18 documented as of this encounter Additional Source Comments The information contained in this document represents components of the legal health record. It is not the complete legal health record.[facility]
--- OUTSIDE RECORDS SUMMARY | 2025-07-08 14:19 | XMS_ITS | Encounter Summary ---
Author Organization [facility] Address [address] [facility] [address] [place] [phone] Phone Care Team Providers Care Extrusion Technician Name Role Phone Eric Dinh MD Primary Care Provider +1- [phone] Encounter Details Date Type Department Care Team (Late st Contact Info) Description 08/01/2024 Procedure Pass [facility] Endoscopy Admitting Dept Virtual Department [address] [place] [address] Social History Tobacco Use Types Packs/Day Years [...] on filedocumented in this encounter Care Teams Extrusion Technician Relationship Specialty Start Date End Date Eric Dinh MD [address] [place] [phone] [email or web address] PCP - General Family Medicine 12/29/18 documented as of this encounter Additional Source Comments The information contained in this document represents components of the legal health record. It is not the complete legal health record.[facility]
--- OUTSIDE RECORDS SUMMARY | 2025-07-08 14:19 | XMS_ITS | Encounter Summary ---
Author Organization [facility] Address [address] [place] [address] Phone Care Team Providers Care Recorder Gravity Prospecting Name Role Phone Eric Dinh MD Primary Care Provider +1- [phone] Encounter Details Date Type Department Care Team (Late st Contact Info) Description 11/24/2023 Procedure Pass [facility], Ct Scan - [address] [address] Social History Tobacco Use Types Packs/Day Years [...] 11/24/2023 12:38 AM Priti Tinajero RN * [place] Suicide Severity Rating Scale (Screener/Recent Self-Report) Question [...] on filedocumented in this encounter Care Teams Recorder Gravity Prospecting Relationship Specialty Start Date End Date Eric Dinh MD [address] [place] [phone] [email or web address] PCP - General Family Medicine 12/29/18 documented as of this encounter Additional Source Comments The information contained in this document represents components of the legal health record. It is not the complete legal health record.[facility]
--- OUTSIDE RECORDS SUMMARY | 2025-07-08 14:19 | XMS_ITS | Clinical Summary ---
Author Organization [facility] Address [address] [place] [address] Phone Care Team Providers Care Retail Asset Protection Specialist Name Role Phone Svetlana Woodruff MD Primary Care Provider +1- [phone] Allergies Active Allergy Reactions Criticality Noted Date [...] Tenorio MD - 08/01/2024 2:24 PM EDT [facility] Patient Name: Kody Tinajero Attending MD:: DAINA TENORIO MD, Procedure Date: 08/01/2024 2:24 PM Date of : 1950 Age: 73 Admit Type: Outpatient Gender: Male Room: [facility] 05 Referring MD: SVETLANA WOODRUFF MD [...] monitored continuously. The Olympus adult variable colonoscope [id number] #7 was introduced through the anus and [...] 2:24 PM Procedure Code(s): --- Professional --- 21435, Colonoscopy, flexible; diagnostic, including collection of specimen(s) by brushing or washing, when performed (separateprocedure) --- Technical --- 72203, Colonoscopy, flexible; diagnostic, including collection of specimen(s) [...] in this report are preliminary and upon pictures editor reviewmay be revised to meet current compliance requirements. Procedure Date: 08/01/2024 2:24:[address] [place] [address] Svetlana Woodruff MD GI PROCEDURE ORDERABLES Fin al Result from Last 3 Months or Most Recently Relevant to Health Maintenance Insurance [employer] MEDICARE REPLACEMENT O MEDICARE REPLACEMENT MEDICARE REPLACEMENT MEDICARE REPLACEMENT MEDICARE REPLACEMENT MEDICARE REPLACEMENT MEDICARE REPLACEMENT O MEDICARE REPLACEMENT MEDICARE REPLACEMENT Care Teams Retail Asset Protection Specialist Relationship Specialty Start Date End Date Svetlana Woodruff MD [address] [place] [phone] [email or web address] PCP - General Family Medicine 12/29/18 Additional Source Comments The information contained in this document represents components of the legal health record. It is not the complete legal health record.[facility]
--- OUTSIDE RECORDS SUMMARY | 2025-07-08 14:19 | XMS_ITS | Encounter Summary ---
Author Organization [facility] Address [address] [place] [address] [place] [address] Phone Care Team Providers Care Pump House Engineer Name Role Phone Eric Dinh MD Primary Care Provider +1- [phone] Encounter Details Date Type Department Care Team (Late st Contact Info) Description 07/31/2023 Procedure Pass [facility], [address] [address] Social History Tobacco Use Types Packs/Day Years [...] on filedocumented in this encounter Care Teams Pump House Engineer Relationship Specialty Start Date End Date Eric Dinh MD [address] [place] [phone] [email or web address] PCP - General Family Medicine 12/29/18 documented as of this encounter Additional Source Comments The information contained in this document represents components of the legal health record. It is not the complete legal health record.[facility]
--- OUTSIDE RECORDS SUMMARY | 2025-07-08 14:19 | XMS_ITS | Encounter Summary ---
Author Organization [facility] Address [address] [place] [address] [place] [address] Phone Care Team Providers Care Security Architect Name Role Phone Eric Dinh MD Primary Care Provider +1- [phone] Encounter Details Date Type Department Care Team (Late st Contact Info) Description 09/28/2023 Procedure Pass [facility], Ct Scan - [address] [address] Social History Tobacco Use Types Packs/Day Years [...] on filedocumented in this encounter Care Teams Security Architect Relationship Specialty Start Date End Date Eric Dinh MD [address] [place] [phone] [email or web address] PCP - General Family Medicine 12/29/18 documented as of this encounter Additional Source Comments The information contained in this document represents components of the legal health record. It is not the complete legal health record.[facility]
--- OUTSIDE RECORDS SUMMARY | 2025-07-08 14:19 | XMS_ITS | Encounter Summary ---
Author Organization [facility] Address [address] [place] [address] Phone Care Team Providers Care Scientist Electronics Name Role Phone Eric Dinh MD Primary Care Provider +1- [phone] Encounter Details Date Type Department Care Team (Late st Contact Info) Description 11/24/2023 Procedure Pass [facility], Ct Scan - [address] [address] Social History Tobacco Use Types Packs/Day Years [...] 11/24/2023 12:38 AM Priti Tinajero RN * [place] Suicide Severity Rating Scale (Screener/Recent Self-Report) Question [...] on filedocumented in this encounter Care Teams Scientist Electronics Relationship Specialty Start Date End Date Eric Dinh MD [address] [place] [phone] [email or web address] PCP - General Family Medicine 12/29/18 documented as of this encounter Additional Source Comments The information contained in this document represents components of the legal health record. It is not the complete legal health record.[facility]
--- OUTSIDE RECORDS SUMMARY | 2025-07-08 14:19 | XMS_ITS | Encounter Summary ---
Author Organization [facility] Address [address] [place] [address] Phone Care Team Providers Care Commercial Sales Specialist Name Role Phone Eric Dinh MD Primary Care Provider +1- [phone] Encounter Details Date Type Department Care Team (Late st Contact Info) Description 08/18/2019 Transcribe Orders Virtual Department [address] [place] [address] Eric Dinh MD [address] [place] [phone] [email or web address] Dyspnea on exertion (Primary Dx) Social [...] documented as of this encounter Care Teams Commercial Sales Specialist Relationship Specialty Start Date End Date Eric Dinh MD [address] [place] [phone] [email or web address] PCP - General Family Medicine 12/29/18 documented as of this encounter Additional Source Comments The information contained in this document represents components of the legal health record. It is not the complete legal health record.[facility]
--- OUTSIDE RECORDS SUMMARY | 2025-07-08 14:19 | XMS_ITS | Encounter Summary ---
Author Organization [facility] Address [address] [place] [address] [place] [address] Phone Care Team Providers Care Reinforcing Bar Setter Name Role Phone Eric Dinh MD Primary Care Provider +1- [phone] Encounter Details Date Type Department Care Team (Late st Contact Info) Description 04/10/2020 Procedure Pass [facility], Ct Scan - [address] [address] Social History Tobacco Use Types Packs/Day Years [...] documented as of this encounter Care Teams Reinforcing Bar Setter Relationship Specialty Start Date End Date Eric Dinh MD [address] [place] [phone] [email or web address] PCP - General Family Medicine 12/29/18 documented as of this encounter Additional Source Comments The information contained in this document represents components of the legal health record. It is not the complete legal health record.[facility]
--- OUTSIDE RECORDS SUMMARY | 2025-07-08 14:19 | XMS_ITS | Encounter Summary ---
Author Organization [facility] Address [address] [place] [address] [place] [address] Phone Care Team Providers Care Tin Stacker Name Role Phone Eric Dinh MD Primary Care Provider +1- [phone] Encounter Details Date Type Department Care Team (Late st Contact Info) Description 03/19/2019 Procedure Pass [facility] Admitting Dept Virtual Department [address] [place] [address] Social History Tobacco Use Types Packs/Day Years [...] documented as of this encounter Care Teams Tin Stacker Relationship Specialty Start Date End Date Eric Dinh MD [address] [place] [phone] [email or web address] PCP - General Family Medicine 12/29/18 documented as of this encounter Additional Source Comments The information contained in this document represents components of the legal health record. It is not the complete legal health record.[facility]
== END 2025-07-08 11:55 | disposition home or self-care (01) ==
LOC: HO.HUSH 11:11
PROVIDERS: PCP Family Medicine; Visit Provider Urology
DX: C67.1 Malignant neoplasm of dome of bladder (principal); C61 Malignant neoplasm of prostate; C79.51 Secondary malignant neoplasm of bone; Z19.2 Hormone resistant malignancy status; N39.0 Urinary tract infection, site not specified; N32.81 Overactive bladder; Z13.9 Encounter for screening, unspecified
CPT/HCPCS: 52000; 99213

== ENCOUNTER 2025-09-14 08:41 | Outpatient (REF) | payer OTHER, SELFPAY ==
--- OUTSIDE RECORDS SUMMARY | 2025-09-14 09:22 | XMS_ITS | Encounter Summary ---
Author Organization [facility] Address [address] [place] [address] Phone Care Team Providers Care Sawmill Worker Name Role Phone Eric Dinh MD Primary Care Provider +1- [phone] Encounter Details Date Type Department Care Team (Late st Contact Info) Description 11/24/2023 Procedure Pass [facility], Ct Scan - [address] [address] Social History Tobacco Use Types Packs/Day Years [...] 11/24/2023 12:38 AM Priti Tinajero RN * [place] Suicide Severity Rating Scale (Screener/Recent Self-Report) Question Answer Date of Assessment Author 1. Wish to be (Past 1 Month) No 024 12:38 AM Priti Chambers, ERNESTO 2. Non-Specific Active Suici duane Thoughts (Past 1 Month) No 11/24/2023 12:38 AM Maryam Chambers RN 6. Suicidal Behavior (Lifetime) No 4 12:38 AM Priti Chambers RN documented as of this encounter Plan of Treatment Not on file documented as of this encounter Visit Diagnoses Not on filedocumented in this encounter Care Teams Sawmill Worker Relationship Specialty Start Date End Date Eric Dinh MD [address] [place] [phone] [email or web address]) PCP - General Family Medicine 12/29/18 documented as of this encounter Additional Source Comments The information contained in this document represents components of the legal health record. It is not the complete legal health record.[facility]
--- OUTSIDE RECORDS SUMMARY | 2025-09-14 09:22 | XMS_ITS | Encounter Summary ---
Author Organization [facility] Address [address] [place] [address] Phone Care Team Providers Care Bioinformatics Computer Scientist Name Role Phone Eric Dinh MD Primary Care Provider +1- [phone] Encounter Details Date Type Department Care Team ([facility] st Contact Info) Description 08/01/2024 Procedure Pass [facility] Admitting Dept Virtual Department [address] [place] [address] Social History Tobacco Use Types Packs/Day Years [...] on filedocumented in this encounter Care Teams Bioinformatics Computer Scientist Relationship Specialty Start Date End Date Eric Dinh MD [address] [place] [phone] [email or web address] PCP - General Family Medicine 12/29/18 documented as of this encounter Additional Source Comments The information contained in this document represents components of the legal health record. It is not the complete legal health record.[facility]
--- OUTSIDE RECORDS SUMMARY | 2025-09-14 09:22 | XMS_ITS | Encounter Summary ---
Author Organization [facility] Address [address] [place] [address] Phone Care Team Providers Care Chief Projectionist Name Role Phone Eric Dinh MD Primary Care Provider +1- [phone] Encounter Details Date Type Department Care Team (Late st Contact Info) Description 11/24/2023 Procedure Pass [facility], Ct Scan - [address] [address] Social History Tobacco Use Types Packs/Day Years [...] 11/24/2023 12:38 AM Priti Tinajero RN * [place] Suicide Severity Rating Scale (Screener/Recent Self-Report) Question [...] on filedocumented in this encounter Care Teams Chief Projectionist Relationship Specialty Start Date End Date Eric Dinh MD [address] [place] [phone] [email or web address] PCP - General Family Medicine 12/29/18 documented as of this encounter Additional Source Comments The information contained in this document represents components of the legal health record. It is not the complete legal health record.[facility]
--- OUTSIDE RECORDS SUMMARY | 2025-09-14 09:22 | XMS_ITS | Clinical Summary ---
Author Organization [employer] [facility] Address [address] 7[address] [place] [address] Care Team Providers Care Truck Spotter Name Role Phone Unavailable Primary Care Provider Unavailabl e Allergies Active Allergy Reactions Criticality Noted Date Comments Oxycodone 05/14/2021 Primidone Diarrhea,Dizziness,Headache 10/07/20 19 Medications ibuprofen 600 MG tablet Take 1 tablet (600 mg) by mouth every 6 (six) hours if needed for mild pain for up to 20 doses. 20 tablet 4 Active Additional Information Patient not taking.Reported on 07/14/2025 riboflavin (Vitamin B-2) 100 MG tablet Take by mouth. A ctive Cholecalciferol (D3) 50 MCG (1999 UT) chewable tablet Chew. Acti ve magnesium citrate solution Take by mouth. Activ e aspirin 81 MG EC tablet Take 81 mg by mouth Once per day. Active FLUoxetine (PROzac) 20 MG capsule Take 20 mg by mouth Once per day. Active amLODIPine (Norvasc) 2.5 MG tablet Take by mouth Once per day. Active acetaminophen (Tylenol) 325 MG tablet Take 1 tablet (325 mg) by mouth every 6 (six) hours if needed for mild pain. 30 tablet 5 Active Active Problems Problem Noted Date Diagnosed Date Dental abscess 07/29/2025 Severe dental caries 07/14/2025 Chronic periodontitis 07/14/2025 Periodontal disease 08/28/2024 Odontalgia 08/28/2024 Fractured dental protestant with loss of materi al 08/28/2024 Encounters Date Type Department Care Team Description 07/29/2025 8:00 AM EDT Office Visit [facility] ADULT [facility] [address] [place], [place] [phone] Bolano, Fredis, DDS Dental abscess (Primary Dx) 07/28/2025 Telephone [facility] [address] [place] [address] Fredis Doe DDS comp appt 07/14/2025 11:30 AM EDT Office Visit [facility] [address] [place] [address] Fredis Doe DDS Odontalgia (Primary Dx); Severe dental caries; Chronic periodontitis from Last 3 Months Social History Tobacco [...] Sign Reading Time Taken Comments Blood Pressure 138/90 07/29/2025 8:20 AM EDT Pulse 104 07/29/2025 8:20 AM EDT Temperature - - Respiratory Rate - - Oxygen Saturation - - Inhaled Oxygen Concentration - - Weight - - Height - - Body Mass Index - - Plan of Treatment Upcoming Encounters Date Type Department Care Team (Late st Contact Info) Description 10/28/2025 9:30 AM EST Office Visit [facility] [address] [place] [address] Natalia Valdes [address] [place] [address] Health Maintenance Due Date Last Done Comments [...] Zoster Vaccines (1 of 2) 2002 02/08/2017 COVID-19 Vaccine ( - season) 2025 06/17/2024, 11/27/2023, 10/09/2021, Additional history exists Tobacco Screening 07/29/2026 07/29/2025 RSV Patients and Patients Aged 60 years or older (1 - 1-dose 75+ series) 2027 DTaP/Tdap/Td Vaccines (4 - Td or Tdap) 08/21/2034 08/21/2024, 01/06/2023, 07/29/2013, Additional history exists Pneumococcal Vaccine: 50+ Years Completed 06/21/2020, 11/11/2018 Influenza Vaccine Completed 07/15/2025, , 07/20/2023, Additional history exists HIB Vaccines Aged Out [...] PRESENTATION, DETAILED AND EXTENSIVE TREATMENT PLANNING Routine 07/29/2025 8:00 AM EDT 14 EXTRACTION, ERUPTED TOOTH OR EXPOSED ROOT (ELEVATION/FORCEPS REMOVAL) Routine 07/29/2025 8:00 AM EDT LIMITED ORAL EVALUATION - PROBLEM FOCUSED Routine 07/14/2025 11:30 AM EDT CASE PRESENTATION, DETAILED AND EXTENSIVE TREATMENT PLANNING Routine 07/14/2025 11:30 AM EDT INTRAORAL - PERIAPICAL FIRST RADIOGRAPHIC IMAGE Routine 07/14/2025 11:30 AM EDT from Last 3 Months Insurance [facility]
--- OUTSIDE RECORDS SUMMARY | 2025-09-14 09:22 | XMS_ITS | Encounter Summary ---
Author Organization [facility] Address [address] [place] [address] Phone Care Team Providers Care Dinkey Locomotive Operator Name Role Phone Eric Dinh MD Primary Care Provider +1- [phone] Encounter Details Date Type Department Care Team (Late st Contact Info) Description 11/05/2023 Procedure Pass [facility], Ct Scan - [address] [address] Social History Tobacco Use Types Packs/Day Years [...] 11/05/2023 9:47 AM Ernestine Almeida RN * [place] Suicide Severity Rating Scale (Screener/Recent Self-Report) Question Answer Date of Assessment Author 1. Wish to be (Past 1 Month) No 024 9:47 AM Ernestine Almeida RN 2. Non-Specific Active Suici duane Thoughts (Past 1 Month) No 11/05/2023 9:47 AM Ernestine Almeida RN 6. Suicidal Behavior (Lifetime) No 4 9:47 AM Ernestine Almeida RN documented as of this encounter Plan of Treatment Not on file documented as of this encounter Visit Diagnoses Not on filedocumented in this encounter Care Teams Dinkey Locomotive Operator Relationship Specialty Start Date End Date Eric Dinh MD [address] [place] [phone] PCP - General Family Medicine 12/29/18 documented as of this encounter Additional Source Comments The information contained in this document represents components of the legal health record. It is not the complete legal health record.[facility]
--- OUTSIDE RECORDS SUMMARY | 2025-09-14 09:22 | XMS_ITS | Encounter Summary ---
Author Organization [employer] Address [address] [facility] 7t [place] [address] Care Team Providers Care Airframe Technical Officer Name Role Phone Unavailable Primary Care Provider Unavailabl e Reason for Visit * Reason Onset Date Comments medication 08/29/2024 Encounter Details Date Type Department Care Team ([facility] st Contact Info) Description 08/29/[address] [facility] ADULT DENTAL [address] [place], [place] [phone] Fredis Doe DDS [address] [place], [place] [phone] medication Social History Tobacco Use Types Packs/Day [...] appt on 08/29. [facility] * Telephone Encounter - Sheridan Barbour - 08/29/2024 11:36 AM EST Message for Dr. Doe Patient called in reporting that medication antibiotic was not sent to pharmacy for patient yesterday. 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 ADULT D[facility]AL [address] [place], [place] [phone] Natalia Valdes [address] [place] [address] documented as of this encounter Visit Diagnoses Not on filedocumented in this encounter
--- OUTSIDE RECORDS SUMMARY | 2025-09-14 09:23 | XMS_ITS | Clinical Summary ---
Author Organization [facility] Address [address] [place] [address] [place] [address] Phone Care Team Providers Care Fashion Supervisor Name Role Phone Svetlana Woodruff MD Primary Care Provider +1- [phone] Allergies Active Allergy Reactions Criticality Noted Date [...] 10/07/2019 Transient cerebral ischemia 10/07/2019 Hypercholesteremia 10/07/2019 Encounters Date Type Department Care Team Description 08/31/2025 Transcribe Orders [facility] [address] [place] [address] Keke Marrufo PA Encounter for rehabilitation (Primary Dx) 08/20/2025 6:30 PM EST - 08/20/2025 9:36 PM EST Emergency [facility] [address] [place] [address] Lc Mendoza MD Discharge Disposition: Home or Self Care 08/20/2025 Procedure Pass [facility], Ct Scan - [facility] [address] [place] [address] 08/20/2025 Procedure Pass [facility], Ct Scan [facility] [address] [place] [address] from Last 3 Months Family History Medical History Relation Comments Leukemia [...] on file 02/09/2023 No 02/09/2023 No 02/09/2023 Food Answer Date Recorded Within the past 6 months we worried whether our food would run out before we got money to buy more. Never True 08/20/2025 Within the past 6 months the food we bought just didn't last and we didn't have enough money to get more. Never True Residential Stability Answer Date Recor ded What is your housing situation today? I have tejinder flores 08/20/2025 How many times have you move d in the past 12 months? Zero (I did not move) 08/20/2025 Paying for Meds Answer Date Recorded Do you have trouble paying for medicines? No 08/20/2025 Paying Utility Bills Answer Date Record ed Do you have trouble paying your heating or elect ricity bill? No 08/20/2025 Transportation Answer Date Recorded Has the lack of transportati on kept you from medical appointments or from getting medications? No 08/20/2025 Digital Access Answer Date Recorded No 08/20/2025 Yes 08/20/2025 Do you have reliable internet access at home? Ye s 08/20/2025 Do you have a device (e.g., phone, tablet, computer) with a working camera? Yes 08/20/2025 Intimate Partner Violence Answer Date R ecorded Are you denied basic needs s uch as food, clothing, or medical care? No 08/20/2025 In the past 12 months have y ou been in a relationship with a person who hurts, threatens, or tries to control you? No 08/20/2025 Are you denied basic needs s uch as food, clothing, or medical care? No 08/20/2025 In the past 12 months have y ou been in a relationship with a person who hurts, threatens, or tries to control you? No 08/20/2025 Sex and Gender Information Value Date Recorded Sex Assigned at Male 12/29/2018 6:34 PM EDT Legal Sex Male 9:59 PM EDT Gender Identity Male 12/29/2018 6:34 PM EDT Sexual Orientation Straight 12/29/2018 6: 34 PM EDT Last Filed Vital Signs Vital Sign Reading Time Taken Comments Blood Pressure 167/93 08/20/2025 8:52 PM EST Pulse 70 08/20/2025 8:52 PM EST Temperature 36.4 C (97.5 F) 08/20/2025 8:52 PM EST Respiratory Rate 18 08/20/2025 8:52 PM EST Oxygen Saturation 99% 08/20/2025 8:52 PM EST Inhaled Oxygen Concentration - - Weight 99.8 kg (220 lb) 08/20/2025 8:52 PM EST Height 185.4 cm (6' 1 ) 08/20/2025 8:52 PM EST Body Mass Index 29.03 08/20/2025 8:52 PM EST Plan of Treatment Health Maintenance Due Date Last Done Comments LIPID PANEL 1950 DEPRESSION SCREENING 1964 HEPATITIS C SCREENING 1970 ZOSTER VACCINES (1 of 2) 1971 02/08/2017 COLOGUARD 1997 FIT TEST 1997 FOBT 1997 SIGMOIDOSCOPY 1997 VIRTUAL COLONOSCOPY 1997 PNEUMOCOCCAL VACCINES (50+ years) (2 of 2 - PPSV23, PCV20, or PCV21) 01/06/2019 11/11/2018 BLOOD PRESSURE 07/26/2024 01/25/2024 INFLUENZA VACCINE (#1) 2025 4, 07/20/2023, 07/05/2022, Additional history exists COVID-19 VACCINE (2024- season) 2025 06/17/2024, 11/27/2023, 10/09/2021, Additional history exists RSV VACCINE (1 - 1-dose 75+ series) 2027 COLONOSCOPY 08/01/2034 08/01/2024 COLORECTAL CANCER SCREENING 08/01/2034 [...] Procedure Name Priority Date/Time Associated Diagnosis Comments CT CERVICAL SPINE WITHOUT CONTRAST Routine 08/20/2025 6:[address] HEAD WITHOUT CONTRAST Routine 08/20/2025 6:36 PM EST ENDOSCOPY, COLON 08/01/2024 2:24 PM EDT from Last 3 Months or Most Recently Relevant to Health Maintenance Results * CT CERVICAL SPINE WITHOUT CONTRAST (08/20/2025 6:36 PM EST) Anatomical Region Laterality Modality C-spine Computed Tomogra phy 08/20/2025 8:03 PM EST Impressions 08/20/2025 8:29 PM EST 1. No acute intracranial findings. 2. No acute fracture or traumatic malalignment of the cervical spine. Narrative 08/20/2025 8:[address] HEAD WITHOUT CONTRAST, CT CERVICAL SPINE WITHOUT CONTRAST Referring clinician's provided indication for this examination in Epic: * Head trauma, minor (Age >= 65y) TECHNIQUE: CTs of the head and cervical spine were performed without intravenous contrast using tailored dose modulation techniques. Images were reconstructed in the axial, coronal, and sagittal planes. COMPARISON: November 24, 2023 FINDINGS: HEAD: Brain Parenchyma: No midline shift, mass effect, parenchymal hemorrhage, or evidence of acute territorial infarct. Hypodensities in the periventricular white matter, likely a manifestation of chronic small vessel disease. Ventricular System and Extra-Axial Spaces: The ventricles and sulci are prominent. No extra-axial fluid collections. Basilar cisterns are patent. No hydrocephalus. Osseous and Extracranial Structures: No calvarial fracture or significant soft tissue hematoma. No significant paranasal sinus disease. No orbital abnormality. CERVICAL SPINE: Alignment and Vertebrae: No traumatic malalignment. Vertebral bodies and posterior elements are intact. Discs and Endplates: Multilevel degenerative changes. Other Findings: None. Procedure Note Marcela Goodwin MD - 08/20/2025 CT HEAD WITHOUT CONTRAST, CT CERVICAL SPINE WITHOUT CONTRAST Referring clinician's provided indication for this examination in Epic: *Head trauma, minor (Age >= 65y) TECHNIQUE: CTs of the head and cervical spine were performed withoutintravenous contrast using tailored dose modulation techniques. Imageswere reconstructed in the axial, coronal, and sagittal planes. COMPARISON: November 24, 2023 FINDINGS: HEAD: Brain Parenchyma: No midline shift, mass effect, parenchymal hemorrhage,or evidence of acute territorial infarct. Hypodensities in theperiventricular white matter, likely a manifestation of chronic smallvessel disease. Ventricular System and Extra-Axial Spaces: The ventricles and sulci areprominent. No extra-axial fluid collections. Basilar cisterns are patent.No hydrocephalus. Osseous and Extracranial Structures: No calvarial fracture or significantsoft tissue hematoma. No significant paranasal sinus disease. No orbitalabnormality. CERVICAL SPINE: Alignment and Vertebrae: No traumatic malalignment. Vertebral bodies andposterior elements are intact. Discs and Endplates: Multilevel degenerative changes. Other Findings: None. IMPRESSION: 1. No acute intracranial findings. 2. No acute fracture or traumatic malalignment of the cervical spine. us Lc Mendoza MD IMG CT XSPECIALTY ORDERABLE S Final Result * CT HEAD WITHOUT CONTRAST (08/20/2025 6:36 PM EST) Anatomical Region Laterality Modality Head Computed Tomogra phy 08/20/2025 8:03 PM EST Impressions 08/20/2025 8:29 PM EST 1. No acute intracranial findings. 2. No acute fracture or traumatic malalignment of the cervical spine. Narrative 08/20/2025 8:[address] HEAD WITHOUT CONTRAST, CT CERVICAL SPINE WITHOUT CONTRAST Referring clinician's provided indication for this examination in [facility]: * Head trauma, minor (Age >= 65y) TECHNIQUE: CTs of the head and cervical spine were performed without intravenous contrast using tailored dose modulation techniques. Images were reconstructed in the axial, coronal, and sagittal planes. COMPARISON: November 24, 2023 FINDINGS: HEAD: Brain Parenchyma: No midline shift, mass effect, parenchymal hemorrhage, or evidence of acute territorial infarct. Hypodensities in the periventricular white matter, likely a manifestation of chronic small vessel disease. Ventricular System and Extra-Axial Spaces: The ventricles and sulci are prominent. No extra-axial fluid collections. Basilar cisterns are patent. No hydrocephalus. Osseous and Extracranial Structures: No calvarial fracture or significant soft tissue hematoma. No significant paranasal sinus disease. No orbital abnormality. CERVICAL SPINE: Alignment and Vertebrae: No traumatic malalignment. Vertebral bodies and posterior elements are intact. Discs and Endplates: Multilevel degenerative changes. Other Findings: None. Procedure Note Marcela Goodwin MD - 08/20/2025 CT HEAD WITHOUT CONTRAST, CT CERVICAL SPINE WITHOUT CONTRAST Referring clinician's provided indication for this examination in [facility]: *Head trauma, minor (Age >= 65y) TECHNIQUE: CTs of the head and cervical spine were performed withoutintravenous contrast using tailored dose modulation techniques. Imageswere reconstructed in the axial, coronal, and sagittal planes. COMPARISON: November 24, 2023 FINDINGS: HEAD: Brain Parenchyma: No midline shift, mass effect, parenchymal hemorrhage,or evidence of acute territorial infarct. Hypodensities in theperiventricular white matter, likely a manifestation of chronic smallvessel disease. Ventricular System and Extra-Axial Spaces: The ventricles and sulci areprominent. No extra-axial fluid collections. Basilar cisterns are patent.No hydrocephalus. Osseous and Extracranial Structures: No calvarial fracture or significantsoft tissue hematoma. No significant paranasal sinus disease. No orbitalabnormality. CERVICAL SPINE: Alignment and Vertebrae: No traumatic malalignment. Vertebral bodies andposterior elements are intact. Discs and Endplates: Multilevel degenerative changes. Other Findings: None. IMPRESSION: 1. No acute intracranial findings. 2. No acute fracture or traumatic malalignment of the cervical spine. us Lc Mendoza MD IMG CT HEAD/NECK Final Resu lt * ENDOSCOPY, COLON (08/01/2024 2:24 PM EDT) Narrative Transcriptions Daina Tenorio MD - 08/01/2024 2:24 PM EDT [facility] Patient Name: Kody Tinajero Attending MD:: DAINA TENORIO MD, Procedure Date: 08/01/2024 2:24 PM Date of : 1950 Age: 73 Admit Type: Outpatient Gender: Male Room: [place] [address] Referring MD: SVETLANA WOODRUFF MD Exam Type: [...] monitored continuously. The Olympus adult variable colonoscope [id number] #7 was introduced through the anus and [...] 2:24 PM Procedure Code(s): --- Professional --- 86492, Colonoscopy, flexible; diagnostic, including collection of specimen(s) by brushing or washing, when performed (separateprocedure) --- Technical --- 23908, Colonoscopy, flexible; diagnostic, including collection of specimen(s) [...] or abscess without bleeding CPT copyright 2021 [employer]. All rights reserved. The codes documented in this report are preliminary and upon switchman supervisor reviewmay be revised to meet current compliance requirements. Procedure Date: 08/01/2024 2:24:[address] [place] [address] [id number] Svetlana Woodruff MD GI PROCEDURE ORDERABLES Fin al Result from Last 3 Months or Most Recently Relevant to Health Maintenance Insurance MEDICARE REPLACEMENT [place] [address] [place] [address] MEDICARE REPLACEMENT MEDICARE REPLACEMENT MEDICARE REPLACEMENT MEDICARE REPLACEMENT MEDICARE REPLACEMENT MEDICARE REPLACEMENT MEDICARE REPLACEMENT [employer] MEDICARE REPLACEMENT Care Teams Fashion Supervisor Relationship Specialty Start Date End Date Svetlana Woodruff MD [address] [place] [phone] [email or web address] PCP - General Family Medicine 12/29/18 Additional Source Comments The information contained in this document represents components of the legal health record. It is not the complete legal health record.[facility]
--- OUTSIDE RECORDS SUMMARY | 2025-09-14 09:23 | XMS_ITS | Encounter Summary ---
Author Organization [facility] Address [address] [place] [address] [place] [address] Phone Care Team Providers Care Fiberglass Container Winding Operator Name Role Phone Eric Dinh MD Primary Care Provider +1- [phone] Encounter Details Date Type Department Care Team (Late st Contact Info) Description 07/16/2019 Procedure Pass [facility] Endoscopy Admitting Dept Virtual Department [address] [place] [address] Social History Tobacco Use Types Packs/Day Years [...] documented as of this encounter Care Teams Fiberglass Container Winding Operator Relationship Specialty Start Date End Date Eric Dinh MD [address] [place] [phone] [email or web address] PCP - General Family Medicine 12/29/18 documented as of this encounter Additional Source Comments The information contained in this document represents components of the legal health record. It is not the complete legal health record.[facility]
--- OUTSIDE RECORDS SUMMARY | 2025-09-14 09:23 | XMS_ITS | Encounter Summary ---
Author Organization [facility] Address [address] [place] [address] Phone Care Team Providers Care Geothermal Technician Name Role Phone Eric Dinh MD Primary Care Provider [phone]- [phone] Encounter Details Date Type Department Care Team (Late st Contact Info) Description 06/23/2023 Procedure Pass [facility], Ct Scan - [address] [address] Social History Tobacco Use Types Packs/Day Years [...] 11:42 AM EDT Pooja Aceves RN * [employer] Suicide Severity Rating Scale (Screener/Recent Self-Report) Question Answer Date of Assessment Author 1. Wish to be (Past 1 Month) No 023 11:42 AM EDT Pooja Khan, ERNESTO 2. Non-Specific Active Suici duane Thoughts (Past 1 Month) No 06/25/2023 11:42 AM EDT Konstantin Khan RN 6. Suicidal Behavior (Lifetime) No 11:42 AM EDT Pooja Khan, ERNESTO documented as of this encounter Plan of Treatment Not on file documented as of this encounter Visit Diagnoses Not on filedocumented in this encounter Additional Health Concerns Infection Onset Date Last Indicated Resolved Time CoV-Risk 06/29/2023 06/29/2023 07/10/2023 1:22 AM EDT documented as of this encounter Care Teams Geothermal Technician Relationship Specialty Start Date End Date Eric Dinh MD [address] [place] [phone] [email or web address] PCP - General Family Medicine 12/29/18 documented as of this encounter Additional Source Comments The information contained in this document represents components of the legal health record. It is not the complete legal health record.[facility]
--- OUTSIDE RECORDS SUMMARY | 2025-09-14 09:23 | XMS_ITS | Encounter Summary ---
Author Organization [facility] Address [address] [place] [address] [place] [address] Phone Care Team Providers Care Dock Associate Name Role Phone Eric Dinh MD Primary Care Provider [phone] [phone] Encounter Details Date Type Department Care Team (Late st Contact Info) Description 07/31/2023 Procedure Pass [facility], [address] [address] Social History Tobacco Use Types Packs/Day Years [...] on filedocumented in this encounter Care Teams Dock Associate Relationship Specialty Start Date End Date Eric Dinh MD [address] [place] [address] [place] [phone] [email or web address] PCP - General Family Medicine 12/29/18 documented as of this encounter Additional Source Comments The information contained in this document represents components of the legal health record. It is not the complete legal health record.[facility]
--- OUTSIDE RECORDS SUMMARY | 2025-09-14 09:23 | XMS_ITS | Encounter Summary ---
Author Organization [facility] Address [address] [facility] [address] [place] [address] Phone Care Team Providers Care Supply Chain Director Name Role Phone Eric Dinh MD Primary Care Provider +1- [phone] Encounter Details Date Type Department Care Team (Late st Contact Info) Description 09/28/2023 Procedure Pass [facility], Ct Scan - [address] [address] Social History Tobacco Use Types Packs/Day Years [...] on filedocumented in this encounter Care Teams Supply Chain Director Relationship Specialty Start Date End Date Eric Dinh MD [address] [place] [phone] [email or web address] PCP - General Family Medicine 12/29/18 documented as of this encounter Additional Source Comments The information contained in this document represents components of the legal health record. It is not the complete legal health record.[facility]
--- OUTSIDE RECORDS SUMMARY | 2025-09-14 09:23 | XMS_ITS | Encounter Summary ---
Author Organization [facility] Address [address] [facility] [address] [place] [address] Phone Care Team Providers Care Cement Finishing Supervisor Name Role Phone Eric Dinh MD Primary Care Provider +1- [phone] Encounter Details Date Type Department Care Team (Late st Contact Info) Description 09/28/2023 Procedure Pass [facility], Ct Scan - [address] [address] Social History Tobacco Use Types Packs/Day Years [...] on filedocumented in this encounter Care Teams Cement Finishing Supervisor Relationship Specialty Start Date End Date Eric Dinh MD [address] [place] [phone] [email or web address] PCP - General Family Medicine 12/29/18 documented as of this encounter Additional Source Comments The information contained in this document represents components of the legal health record. It is not the complete legal health record.[facility]
--- OUTSIDE RECORDS SUMMARY | 2025-09-14 09:23 | XMS_ITS | Encounter Summary ---
Author Organization [facility] Address [address] [place] [address] [place] [address] Phone Care Team Providers Care Element Burner Name Role Phone Eric Dinh MD Primary Care Provider +1- [phone] Encounter Details Date Type Department Care Team (Late st Contact Info) Description 03/03/2020 Procedure Pass [facility] Endoscopy Admitting Dept Virtual Department [address] [place] [address] Social History Tobacco Use Types Packs/Day Years [...] documented as of this encounter Care Teams Element Burner Relationship Specialty Start Date End Date Eric Dinh MD [address] [place] [phone] [email or web address] PCP - General Family Medicine 12/29/18 documented as of this encounter Additional Source Comments The information contained in this document represents components of the legal health record. It is not the complete legal health record.[facility]
--- OUTSIDE RECORDS SUMMARY | 2025-09-14 09:23 | XMS_ITS | Encounter Summary ---
Author Organization [facility] Address [address] [place] [address] [place] [address] Phone Care Team Providers Care Medical Claims Specialist Name Role Phone Eric Dinh MD Primary Care Provider [phone] Reason for Referral * MRI/CAT Scan - Closed Specialty Diagnoses / Procedures Referred By Contac t Referred To Contact Radiology Diagnoses Migraine without status migrainosus, not intractable, unspecified migraine type Blurred vision Procedures MRI Brain CHG MRI BRAIN COMBO Eric Dinh MD [address] [place] [address] Phone: tel: fax: mailto:[email or web address] Referral ID Status Reason Start Date Expiration Date Visits Re quested Visits Authorized [id number] Closed 07/22/2023 11/19/2023 1 1 Encounter Details Date Type Department Care Team (Late st Contact Info) Description 07/31/2023 Transcribe Orders Virtual Department [address] [place] [address] Eric Dinh MD [address] [place], [place] [phone] [email or web address] Migraine without status migrainosus, not intractable, unspecified [...] clinician's provided indication for this examination in [facility]: Outside Radiology Order; migraine TECHNIQUE: MRI BRAIN [...] clinician's provided indication for this examination in Epic:Outside Radiology Order; migraine TECHNIQUE: MRI BRAIN WITH [...] disturbances documented in this encounter Care Teams Medical Claims Specialist Relationship Specialty Start Date End Date Eric Dinh MD [address] [place] [phone] [email or web address] PCP - General Family Medicine 12/29/18 documented as of this encounter Additional Source Comments The information contained in this document represents components of the legal health record. It is not the complete legal health record.[facility]
--- OUTSIDE RECORDS SUMMARY | 2025-09-14 09:23 | XMS_ITS | Encounter Summary ---
Author Organization [facility] Address [address] [place] [address] [place] [address] Phone Care Team Providers Care Electrician Telephone Name Role Phone Eric Dinh MD Primary Care Provider +1- [phone] Encounter Details Date Type Department Care Team (Late st Contact Info) Description 04/10/2020 Procedure Pass [facility], Ct Scan - [address] [address] Social History Tobacco Use Types Packs/Day Years [...] documented as of this encounter Care Teams Electrician Telephone Relationship Specialty Start Date End Date Eric Dinh MD [address] [place] [phone] [email or web address] PCP - General Family Medicine 12/29/18 documented as of this encounter Additional Source Comments The information contained in this document represents components of the legal health record. It is not the complete legal health record.[facility]
--- OUTSIDE RECORDS SUMMARY | 2025-09-14 09:23 | XMS_ITS | Encounter Summary ---
Author Organization [facility] Address [address] [place] [address] [place] [address] Phone Care Team Providers Care Polytechnic Registrar Name Role Phone Eric Dinh MD Primary Care Provider +1- [phone] Encounter Details Date Type Department Care Team (Late st Contact Info) Description 03/19/2019 Procedure Pass [facility] Endoscopy Admitting Dept Virtual Department [address] [place] [address] Social History Tobacco Use Types Packs/Day Years [...] documented as of this encounter Care Teams Polytechnic Registrar Relationship Specialty Start Date End Date Eric Dinh MD [address] [place] [phone] [email or web address] PCP - General Family Medicine 12/29/18 documented as of this encounter Additional Source Comments The information contained in this document represents components of the legal health record. It is not the complete legal health record.[facility]
--- OUTSIDE RECORDS SUMMARY | 2025-09-14 09:23 | XMS_ITS | Encounter Summary ---
Author Organization [facility] Address [address] [facility] [address] [place] [address] Phone Care Team Providers Care It Generalist Name Role Phone Eric Dinh MD Primary Care Provider +1- [phone] Encounter Details Date Type Department Care Team (Late st Contact Info) Description 08/18/2019 Transcribe Orders Virtual Department [address] [place] [address] Eric Dinh MD [address] [place] [address] [email or web address] Dyspnea on exertion (Primary Dx) Social History [...] documented as of this encounter Care Teams It Generalist Relationship Specialty Start Date End Date Eric Dinh MD [address] [place] [phone] [email or web address] PCP - General Family Medicine 12/29/18 documented as of this encounter Additional Source Comments The information contained in this document represents components of the legal health record. It is not the complete legal health record.[facility]
--- OUTSIDE RECORDS SUMMARY | 2025-09-14 09:23 | XMS_ITS | Encounter Summary ---
Author Organization [employer] Address [address] [place] [address] 7[address] [place] [address] Care Team Providers Care Ladle Mechanic Name Role Phone Unavailable Primary Care Provider Unavailabl e Reason for Visit * Reason Onset Date Comments comp appt 07/28/2025 Encounter Details Date Type Department Care Team ([facility] st Contact Info) Description 07/28/2025 Telephone [facility] ADULT DENTAL [address] [place], [place] [phone] Fredis Doe DDS [address] [place], [place] [phone] comp appt Social History Tobacco Use Types Packs/Day Years [...] * Telephone Encounter - Sheridan Barbour - 08/03/2025 10:18 AM EDT Patient was seen for extraction and states that are looking to be scheduled for comp appointment that provider stated patient needed. No active request for comp visit DR * Telephone Encounter - Sheridan Barbour - 07/28/2025 3:14 PM EDT Message for Dr. Doe Patient has not felt any relief with antibiotics that were scripted. They are looking for somethingelse for pain and antibiotic be sent to the pharmacy to hold him over until his appointment on 08/12 documented in this encounter Plan of Treatment Upcoming Encounters Date Type Department Care Team ([facility] Contact Info) Description 10/28/2025 9:30 AM EST Office Visit [facility] ADULT DENTAL [address] [place] [address] Natalia Valdes [address] [place] [address] documented as of this encounter Visit Diagnoses Not on filedocumented in this encounter
--- OUTSIDE RECORDS SUMMARY | 2025-09-14 09:24 | XMS_ITS | Encounter Summary ---
Author Organization [facility] Address [address] [facility] [address] [place] [address] Phone Care Team Providers Care Self Propelled Mining Machine Operator Name Role Phone Eric Dinh MD Primary Care Provider [phone]- [phone] Encounter Details Date Type Department Care Team (Late st Contact Info) Description 10/08/2023 Procedure Pass [facility], Ct Scan - [address] [address] Social History Tobacco Use Types Packs/Day Years [...] on filedocumented in this encounter Care Teams Self Propelled Mining Machine Operator Relationship Specialty Start Date End Date Eric Dinh MD [address] [place] [address] [email or web address] PCP - General Family Medicine 12/29/18 documented as of this encounter Additional Source Comments The information contained in this document represents components of the legal health record. It is not the complete legal health record.[facility]
--- OUTSIDE RECORDS SUMMARY | 2025-09-14 09:24 | XMS_ITS | Encounter Summary ---
Author Organization [facility] Address [address] [facility] [address] [place] [address] Phone Care Team Providers Care Manufacturing Engineering Director Name Role Phone Eric Dinh MD Primary Care Provider +1- [phone] Encounter Details Date Type Department Care Team (Late st Contact Info) Description 10/08/2023 Procedure Pass [facility], Ct Scan - [address] [address] Social History Tobacco Use Types Packs/Day Years [...] on filedocumented in this encounter Care Teams Manufacturing Engineering Director Relationship Specialty Start Date End Date Eric Dinh MD [address] [place] [address] [email or web address] PCP - General Family Medicine 12/29/18 documented as of this encounter Additional Source Comments The information contained in this document represents components of the legal health record. It is not the complete legal health record.[facility]
--- OUTSIDE RECORDS SUMMARY | 2025-09-14 09:25 | XMS_ITS | Encounter Summary ---
Author Organization [facility] Address [address] [facility] [address] [place] [address] Phone Care Team Providers Care Scout Sniper Name Role Phone Eric Dinh MD Primary Care Provider [phone] [phone] Encounter Details Date Type Department Care Team (Late st Contact Info) Description 08/20/2025 Procedure Pass [facility], Ct Scan - [address] [address] Social History Tobacco Use Types Packs/Day Years [...] your housing situation today? I have tejinder sing 08/20/2025 How many times have you move [...] Date of Assessment Author No Risk Indicated 08/20/2025 6:52 PM Ld Thompson RN * [place] Suicide Severity Rating Scale (Screener/Recent Self-Report) Question Answer Date of Assessment Author 1. Wish to be (Past 1 Month) No 025 6:52 PM Ld Thompson RN 2. Non-Specific Active Suici duane Thoughts (Past 1 Month) No 08/20/2025 6:52 PM Jerrica Thompson RN 6. Suicidal Behavior (Lifetime) No 6:52 PM EST [place], Ld, RN documented as of this encounter Plan of Treatment Not on file documented as of this encounter Visit Diagnoses Not on filedocumented in this encounter Care Teams Scout Sniper Relationship Specialty Start Date End Date Eric Dinh MD [address] [place] [phone] [email or web address] PCP - General Family Medicine 12/29/18 documented as of this encounter Additional Source Comments The information contained in this document represents components of the legal health record. It is not the complete legal health record.[facility]
--- OUTSIDE RECORDS SUMMARY | 2025-09-14 09:25 | XMS_ITS | Encounter Summary ---
Author Organization [facility] Address [address] [place] [address] [place] [address] Phone Care Team Providers Care Retail Advertising Executive Name Role Phone Eric Dinh MD Primary Care Provider +1- [phone] Encounter Details Date Type Department Care Team (Late st Contact Info) Description 08/04/2020 Procedure Pass [facility] [place] [address] Social History Tobacco Use Types Packs/Day Years [...] 6:34 PM EDT Sexual Orientation Straight 12/29/2018 6 :34 PM EDT documented as of this encounter Plan of Treatment Not on file documented as of this encounter Visit Diagnoses Not on filedocumented in this encounter Additional Health Concerns Infection Onset Date Last Indicated Resolved Time CoV-Risk 06/29/2023 06/29/2023 07/10/2023 1:22 AM EDT documented as of this encounter Care Teams Retail Advertising Executive Relationship Specialty Start Date End Date Eric Dinh MD [address] [place] [phone] [email or web address] PCP - General Family Medicine 12/29/18 documented as of this encounter Additional Source Comments The information contained in this document represents components of the legal health record. It is not the complete legal health record.[facility]
--- OUTSIDE RECORDS SUMMARY | 2025-09-14 09:25 | XMS_ITS | Encounter Summary ---
Author Organization [facility] Address [address] [facility] [address] [place] [address] Phone Care Team Providers Care Septic Tank Cleaner Name Role Phone Eric Dinh MD Primary Care Provider [phone] [phone] Encounter Details Date Type Department Care Team (Late st Contact Info) Description 08/20/2025 Procedure Pass [facility], Ct Scan - [address] [address] Social History Tobacco Use Types Packs/Day Years [...] you interested in more education? Not on eflipe e 02/09/2023 Are you concerned about learning? [...] 08/20/2025 6:52 PM Ld Thompson RN * [place] Suicide Severity Rating Scale (Screener/Recent Self-Report) Question Answer Date of Assessment Author 1. Wish to be (Past 1 Month) No 025 6:52 PM Ld Thompson RN 2. Non-Specific Active Suici duane Thoughts (Past 1 Month) No 08/20/2025 6:52 PM Jerrica Thompson RN 6. Suicidal Behavior (Lifetime) No 6:52 PM EST [place], Ld, RN documented as of this encounter Plan of Treatment Not on file documented as of this encounter Visit Diagnoses Not on filedocumented in this encounter Care Teams Septic Tank Cleaner Relationship Specialty Start Date End Date Eric Dinh MD [address] [place] [phone] [email or web address] PCP - General Family Medicine 12/29/18 documented as of this encounter Additional Source Comments The information contained in this document represents components of the legal health record. It is not the complete legal health record.[facility]
--- OUTSIDE RECORDS SUMMARY | 2025-09-14 09:25 | XMS_ITS | Encounter Summary ---
Author Organization [facility] Address [address] [facility] [address] [place] [address] Phone Care Team Providers Care Diesel Electrician Name Role Phone Eric Dinh MD Primary Care Provider [phone]- [phone] Encounter Details Date Type Department Care Team (Late st Contact Info) Description 10/08/2023 Procedure Pass [facility], Ct Scan - [address] [address] Social History Tobacco Use Types Packs/Day Years [...] on filedocumented in this encounter Care Teams Diesel Electrician Relationship Specialty Start Date End Date Eric Dinh MD [address] [place] [phone] [email or web address] PCP - General Family Medicine 12/29/18 documented as of this encounter Additional Source Comments The information contained in this document represents components of the legal health record. It is not the complete legal health record.[facility]
[2025-09-14 10:42] LABS: Prostate Specific Antigen 3.58 ng/mL (<0.05-4.0)
== END 2025-09-14 08:42 | disposition home or self-care (01) ==
LOC: HO.LAB 08:41
PROVIDERS: PCP Family Medicine; Visit Provider Urology
DX: C61 Malignant neoplasm of prostate (principal); Z12.5 Encounter for screening for malignant neoplasm of prostate; Z19.2 Hormone resistant malignancy status
CPT/HCPCS: 36415; 84153; 84403

== ENCOUNTER 2025-10-02 09:43 | Outpatient (AMB) | payer OTHER, SELFPAY ==
--- NOTE | 2025-10-02 09:50 | MHC.OFFVIS ---
Intake Visit Reasons: 3M PSA/Testosterone/UA(set) Intake Note: Reason for Visit: PSA/Testosterone/UA Follow Up Urology Meds: Tolterodine, Apalutamide, Tamsulosin Blood Thinners: Aspirin Labs: PSA: 3.58 Testosterone: 7 (09/14/2025) Last Cytology: 07/09/2025 Imaging: None Last PVR: None Vessel Master Required: No Accompanied by: Daughter Allergies oxycodone (Percocet) Adverse Reaction (Intermediate, Verified 10/02/25 09:55) face got really red HPI Comments Details: Kody is a very pleasant male. He is a patient of Dr. Acosta. 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 Cystoscopy normal 04/08 PET-CT question small area avidity bladder apex may represent small metastatic node but otherwise clear - PSA 3.6, testosterone 2 01/06 2.4 T 5, [facility], cystoscopy - small superficial lesion 09/07 PSA 2.9 T 4 - Cysto - negative 07/08 GnRH (plan for 3 injections) 06/07 PSA 14 T 75 - DEXA scan osteopenia 03/07 PSA 1.9 T 23 Prolia injection - Bone Scan - no evidence of active metastatic disease Cystoscopy normal - Trial of OAB medication tolterodine 12/08 PSA 0.86 T <3 08/06 - PSA 0.65 T low Bone Scan - A few additional Mild nonspecific abnormalities are noted as described above and these are all likely arthritic or traumatic in etiology. None of these abnormalities is strongly suspicious for metastatic disease Remains on GnRH as single therapy 07/07 CT with question of residual prostate activity - may benefit from PSMA scan 05/06 - PSA 0.5 T<1 PSA low Prolia and GnRH agonist today Three month follow-up labs with bone scan Has been on combined therapy for 3 years Prostate cancer 12/30 initial treatment XRT with rising PSA and a bone scan lesion 01/04 PSA 0.4 T <1 - continue oral antiandrogen. Bone scan normal. Abdominal CT scan normal. 10/05 Abiraterone 2 tab daily - GnRH administered 05/05 abiraterone 2 tabs daily since seizure 04/05 GnRH with abiraterone - reduced to 3 tabs daily Prostate cancer metastatic Biopsy 12/30 - multicore Ty 8, PSA 96 Initial treatment EXBRT 11/03 Metastatic treatment combination GnRH injections with oral antiantigen PSA 09/03 0.2, 03/04 PSA 0.23, 07/05 0.2 T 9, 01/03 P 0.4 T 122, 04/05 0.3, 07/06 0.3, 10/05 0.6 T 3, 04/06 0.5 T <1 Imaging 11/03 bone scan with evidence of metastatic disease to the ribs and iliac crest - 11/[address] no evidence of bony metastases - 03/04 bone scan shows improvement, density shows osteopenia - 12/06 Bone Scan with improvement on iliac crest - 06/05 Bone Density - osteopenia - on calcium supplementation - 07/06 bone scan with minimal evidence of bony metastases Bladder cancer recurrent low-grade 12/2020, 06/05, 05/06 Initial diagnosis July 2018 low-grade superficial Cystoscopy Aug 2020 small superficial recurrence, 04/04 NAD, 08/04 NAD, 09/06 Cytology 04/05 NAD, 09/06 NAD Intervention - December 2020 TURBT 2 cm with satellite lesions, 06/05 multiple small lesions removed (small preperitoneal bladder perf) - 04/06 urinary papilloma Pathology - December 2020 low-grade bladder cancer, 06/05 low-grade superficial - 04/06 Inflammatory Adjuvant therapy - January 2021 6 week gemcitabine induction, 08/04 3 weeks gemcitabine 06/05 6 week reinduction gemcitabine PFS Medical History Gait disorder Vascular dementia Cervical spondylarthritis Cerebral microvascular disease Chronic migraine without aura, intractable, without status migrainosus Pulmonary emboli Hx of migraines CKD (chronic kidney disease), stage III Dizziness Malignant tumor of prostate (05/16/21) Hyperlipidemia (05/16/21) Essential hypertension (05/16/21) Complex partial seizure disorder Seizure disorder Tremor Cerebral microvascular disease Bone cancer Bladder cancer Bladder tumor Prostate CA Hematuria Elevated cholesterol HTN (hypertension) Surgical History Hx of colonoscopy History of cystoscopy H/O prostate biopsy Social History Household Members: Spouse Housing: House Are you a primary urgent care nurse practitioner to a significant other at home: No Do you presently have visiting nurse or other home services: No Alcohol intake: never Comment: no count Patient Tobacco Use Status: Never used Tobacco Second Hand Smoke Exposure: No Advance Directives Date on File: 05/22/22 service: No Current occupational status: retired Review of Systems Const Denies chills and Denies fever(s) Card Reports no additional complaints and Denies syncope Resp Denies cough GI Denies abdominal pain and Denies heartburn Reports as per HPI and Denies change in libido Neuro Denies syncope Psych Denies change in libido Endo Denies change in libido Physical Exam Const General: cooperative, healthy appearing, comfortable and no acute distress Orientation/consciousness: patient oriented x3 HEENT Face and sinus: Yes normal facial exam Mouth: moist mucous membranes Neck Neck: Yes normal visual inspection, Yes full ROM and Yes trachea midline Chest Chest palpation & inspection: normal inspection of the chest Resp Effort & Inspection: normal respiratory effort, able to speak in complete sentences and no respiratory distress GI Inspection: Yes normal to inspection Back/Spine/Pelvis Cervical Spine: normal cervical lordosis Thoracic/Lumbar Spine: thoracic and lumbar spine normal to inspection Skin General skin exam: no rashes or lesions noted Neuro General: patient oriented x3, gait normal, tone normal and moves all extremities Extrem General: Yes normal to inspection and Yes capillary refill normal Results AMB Urinalysis, Automated UA Leukoctes 0 Jeff/uL Last Edit by CORKY Xavier on 10/02/25 10:05 UA Nitrite Negative Last Edit by CORKY Xavier on 10/02/25 10:05 UA Urobilinogen 0.2 mg/dL Last Edit by CORKY Xavier on 10/02/25 10:05 UA Protein 15 mg/dL Last Edit by CORKY Xavier on 10/02/25 10:05 UA pH 5.5 Last Edit by CORKY Xavier on 10/02/25 10:05 UA Blood 0 Phi/uL Last Edit by CORKY Xavier on 10/02/25 10:05 UA Specific [place] 1.020 Last Edit by CORKY Xavier on 10/02/25 10:05 UA Ketone Negative Last Edit by STEVE XavierA on 10/02/25 10:05 UA Bilirubin 0 mg/dL Last Edit by CORKY Xavier on 10/02/25 10:05 UA Glucose 0 mg/dL Last Edit by CORKY Xavier on 10/02/25 10:05 Results Reviewed Results Reviewed: Laboratory Last Values Urine pH (Auto) 5.5 10/02/25 09:55 Specific [place] (Auto) 1.020 10/02/25 09:55 Urine Protein (Auto) 15 mg/dL 10/02/25 09:55 Glucose (UA)(Auto) 0 mg/dL 10/02/25 09:55 Urine Ketones (Auto) Negative 10/02/25 09:55 Urine Blood (Auto) 0 Phi/uL 10/02/25 09:55 Urine Nitrite (Auto) Negative 10/02/25 09:55 Urine Bilirubin (Auto) 0 mg/dL 10/02/25 09:55 Urine Urobilinogen (Auto) 0.2 mg/dL 10/02/25 09:55 Leukocyte Esterase (Auto) 0 Jeff/uL 10/02/25 09:55 Assessment & Plan Assessment & Plan (1) Prostate cancer metastatic to bone: Code(s): C61 - Malignant neoplasm of prostate; C79.51 - Secondary malignant neoplasm of bone Category: Medical (2) Bladder cancer: Comment: Recurrent low-grade multifocal - 06/05 Code(s): C67.9 - Malignant neoplasm of bladder, unspecified Category: Medical Qualifiers: Bladder location: dome Qualified Code(s): C67.1 - Malignant neoplasm of dome of bladder (3) Overactive bladder: Code(s): N32.81 - Overactive bladder Category: Medical Plan Three-month follow-up check cysto and lab Orders: Orders AMB Urinalysis Automated Today Z13.9 - Encounter for screening, unspecified Prostate Specific Antigen 3 Months C61 - Malignant neoplasm of prostate, Z19.2 - Hormone resistant malignancy status Urine Cytology Today C67.1 - Malignant neoplasm of dome of bladder Testosterone, Total 3 Months C61 - Malignant neoplasm of prostate, Z19.2 - Hormone resistant malignancy status Medications: Changed From tamsulosin 0.4 mg PO BID C61 - Malignant neoplasm of prostate, Z19.2 - Hormone resistant malignancy status To tamsulosin 0.4 mg PO BID 180 caps 1RF 90 days C61 - Malignant neoplasm of prostate, Z19.2 - Hormone resistant malignancy status From tolterodine ER 2 mg PO DAILY 30 days 30 caps 1RF C61 - Malignant neoplasm of prostate, C79.51 - Secondary malignant neoplasm of bone, R39.15 - Urgency of urination To tolterodine ER 2 mg PO DAILY 90 caps 1RF 90 days C61 - Malignant neoplasm of prostate, C79.51 - Secondary malignant neoplasm of bone, R39.15 - Urgency of urination Patient Instructions: This note is constructed using voice recognition software. While every effort has been made to ensure accuracy front end java developer errors may have been included. Imaging studies, laboratory and physical exam results were discussed and reviewed in detail. No major barriers to patient understanding were identified. An opportunity to ask questions regarding the treatment plan was provided. All questions were answered. The patient expressed understanding and agreement with the above treatment plan. The patient is aware they should contact our office by phone for worsening of their current condition or the appearance of new urologic symptoms. Compliance is encouraged with any medications and followup testing that is ordered. It is a privilege to participate in the urologic care of your patient. If you have any questions or concerns regarding treatment for the above conditions, or other urologic issues, please do not hesitate to contact me. The office telephone contact is [phone]. Sincerely, Dr Dom Maier MD, [facility] - Urology Compassionate Specialist Care for the Genitourinary System Coding Level of Care Code Est Pt Level 3 ([address]) Add On Problem Visit Only Diagnoses Prostate cancer metastatic to bone C61; C79.51 Malignant neoplasm of dome of urinary bladder C67.1 Bladder location: dome Overactive bladder N32.81
--- OUTSIDE RECORDS SUMMARY | 2025-10-02 10:34 | XMS_ITS | Encounter Summary ---
Author Organization [facility] Address [address] [facility] [address] [place] [address] Phone Care Team Providers Care Pressed Or Blown Glass Worker Name Role Phone Eric Dinh MD Primary Care Provider [phone]- [phone] Encounter Details Date Type Department Care Team (Late st Contact Info) Description 06/23/2023 Procedure Pass [facility], Ct Scan - [address] [address] Social History Tobacco Use Types Packs/Day Years [...] as of this encounter Plan of Treatment Upcoming Encounters Date Type Department Care Team (Late st Contact Info) Description 11/03/2025 1:00 PM EST Office Visit [facility] [address] [place] [address] Keke Marrufo PA [address] [place] [phone] Cr Stapleton, PT [address] [place] [address] 11/10/2025 10:45 AM EST Office Visit [facility] [address] [place] [address] Keke Marrufo PA [address] [place] [phone] Cr Stapleton, PT [address] [place] [address] 11/12/2025 11:30 AM EST Office Visit [facility] [address] [place] [address] Keke Marrufo PA [address] [place] [phone] Jonel Pat, HEATING ELEMENT WINDER [address] [place] [address] 11/16/2025 10:15 AM EST Office Visit [facility] [address] [place] [address] [place] [address] Keke Marrufo PA [address] [place] [phone] Cr Stapleton, PT [address] [place] [address] 11/18/2025 1:00 PM EST Office Visit [facility] [address] [place] [address] Keke Marrufo PA [address] [place] [phone] Jonel Pat, HEATING ELEMENT WINDER [address] [place] [address] 11/23/2025 10:15 AM EST Office Visit [facility] [address] [place] [address] Keke Marrufo PA [address] [place] [phone] Cr Stapleton, PT [address] [place] [address] 11/25/2025 1:00 PM EST Office Visit [facility] [address] [place] [address] Keke Marrufo PA [address] [place] [phone] Jonel Pat, HEATING ELEMENT WINDER [address] [place] [address] 11/30/2025 10:15 AM EST Office Visit [facility] [address] [place] [address] Keke Marrufo PA [address] [place] [phone] Cr Stapleton, PT [address] [place] [address] documented as of this encounter Visit Diagnoses Not on filedocumented in this encounter Additional Health Concerns Infection Onset Date Last Indicated Resolved Time CoV-Risk 06/29/2023 06/29/2023 07/10/2023 1:22 AM EDT documented as of this encounter Care Teams Pressed Or Blown Glass Worker Relationship Specialty Start Date End Date Eric Dinh MD [address] [place] [phone] [email or web address] PCP - General Family Medicine 12/29/18 documented as of this encounter Additional Source Comments The information contained in this document represents components of the legal health record. It is not the complete legal health record.[facility]
--- OUTSIDE RECORDS SUMMARY | 2025-10-02 10:34 | XMS_ITS | Encounter Summary ---
Author Organization [employer] Address [address] [facility] 7t [place] [address] Care Team Providers Care Airbrush Artist Name Role Phone Unavailable Primary Care Provider Unavailabl e Reason for Visit * Reason Onset Date Comments medication 08/29/2024 Encounter Details Date Type Department Care Team ([facility] st Contact Info) Description 08/29/2024 Telephone [facility] ADULT DENTAL [address] [place], [place] [phone] Fredis Doe DDS [address] [place], [place] [phone] medication Social History Tobacco Use Types Packs/Day [...] pharmacy from app[facility] on [facility] * Telephone Encounter - Sheridan Barbour - 08/29/2024 11:36 AM EST Message for Dr. Doe Patient called in reporting that medication antibiotic was not sent to pharmacy for patient yesterday. Patient would like to be able to sampler pickup today prior to weekend starting DR documented in this encounter Plan of Treatment Upcoming Encounters Date Type Department Care Team (Late st Contact Info) Description 10/28/2025 9:30 AM EST Office Visit [facility] ADULT DENTAL [address] [place], [place] [phone] Natalia Valdes [address] [place] [address] documented as of this encounter Visit Diagnoses Not on filedocumented in this encounter
--- OUTSIDE RECORDS SUMMARY | 2025-10-02 10:34 | XMS_ITS | Encounter Summary ---
Author Organization [facility] Address [address] [facility] [address] [place] [address] Phone Care Team Providers Care Ship Erector Name Role Phone Eric Dinh MD Primary Care Provider +1- [phone] Encounter Details Date Type Department Care Team (Late st Contact Info) Description 11/24/2023 Procedure Pass [facility], Ct Scan - [address] [address] Social History Tobacco Use Types Packs/Day Years [...] Description 11/03/2025 1:00 PM EST Office Visit [facility] 8 [place] [address] Keke Marrufo PA [address] [place] [phone] Cr Stapleton, PT 8 [place] [address] 11/10/2025 10:45 AM EST Office Visit [facility] [address] [place] [address] Keke Marrufo PA [address] [place] [phone] Cr Stapleton, PT 8 [place] [address] 11/12/2025 11:30 AM EST Office Visit [facility] [address] [place] [address] Keke Marrufo PA [address] [place] [phone] Jonel Pat, HUC OB 8 [place] [address] 11/16/2025 10:15 AM EST Office Visit [facility] [address] [place] [address] [place] [address] Keke Marrufo PA [address] [place] [phone] Cr Stapleton, PT 8 [place] [address] 11/18/2025 1:00 PM EST Office Visit [facility] [address] [place] [address] Keke Marrufo PA [address] [place] [phone] FrancineJonel dozier, HUC OB 8 [place] [address] 11/23/2025 10:15 AM EST Office Visit [facility] Physical Therapy [facility] 8 [place] [address] Keke Marrufo PA [address] [place] [phone] Cr Stapleton, PT 8 [place] [address] 11/25/2025 1:00 PM EST Office Visit [facility] Physical Therapy [address] [address] Keke Marrufo PA [address] [place] [phone] FrancineJonel dozier, HUC OB 8 [place] [address] 11/30/2025 10:15 AM EST Office Visit [facility] Physical Therapy [address] [address] Keke Marrufo PA [address] [place] [phone] Cr Stapleton, PT 8 [place] [address] documented as of this encounter Visit Diagnoses Not on filedocumented in this encounter Care Teams Ship Erector Relationship Specialty Start Date End Date Eric Dinh MD [address] [place] [phone] [email or web address] PCP - General Family Medicine 12/29/18 documented as of this encounter Additional Source Comments The information contained in this document represents components of the legal health record. It is not the complete legal health record.[facility]
--- OUTSIDE RECORDS SUMMARY | 2025-10-02 10:34 | XMS_ITS | Clinical Summary ---
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 08/28/2024 Encounters Date Type Department Care Team Description 07/29/2025 8:00 AM EDT Office Visit [facility] ADULT DENTAL [address] [place], [place] [phone] Bolano, Fredis, DDS Dental abscess (Primary Dx) 07/28/2025 Telephone [facility] ADULT DENTAL [address] [place] [address] Fredis Doe DDS comp appt 07/14/2025 11:30 AM EDT Office Visit [facility] ADULT DENTAL [address] [place] [address] Fredis Doe DDS Odontalgia (Primary Dx); Severe [...] Description 10/28/2025 9:30 AM EST Office Visit [facility] ADULT DENTAL [address] [place] [address] Natalia Valdes [address] [place] [address] Health Maintenance Due Date Last Done Comments [...] AM EDT from Last 3 Months Insurance [facility]
--- OUTSIDE RECORDS SUMMARY | 2025-10-02 10:34 | XMS_ITS | Clinical Summary ---
Author Organization [facility] Address [address] [place] [address] [place] [address] Phone Care Team Providers Care Labor Relations Analyst Name Role Phone Svetlana Woodruff MD Primary Care Provider +1- [phone] Allergies Active Allergy Reactions Criticality Noted Date [...] Department Care Team Description 08/31/2025 Transcribe Orders [facility] Therapy Clinic [address] [place] [address] Keke Marrufo PA Encounter for rehabilitation (Primary Dx) 08/20/2025 6:30 PM EST - 08/20/2025 9:36 PM EST Emergency [facility] [address] [place] [address] Lc Mendoza MD Discharge Disposition: Home or Self Care 08/20/2025 Procedure Pass [facility], Ct Scan - [facility] [address] [place] [address] 08/20/2025 Procedure Pass [facility], Ct Scan [facility] [address] [place] [address] from Last 3 Months Family History Medical [...] 08/20/2025 8:52 PM EST Plan of Treatment Upcoming Encounters Date Type Department Care Team (Late st Contact Info) Description 11/03/2025 1:00 PM EST Office Visit [facility] [address] [place] [address] [place] [address] Keke Marrufo PA [address] [place] [phone] Cr Stapleton, PT 8 [place] [address] 11/10/2025 10:45 AM EST Office Visit [facility] [address] [place] [address] Keke Marrufo PA [address] [place] [phone] Cr Stapleton, PT 8 [place] [address] 11/12/2025 11:30 AM EST Office Visit [facility] Physical Therapy Clinic [address] [place] [address] [place] [address] Keke Marrufo PA [address] [place] [phone] Jonel Pat, VACUUM CLEANER MECHANIC [address] [place] [address] 11/16/2025 10:15 AM EST Office Visit [facility] Physical Therapy [address] [place] [address] Keke Marrufo PA [address] [place] [phone] Cr Stapleton, PT 8 [place] [address] 11/18/2025 1:00 PM EST Office Visit [facility] Physical Therapy [address] [address] Keke Marrufo PA [address] [place] [phone] Jonel Pat, [address] [address] 11/23/2025 10:15 AM EST Office Visit [facility] Physical Therapy [address] [place] [address] Keke Marrufo PA [address] [place] [phone] Cr Stapleton, PT 8 [place] [address] 11/25/2025 1:00 PM EST Office Visit [facility] 8 [place] [address] Keke Marrufo PA [address] [place] [phone] Jonel Pat, VACUUM CLEANER MECHANIC 8 [place] [address] 11/30/2025 10:15 AM EST Office Visit [facility] [address] [place] [address] [place] [address] Keke Marrufo PA [address] [place] [phone] Cr Stapleton, PT 8 [place] [address] Health Maintenance Due Date Last Done Comments [...] clinician's provided indication for this examination in [facility]: * Head trauma, minor (Age >= 65y) [...] clinician's provided indication for this examination in [facility]: *Head trauma, minor (Age >= 65y) TECHNIQUE: [...] the cervical spine. us Lc Mendoza MD IM CT HEAD/NECK Final Resu lt * ENDOSCOPY, COLON (08/01/2024 2:24 PM EDT) Narrative Transcriptions Daina Tenorio MD - 08/01/2024 2:24 PM EDT [facility] Patient Name: Kody Lior Attending MD:: DAINA TENORIO MD, Procedure Date: 08/01/2024 2:24 PM Date of : 1950 Age: 73 Admit Type: Outpatient Gender: Male Room: [place] [address] Referring MD: SVETLANA WOODRUFF MD Exam Type: [...] monitored continuously. The Olympus adult variable colonoscope [id number] #7 was introduced through the anus and [...] 2:24 PM Procedure Code(s): --- Professional --- 14837, Colonoscopy, flexible; diagnostic, including collection of specimen(s) by brushing or washing, when performed (separateprocedure) --- Technical --- 34321, Colonoscopy, flexible; diagnostic, including collection of specimen(s) [...] or abscess without bleeding CPT copyright 2021 [employer]. All rights reserved. The codes documented in this report are preliminary and upon physician coder reviewmay be revised to meet current compliance requirements. Procedure Date: 08/01/2024 2:24:14 PM 30 [place], [place] [phone] Svetlana Woodruff MD GI PROCEDURE ORDERABLES Fin al Result from Last 3 Months or Most Recently Relevant to Health Maintenance Insurance MEDICARE REPLACEMENT BAILEY MACHADO [id number] [place] [address] MEDICARE REPLACEMENT BAILEY MACHADO [id number] MEDICARE REPLACEMENT MEDICARE REPLACEMENT MEDICARE REPLACEMENT O MEDICARE REPLACEMENT O MEDICARE REPLACEMENT O MEDICARE REPLACEMENT Care Teams Labor Relations Analyst Relationship Specialty Start Date End Date Svetlana Woodruff MD [address] [place] [phone] [email or web address] PCP - General Family Medicine 12/29/18 Additional Source Comments The information contained in this document represents components of the legal health record. It is not the complete legal health record.[facility]
--- OUTSIDE RECORDS SUMMARY | 2025-10-02 10:34 | XMS_ITS | Encounter Summary ---
Author Organization [facility] Address [address] [facility] [address] [place] [address] Phone Care Team Providers Care Waste Reclaimer Name Role Phone Eric Dinh MD Primary Care Provider +1- [phone] Encounter Details Date Type Department Care Team (Late st Contact Info) Description 11/24/[address] [facility], Ct Scan - [address] [address] Social History Tobacco Use Types Packs/Day Years [...] Description 11/03/2025 1:00 PM EST Office Visit [facility] Therapy Clinic 8 [place] [address] Keke Marrufo PA [address] [place] [phone] Cr Stapleton, PT 8 [place] [address] 11/10/2025 10:45 AM EST Office Visit [facility] [address] [place] [address] Keke Marrufo PA [address] [place] [phone] Cr Stapleton, PT 8 [place] [address] 11/12/2025 11:30 AM EST Office Visit [facility] [address] [place] [address] Keke Marrufo PA [address] [place] [phone] Jonel Pat, BOWLING ALLEY OPERATOR 8 [place] [address] 11/16/2025 10:15 AM EST Office Visit [facility] [address] [place] [address] [place] [address] Keke Marrufo PA [address] [place] [phone] Cr Stapleton, PT 8 [place] [address] 11/18/2025 1:00 PM EST Office Visit [facility] [address] [place] [address] Keke Marrufo PA [address] [place] [phone] FrancineJonel dozier, BOWLING ALLEY OPERATOR 8 [place] [address] 11/23/2025 10:15 AM EST Office Visit [facility] Physical Therapy [facility] 8 [place] [address] Keke Marrufo PA [address] [place] [phone] Cr Stapleton, PT 8 [place] [address] 11/25/2025 1:00 PM EST Office Visit [facility] Physical Therapy [address] [address] Keke Marrufo PA [address] [place] [phone] FrancineJonel dozier, BOWLING ALLEY OPERATOR 8 [place] [address] 11/30/2025 10:15 AM EST Office Visit [facility] Physical Therapy [address] [address] Keke Marrufo PA [address] [place] [phone] Cr Stapleton, PT 8 [place] [address] documented as of this encounter Visit Diagnoses Not on filedocumented in this encounter Care Teams Waste Reclaimer Relationship Specialty Start Date End Date Eric Dinh MD [address] [place] [phone] [email or web address] PCP - General Family Medicine 12/29/18 documented as of this encounter Additional Source Comments The information contained in this document represents components of the legal health record. It is not the complete legal health record.[facility]
--- OUTSIDE RECORDS SUMMARY | 2025-10-02 10:34 | XMS_ITS | Encounter Summary ---
Author Organization [employer] Address [address] [place] [address] 7t [place] [address] Care Team Providers Care Talent Program Manager Name Role Phone Unavailable Primary Care Provider Unavailabl e Reason for Visit * Reason Onset Date Comments comp appt 07/28/2025 Encounter Details Date Type Department Care Team ([facility] st Contact Info) Description 07/28/2025 Telephone [facility] ADULT DENTAL [address] [place], [place] [phone] Fredis Doe DDS [address] [place], [place] [phone] comp appt Social History Tobacco Use Types [...] Upcoming Encounters Date Type Department Care Team ([facility] st Contact Info) Description 10/28/2025 9:30 AM EST Office Visit [facility] ADULT DENTAL 230 [place] [address] Natalia Valdes [address] [place] [address] documented as of this encounter Visit Diagnoses Not on filedocumented in this encounter
--- OUTSIDE RECORDS SUMMARY | 2025-10-02 10:34 | XMS_ITS | Encounter Summary ---
Author Organization [facility] Address [address] [facility] [address] [place] [address] Phone Care Team Providers Care Medical Reimbursement Specialist Name Role Phone Eric Dinh MD Primary Care Provider +1 [phone] Encounter Details Date Type Department Care Team ([facility] st Contact Info) Description 08/01/2024 Procedure Pass [facility] Endoscopy Admitting Dept Virtual Department [address] [place], [place] [phone] Social History Tobacco Use Types Packs/Day Years [...] Description 11/03/2025 1:00 PM EST Office Visit [facility] Therapy Clinic [address] [place] [address] Keke Marrufo PA [address] [place] [phone] Cr Stapleton, PT 8 [place] [address] 11/10/2025 10:45 AM EST Office Visit [facility] [address] [place] [address] Keke Marrufo PA [address] [place] [phone] Cr Stapleton, PT 8 [place] [address] 11/12/2025 11:30 AM EST Office Visit [facility] [address] [place] [address] Keke Marrufo PA [address] [place] [phone] Jonel Pat, FARM MACHINE OPERATOR 8 [place] [address] 11/16/2025 10:15 AM EST Office Visit [facility] [address] [place] [address] Keke Marrufo PA [address] [place] [phone] Cr Stapleton, PT 8 [place] [address] 11/18/2025 1:00 PM EST Office Visit [facility] [address] [place] [address] Keke Marrufo PA [address] [place] [phone] Jonel Pat, FARM MACHINE OPERATOR [address] [place] [address] 11/23/2025 10:15 AM EST Office Visit [facility] [address] [place] [address] Keke Marrufo PA [address] [place] [phone] Cr Stapleton, PT 8 [place] [address] 11/25/2025 1:00 PM EST Office Visit [facility] [address] [place] [address] Keke Marrufo PA [address] [place] [phone] Jonel Pat, FARM MACHINE OPERATOR [address] [place] [address] 11/30/2025 10:15 AM EST Office Visit [facility] [address] [place] [address] Keke Marrufo PA [address] [place] [phone] Cr Stapleton, PT 8 [place] [address] [email or web address] documented as of this encounter Visit Diagnoses Not on filedocumented in this encounter Care Teams Medical Reimbursement Specialist Relationship Specialty Start Date End Date Eric Dinh MD [address] [place] [phone] [email or web address] PCP - General Family Medicine 12/29/18 documented as of this encounter Additional Source Comments The information contained in this document represents components of the legal health record. It is not the complete legal health record.[facility]
--- OUTSIDE RECORDS SUMMARY | 2025-10-02 10:35 | XMS_ITS | Encounter Summary ---
Author Organization [facility] Address [address] [facility] [address] [place] [address] Phone Care Team Providers Care Design Intern Name Role Phone Eric Dinh MD Primary Care Provider +1- [phone] Encounter Details Date Type Department Care Team (Late st Contact Info) Description 03/19/2019 Procedure Pass [facility] Endoscopy Admitting Dept Virtual Department [address] [place] [address] Social History Tobacco Use Types Packs/Day Years [...] Description 11/03/2025 1:00 PM EST [facility] 8 [place] [address] Keke Marrufo PA [address] [place] [phone] Cr Stapleton, PT 8 [place] [address] 11/10/2025 10:45 AM EST Office Visit [facility] Therapy Clinic 8 [place] [address] Keke Marrufo PA [address] [place] [phone] Cr Stapleton, PT 8 [place] [address] 11/12/2025 11:30 AM EST Office Visit [facility] Therapy [facility] [address] [place] [address] [place] [address] Keke Marrufo PA [address] [place] [phone] Jonel Pat, [address] [address] 11/16/2025 10:15 AM EST Office Visit [facility] Therapy [facility] [address] [place] [address] [place] [address] Keke Marrufo PA [address] [place] [phone] Cr Stapleton, PT 8 [place] [address] 11/18/2025 1:00 PM EST Office Visit [facility] [address] [place] [address] [place] [address] Keke Marrufo PA [address] [place] [phone] Jonel Pat, [address] [address] 11/23/2025 10:15 AM EST Office Visit [facility] Therapy [facility] [address] [place] [address] [place] [address] Keke Marrufo PA [address] [place] [phone] Cr Stapleton, PT 8 [place] [address] 11/25/2025 1:00 PM EST Office Visit [facility] Therapy [facility] [address] [place] [address] Keke Marrufo PA [address] [place] [phone] Jonel Pat, NETWORK CONTRACTOR 8 [place] [address] 11/30/2025 10:15 AM EST Office Visit [facility] 8 [place] [address] Keke Marrufo PA [address] [place] [phone] Cr Stapleton, PT 8 [place] [address] documented as of this encounter Visit Diagnoses Not on filedocumented in this encounter Additional Health Concerns Infection Onset Date Last Indicated Resolved Time CoV-Risk 06/29/2023 06/29/2023 07/10/2023 1:22 AM EDT documented as of this encounter Care Teams Design Intern Relationship Specialty Start Date End Date Eric Dinh MD [address] [place] [phone] [email or web address] PCP - General Family Medicine 12/29/18 documented as of this encounter Additional Source Comments The information contained in this document represents components of the legal health record. It is not the complete legal health record.[facility]
--- OUTSIDE RECORDS SUMMARY | 2025-10-02 10:35 | XMS_ITS | Encounter Summary ---
Author Organization [facility] Address [address] [facility] [address] [place] [address] Phone Care Team Providers Care Eeo Officer Name Role Phone Eric Dinh MD Primary Care Provider +1- [phone] Encounter Details Date Type Department Care Team (Late st Contact Info) Description 03/03/2020 Procedure Pass [facility] Endoscopy Admitting Dept Virtual Department [address] [place] [address] Social History Tobacco Use Types Packs/Day Years [...] Description 11/03/2025 1:00 PM EST [facility] 8 [place] [address] Keke Marrufo PA [address] [place] [phone] Cr Stapleton, PT 8 [place] [address] 11/10/2025 10:45 AM EST Office Visit [facility] Therapy [facility] [address] [place] [address] Keke Marrufo PA [address] [place] [phone] Cr Stapleton, PT 8 [place] [address] 11/12/2025 11:30 AM EST Office Visit [facility] [address] [place] [address] [place] [address] Keke Marrufo PA [address] [place] [phone] Jonel Pat, [address] [address] 11/16/2025 10:15 AM EST Office Visit [facility] [address] [place] [address] [place] [address] Keke Marrufo PA [address] [place] [phone] Cr Stapleton, PT 8 [place] [address] 11/18/2025 1:00 PM EST Office Visit [facility] [address] [place] [address] [place] [address] Keke Marrufo PA [address] [place] [phone] Jonel Pat, [address] [address] 11/23/2025 10:15 AM EST Office Visit [facility] [address] [place] [address] [place] [address] Keke Marrufo PA [address] [place] [phone] Cr Stapleton, PT 8 [place] [address] 11/25/2025 1:00 PM EST Office Visit [facility] [address] [place] [address] Keke Marrufo PA [address] [place] [phone] Jonel Pat, OIL AND GAS PRINCIPAL 8 [place] [address] 11/30/2025 10:15 AM EST Office Visit [facility] 8 [place] [address] Keke Marrufo PA [address] [place] [phone] Cr Stapleton, PT 8 [place] [address] documented as of this encounter Visit Diagnoses Not on filedocumented in this encounter Additional Health Concerns Infection Onset Date Last Indicated Resolved Time CoV-Risk 06/29/2023 06/29/2023 07/10/2023 1:22 AM EDT documented as of this encounter Care Teams Eeo Officer Relationship Specialty Start Date End Date Eric Dinh MD [address] [place] [phone] [email or web address] PCP - General Family Medicine 12/29/18 documented as of this encounter Additional Source Comments The information contained in this document represents components of the legal health record. It is not the complete legal health record.[facility]
--- OUTSIDE RECORDS SUMMARY | 2025-10-02 10:35 | XMS_ITS | Encounter Summary ---
Author Organization [facility] Address [address] [facility] [address] [place] [address] Phone Care Team Providers Care Lens And Frames Prescription Clerk Name Role Phone Eric Dinh MD Primary Care Provider +1- [phone] Encounter Details Date Type Department Care Team (Late st Contact Info) Description 10/08/2023 Procedure Pass [facility], Ct Scan - [address] [address] Social History Tobacco Use Types Packs/Day Years [...] Description 11/03/2025 1:00 PM EST Office Visit [facility] 8 [place] [address] Keke Marrufo PA [address] [place] [phone] Cr Stapleton, PT 8 [place] [address] 11/10/2025 10:45 AM EST Office Visit [facility] Physical Therapy Clinic [address] [place] [address] Keke Marrufo PA [address] [place] [phone] Cr Stapleton, PT 8 [place] [address] 11/12/2025 11:30 AM EST Office Visit [facility] [address] [place] [address] Keke Marrufo PA [address] [place] [phone] Jonel Pat, OPTICAL INSTRUMENT ASSEMBLER 8 [place] [address] 11/16/2025 10:15 AM EST Office Visit [facility] Physical Therapy [facility] [address] [place] [address] [place] [address] Keke Marrufo PA [address] [place] [phone] Cr Stapleton, PT 8 [place] [address] 11/18/2025 1:00 PM EST Office Visit [facility] Therapy [facility] [address] [place] [address] Keke Marrufo PA [address] [place] [phone] FrancineJonel dozier, OPTICAL INSTRUMENT ASSEMBLER 8 [place] [address] 11/23/2025 10:15 AM EST Office Visit [facility] Physical Therapy [facility] 8 [place] [address] Keke Marrufo PA [address] [place] [phone] Cr Stapleton, PT 8 [place] [address] 11/25/2025 1:00 PM EST Office Visit [facility] Physical Therapy [address] [address] Keke Marrufo PA [address] [place] [phone] FrancineJonel dozier, OPTICAL INSTRUMENT ASSEMBLER 8 [place] [address] 11/30/2025 10:15 AM EST Office Visit [facility] Physical Therapy [address] [address] Keke Marrufo PA [address] [place] [phone] Cr Stapleton, PT 8 [place] [address] documented as of this encounter Visit Diagnoses Not on filedocumented in this encounter Care Teams Lens And Frames Prescription Clerk Relationship Specialty Start Date End Date Eric Dinh MD [address] [place] [phone] [email or web address] PCP - General Family Medicine 12/29/18 documented as of this encounter Additional Source Comments The information contained in this document represents components of the legal health record. It is not the complete legal health record.[facility]
--- OUTSIDE RECORDS SUMMARY | 2025-10-02 10:35 | XMS_ITS | Encounter Summary ---
Author Organization [facility] Address [address] [facility] [address] [place] [address] Phone Care Team Providers Care Research Archaeologist Name Role Phone Eric Dinh MD Primary Care Provider +1- [phone] Encounter Details Date Type Department Care Team (Late st Contact Info) Description 04/10/2020 Procedure Pass [facility], Ct Scan - [address] [address] Social History Tobacco Use Types Packs/Day Years [...] Description 11/03/2025 1:00 PM EST Office Visit [facility] Therapy [facility] 8 [place] [address] Keke Marrufo PA [address] [place] [phone] Cr Stapleton, PT 8 [place] [address] 11/10/2025 10:45 AM EST Office Visit [facility] Therapy [facility] [address] [place] [address] Keke Marrufo PA [address] [place] [phone] Cr Stapleton, PT 8 [place] [address] 11/12/2025 11:30 AM EST Office Visit [facility] [address] [place] [address] [place] [address] Keke Marrufo PA [address] [place] [phone] Jonel Pat, [address] [address] 11/16/2025 10:15 AM EST Office Visit [facility] Therapy [facility] [address] [place] [address] Keke Marrufo PA [address] [place] [phone] Cr Stapleton, PT 8 [place] [address] 11/18/2025 1:00 PM EST Office Visit [facility] [address] [place] [address] [place] [address] Keke Marrufo PA [address] [place] [phone] Jonel Pat, [address] [address] 11/23/2025 10:15 AM EST Office Visit [facility] Therapy [facility] [address] [place] [address] [place] [address] Keke Marrufo PA [address] [place] [phone] Cr Stapleton, PT 8 [place] [address] 11/25/2025 1:00 PM EST Office Visit [facility] Therapy [facility] [address] [place] [address] Keke Marrufo PA [address] [place] [phone] Jonel Pat, AUTOMATION MECHANIC 8 [place] [address] 11/30/2025 10:15 AM EST Office Visit [facility] Therapy [facility] 8 [place] [address] Keke Marrufo PA [address] [place] [phone] Cr Stapleton, PT 8 [place] [address] documented as of this encounter Visit Diagnoses Not on filedocumented in this encounter Additional Health Concerns Infection Onset Date Last Indicated Resolved Time CoV-Risk 06/29/2023 06/29/2023 07/10/2023 1:22 AM EDT documented as of this encounter Care Teams Research Archaeologist Relationship Specialty Start Date End Date Eric Dinh MD [address] [place] [phone] [email or web address] PCP - General Family Medicine 12/29/18 documented as of this encounter Additional Source Comments The information contained in this document represents components of the legal health record. It is not the complete legal health record.[facility]
--- OUTSIDE RECORDS SUMMARY | 2025-10-02 10:35 | XMS_ITS | Encounter Summary ---
Author Organization [facility] Address [address] [facility] [address] [place] [address] Phone Care Team Providers Care Committee Member Name Role Phone Eric Dinh MD Primary Care Provider +1- [phone] Encounter Details Date Type Department Care Team (Late st Contact Info) Description 08/04/2020 Procedure Pass [facility] [address] [place] [address] Social History Tobacco Use Types Packs/Day Years [...] Description 11/03/2025 1:00 PM EST Office Visit [facility] [address] [place] [address] Keke Marrufo PA [address] [place] [phone] Cr Stapleton, PT 8 [place] [address] 11/10/2025 10:45 AM EST Office Visit [facility] [address] [place] [address] Keke Marrufo PA [address] [place] [phone] Cr Stapleton, PT 8 [place] [address] 11/12/2025 11:30 AM EST Office Visit [facility] [address] [place] [address] [place] [address] Keke Marrufo PA [address] [place] [phone] Jonel Pat, ADJUNCT PSYCHOLOGY PROFESSOR [address] [place] [address] 11/16/2025 10:15 AM EST Office Visit [facility] Physical Therapy [address] [place] [address] Keke Marrufo PA [address] [place] [phone] Cr Stapleton, PT 8 [place] [address] 11/18/2025 1:00 PM EST Office Visit [facility] Physical Therapy [address] [address] Keke Marrufo PA [address] [place] [phone] Jonel Pat, [address] [address] 11/23/2025 10:15 AM EST Office Visit [facility] Therapy [address] [place] [address] Keke Marrufo PA [address] [place] [phone] Cr Stapleton, PT 8 [place] [address] 11/25/2025 1:00 PM EST Office Visit [facility] 8 [place] [address] Keke Marrufo PA [address] [place] [phone] Jonel Pat, ADJUNCT PSYCHOLOGY PROFESSOR 8 [place] [address] 11/30/2025 10:15 AM EST Office Visit [facility] [address] [place] [address] Keke Marrufo PA [address] [place] [phone] Cr Stapleton, PT 8 [place] [address] documented as of this encounter Visit Diagnoses Not on filedocumented in this encounter Additional Health Concerns Infection Onset Date Last Indicated Resolved Time CoV-Risk 06/29/2023 06/29/2023 07/10/2023 1:22 AM EDT documented as of this encounter Care Teams Committee Member Relationship Specialty Start Date End Date Eric Dinh MD [address] [place] [phone] [email or web address] PCP - General Family Medicine 12/29/18 documented as of this encounter Additional Source Comments The information contained in this document represents components of the legal health record. It is not the complete legal health record.[facility]
--- OUTSIDE RECORDS SUMMARY | 2025-10-02 10:35 | XMS_ITS | Encounter Summary ---
Author Organization [facility] Address [address] [facility] [address] [place] [address] Phone Care Team Providers Care Mix Technician Name Role Phone Eric Dinh MD Primary Care Provider +1- [phone] Encounter Details Date Type Department Care Team (Late st Contact Info) Description 10/08/2023 Procedure Pass [facility], Ct Scan - [address] [address] Social History Tobacco Use Types Packs/Day Years [...] Description 11/03/2025 1:00 PM EST Office Visit [facility] Physical Therapy Clinic 8 [place] [address] Keke Marrufo PA [address] [place] [phone] Cr Stapleton, PT 8 [place] [address] 11/10/2025 10:45 AM EST Office Visit [facility] Therapy [facility] [address] [place] [address] Keke Marrufo PA [address] [place] [phone] Cr Stapleton, PT 8 [place] [address] 11/12/2025 11:30 AM EST Office Visit [facility] Therapy [facility] [address] [place] [address] Keke Marrufo PA [address] [place] [phone] Jonel Pat, PROPERTY MASTER 8 [place] [address] 11/16/2025 10:15 AM EST Office Visit [facility] [address] [place] [address] [place] [address] Keke Marrufo PA [address] [place] [phone] Cr Stapleton, PT 8 [place] [address] 11/18/2025 1:00 PM EST Office Visit [facility] [address] [place] [address] Keke Marrufo PA [address] [place] [phone] FrancineJonel dozier, PROPERTY MASTER 8 [place] [address] 11/23/2025 10:15 AM EST Office Visit [facility] Physical Therapy [facility] 8 [place] [address] Keke Marrufo PA [address] [place] [phone] Cr Stapleton, PT 8 [place] [address] 11/25/2025 1:00 PM EST Office Visit [facility] Physical Therapy [address] [address] Keke Marrufo PA [address] [place] [phone] FrancineJonel dozier, PROPERTY MASTER 8 [place] [address] 11/30/2025 10:15 AM EST Office Visit [facility] Physical Therapy [address] [address] Keke Marrufo PA [address] [place] [phone] Cr Stapleton, PT 8 [place] [address] documented as of this encounter Visit Diagnoses Not on filedocumented in this encounter Care Teams Mix Technician Relationship Specialty Start Date End Date Eric Dinh MD [address] [place] [phone] [email or web address] PCP - General Family Medicine 12/29/18 documented as of this encounter Additional Source Comments The information contained in this document represents components of the legal health record. It is not the complete legal health record.[facility]
--- OUTSIDE RECORDS SUMMARY | 2025-10-02 10:35 | XMS_ITS | Encounter Summary ---
Author Organization [facility] Address [address] [place] [address] [place] [address] Phone Care Team Providers Care Combined Rail Operator Name Role Phone Eric Dinh MD Primary Care Provider +1- [phone] Encounter Details Date Type Department Care Team (Late Contact Info) Description 08/18/2019 Transcribe Orders Virtual Department [address] [place] [address] Eric Dinh MD [address] [place], [place] [phone] [email or web address] Dyspnea on exertion (Primary Dx) Social History [...] Visit [facility] 8 [place] [address] Keke Marrufo PA [address] [place] [phone] Cr Stapleton, PT 8 [place] [address] 11/10/2025 10:45 AM EST Office Visit [facility] [address] [place] [address] Keke Marrufo PA [address] [place] [phone] Cr Stapleton, PT 8 [place] [address] 11/12/2025 11:30 AM EST Office Visit [facility] [address] [place] [address] Keke Marrufo PA [address] [place] [phone] Jonel Pat, ART EDITOR 8 [place] [address] 11/16/2025 10:15 AM EST Office Visit [facility] [address] [place] [address] [place] [address] Keke Marrufo PA [address] [place] [address] [phone] Cr Stapleton, PT 8 [place] [address] 11/18/2025 1:00 PM EST Office Visit [facility] [address] [place] [address] Keke Marrufo PA [address] [place] [address] [phone] Jonel Pat, ART EDITOR 8 [place] [address] 11/23/2025 10:15 AM EST Office Visit [facility] [address] [place] [address] Keke Marrufo PA [address] [place] [phone] Cr Stapleton, PT 8 [place] [address] 11/25/2025 1:00 PM EST Office Visit [facility] [address] [place] [address] Keke Marrufo PA [address] [place] [address] [phone] Jonel Pat, ART EDITOR 8 [place] [address] [email or web address] 11/30/2025 10:15 AM EST Office Visit [facility] [address] [place] [address] [place] [address] Keke Marrufo PA [address] [place] [address] [phone] Cr Stapleton, PT 8 [place] [address] [email or web address] documented as of this encounter Results * [...] testing with alternative lung volume measurement methodology. Eric Dinh MD PFT ORDERABLES Final Resul t documented in this encounter Visit Diagnoses Diagnosis Dyspnea on exertion- Primary Other dyspnea and respiratory abnormality Dyspnea on exertion Other dyspnea and respiratory abnormality documented in this encounter Additional Health Concerns Infection Onset Date Last Indicated Resolved Time CoV-Risk 06/29/2023 06/29/2023 07/10/2023 1:22 AM EDT documented as of this encounter Care Teams Combined Rail Operator Relationship Specialty Start Date End Date Eric Dinh MD [address] [place] [phone] [email or web address] PCP - General Family Medicine 12/29/18 documented as of this encounter Additional Source Comments The information contained in this document represents components of the legal health record. It is not the complete legal health record.[facility]
--- OUTSIDE RECORDS SUMMARY | 2025-10-02 10:35 | XMS_ITS | Encounter Summary ---
Author Organization [facility] Address [address] [facility] [address] [place] [address] Phone Care Team Providers Care Balloon Pilot Name Role Phone Eric Dinh MD Primary Care Provider +1- [phone] Encounter Details Date Type Department Care Team (Late st Contact Info) Description 07/16/2019 Procedure Pass [facility] Admitting Dept Virtual Department [address] [place] [address] Social History Tobacco Use Types Packs/Day Years [...] Description 11/03/2025 1:00 PM EST Office Visit [facility] 8 [place] [address] Keke Marrufo PA [address] [place] [phone] Cr Stapleton, PT 8 [place] [address] 11/10/2025 10:45 AM EST Office Visit [facility] Therapy Clinic [address] [place] [address] Keke Marrufo PA [address] [place] [phone] Cr Stapleton, PT 8 [place] [address] 11/12/2025 11:30 AM EST Office Visit [facility] Therapy Clinic [address] [place] [address] [place] [address] Keke Marrufo PA [address] [place] [phone] Jonel Pat, [address] [address] 11/16/2025 10:15 AM EST Office Visit [facility] [address] [place] [address] [place] [address] Keke Marrufo PA [address] [place] [phone] Cr Stapleton, PT 8 [place] [address] 11/18/2025 1:00 PM EST Office Visit [facility] Therapy [facility] [address] [place] [address] [place] [address] Keke Marrufo PA [address] [place] [phone] Jonel Pat, [address] [address] 11/23/2025 10:15 AM EST Office Visit [facility] Therapy [facility] [address] [place] [address] [place] [address] Keke Marrufo PA [address] [place] [phone] Cr Stapleton, PT 8 [place] [address] 11/25/2025 1:00 PM EST Office Visit [facility] Therapy [facility] [address] [place] [address] Keke Marrufo PA [address] [place] [phone] Jonel Pat, PIPE ROLLER 8 [place] [address] 11/30/2025 10:15 AM EST Office Visit [facility] Therapy [facility] 8 [place] [address] Keke Marrufo PA [address] [place] [phone] Cr Stapleton, PT 8 [place] [address] documented as of this encounter Visit Diagnoses Not on filedocumented in this encounter Additional Health Concerns Infection Onset Date Last Indicated Resolved Time CoV-Risk 06/29/2023 06/29/2023 07/10/2023 1:22 AM EDT documented as of this encounter Care Teams Balloon Pilot Relationship Specialty Start Date End Date Eric Dinh MD [address] [place] [phone] [email or web address] PCP - General Family Medicine 12/29/18 documented as of this encounter Additional Source Comments The information contained in this document represents components of the legal health record. It is not the complete legal health record.[facility]
--- OUTSIDE RECORDS SUMMARY | 2025-10-02 10:35 | XMS_ITS | Encounter Summary ---
Author Organization [facility] Address [address] [facility] [address] [place] [address] Phone Care Team Providers Care Wall Taper Name Role Phone Eric Dinh MD Primary Care Provider +1- [phone] Encounter Details Date Type Department Care Team (Late st Contact Info) Description 09/28/2023 Procedure Pass [facility], Ct Scan - [address] [address] Social History Tobacco Use Types Packs/Day Years [...] Visit [facility] 8 [place] [address] Keke Marrufo PA [address] [place] [phone] Cr Stapleton, PT 8 [place] [address] 11/10/2025 10:45 AM EST Office Visit [facility] [address] [place] [address] Keke Marrufo PA [address] [place] [phone] Cr Stapleton, PT 8 [place] [address] 11/12/2025 11:30 AM EST Office Visit [facility] [address] [place] [address] Keke Marrufo PA [address] [place] [phone] Jonel Pat, PRINTED CIRCUIT BOARD PANELS TRIMMER 8 [place] [address] 11/16/2025 10:15 AM EST Office Visit [facility] [address] [place] [address] [place] [address] Keke Marrufo PA [address] [place] [phone] Cr Stapleton, PT 8 [place] [address] 11/18/2025 1:00 PM EST Office Visit [facility] [address] [place] [address] Keke Marrufo PA [address] [place] [phone] FrancineJonel dozier, PRINTED CIRCUIT BOARD PANELS TRIMMER 8 [place] [address] 11/23/2025 10:15 AM EST Office Visit [facility] Physical Therapy [facility] 8 [place] [address] Keke Marrufo PA [address] [place] [phone] Cr Stapleton, PT 8 [place] [address] 11/25/2025 1:00 PM EST Office Visit [facility] Physical Therapy [address] [address] Keke Marrufo PA [address] [place] [phone] FrancineJonel dozier, PRINTED CIRCUIT BOARD PANELS TRIMMER 8 [place] [address] 11/30/2025 10:15 AM EST Office Visit [facility] Therapy [address] [address] Keke Marrufo PA [address] [place] [place] [phone] Cr Stapleton, PT 8 [place] [address] documented as of this encounter Visit Diagnoses Not on filedocumented in this encounter Care Teams Wall Taper Relationship Specialty Start Date End Date Eric Dinh MD [address] [place] [phone] [email or web address] PCP - General Family Medicine 12/29/18 documented as of this encounter Additional Source Comments The information contained in this document represents components of the legal health record. It is not the complete legal health record.[facility]
--- OUTSIDE RECORDS SUMMARY | 2025-10-02 10:35 | XMS_ITS | Encounter Summary ---
Author Organization [facility] Address [address] [place] [address] [place] [address] Phone Care Team Providers Care Warehouse Administrative Assistant Name Role Phone Eric Dinh MD Primary Care Provider [phone] Reason for Referral * MRI/CAT Scan - Closed Specialty Diagnoses / Procedures Referred By Contac t Referred To Contact Radiology Diagnoses Migraine without status migrainosus, not intractable, unspecified migraine type Blurred vision Procedures MRI Brain CHG MRI BRAIN COMBO Eric Dinh MD [address] [place] [address] Phone: tel: fax: mailto:[email or web address] Referral ID Status Reason Start Date Expiration Date Visits Re quested Visits Authorized [id number] Closed 07/22/2023 11/19/2023 1 1 Encounter Details Date Type Department Care Team (Late st Contact Info) Description 07/31/2023 Transcribe Orders Virtual Department [address] [place] [address] Eric Dinh MD [address] [place] [phone] [email or web address] Migraine without status migrainosus, not intractable, unspecified [...] Description 11/03/2025 1:00 PM EST Office Visit [facility] [address] [place] [address] Keke Marrufo PA [address] [place] [phone] Cr Stapleton, PT 8 [place] [address] [email or web address] 11/10/2025 10:45 AM EST Office Visit [facility] [address] [place] [address] Keke Marrufo PA [address] [place] [phone] Cr Stapleton, PT 8 [place] [address] [email or web address] 11/12/2025 11:30 AM EST Office Visit [facility] [address] [place] [address] Keke Marrufo PA [address] [place] [phone] Jonel Pat, HEALTHCARE ECONOMICS MANAGER 8 [place] [address] 11/16/2025 10:15 AM EST Office Visit [facility] [address] [place] [address] Keke Marrufo PA [address] [place] [phone] Cr Stapleton, PT 8 [place] [address] 11/18/2025 1:00 PM EST Office Visit [facility] [address] [place] [address] [place] [address] Keke Marrufo PA [address] [place] [phone] Jonel Pat, HEALTHCARE ECONOMICS MANAGER 8 [place] [address] 11/23/2025 10:15 AM EST Office Visit [facility] [address] [place] [address] Keke Marrufo PA [address] [place] [phone] Cr Stapleton, PT 8 [place] [address] 11/25/2025 1:00 PM EST Office Visit [facility] [address] [place] [address] [place] [address] Keke Marrufo PA [address] [place] [phone] Jonel Pat, HEALTHCARE ECONOMICS MANAGER 8 [place] [address] 11/30/2025 10:15 AM EST Office Visit [facility] [address] [place] [address] Keke Marrufo PA [address] [place] [phone] Cr Stapleton, PT 8 [place] [address] documented as of this encounter Results * [...] clinician's provided indication for this examination in [facility]: Outside Radiology Order; migraine TECHNIQUE: [...] clinician's provided indication for this examination in [facility]:Outside Radiology Order; migraine TECHNIQUE: MRI BRAIN WITH [...] disturbances documented in this encounter Care Teams Warehouse Administrative Assistant Relationship Specialty Start Date End Date Eric Dinh MD [address] [place] [phone] [email or web address] PCP - General Family Medicine 12/29/18 documented as of this encounter Additional Source Comments The information contained in this document represents components of the legal health record. It is not the complete legal health record.[facility]
--- OUTSIDE RECORDS SUMMARY | 2025-10-02 10:35 | XMS_ITS | Encounter Summary ---
Author Organization [facility] Address [address] [place] [address] [place] [address] Phone Care Team Providers Care Mechanical Process Engineer Name Role Phone Eric Dinh MD Primary Care Provider [phone]- [phone] Encounter Details Date Type Department Care Team (Late st Contact Info) Description 07/31/2023 Procedure Pass [address] [address] Social History Tobacco Use Types Packs/Day Years [...] Description 11/03/2025 1:00 PM EST Office Visit [facility] Physical Therapy Clinic 8 [place] [address] Keke Marrufo PA [address] [place] [phone] Cr Stapleton, PT 8 [place] [address] 11/10/2025 10:45 AM EST Office Visit [facility] Physical Therapy Clinic [address] [place] [address] Keke Marrufo PA [address] [place] [phone] Cr Stapleton, PT 8 [place] [address] 11/12/2025 11:30 AM EST Office Visit [facility] Therapy [facility] 8 [place] [address] Keke Marrufo PA [address] [place] [phone] Jonel Pat, SUPERVISOR FORMING AND TEMPERING 8 [place] [address] 11/16/2025 10:15 AM EST Office Visit [facility] Physical Therapy [address] [place] [address] Keke Marrufo PA [address] [place] [phone] Cr Stapleton, PT 8 [place] [address] 11/18/2025 1:00 PM EST Office Visit [facility] Therapy [facility] [address] [place] [address] Keke Marrufo PA [address] [place] [phone] FrancineJonel dozier, SUPERVISOR FORMING AND TEMPERING 8 [place] [address] 11/23/2025 10:15 AM EST Office Visit [facility] Physical Therapy [facility] 8 [place] [address] Keke Marrufo PA [address] [place] [phone] Cr Stapleton, PT 8 [place] [address] 11/25/2025 1:00 PM EST Office Visit [facility] Physical Therapy [address] [address] Keke Marrufo PA [address] [place] [phone] FrancineJonel dozier, SUPERVISOR FORMING AND TEMPERING 8 [place] [address] 11/30/2025 10:15 AM EST Office Visit [facility] Physical Therapy [address] [address] Keke Marrufo PA [address] [place] [phone] Cr Stapleton, PT 8 [place] [address] documented as of this encounter Visit Diagnoses Not on filedocumented in this encounter Care Teams Mechanical Process Engineer Relationship Specialty Start Date End Date Eric Dinh MD [address] [place] [phone] [email or web address] PCP - General Family Medicine 12/29/18 documented as of this encounter Additional Source Comments The information contained in this document represents components of the legal health record. It is not the complete legal health record.[facility]
--- OUTSIDE RECORDS SUMMARY | 2025-10-02 10:35 | XMS_ITS | Encounter Summary ---
Author Organization [facility] Address [address] [facility] [address] [place] [address] Phone Care Team Providers Care Night Clerk Auditor Name Role Phone Eric Dinh MD Primary Care Provider [phone]- [phone] Encounter Details Date Type Department Care Team (Late st Contact Info) Description 09/28/2023 Procedure Pass [facility], Ct Scan - [address] [address] Social History Tobacco Use Types Packs/Day Years [...] Description 11/03/2025 1:00 PM EST Office Visit [facility] Physical Therapy Clinic 8 [place] [address] Keke Marrufo PA [address] [place] [phone] Cr Stapleton, PT 8 [place] [address] 11/10/2025 10:45 AM EST Office Visit [facility] Physical Therapy Clinic [address] [place] [address] Keke Marrufo PA [address] [place] [phone] Cr Stapleton, PT 8 [place] [address] 11/12/2025 11:30 AM EST Office Visit [facility] Physical Therapy Clinic [address] [place] [address] Keke Marrufo PA [address] [place] [phone] Jonel Pat, SUPERINTENDENT OIL FIELD DRILLING 8 [place] [address] 11/16/2025 10:15 AM EST Office Visit [facility] Physical Therapy Clinic [address] [place] [address] [place] [address] Keke Marrufo PA [address] [place] [phone] Cr Stapleton, PT 8 [place] [address] 11/18/2025 1:00 PM EST Office Visit [facility] Physical Therapy Clinic [address] [place] [address] Keke Marrufo PA [address] [place] [phone] FrancineJonel dozier, SUPERINTENDENT OIL FIELD DRILLING 8 [place] [address] 11/23/2025 10:15 AM EST Office Visit [facility] Physical Therapy [facility] 8 [place] [address] Keke Marrufo PA [address] [place] [phone] Cr Stapleton, PT 8 [place] [address] 11/25/2025 1:00 PM EST Office Visit [facility] Physical Therapy [address] [address] Keke Marrufo PA [address] [place] [phone] FrancineJonel dozier, SUPERINTENDENT OIL FIELD DRILLING 8 [place] [address] 11/30/2025 10:15 AM EST Office Visit [facility] Physical Therapy [address] [address] Keke Marrufo PA [address] [place] [phone] Cr Stapleton, PT 8 [place] [address] documented as of this encounter Visit Diagnoses Not on filedocumented in this encounter Care Teams Night Clerk Auditor Relationship Specialty Start Date End Date Eric Dinh MD [address] [place] [phone] [email or web address] PCP - General Family Medicine 12/29/18 documented as of this encounter Additional Source Comments The information contained in this document represents components of the legal health record. It is not the complete legal health record.[facility]
--- OUTSIDE RECORDS SUMMARY | 2025-10-02 10:35 | XMS_ITS | Encounter Summary ---
Author Organization [facility] Address [address] [facility] [place] [address] Phone Care Team Providers Care Cmv Driver Name Role Phone Eric Dinh MD Primary Care Provider [phone] Encounter Details Date Type Department Care Team (Late st Contact Info) Description 08/20/2025 Procedure Pass [facility], Ct Scan - [address] [address] Social History Tobacco Use Types Packs/Day Years [...] Office Visit [facility] [address] [place] [address] [place] [address] Keke Marrufo PA [address] [place] [phone] Cr Stapleton, PT 8 [place] [address] 11/10/2025 10:45 AM EST Office Visit [facility] [address] [place] [address] Keke Marrufo PA [address] [place] [phone] Cr Stapleton, PT 8 [place] [address] 11/12/2025 11:30 AM EST Office Visit [facility] Physical Therapy Clinic [address] [place] [address] [place] [address] Keke Marrufo PA [address] [place] [phone] Jonel Pat, HARDBOARD FACTORY WORKER [address] [place] [phone] 11/16/2025 10:15 AM EST Office Visit [facility] Physical Therapy Clinic [address] [place] [address] [place] [address] Keke Marrufo PA [address] [place] [phone] Cr Stapleton, PT 8 [place] [address] 11/18/2025 1:00 PM EST Office Visit [facility] Physical Therapy Clinic [address] [place] [address] [place] [address] Keke Marrufo PA [address] [place] [phone] Jonel Pat, [address] [address] 11/23/2025 10:15 AM EST Office Visit [facility] Physical Therapy Clinic [address] [place] [address] [place] [address] Keke Marrufo PA [address] [place] [phone] Cr Stapleton, PT 8 [place] [address] 11/25/2025 1:00 PM EST Office Visit [facility] Physical Therapy Clinic 8 [place] [address] Keke Marrufo PA [address] [place] [phone] Jonel Pat, HARDBOARD FACTORY WORKER 8 [place] [address] 11/30/2025 10:15 AM EST Office Visit [facility] Physical Therapy Clinic [address] [place] [address] Keke Marrufo PA [address] [place] [phone] Cr Stapleton, PT 8 [place] [address] documented as of this encounter Visit Diagnoses Not on filedocumented in this encounter Care Teams Cmv Driver Relationship Specialty Start Date End Date Eric Dinh MD [address] [place] [phone] [email or web address] PCP - General Family Medicine 12/29/18 documented as of this encounter Additional Source Comments The information contained in this document represents components of the legal health record. It is not the complete legal health record.[facility]
--- OUTSIDE RECORDS SUMMARY | 2025-10-02 10:35 | XMS_ITS | Encounter Summary ---
Author Organization [facility] Address [address] [place] [address] Phone Care Team Providers Care Commercial Cleaner Name Role Phone Eric Dinh MD Primary Care Provider [phone] Encounter Details Date Type Department Care Team (Late st Contact Info) Description 08/20/2025 Procedure Pass [facility], Ct Scan - [address] [address] Social History Tobacco Use Types Packs/Day Years [...] Office Visit [facility] [address] [place] [address] [place] [address] Keke Marrufo PA [address] [place] [phone] Cr Stapleton, PT 8 [place] [address] 11/10/2025 10:45 AM EST Office Visit [facility] [address] [place] [address] Keke Marrufo PA [address] [place] [phone] Cr Stapleton, PT 8 [place] [address] 11/12/2025 11:30 AM EST Office Visit [facility] [address] [place] [address] [place] [address] Keke Marrufo PA [address] [place] [phone] Jonel Pat, PHYSICAL SCIENCES PROFESSOR [address] [place] [address] 11/16/2025 10:15 AM EST Office Visit [facility] Physical Therapy Clinic [address] [place] [address] [place] [address] Keke Marrufo PA [address] [place] [phone] Cr Stapleton, PT 8 [place] [address] 11/18/2025 1:00 PM EST Office Visit [facility] Physical Therapy [facility] [address] [place] [address] [place] [address] Keke Marrufo PA [address] [place] [phone] Jonel Pat, [address] [address] 11/23/2025 10:15 AM EST Office Visit [facility] [address] [place] [address] [place] [address] Keke Marrufo PA [address] [place] [phone] Cr Stapleton, PT 8 [place] [address] 11/25/2025 1:00 PM EST Office Visit [facility] Therapy Clinic 8 [place] [address] Keke Marrufo PA [address] [place] [phone] Jonel Pat, PHYSICAL SCIENCES PROFESSOR 8 [place] [address] 11/30/2025 10:15 AM EST Office Visit [facility] Physical Therapy Clinic [address] [place] [address] Keke Marrufo PA [address] [place] [phone] Cr Stapleton, PT 8 [place] [address] documented as of this encounter Visit Diagnoses Not on filedocumented in this encounter Care Teams Commercial Cleaner Relationship Specialty Start Date End Date Eric Dinh MD [address] [place] [phone] [email or web address] PCP - General Family Medicine 12/29/18 documented as of this encounter Additional Source Comments The information contained in this document represents components of the legal health record. It is not the complete legal health record.[facility]
--- OUTSIDE RECORDS SUMMARY | 2025-10-02 10:35 | XMS_ITS | Encounter Summary ---
Author Organization [facility] Address [address] [facility] [address] [place] [address] Phone Care Team Providers Care Construction Project Manager Name Role Phone Eric Dinh MD Primary Care Provider [phone]- [phone] Encounter Details Date Type Department Care Team (Late st Contact Info) Description 10/08/2023 Procedure Pass [facility], Ct Scan - [address] [address] Social History Tobacco Use Types Packs/Day Years [...] Description 11/03/2025 1:00 PM EST Office Visit [facility] Therapy [facility] 8 [place] [address] Keke Marrufo PA [address] [place] [phone] Cr Stapleton, PT 8 [place] [address] 11/10/2025 10:45 AM EST Office Visit [facility] [address] [place] [address] Keke Marrufo PA [address] [place] [phone] Cr Stapleton, PT 8 [place] [address] 11/12/2025 11:30 AM EST Office Visit [facility] [address] [place] [address] Keke Marrufo PA [address] [place] [phone] Jonel Pat, SLD INCLUSION TEACHER 8 [place] [address] 11/16/2025 10:15 AM EST Office Visit [facility] [address] [place] [address] [place] [address] Keke Marrufo PA [address] [place] [phone] Cr Stapleton, PT 8 [place] [address] 11/18/2025 1:00 PM EST Office Visit [facility] [address] [place] [address] Keke Marrufo PA [address] [place] [phone] FrancineJonel dozier, SLD INCLUSION TEACHER 8 [place] [address] 11/23/2025 10:15 AM EST Office Visit [facility] Physical Therapy [facility] 8 [place] [address] Keke Marrufo PA [address] [place] [phone] Cr Stapleton, PT 8 [place] [address] 11/25/2025 1:00 PM EST Office Visit [facility] Physical Therapy [address] [address] Keke Marrufo PA [address] [place] [phone] FrancineJonel dozier, SLD INCLUSION TEACHER 8 [place] [address] 11/30/2025 10:15 AM EST Office Visit [facility] Physical Therapy [address] [address] Keke Marrufo PA [address] [place] [phone] Cr Stapleton, PT 8 [place] [address] documented as of this encounter Visit Diagnoses Not on filedocumented in this encounter Care Teams Construction Project Manager Relationship Specialty Start Date End Date Eric Dinh MD [address] [place] [phone] [email or web address] PCP - General Family Medicine 12/29/18 documented as of this encounter Additional Source Comments The information contained in this document represents components of the legal health record. It is not the complete legal health record.[facility]
== END 2025-10-02 10:19 | disposition home or self-care (01) ==
LOC: HO.HUSH 09:43
PROVIDERS: PCP Family Medicine; Visit Provider Urology
DX: C61 Malignant neoplasm of prostate (principal); C79.51 Secondary malignant neoplasm of bone; C67.1 Malignant neoplasm of dome of bladder; N32.81 Overactive bladder; Z13.9 Encounter for screening, unspecified
CPT/HCPCS: 99213; G2211

== ENCOUNTER 2025-10-02 09:43 | Outpatient (REF) | payer OTHER, SELFPAY | END 2025-10-02 09:44 | disposition home or self-care (01) | LOC: HO.LAB 09:43 | PROVIDERS: PCP Family Medicine; Visit Provider Urology | DX: C61 Malignant neoplasm of prostate (principal); C79.51 Secondary malignant neoplasm of bone; C67.1 Malignant neoplasm of dome of bladder; N32.81 Overactive bladder; Z79.01 Long term (current) use of anticoagulants | CPT/HCPCS: 81003; 88112; 99212 ==